=== PATIENT | female | born 1945 | race Caucasian/White ===

== ENCOUNTER → 2018-01-04 18:53 | Outpatient (CLI) | payer MEDICARE, OTHER, SELFPAY | PROVIDERS: Visit Provider Physician Assistant Medical | DX: N39.0 Urinary tract infection, site not specified (principal) | CPT/HCPCS: 87086; 87088; 87186 ==

== ENCOUNTER → 2018-02-24 09:35 | Outpatient (CLI) | payer MEDICARE, OTHER, SELFPAY ==
--- NOTE | 2018-02-24 09:39 | CDU_ITS ---
Reason For Study: CAROTID STENOSIS Rt. Velocities/BP Lt. Velocities/BP Prox CCA 89.1/12.9 cm/sec. Prox CCA 93.2/26.4 cm/sec. Mid CCA 90.3/22.3 cm/sec. Mid CCA 99.1/25.8 cm/sec. Dist CCA 95.0/20.5 cm/sec. Dist CCA 89.7/22.9 cm/sec. Prox ICA 78.0/17.6 cm/sec. Prox ICA 70.4/18.2 cm/sec. Mid ICA 106.0/29.9 cm/sec. Mid ICA 127.0/39.3 cm/sec. Dist ICA 98.9/30.0 cm/sec. Dist ICA 84.2/30.7 cm/sec. Rt. ICA/CCA = 106.0/90.3=1.2. Lt. ICA/CCA = 127.0/99.1=1.3. Prox ECA 92.0/9.38 cm/sec. Prox ECA 86.8/10.6 cm/sec. Rt. Vert. 50.7/10.6 cm/sec. Lt. Vert. 55.4/15.3 cm/sec. Right Extracranial There is homogeneous, smooth atherosclerotic plaque noted in the right common carotid artery. There is homogeneous, smooth atherosclerotic plaque noted in the right internal carotid artery. The right internal carotid artery is very tortuous. There is intimal thickening but no significant atherosclerotic plaque noted in the right external carotid artery. Antegrade flow is noted in the right vertebral artery. There is heterogeneous, irregular atherosclerotic plaque noted in the right bulb. Left Extracranial There is homogeneous, smooth atherosclerotic plaque noted in the left common carotid artery. There is homogeneous, smooth atherosclerotic plaque noted in the left internal carotid artery. The left internal carotid artery is very tortuous. There is intimal thickening but no significant atherosclerotic plaque noted in the left external carotid artery. Antegrade flow is noted in the left vertebral artery. Procedure Carotid Duplex 80373. The exam was diagnostic. Exam performed in department. Interpretation Summary Mild (<50%) stenosis right extracranial internal carotid. Moderate (50-69%) stenosis left extracranial internal carotid. Flow within the vertebral arteries is antegrade bilaterally. Ordering Physician: Ronaldo Durham Referring Physician: Ronaldo Ruiz Performed By: Liberty Green, TYLER, RVT
== END ==
PROVIDERS: Family Provider Family Medicine; PCP Family Medicine; Visit Provider Surgery Vascular Surgery
DX: R09.89 Other specified symptoms and signs involving the circulatory and respiratory systems (principal); M79.89 Other specified soft tissue disorders; M79.604 Pain in right leg; M79.605 Pain in left leg; I10 Essential (primary) hypertension; E07.9 Disorder of thyroid, unspecified; Z87.19 Personal history of other diseases of the digestive system
CPT/HCPCS: 93880

== ENCOUNTER → 2018-03-02 12:36 | Outpatient (CLI) | payer MEDICARE, OTHER, SELFPAY | PROVIDERS: Family Provider Family Medicine; PCP Family Medicine; Visit Provider Nurse Practitioner Adult Health | DX: R82.99 Other abnormal findings in urine (principal) | CPT/HCPCS: 87086; 87088 ==

== ENCOUNTER 2018-03-11 21:33 | Emergency (ER) | payer MEDICARE, OTHER, SELFPAY ==
[2018-03-11 21:35] VITALS: BP 131/76; PULSE 95; RESP 20; TEMP 37.6; O2SAT 96; BMI 24.4
--- NOTE | 2018-03-11 22:14 | CT_ITS ---
STUDY: CT BRAIN WITHOUT CONTRAST REASON FOR EXAM: Female, 72 years old. Headache and fever. Fell 2 weeks ago. RADIATION DOSAGE (If Supplied By Facility): CTDIvol = ( 44.99 ) mGy, DLP = ( 745.49 ) mGycm TECHNIQUE: Transaxial CT imaging of the brain was performed without administration of intravenous contrast material. Individualized dose optimization techniques were used for this CT. COMPARISON: MR brain November 20, [address] brain August 17, 2012 FINDINGS: Normal soft tissue structures. Normal calvarium. Normal size ventricles and extra-axial spaces for the patient's age. Normal white matter tracts of the cerebral hemispheres. Normal basal ganglia and thalami. Normal brainstem. Normal cerebellum. There is no intracranial hemorrhage. There are no findings of an acute ischemic infarction. Normal visualized paranasal sinuses. CT/Brain/Head without Contrast IMPRESSION: Normal unenhanced CT scan of the brain. Electronically Signed: Cain Randhawa MD at 23:06 EDT , Service support ,
--- NOTE | 2018-03-11 22:16 | CT_ITS ---
STUDY: CT CERVICAL SPINE WITHOUT CONTRAST REASON FOR EXAM: Female, 72 years old. Headache. Recent fall. RADIATION DOSAGE (If Supplied By Facility): CTDIvol = ( 15.10 ) mGy, DLP = ( 289.43 ) mGycm TECHNIQUE: High resolution transaxial imaging was performed without contrast material. Sagittal and coronal images were reconstructed. Individualized dose optimization techniques were used for this CT. COMPARISON: March 24, 2014 FINDINGS: Normal craniovertebral junction. Normal anterior atlantoaxial articulation. Normal odontoid process. There is straightening of the normal cervical lordosis. There is no fracture. Normal vertebral bodies and posterior osseous elements. C2-3: Normal endplates. Normal disc height and morphology. Normal central canal and intervertebral neuroforamina. C3-4: Disc bulge with mild spurring. Mild facet spurring.. Normal central canal and intervertebral neuroforamina. C4-5: Disc bulge with mild spurring. Normal central canal and intervertebral neuroforamina. C5-6: Disc space narrowing. Disc bulge and spurring flattening the thecal sac. Uncovertebral spurring bilateral foraminal narrowing. C6-7: Disc space narrowing. Disc bulge and spurring. Mild left foraminal narrowing. C7-T1: Normal endplates. Normal disc height and morphology. Normal central canal and intervertebral neuroforamina. Normal visualized soft tissue structures. CT/Spine Cervical without Contras IMPRESSION: Multilevel degenerative changes, as described above. Electronically Signed: Priyank Pool MD at 23:36 EDT , Service support ,
--- NOTE | 2018-03-11 22:17 | ED.VISSUMM ---
- ER Visit Summary Date of Service: 03/11/18 Chief Complaint: Dysuria, head injury History of Present Illness: The patient is a 72 F here with multiple complaints. Primary today states 1 week history of dysuria and frequency. States saw urology office a week ago, was told her urine was negative. Continue to have symptoms, went to urgent care yesterday was told she had a UTI, placed on Macrobid status post 3 doses. Still has symptoms. Today had a fever of 102.6 forehead at 8 PM this evening. No Tylenol or Motrin taken. Nausea and vomiting ?1. No hematemesis. No abdominal or back pain. No cough. The edition states she took wgnk-mge-oygvyuv Pyridium 1 dose around 1 PM, 3 hours later noticed burning and redness to the lower extremities. No lip or tongue swelling. Also states she had a mechanical fall 2 weeks ago outside in the grass. She hit her head, denies loss of consciousness. Complains of headache neck pain and right shoulder pain from the fall. 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 She has not had this evaluated since the injury. No visual changes. Physical Examination: General: Alert and oriented ?3, no acute distress HEENT: Normocephalic, atraumatic. Moist mucosa membranes. No hemotympanum. No head contusions or lacerations. Neck: supple, no midline tenderness or step-off, paracervical tenderness bilaterally. Cardiovascular: Regular rate and rhythm, no murmurs Respiratory: Normal breath sounds, symmetric, no distress Abdomen: Soft, nontender, nondistended. No guarding or rebound. Extremities: Right upper extremity: No clavicle tenderness. Mild tenderness proximal shoulder with no deformities. Passive full range of motion. Skin intact. Neurovascular intact distally. Lower extremities: Negative logroll bilaterally. Distal pulses intact. Bilateral lower extremities noted erythema to anterior shins, there is no urticaria, nontender, no drainage. Skin intact. Neuro: no focal neurological deficits. Cranial nerves II through XII intact. Test Results: WBC 8.1. Hemoglobin 12.3. Potassium 4.0. Creatinine normal. INR 2.1. Lactic acid 1.1. UA positive leukocytes, blood, white blood cell count 5-10. Urine culture pending. Blood cultures ?[address] head and neck no acute process. Right shoulder x-ray negative. Chest x-ray negative. Emergency Department Course and Treatment: Patient nontoxic, planes of fatigue. Reported temp at home of 102, heart rate was 95. Sepsis protocol initiated. Given IV fluids. Benadryl given for concerns for side effect from her qqws-nrb-dhigtny Pyridium with erythema and burning to the legs. Workup initiated. Results negative except for slight UTI. She states she has persistent dysuria and frequency after 3 doses of Macrobid. She states urine culture was sent by urgent care. Discussed with patient can switch antibiotics and checking up on the culture with urgent care for sensitivities tomorrow. Patient agrees with plan. She is started on Keflex. Culture here is also pending. As for her injury 2 weeks ago on Xarelto, image studies of the head and neck right shoulder are negative. Chest x-ray negative. Complains of headache. Concussion symptoms discussed. She will use Tylenol as needed. She will hold her Macrobid. She will hold her mgnn-oyi-buetzzp Pyridium. Treatment Plan: [] Disposition: Discharge Impression: 1. Urinary tract infection 2. Concussion without loss of consciousness 3.Right shoulder contusion This note was generated with [employer] dictation software. It may contain incorrect words, spelling, and punctuation that were not noted in review of the chart prior to signing ED Disposition - Plan for ED Patient: Disposition: Home or Assisted Living Chief Complaint: General Illness Diagnosis: UTI (urinary tract infection), Concussion without loss of consciousness, initial encounter, Contusion of right shoulder Instructions: ED UTI Cystitis Female, ED Concussion, ED Contusion Soft Tissue Prescriptions: Cephalexin [Keflex] 500 mg PO BID #14 capsule Referrals: Ronaldo Ruiz DO [Primary Care Provider] - 3-5 Days Additional Instructions: Hold her Macrobid. Start Keflex. Call urgent care for culture results. If unable to obtain, can wait for culture results here. Tylenol as needed for headaches. Stop your Pyridium [id number]-hkipxvk, use Benadryl every 6 hours as needed.
--- NOTE | 2018-03-11 22:20 | ED.DCSUM_ITS ---
- ER Visit Summary Date of Service: 03/11/18 Chief Complaint: Dysuria, head injury History of Present Illness: The patient is a 72 F here with multiple complaints. Primary today states 1 week history of dysuria and frequency. States saw urology office a week ago, was told her urine was negative. Continue to have symptoms, went to urgent care yesterday was told she had a UTI , placed on Macrobid status post 3 doses. Still has symptoms. Today had a fever of 102.6 forehead at 8 PM this evening. No Tylenol or Motrin taken. Nausea and vomiting ?1. No hematemesis. No abdominal or back pain. No cough. The edition states she took rtjg-bgb-xehzaxn Pyridium 1 dose around 1 PM, 3 hours later noticed burning and redness to the lower extremities. No lip or tongue swelling. Also states she had a mechanical fall 2 weeks ago outside in the grass. She hit her head, denies loss of consciousness. Complains of headache neck pain and right shoulder pain from the fall. 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 She has not had this evaluated since the injury. No visual changes. Physical Examination: General: Alert and oriented ?3, no acute distress HEENT: Normocephalic, atraumatic. Moist mucosa membranes. No hemotympanum. No head contusions or lacerations. Neck: supple, no midline tenderness or step-off, paracervical tenderness bilaterally. Cardiovascular: Regular rate and rhythm, no murmurs Respiratory: Normal breath sounds, symmetric, no distress Abdomen: Soft, nontender, nondistended. No guarding or rebound. Extremities: Right upper extremity: No clavicle tenderness. Mild tenderness proximal shoulder with no deformities. Passive full range of motion. Skin intact. Neurovascular intact distally. Lower extremities: Negative logroll bilaterally. Distal pulses intact. Bilateral lower extremities noted erythema to anterior shins, there is no urticaria, nontender, no drainage. Skin intact. Neuro: no focal neurological deficits. Cranial nerves II through XII intact. Test Results: WBC 8.1. Hemoglobin 12.3. Potassium 4.0. Creatinine normal. INR 2.1. Lactic acid 1.1. UA positive leukocytes, blood, white blood cell count 5-10. Urine culture pending. Blood cultures ?[address] head and neck no acute process. Right shoulder x-ray negative. Chest x-ray negative. Emergency Department Course and Treatment: Patient nontoxic, planes of fatigue. Reported temp at home of 102, heart rate was 95. Sepsis protocol initiated. Given IV fluids. Benadryl given for concerns for side effect from her over-the- counter Pyridium with erythema and burning to the legs. Workup initiated. Results negative except for slight UTI. She states she has persistent dysuria and frequency after 3 doses of Macrobid. She states urine culture was sent by urgent care. Discussed with patient can switch antibiotics and checking up on the culture with urgent care for sensitivities tomorrow. Patient agrees with plan. She is started on Keflex. Culture here is also pending. As for her injury 2 weeks ago on Xarelto, image studies of the head and neck right shoulder are negative. Chest x-ray negative. Complains of headache. Concussion symptoms discussed. She will use Tylenol as needed. She will hold her Macrobid. She will hold her devz-vdl-slkyhwx Pyridium. Treatment Plan: [] Disposition: Discharge Impression: 1. Urinary tract infection 2. Concussion without loss of consciousness 3.Right shoulder contusion This note was generated with [employer] dictation software. It may contain incorrect words, spelling, and punctuation that were not noted in review of the chart prior to signing ED Disposition - Plan for ED Patient: Disposition: Home or Assisted Living Chief Complaint: General Illness Diagnosis: UTI (urinary tract infection), Concussion without loss of consciousness, initial encounter, Contusion of right shoulder Instructions: ED UTI Cystitis Female, ED Concussion, ED Contusion Soft Tissue Prescriptions: Cephalexin [Keflex] 500 mg PO BID #14 capsule Referrals: Ronaldo Ruiz DO [Primary Care Provider] - 3-5 Days Additional Instructions: Hold her Macrobid. Start Keflex. Call urgent care for culture results. If unable to obtain, can wait for culture results here. Tylenol as needed for headaches. Stop your Pyridium awzi-qza-lkvhhfk, use Benadryl every 6 hours as needed.
[2018-03-11] MEDS: DiphenhydrAMINE 50 MG/ML Syringe 25 MG IV (22:30)
[2018-03-11 22:38] LABS: International Normalized Ratio 2.1
[2018-03-11 22:39] LABS: Partial Thromboplast Time 40.4 Seconds (24.1-36.2)
--- NOTE | 2018-03-11 22:40 | RAD_ITS ---
STUDY: X-RAY - RIGHT SHOULDER REASON FOR EXAM: Female, 72 years old. Injury right shoulder TECHNIQUE: 4 view(s) of the shoulder. COMPARISON: None. FINDINGS: Normal glenohumeral articulation. Normal acromioclavicular joint. Normal acromion. Normal humeral head and visualized proximal humerus. The soft tissue structures are unremarkable. Normal visualized pulmonary apex. RAD/Shoulder min 2 Views IMPRESSION: Normal x-ray examination of the shoulder. Electronically Signed: Cain Randhawa MD at 23:57 EDT , Service support ,
--- NOTE | 2018-03-11 22:40 | RAD_ITS ---
STUDY: X-RAY CHEST REASON FOR EXAM: Female, 72 years old. Fever. TECHNIQUE: PA and lateral views of the chest. COMPARISON: 02/18/2017. FINDINGS: There is mild stranding in the left lung base likely due to scarring. No focal infiltrate is seen. There is no demonstrated pleural abnormality. Normal size heart. Normal mediastinum and tres. Normal visualized pulmonary arteries. There is mild atherosclerotic tortuosity of the aortic arch and descending thoracic aorta. There is levoscoliosis of the lower thoracic spine. Normal visualized ribs, clavicles, and shoulders. There is no demonstrated abnormality of the visualized soft tissue structures of the upper abdomen. RAD/Chest PA and Lateral IMPRESSION: Stranding/scarring in the left lung base. No active pulmonary disease. Electronically Signed: Checo Salinas MD at 23:25 EDT Tel , Service support ,
[2018-03-11 22:42] LABS: Absolute Lymphocyte Count 0.42 X10^3/ul (0.83-4.51); Absolute Neutrophil Count 7.2 X10^3/uL (2.0-7.7); Basophil# 0.04 X10^3/uL; Basophil% 0.5 % (0-1); Eosinophil# 0.07 X10^3/uL; Eosinophils% 0.9 % (0-5); Hematocrit 36.7 % (37-47); Hemoglobin 12.3 g/dl (12.0-15.0); Lymphocyte # 0.42 X10^3/ul (4.0); Lymphocyte % 5.2 % (19-41); Mean Corp Hgb Conc 33.5 g/gl (32-36); Mean Corpuscular Hgb 27.8 pg (27.0-32.0); Mean Platelet Vol. 9.4 fl (6.2-12.0); Monocyte# 0.29 X10^3/uL; Monocyte% 3.6 % (0-10); Neutrophil # 7.24 X10^3/uL (2.7-7.7); Neutrophil % 89.6 % (47-70); Platelet Count 195 K/mm3 (150-450); RBC Distribution Width CV 13.4 % (11.6-14.6); RBC Distribution Width SD 40.7 fl (35.1-43.9); Red Blood Count 4.42 M/mm3 (4.2-5.4); White Blood Count 8.1 K/mm3 (4.4-11.0)
[2018-03-11 22:43] LABS: Differential Indicated SCAN CRITERIA MET; POSITIVE COUNT NO; POSITIVE DIFFERENTIAL YES; POSITIVE MORPHOLOGY NO
[2018-03-11 22:47] LABS: ALB/GLOB Ratio 0.6 RATIO (0.9-2.4); AST(SGOT) 29 U/L (15-37); Alanine Aminotransfer ALT/SGPT 18 U/L (13-56); Albumin, Serum 3.3 g/dL (3.2-5.0); Alkaline Phosphatase 60 U/L (45-117); Anion Gap 8 (5-15); BUN 10 mg/dL (7-18); BUN/Creat Ratio 12.7 RATIO (10-20); Calcium,Total 8.4 mg/dL (8.5-10.1); Chloride 99 mmol/L (98-107); Creatinine, Serum 0.79 mg/dL (0.55-1.02); EST Glomerular Filtration Rate 76 mL/min (>60); Est Glom Filt Rate - Afr Amer 92 mL/min (>60); Estimated Creatinine Clearance 37.24 ml/min; Globulin 5.6 g/dL (2.2-4.2); Glucose 109 mg/dL (74-106); Protein, Total 8.9 g/dL (6.4-8.2); Sodium Level 132 mmol/L (136-145)
[2018-03-11 23:13] LABS: Lactic Acid 1.1 mmol/L (0.4-2.0)
[2018-03-11 23:16] LABS: Differential Comment SCANNED
[2018-03-11 23:17] LABS: Mucous, Urine 0 SEEN /hpf (<or=2+)
[2018-03-11 23:20] LABS: Color, Urine Yellow (Yellow); Glucose, Dipstick Normal (Normal); Ketone-Dipstick 5 mg/dl (Negative); Leukocyte Esterase-Dipstick 100 /ul (Negative); Nitrite-Dipstick Negative (Negative); Occult Blood-Urine 25 /ul (Negative); Protein-Dipstick Negative (Negative); Urine Bilirubin Dipstick Negative (Negative); Urine Clarity Clear (Clear); Urine Urobilinogen Normal (Normal)
[2018-03-11 23:33] LABS: Bacteria RARE /hpf (None Seen); Red Blood Cells-Urine 0-5 SEEN /hpf (0-5); Squamous Epithelial Cells - UA 0-5 SEEN /hpf (5-10); White Blood Cells 5-10 SEEN /hpf (0-5)
[2018-03-12] VITALS: BP 162/63; PULSE 79; RESP 18; O2SAT 92
[2018-03-12] MEDS: Cephalexin 250 MG Capsule 500 MG PO (00:18)
--- NOTE | 2018-03-13 18:21 | ED.RN ---
Called patient at 1325 with no answer or no opportunity to leave messages at two numbers. I recalled at 1816 and explained the preliminary blood culture was positive and Dr Fortune requested she return for additional testing. The patient refused stating she didn't want another Emergency visit to pay. She has an appointment with the Urologist and agreed to return if her sx became worse.
--- NOTE | 2018-03-14 01:34 | ED.RN ---
LAB CALLED WITH POSITIVE BLOOD CULTURES. ANAEROBIC CULTURE POSITIVE AT THIS TIME. GRAM + COCCI. ACCORDING TO PREVIOUS NOTE PATIENT REFUSING FURTHER ER VISIT OR TREATMENT AT THIS TIME. AT THIS TIME I WILL DISCUSS WITH DR. HOWARD BUT PATIENT IS REFUSING FURTHER CARE UNTIL SEEN BY UROLOGIST.
== END 2018-03-12 00:19 | disposition home or self-care (01) ==
PROVIDERS: Emergency Provider Emergency Medicine; Family Provider Family Medicine; PCP Family Medicine
DX: N39.0 Urinary tract infection, site not specified (principal); S06.0X0A Concussion without loss of consciousness, initial encounter; S40.011A Contusion of right shoulder, initial encounter; W19.XXXA Unspecified fall, initial encounter; Y93.9 Activity, unspecified; Y92.9 Unspecified place or not applicable; I10 Essential (primary) hypertension; E03.9 Hypothyroidism, unspecified; M79.7 Fibromyalgia; Z86.711 Personal history of pulmonary embolism; Z86.718 Personal history of other venous thrombosis and embolism; Z90.49 Acquired absence of other specified parts of digestive tract; Z90.710 Acquired absence of both cervix and uterus; Z79.01 Long term (current) use of anticoagulants; Z79.899 Other long term (current) drug therapy
CPT/HCPCS: 36415; 70450; 71046; 72125; 73030; 80053; 81001; 83605; 85025; 85610; 85730; 87040; 87077; 87086; 87088; 87149; 87186; 96361; 96374; 99285; J7030; J7040; A4216

== ENCOUNTER → 2018-04-07 15:15 | Outpatient (CLI) | payer MEDICARE, OTHER, SELFPAY ==
--- NOTE | 2018-04-07 15:17 | BI_ITS ---
MAMMOGRAPHY - BILATERAL SCREENING 3-D ANUSHA SYNTHESIS REASON FOR EXAM: Female, 72 years old. Bilateral Screening 3-D tomosynthesis PERTINENT HISTORY: No significant family history. TECHNIQUE: 2-D mammograms and 3-D Anusha synthesis of the breast (s) were performed. CAD was performed. COMPARISON: 2013 FINDINGS: The breast composition is heterogeneously dense that can obscure small breast masses. There is a new suspicious spiculated mass in the central posterior, slightly medial aspect of the right breast deep near the retroglandular fat. This is highly concerning for neoplastic process and further evaluation with ultrasound is recommended. The left breast is unchanged, no new suspicious mass or nodule noted. Stable vascular calcifications. BI/SCREENING MAMM (CAD), BILAT IMPRESSION: Suspicious new 1.5 cm spiculated mass in the central posterior medial right breast which needs further evaluation with ultrasound. If this mass should again demonstrate suspicious characteristics on ultrasound, biopsy would be recommended. ASSESSMENT CATEGORY: BIRADS Category 0: Incomplete. Need additional imaging evaluation as above. A letter regarding these results will be sent to the patient by the facility within 30 days. FOLLOW UP RECOMMENDATION: Ultrasound Recommended. (I) Approximately 10% of breast cancers are not detected by mammography. A normal mammogram should not delay biopsy of a clinically suspicious abnormality. Electronically Signed: Lawson Dias MD at 7:47 EDT , Service support ,
== END ==
PROVIDERS: Family Provider Family Medicine; PCP Family Medicine; Visit Provider Family Medicine
DX: Z12.31 Encounter for screening mammogram for malignant neoplasm of breast (principal)
CPT/HCPCS: 77063; 77067

== ENCOUNTER → 2018-04-12 11:24 | Outpatient (CLI) | payer MEDICARE, OTHER, SELFPAY ==
--- NOTE | 2018-04-12 11:30 | US_ITS ---
STUDY: ULTRASOUND BREAST - RIGHT REASON FOR EXAM: Female, 72 years old. Abnormal right screening mammogram. TECHNIQUE: Axial and longitudinal images of the RIGHT breast were performed with a high resolution ultrasound transducer. COMPARISON: Comparison is made with prior mammogram dated April 07, 2018. FINDINGS: RIGHT Breast: There is a 9 mm x 8 mm x 8 mm spiculated hypoechoic solid mass at the 1:00 position breast a 6 times from the nipple. A neoplastic process should be ruled out. A biopsy is recommended. US/Breast Limited Unilateral IMPRESSION: The mammographic abnormality corresponds to a 9 mm x 8 mm x 18 mm spiculated mass as described. A biopsy is recommended. ASSESSMENT CATEGORY: BIRADS Category 4: Suspicious - Biopsy Should Be Considered. A letter regarding these results will be sent to the patient by the facility within 30 days. Electronically Signed: Ananda Aguilar MD at 13:53 EDT Tel [phone], Service support ,
== END ==
PROVIDERS: Family Provider Family Medicine; PCP Family Medicine; Visit Provider Family Medicine
DX: N63.10 Unspecified lump in the right breast, unspecified quadrant (principal)
CPT/HCPCS: 76642

== ENCOUNTER → 2018-05-20 17:41 | Outpatient (CLI) | payer MEDICARE, OTHER, SELFPAY | PROVIDERS: Family Provider Family Medicine; PCP Family Medicine; Visit Provider Otolaryngology | DX: J32.0 Chronic maxillary sinusitis (principal) | CPT/HCPCS: 70486 ==

== ENCOUNTER → 2018-11-25 13:09 | Outpatient (CLI) | payer MEDICARE, OTHER, SELFPAY ==
[2018-11-25 14:14] LABS: D-Dimer Quantitative (DVT/PE) 0.89 FEU/ug/m (0.27-0.49)
== END ==
PROVIDERS: Family Provider Family Medicine; PCP Family Medicine; Referring Provider Internal Medicine Pulmonary Disease; Visit Provider Internal Medicine Pulmonary Disease
DX: Z86.711 Personal history of pulmonary embolism (principal); Z86.718 Personal history of other venous thrombosis and embolism
CPT/HCPCS: 36415; 85379

== ENCOUNTER → 2018-11-26 12:47 | Outpatient (CLI) | payer MEDICARE, OTHER, SELFPAY ==
--- NOTE | 2018-11-26 12:55 | VDLE_ITS ---
Reason For Study: Elevated D-Dimer Hx of DVT/PE RIGHT LEFT GSV is normal. GSV is normal. CFV is compressible, spontaneous, phasic, CFV is compressible, spontaneous, phasic, competent and demonstrates normal competent, and demonstrates normal augmentation. augmentation. FV is compressible, spontaneous, phasic, FV is compressible, spontaneous, phasic, competent and demonstrates normal competent and demonstrates normal augmentation. augmentation. POP V is compressible, spontaneous, phasic, POP V is compressible, spontaneous, phasic, competent and demonstrates normal competent and demonstrates normal augmentation. augmentation. T/P Trunk is compressible. T/P Trunk is compressible. PTV is compressible. PTV is compressible. RT PerV is compressible. LT PerV is compressible. Procedure Exam performed in department. A preliminary report was called and/or faxed to Dr. Paulino. Interpretation Summary Deep veins of the lower extremities are bilaterally patent and compressible segmentally. There is no evidence of deep vein thrombosis on either side. Valvular competence appears intact within the proximal deep venous systems bilaterally. The greater saphenous veins appear bilaterally patent and compressible segmentally. Ordering Physician: Anthony Paulino Referring Physician: Ronaldo Ruiz Performed By: Elvira Jerry RVT
== END ==
PROVIDERS: Family Provider Family Medicine; PCP Family Medicine; Referring Provider Internal Medicine Pulmonary Disease; Visit Provider Internal Medicine Pulmonary Disease
DX: Z86.711 Personal history of pulmonary embolism (principal); Z86.718 Personal history of other venous thrombosis and embolism
CPT/HCPCS: 93970

== ENCOUNTER → 2019-01-13 | Outpatient (CLI) | payer MEDICARE, OTHER, SELFPAY ==
--- NOTE | 2019-01-13 14:50 | US_ITS ---
STUDY: RENAL ULTRASOUND - COMPLETE REASON FOR EXAM: Female, 73 years old. Left flank pain TECHNIQUE: Ultrasound evaluation of the kidneys was performed with real-time and static garcia-scale imaging. COMPARISON: None. FINDINGS: RIGHT KIDNEY: Normal location of the right kidney, which is normal in size. The right kidney measures 9.5 cm. There is a normal cortex of the right kidney. The renal cortex measures 1 cm. There is no right renal mass or cyst. There are no right renal calculi. There is no right hydronephrosis. DISTAL RIGHT URETER: There is non-visualization of the distal right ureter. There is no demonstrated right ureterovesical junction calculus. There is no demonstrated right ureteral jet. LEFT KIDNEY: Normal location of the left kidney, which is normal in size. The left kidney measures 10 cm. There is a normal cortex of the left kidney. The renal cortex measures 1.1 cm. There is no left renal mass or cyst. There are no left renal calculi. There is no left hydronephrosis. DISTAL LEFT URETER: There is non-visualization of the distal left ureter. There is no demonstrated left ureterovesical junction calculus. There is no demonstrated left ureteral jet. BLADDER: The distended urinary bladder has a volume of 152 ml. There is a normal wall thickness of the distended urinary bladder. There is no demonstrated mass within the urinary bladder. There are no demonstrated bladder calculi. US/Kidney and Bladder IMPRESSION: Normal ultrasound of the kidneys and urinary bladder. Electronically Signed: Gennydwayne Porter, at 16:32 EDT Tel , Service support ,
== END | disposition home or self-care (01) ==
LOC: US 14:49
PROVIDERS: Family Provider Family Medicine; PCP Family Medicine; Referring Provider Urology; Visit Provider Urology
DX: R10.9 Unspecified abdominal pain (principal)
CPT/HCPCS: 76770

== ENCOUNTER → 2019-03-21 | Outpatient (CLI) | payer MEDICARE, OTHER, SELFPAY ==
--- NOTE | 2019-03-21 12:52 | VDLE_ITS ---
Reason For Study: HX PE/ DVT RIGHT LEFT GSV is normal. GSV is normal. CFV is compressible, spontaneous, phasic, CFV is compressible, spontaneous, phasic, competent and demonstrates normal competent, and demonstrates normal augmentation. augmentation. FV is compressible, spontaneous, phasic, FV is compressible, spontaneous, phasic, competent and demonstrates normal competent and demonstrates normal augmentation. augmentation. POP V is compressible, spontaneous, phasic, POP V is compressible, spontaneous, phasic, competent and demonstrates normal competent and demonstrates normal augmentation. augmentation. T/P Trunk is compressible. T/P Trunk is compressible. PTV is compressible. PTV is compressible. RT PerV is compressible. LT PerV is compressible. There is a very small portion of the POPV that is partially compressible with echogenicity consistent with chronic DVT. Procedure Exam performed in department. A preliminary report was called and/or faxed to DR PAULINO. Interpretation Summary Chronic venous changes are noted in the right popliteal vein, which is partially compressible. The remainder of the deep venous system in both lower extremities is patent and compressible. Valvular competence appears intact within the proximal deep venous systems bilaterally. The greater saphenous veins appear bilaterally patent and compressible segmentally. Ordering Physician: Anthony Paulino Referring Physician: RICARDO ZARCO Performed By: Linda SCOTT, МАРИНА, [place] and Student
== END | disposition home or self-care (01) ==
LOC: CVS 12:50
PROVIDERS: Family Provider Family Medicine; PCP Family Medicine; Referring Provider Internal Medicine Pulmonary Disease; Visit Provider Internal Medicine Pulmonary Disease
DX: Z86.711 Personal history of pulmonary embolism (principal); Z86.718 Personal history of other venous thrombosis and embolism
CPT/HCPCS: 93970

== ENCOUNTER → 2019-04-13 | Outpatient (CLI) | payer MEDICARE, OTHER, SELFPAY ==
[2019-04-12 16:39] VITALS: BMI 24.4
[2019-04-13 15:11] LABS: Bacteria 0 SEEN /hpf (None Seen); Mucous, Urine 0 SEEN /hpf (<or=2+); Squamous Epithelial Cells - UA 0 SEEN /hpf (5-10)
[2019-04-13 15:52] LABS: Color, Urine Yellow (Yellow); Glucose, Dipstick Normal (Normal); Ketone-Dipstick Negative (Negative); Leukocyte Esterase-Dipstick 500 /ul (Negative); Nitrite-Dipstick Negative (Negative); Occult Blood-Urine 250 /ul (Negative); Protein-Dipstick 100 mg/dl (Negative); Specific Gravity, Urine 1.015 (1.002-1.030); Urine Bilirubin Dipstick Negative (Negative); Urine Clarity Cloudy (Clear); Urine Urobilinogen Normal (Normal)
[2019-04-13 16:23] LABS: Red Blood Cells-Urine 0 SEEN /hpf (0-5)
[2019-04-13 16:24] LABS: White Blood Cells >100 SEEN /hpf (0-5)
== END | disposition home or self-care (01) ==
LOC: LABSPEC 15:03
PROVIDERS: Family Provider Family Medicine; PCP Family Medicine; Referring Provider Physician Assistant Surgical; Visit Provider Physician Assistant Surgical
DX: N30.01 Acute cystitis with hematuria (principal)
CPT/HCPCS: 81001; 87077; 87086; 87088; 87186

== ENCOUNTER → 2019-12-19 09:25 | Outpatient (CLI) | payer MEDICARE, OTHER, SELFPAY ==
[2019-04-12 16:39] VITALS: BMI 24.4
--- NOTE | 2019-12-19 09:35 | US_ITS ---
STUDY: SUPERFICIAL ULTRASOUND - RIGHT LATERAL THIGH. REASON FOR EXAM: Female, 74 years old. RT THIGH MASS -SWELLING/PAIN-2 yrs. TECHNIQUE: A superficial ultrasound was performed with real-time and static call-scale imaging. COMPARISON: None. FINDINGS: Sonographic examination of the area of concern along the lateral aspect of the right thigh was obtained. No sonographic abnormality is seen. US/Ext Non Vasc Limited/Soft Tiss IMPRESSION: No sonographic abnormality is seen. Electronically Signed: Ananda Aguilar, at 11:17 EDT , Service support ,
== END ==
PROVIDERS: PCP Family Medicine; Referring Provider Family Medicine; Visit Provider Family Medicine
DX: M79.651 Pain in right thigh (principal)
CPT/HCPCS: 76882

== ENCOUNTER → 2019-12-21 11:33 | Outpatient (CLI) | payer MEDICARE, OTHER, SELFPAY ==
[2019-04-12 16:39] VITALS: BMI 24.4
--- NOTE | 2019-12-21 11:43 | RAD_ITS ---
STUDY: X-RAY - RIGHT FEMUR REASON FOR STUDY: Female, 74 years old. Pt. states NKI, has had the feeling like something ruptured in her leg for years, constant painful burning mid femur area TECHNIQUE: 2 view(s) of the femur. COMPARISON: None. FINDINGS: Normal visualized femur. Total knee replacement. Normal visualized soft tissue structure. RAD/Femur Min 2 Views IMPRESSION: Normal x-ray examination of the femur. Total knee replacement. Electronically Signed: Ananda Aguilar, at 12:42 EDT , Service support ,
== END ==
PROVIDERS: PCP Family Medicine; Referring Provider Family Medicine; Visit Provider Family Medicine
DX: M79.89 Other specified soft tissue disorders (principal); M79.651 Pain in right thigh
CPT/HCPCS: 73552

== ENCOUNTER → 2020-01-13 16:51 | Outpatient (CLI) | payer MEDICARE, OTHER, SELFPAY ==
[2019-04-12 16:39] VITALS: BMI 24.4
[2020-01-13 17:19] LABS: International Normalized Ratio 1.1; Prothrombin Time (Protime)PT. 13.3 SECONDS (11.7-14.9)
== END ==
PROVIDERS: PCP Family Medicine
DX: C50.211 Malignant neoplasm of upper-inner quadrant of right female breast (principal)
CPT/HCPCS: 36415; 85610

== ENCOUNTER → 2020-05-10 12:23 | Outpatient (CLI) | payer MEDICARE, OTHER, SELFPAY ==
[2019-04-12 16:39] VITALS: BMI 24.4
--- NOTE | 2020-05-10 12:31 | RAD_ITS ---
STUDY: X-RAY CHEST REASON FOR EXAM: Female, 74 years old. SOB AND WHEEZING. TECHNIQUE: PA and lateral views of the chest. COMPARISON: Previous study of 03/03/2018 FINDINGS: There is mild linear fibrosis of the left lung base. There is no demonstrated pleural abnormality. Normal size heart. Normal mediastinum and tres. Normal visualized pulmonary arteries. There are calcified plaques of the thoracic aorta. There is a thoracolumbar levoscoliosis. Normal visualized ribs, clavicles, and shoulders. The status post right mastectomy changes. RAD/Chest PA and Lateral IMPRESSION: Apparently status post right mastectomy. Calcified plaques of the thoracic aorta. Thoracolumbar levoscoliosis. No acute cardiopulmonary disease process is seen. Electronically Signed: Ernie Gordon MD at 23:45 EDT , Service support ,
== END ==
PROVIDERS: PCP Family Medicine; Referring Provider Internal Medicine Pulmonary Disease; Visit Provider Internal Medicine Pulmonary Disease
DX: J45.30 Mild persistent asthma, uncomplicated (principal); J47.9 Bronchiectasis, uncomplicated
CPT/HCPCS: 71046

== ENCOUNTER 2021-03-23 05:09 | Inpatient (IN) | payer MEDICARE, OTHER, SELFPAY ==
[2019-04-12 16:39] VITALS: BMI 24.4
[2021-03-23] VITALS (30 sets, daily range): BP systolic 93–156; BP diastolic 39–84; PULSE 56–90; RESP 12–20; TEMP 36.1–37.8; O2SAT 92–100; BMI 25.0; BMI 28.5
--- NOTE | 2021-03-23 05:15 | EKG12_ITS ---
Test Reason : DYSRHYTHMIA Blood Pressure : / mmHG Vent. Rate : 087 BPM Atrial Rate : 087 BPM P-R Int : 148 ms QRS Dur : 082 ms QT Int : 368 ms P-R-T Axes : 029 -19 016 degrees QTc Int : 442 ms Normal sinus rhythm Normal ECG Confirmed by ADRIANA FRIEDMAN, PAULETTE ([id number]), editorial manager CHARITO CATALAN ([id number]) on 03/27/2021 8:54:08 AM Referred By: FRANCESCA Confirmed By:PAULETTE WRIGHT MD
--- NOTE | 2021-03-23 05:16 | EDS_ITS ---
HPI History of Present Illness Chief Complaint: Weakness Informant: patient Onset/Context/Timing Onset: Yesterday Context: Gradual Onset Timing: Continuous Quality: weakness Location: all over Current Severity: Severe Maximum Severity: Severe Worsened by: nothing Relieved by: nothing Associated Symptoms Associated Symptoms: myalgias (feels more in thighs), fever, [employer] cough, nasal congestion Narrative Narrative: 75-year-old patient who lives alone, started having low-grade fevers and chills yesterday along with a cough and nasal congestion, this morning she tried to get up to urinate but was too weak to stand and walk. She did not fall, but called EMS for assistance. EMS states that she is not able to stand at all even with significant assistance due to being very weak. Patient states she has chronic issues urinating, it is hard to empty her bladder and make a good stream. She denies any known new symptoms there. She has chronic pain in both of her legs, states that is feeling worse now but it is not new. She has some mild numbness in her feet, that is no worse than usual. She denies any nausea, vomiting, abdominal pain, diarrhea, melena, bright red blood per rectum, chest pain, or dyspnea. No headache or focal neurologic deficit that is new. She denies fall or injury. She has had both injections of COVID-19 vaccination more than 2 weeks ago. [facility] Medical History Arthritis Cancer Difficulty balancing history of blood clot Hypertension Knee pain Limb weakness Limb weakness Shortness of breath Shoulder pain Thyroid disease Home Medications levothyroxine 50 mcg PO DAILY 12/19/13 [History Last Taken 06/08/17] hydrocodone-acetaminophen 1 ea PO TID 11/15/16 [History Last Taken 06/08/17] alprazolam 1 mg PO TID PRN PRN 02/16/17 [History Last Taken 06/08/17] lidocaine 35 gm TOPICAL TID PRN 03/11/18 [History Last Taken Unknown] cholecalciferol (vitamin D3) 25 mcg (1,000 unit) capsule 1,000 unit PO DAILY 04/12/19 [History Last Taken Unknown] fluticasone propionate 44 mcg/actuation HFA aerosol inhaler 1 inh INHALATION BID 04/12/19 [History Last Taken Unknown] phenazopyridine 100 mg tablet 100 mg PO TID PRN 0 Days #7 tab 04/12/19 [Rx Last Taken Unknown] Allergy/AdvReac Type Severity Reaction Status Date / Time Sulfa (Sulfonamide Allergy Hives Verified 03/23/21 05:15 Antibiotics) oxycodone [From Percocet] AdvReac Other Verified 03/23/21 05:15 Family History Other COPD (chronic obstructive pulmonary disease) Cancer Surgical History H/O elbow surgery H/O knee surgery H/O right mastectomy History of appendectomy History of gastric surgery History of hysterectomy with bilateral oophorectomy Social History Smoking Status: Former smoker alcohol intake: never ROS ROS ED Eyes Eyes: Denies change in vision or diplopia ENT ENT ED: Reports nasal congestion; Denies rhinorrhea or sore throat Cardiovascular Cardiovascular: Denies chest pain or palpitations Respiratory/Chest Respiratory/Chest: Reports cough; Denies dyspnea or sputum Gastrointestinal Gastrointestinal: Denies abdominal pain, diarrhea, nausea or vomiting Genitourinary Genitourinary ED: Reports as per HPI and difficulty urinating; Denies dysuria or hematuria Musculoskeletal Musculoskeletal: Reports as per HPI, extremity pain, muscle weakness and myalgias; Denies back pain or neck pain Integumentary Denies abscess or rash Neurologic Neurologic: Reports paresthesias RLE (chronic stable) and LLE (chronic stable); Denies headache(s) or weakness Psychiatric Psychiatric: Denies anxiety or suicidal thoughts EXAM Physical Exam Const Vital Signs: 03/23/21 05:10 03/23/21 05:15 03/23/21 05:16 Temperature 100.1 F H Temperature Source Oral Pulse Rate 90 Respiratory Rate 14 Respiratory Effort Normal Respiratory Pattern Normal Blood Pressure 141/59 H Blood Pressure Mean 86 Pulse Ox 94 95 Oxygen Delivery Method Room Air Nasal Cannula Oxygen Flow Rate (L/min) 2 03/23/21 05:17 03/23/21 06:15 03/23/21 06:37 Temperature 99.6 F H Temperature Source Oral Pulse Rate 87 82 83 Respiratory Rate 20 H 16 19 H Respiratory Effort Respiratory Pattern Blood Pressure 137/63 H 131/58 H 131/58 H Blood Pressure Mean 87 82 82 Pulse Ox 92 98 98 Oxygen Delivery Method Room Air Nasal Cannula Nasal Cannula Oxygen Flow Rate (L/min) 2 Positive well nourished and well developed General Appearance ED: well developed and NAD HEENT Reports moist mucous membranes normocephalic and atraumatic Eyes PERRL and EOMs intact bilaterally Neck full ROM, no lymphadenopathy and supple Chest Wall inspection of chest normal and palpation of chest normal Resp normal respiratory effort and clear to auscultation bilaterally Cardio regular rate, regular rhythm and no murmurs Rate: Negative for tachycardic GI non-tender and non-distended Auscultation: normoactive bowel sounds Palpation: soft Back/Spine no CVA tenderness General Back: other FROM Extremity normal to inspection Extremity Narrative: Calves and thighs are nontender to palpation, however with attempting to help patient bend her knees and lift her legs, she cries in pain in her thighs. They are normal to inspection, compartments are all soft and symmetric bilaterally. No signs of any lower extremity injury or edema. Strong 2+/4 bilateral dorsalis pedis pulses. General Extremety ED: Negative for edema, pulses abnormal or tenderness General Extremity: Negative for edema or pulses abnormal Neuro oriented x3, CN's II-XII intact bilaterally and no sensory deficits noted Neuro Narrative: Exam is limited by very poor effort exhibited by the patient. Weakness in legs but she can move them. Also weakness in arms but she can also move them. Weakness seems worse proximally than it is distally. Sensorium / Orientation: awake and alert Skin no rashes or lesions noted and no wounds MDM MDM MDM Narrative Medical decision making narrative: Patient is extremely weak, febrile, so septic work-up was ordered and source of infection was sought. As below it appears to be her urine. However, she does not meet SIRS/sepsis criteria. She is not tachycardic, and she is on no AV adrianna blockers or other medications to block a tachycardic response. Her blood pressures have remained normal, she looks ill/weak clinically but is not critical. She was given IV Rocephin soon after we saw the urine results, blood and urine cultures were obtained and sent. Her lactate is elevated. Fluids were ordered. Given how weak she is and her age, plan is for admission. Given her condition and lactate and borderline sepsis, will be monitored closely in the ICU. Lab Data Attestation: I reviewed the patient's lab results. Labs: Laboratory Results - last 24 hr 03/23/21 03/23/21 03/23/21 05:25 05:25 05:25 WBC 9.7 RBC 4.46 Hgb 12.8 Hct 38.3 MCV 85.9 MCH 28.7 MCHC 33.4 RDW Std Deviation 39.0 RDW Coeff of Mahi 12.5 Plt Count 164 MPV 9.4 Immature Gran % (Auto) 0.400 Neut % (Auto) 84.6 H Lymph % (Auto) 6.9 L [place] % (Auto) 2.5 Eos % (Auto) 4.9 Baso % (Auto) 0.7 Absolute Neuts (auto) 8.2 H Absolute Lymphs (auto) 0.67 L Nucleated RBC % 0 Sodium 131 L Potassium 3.8 Chloride 97 L Carbon Dioxide 27.0 Anion Gap 7 BUN 10 Creatinine 1.07 H Estim Creat Clear Calc 38.02 Est GFR (MDRD) Af Amer 64 Est GFR (MDRD) Non-Af 53 L BUN/Creatinine Ratio 9.3 L Glucose 102 Lactic Acid 3.5 H* Calcium 8.5 Total Bilirubin 0.60 AST 28 ALT 21 Alkaline Phosphatase 77 Troponin I High Sens 6.7 Total Protein 8.0 Albumin 3.6 Globulin 4.4 H Albumin/Globulin Ratio 0.8 L Urine Color Urine Clarity Urine pH Ur Specific [place] Urine Protein Urine Glucose (UA) Urine Ketones Urine Occult Blood Urine Nitrite Urine Bilirubin Urine Urobilinogen Ur Leukocyte Esterase Urine RBC Urine WBC Ur Squamous Epith Cells Urine Bacteria Urine Mucus 03/23/21 05:45 WBC RBC Hgb Hct MCV MCH MCHC RDW Std Deviation RDW Coeff of Mahi Plt Count MPV Immature Gran % (Auto) Neut % (Auto) Lymph % (Auto) [place] % (Auto) Eos % (Auto) Baso % (Auto) Absolute Neuts (auto) Absolute Lymphs (auto) Nucleated RBC % Sodium Potassium Chloride Carbon Dioxide Anion Gap BUN Creatinine Estim Creat Clear Calc Est GFR (MDRD) Af Amer Est GFR (MDRD) Non-Af BUN/Creatinine Ratio Glucose Lactic Acid Calcium Total Bilirubin AST ALT Alkaline Phosphatase Troponin I High Sens Total Protein Albumin Globulin Albumin/Globulin Ratio Urine Color Yellow Urine Clarity Clear Urine pH 5.0 Ur Specific [place] 1.015 Urine Protein 100 H Urine Glucose (UA) Normal Urine Ketones Negative Urine Occult Blood 250 H Urine Nitrite Positive H Urine Bilirubin Negative Urine Urobilinogen Normal Ur Leukocyte Esterase 500 H Urine RBC 25-50 SEEN Urine WBC >100 SEEN Ur Squamous Epith Cells 0 SEEN Urine Bacteria 1+ Urine Mucus 0 SEEN Radiography Chest X-Ray - ED: 1 View, Read by ED Physician, No Acute Disease and Chronic Changes Diagnostic Testing: Radiology Impression Chest X-Ray 03/23/21 05:45 IMPRESSION: Mild basilar subsegmental atelectasis. No evidence of other acute cardiopulmonary process. at 0651 Reported and signed by: Garret Smith MD Electronically Signed: Garret Smith MD at 6:49 EDT Tel , Service support , EKG Initial EKG: Attestation: I personally reviewed and interpreted this EKG as follows: Interpretation: Sinus Rhythm and No Acute Injury Pattern Discharge Plan Dx/Rx/DC Orders Clinical Impression: UTI (urinary tract infection), Generalized weakness Disposition Disposition: Acute Care Hospital [facility]
[2021-03-23 05:31] LABS: Absolute Lymphocyte Count 0.67 X10^3/uL (0.83-4.51); Absolute Neutrophil Count 8.2 X10^3/uL (2.0-7.7); Basophil# 0.07 X10^3/uL; Basophil% 0.7 % (0-1); Eosinophil# 0.48 X10^3/uL; Eosinophils% 4.9 % (0-5); Hematocrit 38.3 % (37-47); Hemoglobin 12.8 g/dL (12.0-15.0); Lymphocyte # 0.67 X10^3/ul (0.83-4.51); Lymphocyte % 6.9 % (19-41); Mean Corp Hgb Conc 33.4 g/dL (32-36); Mean Corpuscular Hgb 28.7 pg (27.0-32.0); Mean Corpuscular Volume 85.9 fL (81-99); Mean Platelet Vol. 9.4 fl (6.2-12.0); Monocyte# 0.24 X10^3/uL; Monocyte% 2.5 % (0-10); NRBC Flagged by Analyzer 0 % (0-5); Neutrophil # 8.24 X10^3/uL (2.7-7.7); Neutrophil % 84.6 % (47-70); Platelet Count 164 K/mm3 (150-450); RBC Distribution Width CV 12.5 % (11.6-14.6); Red Blood Count 4.46 M/mm3 (4.2-5.4); White Blood Count 9.7 K/mm3 (4.4-11.0)
[2021-03-23] MEDS: 0.9% Normal Saline 1,000 ML 150 ML IV ×4 (05:31→21:15)
[2021-03-23] MEDS: HYDROcodone Bitartrate/Apap 5/325 Tablet PO ×2 (05:32→16:47)
[2021-03-23] MEDS: Acetaminophen 500 MG Tablet 1000 MG PO (05:32)
--- NOTE | 2021-03-23 05:45 | RAD_ITS ---
HISTORY: cough, fever EXAMINATION/TECHNIQUE: XR Chest 1 View: COMPARISON: May 10, 2020 FINDINGS: LINES/DEVICES: Right lateral chest wall surgical clips. LUNGS: Mild linear subsegmental atelectasis in the bilateral lung bases. No airspace consolidation. Unremarkable interstitium. No effusion. No pneumothorax. MEDIASTINUM: No cardiomegaly. Aortic atherosclersosis. MUSCULOSKELETAL: No acute osseous finding. RAD/Chest 1 View (Portable) IMPRESSION: Mild basilar subsegmental atelectasis. No evidence of other acute cardiopulmonary process. at 0651 Reported and signed by: Garret Smith MD Electronically Signed: Garret Smith MD at 6:49 EDT Tel , Service support ,
[2021-03-23 05:49] LABS: Mucous, Urine 0 SEEN /hpf (<or=2+); Squamous Epithelial Cells - UA 0 SEEN /hpf (5-10)
[2021-03-23 05:49] LABS: ALB/GLOB Ratio 0.8 RATIO (0.9-2.4); AST(SGOT) 28 U/L (15-37); Alanine Aminotransfer ALT/SGPT 21 U/L (13-56); Albumin, Serum 3.6 g/dL (3.2-5.0); Alkaline Phosphatase 77 U/L (45-117); Anion Gap 7 (5-15); BUN 10 mg/dL (7-18); BUN/Creat Ratio 9.3 RATIO (10-20); Calcium,Total 8.5 mg/dL (8.5-10.1); Chloride 97 mmol/L (98-107); Creatinine, Serum 1.07 mg/dL (0.55-1.02); EST Glomerular Filtration Rate 53 mL/min (>60); Est Glom Filt Rate - Afr Amer 64 mL/min (>60); Estimated Creatinine Clearance 38.02 ml/min; Globulin 4.4 g/dL (2.2-4.2); Glucose 102 mg/dL (74-106); Potassium 3.8 mmol/L (3.5-5.1); Sodium Level 131 mmol/L (136-145); Troponin-I HS 6.7 pg/mL (3.0-53.7)
[2021-03-23 05:53] LABS: Color, Urine Yellow (Yellow); Glucose, Dipstick Normal (Normal); Ketone-Dipstick Negative (Negative); Leukocyte Esterase-Dipstick 500 /ul (Negative); Nitrite-Dipstick Positive (Negative); Occult Blood-Urine 250 /ul (Negative); Protein-Dipstick 100 mg/dl (Negative); Specific Gravity, Urine 1.015 (1.002-1.030); Urine Bilirubin Dipstick Negative (Negative); Urine Clarity Clear (Clear); Urine Urobilinogen Normal (Normal)
[2021-03-23 05:56] LABS: Lactic Acid 3.5 mmol/L (0.4-1.9)
[2021-03-23 06:01] LABS: Bacteria 1+ /hpf (None Seen); Red Blood Cells-Urine 25-50 SEEN /hpf (0-5); White Blood Cells >100 SEEN /hpf (0-5)
--- NOTE | 2021-03-23 06:19 | PCM.HP.STD ---
HPI - General General Date of Admission: 03/23/21 HPI Narrative CAROL ANN GARCIA, is a 75 F with a significant history of hypertension; fibromyalgia; diabetes; pulmonary embolism; breast cancer status post mastectomy at the emergency department with a 2-day history of who presents burning urination. Associated with her symptoms is urinary retention; weakness. Patient is too weak that she is unable to walk. She slid down the bathroom because of weakness. She reported home temperature taken by her daughter was 103.8 Fahrenheit. Also emergency department doctor reported tympanic temperature taken by EMS was 104 Fahrenheit. Patient reported taking Canadensis at home. Also she was given Canadensis at the emergency department. Highest temperature at emergency department was 100.1 Fahrenheit. Highest respiratory rate at emergency department was 20 and highest heart rate at emergency department was 90. Reportedly drank barium for test 5 days ago. After the barium test her bowels moved. However in the last 3 days her bowels has not moved. Results of the tests requiring barium reportedly was normal. [facility] Medical History Arthritis Cancer Difficulty balancing history of blood clot Hypertension Knee pain Limb weakness Limb weakness Shortness of breath Shoulder pain Thyroid disease Home Medications levothyroxine 50 mcg PO DAILY 12/19/13 [History Last Taken 06/08/17] hydrocodone-acetaminophen 1 ea PO TID 11/15/16 [History Last Taken 06/08/17] alprazolam 1 mg PO TID PRN PRN 02/16/17 [History Last Taken 06/08/17] lidocaine 35 gm TOPICAL TID PRN 03/11/18 [History Last Taken Unknown] cholecalciferol (vitamin D3) 25 mcg (1,000 unit) capsule 1,000 unit PO DAILY 04/12/19 [History Last Taken Unknown] fluticasone propionate 44 mcg/actuation HFA aerosol inhaler 1 inh INHALATION BID 04/12/19 [History Last Taken Unknown] phenazopyridine 100 mg tablet 100 mg PO TID PRN 0 Days #7 tab 04/12/19 [Rx Last Taken Unknown] Allergy/AdvReac Type Severity Reaction Status Date / Time Sulfa (Sulfonamide Allergy Hives Verified 03/23/21 05:15 Antibiotics) oxycodone [From Percocet] AdvReac Other Verified 03/23/21 05:15 Family History Other COPD (chronic obstructive pulmonary disease) Cancer Surgical History H/O elbow surgery H/O knee surgery H/O right mastectomy History of appendectomy History of gastric surgery History of hysterectomy with bilateral oophorectomy Social History Smoking Status: Former smoker alcohol intake: never ROS ROS Narrative 12 point review of system is negative except as stated in HPI. Vital Signs Vital Signs Vital Signs: 03/23/21 05:10 03/23/21 05:15 03/23/21 05:16 Temperature 100.1 F H Temperature Source Oral Pulse Rate 90 Respiratory Rate 14 Respiratory Effort Normal Respiratory Pattern Normal Blood Pressure 141/59 H Blood Pressure Mean 86 Pulse Ox 94 95 Oxygen Delivery Method Room Air Nasal Cannula Oxygen Flow Rate (L/min) 2 03/23/21 05:17 Temperature Temperature Source Pulse Rate 87 Respiratory Rate 20 H Respiratory Effort Respiratory Pattern Blood Pressure 137/63 H Blood Pressure Mean 87 Pulse Ox 92 Oxygen Delivery Method Room Air Oxygen Flow Rate (L/min) Weight Weight: 66 kg Body Mass Index (BMI) 25.0 Physical Exam Narrative Physical exam: General: Well-nourished, well-developed, no acute distress Head: Normocephalic, atraumatic, no tenderness Eyes: PERRLA, EOMI CVS: Regular rate and rhythm Respiratory no acute distress, mild Rales bases bilaterally, chest wall nontender, no wheezing Abdomen: Soft, nontender, nondistended, normal bowel sounds, no masses : Deferred Back: Nontender, no CVA tenderness, no midline spinal tenderness, deformities, step-offs Extremities: Nontender full range of motion, no trauma Skin: Normal color, no trauma, abrasions Neuro: Alert, oriented, cranial nerves II through XII grossly intact. Results Lab / Micro Data Result Diagrams: 03/23/21 05:25 03/23/21 05:25 Labs: Laboratory Results - last 24 hr 03/23/21 03/23/21 03/23/21 05:25 05:25 05:25 WBC 9.7 RBC 4.46 Hgb 12.8 Hct 38.3 MCV 85.9 MCH 28.7 MCHC 33.4 RDW Std Deviation 39.0 RDW Coeff of Mahi 12.5 Plt Count 164 MPV 9.4 Immature Gran % (Auto) 0.400 Neut % (Auto) 84.6 H Lymph % (Auto) 6.9 L [place] % (Auto) 2.5 Eos % (Auto) 4.9 Baso % (Auto) 0.7 Absolute Neuts (auto) 8.2 H Absolute Lymphs (auto) 0.67 L Nucleated RBC % 0 Sodium 131 L Potassium 3.8 Chloride 97 L Carbon Dioxide 27.0 Anion Gap 7 BUN 10 Creatinine 1.07 H Estim Creat Clear Calc 38.02 Est GFR (MDRD) Af Amer 64 Est GFR (MDRD) Non-Af 53 L BUN/Creatinine Ratio 9.3 L Glucose 102 Lactic Acid 3.5 H* Calcium 8.5 Total Bilirubin 0.60 AST 28 ALT 21 Alkaline Phosphatase 77 Troponin I High Sens 6.7 Total Protein 8.0 Albumin 3.6 Globulin 4.4 H Albumin/Globulin Ratio 0.8 L Urine Color Urine Clarity Urine pH Ur Specific [place] Urine Protein Urine Glucose (UA) Urine Ketones Urine Occult Blood Urine Nitrite Urine Bilirubin Urine Urobilinogen Ur Leukocyte Esterase Urine RBC Urine WBC Ur Squamous Epith Cells Urine Bacteria Urine Mucus 03/23/21 05:45 WBC RBC Hgb Hct MCV MCH MCHC RDW Std Deviation RDW Coeff of Mahi Plt Count MPV Immature Gran % (Auto) Neut % (Auto) Lymph % (Auto) [place] % (Auto) Eos % (Auto) Baso % (Auto) Absolute Neuts (auto) Absolute Lymphs (auto) Nucleated RBC % Sodium Potassium Chloride Carbon Dioxide Anion Gap BUN Creatinine Estim Creat Clear Calc Est GFR (MDRD) Af Amer Est GFR (MDRD) Non-Af BUN/Creatinine Ratio Glucose Lactic Acid Calcium Total Bilirubin AST ALT Alkaline Phosphatase Troponin I High Sens Total Protein Albumin Globulin Albumin/Globulin Ratio Urine Color Yellow Urine Clarity Clear Urine pH 5.0 Ur Specific [place] 1.015 Urine Protein 100 H Urine Glucose (UA) Normal Urine Ketones Negative Urine Occult Blood 250 H Urine Nitrite Positive H Urine Bilirubin Negative Urine Urobilinogen Normal Ur Leukocyte Esterase 500 H Urine RBC 25-50 SEEN Urine WBC >100 SEEN Ur Squamous Epith Cells 0 SEEN Urine Bacteria 1+ Urine Mucus 0 SEEN Micro: Microbiology 03/23/21 05:20 SARS-CoV-2 Antigen (Rapid) - Final Mucosa - Nose Assessment & Plan Assessment/Plan (1) UTI (urinary tract infection): QUALIFIERS: Hematuria presence: with hematuria Urinary tract infection type: acute cystitis Qualified Code(s): N30.01 - Acute cystitis with hematuria PLAN: UTI Patient is at the borderline of SIRS criteria. Has respiratory rate 20 and highest heart rate 90. Reported temperature of 103.8 Fahrenheit at home taken by family; and temperature of 104 Fahrenheit tympanic taken by paramedics. Took Canadensis at home and at the emergency department. Highest temperature at emergency department 100.1 F. Lactic acid: 3.5; trend Emergency department labs reviewed showed normal leukocytosis; but with neutrophilia and lymphopenia. No bandemia. Urinalysis at the emergency department was reviewed: Abnormal Urine culture ordered emergency department; follow Blood culture ?2 is pending Radiologist impression of chest x-ray: Mild basilar subsegmental atelectasis. No evidence of acute cardiopulmonary process. Chest x-ray image was independently reviewed and I agree with radiologist interpretation. Mild Rales at the bases. Incentive parameter ordered. Received normal saline bolus at the emergency department and started on maintenance normal infusion. Normal saline infusion continued. Pyridium continued Trend CBC and BMP. Received ceftriaxone at the emergency department and continued. Admit to the intensive care unit and consult cage supervisor. Hyponatremia Review of Emergency department labs showed sodium of 131; symptomatic hyponatremia IV hydration as above. Trend BMP. Fibromyalgia Lidocaine cream continued Canadensis continued Anxiety disorder Xanax continued DVT prophylaxis: subcutaneous Lovenox ordered Charges/Coding Visit Charges Inpatient E&M: 49597 Init Hosp L3
[2021-03-23] MEDS: Ceftriaxone 1 GM/50 ML BAG IV ×2 (06:41→21:53)
--- NOTE | 2021-03-23 08:26 | EX.PCM.CONCC ---
Assessment & Plan Assessment/Plan (1) Severe sepsis: (2) UTI (urinary tract infection): QUALIFIERS: Urinary tract infection type: acute cystitis Hematuria presence: with hematuria Qualified Code(s): N30.01 - Acute cystitis with hematuria (3) Generalized weakness: (4) Fibromyalgia syndrome: (5) Benign essential hypertension: PLAN: RECOMMENDATIONS: 1. Continue antibiotics 2. Hold on fluid boluses patient is normotensive 3. Monitor for gram-negative syndrome in the intensive care for 24 hours 4. Obtain renal ultrasound for evaluation of hydronephrosis 5. Probable outpatient follow-up with urology IMPRESSIONS: 1. Severe sepsis secondary to UTI secondary to urinary retention Patient with urinary retention at baseline, likely leading to UTI. Given patient's weakness and reported fevers, there is some concern for hydronephrosis. Patient has had laxatives recently, so E. coli would be suspected. Patient has been placed on ceftriaxone and appears to be tolerating this well. Would obtain a renal ultrasound for evaluation of hydronephrosis. Patient does not appear to have a renal stone on physical exam. If patient has hydronephrosis, evaluation by urology may be indicated. Will monitor for gram-negative syndrome and provide fluid boluses as necessary. 2. Acute kidney injury Baseline creatinine appears to be around 0.8. Patient elevated at 1.07 at this time. Clinical suspicion for prerenal and post renal etiologies given urinary retention and problem #1. No indication for renal replacement therapy at this time. May have to monitor for post ATN diuresis. No nephrology consult at this time. 3. Hyponatremia/fibromyalgia/anxiety disorder/hiatal hernia/hypertension Complicates care, management, recovery and prognosis. Likely okay to continue with baseline medications from my perspective. HPI Consult Data Date of Consult: 03/23/21 HPI Narrative HPI Narrative: CAROL ANN GARCIA is a 75 F, with past medical history listed below, who presents to [facility] on 03/23/2021 secondary to weakness and increased myalgias. Patient reportedly started to have lower abdominal fullness sensation approximately a week ago. Patient states she has had issues with urinary retention since she had a bladder suspension, but does not use intermittent catheterizations. This morning, patient was noted to have low-grade fevers, chills, nasal congestion and an inability to walk, so EMS was called. Patient does have fibromyalgia, but believes that her pain is unchanged in her muscles. Patient does have some slight numbness in her feet at baseline but does not feel this is significantly changed. Patient did not report any nausea, vomiting, diarrhea or clinical blood loss. Patient has been vaccinated against COVID-19. In the ER, patient was noted to be 100.1 ?F and 94% on room air. Patient was hemodynamically stable with a blood pressure of 141/59 and no tachycardia. Laboratory data showed no leukocytosis (WBC 9.7), slightly elevated creatinine of 1.07, lactate of 3.5 and glucose of 102. Urinalysis showed greater than 100 WBCs, leukocyte esterase and nitrite positive. Given patient's profound weakness, patient was admitted to the intensive care unit for evaluation of sepsis secondary to UTI. Patient was straight cathed in the ER for over 670 cc. Patient states she has been seen by urology in the past. Patient has not had septic shock that she is aware of. Patient does carry a diagnosis of COPD secondary to previous smoking and states that she has been using her albuterol 3-4 times a day for the last week. Patient had attributed this to the high humidity. Patient does state that she has had urinary tract infections in the past, but this is the first time she has been too weak to stand. Review of systems otherwise negative from a constitutional, HEENT, respiratory, cardiovascular, GI, genitourinary, musculoskeletal, skin, neurologic, psychiatric and hematologic system unless stated above. [facility] Medical History Arthritis Cancer Chronic pain COPD (chronic obstructive pulmonary disease) Difficulty balancing DVT (deep venous thrombosis) Former smoker GERD (gastroesophageal reflux disease) history of blood clot Hypertension Hyperthyroidism Kidney stones Knee pain Limb weakness Limb weakness Migraines Osteoporosis Pulmonary embolism Shortness of breath Shoulder pain Thyroid disease Home Medications levothyroxine 50 mcg PO DAILY 12/19/13 [History Last Taken 06/08/17] hydrocodone-acetaminophen 1 ea PO TID 11/15/16 [History Last Taken 03/22/21 23:00] alprazolam 1 mg PO TID PRN PRN 02/16/17 [History Last Taken 03/22/21 23:00] lidocaine 35 gm TOPICAL TID PRN 03/11/18 [History Last Taken Unknown] cholecalciferol (vitamin D3) 25 mcg (1,000 unit) capsule 1,000 unit PO DAILY 04/12/19 [History Last Taken Unknown] fluticasone propionate 44 mcg/actuation HFA aerosol inhaler 1 inh INHALATION BID 04/12/19 [History Last Taken Unknown] phenazopyridine 100 mg tablet 100 mg PO TID PRN 0 Days #7 tab 04/12/19 [Rx Last Taken Unknown] Allergy/AdvReac Type Severity Reaction Status Date / Time Sulfa (Sulfonamide Allergy Hives Verified 03/23/21 05:15 Antibiotics) oxycodone [From Percocet] AdvReac Other Verified 03/23/21 05:15 Family History Other COPD (chronic obstructive pulmonary disease) Cancer Surgical History H/O elbow surgery H/O knee surgery H/O right mastectomy History of appendectomy History of gastric surgery History of hysterectomy with bilateral oophorectomy Social History Smoking Status: Former smoker alcohol intake: never ROS ROS Narrative See HPI Physical Exam Const alert, oriented x3 and no apparent distress General Appearance: cooperative and well developed HEENT normocephalic, head/scalp atraumatic and moist oral mucous membranes Eyes PERRL and EOMs intact bilaterally Neck full ROM and no lymphadenopathy Chest inspection of chest normal Resp normal respiratory effort and no use of accessory muscles Effort and Inspection: able to speak in complete sentences Auscultation: clear to auscultation bilaterally; Negative for rales, rhonchi or wheezes Percussion: Negative for dullness Cardio regular rate, regular rhythm, S1 normal heart sound, S2 normal heart sound, no murmurs, no rub and no gallops GI normal to inspection, nondistended, normoactive bowel sounds Narrative: Slight CVA tenderness Extremity no clubbing, cyanosis or edema Skin no rashes or lesions noted Neuro oriented x3, CN's II-XII intact bilaterally, moves all extremities and no focal motor deficits Neuro Narrative: Generalized weakness without focal motor deficits Psych cooperative and affect normal Lab / Micro Data Result Diagrams: 03/23/21 05:25 03/23/21 05:25 Labs: Laboratory Results - last 24 hr 03/23/21 03/23/21 03/23/21 05:25 05:25 05:25 WBC 9.7 RBC 4.46 Hgb 12.8 Hct 38.3 MCV 85.9 MCH 28.7 MCHC 33.4 RDW Std Deviation 39.0 RDW Coeff of Mahi 12.5 Plt Count 164 MPV 9.4 Immature Gran % (Auto) 0.400 Neut % (Auto) 84.6 H Lymph % (Auto) 6.9 L [place] % (Auto) 2.5 Eos % (Auto) 4.9 Baso % (Auto) 0.7 Absolute Neuts (auto) 8.2 H Absolute Lymphs (auto) 0.67 L Nucleated RBC % 0 Sodium 131 L Potassium 3.8 Chloride 97 L Carbon Dioxide 27.0 Anion Gap 7 BUN 10 Creatinine 1.07 H Estim Creat Clear Calc 38.02 Est GFR (MDRD) Af Amer 64 Est GFR (MDRD) Non-Af 53 L BUN/Creatinine Ratio 9.3 L Glucose 102 Lactic Acid 3.5 H* Calcium 8.5 Total Bilirubin 0.60 AST 28 ALT 21 Alkaline Phosphatase 77 Troponin I High Sens 6.7 Total Protein 8.0 Albumin 3.6 Globulin 4.4 H Albumin/Globulin Ratio 0.8 L Urine Color Urine Clarity Urine pH Ur Specific [place] Urine Protein Urine Glucose (UA) Urine Ketones Urine Occult Blood Urine Nitrite Urine Bilirubin Urine Urobilinogen Ur Leukocyte Esterase Urine RBC Urine WBC Ur Squamous Epith Cells Urine Bacteria Urine Mucus 03/23/21 05:45 WBC RBC Hgb Hct MCV MCH MCHC RDW Std Deviation RDW Coeff of Mahi Plt Count MPV Immature Gran % (Auto) Neut % (Auto) Lymph % (Auto) [place] % (Auto) Eos % (Auto) Baso % (Auto) Absolute Neuts (auto) Absolute Lymphs (auto) Nucleated RBC % Sodium Potassium Chloride Carbon Dioxide Anion Gap BUN Creatinine Estim Creat Clear Calc Est GFR (MDRD) Af Amer Est GFR (MDRD) Non-Af BUN/Creatinine Ratio Glucose Lactic Acid Calcium Total Bilirubin AST ALT Alkaline Phosphatase Troponin I High Sens Total Protein Albumin Globulin Albumin/Globulin Ratio Urine Color Yellow Urine Clarity Clear Urine pH 5.0 Ur Specific [place] 1.015 Urine Protein 100 H Urine Glucose (UA) Normal Urine Ketones Negative Urine Occult Blood 250 H Urine Nitrite Positive H Urine Bilirubin Negative Urine Urobilinogen Normal Ur Leukocyte Esterase 500 H Urine RBC 25-50 SEEN Urine WBC >100 SEEN Ur Squamous Epith Cells 0 SEEN Urine Bacteria 1+ Urine Mucus 0 SEEN Micro: Microbiology 03/23/21 05:20 SARS-CoV-2 Antigen (Rapid) - Final Mucosa - Nose Radiology Impression Chest X-Ray 03/23/21 05:45 IMPRESSION: Mild basilar subsegmental atelectasis. No evidence of other acute cardiopulmonary process. at 0651 Reported and signed by: Garret Smith MD Electronically Signed: Garret Smith MD at 6:49 EDT Tel , Service support , Charges/Coding Visit Charges Inpatient E&M: 63684 Init Hosp L2
--- NOTE | 2021-03-23 08:38 | US_ITS ---
EXAM: US RETROPERITONEAL LIMITED, RENAL : 1945 CLINICAL INDICATION: Concern for hydronephrosis in setting of UTI TECHNIQUE: Limited grayscale and color Doppler sonographic evaluation of the retroperitoneum was performed. This report was created using [employer] report [employer] technology. COMPARISON: None. FINDINGS: RIGHT KIDNEY: The right kidney measures 9.9 x 4.6 x 6.3 cm. The right renal cortex measures 1.3 cm. No hydronephrosis. No shadowing calculus. No perinephric collection is demonstrated. LEFT KIDNEY: The left kidney measures 10.5 x 4.5 x 5.1 cm. The left renal cortex measures 1.2 cm. No hydronephrosis. No shadowing calculus. No perinephric collection is demonstrated. BLADDER: The bladder measures 10.2 x 7.7 x 8.2 cm for a volume of 336 mL. Neither ureteral jet was visualized. US/Kidney and Bladder IMPRESSION: No acute findings in the retroperitoneum. at 1814 Reported and signed by: Evgeny Peacock MD Electronically Signed: Evgeny Peacock MD at 18:12 EDT Tel , Service support ,
[2021-03-23] MEDS: Budesonide Respules 0.5 MG/2 ML AMPUL.NEB. INHALATION ×2 (09:25→18:57)
[2021-03-23 09:28] LABS: Reflex Lactate? Y
[2021-03-23] MEDS: Enoxaparin 40 MG/0.4 ML Syringe SC (09:39)
[2021-03-23 10:13] LABS: Lactic Acid 0.9 mmol/L (0.4-1.9)
--- NOTE | 2021-03-23 11:05 | CASEMGMT ---
RN CM Face to Face with patient for initial transition planning/care coordination assessment. RN CM introduced self and role at [facility]. Patient lying in bed, alert and oriented. Patient willing to participate in assessment and is able to answer all questions appropriately. Care providers, pharmacy, and demographics verified. Patient wishes to discharge home, possible HHC pending progress with therapy. Patient was provided a list of HHC providers including quality and resource use data and consistent with the patient?s preferred geographic region, medical needs, and insurance network. Patient states she has no further needs or concerns at this time. CM to follow for discharge planning needs that may arise. PCP: Sara Specialists: [facility] Preferred Pharmacy: [facility] Insurance: [employer] Prescription Benefit: yes Living Will/HPOA: yes, Zeus Orellana LNOK: , Daughter Living Arrangements: Patient lives with in a 1 story home with 2 steps and railing to enter the home. Patient states she is independent at home. Transportation: self, DME/HHC: Patient states she has shower chair, raised toilet, cane, walker, grab bars, and oxygen at HS 2lpm through [employer]. Patient denies previous HHC or SNF. Disposition Plan: Patient to discharge home with family support and follow-up plans in place. Will monitor for need for HHC. Armida MISTRY, RN, CM
--- NOTE | 2021-03-23 14:31 | PN_ITS ---
Progress Note Patient is a 75-year-old female was admitted in the early hours of today with a complaint of burning with urination for 2 days with a steady urinary retention and weakness. She was also febrile on admission. Chest x-ray showed mild segmental atelectasis urinalysis was positive for UTI. Lactic acid was also elevated at 3.5. She has been managed for severe sepsis due to UTI and is on IV ceftriaxone. She is also being managed for debility. She has been hydrated with IV fluids and PT OT consulted. Await blood cultures. Continue with IV ant ibiotics. She is also slightly hyponatremic with sodium being 131 and this may be due to some element of dehydration. Will trend sodium. Currently on Lovenox for DVT prophylaxis.
[2021-03-23] MEDS: ALPRAZolam 0.5 MG Tablet 1 MG PO (21:17)
[2021-03-24] VITALS (18 sets, daily range): BP systolic 104–161; BP diastolic 38–68; PULSE 50–79; RESP 13–19; TEMP 36.2–36.8; O2SAT 91–100
[2021-03-24] MEDS: HYDROcodone Bitartrate/Apap 5/325 Tablet PO ×3 (00:33→18:09)
[2021-03-24 03:28] LABS: Absolute Lymphocyte Count 0.91 X10^3/uL (0.83-4.51); Absolute Neutrophil Count 2.9 X10^3/uL (2.0-7.7); Basophil# 0.04 X10^3/uL; Basophil% 0.9 % (0-1); Eosinophil# 0.42 X10^3/uL; Eosinophils% 9.2 % (0-5); Hematocrit 29.4 % (37-47); Hemoglobin 9.8 g/dL (12.0-15.0); Lymphocyte # 0.91 X10^3/ul (0.83-4.51); Lymphocyte % 19.8 % (19-41); Mean Corp Hgb Conc 33.3 g/dL (32-36); Mean Corpuscular Hgb 29.3 pg (27.0-32.0); Mean Corpuscular Volume 87.8 fL (81-99); Mean Platelet Vol. 10.1 fl (6.2-12.0); Monocyte# 0.29 X10^3/uL; Monocyte% 6.3 % (0-10); NRBC Flagged by Analyzer 0 % (0-5); Neutrophil # 2.92 X10^3/uL (2.7-7.7); Neutrophil % 63.6 % (47-70); Platelet Count 121 K/mm3 (150-450); RBC Distribution Width CV 12.8 % (11.6-14.6); RBC Distribution Width SD 41.1 fl (35.1-43.9); Red Blood Count 3.35 M/mm3 (4.2-5.4); White Blood Count 4.6 K/mm3 (4.4-11.0)
[2021-03-24 03:45] LABS: Anion Gap 5 (5-15); BUN 7 mg/dL (7-18); BUN/Creat Ratio 12.2 RATIO (10-20); Calcium,Total 7.7 mg/dL (8.5-10.1); Chloride 110 mmol/L (98-107); Creatinine, Serum 0.58 mg/dL (0.55-1.02); EST Glomerular Filtration Rate 108 mL/min (>60); Est Glom Filt Rate - Afr Amer 131 mL/min (>60); Estimated Creatinine Clearance 35.55 ml/min; Glucose 94 mg/dL (74-106); Potassium 3.5 mmol/L (3.5-5.1); Sodium Level 140 mmol/L (136-145)
[2021-03-24] MEDS: 0.9% Normal Saline 1,000 ML 150 ML IV (03:56)
[2021-03-24] MEDS: Levothyroxine 50 MCG Tablet PO (05:32)
--- NOTE | 2021-03-24 06:32 | PN.CC_ITS ---
Assessment & Plan Assessment/Plan (1) Severe sepsis: (2) UTI (urinary tract infection): QUALIFIERS: Urinary tract infection type: acute cystitis Hematuria presence: with hematuria Qualified Code(s): N30.01 - Acute cystitis with hematuria (3) Generalized weakness: (4) Fibromyalgia syndrome: (5) Benign essential hypertension: PLAN: RECOMMENDATIONS: 1. Continue antibiotics 2. Discontinue IV fluids 3. Okay to leave the intensive care unit. Increase activity as tolerated 4. Hemodynamically stable on room air. Will sign off from a critical care perspective 5. Probable outpatient follow-up with urology IMPRESSIONS: 1. Severe sepsis secondary to UTI secondary to urinary retention Patient with urinary retention at baseline, likely leading to UTI. Given patient's weakness and reported fevers, there is some concern for hydronephrosis. Patient has had laxatives recently, so E. coli would be suspected. Patient has been placed on ceftriaxone and appears to be tolerating this well. Renal ultrasound was negative for hydronephrosis. Discontinue IV fluids as patient has remained normotensive 2. Acute kidney injury Baseline creatinine appears to be around 0.8. Patient elevated at 1.07 at this time. Clinical suspicion for prerenal and post renal etiologies given uri nary retention and problem #1. No indication for renal replacement therapy at this time. May have to monitor for post ATN diuresis. No nephrology consult at this time. 3. Hyponatremia/fibromyalgia/anxiety disorder/hiatal hernia/hypertension Complicates care, management, recovery and prognosis. Likely okay to continue with baseline medications from my perspective. Will verify home medications with pharmacy later this morning 4. Anemia Unclear etiology. Patient has not had any clinical bleeding, but had a significant drop in hemoglobin. Clinical suspicion for hemodilution. IV fluids have been stopped. Subjective Subjective Patient did well overnight. Patient reported poor sleep secondary to confusion about her pain and anxiety medications. Patient was up several times overnight being and denied any dysuria. Objective Data Objective Data Vital Signs: Vital Signs Temp Pulse Resp BP Pulse Ox 36.2 C L 66 16 147/54 H 94 03/24/21 04:00 03/24/21 06:00 03/24/21 06:00 03/24/21 06:00 03/24/21 06:00 Oxygen Flow Rate (L/min) 2 Oxygen Delivery Method Room Air Weight: 69.6 kg Body Mass Index (BMI) 28.5 Intake & Output: Intake and Output for Last 24 Hours 03/22/21 03/23/21 03/24/21 23:59 23:59 23:59 Intake Total 3082.5 / 3322.5 1480 / 1480 Output Total 3200 / 3400 600 / 600 Balance -117.5 / -77.5 880 / 880 Lab / Micro Data Result Diagrams: 03/24/21 03:20 03/24/21 03:20 Labs: Laboratory Results - last 24 hr 03/23/21 03/24/21 03/24/21 09:38 03:20 03:20 WBC 4.6 RBC 3.35 L Hgb 9.8 L Hct 29.4 L MCV 87.8 MCH 29.3 MCHC 33.3 RDW Std Deviation 41.1 RDW Coeff of Mahi 12.8 Plt Count 121 L MPV 10.1 Immature Gran % (Auto) 0.200 Neut % (Auto) 63.6 Lymph % (Auto) 19.8 [place] % (Auto) 6.3 Eos % (Auto) 9.2 H Baso % (Auto) 0.9 Absolute Neuts (auto) 2.9 Absolute Lymphs (auto) 0.91 Nucleated RBC % 0 Sodium 140 Potassium 3.5 Chloride 110 H Carbon Dioxide 25.0 Anion Gap 5 BUN 7 Creatinine 0.58 Estim Creat Clear Calc 35.55 Est GFR (MDRD) Af Amer 131 Est GFR (MDRD) Non-Af 108 BUN/Creatinine Ratio 12.2 Glucose 94 Lactic Acid 0.9 Calcium 7.7 L Micro: Microbiology 03/23/21 05:20 Mucosa - Nose SARS-CoV-2 Antigen (Rapid) - Final Radiography Diagnostic Testing: Radiology Impression Chest X-Ray 03/23/21 05:45 IMPRESSION: Mild basilar subsegmental atelectasis. No evidence of other acute cardiopulmonary process. at 0651 Reported and signed by: Garret Smith MD Electronically Signed: Garret Smith MD at 6:49 EDT Tel , Service support , Renal Ultrasound 03/23/21 08:38 IMPRESSION: No acute findings in the retroperitoneum. at 1814 Reported and signed by: Evgeny Peacock MD Electronically Signed: Evgeny Peacock MD at 18:12 EDT Tel , Service support , Physical Exam Const alert, oriented x3 and no apparent distress General Appearance: cooperative and well developed HEENT normocephalic, head/scalp atraumatic and moist oral mucous membranes Eyes PERRL and EOMs intact bilaterally Neck full ROM and no lymphadenopathy Chest inspection of chest normal Resp normal respiratory effort and no use of accessory muscles Effort and Inspection: able to speak in complete sentences Auscultation: clear to auscultation bilaterally; Negative for rales, rhonchi or wheezes Percussion: Negative for dullness Cardio regular rate, regular rhythm, S1 normal heart sound, S2 normal heart sound, no murmurs, no rub and no gallops GI normal to inspection, nondistended, normoactive bowel sounds Narrative: Slight CVA tenderness Extremity no clubbing, cyanosis or edema Skin no rashes or lesions noted Neuro oriented x3, CN's II-XII intact bilaterally, moves all extremities and no focal motor deficits Neuro Narrative: Generalized weakness without focal motor deficits Psych cooperative and affect normal Charges/Coding Visit Charges Inpatient E&M: 68542 Subs Hosp L2
[2021-03-24] MEDS: Budesonide Respules 0.5 MG/2 ML AMPUL.NEB. INHALATION ×2 (07:46→19:07)
[2021-03-24] MEDS: ALPRAZolam 0.5 MG Tablet 1 MG PO ×2 (08:07→18:08)
[2021-03-24] MEDS: Pregabalin 75 MG Capsule 150 MG PO ×2 (08:08→18:08)
[2021-03-24] MEDS: Enoxaparin 40 MG/0.4 ML Syringe SC (09:18)
[2021-03-24] MEDS: Ceftriaxone 1 GM/50 ML BAG IV ×2 (09:18→21:59)
[2021-03-24] MEDS: CHLORHEXIDINE GLUC 2% CLOTH 1 EACH TOWELETTE TOPICAL (09:18)
--- NOTE | 2021-03-24 12:12 | PN.HOSP_ITS ---
Subjective Subjective Patient acknowledges that she is feeling better. She reports she did not sleep last night because she had not been getting her Lyrica. This is now ordered. She reports that she had a bladder suspension approximately 10 to [address] Jimenez here in [place] and has been following up in [place] at [facility] with a new urologist. She states she has been having increased retention for approximately a year now but has only seen nurse practitioners and feels that she needs to follow-up with the primary urologist as they have not proceeded with any other further work-up. Objective Data Objective Data Vital Signs: Vital Signs Temp Pulse Resp BP Pulse Ox 97.1 F L 53 L 15 114/48 L 94 03/24/21 12:00 03/24/21 12:00 03/24/21 12:00 03/24/21 12:00 03/24/21 12:00 Oxygen Flow Rate (L/min) 1 Oxygen Delivery Method Room Air Weight: 69.1 kg Body Mass Index (BMI) 28.5 Intake & Output: Intake and Output for Last 24 Hours 03/22/21 03/23/21 03/24/21 23:59 23:59 23:59 Intake Total 3082.5 / 3322.5 2410 / 2410 Output Total 3200 / 3400 1200 / 1200 Balance -117.5 / -77.5 1210 / 1210 Lab / Micro Data Result Diagrams: 03/24/21 03:20 03/24/21 03:20 Labs: Laboratory Results - last 24 hr 03/24/21 03/24/21 03:20 03:20 WBC 4.6 RBC 3.35 L Hgb 9.8 L Hct 29.4 L MCV 87.8 MCH 29.3 MCHC 33.3 RDW Std Deviation 41.1 RDW Coeff of Mahi 12.8 Plt Count 121 L MPV 10.1 Immature Gran % (Auto) 0.200 Neut % (Auto) 63.6 Lymph % (Auto) 19.8 [place] % (Auto) 6.3 Eos % (Auto) 9.2 H Baso % (Auto) 0.9 Absolute Neuts (auto) 2.9 Absolute Lymphs (auto) 0.91 Nucleated RBC % 0 Sodium 140 Potassium 3.5 Chloride 110 H Carbon Dioxide 25.0 Anion Gap 5 BUN 7 Creatinine 0.58 Estim Creat Clear Calc 35.55 Est GFR (MDRD) Af Amer 131 Est GFR (MDRD) Non-Af 108 BUN/Creatinine Ratio 12.2 Glucose 94 Calcium 7.7 L Micro: Microbiology 03/23/21 05:20 Mucosa - Nose SARS-CoV-2 Antigen (Rapid) - Final Radiography Diagnostic Testing: Radiology Impression Renal Ultrasound 03/23/21 08:38 IMPRESSION: No acute findings in the retroperitoneum. at 1814 Reported and signed by: Evgeny Peacock MD Electronically Signed: Evgeny Peacock MD at 18:12 EDT Tel , Service support , Physical Exam Const alert, oriented x3, no apparent distress, average body habitus, healthy appearing and well nourished Constitutional Narrative: Elderly white female lying in bed, appears comfortable, nontoxic, no acute distress Exam Limitations: no limitations HEENT head/scalp atraumatic, moist oral mucous membranes and oropharynx normal Head and Scalp: normocephalic Mouth: oral and palatal mucosa normal Eyes PERRL and EOMs intact bilaterally Eyes Narrative: Pale conjunctiva Neck no lymphadenopathy, supple, no JVD and no carotid bruits Resp normal respiratory effort, no retractions, no use of accessory muscles and clear to auscultation bilaterally Auscultation: Negative for crackles, rales, rhonchi or wheezes Cardio regular rhythm, S1 normal heart sound, S2 normal heart sound, no gallops and no clicks; Negative for no murmurs, no rub or no JVD Cardio Narrative: Bradycardia GI normal to inspection, nondistended, normoactive bowel sounds, soft to palpation, non-tender and non-distended; Negative for hepatosplenomegaly Extremity normal to inspection and no clubbing, cyanosis or edema Peripheral Pulses: Yes pulses 2+ throughout Skin no rashes or lesions noted, no wounds, skin turgor normal, no jaundice, no petechiae and no mottling Neuro oriented x3, CN's II-XII intact bilaterally, moves all extremities and no focal motor deficits Neuro Narrative: Generalized weakness but no focal deficit Sensorium / Orientation: awake, alert, oriented to person, oriented to place and oriented to time Speech: speech normal Psych affect normal Psych Narrative: Very pleasant Assessment & Plan Assessment/Plan (1) Severe sepsis: (2) UTI (urinary tract infection): QUALIFIERS: Urinary tract infection type: acute cystitis Hematuria presence: with hematuria Qualified Code(s): N30.01 - Acute cystitis with hematuria (3) Urinary retention: PLAN: Severe sepsis secondary to UTI with urinary retention -History of bladder suspension 10 to 12 years ago -Following up with urology in [place]--> recommend follow-up with the urologist 1 to 2 weeks after discharge -Continue ceftriaxone -Renal ultrasound done on 03/23/2021 and shows no significant abnormalities -All cultures are pending -Her UA however does look infected -Would treat as complicated UTI Lactic acidosis -Resolved PAUL -Resolved -Serum creatinine is now baseline -Continue to monitor -Discontinue IV fluids Hyponatremia -Resolved with hydration Acute anemia -No obvious signs of bleeding -Suspect this is most likely related to hemodilution and sepsis syndrome -We will discontinue IV fluids -Repeat CBC in a.m. Thrombocytopenia -Suspect this is predominantly related to dilution and sepsis syndrome Mild eosinophilia -Question related to medications -Continue to monitor Hypertension -Patient is on no antihypertensives at baseline Hypothyroidism -Continue levothyroxine RLS -Continue Lyrica Anxiety -Continue Xanax as prescribed at home DVT prophylaxis -Continue Lovenox CODE STATUS -Full code Charges/Coding Visit Charges Inpatient E&M: 07316 Subs Hosp L2
[2021-03-24] MEDS: Ondansetron 4 MG/2 ML Vial IV (15:03)
[2021-03-24] MEDS: 0.9% Saline Lock 10 ML Syringe IV (15:03)
[2021-03-24] MEDS: Phenazopyridine 95 MG Tablet PO (20:39)
[2021-03-24] MEDS: Acetaminophen 325 MG Tablet 650 MG PO (20:39)
[2021-03-25 03:01] VITALS: BP 145/57; PULSE 48; RESP 18; TEMP 36.4; O2SAT 99
[2021-03-25] MEDS: HYDROcodone Bitartrate/Apap 5/325 Tablet PO (03:54)
[2021-03-25] MEDS: ALPRAZolam 0.5 MG Tablet 1 MG PO (03:54)
[2021-03-25] MEDS: Pregabalin 75 MG Capsule 150 MG PO (03:54)
[2021-03-25] MEDS: Levothyroxine 50 MCG Tablet PO (03:55)
[2021-03-25 06:07] LABS: Absolute Lymphocyte Count 0.68 X10^3/uL (0.83-4.51); Absolute Neutrophil Count 1.8 X10^3/uL (2.0-7.7); Basophil# 0.03 X10^3/uL; Basophil% 0.9 % (0-1); Eosinophil# 0.45 X10^3/uL; Hematocrit 29.4 % (37-47); Hemoglobin 9.5 g/dL (12.0-15.0); Lymphocyte # 0.68 X10^3/ul (0.83-4.51); Lymphocyte % 21.2 % (19-41); Mean Corp Hgb Conc 32.3 g/dL (32-36); Mean Corpuscular Hgb 28.5 pg (27.0-32.0); Mean Corpuscular Volume 88.3 fL (81-99); Mean Platelet Vol. 10.1 fl (6.2-12.0); Monocyte# 0.28 X10^3/uL; Monocyte% 8.7 % (0-10); NRBC Flagged by Analyzer 0 % (0-5); Neutrophil # 1.76 X10^3/uL (2.7-7.7); Neutrophil % 54.9 % (47-70); Platelet Count 123 K/mm3 (150-450); RBC Distribution Width CV 12.7 % (11.6-14.6); Red Blood Count 3.33 M/mm3 (4.2-5.4); White Blood Count 3.2 K/mm3 (4.4-11.0)
[2021-03-25 06:31] LABS: Anion Gap 5 (5-15); BUN 7 mg/dL (7-18); Calcium,Total 8.3 mg/dL (8.5-10.1); Chloride 107 mmol/L (98-107); Creatinine, Serum 0.58 mg/dL (0.55-1.02); EST Glomerular Filtration Rate 106 mL/min (>60); Est Glom Filt Rate - Afr Amer 128 mL/min (>60); Estimated Creatinine Clearance 35.55 ml/min; Glucose 89 mg/dL (74-106); Potassium 3.4 mmol/L (3.5-5.1); Sodium Level 139 mmol/L (136-145)
--- NOTE | 2021-03-25 06:37 | PCM.PN.HOSP ---
Objective Data Objective Data Vital Signs: Vital Signs Temp Pulse Resp BP Pulse Ox 97.5 F L 48 L 18 145/57 H 99 03/25/21 03:01 03/25/21 03:01 03/25/21 03:01 03/25/21 03:01 03/25/21 03:01 Oxygen Flow Rate (L/min) 2 Oxygen Delivery Method Nasal Cannula Weight: 157 lb 6.561 oz Body Mass Index (BMI) 28.5 Intake & Output: Intake and Output for Last 24 Hours 03/23/21 03/24/21 03/25/21 23:59 23:59 23:59 Intake Total 3082.5 / 3322.5 3135.75 / 3135.75 300 / 300 Output Total 3200 / 3400 1200 / 1200 Balance -117.5 / -77.5 1935.75 / 1935.75 300 / 300 Lab / Micro Data Result Diagrams: 03/25/21 05:50 03/25/21 05:50 Labs: Laboratory Results - last 24 hr 03/25/21 05:50: WBC 3.2 L, RBC 3.33 L, Hgb 9.5 L, Hct 29.4 L, MCV 88.3, MCH 28.5, MCHC 32.3, RDW Std Deviation 41.0, RDW Coeff of Mahi 12.7, Plt Count 123 L, MPV 10.1, Immature Gran % (Auto) 0.300, Neut % (Auto) 54.9, Lymph % (Auto) 21.2, [place] % (Auto) 8.7, Eos % (Auto) 14.0 H, Baso % (Auto) 0.9, Absolute Neuts (auto) 1.8 L, Absolute Lymphs (auto) 0.68 L, Nucleated RBC % 0 03/25/21 05:50: Sodium 139, Potassium 3.4 L, Chloride 107, Carbon Dioxide 27.0, Anion Gap 5, BUN 7, Creatinine 0.58, Estim Creat Clear Calc 35.55, Est GFR (MDRD) Af Amer 128, Est GFR (MDRD) Non-Af 106, BUN/Creatinine Ratio 12.0, Glucose 89, Calcium 8.3 L Micro: Microbiology 03/23/21 05:45 Urine Catheter - Catheter Urine Culture - Preliminary Presumptive E. coli 03/23/21 05:20 Mucosa - Nose SARS-CoV-2 Antigen (Rapid) - Final
[2021-03-25 07:14] VITALS: PULSE 71; RESP 16; O2SAT 93
[2021-03-25] MEDS: Budesonide Respules 0.5 MG/2 ML AMPUL.NEB. INHALATION (07:14)
[2021-03-25] MEDS: Potassium Chloride Oral Tablet 20 MEQ 40 MEQ PO (07:34)
[2021-03-25 09:00] VITALS: BP 131/67; PULSE 66; RESP 18; TEMP 37.2; O2SAT 98
--- NOTE | 2021-03-25 10:05 | CASEMGMT ---
Addendum entered by Leticia Silveira 03/25/21 12:18: Pt qualifies for a Palliative referral per the [facility] palliative screening tool at this time. Dr Bermudez aware but is not agreeable to Palliative referral at this time. Valeria MISTRY RN, CM Original Note: BRAIN SANCHEZ NOTE: PT/OT evals/notes reviewed. Additional therapy recommended. BRAIN SANCHEZ to room to discuss discharge planning and she was made aware of therapy's recommendations. Pt states she wishes to return home and has no concerns w/going home. She denies need for HHC or OP therapy at this time, stating that once she returns home, she feels she will be more active and able to get back to her baseline. Pt states, If I'm not able to re-gain my strength, then I may do some therapy. BRAIN SANCHEZ offered to set up HHC or to give her a script for OP therapy, but she declines. She was made aware, if once she returns home she is interested in either, to discuss options w/her PCP. She voices understanding. Valeria MISTRY RN, CM
[2021-03-25] MEDS: 0.9% Saline Lock 10 ML Syringe IV (10:32)
[2021-03-25] MEDS: Ondansetron 4 MG/2 ML Vial IV (10:32)
[2021-03-25] MEDS: Ceftriaxone 1 GM/50 ML BAG IV (10:32)
[2021-03-25] MEDS: Enoxaparin 40 MG/0.4 ML Syringe SC (10:33)
--- NOTE | 2021-03-25 11:03 | PCM.DC.SUM ---
Providers Date of Admission: 03/23/21 Primary Care Physician: Dr. Ronaldo Ruiz, Consultations 03/23/21 07:43 Consult: Hearing Screener / Pulmonary Medicine Routine Consulting Provider: Brandon Neff Reason for Consult: uti, lactic acidosis EMERGENT Consult: No MD Notified: Yes Date Notified: 03/23/21 Time Notified: 07:08 Method of Notification: 6:55 Reason For Visit: UTI Diagnosis Discharge Diagnosis (1) Severe sepsis: Status: Acute Code(s): A41.9 - Sepsis, unspecified organism; R65.20 - Severe sepsis without septic shock (2) UTI (urinary tract infection): Status: Acute Code(s): N39.0 - Urinary tract infection, site not specified Qualifiers: Hematuria presence: with hematuria Urinary tract infection type: acute cystitis Qualified Code(s): N30.01 - Acute cystitis with hematuria (3) Urinary retention: Status: Acute Code(s): R33.9 - Retention of urine, unspecified Medications at Discharge Home Medications levothyroxine 50 mcg PO DAILY 12/19/13 alprazolam 1 mg PO TID PRN PRN 02/16/17 lidocaine 35 gm TOPICAL TID PRN 03/11/18 cholecalciferol (vitamin D3) 25 mcg (1,000 unit) capsule 1,000 unit PO DAILY 04/12/19 fluticasone propionate 44 mcg/actuation HFA aerosol inhaler 1 inh INHALATION BID 04/12/19 hydrocodone-acetaminophen 1 tab PO TID PRN 03/24/21 pregabalin 150 mg PO TID PRN 03/24/21 cefdinir 300 mg PO BID #14 cap 03/25/21 ondansetron HCl [Zofran] 4 mg PO Q8H PRN #20 tab 03/25/21 phenazopyridine [Pyridium] 100 mg PO TID PRN 0 Days #7 tab 03/25/21 Hospital Course Operations None Procedures EKG Summary of Care Provided Minutes Spent on Discharge: 35 Hospital Course: Discharge Diagnoses: 1. Acute severe sepsis secondary to acute complicated E. coli urinary tract infection with associated urinary retention 2. Lactic acidosis secondary to #1, resolved 3. Acute kidney injury secondary to #1, resolved 4. Hyponatremia, hypovolemic secondary to #1, #2, resolved 5. Acute anemia with no obvious evidence of bleeding secondary to suspected hemodilution and sepsis syndrome 6. Acute thrombocytopenia secondary to suspected hemodilution and sepsis syndrome 7. Hypertension 8. Hypothyroidism 9. Restless leg syndrome 10. Anxiety Discharge Summary: The patient is a 75 y/o F w/ PMHx: Anxiety, HTN, Hypothyroidism, RLS, Fibromyalgia, Hx VTE remotely, hx Breast CA s/p mastectomy, Hx frequent UTI w/ bladder suspension surgery following w/ Urologist in [place] who presents to the [facility] ED on 03/23/21 w/ 2-day history of dysuria with fatigue, malaise and urinary retention with family assessment with significant elevated temperatures and inability to even get up off the toilet secondary to the severity of her weakness prompting EMS evaluation. Upon ED evaluation patient with notable lactic acidosis 3.5 with severe sepsis. Given presentation patient was admitted to the ICU with glory hole tender consultation, maintained on Rocephin with aggressive hydration per protocol. Patient clinically improved and was transitioned to the [place]. Patient kidney injury noted upon admission clinically resolved as well as lactic acidosis with aggressive hydration and temporary hold on nephrotoxic medication. Renal ultrasound was performed 03/23/2021 with no significant abnormalities. Patient did have decreased hemoglobin felt secondary to hemodilution and sepsis syndrome with no obvious evidence of bleeding. Patient evaluated by therapies and felt to be appropriate for discharge to home. Urine culture did result with E. coli with decent sensitivities and patient was transitioned from IV Rocephin upon discharge to oral antibiotic therapy with recommendations for completion. Patient offered local urologist but noted she has been following for many years with a urologist in [place] and patient is amenable to following up with him at this time. Given patient clinical improvement patient discharged home in improved, stable condition with recommended follow-up outpatient with PCP as well as urologist. Discharge Time: > 35 Minutes DAY OF DISCHARGE PROGRESS NOTE: Subjective: Patient without acute event overnight per self and nursing report. Patient denies fever, chills, nausea, emesis, abdominal pain, chest pain or dyspnea. Patient up and moving with therapies in the room without issue. She does feel as though she can take care of herself at home and is amenable to discharge. Discussed current urine culture and plan to transition to oral antibiotic therapy and strongly recommended this be taken to completion. Discussed patient's current urologist in [place] and she notes she will follow up. Patient will be discharged with follow-up with primary care physician within 3-5 days in addition to follow-up with her urologist. Objective: T 98.9, heart rate 66, BP 131/67, respiratory rate 18, 98% on room air. Physical Examination: General: awake, alert, oriented x 3 and cooperative, seated upright in the medical surgical bed, NAD. Skin: normal color, turgor, no icterus, cyanosis. HEENT: AT/NC, EOMI, PERRLA, MMM. Lungs: Mildly diminished, greater bases, appropriate effort, no rales, ronchi or wheezing; Heart: Regular rate and rhythm; no gallop, rub audible. Abdomen: soft, minimal discomfort with suprapubic region palpation, notes notably improved with otherwise NTTP abdomen, ND, normal BS. Extremities: no cyanosis, clubbing, or edema. Neurological: patient awake, alert, oriented as noted; cognitive function appears intact upon questioning,; pupils equally reactive to light and accomodation; cranial nerves II-XII grossly normal, moving all 4 extremities, strength improving, mildly global decreased, working with therapies, moving the room also by her self. Psychiatric: affect appears improved, mildly fatigued otherwise normal, no acute evidence of depressive or anxiety feelings. Assessment and Plan: Please see hospital summary above. Weight / BMI Weight Weight: 157 lb 6.561 oz Body Mass Index (BMI) 28.5 ABG / Lab / Microbiology Data Result Diagrams: 03/25/21 05:50 03/25/21 05:50 Laboratory: Laboratory Results - last 24 hr 03/25/21 05:50: WBC 3.2 L, RBC 3.33 L, Hgb 9.5 L, Hct 29.4 L, MCV 88.3, MCH 28.5, MCHC 32.3, RDW Std Deviation 41.0, RDW Coeff of Mahi 12.7, Plt Count 123 L, MPV 10.1, Immature Gran % (Auto) 0.300, Neut % (Auto) 54.9, Lymph % (Auto) 21.2, [place] % (Auto) 8.7, Eos % (Auto) 14.0 H, Baso % (Auto) 0.9, Absolute Neuts (auto) 1.8 L, Absolute Lymphs (auto) 0.68 L, Nucleated RBC % 0 03/25/21 05:50: Sodium 139, Potassium 3.4 L, Chloride 107, Carbon Dioxide 27.0, Anion Gap 5, BUN 7, Creatinine 0.58, Estim Creat Clear Calc 35.55, Est GFR (MDRD) Af Amer 128, Est GFR (MDRD) Non-Af 106, BUN/Creatinine Ratio 12.0, Glucose 89, Calcium 8.3 L Microbiology: Microbiology 03/23/21 05:45 Urine Catheter - Catheter Urine Culture - Final Presumptive E. coli 03/23/21 05:38 Blood Culture (Wb) - Left Hand Blood Culture - Preliminary No growth in 48 hours. 03/23/21 05:25 Blood Culture (Wb) - Anticubital Left Blood Culture - Preliminary No growth in 48 hours. 03/23/21 05:20 Mucosa - Nose SARS-CoV-2 Antigen (Rapid) - Final Meaningful Use Info Meaningful Use Diagnoses (Choose all that apply): None applicable Discharge Plan Admission Admit Date/Time: 03/23/21 06:53 Primary Reason for Your Visit: Severe Sepsis, Complicated UTI, PAUL Attending Provider: Solange Bermudez Primary Care Provider: Ronaldo Ruiz Consulting Providers: Brandon Neff Instructions Patient Instructions: Urinary Tract Infections in Women, Understanding Urinary Tract ... Additional Instructions / Restrictions: Please have repeat basic metabolic function repeat with your primary care following your discharge to assure continued resolved acute kidney injury associated with your recent urinary tract infection. Please complete your antibiotic therapy. During the admission your hemoglobin did decrease with no evidence of bleeding and was felt secondary to hemodilution given your aggressive hydration with your acute presentation. Please have repeat complete blood count at follow-up also with your primary care physician and outpatient assessments/studies to further assess the reason for your decreased hemoglobin level if ongoing. Discharge Orders/Prescriptions Prescriptions: New ondansetron HCl [Zofran] 4 mg tablet 4 mg PO Q8H PRN (Reason: nausea and vomiting) Qty: 20 RF: 0 cefdinir 300 mg capsule 300 mg PO BID Qty: 14 RF: 0 Continued Flovent HFA 44 mcg/actuation HFA aerosol inhaler 1 inh INHALATION BID RF: 0 cholecalciferol (vitamin D3) 1,000 unit capsule 1,000 unit capsule 1,000 unit PO DAILY RF: 0 levothyroxine 50 MCG tablet 50 mcg PO DAILY RF: 0 alprazolam 1 MG tablet 1 mg PO TID PRN PRN (Reason: Anxiety) RF: 0 lidocaine 35 GM ointment 35 gm topical TID PRN (Reason: Pain) RF: 0 hydrocodone-acetaminophen 10-325 mg tablet 1 tab PO TID PRN (Reason: Pain) RF: 0 pregabalin 150 mg capsule 150 mg PO TID PRN (Reason: Pain) RF: 0 phenazopyridine [Pyridium] 100 mg tablet 100 mg PO TID PRN (Reason: pain) 0 Days Qty: 7 RF: 0 Referrals / Follow Up: Urologist, [place] [Other] - Within 2 Weeks (Please follow-up within 1-2 weeks to review admission, discuss possible future assessments, need for possible long-term antibiotic prophylaxis. I HAVE NO NAME OR OHONE NUMBER FOR THIS PT. PLEASE CALL AND SCHEDULE YOUR APPOINTMENT. THANK YOU.) Ronaldo Ruiz DO [Primary Care Provider] - (DR.BRETT RUIZ ([facility]) 03-27-2021 @ 0345 PM) Disposition Disposition (needs filled in before D/C Order can be placed): Home, Self Care Charges/Coding Visit Charges Inpatient E&M: 10015 Disch Hosp
--- NOTE | 2021-03-25 11:44 | PHA.DC.MC ---
Pharmacy Service has performed discharge medication reconciliation and counseling for this patient. 1. CEFDINIR 300MG PO BID X 7 DAYS 2. ONDANSETRON 4MG PO Q8H PRN NAUSEA/VOMITING The patient's discharge medication list was reviewed for discrepancies and discrepancies were resolved. Home Medications levothyroxine 50 mcg PO DAILY 12/19/13 alprazolam 1 mg PO TID PRN PRN 02/16/17 lidocaine 35 gm TOPICAL TID PRN 03/11/18 cholecalciferol (vitamin D3) 25 mcg (1,000 unit) capsule 1,000 unit PO DAILY 04/12/19 fluticasone propionate 44 mcg/actuation HFA aerosol inhaler 1 inh INHALATION BID 04/12/19 hydrocodone-acetaminophen 1 tab PO TID PRN 03/24/21 pregabalin 150 mg PO TID PRN 03/24/21 cefdinir 300 mg PO BID #14 cap 03/25/21 ondansetron HCl [Zofran] 4 mg PO Q8H PRN #20 tab 03/25/21 phenazopyridine [Pyridium] 100 mg PO TID PRN 0 Days #7 tab 03/25/21 The patient was counseled on the following discharge medications and changes in medications for homegoing were reviewed. The Reason for Use, instructions for use, and potential side effects were reviewed for all new medications. The patient's questions regarding all of their medications were answered. The patient was able to verbally demonstrate an understanding of their discharge medications.
[2021-03-25 13:50] VITALS: BP 144/60; PULSE 64; RESP 18; TEMP 36.7; O2SAT 98
--- NOTE | 2021-03-26 13:59 | CASEMGMT ---
BRAIN CM Discharge Follow-up Phone Call: DAIN: Josie Strata: 3 Call Date: 03/26/21 Discharge Date: 03/25/21 Time of Call: 1400 Duration: 1 min Admitting Diagnosis: UTI RN CM attempted to complete follow-up phone call after recent hospitalization. No answer, voice message left with return contact information.
== END 2021-03-25 13:35 | disposition home or self-care (01) | DRG 872 ==
LOC: ED 06:46 → ICU 07:07 → MS3 03-25 06:11 → ICU 03-25 15:21
PROVIDERS: Internal Medicine; Admitting Provider Hospitalist; Emergency Provider Emergency Medicine; PCP Family Medicine; Visit Provider Family Medicine
DX: A41.9 Sepsis, unspecified organism (principal); N30.01 Acute cystitis with hematuria; J98.11 Atelectasis; E87.1 Hypo-osmolality and hyponatremia; N17.9 Acute kidney failure, unspecified; R65.20 Severe sepsis without septic shock; B96.20 Unspecified Escherichia coli [E. coli] as the cause of diseases classified elsewhere; D64.9 Anemia, unspecified; D72.10 Eosinophilia, unspecified; D69.59 Other secondary thrombocytopenia; E86.1 Hypovolemia; M19.90 Unspecified osteoarthritis, unspecified site; E11.9 Type 2 diabetes mellitus without complications; M79.7 Fibromyalgia; G89.29 Other chronic pain; G25.81 Restless legs syndrome; F41.9 Anxiety disorder, unspecified; J44.9 Chronic obstructive pulmonary disease, unspecified; K21.9 Gastro-esophageal reflux disease without esophagitis; I10 Essential (primary) hypertension; M81.0 Age-related osteoporosis without current pathological fracture; G43.909 Migraine, unspecified, not intractable, without status migrainosus; E03.9 Hypothyroidism, unspecified; K44.9 Diaphragmatic hernia without obstruction or gangrene; Z85.3 Personal history of malignant neoplasm of breast; Z86.711 Personal history of pulmonary embolism; Z79.899 Other long term (current) drug therapy; Z87.891 Personal history of nicotine dependence; Z90.11 Acquired absence of right breast and nipple; Z86.718 Personal history of other venous thrombosis and embolism
CPT/HCPCS: 36415; 71045; 76770; 80048; 80053; 81001; 83605; 84484; 85025; 87040; 87086; 87088; 87186; 87426; 93005; 94640; 97162; 97166; 97535; 97802; 97803; 99251; 99285; J7030; J7050; A4216; G0463; J2405

== ENCOUNTER → 2021-06-25 11:06 | Outpatient (CLI) | payer MEDICARE, OTHER, SELFPAY ==
[2021-06-25 12:08] LABS: Absolute Lymphocyte Count 2.02 X10^3/uL (0.83-4.51); Absolute Neutrophil Count 1.7 X10^3/uL (2.0-7.7); Basophil% 2.2 % (0-1); Eosinophil# 0.51 X10^3/uL; Hematocrit 34.9 % (37-47); Hemoglobin 11.7 g/dL (12.0-15.0); Lymphocyte # 2.02 X10^3/ul (0.83-4.51); Lymphocyte % 43.6 % (19-41); Mean Corp Hgb Conc 33.5 g/dL (32-36); Mean Corpuscular Hgb 28.7 pg (27.0-32.0); Mean Corpuscular Volume 85.5 fL (81-99); Mean Platelet Vol. 10.7 fl (6.2-12.0); Monocyte# 0.31 X10^3/uL; Monocyte% 6.7 % (0-10); NRBC Flagged by Analyzer 0 % (0-5); Neutrophil # 1.68 X10^3/uL (2.7-7.7); Neutrophil % 36.3 % (47-70); Platelet Count 192 K/mm3 (150-450); RBC Distribution Width CV 12.8 % (11.6-14.6); RBC Distribution Width SD 39.8 fl (35.1-43.9); Red Blood Count 4.08 M/mm3 (4.2-5.4); White Blood Count 4.6 K/mm3 (4.4-11.0)
[2021-06-25 12:41] LABS: CRP 8.42 mg/L (0.0-3.0)
== END ==
PROVIDERS: PCP Family Medicine
DX: M25.561 Pain in right knee (principal)
CPT/HCPCS: 36415; 85025; 86140

== ENCOUNTER 2021-09-10 12:16 | Emergency (ER) | payer MEDICARE, OTHER, SELFPAY ==
[2021-09-10 12:16] VITALS: BP 135/67; PULSE 95; RESP 18; TEMP 36.1; O2SAT 95; BMI 29.2
[2021-09-10 12:18] VITALS: BP 135/67; PULSE 95; RESP 18; TEMP 36.1; O2SAT 95
--- NOTE | 2021-09-10 14:08 | RAD_ITS ---
STUDY: X-RAY - RIGHT HUMERUS REASON FOR EXAM: Female, 76 years old. Pain after trauma TECHNIQUE: 3 view(s) of the humerus. COMPARISON: None. FINDINGS: Normal visualized humerus. There is no demonstrated fracture or osseous destructive process. There is no demonstrated soft tissue abnormality. RAD/Humerus min 2 Views IMPRESSION: Normal x-ray examination of the humerus. Electronically Signed: Lawson Dias MD at 15:22 EST , Service support ,
--- NOTE | 2021-09-10 14:08 | RAD_ITS ---
EXAM: XR RIGHT RIBS AND AP CHEST, 3 OR MORE VIEWS CLINICAL INDICATION: fall TECHNIQUE: Frontal and oblique views of the right ribs and frontal view of the chest. This report was created using for; to (do) report generation technology. COMPARISON: None. FINDINGS: LUNGS AND PLEURAL SPACES: Unremarkable. No consolidation or edema. No pneumothorax. No effusion. HEART: Unremarkable. Cardiac silhouette not enlarged. MEDIASTINUM: Central airways and mediastinal contour are unremarkable. BONES/JOINTS: Unremarkable. No evidence of displaced rib fractures. Surgical clips overlie the right axilla. Scoliosis. RAD/Ribs Uni Min 3V w/PA Chest IMPRESSION: No demonstrated rib fracture. Electronically Signed: Abrahan Michael MD ([place]) at 15:17 EST , Service support ,
--- NOTE | 2021-09-10 14:10 | EDS_ITS ---
HPI History of Present Illness Chief Complaint: Complaint Detail of Chief Complaint: Patient with urinary symptoms for last 3 days Informant: patient Narrative Narrative: Patient presents to the emergency department chief complaint of dys uria for 3 days. Patient was seen at urgent care on the and diagnosed with a UTI and started on Keflex. Patient started vomiting after taking the Keflex. She complains of some pain in her back. She complains of generalized weakness. She had a fall down her steps today and fell down about 2 steps and injured her right arm and right ribs. She denies striking her head. No loss of consciou sness. She denies any neck pain. She denies significant abdominal pain. She had some mild discomfort in her back especially on the left. Patient denies any fevers. She denies any cough. She denies diarrhea. Prior similar symptoms: Yes PFSH PFSH Medical History Arthritis Cancer Chronic pain COPD (chronic obstructive pulmonary disease) Difficulty balancing DVT (deep venous thrombosis) Former smoker GERD (gastroesophageal reflux disease) history of blood clot Hypertension Hyperthyroidism Kidney stones Knee pain Limb weakness Limb weakness Migraines Osteoporosis Pulmonary embolism Shortness of breath Shoulder pain Thyroid disease Home Medications levothyroxine 50 mcg PO DAILY 12/19/13 [History Last Taken 06/08/17] alprazolam 1 mg PO TID PRN PRN 02/16/17 [History Last Taken 03/22/21 23:00] lidocaine 35 gm TOPICAL TID PRN 03/11/18 [History Last Taken Unknown] cholecalciferol (vitamin D3) 25 mcg (1,000 unit) capsule 1,000 unit PO DAILY 04/12/19 [History Last Taken Unknown] fluticasone propionate 44 mcg/actuation HFA aerosol inhaler 1 inh INHALATION BID 04/12/19 [History Last Taken Unknown] hydrocodone-acetaminophen 1 tab PO TID PRN 03/24/21 [History Last Taken Unknown] pregabalin 150 mg PO TID PRN 03/24/21 [History Last Taken Unknown] cefdinir 300 mg PO BID #14 cap 03/25/21 [Rx Last Taken Unknown] ondansetron HCl [Zofran] 4 mg PO Q8H PRN #20 tab 03/25/21 [Rx Last Taken Un known] phenazopyridine [Pyridium] 100 mg PO TID PRN 0 Days #7 tab 03/25/21 [Rx Last Taken Unknown] nitrofurantoin monohyd/m-cryst [Macrobid] 100 mg PO Q12H 7 Days #14 cap 09/10/21 [Rx Last Taken Unknown] ondansetron 4 mg PO Q6H PRN #14 tab 09/10/21 [Rx Last Taken Unknown] tolterodine 4 mg PO DAILY 09/10/21 [History Last Taken Unknown] Allergy/AdvReac Type Severity Reaction Status Date / Time Sulfa (Sulfonamide Allergy Hives Verified 09/10/21 13:33 Antibiotics) oxycodone [From Percocet] AdvReac Other Verified 09/10/21 13:33 Family History Other COPD (chronic obstructive pulmonary disease) Cancer Surgical History H/O elbow surgery H/O knee surgery H/O right mastectomy History of appendectomy History of gastric surgery History of hysterectomy with bilateral oophorectomy Social History Smoking Status: Former smoker alcohol intake: never ROS ROS ED Constitutional Constitutional ED: Reports systems reviewed and no addt'l complaints, except as documented; Denies body ache(s), change in weight or chills Eyes Eyes: Denies acute decrease in peripheral vision, change in vision, double vision or loss of vision ENT ENT ED: Reports none; Denies ear pain, lip swelling, loss taste/smell, neck pain, otalgia or sore throat Cardiovascular Cardiovascular: Reports none and chest pain; Denies abdominal pain, chest pain with activity, leg edema, lightheadedness, palpitations, rapid heart rate or syncope Respiratory/Chest Respiratory/Chest: Reports none; Denies change in mental status, dry cough, dyspnea, hemoptysis, shortness of breath at rest or shortness of breath with exertion Gastrointestinal Gastrointestinal: Reports none, abdominal pain, nausea and vomiting; Denies change in stool character, diarrhea, hematemesis, hematochezia, melena or rectal bleeding Genitourinary Genitourinary ED: Reports none, dysuria and urinary frequency; Denies abdominal discomfort, anuria, genital pain or polyuria Musculoskeletal Musculoskeletal: Reports none and other Details: Right arm pain and right rib pain ; Denies arthralgias, back pain, difficulty walking, extremity pain, muscle weakness or myalgias Integumentary Reports none; Denies abscess or rash Neurologic Neurologic: Reports none; Denies abnormal gait, confusion, focal weakness, frequent falls, headache(s), loss of vision, numbness, paresthesias, radicular pain, vertigo or weakness Psychiatric Psychiatric: Reports systems reviewed and no addt'l complaints, except as documented and none; Denies behavioral changes, confusion, difficulty concentrating, hallucinations, suicidal ideation, tactile hallucinations or visual hallucinations Endocrine Endocrinology: Denies none, cold intolerance, excessive sweating, fatigue or heat intolerance Hematologic/Lymphatic Hematologic/Lymphatic: Reports none; Denies anemia, easy bleeding or easy bruising Allergic/Immunologic Allergic/Immunologic ED: Denies as per HPI, none, lip swelling, mouth swelling, throat swelling, tongue swelling or hives EXAM Physical Exam Const Vital Signs: 09/10/21 12:16 09/10/21 12:18 09/10/21 14:16 Temperature 96.9 F L 96.9 F L Temperature Source Temporal Temporal Pulse Rate 95 95 82 Respiratory Rate 18 18 18 Blood Pressure 135/67 H 135/67 H 133/68 H Blood Pressure Mean 89 89 89 Pulse Ox 95 95 96 Oxygen Delivery Method Room Air Room Air Room Air 09/10/21 14:18 Temperature 98 F Temperature Source Temporal Pulse Rate 80 Respiratory Rate 16 Blood Pressure 133/68 H Blood Pressure Mean 89 Pulse Ox 97 Oxygen Delivery Method Room Air Positive well nourished and well developed General Appearance ED: well developed and NAD HEENT Reports TM's clear and moist mucous membranes normocephalic and atraumatic; Negative for trauma or tenderness Tympanic Membrane ED: Yes TM's clear Eyes PERRL and EOMs intact bilaterally General Eye ED: Negative for pale conjunctiva or scleral icterus Neck no lymphadenopathy, supple and no JVD General: Negative for tenderness Chest Wall palpation of chest normal Chest Narrative: Over the right chest wall in the midaxillary line. There is no ecchymosis or bruising noted. No crepitus or subcu edema noted. Chest: Negative for tenderness Resp normal respiratory effort and clear to auscultation bilaterally Effort and Inspection: Negative for respiratory distress or pain with movement Auscultation: Negative for rhonchi, wheezes or diminished lung sounds Cardio regular rate, regular rhythm, S1 normal heart sound, S2 normal heart sound and no murmurs Peripheral Pulses: pulses 2+ throughout GI normal to inspection, nondistended, normoactive bowel sounds, soft to palpation, non-distended and no masses GI Narrative: Mild suprapubic tenderness on palpation. There is no rebound, rigidity, or peritoneal signs. Back/Spine no thoracic nor lumbar tenderness Back/Spine Narrative: Patient has CVA tenderness on the left. General Back: CVA tenderness Extremity Extremity Narrative: Patient's with some diffuse tenderness over the mid humerus. No ecchymosis or bruising. No obvious deformity. She is neurovascular intact distally. General Extremety ED: Negative for edema General Extremity: Negative for edema Neuro oriented x3, CN's II-XII intact bilaterally, no sensory deficits noted and gait normal Sensorium / Orientation: awake, alert, oriented to person, oriented to place and oriented to time Motor Exam: strength 5/5 throughout and strength abnormal Psych mental status grossly normal Skin no rashes or lesions noted and no wounds MDM MDM MDM Narrative Medical decision making narrative: IV line established on arrival. Patient was medicated with morphine and Zofran. Patient was ordered a gram of Rocephin IV. She did feel improved after treatment. CT showed right-sided hydroureter and hydronephrosis with etiology uncertain. My suspicion is that she may have pyelonephritis. Recommended admission for IV antibiotics and pain management. Patient states that she has a specialist that she sees but has helped her with her bladder in the past and is scheduled to see this physician in about a week or so. 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 Patient states that she has pain meds at home for her chronic back pain that have been helping with her pain. Her labs and vital signs otherwise are unremarkable. Patient is advised to return to the ER if she continues to vomit and worsening pain. At this point I do not feel she septic. Lab Data Attestation: I reviewed the patient's lab results. Labs: Laboratory Results - last 24 hr 09/10/21 09/10/21 09/10/21 14:20 14:20 14:20 WBC 6.1 RBC 4.30 Hgb 12.4 Hct 36.1 L MCV 84.0 MCH 28.8 MCHC 34.3 RDW Std Deviation 38.8 RDW Coeff of Mahi 12.8 Plt Count 154 MPV 9.8 Immature Gran % (Auto) 0.300 Neut % (Auto) 89.2 H Lymph % (Auto) 4.4 L [place] % (Auto) 3.8 Eos % (Auto) 1.3 Baso % (Auto) 1.0 Absolute Neuts (auto) 5.4 Absolute Lymphs (auto) 0.27 L Nucleated RBC % 0 Differential Comment SCANNED Sodium 134 L Potassium 4.0 Chloride 97 L Carbon Dioxide 28.0 Anion Gap 9 BUN 7 Creatinine 0.85 Estim Creat Clear Calc 41.16 Est GFR (MDRD) Af Amer 83 Est GFR (MDRD) Non-Af 68 BUN/Creatinine Ratio 8.2 L Glucose 103 Lactic Acid 1.5 Calcium 9.1 Urine Color Urine Clarity Urine pH Ur Specific [place] Urine Protein Urine Glucose (UA) Urine Ketones Urine Occult Blood Urine Nitrite Urine Bilirubin Urine Urobilinogen Ur Leukocyte Esterase Urine RBC Urine WBC Ur Squamous Epith Cells Urine Bacteria Urine Mucus 09/10/21 16:10 WBC RBC Hgb Hct MCV MCH MCHC RDW Std Deviation RDW Coeff of Mahi Plt Count MPV Immature Gran % (Auto) Neut % (Auto) Lymph % (Auto) [place] % (Auto) Eos % (Auto) Baso % (Auto) Absolute Neuts (auto) Absolute Lymphs (auto) Nucleated RBC % Differential Comment Sodium Potassium Chloride Carbon Dioxide Anion Gap BUN Creatinine Estim Creat Clear Calc Est GFR (MDRD) Af Amer Est GFR (MDRD) Non-Af BUN/Creatinine Ratio Glucose Lactic Acid Calcium Urine Color Yellow Urine Clarity Clear Urine pH 7.0 Ur Specific [place] 1.005 Urine Protein Negative Urine Glucose (UA) Normal Urine Ketones Negative Urine Occult Blood 10 H Urine Nitrite Positive H Urine Bilirubin Negative Urine Urobilinogen 1 H Ur Leukocyte Esterase 500 H Urine RBC 0-5 SEEN Urine WBC 25-50 SEEN Ur Squamous Epith Cells 0 SEEN Urine Bacteria 0 SEEN Urine Mucus 0 SEEN Radiography Diagnostic Testing: Clinical Impression(s) from Imaging Studies Humerus X-Ray 09/10/21 14:08 IMPRESSION: Normal x-ray examination of the humerus. Electronically Signed: Lawson Dias MD at 15:22 EST , Service support , Ribs w/Chest X-Ray 09/10/21 14:08 IMPRESSION: No demonstrated rib fracture. Electronically Signed: Abrahan Michael MD ([place]) at 15:17 EST , Service support , Abdomen/Pelvis CT 09/10/21 15:01 IMPRESSION: Right-sided hydronephrosis and hydroureter. There is hydroureter to the level of the crossing right iliac vessels. The right ureter distal to the crossing iliac vessels is not well seen and decompressed. Findings could be due to a stricture, compression by the iliac vessels, nonradiopaque stone, recently passed stone or simply not one visualized on this study. Other solid organs are unremarkable No free intraperitoneal fluid, air, or suspicious adenopathy Degenerative bony changes Electronically Signed: Lawson Dias MD at 15:56 EST , Service support , 2 view x-rays of the right humerus obtained interpreted by myself as no fractures. Radiology in agreement. 4 view x-rays of right ribs and chest x-ray obtained interpreted by myself as no fractures or pneumothorax. Radiology in agreement. Discharge Plan Triage Chief Complaint: Complaint ED Provider: Ranjit Salcido Dx/Rx/DC Orders Clinical Impression: Acute pyelonephritis Instructions: ED Pyelonephritis, Female (Adult) Prescriptions: New nitrofurantoin monohyd/m-cryst [Macrobid] 100 mg capsule 100 mg PO Q12H 7 Days Qty: 14 RF: 0 ondansetron 4 mg tablet,disintegrating 4 mg PO Q6H PRN (Reason: nausea and vomiting) Qty: 14 RF: 0 No Action Flovent HFA 44 mcg/actuation HFA aerosol inhaler 1 inh INHALATION BID RF: 0 cholecalciferol (vitamin D3) 1,000 unit capsule 1,000 unit capsule 1,000 unit PO DAILY RF: 0 levothyroxine 50 MCG tablet 50 mcg PO DAILY RF: 0 alprazolam 1 MG tablet 1 mg PO TID PRN PRN (Reason: Anxiety) RF: 0 lidocaine 35 GM ointment 35 gm topical TID PRN (Reason: Pain) RF: 0 hydrocodone-acetaminophen 10-325 mg tablet 1 tab PO TID PRN (Reason: Pain) RF: 0 pregabalin 150 mg capsule 150 mg PO TID PRN (Reason: Pain) RF: 0 ondansetron HCl [Zofran] 4 mg tablet 4 mg PO Q8H PRN (Reason: nausea and vomiting) Qty: 20 RF: 0 cefdinir 300 mg capsule 300 mg PO BID Qty: 14 RF: 0 phenazopyridine [Pyridium] 100 mg tablet 100 mg PO TID PRN (Reason: pain) 0 Days Qty: 7 RF: 0 tolterodine 4 mg capsule,extended release 24hr 4 mg PO DAILY RF: 0 Primary Care Provider: Ronaldo Ruiz Referrals: Ronaldo Ruiz DO [Primary Care Provider] - Activity Restrictions/Additional Instructions: See your urologist within next 3 to 5 days. Return if worsening pain, fever, vomiting, or conditions worsen anyway. Disposition Disposition: Home, Self Care
[2021-09-10 14:16] VITALS: BP 133/68; PULSE 82; RESP 18; O2SAT 96
[2021-09-10 14:18] VITALS: BP 133/68; PULSE 80; RESP 16; TEMP 36.6; O2SAT 97
[2021-09-10 14:28] LABS: Absolute Lymphocyte Count 0.27 X10^3/uL (0.83-4.51); Absolute Neutrophil Count 5.4 X10^3/uL (2.0-7.7); Basophil# 0.06 X10^3/uL; Eosinophil# 0.08 X10^3/uL; Eosinophils% 1.3 % (0-5); Hematocrit 36.1 % (37-47); Hemoglobin 12.4 g/dL (12.0-15.0); Lymphocyte # 0.27 X10^3/ul (0.83-4.51); Lymphocyte % 4.4 % (19-41); Mean Corp Hgb Conc 34.3 g/dL (32-36); Mean Corpuscular Hgb 28.8 pg (27.0-32.0); Mean Platelet Vol. 9.8 fl (6.2-12.0); Monocyte# 0.23 X10^3/uL; Monocyte% 3.8 % (0-10); NRBC Flagged by Analyzer 0 % (0-5); Neutrophil # 5.44 X10^3/uL (2.7-7.7); Neutrophil % 89.2 % (47-70); POSITIVE DIFFERENTIAL YES; Platelet Count 154 K/mm3 (150-450); RBC Distribution Width CV 12.8 % (11.6-14.6); RBC Distribution Width SD 38.8 fl (35.1-43.9); White Blood Count 6.1 K/mm3 (4.4-11.0)
[2021-09-10 14:29] LABS: Differential Indicated SCAN CRITERIA MET
[2021-09-10] MEDS: Ondansetron 4 MG/2 ML Vial IV (14:35)
[2021-09-10] MEDS: Morphine 4 MG/ML Syringe IV (14:35)
[2021-09-10] MEDS: 0.9% Normal Saline 1,000 ML 1000 ML IV (14:36)
[2021-09-10 14:40] LABS: Anion Gap 9 (5-15); BUN 7 mg/dL (7-18); BUN/Creat Ratio 8.2 RATIO (10-20); Calcium,Total 9.1 mg/dL (8.5-10.1); Chloride 97 mmol/L (98-107); Creatinine, Serum 0.85 mg/dL (0.55-1.02); EST Glomerular Filtration Rate 68 mL/min (>60); Est Glom Filt Rate - Afr Amer 83 mL/min (>60); Estimated Creatinine Clearance 41.16 ml/min; Glucose 103 mg/dL (74-106); Sodium Level 134 mmol/L (136-145)
[2021-09-10 14:55] LABS: Lactic Acid 1.5 mmol/L (0.4-1.9)
[2021-09-10 14:59] LABS: Differential Comment SCANNED
--- NOTE | 2021-09-10 15:01 | CT_ITS ---
STUDY: CT ABDOMEN AND PELVIS WITHOUT CONTRAST REASON FOR EXAM: Female, 76 years old. Flank pain RADIATION DOSAGE (If Supplied By Facility): CTDIvol = ( 9.54 ) mGy, DLP = ( 406.91 ) mGycm TECHNIQUE: Transaxial images were obtained from the dome of the diaphragm to the symphysis pubis without oral contrast, and without intravenous contrast. Sagittal and coronal images were reconstructed. Individualized dose optimization techniques were used for this CT. COMPARISON: None. FINDINGS: There are chronic interstitial fibrotic changes of the lung bases. The visualized portions of the heart are within normal limits. Normal liver. There is non-visualization of the gallbladder, which may be secondary to either contraction or a prior cholecystectomy. Normal spleen. Normal pancreas. Normal bilateral adrenal glands. There is right-sided hydronephrosis and hydroureter. The right ureter is dilated to the level of the crossing iliac vessel. There is no significant perinephric or periureteral inflammatory stranding. The right ureter distal to the crossing iliac vessels not well visualized. There is no clearly demonstrated obstructing stone within the right ureter. Left kidney is free of obstructive uropathy Normal visualized stomach. Normal small intestine. Normal colon. There is non-visualization of the appendix. There is diffuse atherosclerotic calcification of the abdominal aorta, without a demonstrated aneurysm. Normal inferior vena cava. Normal retroperitoneum. Normal urinary bladder. There is absence of the uterus consistent with a prior hysterectomy. There is a small umbilical hernia containing fat. There are diffuse degenerative changes of the visualized lumbar spine, and pelvis. There is a levoscoliosis. CT/Abdomen/Pelvis without Cont IMPRESSION: Right-sided hydronephrosis and hydroureter. There is hydroureter to the level of the crossing right iliac vessels. The right ureter distal to the crossing iliac vessels is not well seen and decompressed. Findings could be due to a stricture, compression by the iliac vessels, nonradiopaque stone, recently passed stone or simply not one visualized on this study. Other solid organs are unremarkable No free intraperitoneal fluid, air, or suspicious adenopathy Degenerative bony changes Electronically Signed: Lawson Dias MD at 15:56 EST , Service support ,
[2021-09-10 16:00] VITALS: PULSE 65; RESP 15; O2SAT 99
[2021-09-10 16:15] LABS: Bacteria 0 SEEN /hpf (None Seen); Mucous, Urine 0 SEEN /hpf (<or=2+); Squamous Epithelial Cells - UA 0 SEEN /hpf (5-10)
[2021-09-10 16:16] LABS: Color, Urine Yellow (Yellow); Glucose, Dipstick Normal (Normal); Ketone-Dipstick Negative (Negative); Leukocyte Esterase-Dipstick 500 /ul (Negative); Nitrite-Dipstick Positive (Negative); Occult Blood-Urine 10 /ul (Negative); Protein-Dipstick Negative (Negative); Specific Gravity, Urine 1.005 (1.002-1.030); Urine Bilirubin Dipstick Negative (Negative); Urine Clarity Clear (Clear); Urine Urobilinogen 1 mg/dl (Normal)
[2021-09-10 16:23] LABS: Red Blood Cells-Urine 0-5 SEEN /hpf (0-5); White Blood Cells 25-50 SEEN /hpf (0-5)
[2021-09-10] MEDS: Ceftriaxone 1 GM/50 ML BAG IV (17:04)
== END 2021-09-10 17:50 | disposition home or self-care (01) ==
PROVIDERS: Emergency Provider Emergency Medicine; PCP Family Medicine
DX: N10 Acute pyelonephritis (principal); M79.601 Pain in right arm; R07.81 Pleurodynia; W10.9XXA Fall (on) (from) unspecified stairs and steps, initial encounter; Y93.9 Activity, unspecified; Y92.9 Unspecified place or not applicable; I10 Essential (primary) hypertension; J44.9 Chronic obstructive pulmonary disease, unspecified; K21.9 Gastro-esophageal reflux disease without esophagitis; M19.90 Unspecified osteoarthritis, unspecified site; G89.29 Other chronic pain; G43.909 Migraine, unspecified, not intractable, without status migrainosus; E05.90 Thyrotoxicosis, unspecified without thyrotoxic crisis or storm; M81.0 Age-related osteoporosis without current pathological fracture; Z87.442 Personal history of urinary calculi; Z86.718 Personal history of other venous thrombosis and embolism; Z86.711 Personal history of pulmonary embolism; Z79.899 Other long term (current) drug therapy; Z87.891 Personal history of nicotine dependence
CPT/HCPCS: 71101; 73060; 74176; 80048; 81001; 83605; 85025; 87086; 87088; 87186; 96361; 96365; 96374; 96375; 99283; J2405

== ENCOUNTER 2021-10-08 13:48 | Emergency (ER) | payer MEDICARE, OTHER, SELFPAY ==
[2021-10-08 13:48] VITALS: BP 136/64; PULSE 81; RESP 16; TEMP 36.1; O2SAT 94; BMI 29.2
[2021-10-08 14:08] VITALS: BP 121/65; PULSE 76; RESP 10; RESP 9; O2SAT 87; O2SAT 96
--- NOTE | 2021-10-08 14:11 | CT_ITS ---
STUDY: CT BRAIN WITHOUT CONTRAST REASON FOR EXAM: Female, 76 years old. Altered mental status. RADIATION DOSAGE (If Supplied By Facility): CTDIvol = ( 44.99 ) mGy, DLP = ( 745.49 ) mGycm TECHNIQUE: Transaxial CT imaging of the brain was performed without administration of intravenous contrast material. Individualized dose optimization techniques were used for this CT. COMPARISON: Comparison is made with prior study dated 03/11/2018. FINDINGS: Normal soft tissue structures. Normal calvarium. There is mild cerebral atrophy with widening of the extra-axial spaces and ventricular dilatation. Normal white matter tracts of the cerebral hemispheres. Normal basal ganglia and thalami. Normal brainstem. There is mild cerebellar atrophy. There is no intracranial hemorrhage. There are no findings of an acute ischemic infarction. Normal visualized paranasal sinuses. CT/Brain/Head without Contrast IMPRESSION: Chronic involutional changes of the brain. Electronically Signed: Ananda Aguilar MD at 15:04 EST ,
--- NOTE | 2021-10-08 14:11 | EKG12_ITS ---
Test Reason : SOB Blood Pressure : / mmHG Vent. Rate : 069 BPM Atrial Rate : 069 BPM P-R Int : 158 ms QRS Dur : 088 ms QT Int : 410 ms P-R-T Axes : 024 -22 005 degrees QTc Int : 439 ms Normal sinus rhythm Normal ECG Confirmed by ADRIANA FRIEDMAN, PAULETTE ([id number]), state editor CHARITO CATALAN ([id number]) on 10/09/2021 9:22:44 AM Referred By: TALIB Confirmed By:PAULETTE WRIGHT MD
--- NOTE | 2021-10-08 14:15 | EDS_ITS ---
HPI History of Present Illness Chief Complaint: Weakness Informant: patient and spouse/S.O. Narrative Narrative: 76-year-old female presents to the emergency department chief complaint of being weak of tired. She states that this is been going on for a couple weeks and she notes that she has been getting confused particular at night and falling try to get back to bed. She states she falls asleep sitting on the toilet and on the couch very easily. She denies any significant injuries from these falls. She states that she saw her family doctor 1 week ago but they did not have any answers for her. She states that no testing has been done. Nothing in particular has changed today as compared to yesterday the day before to make her come to emergency. She notes a intermittent cough. No reported fevers but states that she feels warm all the time. No vomiting or diarrhea. No urinary symptoms. No chest pains. She states she wears home oxygen at night and sometimes despite being on 2 L she feels that its been blowing her head off. She notes bilateral leg swelling. She notes pain in the right shoulder but states that she has had problems with the shoulder since she had a mastectomy. She states that one of the falls did cause her to have pain in the shoulder. [facility] Medical History Arthritis Cancer Chronic pain COPD (chronic obstructive pulmonary disease) Difficulty balancing DVT (deep venous thrombosis) Former smoker Generalized weakness GERD (gastroesophageal reflux disease) history of blood clot Hypertension Hyperthyroidism Kidney stones Knee pain Limb weakness Limb weakness Migraines Osteoporosis Pulmonary embolism Severe sepsis Shortness of breath Shoulder pain Thyroid disease Urinary retention UTI (urinary tract infection) Home Medications levothyroxine 50 mcg PO DAILY 12/19/13 [History Last Taken 06/08/17] alprazolam 1 mg PO TID PRN PRN 02/16/17 [History Last Taken 03/22/21 23:00] lidocaine 35 gm TOPICAL TID PRN 03/11/18 [History Last Taken Unknown] cholecalciferol (vitamin D3) 25 mcg (1,000 unit) capsule 1,000 unit PO DAILY 04/12/19 [History Last Taken Unknown] fluticasone propionate 44 mcg/actuation HFA aerosol inhaler 1 inh INHALATION BID 04/12/19 [History Last Taken Unknown] hydrocodone-acetaminophen 1 tab PO TID PRN 03/24/21 [History Last Taken Unknown] pregabalin 150 mg PO TID PRN 03/24/21 [History Last Taken Unknown] ondansetron HCl [Zofran] 4 mg PO Q8H PRN #20 tab 03/25/21 [Rx Last Taken Unknown] Allergy/AdvReac Type Severity Reaction Status Date / Time Sulfa (Sulfonamide Allergy Hives Verified 10/08/21 13:50 Antibiotics) oxycodone [From Percocet] AdvReac Other Verified 10/08/21 13:50 Family History Other COPD (chronic obstructive pulmonary disease) Cancer Surgical History H/O elbow surgery H/O knee surgery H/O right mastectomy History of appendectomy History of cholecystectomy History of gastric surgery History of hysterectomy with bilateral oophorectomy Social History Smoking Status: Former smoker alcohol intake: never ROS ROS ED ROS Narrative Weakness and fatigue Constitutional Constitutional ED: Denies chills, fever(s) or weight loss Eyes Eyes: Denies change in vision or diplopia ENT ENT ED: Denies ear pain, rhinorrhea or sore throat Cardiovascular Cardiovascular: Denies chest pain, orthopnea, palpitations or racing heartbeat Respiratory/Chest Respiratory/Chest: Reports cough; Denies dyspnea or orthopnea Gastrointestinal Gastrointestinal: Denies abdominal pain, diarrhea, nausea or vomiting Genitourinary Genitourinary ED: Denies dysuria, hematuria or urinary frequency Musculoskeletal Musculoskeletal: Reports other Details: Chronic right shoulder pain ; Denies arthralgias or myalgias Integumentary Denies abscess or rash Neurologic Neurologic: Denies headache(s) or weakness Psychiatric Psychiatric: Denies anxiety, depression, suicidal ideation or suicidal thoughts Endocrine Endocrinology: Denies polydipsia, polyphagia or polyuria Allergic/Immunologic Allergic/Immunologic ED: Denies mouth swelling, tongue swelling or urticaria EXAM Physical Exam Const Vital Signs: 10/08/21 13:48 10/08/21 13:58 10/08/21 14:08 Temperature 96.9 F L Temperature Source Temporal Pulse Rate 81 76 Respiratory Rate 16 10 L Respiratory Effort Normal Respiratory Pattern Normal Blood Pressure 136/64 H 121/65 H Blood Pressure Mean 88 83 Pulse Ox 94 96 Oxygen Delivery Method Room Air Nasal Cannula Oxygen Flow Rate (L/min) 2 10/08/21 14:24 10/08/21 16:01 10/08/21 18:22 Temperature Temperature Source Pulse Rate 70 67 Respiratory Rate 11 L 18 Respiratory Effort Respiratory Pattern Blood Pressure 126/71 H 125/76 H Blood Pressure Mean 89 92 Pulse Ox 96 100 100 Oxygen Delivery Method Room Air Nasal Cannula Room Air Oxygen Flow Rate (L/min) 2 2 Positive well nourished and well developed General Appearance ED: well developed HEENT Reports normocephalic, head/scalp atraumatic, TM's clear and moist mucous membranes Negative for trauma Tympanic Membrane ED: Yes TM's clear Eyes PERRL and EOMs intact bilaterally Neck no lymphadenopathy, supple and no JVD Resp normal respiratory effort and clear to auscultation bilaterally Cardio regular rate, regular rhythm and no murmurs GI normal to inspection, nondistended, normoactive bowel sounds and non-tender Palpation: soft Back/Spine no CVA tenderness and normal ROM Extremity Extremity Narrative: Painful range of motion of the right shoulder General Extremety ED: Negative for edema General Extremity: Negative for edema Neuro oriented x3 and CN's II-XII intact bilaterally Sensorium / Orientation: alert Motor Exam: strength 5/5 throughout Psych mental status grossly normal Mood & Affect: Negative for depressed or tearful Skin no rashes or lesions noted and no wounds MDM MDM MDM Narrative Medical decision making narrative: Blood work shows a white count of 4.4 hemoglobin 10.9. Normal coags. Electrolytes with a sodium of 132. Calcium 8.1. Normal lactic acid. TSH is normal. Troponin is normal beta natruretic p eptide is normal. My interpretation of the chest x-ray is no acute process. CT the brain was negative. Influenza and Covid testing is negative. Aafter several hours the patient was able to provide a urine specimen. Urinalysis is contaminated but no overt infection. I explained to the patient that I am not seeing anything emergent but she would benefit from further evaluation most likely through primary care. She now states her biggest concern is that her legs feel staff. I advised her that if she has been doing nothing much but sitting around and sleeping that she would feel stiff she then tells me that she has been doing squats and climbing the stairs I suggested maybe she needs a physical therapy appointment to ensure that she is doing the right things. She did not feel strongly that this was the right answer. She states that sometimes when she sleeps her arms twitch and wonders what type of doctor she should go see for twitching arms. I suggested perhaps a neurologist. Lab Data Attestation: I reviewed the patient's lab results. Labs: Laboratory Results - last 24 hr 10/08/21 10/08/21 10/08/21 14:30 14:30 14:30 WBC 4.4 RBC 3.79 L Hgb 10.9 L Hct 33.7 L MCV 88.9 MCH 28.8 MCHC 32.3 RDW Std Deviation 42.3 RDW Coeff of Mahi 13.1 Plt Count 197 MPV 10.1 Immature Gran % (Auto) 0.200 Neut % (Auto) 55.4 Lymph % (Auto) 24.9 Stokes % (Auto) 9.2 Eos % (Auto) 8.9 H Baso % (Auto) 1.4 H Absolute Neuts (auto) 2.4 Absolute Lymphs (auto) 1.09 Nucleated RBC % 0 PT 13.1 INR 1.1 APTT 33.5 Sodium 132 L Potassium 3.9 Chloride 100 Carbon Dioxide 29.0 Anion Gap 3 L BUN 8 Creatinine 0.78 Estim Creat Clear Calc 34.99 Est GFR (MDRD) Af Amer 91 Est GFR (MDRD) Non-Af 75 BUN/Creatinine Ratio 10.2 Glucose 95 Lactic Acid Calcium 8.1 L Total Bilirubin 0.40 AST 26 ALT 22 Alkaline Phosphatase 61 Troponin I High Sens 12 B-Natriuretic Peptide Total Protein 7.9 Albumin 2.8 L Globulin 5.1 H Albumin/Globulin Ratio 0.5 L Lipase < 10 L TSH Urine Color Urine Clarity Urine pH Ur Specific [place] Urine Protein Urine Glucose (UA) Urine Ketones Urine Occult Blood Urine Nitrite Urine Bilirubin Urine Urobilinogen Ur Leukocyte Esterase Urine RBC Urine WBC Ur Squamous Epith Cells Urine Bacteria Urine Mucus 10/08/21 10/08/21 10/08/21 14:30 14:30 14:30 WBC RBC Hgb Hct MCV MCH MCHC RDW Std Deviation RDW Coeff of Mahi Plt Count MPV Immature Gran % (Auto) Neut % (Auto) Lymph % (Auto) Stokes % (Auto) Eos % (Auto) Baso % (Auto) Absolute Neuts (auto) Absolute Lymphs (auto) Nucleated RBC % PT INR APTT Sodium Potassium Chloride Carbon Dioxide Anion Gap BUN Creatinine Estim Creat Clear Calc Est GFR (MDRD) Af Amer Est GFR (MDRD) Non-Af BUN/Creatinine Ratio Glucose Lactic Acid 1.6 Calcium Total Bilirubin AST ALT Alkaline Phosphatase Troponin I High Sens B-Natriuretic Peptide 76.4 Total Protein Albumin Globulin Albumin/Globulin Ratio Lipase TSH 2.20 Urine Color Urine Clarity Urine pH Ur Specific [place] Urine Protein Urine Glucose (UA) Urine Ketones Urine Occult Blood Urine Nitrite Urine Bilirubin Urine Urobilinogen Ur Leukocyte Esterase Urine RBC Urine WBC Ur Squamous Epith Cells Urine Bacteria Urine Mucus 10/08/21 17:23 WBC RBC Hgb Hct MCV MCH MCHC RDW Std Deviation RDW Coeff of Mahi Plt Count MPV Immature Gran % (Auto) Neut % (Auto) Lymph % (Auto) Stokes % (Auto) Eos % (Auto) Baso % (Auto) Absolute Neuts (auto) Absolute Lymphs (auto) Nucleated RBC % PT INR APTT Sodium Potassium Chloride Carbon Dioxide Anion Gap BUN Creatinine Estim Creat Clear Calc Est GFR (MDRD) Af Amer Est GFR (MDRD) Non-Af BUN/Creatinine Ratio Glucose Lactic Acid Calcium Total Bilirubin AST ALT Alkaline Phosphatase Troponin I High Sens B-Natriuretic Peptide Total Protein Albumin Globulin Albumin/Globulin Ratio Lipase TSH Urine Color Yellow Urine Clarity Clear Urine pH 5.0 Ur Specific [place] 1.015 Urine Protein Negative Urine Glucose (UA) Normal Urine Ketones Negative Urine Occult Blood Negative Urine Nitrite Negative Urine Bilirubin Negative Urine Urobilinogen Normal Ur Leukocyte Esterase 500 H Urine RBC 0 SEEN Urine WBC 10-25 SEEN Ur Squamous Epith Cells 10-25 SEEN Urine Bacteria 1+ Urine Mucus 0 SEEN Radiography Diagnostic Testing: Clinical Impression(s) from Imaging Studies Brain CT 10/08/21 14:11 IMPRESSION: Chronic involutional changes of the brain. Electronically Signed: Ananda Aguilar MD at 15:04 EST , Chest X-Ray 10/08/21 14:40 IMPRESSION: Borderline cardiomegaly. Electronically Signed: Ananda Aguilar MD at 15:05 EST , Shoulder X-Ray 10/08/21 14:40 IMPRESSION: Normal x-ray examination of the shoulder. Electronically Signed: Ananda Aguilar MD at 15:06 EST , EKG Initial EKG: Attestation: I personally reviewed and interpreted this EKG as follows: Comments: Normal sinus rhythm ventricular rate of 69 bpm. Discharge Plan Triage Chief Complaint: Weakness ED Provider: Ted Orellana Dx/Rx/DC Orders Clinical Impression: Weakness Instructions: ED Weakness (Uncertain Cause) Prescriptions: No Action Flovent HFA 44 mcg/actuation HFA aerosol inhaler 1 inh INHALATION BID RF: 0 cholecalciferol (vitamin D3) 1,000 unit capsule 1,000 unit capsule 1,000 unit PO DAILY RF: 0 levothyroxine 50 MCG tablet 50 mcg PO DAILY RF: 0 alprazolam 1 MG tablet 1 mg PO TID PRN PRN (Reason: Anxiety) RF: 0 lidocaine 35 GM ointment 35 gm topical TID PRN (Reason: Pain) RF: 0 hydrocodone-acetaminophen 10-325 mg tablet 1 tab PO TID PRN (Reason: Pain) RF: 0 pregabalin 150 mg capsule 150 mg PO TID PRN (Reason: Pain) RF: 0 ondansetron HCl [Zofran] 4 mg tablet 4 mg PO Q8H PRN (Reason: nausea and vomiting) Qty: 20 RF: 0 Primary Care Provider: Ronaldo Ruiz Referrals: Ronaldo Ruiz, [Primary Care Provider] - As soon as possible Disposition Disposition: Home, Self Care
[2021-10-08 14:24] VITALS: O2SAT 96
--- NOTE | 2021-10-08 14:40 | RAD_ITS ---
STUDY: X-RAY CHEST REASON FOR EXAM: Female, 76 years old. Cough TECHNIQUE: Single AP portable view of the chest. COMPARISON: Comparison is made with prior study dated 03/23/2021. FINDINGS: EKG electrodes are seen. Surgical clips are seen in the right axillary region. The lungs are clear and expanded. There is no demonstrated pleural abnormality. There is borderline cardiomegaly. Normal mediastinum and tres. Normal visualized pulmonary arteries. Normal visualized aortic arch and descending thoracic aorta. There are diffuse degenerative changes of the visualized thoracic spine. Mild dextroscoliosis Normal visualized ribs, clavicles, and shoulders. There is no demonstrated abnormality of the visualized soft tissue structures of the upper abdomen. RAD/Chest 1 View (Portable) IMPRESSION: Borderline cardiomegaly. Electronically Signed: Ananda Aguilar MD at 15:05 EST ,
--- NOTE | 2021-10-08 14:40 | RAD_ITS ---
STUDY: X-RAY - RIGHT SHOULDER REASON FOR EXAM: Female, 76 years old. Pain TECHNIQUE: 2 view(s) of the shoulder. COMPARISON: None. FINDINGS: Normal glenohumeral articulation. Normal acromioclavicular joint. Normal acromion. Normal humeral head and visualized proximal humerus. The soft tissue structures are unremarkable. Normal visualized pulmonary apex. RAD/Shoulder min 2 Views IMPRESSION: Normal x-ray examination of the shoulder. Electronically Signed: Ananda Aguilar MD at 15:06 EST ,
[2021-10-08 14:41] LABS: Absolute Lymphocyte Count 1.09 X10^3/uL (0.83-4.51); Absolute Neutrophil Count 2.4 X10^3/uL (2.0-7.7); Basophil# 0.06 X10^3/uL; Basophil% 1.4 % (0-1); Eosinophil# 0.39 X10^3/uL; Eosinophils% 8.9 % (0-5); Hematocrit 33.7 % (37-47); Hemoglobin 10.9 g/dL (12.0-15.0); Lymphocyte # 1.09 X10^3/ul (0.83-4.51); Lymphocyte % 24.9 % (19-41); Mean Corp Hgb Conc 32.3 g/dL (32-36); Mean Corpuscular Hgb 28.8 pg (27.0-32.0); Mean Corpuscular Volume 88.9 fL (81-99); Mean Platelet Vol. 10.1 fl (6.2-12.0); Monocyte% 9.2 % (0-10); NRBC Flagged by Analyzer 0 % (0-5); Neutrophil # 2.42 X10^3/uL (2.7-7.7); Neutrophil % 55.4 % (47-70); Platelet Count 197 K/mm3 (150-450); RBC Distribution Width CV 13.1 % (11.6-14.6); RBC Distribution Width SD 42.3 fl (35.1-43.9); Red Blood Count 3.79 M/mm3 (4.2-5.4); White Blood Count 4.4 K/mm3 (4.4-11.0)
[2021-10-08 14:53] LABS: International Normalized Ratio 1.1; Prothrombin Time (Protime)PT. 13.1 SECONDS (11.7-14.9)
[2021-10-08 14:54] LABS: Partial Thromboplast Time 33.5 Seconds (24.1-36.2)
[2021-10-08 15:00] LABS: ALB/GLOB Ratio 0.5 RATIO (0.9-2.4); AST(SGOT) 26 U/L (15-37); Alanine Aminotransfer ALT/SGPT 22 U/L (13-56); Albumin, Serum 2.8 g/dL (3.2-5.0); Alkaline Phosphatase 61 U/L (45-117); Anion Gap 3 (5-15); BUN 8 mg/dL (7-18); BUN/Creat Ratio 10.2 RATIO (10-20); Calcium,Total 8.1 mg/dL (8.5-10.1); Chloride 100 mmol/L (98-107); Creatinine, Serum 0.78 mg/dL (0.55-1.02); EST Glomerular Filtration Rate 75 mL/min (>60); Est Glom Filt Rate - Afr Amer 91 mL/min (>60); Estimated Creatinine Clearance 34.99 ml/min; Globulin 5.1 g/dL (2.2-4.2); Glucose 95 mg/dL (74-106); Lactic Acid 1.6 mmol/L (0.4-1.9); Lipase < 10 U/L (73-393); Potassium 3.9 mmol/L (3.5-5.1); Protein, Total 7.9 g/dL (6.4-8.2); Sodium Level 132 mmol/L (136-145); Troponin-I HS 12 pg/mL (3.0-54.0)
[2021-10-08 15:23] LABS: BNP,B-Type NATRIURETIC PEPTIDE 76.4 pg/mL (0-100)
[2021-10-08 16:01] VITALS: BP 126/71; PULSE 70; RESP 11; O2SAT 100
[2021-10-08 17:28] LABS: Mucous, Urine 0 SEEN /hpf (<or=2+); Red Blood Cells-Urine 0 SEEN /hpf (0-5)
[2021-10-08 17:29] LABS: Color, Urine Yellow (Yellow); Glucose, Dipstick Normal (Normal); Ketone-Dipstick Negative (Negative); Leukocyte Esterase-Dipstick 500 /ul (Negative); Nitrite-Dipstick Negative (Negative); Occult Blood-Urine Negative /ul (Negative); Protein-Dipstick Negative (Negative); Specific Gravity, Urine 1.015 (1.002-1.030); Urine Bilirubin Dipstick Negative (Negative); Urine Clarity Clear (Clear); Urine Urobilinogen Normal (Normal)
[2021-10-08 17:48] LABS: Bacteria 1+ /hpf (None Seen); Squamous Epithelial Cells - UA 10-25 SEEN /hpf (5-10); White Blood Cells 10-25 SEEN /hpf (0-5)
[2021-10-08 18:22] VITALS: BP 125/76; PULSE 67; RESP 18; O2SAT 100
== END 2021-10-08 18:43 | disposition home or self-care (01) ==
PROVIDERS: Emergency Provider Emergency Medicine; PCP Family Medicine; Visit Provider Emergency Medicine
DX: R53.1 Weakness (principal); J44.9 Chronic obstructive pulmonary disease, unspecified; M25.511 Pain in right shoulder; M79.89 Other specified soft tissue disorders; I10 Essential (primary) hypertension; M19.90 Unspecified osteoarthritis, unspecified site; K21.9 Gastro-esophageal reflux disease without esophagitis; E05.90 Thyrotoxicosis, unspecified without thyrotoxic crisis or storm; M81.0 Age-related osteoporosis without current pathological fracture; R29.6 Repeated falls; Z79.899 Other long term (current) drug therapy; Z86.711 Personal history of pulmonary embolism; Z86.718 Personal history of other venous thrombosis and embolism; Z87.891 Personal history of nicotine dependence
CPT/HCPCS: 70450; 71045; 73030; 80053; 81001; 83605; 83690; 83880; 84443; 84484; 85025; 85610; 85730; 87426; 87804; 93005; 99284

== ENCOUNTER 2021-12-04 16:14 | Outpatient (CLI) | payer MEDICARE, OTHER, SELFPAY | END 2021-12-04 23:59 | disposition home or self-care (01) | LOC: LAB 16:16 → LABSPEC 16:19 | PROVIDERS: PCP Family Medicine; Visit Provider Internal Medicine Pulmonary Disease | DX: J47.9 Bronchiectasis, uncomplicated (principal) | CPT/HCPCS: 87070; 87205 ==

== ENCOUNTER → 2022-02-06 | Outpatient (CLI) | payer MEDICARE, OTHER, SELFPAY ==
[2022-02-06 12:35] LABS: Erythrocyte Sedimentation Rate 23 mm/hr (0-30)
[2022-02-06 12:36] LABS: Absolute Neutrophil Count 4.9 X10^3/uL (2.0-7.7); Basophil# 0.01 X10^3/uL; Basophil% 0.1 % (0-1); Eosinophil# 0.01 X10^3/uL; Eosinophils% 0.1 % (0-5); Hematocrit 32.2 % (37-47); Hemoglobin 10.8 g/dL (12.0-15.0); Lymphocyte % 19.3 % (19-41); Mean Corp Hgb Conc 33.5 g/dL (32-36); Mean Corpuscular Hgb 28.8 pg (27.0-32.0); Mean Corpuscular Volume 85.9 fL (81-99); Mean Platelet Vol. 10.1 fl (6.2-12.0); Monocyte# 0.45 X10^3/uL; Monocyte% 6.7 % (0-10); NRBC Flagged by Analyzer 0 % (0-5); Neutrophil # 4.93 X10^3/uL (2.7-7.7); Neutrophil % 73.1 % (47-70); Platelet Count 258 K/mm3 (150-450); RBC Distribution Width CV 12.6 % (11.6-14.6); RBC Distribution Width SD 39.2 fl (35.1-43.9); Red Blood Count 3.75 M/mm3 (4.2-5.4); White Blood Count 6.8 K/mm3 (4.4-11.0)
[2022-02-06 12:59] LABS: BNP,B-Type NATRIURETIC PEPTIDE 208.6 pg/mL (0-100)
[2022-02-06 13:11] LABS: AST(SGOT) 23 U/L (15-37); Alanine Aminotransfer ALT/SGPT 23 U/L (13-56); Albumin, Serum 3.5 g/dL (3.2-5.0); Alkaline Phosphatase 51 U/L (45-117); Bilirubin, Direct 0.11 mg/dL (0.00-0.30); CRP < 2.90 mg/L (0.0-3.0); Globulin 5.4 g/dL (2.2-4.2); Protein, Total 8.9 g/dL (6.4-8.2)
[2022-02-06 14:08] LABS: Rheumatoid Factor < 10.0 IU/mL (<15)
[2022-02-07 17:07] LABS: Anti-Scleroderma-70 AB 1.5 AI (0.0-0.9); RNP Ab 0.3 AI (0.0-0.9)
[2022-02-07 20:46] LABS: ANTINUCLEAR ANTIBODIES DIRECT Positive (Negative); Anti-dsDNA Ab <1 IU/mL (0-9)
[2022-02-11 16:08] LABS: Angiotensin Convert Enzyme 50 U/L (14-82); Cytoplasmic Ab (C-ANCA) <1:20 titer (Neg:<1:20)
[2022-02-12 09:41] LABS: Anti-Smooth Muscle ABS 51 Units (0-19); CCP IgG Antibodies 4 units (0-19); Perinuclear Ab (P-ANCA) <1:20 titer (Neg:<1:20)
== END | disposition home or self-care (01) ==
PROVIDERS: PCP Family Medicine; Referring Provider Internal Medicine Pulmonary Disease; Visit Provider Internal Medicine Pulmonary Disease
DX: J84.10 Pulmonary fibrosis, unspecified (principal)
CPT/HCPCS: 36415; 80076; 82164; 83516; 83880; 85025; 85652; 86038; 86140; 86200; 86225; 86235; 86256; 86431

== ENCOUNTER → 2022-02-17 | Outpatient (CLI) | payer MEDICARE, OTHER, SELFPAY ==
[2022-02-17 13:32] LABS: Color, Urine Yellow (Yellow); Glucose, Dipstick Normal (Normal); Ketone-Dipstick Negative (Negative); Leukocyte Esterase-Dipstick 500 /ul (Negative); Nitrite-Dipstick Negative (Negative); Occult Blood-Urine 10 /ul (Negative); Protein-Dipstick Negative (Negative); Urine Bilirubin Dipstick Negative (Negative); Urine Clarity Clear (Clear); Urine Urobilinogen Normal (Normal)
== END | disposition home or self-care (01) ==
PROVIDERS: PCP Family Medicine; Referring Provider Internal Medicine Pulmonary Disease; Visit Provider Internal Medicine Pulmonary Disease
DX: J84.10 Pulmonary fibrosis, unspecified (principal)
CPT/HCPCS: 36415; 80053; 81002; 82607; 82728; 82784; 83540; 83550; 84165; 85025; 86334

== ENCOUNTER → 2022-02-18 | Outpatient (CLI) | payer MEDICARE, OTHER, SELFPAY ==
--- NOTE | 2022-02-18 08:34 | NM_ITS ---
CLINICAL: Female, 76 years old. Recurrent triple negative breast cancer staging -- food feels like it turns into lump WHOLE BODY NUCLEAR BONE SCAN TECHNIQUE: Following the IV administration of 25.7 mCi of Tc MDP, whole body bone imaging was performed with a gamma camera following a three hour delay. COMPARISON STUDIES : NM - None. CR - Not available for review at this time. CT - Not available for review at this time. MR - Not available for review at this time. US - Not available for review at this time. FINDINGS: There is a normal concentration of radiopharmaceutical throughout the axial and appendicular skeletal system without either a focal decrease or increase in uptake. Levoscoliosis of the lumbar spine. Evidence of prior right total knee replacement. NM/Bone Scan Whole Body IMPRESSION: Mild levoscoliosis of the lumbar spine. Prior right total knee replacement. No evidence of metastatic disease. Electronically Signed: Ananda Aguilar MD at 11:09 EDT ,
== END | disposition home or self-care (01) ==
LOC: NM 08:32
PROVIDERS: PCP Family Medicine; Visit Provider Student in an Organized Health Care Education/Training Program
DX: C50.911 Malignant neoplasm of unspecified site of right female breast (principal)
CPT/HCPCS: 78306; A9503

== ENCOUNTER → 2022-02-20 | Outpatient (CLI) | payer MEDICARE, OTHER, SELFPAY ==
--- NOTE | 2022-02-20 12:59 | CT_ITS ---
STUDY: CT Abdomen And Pelvis W/ Contrast Injection 02/20/2022 9:57 PM REASON FOR EXAM: Female, 76 years old. Abdominal pain recurrent [place] breast cancer staging Individualized dose optimization techniques were used for this CT. COMPARISON: Sep 10 2021 3:07pm TECHNIQUE: CT Abdomen And Pelvis W/ Contrast Injection IV 100mL [id number] FINDINGS: There are atherosclerotic calcifications of visualized coronary arteries. Right mastectomy changes. Gluteal injection granulomas. There is intrahepatic ductal dilation. There is non-visualization of the gallbladder, which may be secondary to either contraction or a prior cholecystectomy. There is dilation of the common bile duct. A common bile duct stone is not seen. The CBD diameter is 6.4 mm. Normal spleen. There is diffuse atrophy of the pancreas. Normal bilateral adrenal glands. No acute findings of the right kidney. No acute findings of the left kidney. Normal visualized stomach. Normal small intestine. There is wall thickening of the distal colon. There is also questionable inflammation around the colon. This can suggest a colitis. This can also suggest incomplete distension of the colon. There is non-visualization of the appendix. There are calcifications of the abdominal aorta. This is consistent for atherosclerotic disease. There is NO abdominal aortic aneurysm. Vascular workup can be obtained based on clinical correlation. Normal inferior vena cava. Subcentimeter mesenteric lymph nodes. Normal urinary bladder. There is absence of the uterus consistent with a prior hysterectomy. There is an umbilical hernia containing fat. There are diffuse degenerative changes of the visualized lumbar spine. Lumbar spinal fixation hardware noted. Laminectomy changes. Grade 1 anterolisthesis of L4 on L5. There is bilateral neural foraminal stenosis at L4-5 and L5-S1. Stable T7 compression deformity. CT/Abdomen/Pelvis WITH Contrast IMPRESSION: (NOT LISTED IN ORDER OF SIGNIFICANCE) There is wall thickening of the distal colon. There is also questionable inflammation around the colon. This can suggest a colitis. This can also suggest incomplete distension of the colon. Other findings as above. Electronically Signed: Crow Main MD at 22:00 EDT ,
== END | disposition home or self-care (01) ==
LOC: CT 12:58
PROVIDERS: PCP Family Medicine; Referring Provider Student in an Organized Health Care Education/Training Program; Visit Provider Student in an Organized Health Care Education/Training Program
DX: C50.911 Malignant neoplasm of unspecified site of right female breast (principal)
CPT/HCPCS: 74177; Q9967

== ENCOUNTER 2022-03-09 22:39 | Emergency (ER) | payer MEDICARE, OTHER, SELFPAY ==
[2022-03-09 22:39] VITALS: BP 158/72; PULSE 78; RESP 16; TEMP 36.9; O2SAT 98; BMI 30.2
--- NOTE | 2022-03-09 22:57 | RAD_ITS ---
STUDY: X-RAY - PELVIS AND LEFT HIP REASON FOR EXAM: Female, 76 years old. fall/injury TECHNIQUE: 3 views of the pelvis and hip. COMPARISON: Abdomen pelvis CT of 02/20/2022.. FINDINGS: There is a normal bowel gas pattern. Calcified phleboliths noted within the pelvis. Normal bilateral iliac wings, sacroiliac joints and visualized sacrum. Normal bilateral superior and inferior pubic rami. Normal pubic symphysis. Normal bilateral ischial tuberosities. Previous L5/S1 fusion again demonstrated with pedicle screws and rods in place. Degenerative disc space narrowing with vacuum disc phenomenon is noted at the L4/5 level. Normal visualized femoral head. Normal acetabulum. Normal hip joint. RAD/HIP, UNI W/ Pelvis 2-3 Views IMPRESSION: No acute fracture or dislocation. Electronically Signed: Martin Albarran MD at 23:55 EDT ,
--- NOTE | 2022-03-09 22:57 | RAD_ITS ---
STUDY: X-RAY - LEFT SHOULDER REASON FOR EXAM: Female, 76 years old. fall/injury TECHNIQUE: 4 view(s) of the shoulder. COMPARISON: Chest radiograph of 6 10/08/2021.. FINDINGS: Normal glenohumeral articulation. No AC joint widening.. Normal acromion. Normal humeral head and visualized proximal humerus. A small ovoid amorphous soft tissue calcification noted adjacent to the superolateral aspect of the humeral head indicating calcific tendinitis/bursitis. Mottled soft tissue calcification noted superior to the AC joint, most likely due to old trauma. Normal visualized pulmonary apex. Visualized left upper ribs are intact. RAD/Shoulder min 2 Views IMPRESSION: No acute fracture or dislocation. Calcific tendinitis/bursitis of the left shoulder. Electronically Signed: Martin Albarran MD at 23:57 EDT ,
--- NOTE | 2022-03-09 23:00 | EX.ED.DYSGE1 ---
HPI History of Present Illness Chief Complaint: Complaint Informant: patient Onset/Context/Timing Onset: Days (4) Context: Gradual Onset Timing: Continuous Quality: burning Location: urethra Current Severity: Moderate Maximum Severity: Moderate Worsened by: urinating Relieved by: nothing Associated Symptoms Associated Symptoms: lower abd pain Narrative Narrative: Symptoms of urinary tract infection for the past 4 days, started taking a prescription for Macrobid 3 days ago, it is not helping and things are getting worse. Now she feels tired, she had a fever of 102 prior to coming here, and some lower abdominal discomfort. No nausea or vomiting. Some discomfort in her low back but nonlateralizing. Also presents for a fall she had about a week ago, it was mechanical, she lost her footing and fell to her left side inside of her home, falling to the floor and hitting the side of her head, her left shoulder, and her left hip, the extremities are hurting worse. She had a headache for a while did not lose consciousness, he got a lot better and then she started getting a headache again when she had her urinary symptoms which is common for her when she gets a urinary infection. She gets these frequently. [facility] Medical History Arthritis Asthma Bilateral cataracts Breast cancer Bronchiectasis Chronic pain COPD (chronic obstructive pulmonary disease) Difficulty balancing DVT (deep venous thrombosis) Former smoker Generalized weakness GERD (gastroesophageal reflux disease) history of blood clot Hypertension Infection of kidney Kidney stones Knee pain Limb weakness Limb weakness Lymphedema Mass of right chest wall Migraines CISCO (obstructive sleep apnea) Osteoporosis Pneumonia Pulmonary embolism Pulmonary fibrosis Severe sepsis Shortness of breath Shoulder pain Spinal stenosis Thyroid disease Tumor of bladder neck Urinary retention UTI (urinary tract infection) Vitamin D deficiency Home Medications levothyroxine 50 mcg tablet 50 mcg PO DAILY 12/19/13 [History Last Taken 06/08/17] alprazolam 1 mg tablet 1 mg PO TID PRN PRN Anxiety 02/16/17 [History Last Taken 03/22/21 23:00] lidocaine 5 % topical ointment 35 g topical TID PRN Pain 03/11/18 [History Last Taken Unknown] cholecalciferol (vitamin D3) 25 mcg (1,000 unit) capsule 1,000 unit PO DAILY 04/12/19 [History Last Taken Unknown] fluticasone propionate 44 mcg/actuation HFA aerosol inhaler (Flovent HFA) 1 inh inhalation BID 04/12/19 [History Last Taken Unknown] hydrocodone 10 mg-acetaminophen 325 mg tablet 1 tab PO TID PRN Pain 03/24/21 [History Last Taken Unknown] ondansetron HCl 4 mg tablet (Zofran) 4 mg PO Q8H PRN nausea and vomiting #20 tabs 03/25/21 [Rx Last Taken Unknown] aspirin 81 mg tablet,delayed release (Adult Low Dose Aspirin) 81 mg PO DAILY 02/14/22 [History Last Taken Unknown] ferrous sulfate 325 mg (65 mg iron) tablet (iron) 325 mg PO DAILY 02/14/22 [History Last Taken Unknown] furosemide 40 mg tablet 40 mg PO BID 02/14/22 [History Last Taken Unknown] methylphenidate HCl 20 mg tablet 20 mg PO BID 02/14/22 [History Last Taken Unknown] nebivolol 5 mg tablet (Bystolic) 5 mg PO DAILY 02/14/22 [History Last Taken Unknown] omeprazole 20 mg capsule,delayed release 20 mg PO DAILY 02/14/22 [History Last Taken Unknown] pregabalin 150 mg capsule 150 mg PO TID Pain 02/14/22 [History Last Taken Unknown] tolterodine 4 mg capsule,extended release 24 hr 4 mg PO DAILY 02/14/22 [History Last Taken Unknown] albuterol sulfate 90 mcg/actuation aerosol inhaler gm inhalation 02/17/22 [History Last Taken Unknown] beclomethasone dipropionate 80 mcg/actuation HFA breath activated aerosol 2 inh inhalation BID 02/17/22 [History Last Taken Unknown] ciprofloxacin HCl 500 mg tablet 500 mg PO BID #14 TABLETS 03/10/22 [Rx Last Taken Unknown] Allergy/AdvReac Type Severity Reaction Status Date / Time latex Allergy Mild Rash Verified 03/09/22 22:41 doxycycline Allergy Unknown weakness Verified 03/09/22 22:41 montelukast Allergy Unknown Rash Verified 03/09/22 22:41 Sulfa (Sulfonamide Allergy Hives Verified 03/09/22 22:41 Antibiotics) oxycodone [From Percocet] AdvReac Other Verified 03/09/22 22:41 Family History Mother Cancer gastric cancer at 93 Father Emphysema lung Heart disease Brother Heart disease Diabetes Surgical History H/O elbow surgery H/O knee surgery H/O right mastectomy History of appendectomy History of bladder suspension procedure History of cardiac catheterization History of cholecystectomy History of excision of mass History of hand surgery History of hysterectomy with bilateral oophorectomy History of spinal fusion Social History household members: spouse and other details: raising her great grandson current occupational status: retired Smoking Status: Former smoker quit date: 09/14/82 Tobacco: How many years used: 15 how long ago did patient quit smoking: smoked less than a pack per week for 15 years alcohol intake: never ROS ROS ED Constitutional Constitutional ED: Denies chills or fever(s) Eyes Eyes: Denies change in vision or diplopia ENT ENT ED: Denies rhinorrhea or sore throat Cardiovascular Cardiovascular: Denies chest pain or palpitations Respiratory/Chest Respiratory/Chest: Denies cough or dyspnea Gastrointestinal Gastrointestinal: Reports abdominal pain; Denies diarrhea, nausea or vomiting Genitourinary Genitourinary ED: Reports dysuria, urinary frequency and urinary urgency; Denies hematuria Musculoskeletal Musculoskeletal: Reports back pain and extremity pain; Denies neck pain Integumentary Denies abscess or rash Neurologic Neurologic: Reports headache(s); Denies paresthesias or weakness Psychiatric Psychiatric: Denies anxiety or suicidal thoughts EXAM Physical Exam Const Vital Signs: 03/09/22 22:39 03/09/22 23:21 Temperature 98.4 F 98.4 F Temperature Source Temporal Temporal Pulse Rate 78 78 Respiratory Rate 16 16 Blood Pressure 158/72 H 158/72 H Blood Pressure Mean 100 100 Pulse Ox 98 98 Oxygen Delivery Method Room Air Room Air Positive well nourished and well developed General Appearance ED: well developed and NAD HEENT Reports moist mucous membranes normocephalic and atraumatic Eyes PERRL and EOMs intact bilaterally Neck full ROM and supple Resp normal respiratory effort and clear to auscultation bilaterally Cardio regular rate, regular rhythm and no murmurs GI non-distended GI Narrative: Mild suprapubic tenderness without guarding or rebound, otherwise benign abdomen Auscultation: normoactive bowel sounds Palpation: soft Back/Spine no CVA tenderness General Back: other FROM Extremity normal to inspection Extremity Narrative: Mildly tender left greater trochanter, there is some mild ecchymosis just posterior to this in the buttock. Full range of motion of the hip joint without any groin pain. No deformities. Full range of motion. Mild tenderness in the area of the left proximal humerus/subacromial area, no acromion or acromioclavicular joint tenderness. Full range of motion including abduction. No deformities or swelling. Otherwise, extremity exam normal. General Extremety ED: Yes tenderness; Negative for edema or pulses abnormal General Extremity: Negative for edema or pulses abnormal Neuro oriented x3, CN's II-XII intact bilaterally and no sensory deficits noted Sensorium / Orientation: awake and alert Motor Exam: strength 5/5 throughout Skin no rashes or lesions noted and no wounds MDM MDM MDM Narrative Medical decision making narrative: Urinalysis consistent with infection, the rest of her work-up is unremarkable. Sent blood cultures, urine culture, as well as a lactic acid which returned within normal limits. Her white blood count is only 4.5, her vital signs are normal except for mild hypertension and she meets no criteria for sepsis. Additionally, I obtained radiography of her injured areas, and my interpretation 3 views of the left hip and pelvis show no acute injury or fracture, and 4 views of the left shoulder show no acute injuries or fractures although there is evidence of some mild calcific tendinitis. Radiology in agreement with these interpretations. Patient has no pain in the joint with passive range of motion and she is able to walk with only pain laterally at the greater trochanter, I think she is at a low risk of having an occult hip fracture especially since I am obtaining these x-rays over 1 week out from her injury. She feels comfortable going home, I did offer admission. She was given IV Rocephin here prior to obtaining cultures, and I will send her home on ciprofloxacin, although this is not first-line treatment it is acceptable after a dose of IV Rocephin especially since this infection may have a resistance to Macrobid. Additionally, she has no evidence of head trauma, she is on no anticoagulants, and I do not think she needs a CT of her head since she essentially passed her observation. With regards to an intracranial injury. She agrees that her head injury is minor and she does not feel like she had a major injury there, her left hip and shoulder hurt more. Lab Data Attestation: I reviewed the patient's lab results. Labs: Laboratory Results - last 24 hr 03/09/22 03/09/22 03/09/22 22:50 23:08 23:08 WBC 4.5 RBC 3.70 L Hgb 10.8 L Hct 32.0 L MCV 86.5 MCH 29.2 MCHC 33.8 RDW Std Deviation 40.9 RDW Coeff of Mahi 13.0 Plt Count 220 MPV 9.4 Immature Gran % (Auto) 0.400 Neut % (Auto) 49.8 Lymph % (Auto) 34.8 [place] % (Auto) 9.9 Eos % (Auto) 4.0 Baso % (Auto) 1.1 H Absolute Neuts (auto) 2.2 Absolute Lymphs (auto) 1.55 Nucleated RBC % 0 Sodium 131 L Potassium 3.6 Chloride 96 L Carbon Dioxide 30.0 Anion Gap 5 BUN 8 Creatinine 0.84 Estim Creat Clear Calc 39.65 Est GFR (MDRD) Af Amer 85 Est GFR (MDRD) Non-Af 70 BUN/Creatinine Ratio 9.6 L Glucose 111 H Lactic Acid Calcium 9.1 Urine Color Yellow Urine Clarity Clear Urine pH 6.5 Ur Specific [place] 1.010 Urine Protein 15 H Urine Glucose (UA) Normal Urine Ketones Negative Urine Occult Blood 50 H Urine Nitrite Negative Urine Bilirubin Negative Urine Urobilinogen Normal Ur Leukocyte Esterase 500 H Urine RBC 0-5 SEEN Urine WBC 10-25 SEEN Ur Squamous Epith Cells 0-5 SEEN Ur Transition Epith Cell 0-5 SEEN Urine Bacteria 1+ Urine Mucus 0 SEEN 03/09/22 23:08 WBC RBC Hgb Hct MCV MCH MCHC RDW Std Deviation RDW Coeff of Mahi Plt Count MPV Immature Gran % (Auto) Neut % (Auto) Lymph % (Auto) [place] % (Auto) Eos % (Auto) Baso % (Auto) Absolute Neuts (auto) Absolute Lymphs (auto) Nucleated RBC % Sodium Potassium Chloride Carbon Dioxide Anion Gap BUN Creatinine Estim Creat Clear Calc Est GFR (MDRD) Af Amer Est GFR (MDRD) Non-Af BUN/Creatinine Ratio Glucose Lactic Acid 1.3 Calcium Urine Color Urine Clarity Urine pH Ur Specific [place] Urine Protein Urine Glucose (UA) Urine Ketones Urine Occult Blood Urine Nitrite Urine Bilirubin Urine Urobilinogen Ur Leukocyte Esterase Urine RBC Urine WBC Ur Squamous Epith Cells Ur Transition Epith Cell Urine Bacteria Urine Mucus Radiography Diagnostic Testing: Clinical Impression(s) from Imaging Studies Hip/Pelvis X-Ray 03/09/22 22:57 IMPRESSION: No acute fracture or dislocation. Electronically Signed: Martin Albarran MD at 23:55 EDT , Shoulder X-Ray 03/09/22 22:57 IMPRESSION: No acute fracture or dislocation. Calcific tendinitis/bursitis of the left shoulder. Electronically Signed: Martin Albarran MD at 23:57 EDT , Discharge Plan Triage Chief Complaint: Complaint ED Provider: Priyank Jaramillo Dx/Rx/DC Orders Clinical Impression: Acute cystitis without hematuria, Malaise and fatigue, Contusion of hip, left, Contusion of left shoulder, Calcific tendinitis of left shoulder Instructions: The Shoulder Joint, ED CYSTITIS Female Adult Prescriptions: New ciprofloxacin HCl [ciprofloxacin HCl] 500 mg tablet 500 mg PO BID Qty: 14 0RF No Action Flovent HFA 44 mcg/actuation HFA aerosol inhaler 1 inh INHALATION BID cholecalciferol (vitamin D3) 1,000 unit capsule 1,000 unit capsule 1,000 unit PO DAILY aspirin [Adult Low Dose Aspirin] 81 mg tablet,delayed release (DR/EC) 81 mg PO DAILY furosemide 40 mg tablet 40 mg PO BID methylphenidate HCl 20 mg tablet 20 mg PO BID nebivolol [Bystolic] 5 mg tablet 5 mg PO DAILY omeprazole 20 mg capsule,delayed release(DR/EC) 20 mg PO DAILY tolterodine 4 mg capsule,extended release 24hr 4 mg PO DAILY ferrous sulfate [iron] 325 mg (65 mg iron) tablet 325 mg PO DAILY albuterol sulfate 90 mcg/actuation HFA aerosol inhaler inhalation Label Comments: INHALE 2 PUFFS BY MOUTH and into the lungs FOUR TIMES DAILY NEEDED Qvar RediHaler 80 mcg/actuation HFA aerosol breath activated 2 inh inhalation BID Label Comments: INHALE 2 PUFFS BY MOUTH and into the lungs TWICE DAILY levothyroxine 50 MCG tablet 50 mcg PO DAILY Label Comments: Thyroid alprazolam 1 MG tablet 1 mg PO TID PRN PRN (Reason: Anxiety) lidocaine 35 GM ointment 35 g topical TID PRN (Reason: Pain) Label Comments: 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 hydrocodone-acetaminophen 10-325 mg tablet 1 tab PO TID PRN (Reason: Pain) Label Comments: TAKE 1 TABLET BY MOUTH THREE TIMES DAILY NEEDED For PAIN ondansetron HCl [Zofran] 4 mg tablet 4 mg PO Q8H PRN (Reason: nausea and vomiting) Qty: 20 0RF pregabalin 150 mg capsule 150 mg PO TID Label Comments: TAKE 1 TABLET BY MOUTH THREE TIMES DAILY Primary Care Provider: Ronaldo Ruiz Referrals: Ronaldo Ruiz DO [Primary Care Provider] - 3-5 Days Disposition Disposition: Home, Self Care
[2022-03-09] MEDS: Ceftriaxone 1 GM/50 ML BAG IV (23:16)
[2022-03-09 23:17] LABS: Mucous, Urine 0 SEEN /hpf (<or=2+)
[2022-03-09 23:17] LABS: Absolute Lymphocyte Count 1.55 X10^3/uL (0.83-4.51); Absolute Neutrophil Count 2.2 X10^3/uL (2.0-7.7); Basophil# 0.05 X10^3/uL; Basophil% 1.1 % (0-1); Eosinophil# 0.18 X10^3/uL; Hemoglobin 10.8 g/dL (12.0-15.0); Lymphocyte # 1.55 X10^3/ul (0.83-4.51); Lymphocyte % 34.8 % (19-41); Mean Corp Hgb Conc 33.8 g/dL (32-36); Mean Corpuscular Hgb 29.2 pg (27.0-32.0); Mean Corpuscular Volume 86.5 fL (81-99); Mean Platelet Vol. 9.4 fl (6.2-12.0); Monocyte# 0.44 X10^3/uL; Monocyte% 9.9 % (0-10); NRBC Flagged by Analyzer 0 % (0-5); Neutrophil # 2.22 X10^3/uL (2.7-7.7); Neutrophil % 49.8 % (47-70); Platelet Count 220 K/mm3 (150-450); RBC Distribution Width SD 40.9 fl (35.1-43.9); White Blood Count 4.5 K/mm3 (4.4-11.0)
[2022-03-09 23:21] VITALS: BP 158/72; PULSE 78; RESP 16; TEMP 36.9; O2SAT 98
[2022-03-09 23:30] LABS: Color, Urine Yellow (Yellow); Glucose, Dipstick Normal (Normal); Ketone-Dipstick Negative (Negative); Leukocyte Esterase-Dipstick 500 /ul (Negative); Nitrite-Dipstick Negative (Negative); Occult Blood-Urine 50 /ul (Negative); Protein-Dipstick 15 mg/dl (Negative); Urine Bilirubin Dipstick Negative (Negative); Urine Clarity Clear (Clear); Urine Urobilinogen Normal (Normal); Urine pH 6.5 (5.0 - 8.0)
[2022-03-09 23:32] LABS: Anion Gap 5 (5-15); BUN 8 mg/dL (7-18); BUN/Creat Ratio 9.6 RATIO (10-20); Calcium,Total 9.1 mg/dL (8.5-10.1); Chloride 96 mmol/L (98-107); Creatinine, Serum 0.84 mg/dL (0.55-1.02); EST Glomerular Filtration Rate 70 mL/min (>60); Est Glom Filt Rate - Afr Amer 85 mL/min (>60); Estimated Creatinine Clearance 39.65 ml/min; Glucose 111 mg/dL (74-106); Potassium 3.6 mmol/L (3.5-5.1); Sodium Level 131 mmol/L (136-145)
[2022-03-09 23:37] LABS: Lactic Acid 1.3 mmol/L (0.4-1.9)
[2022-03-10 00:09] LABS: Squamous Epithelial Cells - UA 0-5 SEEN /hpf (5-10); White Blood Cells 10-25 SEEN /hpf (0-5)
[2022-03-10 00:10] LABS: Bacteria 1+ /hpf (None Seen); Red Blood Cells-Urine 0-5 SEEN /hpf (0-5); Transitional Epithelial - Ur 0-5 SEEN /hpf (0-5)
[2022-03-10 00:38] VITALS: BP 148/72; PULSE 76; TEMP 36.7; O2SAT 97
== END 2022-03-10 00:38 | disposition home or self-care (01) ==
PROVIDERS: Emergency Provider Emergency Medicine; PCP Family Medicine; Visit Provider Emergency Medicine
DX: N30.00 Acute cystitis without hematuria (principal); J44.9 Chronic obstructive pulmonary disease, unspecified; J84.10 Pulmonary fibrosis, unspecified; Z85.3 Personal history of malignant neoplasm of breast; Z86.718 Personal history of other venous thrombosis and embolism; K21.9 Gastro-esophageal reflux disease without esophagitis; I10 Essential (primary) hypertension; Z87.442 Personal history of urinary calculi; G43.909 Migraine, unspecified, not intractable, without status migrainosus; G47.33 Obstructive sleep apnea (adult) (pediatric); Z86.711 Personal history of pulmonary embolism; M48.00 Spinal stenosis, site unspecified; E55.9 Vitamin D deficiency, unspecified; Z87.440 Personal history of urinary (tract) infections; M19.90 Unspecified osteoarthritis, unspecified site; G89.29 Other chronic pain; M81.0 Age-related osteoporosis without current pathological fracture; Z87.01 Personal history of pneumonia (recurrent); Z86.19 Personal history of other infectious and parasitic diseases; Z79.82 Long term (current) use of aspirin; Z79.899 Other long term (current) drug therapy; Z87.891 Personal history of nicotine dependence; S30.0XXA Contusion of lower back and pelvis, initial encounter; S40.012A Contusion of left shoulder, initial encounter; R53.81 Other malaise; R53.83 Other fatigue; M75.32 Calcific tendinitis of left shoulder; W19.XXXA Unspecified fall, initial encounter; Y92.009 Unspecified place in unspecified non-institutional (private) residence as the place of occurrence of the external cause
CPT/HCPCS: 73030; 73502; 80048; 81001; 83605; 85025; 87040; 87086; 87811; 96365; 99282; A4216

== ENCOUNTER 2022-03-23 18:06 | Emergency (ER) | payer MEDICARE, OTHER, SELFPAY ==
[2022-03-23 18:07] VITALS: BP 156/72; PULSE 64; RESP 18; TEMP 36.4; O2SAT 97; BMI 29.2
[2022-03-23 18:33] LABS: Absolute Lymphocyte Count 1.41 X10^3/uL (0.83-4.51); Absolute Neutrophil Count 2.6 X10^3/uL (2.0-7.7); Basophil# 0.07 X10^3/uL; Basophil% 1.6 % (0-1); Eosinophil# 0.17 X10^3/uL; Eosinophils% 3.8 % (0-5); Hematocrit 33.7 % (37-47); Hemoglobin 11.3 g/dL (12.0-15.0); Lymphocyte # 1.41 X10^3/ul (0.83-4.51); Lymphocyte % 31.5 % (19-41); Mean Corp Hgb Conc 33.5 g/dL (32-36); Mean Corpuscular Volume 86.6 fL (81-99); Mean Platelet Vol. 9.5 fl (6.2-12.0); Monocyte# 0.26 X10^3/uL; Monocyte% 5.8 % (0-10); NRBC Flagged by Analyzer 0 % (0-5); Neutrophil # 2.55 X10^3/uL (2.7-7.7); Neutrophil % 57.1 % (47-70); Platelet Count 240 K/mm3 (150-450); RBC Distribution Width CV 12.6 % (11.6-14.6); RBC Distribution Width SD 39.8 fl (35.1-43.9); Red Blood Count 3.89 M/mm3 (4.2-5.4); White Blood Count 4.5 K/mm3 (4.4-11.0)
--- NOTE | 2022-03-23 18:33 | ED.VIS.GI ---
HPI HPI - GI History of Present Illness Chief Complaint: Abd Pain Narrative Narrative: 76-year-old female presenting with nausea and vomiting x2 and suprapubic pain with dysuria. She states this started today. She has a history of UTIs. Patient has not had a fever at home. Does admit to hot and cold flashes. She states she has been itchy all day. She states under her breasts and in her hairline feels itchy. She denies any rashes. No new soaps, dyes, turns, linens etc. Patient states she took Benadryl before coming and it seems to be helping a little bit. Patient states that she did have a fresh nectarine yesterday and she is concerned this may be causing itching. No diarrhea or constipation. PFSH [facility] Medical History Arthritis Asthma Bilateral cataracts Breast cancer Bronchiectasis Chronic pain COPD (chronic obstructive pulmonary disease) Difficulty balancing DVT (deep venous thrombosis) Former smoker Generalized weakness GERD (gastroesophageal reflux disease) history of blood clot Hypertension Infection of kidney Kidney stones Knee pain Limb weakness Limb weakness Lymphedema Mass of right chest wall Migraines CISCO (obstructive sleep apnea) Osteoporosis Pneumonia Pulmonary embolism Pulmonary fibrosis Severe sepsis Shortness of breath Shoulder pain Spinal stenosis Thyroid disease Tumor of bladder neck Urinary retention UTI (urinary tract infection) Vitamin D deficiency Home Medications levothyroxine 50 mcg tablet 50 mcg PO DAILY 12/19/13 [History Last Taken 06/08/17] alprazolam 1 mg tablet 1 mg PO TID PRN PRN Anxiety 02/16/17 [History Last Taken 03/22/21 23:00] lidocaine 5 % topical ointment 35 g topical TID PRN Pain 03/11/18 [History Last Taken Unknown] cholecalciferol (vitamin D3) 25 mcg (1,000 unit) capsule 1,000 unit PO DAILY 04/12/19 [History Last Taken Unknown] fluticasone propionate 44 mcg/actuation HFA aerosol inhaler (Flovent HFA) 1 inh inhalation BID 04/12/19 [History Last Taken Unknown] hydrocodone 10 mg-acetaminophen 325 mg tablet 1 tab PO TID PRN Pain 03/24/21 [History Last Taken Unknown] ondansetron HCl 4 mg tablet (Zofran) 4 mg PO Q8H PRN nausea and vomiting #20 tabs 03/25/21 [Rx Last Taken Unknown] aspirin 81 mg tablet,delayed release (Adult Low Dose Aspirin) 81 mg PO DAILY 02/14/22 [History Last Taken Unknown] ferrous sulfate 325 mg (65 mg iron) tablet (iron) 325 mg PO DAILY 02/14/22 [History Last Taken Unknown] furosemide 40 mg tablet 40 mg PO BID 02/14/22 [History Last Taken Unknown] methylphenidate HCl 20 mg tablet 20 mg PO BID 02/14/22 [History Last Taken Unknown] nebivolol 5 mg tablet (Bystolic) 5 mg PO DAILY 02/14/22 [History Last Taken Unknown] omeprazole 20 mg capsule,delayed release 20 mg PO DAILY 02/14/22 [History Last Taken Unknown] pregabalin 150 mg capsule 150 mg PO TID Pain 02/14/22 [History Last Taken Unknown] tolterodine 4 mg capsule,extended release 24 hr 4 mg PO DAILY 02/14/22 [History Last Taken Unknown] albuterol sulfate 90 mcg/actuation aerosol inhaler gm inhalation 02/17/22 [History Last Taken Unknown] beclomethasone dipropionate 80 mcg/actuation HFA breath activated aerosol 2 inh inhalation BID 02/17/22 [History Last Taken Unknown] ciprofloxacin HCl 500 mg tablet 500 mg PO BID #14 TABLETS 03/10/22 [Rx Last Taken Unknown] Allergy/AdvReac Type Severity Reaction Status Date / Time latex Allergy Mild Rash Verified 03/23/22 18:06 doxycycline Allergy Unknown weakness Verified 03/23/22 18:06 montelukast Allergy Unknown Rash Verified 03/23/22 18:06 Sulfa (Sulfonamide Allergy Hives Verified 03/23/22 18:06 Antibiotics) oxycodone [From Percocet] AdvReac Other Verified 03/23/22 18:06 Family History Mother Cancer gastric cancer at 93 Father Emphysema lung Heart disease Brother Heart disease Diabetes Surgical History H/O elbow surgery H/O knee surgery H/O right mastectomy History of appendectomy History of bladder suspension procedure History of cardiac catheterization History of cholecystectomy History of excision of mass History of hand surgery History of hysterectomy with bilateral oophorectomy History of spinal fusion Social History household members: spouse and other details: raising her great grandson current occupational status: retired Smoking Status: Former smoker quit date: 09/14/82 Tobacco: How many years used: 15 how long ago did patient quit smoking: smoked less than a pack per week for 15 years alcohol intake: never ROS ROS ED Constitutional Constitutional ED: Denies chills or fever(s) ENT ENT ED: Denies rhinorrhea or sore throat Cardiovascular Cardiovascular: Denies chest pain or palpitations Respiratory/Chest Respiratory/Chest: Denies cough or dyspnea Gastrointestinal Gastrointestinal: Reports nausea, vomiting and other Details: Suprapubic pain Genitourinary Genitourinary ED: Reports dysuria and urinary frequency Musculoskeletal Musculoskeletal: Denies arthralgias, back pain or myalgias Integumentary Denies abscess or Abrasions Neurologic Neurologic: Denies headache(s) or paresthesias Psychiatric Psychiatric: Denies anxiety or depression EXAM Physical Exam Const Vital Signs: 03/23/22 18:07 03/23/22 21:03 03/23/22 21:27 Temperature 97.6 F L Temperature Source Temporal Pulse Rate 64 68 Respiratory Rate 18 16 18 Blood Pressure 156/72 H 175/86 H Blood Pressure Mean 100 115 Pulse Ox 97 91 Oxygen Delivery Method Room Air Room Air Positive well nourished General Appearance ED: NAD; Negative for pallor HEENT Reports TM's clear and moist mucous membranes Tympanic Membrane ED: Yes TM's clear Resp normal respiratory effort and clear to auscultation bilaterally Cardio regular rate and regular rhythm GI Palpation: tender suprapubic Back/Spine no CVA tenderness Neuro CN's II-XII intact bilaterally and moves all extremities Sensorium / Orientation: alert Psych mental status grossly normal Skin no wounds General Skin Exam: Negative for jaundice or pallor Lesions: no lesions Rashes: no rashes MDM MDM MDM Narrative Medical decision making narrative: Patient presenting with suprapubic pain and stating that she feels itchy all over. I do not visualize any sign of rashes. Her vital signs are stable she is afebrile. Blood work is obtained and her CBC and CMP are unremarkable. Urinalysis does not appear to be consistent with infection. Patient was given Solu-Medrol for her itching if she had already taken Benadryl. Will obtain CT of the abdomen pelvis with IV contrast. On reevaluation the patient itching is well controlled. CT the abdomen pelvis did not identify any abnormalities. Counseled patient on findings. She was given return precautions and encouraged to follow-up with her PCP otherwise. Impression: 1. Abdominal pain 2. Dysuria Lab Data Attestation: I reviewed the patient's lab results. Labs: Laboratory Results - last 24 hr 03/23/22 03/23/22 03/23/22 18:19 18:19 19:19 WBC 4.5 RBC 3.89 L Hgb 11.3 L Hct 33.7 L MCV 86.6 MCH 29.0 MCHC 33.5 RDW Std Deviation 39.8 RDW Coeff of Mahi 12.6 Plt Count 240 MPV 9.5 Immature Gran % (Auto) 0.200 Neut % (Auto) 57.1 Lymph % (Auto) 31.5 [place] % (Auto) 5.8 Eos % (Auto) 3.8 Baso % (Auto) 1.6 H Absolute Neuts (auto) 2.6 Absolute Lymphs (auto) 1.41 Nucleated RBC % 0 Sodium 133 L Potassium 4.2 Chloride 100 Carbon Dioxide 29.0 Anion Gap 4 L BUN 5 L Creatinine 0.82 Estim Creat Clear Calc 40.61 Est GFR (MDRD) Af Amer 87 Est GFR (MDRD) Non-Af 72 BUN/Creatinine Ratio 6.1 L Glucose 96 Calcium 9.4 Total Bilirubin 0.60 AST 27 ALT 18 Alkaline Phosphatase 57 Total Protein 8.3 H Albumin 3.6 Globulin 4.7 H Albumin/Globulin Ratio 0.8 L Urine Color Yellow Urine Clarity Clear Urine pH 6.5 Ur Specific [place] 1.005 Urine Protein Negative Urine Glucose (UA) Normal Urine Ketones Negative Urine Occult Blood 25 H Urine Nitrite Negative Urine Bilirubin Negative Urine Urobilinogen Normal Ur Leukocyte Esterase 100 H Urine RBC 0 SEEN Urine WBC 5-10 SEEN Ur Squamous Epith Cells 0 SEEN Urine Bacteria 0 SEEN Urine Mucus 0 SEEN Radiography Diagnostic Testing: Clinical Impression(s) from Imaging Studies Abdomen/Pelvis CT 03/23/22 19:38 IMPRESSION: 1. No acute inflammatory process or bowel obstruction. 2. Chronic changes, as above and previously dictated. Electronically Signed: Abrahan Michael MD ([place]) at 20:44 EDT , Discharge Plan Triage Chief Complaint: Abd Pain ED Provider: Serafin Barahona Dx/Rx/DC Orders Instructions: ED Abdominal Pain Unkn Cause Fem, ED Dysuria, Uncertain Cause (Adult) Prescriptions: No Action Flovent HFA 44 mcg/actuation HFA aerosol inhaler 1 inh INHALATION BID cholecalciferol (vitamin D3) 1,000 unit capsule 1,000 unit capsule 1,000 unit PO DAILY aspirin [Adult Low Dose Aspirin] 81 mg tablet,delayed release (DR/EC) 81 mg PO DAILY furosemide 40 mg tablet 40 mg PO BID methylphenidate HCl 20 mg tablet 20 mg PO BID nebivolol [Bystolic] 5 mg tablet 5 mg PO DAILY omeprazole 20 mg capsule,delayed release(DR/EC) 20 mg PO DAILY tolterodine 4 mg capsule,extended release 24hr 4 mg PO DAILY ferrous sulfate [iron] 325 mg (65 mg iron) tablet 325 mg PO DAILY albuterol sulfate 90 mcg/actuation HFA aerosol inhaler inhalation Label Comments: INHALE 2 PUFFS BY MOUTH and into the lungs FOUR TIMES DAILY NEEDED Qvar RediHaler 80 mcg/actuation HFA aerosol breath activated 2 inh inhalation BID Label Comments: INHALE 2 PUFFS BY MOUTH and into the lungs TWICE DAILY levothyroxine 50 MCG tablet 50 mcg PO DAILY Label Comments: Thyroid alprazolam 1 MG tablet 1 mg PO TID PRN PRN (Reason: Anxiety) lidocaine 35 GM ointment 35 g topical TID PRN (Reason: Pain) Label Comments: 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 hydrocodone-acetaminophen 10-325 mg tablet 1 tab PO TID PRN (Reason: Pain) Label Comments: TAKE 1 TABLET BY MOUTH THREE TIMES DAILY NEEDED For PAIN ondansetron HCl [Zofran] 4 mg tablet 4 mg PO Q8H PRN (Reason: nausea and vomiting) Qty: 20 0RF pregabalin 150 mg capsule 150 mg PO TID Label Comments: TAKE 1 TABLET BY MOUTH THREE TIMES DAILY ciprofloxacin HCl [ciprofloxacin HCl] 500 mg tablet 500 mg PO BID Qty: 14 0RF Primary Care Provider: Ronaldo Ruiz Referrals: Ronaldo Ruiz DO [Primary Care Provider] - Disposition Disposition: Home, Self Care Discharge Date/Time: 03/23/22 21:41
[2022-03-23 18:49] LABS: ALB/GLOB Ratio 0.8 RATIO (0.9-2.4); AST(SGOT) 27 U/L (15-37); Alanine Aminotransfer ALT/SGPT 18 U/L (13-56); Albumin, Serum 3.6 g/dL (3.2-5.0); Alkaline Phosphatase 57 U/L (45-117); Anion Gap 4 (5-15); BUN 5 mg/dL (7-18); BUN/Creat Ratio 6.1 RATIO (10-20); Calcium,Total 9.4 mg/dL (8.5-10.1); Chloride 100 mmol/L (98-107); Creatinine, Serum 0.82 mg/dL (0.55-1.02); EST Glomerular Filtration Rate 72 mL/min (>60); Est Glom Filt Rate - Afr Amer 87 mL/min (>60); Estimated Creatinine Clearance 40.61 ml/min; Globulin 4.7 g/dL (2.2-4.2); Glucose 96 mg/dL (74-106); Potassium 4.2 mmol/L (3.5-5.1); Protein, Total 8.3 g/dL (6.4-8.2); Sodium Level 133 mmol/L (136-145)
[2022-03-23] MEDS: MethylPREDNISolone 125 MG/2 ML Vial IV (18:49)
[2022-03-23] MEDS: Ondansetron 4 MG/2 ML Vial IV (18:49)
[2022-03-23 19:24] LABS: Bacteria 0 SEEN /hpf (None Seen); Mucous, Urine 0 SEEN /hpf (<or=2+); Red Blood Cells-Urine 0 SEEN /hpf (0-5); Squamous Epithelial Cells - UA 0 SEEN /hpf (5-10)
[2022-03-23 19:25] LABS: Color, Urine Yellow (Yellow); Glucose, Dipstick Normal (Normal); Ketone-Dipstick Negative (Negative); Leukocyte Esterase-Dipstick 100 /ul (Negative); Nitrite-Dipstick Negative (Negative); Occult Blood-Urine 25 /ul (Negative); Protein-Dipstick Negative (Negative); Specific Gravity, Urine 1.005 (1.002-1.030); Urine Bilirubin Dipstick Negative (Negative); Urine Clarity Clear (Clear); Urine Urobilinogen Normal (Normal); Urine pH 6.5 (5.0 - 8.0)
[2022-03-23 19:30] LABS: White Blood Cells 5-10 SEEN /hpf (0-5)
--- NOTE | 2022-03-23 19:38 | CT_ITS ---
STUDY: CT ABDOMEN AND PELVIS WITH CONTRAST REASON FOR EXAM: Female, 76 years old. abdominal pain RADIATION DOSAGE (If Supplied By Facility): CTDIvol = ( 16.80 ) mGy, DLP = ( 737.51 ) mGycm TECHNIQUE: Transaxial images were obtained from the dome of the diaphragm to the symphysis pubis without oral contrast. IV 100mL Isovue-370 was administered. Sagittal and coronal images were reconstructed. Individualized dose optimization techniques were used for this CT. COMPARISON: None. FINDINGS: The visualized lung bases are unremarkable. The visualized portions of the heart are within normal limits. Normal liver. Gallbladder is absent. Normal spleen. Normal pancreas. Normal bilateral adrenal glands. Normal right kidney. Normal left kidney. Normal visualized stomach. No dilated loops of small bowel. Much of the colon is nondistended. There are multiple colonic diverticula consistent with diverticulosis. The appendix is visualized and appears normal. There is diffuse atherosclerotic calcification of the abdominal aorta, without a demonstrated aneurysm. Normal inferior vena cava. Normal retroperitoneum. Normal urinary bladder. There is absence of the uterus consistent with a prior hysterectomy. There is a small umbilical hernia containing fat. Degenerative and operative changes of the lumbar spine. Stable spondylolisthesis L4-L5 and scoliosis. Injection granulomata of the bilateral gluteal subcutaneous fat. CT/Abdomen/Pelvis W IV Cont ONLY IMPRESSION: 1. No acute inflammatory process or bowel obstruction. 2. Chronic changes, as above and previously dictated. Electronically Signed: Abrahan Michael MD ([place]) at 20:44 EDT ,
[2022-03-23 21:03] VITALS: BP 175/86; PULSE 68; RESP 16; O2SAT 91
[2022-03-23 21:27] VITALS: RESP 18
== END 2022-03-23 21:41 | disposition home or self-care (01) ==
PROVIDERS: Emergency Provider Student in an Organized Health Care Education/Training Program; PCP Family Medicine; Visit Provider Student in an Organized Health Care Education/Training Program
DX: R10.30 Lower abdominal pain, unspecified (principal); J44.9 Chronic obstructive pulmonary disease, unspecified; J84.10 Pulmonary fibrosis, unspecified; R30.0 Dysuria; R11.2 Nausea with vomiting, unspecified; Z87.891 Personal history of nicotine dependence; M19.90 Unspecified osteoarthritis, unspecified site; Z85.3 Personal history of malignant neoplasm of breast; Z86.718 Personal history of other venous thrombosis and embolism; K21.9 Gastro-esophageal reflux disease without esophagitis; Z87.442 Personal history of urinary calculi; G47.33 Obstructive sleep apnea (adult) (pediatric); Z86.711 Personal history of pulmonary embolism; M48.00 Spinal stenosis, site unspecified; Z87.440 Personal history of urinary (tract) infections; E55.9 Vitamin D deficiency, unspecified; G89.29 Other chronic pain; M81.0 Age-related osteoporosis without current pathological fracture; Z87.01 Personal history of pneumonia (recurrent); E07.9 Disorder of thyroid, unspecified; Z79.899 Other long term (current) drug therapy; Z79.82 Long term (current) use of aspirin
CPT/HCPCS: 74177; 80053; 81001; 85025; 96374; 96375; 99283; Q9967; A4216; J2405

== ENCOUNTER 2022-05-20 09:44 | Observation (INO) | payer MEDICARE, OTHER, SELFPAY ==
[2022-05-20] VITALS (7 sets, daily range): BP systolic 96–147; BP diastolic 52–73; PULSE 61–75; RESP 8–16; TEMP 36.3–36.9; O2SAT 93–100; BMI 28.7; BMI 24.1
--- NOTE | 2022-05-20 09:52 | CT_ITS ---
STUDY: CT BRAIN WITHOUT CONTRAST REASON FOR EXAM: Female, 76 years old. Acute change in mental status history of breast ca RADIATION DOSAGE (If Supplied By Facility): CTDIvol = ( 44.99 ) mGy, DLP = ( 745.49 ) mGycm TECHNIQUE: Transaxial CT imaging of the brain was performed without administration of intravenous contrast material. Individualized dose optimization techniques were used for this CT. COMPARISON: No relevant priors. FINDINGS: Normal soft tissue structures. Normal calvarium. Normal size ventricles and extra-axial spaces for the patient''s age. There are areas of decreased attenuation within the white matter tracts of the supratentorial brain, consistent with microvascular disease changes. Old lacunar infarct in the right basal ganglia. Normal brainstem. Normal cerebellum. There is no intracranial hemorrhage. There are no findings of an acute ischemic infarction. Normal visualized paranasal sinuses. CT/Brain/Head without Contrast IMPRESSION: Chronic involutional changes of the brain. Electronically Signed: Nara Prakash MD at 11:33 EDT ,
--- NOTE | 2022-05-20 09:55 | EDS_ITS ---
HPI History of Present Illness Chief Complaint: Weakness Detail of Chief Complaint: Generalized weakness, decreased level of c onsciousness recent urinary tract Informant: patient and spouse/S.O. Onset/Context/Timing Onset: Today (Became abruptly worse today and especially the past several hours) Context: Gradual Onset Timing: Continuous Quality: Depressed level of consciousness Location: Generalized Current Severity: Patient unable to keep her eyes open. Requires repeated stimulation Maximum Severity: Unable to determine Worsened by: Unknown Relieved by: Nothing Associated Symptoms Associated Symptoms: Recent urinary tract infection Narrative Narrative: Patient is a 76-year-old woman with history of breast cancer diagnosed in 2018 who was seen by radiation oncologist and oncologist in [place]. She also has history of thyroid disease. Apparently she has been compliant with her meds. There is no history of head trauma. She denies head pain. She states she is unable to keep her eyes open because of unsuccessful eyelid surgery. Is no complaint of ringing or ears decreased hearing. She has had no cough or shortness of breath. There is been no vomiting or diarrhea. She is not a good informant because she is somnolent and when he asked what antibiotic her response was Percocet. Prior similar symptoms: No Recent Illness/Hospitalization: Yes (Diagnosed with UTI) [facility] Medical History Arthritis Asthma Bilateral cataracts Breast cancer Bronchiectasis Chronic pain COPD (chronic obstructive pulmonary disease) Difficulty balancing DVT (deep venous thrombosis) Former smoker Generalized weakness GERD (gastroesophageal reflux disease) history of blood clot Hypertension Infection of kidney Kidney stones Knee pain Limb weakness Limb weakness Lymphedema Mass of right chest wall Migraines CISCO (obstructive sleep apnea) Osteoporosis Pneumonia Pulmonary embolism Pulmonary fibrosis Severe sepsis Shortness of breath Shoulder pain Spinal stenosis Thyroid disease Tumor of bladder neck Urinary retention UTI (urinary tract infection) Vitamin D deficiency Home Medications levothyroxine 50 mcg tablet 50 mcg PO DAILY 12/19/13 [History Last Taken 06/08/17] alprazolam 1 mg tablet 1 mg PO TID PRN PRN Anxiety 02/16/17 [History Last Taken 03/22/21 23:00] lidocaine 5 % topical ointment 35 g topical TID PRN Pain 03/11/18 [History Last Taken Unknown] cholecalciferol (vitamin D3) 25 mcg (1,000 unit) capsule 1,000 unit PO DAILY 04/12/19 [History Last Taken Unknown] fluticasone propionate 44 mcg/actuation HFA aerosol inhaler (Flovent HFA) 1 inh inhalation BID 04/12/19 [History Last Taken Unknown] hydrocodone 10 mg-acetaminophen 325 mg tablet 1 tab PO TID PRN Pain 03/24/21 [History Last Taken Unknown] ondansetron HCl 4 mg tablet (Zofran) 4 mg PO Q8H PRN nausea and vomiting #20 tabs 03/25/21 [Rx Last Taken Unknown] aspirin 81 mg tablet,delayed release (Adult Low Dose Aspirin) 81 mg PO DAILY 02/14/22 [History Last Taken Unknown] ferrous sulfate 325 mg (65 mg iron) tablet (iron) 325 mg PO DAILY 02/14/22 [History Last Taken Unknown] furosemide 40 mg tablet 40 mg PO BID 02/14/22 [History Last Taken Unknown] methylphenidate HCl 20 mg tablet 20 mg PO BID 02/14/22 [History Last Taken Unknown] nebivolol 5 mg tablet (Bystolic) 5 mg PO DAILY 02/14/22 [History Last Taken Unknown] omeprazole 20 mg capsule,delayed release 20 mg PO DAILY 02/14/22 [History Last Taken Unknown] pregabalin 150 mg capsule 150 mg PO TID Pain 02/14/22 [History Last Taken Unknown] tolterodine 4 mg capsule,extended release 24 hr 4 mg PO DAILY 02/14/22 [History Last Taken Unknown] albuterol sulfate 90 mcg/actuation aerosol inhaler gm inhalation 02/17/22 [History Last Taken Unknown] beclomethasone dipropionate 80 mcg/actuation HFA breath activated aerosol 2 inh inhalation BID 02/17/22 [History Last Taken Unknown] ciprofloxacin HCl 500 mg tablet 500 mg PO BID #14 TABLETS 03/10/22 [Rx Last Taken Unknown] Allergy/AdvReac Type Severity Reaction Status Date / Time latex Allergy Mild Rash Verified 05/20/22 09:46 doxycycline Allergy Unknown weakness Verified 05/20/22 09:46 montelukast Allergy Unknown Rash Verified 05/20/22 09:46 Sulfa (Sulfonamide Allergy Hives Verified 05/20/22 09:46 Antibiotics) oxycodone [From Percocet] AdvReac Other Verified 05/20/22 09:46 Family History Mother Cancer gastric cancer at 93 Father Emphysema lung Heart disease Brother Heart disease Diabetes Surgical History H/O elbow surgery H/O knee surgery H/O right mastectomy History of appendectomy History of bladder suspension procedure History of cardiac catheterization History of cholecystectomy History of excision of mass History of hand surgery History of hysterectomy with bilateral oophorectomy History of spinal fusion Social History household members: spouse and other details: raising her great grandson current occupational status: retired Smoking Status: Former smoker quit date: 09/14/82 Tobacco: How many years used: 15 how long ago did patient quit smoking: smoked less than a pack per week for 15 years alcohol intake: never ROS ROS ED Review of Systems ROS Unobtainable: due to mental status and other Details: Review of systems limited to what is documented in the HPI because of depressed level of consciousness EXAM Physical Exam Const Vital Signs: 05/20/22 09:46 05/20/22 09:51 05/20/22 10:11 Temperature 98 F 98 F Temperature Source Oral Oral Pulse Rate 67 67 Respiratory Rate 10 L 10 L Respiratory Effort Normal Non-Labored Blood Pressure 96/57 L 96/57 L Blood Pressure Mean 70 70 Pulse Ox 93 93 Oxygen Delivery Method Room Air Room Air 05/20/22 10:51 05/20/22 12:24 Temperature 97.6 F L Temperature Source Oral Pulse Rate 61 75 Respiratory Rate 8 L 12 Respiratory Effort Blood Pressure 96/53 L 99/52 L Blood Pressure Mean 67 67 Pulse Ox 95 100 Oxygen Delivery Method Room Air Room Air Positive well nourished and well developed Constitutional Narrative: Patient is amulet. Patient's eyes are closed. She needs repeated stimulus to open her eyes and attempt to answer questions General Appearance ED: well developed, NAD and pallor HEENT Reports dry mucous membranes HEENT Narrative: Head is atraumatic normocephalic. Ears normal. Nares patent. Uvula midline. No deviation of tongue with protrusion. No erythema or exudate of the posterior pharynx. Mouth ED: Yes dry mucous membranes Mouth: dry mucous membranes Eyes PERRL and EOMs intact bilaterally Eyes Narrative: Conjunctive is pink. General Eye ED: Negative for pale conjunctiva or scleral icterus Neck no lymphadenopathy, supple and no JVD Chest Wall palpation of chest normal Resp normal respiratory effort and clear to auscultation bilaterally Resp Narrative: Patient's breathing only 8-10 times a minute. She is on no opiate analgesic. Cardio regular rate, regular rhythm, S1 normal heart sound, S2 normal heart sound and no murmurs GI normal to inspection, nondistended, normoactive bowel sounds, non-tender, non- distended and no masses; Negative for hepatosplenomegaly Back/Spine no CVA tenderness Extremity normal to inspection Neuro No oriented x3, CN's II-XII intact bilaterally and no sensory deficits noted Sensorium / Orientation: orientation impaired; Negative for alert Psych Psych Narrative: Difficult to assess Skin no rashes or lesions noted, no wounds and skin turgor normal General Skin Exam: pallor; Negative for jaundice MDM MDM MDM Narrative Medical decision making narrative: With altered mental status slow respiratory rate will obtain venous blood gas to assess CO2 retention and acid-base status. CT of the head was obtained since she has history of breast cancer to determine if there is any evidence of metastasis. Need to rule out metabolic infectious and specifically infectious i.e. urinary tract infection. Cath urine was ordered. Because she has history of hypothyroidism and her reflexes are diminished even though she does not have a delayed relaxation phase of her ankle reflex need to evaluate for exacerbation of hypothyroidism. Discussed case with hospitalist. Hospitalist has a very good suggestion to administer Narcan. Will give small dose and evaluate if this makes patient more responsive. There is still a concern with her having a longstanding history of opiate use, greater than 10 years, per that this may precipitate withdrawal if given more. Patient is slightly more responsive. She still is somnolent however. Suspect her depressed level consciousness is due to chronic opiate use. As previously stated concerned that patient may go through withdrawal if given a full dose of Narcan. Of note she is also hypotensive. Will administer fluid bolus. Lab Data Attestation: I reviewed the patient's lab results. Lab results narrative: Since patient is neutropenic with altered mental status this may represent encephalopathy due to COVID. Will obtain a rapid COVID test. Comprehensive metabolic panel is essentially unremarkable. TSH is normal. The neutropenia may be due to sepsis due to 2 failed outpatient treatment of urinary tract infection. UA is unremarkable. The CT per my review reveals no evidence of sinusitis or acute intracranial process. Awaiting formal read. Since the etiology of patient's depressed level of consciousness unknown and radiologist agrees with my review of no acute findings we will contact hospitalist for observation and further work-up. Also COVID test is pending. COVID test was negative. Labs: Laboratory Results - last 24 hr 05/20/22 05/20/22 05/20/22 10:00 10:00 10:25 WBC 3.5 L RBC 3.72 L Hgb 11.2 L Hct 32.4 L MCV 87.1 MCH 30.1 MCHC 34.6 RDW Std Deviation 40.9 RDW Coeff of [place] 13.1 Plt Count 229 MPV 9.7 Immature Gran % (Auto) 0.300 Neut % (Auto) 52.3 Lymph % (Auto) 30.4 [place] % (Auto) 9.9 Eos % (Auto) 5.4 H Baso % (Auto) 1.7 H Absolute Neuts (auto) 1.8 L Absolute Lymphs (auto) 1.07 Nucleated RBC % 0 Sodium 135 L Potassium 3.9 Chloride 99 Carbon Dioxide 26.0 Anion Gap 10 BUN 7 Creatinine 0.81 Estim Creat Clear Calc 43.19 Est GFR (MDRD) Af Amer 88 Est GFR (MDRD) Non-Af 73 BUN/Creatinine Ratio 8.7 L Glucose 96 Calcium 8.4 L Total Bilirubin 0.40 AST 26 ALT 21 Alkaline Phosphatase 55 Total Protein 8.2 Albumin 3.5 Globulin 4.7 H Albumin/Globulin Ratio 0.7 L TSH 2.21 Urine Color Yellow Urine Clarity Clear Urine pH 5.0 Ur Specific [place] 1.010 Urine Protein Negative Urine Glucose (UA) Normal Urine Ketones Negative Urine Occult Blood 10 H Urine Nitrite Negative Urine Bilirubin Negative Urine Urobilinogen Normal Ur Leukocyte Esterase Negative Urine RBC 0 SEEN Urine WBC 0 SEEN Ur Squamous Epith Cells 0 SEEN Urine Bacteria 0 SEEN Urine Mucus 0 SEEN ABG Data ABG results: ABG 05/20/22 05/20/22 11:15 11:15 Specimen Type EB EB VBG pH 7.33 7.33 VBG pO2 38 38 VBG HCO3 28 H 28 H VBG Total CO2 30 30 VBG O2 Sat (Calc) 67 67 VBG Base Excess 3 3 POC Mix VBG pCO2 Pt Tmp 53.9 H 53.9 H Radiography Diagnostic Testing: Clinical Impression(s) from Imaging Studies Brain CT 05/20/22 09:52 IMPRESSION: Chronic involutional changes of the brain. Electronically Signed: Nara Prakash MD at 11:33 EDT , ADDENDUM: 05/20/22 1144 IMPRESSION: undefined The radiology read of the CAT scan was reviewed. There is no acute abnormalities explain patient's symptoms. Critical Care Time Critical Care Time: Yes Critical care time (excluding procedures): 30-74 minutes (31), Including time spent: (History, physical, documentation, repeat examination), Discussing w/Patient &/or Family/Rn Night (Discussion with her . He informed that she is on [place].), Discussing w/Consultants and Arranging Admission or Transfer Discharge Plan Dx/Rx/DC Orders Clinical Impression: Acute alteration in mental status, Acute hypotension, Opiate overdose Disposition Disposition: Acute Care Hospital [facility]
[2022-05-20 10:08] LABS: Absolute Lymphocyte Count 1.07 X10^3/uL (0.83-4.51); Absolute Neutrophil Count 1.8 X10^3/uL (2.0-7.7); Basophil# 0.06 X10^3/uL; Basophil% 1.7 % (0-1); Eosinophil# 0.19 X10^3/uL; Eosinophils% 5.4 % (0-5); Hematocrit 32.4 % (37-47); Hemoglobin 11.2 g/dL (12.0-15.0); Lymphocyte # 1.07 X10^3/ul (0.83-4.51); Lymphocyte % 30.4 % (19-41); Mean Corp Hgb Conc 34.6 g/dL (32-36); Mean Corpuscular Hgb 30.1 pg (27.0-32.0); Mean Corpuscular Volume 87.1 fL (81-99); Mean Platelet Vol. 9.7 fl (6.2-12.0); Monocyte# 0.35 X10^3/uL; Monocyte% 9.9 % (0-10); NRBC Flagged by Analyzer 0 % (0-5); Neutrophil # 1.84 X10^3/uL (2.7-7.7); Neutrophil % 52.3 % (47-70); Platelet Count 229 K/mm3 (150-450); RBC Distribution Width CV 13.1 % (11.6-14.6); RBC Distribution Width SD 40.9 fl (35.1-43.9); Red Blood Count 3.72 M/mm3 (4.2-5.4); White Blood Count 3.5 K/mm3 (4.4-11.0)
[2022-05-20 10:29] LABS: Bacteria 0 SEEN /hpf (None Seen); Mucous, Urine 0 SEEN /hpf (<or=2+); Red Blood Cells-Urine 0 SEEN /hpf (0-5); Squamous Epithelial Cells - UA 0 SEEN /hpf (5-10); White Blood Cells 0 SEEN /hpf (0-5)
[2022-05-20 10:31] LABS: ALB/GLOB Ratio 0.7 RATIO (0.9-2.4); AST(SGOT) 26 U/L (15-37); Alanine Aminotransfer ALT/SGPT 21 U/L (13-56); Albumin, Serum 3.5 g/dL (3.2-5.0); Alkaline Phosphatase 55 U/L (45-117); Anion Gap 10 (5-15); BUN 7 mg/dL (7-18); BUN/Creat Ratio 8.7 RATIO (10-20); Calcium,Total 8.4 mg/dL (8.5-10.1); Chloride 99 mmol/L (98-107); Creatinine, Serum 0.81 mg/dL (0.55-1.02); EST Glomerular Filtration Rate 73 mL/min (>60); Est Glom Filt Rate - Afr Amer 88 mL/min (>60); Estimated Creatinine Clearance 43.19 ml/min; Globulin 4.7 g/dL (2.2-4.2); Glucose 96 mg/dL (74-106); Potassium 3.9 mmol/L (3.5-5.1); Protein, Total 8.2 g/dL (6.4-8.2); Sodium Level 135 mmol/L (136-145); Thyroid Stim Hormone (TSH) 2.21 uIU/mL (0.358-3.74)
[2022-05-20 10:42] LABS: Color, Urine Yellow (Yellow); Glucose, Dipstick Normal (Normal); Ketone-Dipstick Negative (Negative); Leukocyte Esterase-Dipstick Negative /ul (Negative); Nitrite-Dipstick Negative (Negative); Occult Blood-Urine 10 /ul (Negative); Protein-Dipstick Negative (Negative); Urine Bilirubin Dipstick Negative (Negative); Urine Clarity Clear (Clear); Urine Urobilinogen Normal (Normal)
--- NOTE | 2022-05-20 11:56 | NURSING ---
DR BOUDREAUX FOR DR PALAFOX
[2022-05-20] MEDS: Naloxone 0.4 MG/ML Syringe IV (12:09)
[2022-05-20 12:15] LABS: Blood Gas Specimen Type VEN; VBG BASE EXCESS 3 mmol/L (-1.0-3.5); VBG Bicarbonate 28 mmol/L (22-26); VBG PO2 38 mmHg (25-40); VBG SO2 67 % (50-70); VBG TCO2 30 mmol/L (23-33); VBG pCO2 53.9 mmHg (41-51); VBG pH 7.33 (7.32-7.42)
--- NOTE | 2022-05-20 12:56 | NURSING ---
MED SURG OBS KANIKA DEPRESSED LEVEL OF CONSCIOUSNESS DUE TO OPIATE OVERUSE
--- NOTE | 2022-05-20 14:21 | NURSING ---
pt states i just started increasing my tolteradine (Detrol) at home on my own because i didn't want to pee myself in public. pt unable to recall if/how many she took yesterday or today, unable to give specifics of when she started self-increasing the dose.
[2022-05-20] MEDS: 0.9% Normal Saline 1,000 ML 100 ML IV (14:55)
[2022-05-20] MEDS: 0.9% Saline Lock 10 ML Syringe IV (14:55)
--- NOTE | 2022-05-20 15:07 | HP.PCM.HOS_ITS ---
HPI - General General Date of Admission: 05/20/22 HPI Narrative CAROL ANN GARCIA, is a 76 F who presents to the hospital somnolent and weak. Unfortunately she is too somnolent to have a consistent discussion with and there is nobody at bedside therefore history is obtained from chart review and discussion with the nurses. According to the ER documentation and discussion with the physicians, she has been tired recently but today became significantly worse she was unable to keep her eyes open and that is why her brought her in. She recently had a urinary tract infection and according to the ER physician when he asked her what antibiotic she had been on she said Percocet therefore she was given a dose of 0.4 mg of Narcan which did to wake her up a little bit and he was able to have a better discussion with her. Upstairs when she came onto the floor nursing staff was able to discuss with her any other medication that she might have been on he states that because she has significant incontinence and her Detrol LA beyond just the daily dosing. Between the narcotics for her history of breast cancer and the Detrol LA this could explain the significant [employer] depression she is experiencing. [facility] Medical History Arthritis Asthma Bilateral cataracts Breast cancer Bronchiectasis Chronic pain COPD (chronic obstructive pulmonary disease) Difficulty balancing DVT (deep venous thrombosis) Former smoker Generalized weakness GERD (gastroesophageal reflux disease) history of blood clot Hypertension Infection of kidney Kidney stones Knee pain Limb weakness Limb weakness Lymphedema Mass of right chest wall Migraines CISCO (obstructive sleep apnea) Osteoporosis Pneumonia Pulmonary embolism Pulmonary fibrosis Severe sepsis Shortness of breath Shoulder pain Spinal stenosis Thyroid disease Tumor of bladder neck Urinary retention UTI (urinary tract infection) Vitamin D deficiency Home Medications levothyroxine 50 mcg tablet 50 mcg PO DAILY 12/19/13 [History Last Taken 06/08/17] alprazolam 1 mg tablet 1 mg PO TID PRN PRN Anxiety 02/16/17 [History Last Taken 03/22/21 23:00] lidocaine 5 % topical ointment 35 g topical TID PRN Pain 03/11/18 [History Last Taken Unknown] cholecalciferol (vitamin D3) 25 mcg (1,000 unit) capsule 1,000 unit PO DAILY Check with primary doctor 04/12/19 [History Last Taken Unknown] fluticasone propionate 44 mcg/actuation HFA aerosol inhaler (Flovent HFA) 1 inh inhalation BID Check with primary doctor 04/12/19 [History Last Taken Unknown] hydrocodone 10 mg-acetaminophen 325 mg tablet 1 tab PO TID PRN Pain 03/24/21 [History Last Taken Unknown] ondansetron HCl 4 mg tablet (Zofran) 4 mg PO Q8H PRN nausea and vomiting #20 tabs 03/25/21 [Rx Last Taken Unknown] aspirin 81 mg tablet,delayed release (Adult Low Dose Aspirin) 81 mg PO DAILY Check with primary doctor 02/14/22 [History Last Taken Unknown] ferrous sulfate 325 mg (65 mg iron) tablet (iron) 325 mg PO DAILY Check with primary doctor 02/14/22 [History Last Taken Unknown] methylphenidate HCl 20 mg tablet 20 mg PO BID 02/14/22 [History Last Taken Unknown] nebivolol 5 mg tablet (Bystolic) 5 mg PO DAILY Check with primary doctor 0 02/14/22 [History Last Taken Unknown] omeprazole 20 mg capsule,delayed release 20 mg PO DAILY Check with primary doctor 02/14/22 [History Last Taken Unknown] pregabalin 150 mg capsule 150 mg PO TID Pain 02/14/22 [History Last Taken Unknown] tolterodine 4 mg capsule,extended release 24 hr 4 mg PO DAILY Check with primary doctor 02/14/22 [History Last Taken Unknown] albuterol sulfate 90 mcg/actuation aerosol inhaler inh inhalation PRN PRN Shortness Of Breath 02/17/22 [History Last Taken Unknown] beclomethasone dipropionate 80 mcg/actuation HFA breath activated aerosol 2 inh inhalation BID Check with primary doctor 02/17/22 [History Last Taken Unknown] Allergy/AdvReac Type Severity Reaction Status Date / Time latex Allergy Mild Rash Verified 05/20/22 09:46 doxycycline Allergy Unknown weakness Verified 05/20/22 09:46 montelukast Allergy Unknown Rash Verified 05/20/22 09:46 Sulfa (Sulfonamide Allergy Hives Verified 05/20/22 09:46 Antibiotics) oxycodone [From Percocet] AdvReac Other Verified 05/20/22 09:46 Family History Mother Cancer gastric cancer at 93 Father Emphysema lung Heart disease Brother Heart disease Diabetes Surgical History H/O elbow surgery H/O knee surgery H/O right mastectomy History of appendectomy History of bladder suspension procedure History of cardiac catheterization History of cholecystectomy History of excision of mass History of hand surgery History of hysterectomy with bilateral oophorectomy History of spinal fusion Social History household members: spouse and other details: raising her great grandson current occupational status: retired Smoking Status: Former smoker quit date: 09/14/82 Tobacco: How many years used: 15 how long ago did patient quit smoking: smoked less than a pack per week for 15 years alcohol intake: never ROS Review of Systems ROS Unobtainable: due to mental status Vital Signs Vital Signs Vital Signs: 05/20/22 09:46 05/20/22 09:51 05/20/22 10:11 Temperature 98 F 98 F Temperature Source Oral Oral Pulse Rate 67 67 Respiratory Rate 10 L 10 L Respiratory Effort Normal Non-Labored Blood Pressure 96/57 L 96/57 L Blood Pressure Mean 70 70 Pulse Ox 93 93 Oxygen Delivery Method Room Air Room Air 05/20/22 10:51 05/20/22 12:24 05/20/22 13:20 Temperature 97.6 F L 97.3 F L Temperature Source Oral Temporal Pulse Rate 61 75 67 Respiratory Rate 8 L 12 12 Respiratory Effort Blood Pressure 96/53 L 99/52 L 122/73 H Blood Pressure Mean 67 67 89 Pulse Ox 95 100 95 Oxygen Delivery Method Room Air Room Air Room Air 05/20/22 14:46 Temperature Temperature Source Pulse Rate 71 Respiratory Rate 12 Respiratory Effort Blood Pressure Blood Pressure Mean Pulse Ox 93 Oxygen Delivery Method Room Air Weight Weight: 127 lb 13.89 oz Body Mass Index (BMI) 24.1 Physical Exam Narrative General: Somnolent, No apparent distress HEENT: Atraumatic, PERRLA, normocephalic Oral: Dry mucosa Neck: Supple, No JVD Lungs: Clear to auscultation, Normal air movement, No rhonchi, No wheeze, No rales Cardiovascular: Regular rate, Regular Rhythm, Normal S1, Normal S2, No murmurs Abdomen: Soft, Non Tender, Non-Distended, No Hepato-splenomegaly Extremities: No edema, Capillary Refill Less than 3 Seconds Skin: No rashes, No breakdown Musculoskeletal: No Tenderness to Palpation of Joints or Extremities Neurological: Somnolent not able to do a thorough exam Psych/Mental Status: Somnolent Results Lab / Micro Data Result Diagrams: 05/20/22 10:00 05/20/22 10:00 Labs: Laboratory Results - last 24 hr 05/20/22 10:00: WBC 3.5 L, RBC 3.72 L, Hgb 11.2 L, Hct 32.4 L, MCV 87.1, MCH 30.1, MCHC 34.6, RDW Std Deviation 40.9, RDW Coeff of Mahi 13.1, Plt Count 229, MPV 9.7, Immature Gran % (Auto) 0.300, Neut % (Auto) 52.3, Lymph % (Auto) 30.4, Heard % (Auto) 9.9, Eos % (Auto) 5.4 H, Baso % (Auto) 1.7 H, Absolute Neuts (auto) 1.8 L, Absolute Lymphs (auto) 1.07, Nucleated RBC % 0 05/20/22 10:00: Sodium 135 L, Potassium 3.9, Chloride 99, Carbon Dioxide 26.0, Anion Gap 10, BUN 7, Creatinine 0.81, Estim Creat Clear Calc 43.19, Est GFR (MDRD) Af Amer 88, Est GFR (MDRD) Non-Af 73, BUN/Creatinine Ratio 8.7 L, Glucose 96, Calcium 8.4 L, Total Bilirubin 0.40, AST 26, ALT 21, Alkaline Phosphatase 55, Total Protein 8.2, Albumin 3.5, Globulin 4.7 H, Albumin/Globulin Ratio 0.7 L , TSH 2.21 05/20/22 10:25: Urine Color Yellow, Urine Clarity Clear, Urine pH 5.0, Ur Specific Banks 1.010, Urine Protein Negative, Urine Glucose (UA) Normal, Urine Ketones Negative, Urine Occult Blood 10 H, Urine Nitrite Negative, Urine Bilirubin Negative, Urine Urobilinogen Normal, Ur Leukocyte Esterase Negative, Urine RBC 0 SEEN, Urine WBC 0 SEEN, Ur Squamous Epith Cells 0 SEEN, Urine Bacteria 0 SEEN, Urine Mucus 0 SEEN Micro: Microbiology 05/20/22 10:43 Nasal Secretion SARS-CoV-2 Antigen (Rapid) - Final ABG Data ABG results: ABG 05/20/22 05/20/22 11:15 11:15 Specimen Type EB Cancelled Sample Site Cancelled O2 % Cancelled VBG pH 7.33 Cancelled VBG pH (Temp Correct) Cancelled VBG pCO2 (Temp Corrct Cancelled VBG pO2 38 Cancelled VBG HCO3 28 H Cancelled VBG Total CO2 30 Cancelled VBG O2 Sat (Calc) 67 Cancelled VBG Base Excess 3 Cancelled POC Mix VBG pCO2 Pt Tmp 53.9 H Cancelled Respiration Rate Cancelled O2 Delivery Device Cancelled Liter Flow Cancelled Minute Volume Cancelled Inspiratory Time Cancelled Expiratory Time Cancelled Tidal Volume Cancelled Mean Airway Pressure Cancelled POC PEEP Cancelled Peak Inspir Pressure Cancelled POC Pressure Suppt Cancelled Pressure Control Cancelled EPAP Cancelled IPAP Cancelled Blood Gas Comments Cancelled Crit Call To/Read Back Cancelled Blood Gas Notified Whom Cancelled Blood Gas Notified Time Cancelled Clinical Comments Cancelled Radiology Impression Brain CT 05/20/22 09:52 IMPRESSION: Chronic involutional changes of the brain. Electronically Signed: Nara Prakash MD at 11:33 EDT Reading Location ID and State: [facility] / [place] Tel , Service support , ADDENDUM: 05/20/22 1144 IMPRESSION: undefined Assessment & Plan Assessment/Plan (1) Toxic encephalopathy: PLAN: Plan 1. 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 She takes Detrol leg a for urinary incontinence and she is on [place] because of her cancer ? She recently had a UTI which could be explained by her excessive use of Detrol LA ? We will hold these medications and place her on some IV fluids, from a respiratory standpoint she is oxygenating well and her respiratory rate is stable, will monitor closely 2. COPD/asthma ? Not in exacerbation and ? Can resume her home inhalers when verified 3. GERD ? Stable ? Can resume her PPI 4. History of breast cancer ? Continue with her [place] on discharge as its unclear whether or not she over dosed on narcotics or the Detrol DVT: Ambulation Charges/Coding Visit Charges OBSV E&M: 36268 Initial observation care L2
--- NOTE | 2022-05-20 16:51 | NURSING ---
spouse unsure of pt home meds/ pt unable to find her list in her purse. Awaiting med lists from PCP and Urinary MD office as per pt home med summary. Spouse states when he gets home tonight he will call back in with her med nitas.
--- NOTE | 2022-05-20 18:01 | NURSING ---
3 patches pt states were lidoderm patches removed by pt.
[2022-05-20] MEDS: Acetaminophen 325 MG Tablet 650 MG PO (23:20)
--- NOTE | 2022-05-21 00:22 | NURSING ---
Advised by primary RN that patient was complaining about her IV being painful. This nurse asked patient about her IV and asked if she wanted it restarted. She asked this nurse where I would put the new IV and described her pain being down the inner aspect of her forearm and not around the actual IV site. IV stopped and good flashback noted. IV site not red or swollen. Patient did not want another IV in her wrist as she stated it was still numb from a blood draw a few weeks ago. She stated the numbness was sometimes in her last 2 or fingers or sometimes in her middle finger and that the numbness moved. This nurse offered to replace her IV but advised there could not be any guarantees that a new IV would alleviate her discomfort of her forearm. The patient said to just leave the IV where it is.
[2022-05-21] MEDS: 0.9% Normal Saline 1,000 ML 100 ML IV (00:31)
[2022-05-21 01:45] VITALS: BP 138/57; PULSE 62; RESP 14; TEMP 36.9; O2SAT 99
[2022-05-21 08:05] VITALS: BP 151/58; PULSE 66; RESP 16; TEMP 36.6; O2SAT 98
[2022-05-21] MEDS: Acetaminophen 325 MG Tablet 650 MG PO (08:26)
--- NOTE | 2022-05-21 09:10 | DCINST_ITS ---
Discharge Instructions Diet Discharge Diet: Low fat / Low cholesterol Activity Discharge Activity: Return to Normal Activity Dressing / Incision Call your doctor if you observe: Fever of 101 or Higher, Shortness of breath, Dizziness, Fainting spells, Swelling in the ankles, Chest pain and Increased palpitations (irregular heartbeat) Follow Up Care Test Results: Test results from this visit will be discussed in further detail at your follow- up appointment, if applicable. Discharge Plan Admission Admit Date/Time: 05/20/22 12:25 Attending Provider: Elie Jj Primary Care Provider: Ronaldo Ruiz Discharge Orders/Prescriptions Prescriptions: Continued Flovent HFA 44 mcg/actuation HFA aerosol inhaler 1 inh INHALATION BID cholecalciferol (vitamin D3) 1,000 unit capsule 1,000 unit capsule 1,000 unit PO DAILY aspirin [Adult Low Dose Aspirin] 81 mg tablet,delayed release (DR/EC) 81 mg PO DAILY methylphenidate HCl 20 mg tablet 20 mg PO BID nebivolol [Bystolic] 5 mg tablet 5 mg PO DAILY omeprazole 20 mg capsule,delayed release(DR/EC) 20 mg PO DAILY ferrous sulfate [iron] 325 mg (65 mg iron) tablet 325 mg PO DAILY albuterol sulfate 90 mcg/actuation HFA aerosol inhaler inhalation PRN PRN (Reason: Shortness Of Breath) Label Comments: INHALE 2 PUFFS BY MOUTH and into the lungs FOUR TIMES DAILY NEEDED beclomethasone dipropionate 80 mcg/actuation HFA aerosol breath activated 2 inh inhalation BID Label Comments: INHALE 2 PUFFS BY MOUTH and into the lungs TWICE DAILY levothyroxine 50 MCG tablet 50 mcg PO DAILY Label Comments: Thyroid alprazolam 1 MG tablet 1 mg PO TID PRN PRN (Reason: Anxiety) lidocaine 35 GM ointment 35 g topical TID PRN (Reason: Pain) Label Comments: 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 ondansetron HCl [Zofran] 4 mg tablet 4 mg PO Q8H PRN (Reason: nausea and vomiting) Qty: 20 0RF pregabalin 150 mg capsule 150 mg PO TID Label Comments: TAKE 1 TABLET BY MOUTH THREE TIMES DAILY Held tolterodine 4 mg capsule,extended release 24hr 4 mg PO DAILY Hold Instructions: Resume on 05/24/22. hydrocodone-acetaminophen 10-325 mg tablet 1 tab PO TID PRN (Reason: Pain) Hold Instructions: Resume on 05/23/22. Label Comments: TAKE 1 TABLET BY MOUTH THREE TIMES DAILY NEEDED For PAIN Referrals / Follow Up: Ronaldo Ruiz DO [Primary Care Provider] - Within 1 Week Disposition Disposition (needs filled in before D/C Order can be placed): Home, Self Care
--- NOTE | 2022-05-21 09:12 | PCM.DC.SUM ---
Providers Date of Admission: 05/20/22 Primary Care Physician: Dr. Ronaldo Ruiz, DO Reason For Visit: UNINTENTIONAL OVERDOSE Diagnosis Discharge Diagnosis (1) Toxic encephalopathy: Status: Acute Code(s): G92.9 - Unspecified toxic encephalopathy Plan 1. 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 She takes Detrol leg a for urinary incontinence and she is on [place] because of her cancer ? She recently had a UTI which could be explained by her excessive use of Detrol LA ? We will hold these medications and place her on some IV fluids, from a respiratory standpoint she is oxygenating well and her respiratory rate is stable, will monitor closely 2. COPD/asthma ? Not in exacerbation and ? Can resume her home inhalers when verified 3. GERD ? Stable ? Can resume her PPI 4. History of breast cancer ? Continue with her [place] on discharge as its unclear whether or not she overdosed on narcotics or the Detrol DVT: Ambulation Medications at Discharge Home Medications levothyroxine 50 mcg tablet 50 mcg PO DAILY 12/19/13 alprazolam 1 mg tablet 1 mg PO TID PRN PRN Anxiety 02/16/17 lidocaine 5 % topical ointment 35 g topical TID PRN Pain 03/11/18 cholecalciferol (vitamin D3) 25 mcg (1,000 unit) capsule 1,000 unit PO DAILY Check with primary doctor 04/12/19 fluticasone propionate 44 mcg/actuation HFA aerosol inhaler (Flovent HFA) 1 inh inhalation BID Check with primary doctor 04/12/19 hydrocodone 10 mg-acetaminophen 325 mg tablet 1 tab PO TID PRN Pain 03/24/21 ondansetron HCl 4 mg tablet (Zofran) 4 mg PO Q8H PRN nausea and vomiting #20 tabs 03/25/21 aspirin 81 mg tablet,delayed release (Adult Low Dose Aspirin) 81 mg PO DAILY Check with primary doctor 02/14/22 ferrous sulfate 325 mg (65 mg iron) tablet (iron) 325 mg PO DAILY Check with primary doctor 02/14/22 methylphenidate HCl 20 mg tablet 20 mg PO BID 02/14/22 nebivolol 5 mg tablet (Bystolic) 5 mg PO DAILY Check with primary doctor 02/14/22 omeprazole 20 mg capsule,delayed release 20 mg PO DAILY Check with primary doctor 02/14/22 pregabalin 150 mg capsule 150 mg PO TID Pain 02/14/22 tolterodine 4 mg capsule,extended release 24 hr 4 mg PO DAILY Check with primary doctor 02/14/22 albuterol sulfate 90 mcg/actuation aerosol inhaler inh inhalation PRN PRN Shortness Of Breath 02/17/22 beclomethasone dipropionate 80 mcg/actuation HFA breath activated aerosol 2 inh inhalation BID Check with primary doctor 02/17/22 Hospital Course Operations None Procedures None Summary of Care Provided Minutes Spent on Discharge: 40 Hospital Course: Per HPI: CAROL ANN GARCIA, is a 76 F who presents to the hospital somnolent and weak.? Unfortunately she is too somnolent to have a consistent discussion with and there is nobody at bedside therefore history is obtained from chart review and discussion with the nurses.? According to the ER documentation and discussion with the physicians, she has been tired recently but today became significantly worse she was unable to keep her eyes open and that is why her brought her in.? She recently had a urinary tract infection and according to the ER physician when he asked her what antibiotic she had been on she said Percocet therefore she was given a dose of 0.4 mg of Narcan which did to wake her up a little bit and he was able to have a better discussion with her.? Upstairs when she came onto the floor nursing staff was able to discuss with her any other medication that she might have been on he states that because she has significant incontinence and her Detrol LA beyond just the daily dosing.? Between the narcotics for her history of breast cancer and the Detrol LA this could explain the significant [employer] depression she is experiencing. Hospital Course: 1. Toxic encephalopathy secondary to accidental overdose of her Detrol LA?76-year-old female with a history of urinary incontinence presents to the hospital with altered mental status. Now that she is more alert she states that she has been taking her Detrol LA multiple times a day because of significant urinary incontinence. She states that it is extremely difficult to get into her urologist and she did not know what to do. Now that her Detrol LA has been held she is much more responsive and I discussed with her why taking the Detrol LA was so detrimental. I did discuss with her that she can resume her Detrol LA once daily on Thursday or Thursday and that she can resume her narcotics on Thursday of this week. I do recommend that she follow-up with her PCP in 3 to 5 days and to attempt to find a urologist to could potentially be more responsive to her needs. I also discussed with her that if she is having significant incontinence that she should consider adult diapers to help with control. Prior to discharge we will make sure that her postvoid residuals are not significant. 2. No changes were made to any of her other home medications. Physical Exam Narrative General: Alert, Oriented x3, Cooperative, No apparent distress HEENT: Atraumatic, PERRLA, EOMI, Normocephalic Oral: Moist Mucosa Neck: Supple, No JVD Lungs: Clear to auscultation, Normal air movement, No rhonchi, No wheeze, No rales Cardiovascular: Regular rate, Regular Rhythm, Normal S1, Normal S2, No murmurs Abdomen: Soft, Non Tender, Non-Distended, No Hepato-splenomegaly Extremities: No edema, Capillary Refill Less than 3 Seconds Skin: No rashes, No breakdown Musculoskeletal: No Tenderness to Palpation of Joints or Extremities Neurological: Cranial nerves II-XII grossly intact, Motor Exam 5/5 strength throughout, Sensory exam intact to light touch and pain Psych/Mental Status: Normal Affect, Appropriate Weight / BMI Weight Weight: 127 lb 13.89 oz Body Mass Index (BMI) 24.1 ABG / Lab / Microbiology Data Result Diagrams: 05/20/22 10:00 05/20/22 10:00 Laboratory: Laboratory Results - last 24 hr 05/20/22 10:00: WBC 3.5 L, RBC 3.72 L, Hgb 11.2 L, Hct 32.4 L, MCV 87.1, MCH 30.1, MCHC 34.6, RDW Std Deviation 40.9, RDW Coeff of [place] 13.1, Plt Count 229, MPV 9.7, Immature Gran % (Auto) 0.300, Neut % (Auto) 52.3, Lymph % (Auto) 30.4, [place] % (Auto) 9.9, Eos % (Auto) 5.4 H, Baso % (Auto) 1.7 H, Absolute Neuts (auto) 1.8 L, Absolute Lymphs (auto) 1.07, Nucleated RBC % 0 05/20/22 10:00: Sodium 135 L, Potassium 3.9, Chloride 99, Carbon Dioxide 26.0, Anion Gap 10, BUN 7, Creatinine 0.81, Estim Creat Clear Calc 43.19, Est GFR (MDRD) Af Amer 88, Est GFR (MDRD) Non-Af 73, BUN/Creatinine Ratio 8.7 L, Glucose 96, Calcium 8.4 L, Total Bilirubin 0.40, AST 26, ALT 21, Alkaline Phosphatase 55, Total Protein 8.2, Albumin 3.5, Globulin 4.7 H, Albumin/Globulin Ratio 0.7 L, TSH 2.21 05/20/22 10:25: Urine Color Yellow, Urine Clarity Clear, Urine pH 5.0, Ur Specific [place] 1.010, Urine Protein Negative, Urine Glucose (UA) Normal, Urine Ketones Negative, Urine Occult Blood 10 H, Urine Nitrite Negative, Urine Bilirubin Negative, Urine Urobilinogen Normal, Ur Leukocyte Esterase Negative, Urine RBC 0 SEEN, Urine WBC 0 SEEN, Ur Squamous Epith Cells 0 SEEN, Urine Bacteria 0 SEEN, Urine Mucus 0 SEEN Microbiology: Microbiology 05/20/22 10:43 Nasal Secretion SARS-CoV-2 Antigen (Rapid) - Final ABG: ABG 05/20/22 05/20/22 11:15 11:15 Specimen Type EB Cancelled Sample Site Cancelled O2 % Cancelled VBG pH 7.33 Cancelled VBG pH (Temp Correct) Cancelled VBG pCO2 (Temp Corrct Cancelled VBG pO2 38 Cancelled VBG HCO3 28 H Cancelled VBG Total CO2 30 Cancelled VBG O2 Sat (Calc) 67 Cancelled VBG Base Excess 3 Cancelled POC Mix VBG pCO2 Pt Tmp 53.9 H Cancelled Respiration Rate Cancelled O2 Delivery Device Cancelled Liter Flow Cancelled Minute Volume Cancelled Inspiratory Time Cancelled Expiratory Time Cancelled Tidal Volume Cancelled Mean Airway Pressure Cancelled POC PEEP Cancelled Peak Inspir Pressure Cancelled POC Pressure Suppt Cancelled Pressure Control Cancelled EPAP Cancelled IPAP Cancelled Blood Gas Comments Cancelled Crit Call To/Read Back Cancelled Blood Gas Notified Whom Cancelled Blood Gas Notified Time Cancelled Clinical Comments Cancelled Radiography Diagnostic Testing: Radiology Impression Brain CT 05/20/22 09:52 IMPRESSION: Chronic involutional changes of the brain. Electronically Signed: Nara Prakash MD at 11:33 EDT Reading Location ID and State: [facility] / [place] Tel , Service support , ADDENDUM: 05/20/22 1144 IMPRESSION: undefined D/C Instructions Discharge Diet: Low fat / Low cholesterol Call your doctor if you observe: Fever of 101 or Higher, Shortness of breath, Dizziness, Fainting spells, Swelling in the ankles, Chest pain and Increased palpitations (irregular heartbeat) Meaningful Use Info Meaningful Use Diagnoses (Choose all that apply): None applicable Discharge Plan Admission Admit Date/Time: 05/20/22 12:25 Attending Provider: Elie Jj Primary Care Provider: Ronaldo Ruiz Discharge Orders/Prescriptions Prescriptions: Continued Flovent HFA 44 mcg/actuation HFA aerosol inhaler 1 inh INHALATION BID cholecalciferol (vitamin D3) 1,000 unit capsule 1,000 unit capsule 1,000 unit PO DAILY aspirin [Adult Low Dose Aspirin] 81 mg tablet,delayed release (DR/EC) 81 mg PO DAILY methylphenidate HCl 20 mg tablet 20 mg PO BID nebivolol [Bystolic] 5 mg tablet 5 mg PO DAILY omeprazole 20 mg capsule,delayed release(DR/EC) 20 mg PO DAILY ferrous sulfate [iron] 325 mg (65 mg iron) tablet 325 mg PO DAILY albuterol sulfate 90 mcg/actuation HFA aerosol inhaler inhalation PRN PRN (Reason: Shortness Of Breath) Label Comments: INHALE 2 PUFFS BY MOUTH and into the lungs FOUR TIMES DAILY NEEDED beclomethasone dipropionate 80 mcg/actuation HFA aerosol breath activated 2 inh inhalation BID Label Comments: INHALE 2 PUFFS BY MOUTH and into the lungs TWICE DAILY levothyroxine 50 MCG tablet 50 mcg PO DAILY Label Comments: Thyroid alprazolam 1 MG tablet 1 mg PO TID PRN PRN (Reason: Anxiety) lidocaine 35 GM ointment 35 g topical TID PRN (Reason: Pain) Label Comments: 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 ondansetron HCl [Zofran] 4 mg tablet 4 mg PO Q8H PRN (Reason: nausea and vomiting) Qty: 20 0RF pregabalin 150 mg capsule 150 mg PO TID Label Comments: TAKE 1 TABLET BY MOUTH THREE TIMES DAILY Held tolterodine 4 mg capsule,extended release 24hr 4 mg PO DAILY Hold Instructions: Resume on 05/24/22. hydrocodone-acetaminophen 10-325 mg tablet 1 tab PO TID PRN (Reason: Pain) Hold Instructions: Resume on 05/23/22. Label Comments: TAKE 1 TABLET BY MOUTH THREE TIMES DAILY NEEDED For PAIN Referrals / Follow Up: Ronaldo Ruiz DO [Primary Care Provider] - Within 1 Week Disposition Disposition (needs filled in before D/C Order can be placed): Home, Self Care Charges/Coding Visit Charges OBSV E&M: 06857 Observation care discharge
[2022-05-21] MEDS: Ondansetron 4 MG/2 ML Vial IV (09:35)
[2022-05-21] MEDS: 0.9% Saline Lock 10 ML Syringe IV (09:35)
--- NOTE | 2022-05-21 10:05 | CASEMGMT ---
BRAIN SANCHEZ in to pt room, discussed with patient discharge planning. Discussed CCN program with patient. Pt adamantly denied. She states she knows all of her meds and when to take them, this was a fluke accident. Pt could not recall instructions for her Detrol. She states she is nauseated and prefers not to speak to BRAIN SANCHEZ. States she is of sound mind and needs no assistance at home. She states she will speak to her urologist and discuss. Pt states she does have oxygen at home through [facility], 2.5 L prn. TC yesy Soliman at [facility], states oxygen is 2.5L cont. Pt is on RA during assessment. Pt has pox and oxygen in the car via a portable concentrator. Pt at bedside as well. Both deny homegoing needs.
== END 2022-05-21 11:24 | disposition home or self-care (01) ==
LOC: ED 11:53 → MS3 13:12
PROVIDERS: Admitting Provider Family Medicine; Emergency Provider Emergency Medicine; PCP Family Medicine; Visit Provider Family Medicine
DX: T40.2X1A Poisoning by other opioids, accidental (unintentional), initial encounter (principal); Z87.440 Personal history of urinary (tract) infections; I10 Essential (primary) hypertension; Z87.891 Personal history of nicotine dependence; R32 Unspecified urinary incontinence; R53.1 Weakness; R41.82 Altered mental status, unspecified; G89.29 Other chronic pain; G92.9 Unspecified toxic encephalopathy; Z79.82 Long term (current) use of aspirin; E07.9 Disorder of thyroid, unspecified; T44.3X1A Poisoning by other parasympatholytics [anticholinergics and antimuscarinics] and spasmolytics, accidental (unintentional), initial encounter; T39.1X1A Poisoning by 4-Aminophenol derivatives, accidental (unintentional), initial encounter; Z79.899 Other long term (current) drug therapy; Z79.890 Hormone replacement therapy; E55.9 Vitamin D deficiency, unspecified
CPT/HCPCS: 70450; 80053; 81001; 82803; 84443; 85025; 87811; 92610; 96361; 96374; 96375; 97802; 99218; 99285; J7030; P9612; A4216; G0378; J2310; J2405

== ENCOUNTER 2022-06-17 08:04 | Emergency (ER) | payer MEDICARE, OTHER, SELFPAY ==
[2022-06-17 08:05] VITALS: BP 152/69; PULSE 59; RESP 16; TEMP 35.7; O2SAT 93; BMI 26.9
[2022-06-17 08:13] VITALS: O2SAT 99
--- NOTE | 2022-06-17 08:18 | CT_ITS ---
STUDY: CT FACIAL BONES WITHOUT CONTRAST REASON FOR EXAM: Female, 76 years old. Facial injury due to a fall. RADIATION DOSAGE (If Supplied By Facility): CTDIvol = ( 29.38 ) mGy, DLP = ( 547.46 ) mGycm TECHNIQUE: The patient was scanned in a multi detector CT scanner. Sagittal and coronal images were reconstructed. Individualized dose optimization techniques were used for this CT. COMPARISON: None. FINDINGS: Normal soft tissue structures. Normal orbital gracia and orbital contents. Normal nasal bones and anterior nasal spine. Normal facial bones. There is no demonstrated fracture. Normal visualized paranasal sinuses. CT/Sinus/Facial Bone IMPRESSION: Normal unenhanced CT of the facial bones. Electronically Signed: Ananda Aguilar MD at 8:59 EDT ,
--- NOTE | 2022-06-17 08:18 | CT_ITS ---
STUDY: CT BRAIN WITHOUT CONTRAST REASON FOR EXAM: Female, 76 years old. Head injury due to a fall. RADIATION DOSAGE (If Supplied By Facility): CTDIvol = ( 44.99 ) mGy, DLP = ( 779.24 ) mGycm TECHNIQUE: Transaxial CT imaging of the brain was performed without administration of intravenous contrast material. Individualized dose optimization techniques were used for this CT. COMPARISON: Comparison is made with prior study of 05/20/2022. FINDINGS: Normal soft tissue structures. Normal calvarium. There is mild cerebral atrophy with widening of the extra-axial spaces and ventricular dilatation. Normal white matter tracts of the cerebral hemispheres. 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 Old focal area of the infarction in the posterior insular cortex of the right temporal lobe. Normal brainstem. There is mild cerebellar atrophy. There is no intracranial hemorrhage. There are no findings of an acute ischemic infarction. Normal visualized paranasal sinuses. CT/Brain/Head without Contrast IMPRESSION: Chronic involutional changes of the brain. Electronically Signed: Ananda Aguilar MD at 8:59 EDT ,
--- NOTE | 2022-06-17 08:18 | CT_ITS ---
STUDY: CT CERVICAL SPINE WITHOUT CONTRAST REASON FOR EXAM: Female, 76 years old. Pain following a fall. RADIATION DOSAGE (If Supplied By Facility): CTDIvol = ( 13.16 ) mGy, DLP = ( 286.78 ) mGycm TECHNIQUE: High resolution transaxial imaging was performed without contrast material. Sagittal and coronal images were reconstructed. Individualized dose optimization techniques were used for this CT. COMPARISON: Comparison is made with prior study dated 03/11/2018. FINDINGS: Normal craniovertebral junction. Normal anterior atlantoaxial articulation. Normal odontoid process. Normal cervical lordosis. Normal vertebral bodies and posterior osseous elements. C2-3: Normal endplates. Normal disc height and morphology. Normal central canal and intervertebral neuroforamina. C3-4: Facet joint osteoarthritis on the right side. No significant stenosis seen. C4-5: Mild degree of disc space narrowing. Anterior spondylosis. Uncovertebral arthrosis. Moderate degree of right neural foraminal stenosis. C5-6: Moderate degree of disc space narrowing. Spondylosis. Uncovertebral arthrosis. Bilateral neural foraminal stenosis. C6-7: Moderate degree of disc space narrowing. Uncovertebral arthrosis. No significant stenosis seen. C7-T1: Normal endplates. Normal disc height and morphology. Normal central canal and intervertebral neuroforamina. Normal visualized soft tissue structures. CT/Spine Cervical without Contras IMPRESSION: Multilevel degenerative changes, as described above. Electronically Signed: Ananda Aguilar MD at 9:18 EDT ,
--- NOTE | 2022-06-17 08:20 | ED.VIS.FALL ---
HPI HPI - Fall History of Present Illness Chief Complaint: Fall Informant: patient, spouse/S.O. and family Narrative Narrative: Patient presents by private vehicle family is present fall hitting head on door frame 6:30 AM this morning. States she got up walking felt like her left leg was not there causing her to fall forward. Currently denies any symptoms in the left leg. She denies any loss of consciousness. Significant headache nausea with neck pain. No vomiting. She denies any anticoagulation medicines including aspirin currently. Denies any other areas of pain. Significant other walked her to the car, she is placed in a wheelchair and brought in on arrival. [facility] Medical History Arthritis Asthma Bilateral cataracts Breast cancer Bronchiectasis Chronic pain COPD (chronic obstructive pulmonary disease) Difficulty balancing DVT (deep venous thrombosis) Former smoker Generalized weakness GERD (gastroesophageal reflux disease) history of blood clot Hypertension Infection of kidney Kidney stones Knee pain Limb weakness Limb weakness Lymphedema Mass of right chest wall Migraines CISCO (obstructive sleep apnea) Osteoporosis Pneumonia Pulmonary embolism Pulmonary fibrosis Severe sepsis Shortness of breath Shoulder pain Spinal stenosis Thyroid disease Tumor of bladder neck Urinary retention UTI (urinary tract infection) Vitamin D deficiency Home Medications levothyroxine 50 mcg tablet 50 mcg PO DAILY 12/19/13 [History Last Taken 06/08/17] alprazolam 1 mg tablet 1 mg PO TID PRN PRN Anxiety 02/16/17 [History Last Taken 03/22/21 23:00] lidocaine 5 % topical ointment 35 g topical TID PRN Pain 03/11/18 [History Last Taken Unknown] cholecalciferol (vitamin D3) 25 mcg (1,000 unit) capsule 1,000 unit PO DAILY Check with primary doctor 04/12/19 [History Last Taken Unknown] fluticasone propionate 44 mcg/actuation HFA aerosol inhaler (Flovent HFA) 1 inh inhalation BID Check with primary doctor 04/12/19 [History Last Taken Unknown] hydrocodone 10 mg-acetaminophen 325 mg tablet 1 tab PO TID PRN Pain 03/24/21 [History Last Taken 06/16/22 22:00] ondansetron HCl 4 mg tablet (Zofran) 4 mg PO Q8H PRN nausea and vomiting #20 tabs 03/25/21 [Rx Last Taken Unknown] methylphenidate HCl 20 mg tablet 20 mg PO BID 02/14/22 [History Last Taken Unknown] nebivolol 5 mg tablet (Bystolic) 5 mg PO DAILY Check with primary doctor 02/14/22 [History Last Taken Unknown] omeprazole 20 mg capsule,delayed release 20 mg PO DAILY Check with primary doctor 02/14/22 [History Last Taken Unknown] pregabalin 150 mg capsule 150 mg PO TID Pain 02/14/22 [History Last Taken Unknown] tolterodine 4 mg capsule,extended release 24 hr 4 mg PO DAILY Check with primary doctor 02/14/22 [History Last Taken Unknown] albuterol sulfate 90 mcg/actuation aerosol inhaler 2 inh inhalation PRN PRN Shortness Of Breath 02/17/22 [History Last Taken Unknown] beclomethasone dipropionate 80 mcg/actuation HFA breath activated aerosol 2 inh inhalation BID Check with primary doctor 02/17/22 [History Last Taken Unknown] ondansetron 4 mg disintegrating tablet 4 mg PO Q6H PRN nausea and vomiting #10 tabs 06/17/22 [Rx Last Taken Unknown] Allergy/AdvReac Type Severity Reaction Status Date / Time latex Allergy Mild Rash Verified 06/17/22 08:16 doxycycline Allergy Unknown weakness Verified 06/17/22 08:16 montelukast Allergy Unknown Rash Verified 06/17/22 08:16 Sulfa (Sulfonamide Allergy Hives Verified 06/17/22 08:16 Antibiotics) oxycodone [From Percocet] AdvReac Other Verified 06/17/22 08:16 Family History Mother Cancer gastric cancer at 93 Father Emphysema lung Heart disease Brother Heart disease Diabetes Surgical History H/O elbow surgery H/O knee surgery H/O right mastectomy History of appendectomy History of bladder suspension procedure History of cardiac catheterization History of cholecystectomy History of excision of mass History of hand surgery History of hysterectomy with bilateral oophorectomy History of spinal fusion Social History household members: spouse and other details: raising her great grandson current occupational status: retired Smoking Status: Former smoker quit date: 09/14/82 Tobacco: How many years used: 15 how long ago did patient quit smoking: smoked less than a pack per week for 15 years alcohol intake: never ROS ROS ED Constitutional Constitutional ED: Denies chills, fever(s) or sweats Eyes Eyes: Denies change in vision ENT ENT ED: Denies dysphagia or sore throat Cardiovascular Cardiovascular: Denies chest pain, leg edema, palpitations or racing heartbeat Respiratory/Chest Respiratory/Chest: Denies cough, dyspnea or dyspnea on exertion Gastrointestinal Gastrointestinal: Reports nausea; Denies abdominal pain, diarrhea or vomiting Genitourinary Genitourinary ED: Denies dysuria, hematuria or urinary frequency Musculoskeletal Musculoskeletal: Reports neck pain; Denies back pain or extremity pain Integumentary Denies rash or wounds Neurologic Neurologic: Reports headache(s); Denies paresthesias or weakness EXAM Physical Exam Const Vital Signs: 06/17/22 08:05 06/17/22 08:13 06/17/22 08:31 Temperature 96.3 F L Temperature Source Temporal Pulse Rate 59 L 60 Respiratory Rate 16 19 H Respiratory Effort Normal Non-Labored Respiratory Depth Normal Respiratory Pattern Normal Blood Pressure 152/69 H Blood Pressure Mean 96 Pulse Ox 93 99 97 Oxygen Delivery Method Room Air Room Air Room Air 06/17/22 10:35 06/17/22 12:04 06/17/22 12:50 Temperature Temperature Source Pulse Rate 54 L 81 Respiratory Rate 16 16 Respiratory Effort Respiratory Depth Respiratory Pattern Blood Pressure 138/61 H 138/88 H 123/83 H Blood Pressure Mean 86 104 Pulse Ox 95 97 Oxygen Delivery Method Room Air Room Air Positive well nourished and well developed Constitutional Narrative: Uncomfortable, nontoxic General Appearance ED: well developed HEENT Reports TM's normal bilaterally and moist mucous membranes HEENT Narrative: No hemotympanums. There is slight bruising left frontal and above the left brow. normocephalic and atraumatic Eyes EOMs intact bilaterally and conjunctivae normal General Eye ED: Yes normal appearance of both eyes Neck no lymphadenopathy and supple Neck Narrative: Mild paracervical tenderness no midline tenderness or step-offs. General: Negative for tenderness Chest Wall inspection of chest normal and palpation of chest normal Chest: Negative for tenderness Resp normal respiratory effort and normal air movement Effort and Inspection: symmetric chest movement; Negative for respiratory distress Cardio regular rate, regular rhythm and no murmurs Peripheral Pulses: pulses 2+ throughout GI normal to inspection, nondistended, normoactive bowel sounds and non-tender GI Narrative: Symmetric breath sounds. Palpation: Negative for guarding or rebound tenderness present Back/Spine no CVA tenderness and no thoracic nor lumbar tenderness Back/Spine Narrative: No midline tenderness previous surgical scar midline lumbar. Extremity normal to inspection Extremity Narrative: Full range of motion upper extremities without pain or deformities. Lower extremity without tenderness negative logroll bilaterally. General Extremety ED: Negative for edema or tenderness General Extremity: Negative for edema Neuro oriented x3, CN's II-XII intact bilaterally and no sensory deficits noted Sensorium / Orientation: awake and alert Skin Skin Narrative: See above facial ecchymosis MDM MDM MDM Narrative Medical decision making narrative: Patient with fall when her leg gave out no current leg symptoms. Head injury looks uncomfortable. IV established labs are stable. She is given IV fentanyl and Zofran for symptoms. Trauma scans head neck and face obtain negative for any acute process. Discussed concussion with the patient. She will use Tylenol. Prescription for Zofran to use as needed. She is able ambulate in the ED. She will follow-up with her PCP. All questions were answered. Lab Data Attestation: I reviewed the patient's lab results. Labs: Laboratory Results - last 24 hr 06/17/22 06/17/22 06/17/22 08:30 08:30 08:30 WBC 3.8 L RBC 3.93 L Hgb 11.5 L Hct 34.1 L MCV 86.8 MCH 29.3 MCHC 33.7 RDW Std Deviation 41.7 RDW Coeff of [place] 13.3 Plt Count 171 MPV 9.8 Immature Gran % (Auto) 0.000 Neut % (Auto) 66.1 Lymph % (Auto) 17.9 L [place] % (Auto) 8.3 Eos % (Auto) 6.4 H Baso % (Auto) 1.3 H Absolute Neuts (auto) 2.5 Absolute Lymphs (auto) 0.67 L Nucleated RBC % 0 PT 12.2 INR 0.9 APTT 27.1 Sodium 133 L Potassium 3.8 Chloride 99 Carbon Dioxide 28.0 Anion Gap 6 BUN 7 Creatinine 0.72 Estim Creat Clear Calc 33.30 Est GFR (MDRD) Af Amer 101 Est GFR (MDRD) Non-Af 83 BUN/Creatinine Ratio 9.7 L Glucose 98 Calcium 9.6 Radiography Diagnostic Testing: Clinical Impression(s) from Imaging Studies Brain CT 06/17/22 08:18 IMPRESSION: Chronic involutional changes of the brain. Electronically Signed: Ananda Aguilar MD at 8:59 EDT , Cervical Spine CT 06/17/22 08:18 IMPRESSION: Multilevel degenerative changes, as described above. Electronically Signed: Ananda Aguilar MD at 9:18 EDT , Facial/Sinus 06/17/22 08:18 IMPRESSION: Normal unenhanced CT of the facial bones. Electronically Signed: Ananda Aguilar MD at 8:59 EDT , Discharge Plan Triage Chief Complaint: Fall ED Provider: Vini Duarte Dx/Rx/DC Orders Clinical Impression: CHI (closed head injury), Contusion of face, Fall, Concussion Instructions: Concussion Dc, ED Facial Contusion, ED Head Injury (Adult) Prescriptions: New ondansetron 4 mg tablet,disintegrating 4 mg PO Q6H PRN (Reason: nausea and vomiting) Qty: 10 0RF No Action Flovent HFA 44 mcg/actuation HFA aerosol inhaler 1 inh INHALATION BID cholecalciferol (vitamin D3) 1,000 unit capsule 1,000 unit capsule 1,000 unit PO DAILY methylphenidate HCl 20 mg tablet 20 mg PO BID nebivolol [Bystolic] 5 mg tablet 5 mg PO DAILY omeprazole 20 mg capsule,delayed release(DR/EC) 20 mg PO DAILY tolterodine 4 mg capsule,extended release 24hr 4 mg PO DAILY Hold Instructions: Resume on 05/24/22. 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 Label Comments: TAKE 1 TABLET BY MOUTH THREE TIMES DAILY NEEDED For PAIN ondansetron HCl [Zofran] 4 mg tablet 4 mg PO Q8H PRN (Reason: nausea and vomiting) Qty: 20 0RF pregabalin 150 mg capsule 150 mg PO TID Label Comments: TAKE 1 TABLET BY MOUTH THREE TIMES DAILY Primary Care Provider: Ronaldo Ruiz Referrals: Ronaldo Ruiz DO [Primary Care Provider] - 3-5 Days Disposition Disposition: Home, Self Care Discharge Date/Time: 06/17/22 12:51
[2022-06-17] MEDS: fentaNYL 100 MCG/2 ML Ampul 25 MCG IV (08:29)
[2022-06-17] MEDS: Ondansetron 4 MG/2 ML Vial IV (08:29)
[2022-06-17] MEDS: 0.9% Normal Saline 1,000 ML 75 ML IV (08:29)
[2022-06-17 08:31] VITALS: PULSE 60; RESP 19; O2SAT 97
[2022-06-17 08:41] LABS: Absolute Lymphocyte Count 0.67 X10^3/uL (0.83-4.51); Absolute Neutrophil Count 2.5 X10^3/uL (2.0-7.7); Basophil# 0.05 X10^3/uL; Basophil% 1.3 % (0-1); Eosinophil# 0.24 X10^3/uL; Eosinophils% 6.4 % (0-5); Hematocrit 34.1 % (37-47); Hemoglobin 11.5 g/dL (12.0-15.0); Lymphocyte # 0.67 X10^3/ul (0.83-4.51); Lymphocyte % 17.9 % (19-41); Mean Corp Hgb Conc 33.7 g/dL (32-36); Mean Corpuscular Hgb 29.3 pg (27.0-32.0); Mean Corpuscular Volume 86.8 fL (81-99); Mean Platelet Vol. 9.8 fl (6.2-12.0); Monocyte# 0.31 X10^3/uL; Monocyte% 8.3 % (0-10); NRBC Flagged by Analyzer 0 % (0-5); Neutrophil # 2.48 X10^3/uL (2.7-7.7); Neutrophil % 66.1 % (47-70); Platelet Count 171 K/mm3 (150-450); RBC Distribution Width CV 13.3 % (11.6-14.6); RBC Distribution Width SD 41.7 fl (35.1-43.9); Red Blood Count 3.93 M/mm3 (4.2-5.4); White Blood Count 3.8 K/mm3 (4.4-11.0)
[2022-06-17 08:50] LABS: International Normalized Ratio 0.9; Prothrombin Time (Protime)PT. 12.2 SECONDS (11.7-14.9)
[2022-06-17 08:51] LABS: Partial Thromboplast Time 27.1 Seconds (24.1-36.2)
[2022-06-17 09:05] LABS: Anion Gap 6 (5-15); BUN 7 mg/dL (7-18); BUN/Creat Ratio 9.7 RATIO (10-20); Calcium,Total 9.6 mg/dL (8.5-10.1); Chloride 99 mmol/L (98-107); Creatinine, Serum 0.72 mg/dL (0.55-1.02); EST Glomerular Filtration Rate 83 mL/min (>60); Est Glom Filt Rate - Afr Amer 101 mL/min (>60); Glucose 98 mg/dL (74-106); Potassium 3.8 mmol/L (3.5-5.1); Sodium Level 133 mmol/L (136-145)
[2022-06-17 10:35] VITALS: BP 138/61; PULSE 54; RESP 16; O2SAT 95
[2022-06-17 12:04] VITALS: BP 138/88; PULSE 81; RESP 16; O2SAT 97
[2022-06-17 12:50] VITALS: BP 123/83
== END 2022-06-17 12:51 | disposition home or self-care (01) ==
PROVIDERS: Emergency Provider Emergency Medicine; PCP Family Medicine; Visit Provider Emergency Medicine
DX: S06.0X0A Concussion without loss of consciousness, initial encounter (principal); I10 Essential (primary) hypertension; Z87.891 Personal history of nicotine dependence; W19.XXXA Unspecified fall, initial encounter; Z79.899 Other long term (current) drug therapy; S00.83XA Contusion of other part of head, initial encounter
CPT/HCPCS: 70450; 70486; 72125; 80048; 85025; 85610; 85730; 96361; 96374; 96375; 99282; J7030; A4216; J2405

== ENCOUNTER 2022-08-27 22:51 | Emergency (ER) | payer MEDICARE, OTHER, SELFPAY ==
[2022-08-27 22:52] VITALS: BP 211/89; PULSE 76; RESP 15; TEMP 36.8; O2SAT 98; BMI 26.4
--- NOTE | 2022-08-27 23:05 | CT_ITS ---
EXAM: CT HEAD WITHOUT INTRAVENOUS CONTRAST CLINICAL INDICATION: Headache with new neuro symptoms status post trauma TECHNIQUE: Multiple axial images were obtained of the head without intravenous contrast. This CT exam was performed using one or more of the following dose reduction techniques: automated exposure control, adjustment of the mA and/or kV according to patient size, and/or use of iterative reconstruction technique. This report was created using [employer] report generation technology. COMPARISON: 06/17/2022. FINDINGS: BRAIN AND EXTRA-AXIAL SPACES: Chronic right temporal occipital encephalomalacia. No intra- or extra-axial hemorrhage. No evidence of acute infarct. No intracranial mass or mass effect. There is preservation of the call/white matter interface. Posterior fossa structures are unremarkable. Ventricles are appropriate for age. No hydrocephalus. Basal cisterns are patent. BONES/JOINTS: Unremarkable. No discrete lytic or blastic abnormalities. SINUSES: Unremarkable as visualized. Clear. MASTOID AIR CELLS: Unremarkable. Clear. ORBITS: Visualized globes, extraocular muscles, optic nerves and retrobulbar fat appear unremarkable. CT/Brain/Head without Contrast IMPRESSION: No acute findings in the head/brain. Chronic right temporal occipital encephalomalacia. Electronically Signed: Crow Correa MD at 23:38 EST ,
--- NOTE | 2022-08-27 23:07 | EX.ED.DYSGE1 ---
HPI History of Present Illness Chief Complaint: Hypertension Detail of Chief Complaint: High blood pressure Informant: patient Onset/Context/Timing Onset: Hours Context: Sudden Onset Timing: Continuous Quality: Elevated pressure, bilateral peripheral numbness and perioral numbness Location: Cardiovascular Current Severity: Patient states her something wrong Maximum Severity: Something is wrong and reason she checked her blood pressure Worsened by: Nothing Relieved by: Nothing Associated Symptoms Associated Symptoms: Bad headache since closed head injury beginning of June Narrative Narrative: Patient is a 77-year-old woman with history of hypertension. She states her blood pressure normally is 1 25-1 30 systolic. She complains of significant headache for the past 8 weeks since head trauma. Tonight she complains of change in vision, perioral, bilateral hand and feet numbness. Patient states she does not feel right. She denies chest pain, shortness of breath, nausea or vomiting. She denies back pain. She denies chest pain. She denies abdominal pain. She is not on an anticoagulant. She took an extra blood pressure med this evening. She denies orthostatic symptoms. Prior similar symptoms: No Recent Illness/Hospitalization: No PFSH PFS Medical History Arthritis Asthma Bilateral cataracts Breast cancer Bronchiectasis Chronic pain COPD (chronic obstructive pulmonary disease) Difficulty balancing DVT (deep venous thrombosis) Former smoker Generalized weakness GERD (gastroesophageal reflux disease) history of blood clot Hypertension Infection of kidney Kidney stones Knee pain Limb weakness Limb weakness Lymphedema Mass of right chest wall Migraines CISCO (obstructive sleep apnea) Osteoporosis Pneumonia Pulmonary embolism Pulmonary fibrosis Severe sepsis Shortness of breath Shoulder pain Spinal stenosis Thyroid disease Tumor of bladder neck Urinary retention UTI (urinary tract infection) Vitamin D deficiency Home Medications levothyroxine 50 mcg tablet 50 mcg PO DAILY 12/19/13 [History Last Taken 06/08/17] alprazolam 1 mg tablet 1 mg PO TID PRN PRN Anxiety 02/16/17 [History Last Taken 03/22/21 23:00] lidocaine 5 % topical ointment 35 g topical TID PRN Pain 03/11/18 [History Last Taken Unknown] cholecalciferol (vitamin D3) 25 mcg (1,000 unit) capsule 1,000 unit PO DAILY Check with primary doctor 04/12/19 [History Last Taken Unknown] fluticasone propionate 44 mcg/actuation HFA aerosol inhaler (Flovent HFA) 1 inh inhalation BID Check with primary doctor 04/12/19 [History Last Taken Unknown] hydrocodone 10 mg-acetaminophen 325 mg tablet 1 tab PO TID PRN Pain 03/24/21 [History Last Taken 06/16/22 22:00] ondansetron HCl 4 mg tablet (Zofran) 4 mg PO Q8H PRN nausea and vomiting #20 tabs 03/25/21 [Rx Last Taken Unknown] methylphenidate HCl 20 mg tablet 20 mg PO BID 02/14/22 [History Last Taken Unknown] nebivolol 5 mg tablet (Bystolic) 5 mg PO DAILY Check with primary doctor 02/14/22 [History Last Taken Unknown] omeprazole 20 mg capsule,delayed release 20 mg PO DAILY Check with primary doctor 02/14/22 [History Last Taken Unknown] pregabalin 150 mg capsule 150 mg PO TID Pain 02/14/22 [History Last Taken Unknown] tolterodine 4 mg capsule,extended release 24 hr 4 mg PO DAILY Check with primary doctor 02/14/22 [History Last Taken Unknown] albuterol sulfate 90 mcg/actuation aerosol inhaler 2 inh inhalation PRN PRN Shortness Of Breath 02/17/22 [History Last Taken Unknown] beclomethasone dipropionate 80 mcg/actuation HFA breath activated aerosol 2 inh inhalation BID Check with primary doctor 02/17/22 [History Last Taken Unknown] ondansetron 4 mg disintegrating tablet 4 mg PO Q6H PRN nausea and vomiting #10 tabs 06/17/22 [Rx Last Taken Unknown] cephalexin 500 mg capsule 500 mg PO Q6 #28 CAPSULES 08/28/22 [Rx Last Taken Unknown] lisinopril 5 mg tablet 5 mg PO DAILY #30 tabs 08/28/22 [Rx Last Taken Unknown] Allergy/AdvReac Type Severity Reaction Status Date / Time latex Allergy Mild Rash Verified 08/27/22 22:51 doxycycline Allergy Unknown weakness Verified 08/27/22 22:51 montelukast Allergy Unknown Rash Verified 08/27/22 22:51 Sulfa (Sulfonamide Allergy Hives Verified 08/27/22 22:51 Antibiotics) oxycodone [From Percocet] AdvReac Other Verified 08/27/22 22:51 Family History Mother Cancer gastric cancer at 93 Father Emphysema lung Heart disease Brother Heart disease Diabetes Surgical History H/O elbow surgery H/O knee surgery H/O right mastectomy History of appendectomy History of bladder suspension procedure History of cardiac catheterization History of cholecystectomy History of excision of mass History of hand surgery History of hysterectomy with bilateral oophorectomy History of spinal fusion Social History household members: spouse and other details: raising her great grandson current occupational status: retired Smoking Status: Former smoker quit date: 09/14/82 Tobacco: How many years used: 15 how long ago did patient quit smoking: smoked less than a pack per week for 15 years alcohol intake: never ROS ROS ED Constitutional Constitutional ED: Denies chills, fever(s), subjective, sweats or weight loss Eyes Eyes: Reports change in vision bilateral; Denies blurry vision or diplopia ENT ENT ED: Denies ear pain, rhinorrhea or sore throat Cardiovascular Cardiovascular: Denies chest pain, palpitations or racing heartbeat Respiratory/Chest Respiratory/Chest: Denies cough, dyspnea or dyspnea on exertion Gastrointestinal Gastrointestinal: Denies abdominal pain, diarrhea, nausea or vomiting Genitourinary Genitourinary ED: Reports dysuria and urinary frequency; Denies hematuria Musculoskeletal Musculoskeletal: Denies arthralgias, back pain, myalgias or neck pain Integumentary Denies abscess, Abrasions or rash Neurologic Neurologic: Reports headache(s), paresthesias and weakness Psychiatric Psychiatric: Denies anxiety or depression Endocrine Endocrinology: Denies cold intolerance, heat intolerance or polydipsia Hematologic/Lymphatic Hematologic/Lymphatic: Reports systems reviewed and no addt'l complaints, except as documented and none EXAM Physical Exam Const Vital Signs: 08/27/22 22:52 08/27/22 23:09 08/27/22 23:36 Temperature 98.3 F Temperature Source Temporal Pulse Rate 76 71 Respiratory Rate 15 12 Respiratory Effort Normal Non-Labored Respiratory Pattern Normal Blood Pressure 211/89 H 209/95 H Blood Pressure Mean 129 133 Pulse Ox 98 100 Oxygen Delivery Method Room Air Room Air 08/28/22 00:12 08/28/22 01:00 08/28/22 01:46 Temperature Temperature Source Pulse Rate 64 64 65 Respiratory Rate 16 20 H 15 Respiratory Effort Respiratory Pattern Blood Pressure 184/82 H 194/82 H 185/77 H Blood Pressure Mean 116 119 113 Pulse Ox 100 97 97 Oxygen Delivery Method Room Air Room Air Room Air Positive well nourished and well developed General Appearance ED: well developed and NAD; Negative for cyanotic, diaphoretic or pallor HEENT Reports moist mucous membranes HEENT Narrative: Head is atraumatic normocephalic. Ears normal. Nares patent. There is no APD. Unable to see fundi. Uvula midline. No deviation of protrusion. No erythema exudate the posterior pharynx. Eyes PERRL and EOMs intact bilaterally General Eye ED: Negative for pale conjunctiva or scleral icterus Neck no lymphadenopathy, supple and no JVD Chest Wall inspection of chest normal and palpation of chest normal Resp normal respiratory effort and clear to auscultation bilaterally Cardio regular rate, regular rhythm, S1 normal heart sound, S2 normal heart sound and no murmurs GI normal to inspection, nondistended, normoactive bowel sounds, non-tender, non-distended and no masses; Negative for hepatosplenomegaly GI Narrative: There is no palp pulsatile mass or abdominal bruit. Palpation: soft Back/Spine no CVA tenderness Extremity normal to inspection General Extremety ED: Negative for edema or tenderness General Extremity: Negative for edema Neuro oriented x3, CN's II-XII intact bilaterally and no sensory deficits noted Neuro Narrative: There is no clonus or Babinski. DTR symmetric. Sensorium / Orientation: alert Motor Exam: strength 5/5 throughout Psych mental status grossly normal Skin no rashes or lesions noted, no wounds and skin turgor normal General Skin Exam: Negative for elasticity normal, jaundice or pallor MDM MDM MDM Narrative Medical decision making narrative: Patient with accelerated hypertension. Will obtain basic metabolic panel to assess renal function. UA to assess for hematuria proteinuria. Because she complains of worsening headache and had head trauma 8 weeks ago and now has neurologic symptoms will obtain CT to evaluate for intraparenchymal bleed or subdural/epidural. Suspected perioral numbness and bilateral extremity numbness is due to hyperventilation. She, however, does not have a's [place] sign. This may be due to electrolyte abnormality. And will assess calcium. Patient's urine does have mild proteinuria which is not normal for patient and also occult blood. Furthermore leukoesterase were positive. There was no pyuria however she has 1+ bacteria. Patient does complain of frequency and dysuria when questioned. Since she has urinary symptoms we will treat with antibiotics. Culture was sent. Because her blood pressure is elevated at 211/88 will administer clonidine p.o. with goal of decreasing her blood pressure by 15%. Once this is achieved we will discharge to home with prescription for hydrochlorothiazide to take in addition to the medicine she is presently on. At approximately 0048 I was told that patient feels itchy and her breasts are on fire. Patient denies shortness of breath. Patient denies cough. Patient denies lightheadedness. She has not noted a rash. When asked to clarify what she means she feels as if she is having a hot flash. HEENT exams unremarkable with no evidence of angioedema. Trachea is midline. There is no stridor. Lungs are clear to auscultation. Heart is regular. There are no dermatologic lesions noted. Examination of patient's breast reveals no abnormality. I was informed by nurse that her pressure did decrease to 164 systolic. Plan is to discharge with prescription for lisinopril and cephalexin for her blood pressure and urinary symptoms respectively. Patient was prescribed lisinopril instead of diuretic since she is presently on furosemide. Lab Data Attestation: I reviewed the patient's lab results. Labs: Laboratory Results - last 24 hr 08/27/22 08/27/22 08/28/22 23:08 23:08 00:03 WBC 4.9 RBC 3.98 L Hgb 11.9 L Hct 34.5 L MCV 86.7 MCH 29.9 MCHC 34.5 RDW Std Deviation 38.5 RDW Coeff of [place] 12.2 Plt Count 223 MPV 9.3 Immature Gran % (Auto) 0.200 Neut % (Auto) 62.3 Lymph % (Auto) 27.2 [place] % (Auto) 5.6 Eos % (Auto) 3.3 Baso % (Auto) 1.4 H Absolute Neuts (auto) 3.0 Absolute Lymphs (auto) 1.32 Nucleated RBC % 0 Sodium 133 L Potassium 3.2 L Chloride 97 L Carbon Dioxide 30.0 Anion Gap 6 BUN 8 Creatinine 0.86 Estim Creat Clear Calc 38.10 Est GFR (MDRD) Af Amer 81 Est GFR (MDRD) Non-Af 67 BUN/Creatinine Ratio 9.2 L Glucose 124 H Calcium 9.4 Urine Color Yellow Urine Clarity Clear Urine pH 8.0 Ur Specific [place] 1.010 Urine Protein 30 H Urine Glucose (UA) Normal Urine Ketones Negative Urine Occult Blood 25 H Urine Nitrite Negative Urine Bilirubin Negative Urine Urobilinogen Normal Ur Leukocyte Esterase 500 H Urine RBC 0 SEEN Urine WBC 0-5 SEEN Ur Squamous Epith Cells 0-5 SEEN Urine Bacteria 1+ Urine Mucus 0 SEEN Radiography Diagnostic Testing: Clinical Impression(s) from Imaging Studies Brain CT 08/27/22 23:05 IMPRESSION: No acute findings in the head/brain. Chronic right temporal occipital encephalomalacia. Electronically Signed: Crow Correa MD at 23:38 EST , Discharge Plan Triage Chief Complaint: Hypertension ED Provider: Yoni Oleary Dx/Rx/DC Orders Clinical Impression: Accelerated essential hypertension, Urinary tract infection, Paresthesia Instructions: ED Hypertension, Established, ED Cystitis Female Adult, ED Paraesthesias Prescriptions: New cephalexin [cephalexin] 500 mg capsule 500 mg PO Q6 Qty: 28 0RF lisinopril 5 mg tablet 5 mg PO DAILY Qty: 30 0RF No Action Flovent HFA 44 mcg/actuation HFA aerosol inhaler 1 inh INHALATION BID cholecalciferol (vitamin D3) 1,000 unit capsule 1,000 unit capsule 1,000 unit PO DAILY methylphenidate HCl 20 mg tablet 20 mg PO BID nebivolol [Bystolic] 5 mg tablet 5 mg PO DAILY omeprazole 20 mg capsule,delayed release(DR/EC) 20 mg PO DAILY tolterodine 4 mg capsule,extended release 24hr 4 mg PO DAILY Hold Instructions: Resume on 05/24/22. 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 Label Comments: TAKE 1 TABLET BY MOUTH THREE TIMES DAILY NEEDED For PAIN ondansetron HCl [Zofran] 4 mg tablet 4 mg PO Q8H PRN (Reason: nausea and vomiting) Qty: 20 0RF pregabalin 150 mg capsule 150 mg PO TID Label Comments: TAKE 1 TABLET BY MOUTH THREE TIMES DAILY ondansetron 4 mg tablet,disintegrating 4 mg PO Q6H PRN (Reason: nausea and vomiting) Qty: 10 0RF Primary Care Provider: Ronaldo Ruiz Referrals: Ronaldo Ruiz DO [Primary Care Provider] - Activity Restrictions/Additional Instructions: Keep your scheduled appointment with your doctor Disposition Disposition: Home, Self Care
[2022-08-27 23:09] VITALS: BP 209/95; PULSE 71; RESP 12; O2SAT 100
[2022-08-27 23:17] LABS: Absolute Lymphocyte Count 1.32 X10^3/uL (0.83-4.51); Basophil# 0.07 X10^3/uL; Basophil% 1.4 % (0-1); Eosinophil# 0.16 X10^3/uL; Eosinophils% 3.3 % (0-5); Hematocrit 34.5 % (37-47); Hemoglobin 11.9 g/dL (12.0-15.0); Lymphocyte # 1.32 X10^3/ul (0.83-4.51); Lymphocyte % 27.2 % (19-41); Mean Corp Hgb Conc 34.5 g/dL (32-36); Mean Corpuscular Hgb 29.9 pg (27.0-32.0); Mean Corpuscular Volume 86.7 fL (81-99); Mean Platelet Vol. 9.3 fl (6.2-12.0); Monocyte# 0.27 X10^3/uL; Monocyte% 5.6 % (0-10); NRBC Flagged by Analyzer 0 % (0-5); Neutrophil # 3.03 X10^3/uL (2.7-7.7); Neutrophil % 62.3 % (47-70); Platelet Count 223 K/mm3 (150-450); RBC Distribution Width CV 12.2 % (11.6-14.6); RBC Distribution Width SD 38.5 fl (35.1-43.9); Red Blood Count 3.98 M/mm3 (4.2-5.4); White Blood Count 4.9 K/mm3 (4.4-11.0)
[2022-08-27 23:39] LABS: Anion Gap 6 (5-15); BUN 8 mg/dL (7-18); BUN/Creat Ratio 9.2 RATIO (10-20); Calcium,Total 9.4 mg/dL (8.5-10.1); Chloride 97 mmol/L (98-107); Creatinine, Serum 0.86 mg/dL (0.55-1.02); EST Glomerular Filtration Rate 67 mL/min (>60); Est Glom Filt Rate - Afr Amer 81 mL/min (>60); Glucose 124 mg/dL (74-106); Potassium 3.2 mmol/L (3.5-5.1); Sodium Level 133 mmol/L (136-145)
[2022-08-28 00:12] VITALS: BP 184/82; PULSE 64; RESP 16; O2SAT 100
[2022-08-28 00:12] LABS: Mucous, Urine 0 SEEN /hpf (<or=2+); Red Blood Cells-Urine 0 SEEN /hpf (0-5)
[2022-08-28 00:13] LABS: Color, Urine Yellow (Yellow); Glucose, Dipstick Normal (Normal); Ketone-Dipstick Negative (Negative); Leukocyte Esterase-Dipstick 500 /ul (Negative); Nitrite-Dipstick Negative (Negative); Occult Blood-Urine 25 /ul (Negative); Protein-Dipstick 30 mg/dl (Negative); Urine Bilirubin Dipstick Negative (Negative); Urine Clarity Clear (Clear); Urine Urobilinogen Normal (Normal)
[2022-08-28 00:20] LABS: Bacteria 1+ /hpf (None Seen); Squamous Epithelial Cells - UA 0-5 SEEN /hpf (5-10); White Blood Cells 0-5 SEEN /hpf (0-5)
[2022-08-28] MEDS: cloNIDine HCl 0.1 MG Tablet PO (00:38)
[2022-08-28] MEDS: Cephalexin 250 MG Capsule 500 MG PO (00:38)
[2022-08-28 01:00] VITALS: BP 194/82; PULSE 64; RESP 20; O2SAT 97
--- NOTE | 2022-08-28 01:05 | ED.RN ---
Pt alerted this RN about itching and a warm sensation all over her body, especially in her breasts. No rash noted. Dr. Oleary notified.
[2022-08-28 01:46] VITALS: BP 185/77; PULSE 65; RESP 15; O2SAT 97
[2022-08-28 02:32] VITALS: BP 170/76; PULSE 60; RESP 14; O2SAT 98
== END 2022-08-28 02:41 | disposition home or self-care (01) ==
PROVIDERS: Emergency Provider Emergency Medicine; PCP Family Medicine; Visit Provider Emergency Medicine
DX: I10 Essential (primary) hypertension (principal); N39.0 Urinary tract infection, site not specified; R20.2 Paresthesia of skin; G47.33 Obstructive sleep apnea (adult) (pediatric); Z86.718 Personal history of other venous thrombosis and embolism; Z86.711 Personal history of pulmonary embolism; Z87.891 Personal history of nicotine dependence
CPT/HCPCS: 70450; 80048; 81001; 85025; 87086; 87088; 99285; J7030; A4216

== ENCOUNTER 2022-08-28 09:37 | Emergency (ER) | payer MEDICARE, OTHER, SELFPAY ==
[2022-08-28 09:39] VITALS: BP 146/77; PULSE 61; RESP 14; TEMP 36.6; O2SAT 97; BMI 27.6
--- NOTE | 2022-08-28 09:47 | EKG12_ITS ---
Test Reason : Blood Pressure : / mmHG Vent. Rate : 054 BPM Atrial Rate : 054 BPM P-R Int : 156 ms QRS Dur : 084 ms QT Int : 498 ms P-R-T Axes : 024 002 038 degrees QTc Int : 472 ms Sinus bradycardia Otherwise normal ECG Confirmed by MANSOOR FRIEDMAN, CONNOR ([id number]), sound editor CHARITO CATALAN ([id number]) on 08/29/2022 11:01:28 AM Referred By: Confirmed By:CONNOR MAX MD
--- NOTE | 2022-08-28 09:51 | EX.ED.DYSGE1 ---
HPI History of Present Illness Chief Complaint: Weakness Informant: patient and EMS Narrative Narrative: Patient presents from home by EMS for increasing weakness chest pain a.m. this morning. Symptoms subsiding. She was seen overnight for accelerated hypertension. She had head CT negative. She reported blood pressures to level on arrival. Work-up was negative. Review of records confirms that she was given oral clonidine she had lisinopril added. She reports had a slight UTI yesterday placed on Keflex. She did have discomfort with urination. Culture is pending. She had basic labs which was normal except for potassium 3.2. She states mild cough for the past week after her COVID booster. No fevers. She has been having had symptoms since her head trauma about 8 weeks ago. She was told postconcussive symptoms. She ambulates with a walker if needed. Would typically does not use 1. History of fibromyalgia reported unable to move due to weakness. As for her chest symptoms no heart stents in the past she states a year ago at [facility] had a heart catheterization that was negative with no interventions. Status post 324 aspirin nitro per EMS. Report recurrent breast cancer right side. Initial diagnosed 2018 right mastectomy. Reported this past November recurrent status post radiation treatment no chemotherapy per her choice. Denies dyspnea. [facility] Medical History Arthritis Asthma Bilateral cataracts Breast cancer Bronchiectasis Chronic pain COPD (chronic obstructive pulmonary disease) Difficulty balancing DVT (deep venous thrombosis) Former smoker Generalized weakness GERD (gastroesophageal reflux disease) history of blood clot Hypertension Infection of kidney Kidney stones Knee pain Limb weakness Limb weakness Lymphedema Mass of right chest wall Migraines CISCO (obstructive sleep apnea) Osteoporosis Pneumonia Pulmonary embolism Pulmonary fibrosis Severe sepsis Shortness of breath Shoulder pain Spinal stenosis Thyroid disease Tumor of bladder neck Urinary retention UTI (urinary tract infection) Vitamin D deficiency Home Medications levothyroxine 50 mcg tablet 50 mcg PO DAILY 12/19/13 [History Last Taken 06/08/17] alprazolam 1 mg tablet 1 mg PO TID PRN PRN Anxiety 02/16/17 [History Last Taken 03/22/21 23:00] lidocaine 5 % topical ointment 35 g topical TID PRN Pain 03/11/18 [History Last Taken Unknown] cholecalciferol (vitamin D3) 25 mcg (1,000 unit) capsule 1,000 unit PO DAILY Check with primary doctor 04/12/19 [History Last Taken Unknown] fluticasone propionate 44 mcg/actuation HFA aerosol inhaler (Flovent HFA) 1 inh inhalation BID Check with primary doctor 04/12/19 [History Last Taken Unknown] hydrocodone 10 mg-acetaminophen 325 mg tablet 1 tab PO TID PRN Pain 03/24/21 [History Last Taken 06/16/22 22:00] ondansetron HCl 4 mg tablet (Zofran) 4 mg PO Q8H PRN nausea and vomiting #20 tabs 03/25/21 [Rx Last Taken Unknown] methylphenidate HCl 20 mg tablet 20 mg PO BID 02/14/22 [History Last Taken Unknown] nebivolol 5 mg tablet (Bystolic) 5 mg PO DAILY Check with primary doctor 02/14/22 [History Last Taken Unknown] omeprazole 20 mg capsule,delayed release 20 mg PO DAILY Check with primary doctor 02/14/22 [History Last Taken Unknown] pregabalin 150 mg capsule 150 mg PO TID Pain 02/14/22 [History Last Taken Unknown] tolterodine 4 mg capsule,extended release 24 hr 4 mg PO DAILY Check with primary doctor 02/14/22 [History Last Taken Unknown] albuterol sulfate 90 mcg/actuation aerosol inhaler 2 inh inhalation PRN PRN Shortness Of Breath 02/17/22 [History Last Taken Unknown] beclomethasone dipropionate 80 mcg/actuation HFA breath activated aerosol 2 inh inhalation BID Check with primary doctor 02/17/22 [History Last Taken Unknown] ondansetron 4 mg disintegrating tablet 4 mg PO Q6H PRN nausea and vomiting #10 tabs 06/17/22 [Rx Last Taken Unknown] cephalexin 500 mg capsule 500 mg PO Q6 #28 CAPSULES 08/28/22 [Rx Last Taken Unknown] lisinopril 5 mg tablet 5 mg PO DAILY #30 tabs 08/28/22 [Rx Last Taken Unknown] Allergy/AdvReac Type Severity Reaction Status Date / Time latex Allergy Mild Rash Verified 08/28/22 09:44 doxycycline Allergy Unknown weakness Verified 08/28/22 09:44 montelukast Allergy Unknown Rash Verified 08/28/22 09:44 Sulfa (Sulfonamide Allergy Hives Verified 08/28/22 09:44 Antibiotics) oxycodone [From Percocet] AdvReac Other Verified 08/28/22 09:44 Family History Mother Cancer gastric cancer at 93 Father Emphysema lung Heart disease Brother Heart disease Diabetes Surgical History H/O elbow surgery H/O knee surgery H/O right mastectomy History of appendectomy History of bladder suspension procedure History of cardiac catheterization History of cholecystectomy History of excision of mass History of hand surgery History of hysterectomy with bilateral oophorectomy History of spinal fusion Social History household members: spouse and other details: raising her great grandson current occupational status: retired Smoking Status: Former smoker quit date: 09/14/82 Tobacco: How many years used: 15 how long ago did patient quit smoking: smoked less than a pack per week for 15 years alcohol intake: never ROS ROS ED Constitutional Constitutional ED: Denies chills, fever(s) or sweats Eyes Eyes: Denies change in vision ENT ENT ED: Denies dysphagia or sore throat Cardiovascular Cardiovascular: Reports chest pain; Denies leg edema, palpitations or racing heartbeat Respiratory/Chest Respiratory/Chest: Denies cough, dyspnea or dyspnea on exertion Gastrointestinal Gastrointestinal: Denies abdominal pain, diarrhea, nausea or vomiting Genitourinary Genitourinary ED: Denies dysuria, hematuria or urinary frequency Musculoskeletal Musculoskeletal: Denies back pain, extremity pain or neck pain Integumentary Denies rash or wounds Neurologic Neurologic: Reports headache(s) and weakness; Denies paresthesias EXAM Physical Exam Const Vital Signs: 08/28/22 09:39 08/28/22 09:43 08/28/22 14:00 Temperature 97.8 F Temperature Source Oral Pulse Rate 61 60 Respiratory Rate 14 12 Respiratory Effort Normal Non-Labored Respiratory Pattern Normal Blood Pressure 146/77 H 176/75 H Blood Pressure Mean 100 108 Pulse Ox 97 97 Oxygen Delivery Method Room Air Room Air Positive well nourished and well developed General Appearance ED: well developed and NAD HEENT Reports moist mucous membranes normocephalic and atraumatic Eyes PERRL, EOMs intact bilaterally and conjunctivae normal General Eye ED: Yes normal appearance of both eyes Neck no lymphadenopathy and supple Neck Narrative: No meningismus General: Negative for tenderness Chest Wall Chest: Negative for tenderness Resp normal respiratory effort and normal air movement Effort and Inspection: symmetric chest movement; Negative for respiratory distress Cardio regular rate, regular rhythm and no murmurs Peripheral Pulses: pulses 2+ throughout GI normal to inspection, nondistended, normoactive bowel sounds and non-tender Palpation: Negative for guarding or rebound tenderness present Back/Spine no CVA tenderness and no thoracic nor lumbar tenderness Extremity normal to inspection General Extremety ED: Negative for edema or tenderness General Extremity: Negative for edema Neuro oriented x3, CN's II-XII intact bilaterally and no sensory deficits noted Sensorium / Orientation: awake and alert Skin no rashes or lesions noted and no wounds MDM MDM MDM Narrative Medical decision making narrative: Patient blood pressure on arrival 146/77. Negative CT brain overnight. She developed chest pain symptoms since then. We will check troponins we will check two-view chest x-ray. Will obtain EKG. EMS EKG was sinus rhythm. 1055: Patient's EKG is sinus bradycardia rate in the 50s. No acute changes noted. Two-view chest x-ray reviewed by myself shows no acute process. Initial troponin is 6. Await repeat troponin due to acute symptoms started at 8 AM prior to arrival. Repeat troponin negative. Nursing get on the commode needed 2 person assist. She had a UTI earlier. She is treated with her Keflex and requesting her Lyrica and her Delton that she takes for her back. Discussed with patient with her weakness if she require admission for rehab versus skilled center. She states she has help at home. Therefore she is discharged with return precautions. All questions were answered. Lab Data Attestation: I reviewed the patient's lab results. Labs: Laboratory Results - last 24 hr 08/28/22 08/28/22 10:01 12:26 Troponin I High Sens 6 6 Radiography Diagnostic Testing: Clinical Impression(s) from Imaging Studies Chest X-Ray 08/28/22 10:15 IMPRESSION: Stable mild degree of linear scarring at the lung bases. Electronically Signed: Ananda Aguilar MD at 12:21 EST , EKG Initial EKG: Attestation: I personally reviewed and interpreted this EKG as follows: Comments: Sinus rate of 54, no ST or T wave changes. Discharge Plan Triage Chief Complaint: Weakness ED Provider: Vini Duarte Dx/Rx/DC Orders Clinical Impression: Weakness, Acute UTI, Chest pain Instructions: Urinary Tract Infections in Women, ED Chest Pain, Uncertain Cause, ED Weakness (Uncertain Cause) Prescriptions: No Action Flovent HFA 44 mcg/actuation HFA aerosol inhaler 1 inh INHALATION BID cholecalciferol (vitamin D3) 1,000 unit capsule 1,000 unit capsule 1,000 unit PO DAILY methylphenidate HCl 20 mg tablet 20 mg PO BID nebivolol [Bystolic] 5 mg tablet 5 mg PO DAILY omeprazole 20 mg capsule,delayed release(DR/EC) 20 mg PO DAILY tolterodine 4 mg capsule,extended release 24hr 4 mg PO DAILY Hold Instructions: Resume on 05/24/22. 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 Label Comments: TAKE 1 TABLET BY MOUTH THREE TIMES DAILY NEEDED For PAIN ondansetron HCl [Zofran] 4 mg tablet 4 mg PO Q8H PRN (Reason: nausea and vomiting) Qty: 20 0RF pregabalin 150 mg capsule 150 mg PO TID Label Comments: TAKE 1 TABLET BY MOUTH THREE TIMES DAILY ondansetron 4 mg tablet,disintegrating 4 mg PO Q6H PRN (Reason: nausea and vomiting) Qty: 10 0RF cephalexin [cephalexin] 500 mg capsule 500 mg PO Q6 Qty: 28 0RF lisinopril 5 mg tablet 5 mg PO DAILY Qty: 30 0RF Primary Care Provider: Ronaldo Ruiz Referrals: Ronaldo Ruiz DO [Primary Care Provider] - 2 Days Activity Restrictions/Additional Instructions: Cardiac work-up negative on this visit. Blood pressure stable and improved. You have weakness, you were found to have a UTI overnight. You are given your next antibiotic dose. 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 Pick this up and start taking it. You declined placement to rehab or penitentiary. Follow-up with your doctor for recheck. Return if any worsening symptoms. Disposition Disposition: Home, Self Care Discharge Date/Time: 08/28/22 15:38
--- NOTE | 2022-08-28 10:15 | RAD_ITS ---
STUDY: X-RAY CHEST REASON FOR EXAM: Female, 77 years old. Cough and hypertension. TECHNIQUE: PA and lateral views of the chest. COMPARISON: Comparison is made with prior study dated 04/07/2022. FINDINGS: EKG electrodes are seen. Surgical clips are seen in the right axillary region. Stable mild increased markings at the lung bases suggests mild degree of scarring. The lungs are clear and expanded. There is no demonstrated pleural abnormality. Normal size heart. Normal mediastinum and tres. Normal visualized pulmonary arteries. There is atherosclerotic calcification of the aortic arch with tortuosity. There are diffuse degenerative changes of the visualized thoracic spine. Normal visualized ribs, clavicles, and shoulders. There is no demonstrated abnormality of the visualized soft tissue structures of the upper abdomen. RAD/Chest PA and Lateral IMPRESSION: Stable mild degree of linear scarring at the lung bases. Electronically Signed: Ananda Aguilar MD at 12:21 EST ,
[2022-08-28 10:26] LABS: Troponin-I HS (w/2H Reflex) 6 pg/mL (3.0-54.0)
[2022-08-28 12:05] LABS: Reflex Troponin-HS? (from REC) Y
[2022-08-28] MEDS: Potassium Chloride Oral Tablet 20 MEQ 40 MEQ PO (12:27)
[2022-08-28 12:57] LABS: Troponin-I HS 6 pg/mL (3.0-54.0)
[2022-08-28 14:00] VITALS: BP 176/75; PULSE 60; RESP 12; O2SAT 97
[2022-08-28] MEDS: HYDROcodone Bitartrate/Apap 5/325 Tablet PO (14:04)
[2022-08-28] MEDS: Cephalexin 250 MG Capsule 500 MG PO (14:04)
--- NOTE | 2022-08-28 15:13 | ED.RN ---
Called pharmacy for aubrey
--- NOTE | 2022-08-28 15:37 | ED.RN ---
went to room to give lyrica and patient already left. sent back to pharm after call and gave secure code.
== END 2022-08-28 15:38 | disposition home or self-care (01) ==
PROVIDERS: Emergency Provider Emergency Medicine; PCP Family Medicine; Visit Provider Emergency Medicine
DX: R53.1 Weakness (principal); J44.9 Chronic obstructive pulmonary disease, unspecified; N39.0 Urinary tract infection, site not specified; R07.9 Chest pain, unspecified; I10 Essential (primary) hypertension; G47.33 Obstructive sleep apnea (adult) (pediatric); K21.9 Gastro-esophageal reflux disease without esophagitis; E55.9 Vitamin D deficiency, unspecified; Z87.891 Personal history of nicotine dependence; Z79.899 Other long term (current) drug therapy; Z86.711 Personal history of pulmonary embolism
CPT/HCPCS: 71046; 84484; 93005; 99285

== ENCOUNTER 2022-08-29 22:18 | Emergency (ER) | payer MEDICARE, OTHER, SELFPAY ==
[2022-08-29 22:19] VITALS: BP 199/81; PULSE 62; RESP 18; TEMP 36.8; O2SAT 99; BMI 25.4
[2022-08-29 22:50] LABS: Absolute Lymphocyte Count 1.15 X10^3/uL (0.83-4.51); Absolute Neutrophil Count 3.1 X10^3/uL (2.0-7.7); Basophil# 0.07 X10^3/uL; Basophil% 1.5 % (0-1); Eosinophil# 0.15 X10^3/uL; Eosinophils% 3.2 % (0-5); Hemoglobin 12.1 g/dL (12.0-15.0); Lymphocyte # 1.15 X10^3/ul (0.83-4.51); Lymphocyte % 24.4 % (19-41); Mean Corp Hgb Conc 36.7 g/dL (32-36); Mean Corpuscular Hgb 30.8 pg (27.0-32.0); Mean Platelet Vol. 9.4 fl (6.2-12.0); Monocyte# 0.28 X10^3/uL; Monocyte% 5.9 % (0-10); NRBC Flagged by Analyzer 0 % (0-5); Neutrophil # 3.07 X10^3/uL (2.7-7.7); Platelet Count 219 K/mm3 (150-450); RBC Distribution Width SD 36.8 fl (35.1-43.9); Red Blood Count 3.93 M/mm3 (4.2-5.4); White Blood Count 4.7 K/mm3 (4.4-11.0)
[2022-08-29 22:56] LABS: Anion Gap 6 (5-15); BUN 12 mg/dL (7-18); BUN/Creat Ratio 15.4 RATIO (10-20); Calcium,Total 9.2 mg/dL (8.5-10.1); Chloride 97 mmol/L (98-107); Creatinine, Serum 0.78 mg/dL (0.55-1.02); EST Glomerular Filtration Rate 76 mL/min (>60); Est Glom Filt Rate - Afr Amer 92 mL/min (>60); Estimated Creatinine Clearance 34.42 ml/min; Glucose 116 mg/dL (74-106); Potassium 3.8 mmol/L (3.5-5.1); Sodium Level 130 mmol/L (136-145); Troponin-I HS 5 pg/mL (3.0-54.0)
[2022-08-29 23:00] VITALS: BP 171/77; PULSE 60; RESP 18; O2SAT 97
--- NOTE | 2022-08-29 23:19 | EDS_ITS ---
HPI History of Present Illness Chief Complaint: Hypertension Informant: patient Narrative Narrative: When up at home again. She states she can tell because she gets a flushed warm feeling in her face. She is not having chest pain. Her blood pressure was 150s then went up to 180s and then went up to 200 systolic. That is what prompted her to come in. She has been seen for this in the last couple days. She actually saw her primary physician today. Couple days ago they started lisinopril at 5 mg. Today at the private physician's office they stopped lisinopril but doubled the Bystolic. She is now on Bystolic 5 mg twice a day for a total of 10 mg a day. This is approximately one quarter of the max dose. However, she took 1 Bystolic in the morning and then a half in the evening rather than a full 1. After taking the second half dose to bring her up to 2 total in a day, her blood pressure is coming down. She feels fine now. Patient does report having a heart cath within the past year at [facility] that evidently was normal and showed no need for stenting. [facility] Medical History Arthritis Asthma Bilateral cataracts Breast cancer Bronchiectasis Chronic pain COPD (chronic obstructive pulmonary disease) Difficulty balancing DVT (deep venous thrombosis) Former smoker Generalized weakness GERD (gastroesophageal reflux disease) history of blood clot Hypertension Infection of kidney Kidney stones Knee pain Limb weakness Limb weakness Lymphedema Mass of right chest wall Migraines CISCO (obstructive sleep apnea) Osteoporosis Pneumonia Pulmonary embolism Pulmonary fibrosis Severe sepsis Shortness of breath Shoulder pain Spinal stenosis Thyroid disease Tumor of bladder neck Urinary retention UTI (urinary tract infection) Vitamin D deficiency Home Medications levothyroxine 50 mcg tablet 50 mcg PO DAILY 12/19/13 [History Last Taken 06/08/17] alprazolam 1 mg tablet 1 mg PO TID PRN PRN Anxiety 02/16/17 [History Last Taken 03/22/21 23:00] lidocaine 5 % topical ointment 35 g topical TID PRN Pain 03/11/18 [History Last Taken Unknown] cholecalciferol (vitamin D3) 25 mcg (1,000 unit) capsule 1,000 unit PO DAILY Check with primary doctor 04/12/19 [History Last Taken Unknown] fluticasone propionate 44 mcg/actuation HFA aerosol inhaler (Flovent HFA) 1 inh inhalation BID Check with primary doctor 04/12/19 [History Last Taken Unknown] hydrocodone 10 mg-acetaminophen 325 mg tablet 1 tab PO TID PRN Pain 03/24/21 [History Last Taken 06/16/22 22:00] ondansetron HCl 4 mg tablet (Zofran) 4 mg PO Q8H PRN nausea and vomiting #20 tabs 03/25/21 [Rx Last Taken Unknown] methylphenidate HCl 20 mg tablet 20 mg PO BID 02/14/22 [History Last Taken Unknown] nebivolol 5 mg tablet (Bystolic) 5 mg PO DAILY Check with primary doctor 02/14/22 [History Last Taken Unknown] omeprazole 20 mg capsule,delayed release 20 mg PO DAILY Check with primary doctor 02/14/22 [History Last Taken Unknown] pregabalin 150 mg capsule 150 mg PO TID Pain 02/14/22 [History Last Taken Unknown] tolterodine 4 mg capsule,extended release 24 hr 4 mg PO DAILY Check with primary doctor 02/14/22 [History Last Taken Unknown] albuterol sulfate 90 mcg/actuation aerosol inhaler 2 inh inhalation PRN PRN Shortness Of Breath 02/17/22 [History Last Taken Unknown] beclomethasone dipropionate 80 mcg/actuation HFA breath activated aerosol 2 inh inhalation BID Check with primary doctor 02/17/22 [History Last Taken Unknown] ondansetron 4 mg disintegrating tablet 4 mg PO Q6H PRN nausea and vomiting #10 tabs 06/17/22 [Rx Last Taken Unknown] cephalexin 500 mg capsule 500 mg PO Q6 #28 CAPSULES 08/28/22 [Rx Last Taken Unknown] lisinopril 5 mg tablet 5 mg PO DAILY #30 tabs 08/28/22 [Rx Last Taken Unknown] Allergy/AdvReac Type Severity Reaction Status Date / Time latex Allergy Mild Rash Verified 08/29/22 22:22 doxycycline Allergy Unknown weakness Verified 08/29/22 22:22 montelukast Allergy Unknown Rash Verified 08/29/22 22:22 Sulfa (Sulfonamide Allergy Hives Verified 08/29/22 22:22 Antibiotics) oxycodone [From Percocet] AdvReac Other Verified 08/29/22 22:22 Family History Mother Cancer gastric cancer at 93 Father Emphysema lung Heart disease Brother Heart disease Diabetes Surgical History H/O elbow surgery H/O knee surgery H/O right mastectomy History of appendectomy History of bladder suspension procedure History of cardiac catheterization History of cholecystectomy History of excision of mass History of hand surgery History of hysterectomy with bilateral oophorectomy History of spinal fusion Social History household members: spouse and other details: raising her great grandson current occupational status: retired Smoking Status: Former smoker quit date: 09/14/82 Tobacco: How many years used: 15 how long ago did patient quit smoking: smoked less than a pack per week for 15 years alcohol intake: never ROS ROS ED Constitutional Constitutional ED: Denies sweats Eyes Eyes: Denies blurry vision, change in vision or diplopia ENT ENT ED: Denies rhinorrhea Cardiovascular Cardiovascular: Denies chest pain, palpitations or racing heartbeat Respiratory/Chest Respiratory/Chest: Denies cough or dyspnea Gastrointestinal Gastrointestinal: Denies nausea or vomiting Musculoskeletal Musculoskeletal: Denies back pain, myalgias or neck pain Integumentary Reports other Details: She did feel facial flushing when her blood pressure went up. This is commonly assembled to her. Neurologic Neurologic: Denies headache(s) Endocrine Endocrinology: Denies polyuria Hematologic/Lymphatic Hematologic/Lymphatic: Denies easy bleeding or easy bruising Allergic/Immunologic Allergic/Immunologic ED: Denies urticaria EXAM Physical Exam Const Vital Signs: 08/29/22 22:19 08/29/22 23:00 08/29/22 23:00 Temperature 98.2 F Temperature Source Temporal Pulse Rate 62 60 Respiratory Rate 18 18 Respiratory Effort Normal Non-Labored Respiratory Pattern Normal Blood Pressure 199/81 H 171/77 H Blood Pressure Mean 120 108 Pulse Ox 99 97 Oxygen Delivery Method Room Air Room Air 08/30/22 00:34 Temperature Temperature Source Pulse Rate 56 L Respiratory Rate 18 Respiratory Effort Respiratory Pattern Blood Pressure 132/58 H Blood Pressure Mean 82 Pulse Ox 97 Oxygen Delivery Method Room Air Positive well nourished and well developed General Appearance ED: well developed and NAD; Negative for cyanotic or diaphoretic HEENT Reports moist mucous membranes Eyes EOMs intact bilaterally Neck no lymphadenopathy and no JVD Chest Wall inspection of chest normal Resp normal respiratory effort and clear to auscultation bilaterally Cardio regular rate, regular rhythm and no murmurs GI normal to inspection, nondistended, normoactive bowel sounds and non-tender Back/Spine no CVA tenderness Extremity normal to inspection General Extremety ED: Negative for edema or tenderness General Extremity: Negative for edema Neuro oriented x3 Sensorium / Orientation: Negative for lethargic or stuporous Psych mental status grossly normal MDM MDM MDM Narrative Medical decision making narrative: Patient CBC is normal. Electrolytes are normal other than minimal drop of sodium. Troponin is negative. I reviewed prior troponins which are negative. Her blood pressures come down to 132/58 without any intervention by us. This is after her second half dose of Bystolic at home. She feels well. We can get her home to follow-up with her primary physician. We discussed reasons indication and blood pressure levels at which to return. Lab Data Attestation: I reviewed the patient's lab results. Labs: Laboratory Results - last 24 hr 08/29/22 08/29/22 22:35 22:35 WBC 4.7 RBC 3.93 L Hgb 12.1 Hct 33.0 L MCV 84.0 MCH 30.8 MCHC 36.7 H D RDW Std Deviation 36.8 RDW Coeff of [place] 12.0 Plt Count 219 MPV 9.4 Immature Gran % (Auto) 0.000 Neut % (Auto) 65.0 Lymph % (Auto) 24.4 [place] % (Auto) 5.9 Eos % (Auto) 3.2 Baso % (Auto) 1.5 H Absolute Neuts (auto) 3.1 Absolute Lymphs (auto) 1.15 Nucleated RBC % 0 Sodium 130 L Potassium 3.8 Chloride 97 L Carbon Dioxide 27.0 Anion Gap 6 BUN 12 Creatinine 0.78 Estim Creat Clear Calc 34.42 Est GFR (MDRD) Af Amer 92 Est GFR (MDRD) Non-Af 76 BUN/Creatinine Ratio 15.4 Glucose 116 H Calcium 9.2 Troponin I High Sens 5 Discharge Plan Triage Chief Complaint: Hypertension ED Provider: Percy Solorzano Dx/Rx/DC Orders Clinical Impression: Essential hypertension, Facial flushing Instructions: ED Hypertension, Established Prescriptions: No Action Flovent HFA 44 mcg/actuation HFA aerosol inhaler 1 inh INHALATION BID cholecalciferol (vitamin D3) 1,000 unit capsule 1,000 unit capsule 1,000 unit PO DAILY methylphenidate HCl 20 mg tablet 20 mg PO BID nebivolol [Bystolic] 5 mg tablet 5 mg PO DAILY omeprazole 20 mg capsule,delayed release(DR/EC) 20 mg PO DAILY tolterodine 4 mg capsule,extended release 24hr 4 mg PO DAILY Hold Instructions: Resume on 05/24/22. 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 Label Comments: TAKE 1 TABLET BY MOUTH THREE TIMES DAILY NEEDED For PAIN ondansetron HCl [Zofran] 4 mg tablet 4 mg PO Q8H PRN (Reason: nausea and vomiting) Qty: 20 0RF pregabalin 150 mg capsule 150 mg PO TID Label Comments: TAKE 1 TABLET BY MOUTH THREE TIMES DAILY ondansetron 4 mg tablet,disintegrating 4 mg PO Q6H PRN (Reason: nausea and vomiting) Qty: 10 0RF cephalexin [cephalexin] 500 mg capsule 500 mg PO Q6 Qty: 28 0RF lisinopril 5 mg tablet 5 mg PO DAILY Qty: 30 0RF Primary Care Provider: Ronaldo Ruiz Referrals: Ronaldo Ruiz DO [Primary Care Provider] - 1 Week Disposition Disposition: Home, Self Care
[2022-08-30 00:34] VITALS: BP 132/58; PULSE 56; RESP 18; O2SAT 97
[2022-08-30 00:55] VITALS: BP 167/66; PULSE 58; RESP 16; O2SAT 97
== END 2022-08-30 00:56 | disposition home or self-care (01) ==
PROVIDERS: Emergency Provider Emergency Medicine; PCP Family Medicine; Visit Provider Emergency Medicine
DX: I10 Essential (primary) hypertension (principal); Z87.891 Personal history of nicotine dependence; Z79.899 Other long term (current) drug therapy; R23.2 Flushing
CPT/HCPCS: 80048; 84484; 85025; 99282; A4216

== ENCOUNTER → 2022-10-23 | Outpatient (CLI) | payer MEDICARE, OTHER, SELFPAY | END | disposition home or self-care (01) | LOC: LABSPEC 16:54 | PROVIDERS: PCP Family Medicine; Visit Provider Otolaryngology | DX: B37.0 Candidal stomatitis (principal) | CPT/HCPCS: 87070 ==

== ENCOUNTER 2022-11-17 20:08 | Emergency (ER) | payer MEDICARE, OTHER, SELFPAY ==
[2022-11-17 20:10] VITALS: BP 163/72; PULSE 70; RESP 18; TEMP 36.4; O2SAT 98; BMI 27.2
[2022-11-17 20:16] VITALS: BP 163/72; PULSE 70; RESP 18; TEMP 36.4; O2SAT 98
--- NOTE | 2022-11-17 20:32 | EKG12_ITS ---
Test Reason : CP Blood Pressure : / mmHG Vent. Rate : 065 BPM Atrial Rate : 065 BPM P-R Int : 170 ms QRS Dur : 086 ms QT Int : 430 ms P-R-T Axes : 039 006 015 degrees QTc Int : 447 ms Normal sinus rhythm Normal ECG Confirmed by ADRIANA FRIEDMAN, PAULETTE ([id number]), technical editor CHARITO CATALAN ([id number]) on 11/19/2022 10:11:52 AM Referred By: JE Confirmed By:PAULETTE WRIGHT MD
--- NOTE | 2022-11-17 20:37 | RAD_ITS ---
STUDY: X-RAY CHEST REASON FOR EXAM: Female, 77 years old. Chest pain. Shortness of breath and elevated blood pressure today. TECHNIQUE: Single AP portable view of the chest. COMPARISON: August 28, 2022. FINDINGS: Mildly improved inspiratory effort when compared to prior study. There is continued minimal linear scarring at the left lung base. Lungs are otherwise clear. There is no demonstrated pleural abnormality. Normal size heart. Normal mediastinum and tres. Normal visualized pulmonary arteries. Normal visualized aortic arch and descending thoracic aorta. Dextroscoliosis of the thoracic spine. There are surgical clips along the right chest wall. There is no demonstrated abnormality of the visualized soft tissue structures of the upper abdomen. RAD/Chest 1 View (Portable) IMPRESSION: No acute cardiopulmonary disease or major interval change. Electronically Signed: Shad Mccain DO at 21:12 EST ,
[2022-11-17 20:40] LABS: Absolute Lymphocyte Count 1.03 X10^3/uL (0.83-4.51); Absolute Neutrophil Count 2.4 X10^3/uL (2.0-7.7); Basophil# 0.05 X10^3/uL; Basophil% 1.2 % (0-1); Eosinophil# 0.21 X10^3/uL; Eosinophils% 5.2 % (0-5); Hematocrit 30.2 % (37-47); Hemoglobin 10.4 g/dL (12.0-15.0); Lymphocyte # 1.03 X10^3/ul (0.83-4.51); Lymphocyte % 25.6 % (19-41); Mean Corp Hgb Conc 34.4 g/dL (32-36); Mean Corpuscular Hgb 29.6 pg (27.0-32.0); Mean Platelet Vol. 9.1 fl (6.2-12.0); Monocyte# 0.29 X10^3/uL; Monocyte% 7.2 % (0-10); NRBC Flagged by Analyzer 0 % (0-5); Neutrophil # 2.43 X10^3/uL (2.7-7.7); Neutrophil % 60.6 % (47-70); Platelet Count 187 K/mm3 (150-450); RBC Distribution Width CV 12.2 % (11.6-14.6); RBC Distribution Width SD 38.5 fl (35.1-43.9); Red Blood Count 3.51 M/mm3 (4.2-5.4)
[2022-11-17 21:00] LABS: Anion Gap 7 (5-15); BUN 7 mg/dL (7-18); Calcium,Total 9.1 mg/dL (8.5-10.1); Chloride 94 mmol/L (98-107); EST Glomerular Filtration Rate 86 mL/min (>60); Est Glom Filt Rate - Afr Amer 104 mL/min (>60); Estimated Creatinine Clearance 32.77 ml/min; Glucose 108 mg/dL (74-106); Potassium 3.8 mmol/L (3.5-5.1); Sodium Level 128 mmol/L (136-145); Troponin-I HS 46 pg/mL (3.0-54.0)
--- NOTE | 2022-11-17 21:13 | EX.ED.DYSGE1 ---
HPI History of Present Illness Chief Complaint: Shortness of Breath Detail of Chief Complaint: Burning in chest, fluctuating blood pressure Informant: patient Narrative Narrative: Patient presents secondary to burning sensation in her chest that has been present since 2 PM this afternoon. She states that she has been having trouble keeping her blood pressure under control. She had to take extra hydralazine today. Around 2 PM she noted a burning sensation in her chest and she feels very weak. [facility] Medical History Arthritis Asthma Bilateral cataracts Breast cancer Bronchiectasis Chronic pain COPD (chronic obstructive pulmonary disease) Difficulty balancing DVT (deep venous thrombosis) Former smoker Generalized weakness GERD (gastroesophageal reflux disease) history of blood clot Hypertension Infection of kidney Kidney stones Knee pain Limb weakness Limb weakness Lymphedema Mass of right chest wall Migraines CISCO (obstructive sleep apnea) Osteoporosis Pneumonia Pulmonary embolism Pulmonary fibrosis Severe sepsis Shortness of breath Shoulder pain Spinal stenosis Thyroid disease Tumor of bladder neck Urinary retention UTI (urinary tract infection) Vitamin D deficiency Home Medications levothyroxine 50 mcg tablet 50 mcg PO DAILY 12/19/13 [History Last Taken 06/08/17] alprazolam 1 mg tablet 1 mg PO TID PRN PRN Anxiety 02/16/17 [History Last Taken 03/22/21 23:00] lidocaine 5 % topical ointment 35 g topical TID PRN Pain 03/11/18 [History Last Taken Unknown] cholecalciferol (vitamin D3) 25 mcg (1,000 unit) capsule 1,000 unit PO DAILY Check with primary doctor 04/12/19 [History Last Taken Unknown] fluticasone propionate 44 mcg/actuation HFA aerosol inhaler (Flovent HFA) 1 inh inhalation BID Check with primary doctor 04/12/19 [History Last Taken Unknown] hydrocodone 10 mg-acetaminophen 325 mg tablet 1 tab PO TID PRN Pain 03/24/21 [History Last Taken 06/16/22 22:00] ondansetron HCl 4 mg tablet (Zofran) 4 mg PO Q8H PRN nausea and vomiting #20 tabs 03/25/21 [Rx Last Taken Unknown] methylphenidate HCl 20 mg tablet 20 mg PO BID 02/14/22 [History Last Taken Unknown] nebivolol 5 mg tablet (Bystolic) 5 mg PO DAILY Check with primary doctor 02/14/22 [History Last Taken Unknown] omeprazole 20 mg capsule,delayed release 20 mg PO DAILY Check with primary doctor 02/14/22 [History Last Taken Unknown] pregabalin 150 mg capsule 150 mg PO TID Pain 02/14/22 [History Last Taken Unknown] tolterodine 4 mg capsule,extended release 24 hr 4 mg PO DAILY Check with primary doctor 02/14/22 [History Last Taken Unknown] albuterol sulfate 90 mcg/actuation aerosol inhaler 2 inh inhalation PRN PRN Shortness Of Breath 02/17/22 [History Last Taken Unknown] beclomethasone dipropionate 80 mcg/actuation HFA breath activated aerosol 2 inh inhalation BID Check with primary doctor 02/17/22 [History Last Taken Unknown] ondansetron 4 mg disintegrating tablet 4 mg PO Q6H PRN nausea and vomiting #10 tabs 06/17/22 [Rx Last Taken Unknown] cephalexin 500 mg capsule 500 mg PO Q6 #28 CAPSULES 08/28/22 [Rx Last Taken Unknown] lisinopril 5 mg tablet 5 mg PO DAILY #30 tabs 08/28/22 [Rx Last Taken Unknown] Allergy/AdvReac Type Severity Reaction Status Date / Time latex Allergy Mild Rash Verified 08/29/22 22:22 doxycycline Allergy Unknown weakness Verified 08/29/22 22:22 montelukast Allergy Unknown Rash Verified 08/29/22 22:22 Sulfa (Sulfonamide Allergy Hives Verified 08/29/22 22:22 Antibiotics) oxycodone [From Percocet] AdvReac Other Verified 08/29/22 22:22 Family History Mother Cancer gastric cancer at 93 Father Emphysema lung Heart disease Brother Heart disease Diabetes Surgical History H/O elbow surgery H/O knee surgery H/O right mastectomy History of appendectomy History of bladder suspension procedure History of cardiac catheterization History of cholecystectomy History of excision of mass History of hand surgery History of hysterectomy with bilateral oophorectomy History of spinal fusion Social History household members: spouse and other details: raising her great grandson current occupational status: retired Smoking Status: Former smoker quit date: 09/14/82 Tobacco: How many years used: 15 how long ago did patient quit smoking: smoked less than a pack per week for 15 years alcohol intake: never ROS ROS ED Constitutional Constitutional ED: Denies chills or fever(s) Eyes Eyes: Denies change in vision or discharge from eye(s) ENT ENT ED: Denies discharge from eye(s), rhinorrhea or sore throat Cardiovascular Cardiovascular: Reports chest pain; Denies palpitations Respiratory/Chest Respiratory/Chest: Reports dyspnea; Denies cough Gastrointestinal Gastrointestinal: Denies abdominal pain, diarrhea, nausea or vomiting Genitourinary Genitourinary ED: Denies difficulty urinating or dysuria Musculoskeletal Musculoskeletal: Denies back pain or extremity pain Integumentary Denies Abrasions or rash Neurologic Neurologic: Reports headache(s) and weakness Psychiatric Psychiatric: Denies anxiety or depression Allergic/Immunologic Allergic/Immunologic ED: Denies lip swelling or urticaria EXAM Physical Exam Const Vital Signs: 11/17/22 20:10 11/17/22 20:16 11/17/22 21:44 Temperature 97.5 F L 97.5 F L 98.2 F Temperature Source Oral Oral Temporal Pulse Rate 70 70 59 L Respiratory Rate 18 18 17 Respiratory Effort Blood Pressure 163/72 H 163/72 H 153/67 H Blood Pressure Mean 102 102 95 Pulse Ox 98 98 98 Oxygen Delivery Method Room Air Room Air Room Air 11/17/22 21:44 11/17/22 21:44 11/17/22 21:49 Temperature Temperature Source Pulse Rate Respiratory Rate Respiratory Effort Short of Breath Blood Pressure Blood Pressure Mean Pulse Ox 99 Oxygen Delivery Method Room Air Room Air Room Air 11/17/22 23:50 11/17/22 23:50 Temperature 98.2 F Temperature Source Temporal Pulse Rate 80 Respiratory Rate 15 Respiratory Effort Blood Pressure 134/74 H Blood Pressure Mean 94 Pulse Ox 97 98 Oxygen Delivery Method Room Air Room Air Positive well nourished and well developed General Appearance ED: well developed HEENT Reports normocephalic and head/scalp atraumatic Eyes PERRL and EOMs intact bilaterally Neck supple Chest Wall inspection of chest normal and palpation of chest normal Resp normal respiratory effort and clear to auscultation bilaterally Cardio regular rate and regular rhythm GI normal to inspection, nondistended, normoactive bowel sounds Palpation: soft Extremity normal to inspection Neuro oriented x3 and no sensory deficits noted Sensorium / Orientation: alert Motor Exam: strength 5/5 throughout Psych mental status grossly normal Skin no rashes or lesions noted MDM MDM MDM Narrative Medical decision making narrative: Patient is given Protonix along with a GI cocktail. She was given Tylenol for headache. Patient is placed on cardiac sonographer. EKG obtained to evaluate for cardiac ischemia/arrhythmia. Lab work obtained to evaluate for leukocytosis, anemia, electrolyte derangement. Troponin obtained x2 to evaluate for cardiac ischemia. D-dimer obtained to evaluate for possible DVT. Lab Data Attestation: I reviewed the patient's lab results. Labs: Laboratory Results - last 24 hr 11/17/22 11/17/22 11/17/22 20:30 20:30 21:58 WBC 4.0 L RBC 3.51 L Hgb 10.4 L Hct 30.2 L MCV 86.0 MCH 29.6 MCHC 34.4 RDW Std Deviation 38.5 RDW Coeff of Mahi 12.2 Plt Count 187 MPV 9.1 Immature Gran % (Auto) 0.200 Neut % (Auto) 60.6 Lymph % (Auto) 25.6 Terrell % (Auto) 7.2 Eos % (Auto) 5.2 H Baso % (Auto) 1.2 H Absolute Neuts (auto) 2.4 Absolute Lymphs (auto) 1.03 Nucleated RBC % 0 D-Dimer Quant (PE/DVT) 0.88 H* Sodium 128 L Potassium 3.8 Chloride 94 L Carbon Dioxide 27.0 Anion Gap 7 BUN 7 Creatinine 0.70 Estim Creat Clear Calc 32.77 Est GFR (MDRD) Af Amer 104 Est GFR (MDRD) Non-Af 86 BUN/Creatinine Ratio 10.0 Glucose 108 H Calcium 9.1 Troponin I High Sens 46 11/17/22 21:58 WBC RBC Hgb Hct MCV MCH MCHC RDW Std Deviation RDW Coeff of Mahi Plt Count MPV Immature Gran % (Auto) Neut % (Auto) Lymph % (Auto) Terrell % (Auto) Eos % (Auto) Baso % (Auto) Absolute Neuts (auto) Absolute Lymphs (auto) Nucleated RBC % D-Dimer Quant (PE/DVT) Sodium Potassium Chloride Carbon Dioxide Anion Gap BUN Creatinine Estim Creat Clear Calc Est GFR (MDRD) Af Amer Est GFR (MDRD) Non-Af BUN/Creatinine Ratio Glucose Calcium Troponin I High Sens 42 Radiography Diagnostic Testing: Clinical Impression(s) from Imaging Studies Chest X-Ray 11/17/22 20:37 IMPRESSION: No acute cardiopulmonary disease or major interval change. Electronically Signed: Shad Mccain DO at 21:12 EST Reading Location ID and State: [address] [place] [address] Tel [phone], Service support , Chest CTA 11/17/22 22:30 IMPRESSION: 1. No evidence of pulmonary embolus. 2. No aortic dissection or aneurysm. 3. No acute pulmonary disease. 4. Status post right mastectomy with axillary node dissection. AIDOC was utilized to assist in identifying pertinent positive findings in this case. Electronically Signed: Shad Mccain DO at 23:46 EST Reading Location ID and State: [address] [place] [address] Tel [phone], Service support , EKG Initial EKG: Attestation: I personally reviewed and interpreted this EKG as follows: Interpretation: Sinus Rhythm (Sinus at 65 with no acute ischemia.) Differential Diagnosis Chest pain/SOB: pulmonary embolism Reason(s) PE less likely: Positive for Other (No evidence of PE on CTA.), ACS ACS: Positive for no evidence of ACS based on cardiac biomarkers and EKG without ischemia, pneumonia Reason(s) pneumonia less likely: Positive for no infiltrate on CXR and no elevation in WBC count and aortic dissection Reason(s) Aortic dissection less likely:: Positive for normal vascular exam, normal neurological exam and other (No dissection noted on CTA chest.) Treatment and Re-Evaluation :: Repeat evaluation patient sleeping comfortably. Blood pressures been stable while in the emergency room. EKG is sinus at 65 with no acute ischemia. Chest x-ray per my interpretation was chronic changes with no acute findings. Radiology interpretation is reviewed. CBC reveals low white count at 4.0. Hemoglobin is 10.4. Chemistry studies reveal a sodium of 128. It appears her baseline sodium is between 130 and 132. Potassium is normal at 3.8. Renal function is normal. Troponin is normal at 46 with repeat of 42. D-dimer is 0.88. In light of the elevated D-dimer CTA of the chest is obtained. This reveals no evidence of PE or dissection. Patient is reassured with these findings here. 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 Return instructions been provided. Discharge Plan Triage Chief Complaint: Shortness of Breath ED Provider: Devi Fortune Dx/Rx/DC Orders Clinical Impression: Chest pain Instructions: ED Chest Pain, Uncertain Cause Prescriptions: No Action Flovent HFA 44 mcg/actuation HFA aerosol inhaler 1 inh INHALATION BID cholecalciferol (vitamin D3) 1,000 unit capsule 1,000 unit capsule 1,000 unit PO DAILY methylphenidate HCl 20 mg tablet 20 mg PO BID nebivolol [Bystolic] 5 mg tablet 5 mg PO DAILY omeprazole 20 mg capsule,delayed release(DR/EC) 20 mg PO DAILY tolterodine 4 mg capsule,extended release 24hr 4 mg PO DAILY Hold Instructions: Resume on 05/24/22. 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 Label Comments: TAKE 1 TABLET BY MOUTH THREE TIMES DAILY NEEDED For PAIN ondansetron HCl [Zofran] 4 mg tablet 4 mg PO Q8H PRN (Reason: nausea and vomiting) Qty: 20 0RF pregabalin 150 mg capsule 150 mg PO TID Label Comments: TAKE 1 TABLET BY MOUTH THREE TIMES DAILY ondansetron 4 mg tablet,disintegrating 4 mg PO Q6H PRN (Reason: nausea and vomiting) Qty: 10 0RF cephalexin [cephalexin] 500 mg capsule 500 mg PO Q6 Qty: 28 0RF lisinopril 5 mg tablet 5 mg PO DAILY Qty: 30 0RF Primary Care Provider: Ronaldo Ruiz Referrals: Ronaldo Ruiz, [Primary Care Provider] - 3-5 Days if not improving Disposition Disposition: Home, Self Care
[2022-11-17 21:44] VITALS: BP 153/67; PULSE 59; RESP 17; TEMP 36.8; O2SAT 98; O2SAT 99
[2022-11-17 21:49] VITALS: O2SAT 99
[2022-11-17] MEDS: Acetaminophen 325 MG Tablet 650 MG PO (22:02)
[2022-11-17] MEDS: Mag Hydrox/Al Hydrox/Simeth 30 ML UDC PO (22:03)
[2022-11-17 22:27] LABS: D-Dimer Quantitative (DVT/PE) 0.88 FEU/ug/m (0.27-0.49)
--- NOTE | 2022-11-17 22:30 | CT_ITS ---
STUDY: CTA CHEST REASON FOR EXAM: Female, 77 years old. Tortuous of breath. Elevated d-dimer. Chest pressure for one day. RADIATION DOSAGE (If Supplied By Facility): CTDIvol = ( 10.78 ) mGy, DLP = ( 315.01 ) mGycm TECHNIQUE: The examination was performed with the intravenous administration of IV 100mL [id number]. Post-processing of the angiographic images was performed, with multiplanar reformation and 3D reconstruction. Individualized dose optimization techniques were used for this CT. COMPARISON: Chest, November 17, 2022. CT of the chest, June 21, 2016. FINDINGS: Normal enhancement of the main pulmonary artery and right and left pulmonary arteries. Normal enhancement of the bilateral peripheral pulmonary arteries. There is no demonstrated pulmonary embolism. Atherosclerotic changes of the thoracic aorta without aneurysm. There is no demonstrated aortic dissection. Normal heart and pericardium. Normal mediastinum. Normal hilar regions. Normal visualized trachea and bronchi. The lungs are well expanded. Normal pulmonary parenchyma. Normal pleura. Normal chest wall structures. Status post right mastectomy. There is stranding extending into the right axilla with evidence of dissection. Chest wall structures are otherwise unremarkable. Normal osseous structures. Normal visualized upper abdomen. CT/CTA Chest W/WO Contrast IMPRESSION: 1. No evidence of pulmonary embolus. 2. No aortic dissection or aneurysm. 3. No acute pulmonary disease. 4. Status post right mastectomy with axillary node dissection. AIDOC was utilized to assist in identifying pertinent positive findings in this case. Electronically Signed: Shad Mccain DO at 23:46 EST Reading Location ID and State: [address] [place] [address] Tel [phone], Service support ,
[2022-11-17 22:36] LABS: Troponin-I HS 42 pg/mL (3.0-54.0)
[2022-11-17 23:50] VITALS: BP 134/74; PULSE 80; RESP 15; TEMP 36.8; O2SAT 97; O2SAT 98
[2022-11-18 00:34] VITALS: BP 136/63; PULSE 57; RESP 16; TEMP 36.5; O2SAT 93; O2SAT 99
== END 2022-11-18 00:48 | disposition home or self-care (01) ==
PROVIDERS: Emergency Provider Emergency Medicine; PCP Family Medicine; Visit Provider Emergency Medicine
DX: R07.9 Chest pain, unspecified (principal); I10 Essential (primary) hypertension; Z79.899 Other long term (current) drug therapy; Z87.891 Personal history of nicotine dependence
CPT/HCPCS: 71045; 71275; 80048; 84484; 85025; 85379; 93005; 96365; 96366; 99284; Q9967; A4216

== ENCOUNTER 2023-01-28 09:30 | Outpatient (RCR) | payer MEDICARE, OTHER, SELFPAY ==
[2023-01-14 10:27] VITALS: BP 130/54; PULSE 51; RESP 18; TEMP 36.1; BMI 61.0
--- NOTE | 2023-01-14 12:30 | PCM.WC.HP ---
History of Present Illness Date of Service: 01/14/23 Chief Complaint: Traumatic wound of left lower extremity History of Wound: This 77year-old female presents with a history of trauma to her left anterior tibial region from dropping a 2 quart pot on her leg. The patient has been cleaning her wound daily and applying Vaseline ointment. [facility] Medical History Arthritis Asthma Bilateral cataracts Breast cancer Bronchiectasis Chronic pain COPD (chronic obstructive pulmonary disease) Difficulty balancing DVT (deep venous thrombosis) Former smoker Generalized weakness GERD (gastroesophageal reflux disease) history of blood clot Hypertension Infection of kidney Kidney stones Knee pain Limb weakness Limb weakness Lymphedema Mass of right chest wall Migraines CISCO (obstructive sleep apnea) Osteoporosis Pneumonia Pulmonary embolism Pulmonary fibrosis Severe sepsis Shortness of breath Shoulder pain Spinal stenosis Thyroid disease Tumor of bladder neck Urinary retention UTI (urinary tract infection) Vitamin D deficiency Home Medications levothyroxine 50 mcg tablet 50 mcg PO DAILY 12/19/13 [History Last Taken 06/08/17] alprazolam 1 mg tablet 1 mg PO TID PRN PRN Anxiety 02/16/17 [History Last Taken 03/22/21 23:00] lidocaine 5 % topical ointment 35 g topical TID PRN Pain 03/11/18 [History Last Taken Unknown] cholecalciferol (vitamin D3) 25 mcg (1,000 unit) capsule 1,000 unit PO DAILY Check with primary doctor 04/12/19 [History Last Taken Unknown] fluticasone propionate 44 mcg/actuation HFA aerosol inhaler (Flovent HFA) 1 inh inhalation BID Check with primary doctor 04/12/19 [History Last Taken Unknown] hydrocodone 10 mg-acetaminophen 325 mg tablet 1 tab PO TID PRN Pain 03/24/21 [History Last Taken 06/16/22 22:00] ondansetron HCl 4 mg tablet (Zofran) 4 mg PO Q8H PRN nausea and vomiting #20 tabs 03/25/21 [Rx Last Taken Unknown] methylphenidate HCl 20 mg tablet 20 mg PO BID 02/14/22 [History Last Taken Unknown] nebivolol 5 mg tablet (Bystolic) 5 mg PO DAILY Check with primary doctor 02/14/22 [History Last Taken Unknown] omeprazole 20 mg capsule,delayed release 20 mg PO DAILY Check with primary doctor 02/14/22 [History Last Taken Unknown] pregabalin 150 mg capsule 150 mg PO TID Pain 02/14/22 [History Last Taken Unknown] tolterodine 4 mg capsule,extended release 24 hr 4 mg PO DAILY Check with primary doctor 02/14/22 [History Last Taken Unknown] albuterol sulfate 90 mcg/actuation aerosol inhaler 2 inh inhalation PRN PRN Shortness Of Breath 02/17/22 [History Last Taken Unknown] beclomethasone dipropionate 80 mcg/actuation HFA breath activated aerosol 2 inh inhalation BID Check with primary doctor 02/17/22 [History Last Taken Unknown] ondansetron 4 mg disintegrating tablet 4 mg PO Q6H PRN nausea and vomiting #10 tabs 06/17/22 [Rx Last Taken Unknown] cephalexin 500 mg capsule 500 mg PO Q6 #28 CAPSULES 08/28/22 [Rx Last Taken Unknown] lisinopril 5 mg tablet 5 mg PO DAILY #30 tabs 08/28/22 [Rx Last Taken Unknown] Allergy/AdvReac Type Severity Reaction Status Date / Time latex Allergy Mild Rash Verified 01/06/23 15:10 doxycycline Allergy Unknown weakness Verified 01/06/23 15:10 montelukast Allergy Unknown Rash Verified 01/06/23 15:10 Sulfa (Sulfonamide Allergy Hives Verified 01/06/23 15:10 Antibiotics) oxycodone [From Percocet] AdvReac Other Verified 01/06/23 15:10 Family History Mother Cancer gastric cancer at 93 Father Emphysema lung Heart disease Brother Heart disease Diabetes Surgical History H/O elbow surgery H/O knee surgery H/O right mastectomy History of appendectomy History of bladder suspension procedure History of cardiac catheterization History of cholecystectomy History of excision of mass History of hand surgery History of hysterectomy with bilateral oophorectomy History of spinal fusion Social History household members: spouse and other details: raising her great grandson current occupational status: retired Smoking Status: Never smoker Tobacco: How many years used: 15 how long ago did patient quit smoking: smoked less than a pack per week for 15 years alcohol intake: never ROS Constitutional Constitutional: Reports systems reviewed and no addt'l complaints, except as documented Eyes Eyes: Reports systems reviewed and no addt'l complaints, except as documented ENT HEENT: Reports systems reviewed and no addt'l complaints, except as documented Cardiovascular Cardiovascular: Reports systems reviewed and no addt'l complaints, except as documented Respiratory/Chest Respiratory/Chest: Reports systems reviewed and no addt'l complaints, except as documented Gastrointestinal Gastrointestinal: Reports systems reviewed and no addt'l complaints, except as documented Genitourinary Genitourinary: Reports systems reviewed and no addt'l complaints, except as documented Musculoskeletal Musculoskeletal: Reports systems reviewed and no addt'l complaints, except as documented Integumentary Integumentary: Reports wounds and other Details: Left lower leg burr superficial partial avulsions laceration. Superficial in depth no sign of infection noted. Neurologic Neurologic: Reports systems reviewed and no addt'l complaints, except as documented Psychiatric Psychiatric: Reports systems reviewed and no addt'l complaints, except as documented Endocrine Endocrinology: Reports systems reviewed and no addt'l complaints, except as documented Hematologic/Lymphatic Hematologic/Lymphatic: Reports systems reviewed and no addt'l complaints, except as documented Allergic/Immunologic Allergic/Immunologic: Reports systems reviewed and no addt'l complaints, except as documented Vital Signs Vital Signs Vital Signs: 01/14/23 10:27 Temperature 97 F L Temperature Source Temporal Pulse Rate 51 L Respiratory Rate 18 Blood Pressure 130/54 H Blood Pressure Mean 79 Blood Pressure Source Monitor Blood Pressure Position Semi-Fowlers Blood Pressure Location Left Arm Weight Weight: 302 lb 0.533 oz Body Mass Index (BMI) 61.0 Debridement Note Debridement Note Post-Debridement Measurements and Additional Note: Post-Debridement Measurements/Treatment - Nurse 1 - General Ulcer Assessment Start: 01/14/23 10:26 Freq: Status: Active Protocol: MEENA Activity Type Activity Date Activity User E-sign Co-sign Detail Recorded Client Recorded Date Recorded By Document 01/14/23 10:27 RB [id number] 01/14/23 10:46 RB 01/14/23 10:27 - Today's Visit Information Type of service Initial Visit Arrival Mode Ambulatory Transfer Assistance None Patient Identification Verified (Name & Yes ) Patient Requires Transmission-Based No Precautions Height and Weight Height 4 ft 11 in Weight 302 lb 0.533 oz Weight in Pounds 302.0 lbs Body Mass Index (BMI) 61.0 BMI Classification Obese BSA - Luther 2.20 Vital Signs Temperature (97.8 F-99.1 F) 97 F L Temperature Source Temporal Pulse Rate (60-100) 51 L Pulse Location Monitor Respiratory Rate (12-18) 18 Respiratory rate source Observation Blood Pressure (90/60-120/80) 130/54 H Blood Pressure Mean 79 Source Monitor Position Semi-Fowlers Blood Pressure Location Left Arm History Since Last Visit- (Skip if this is Patient's initial visit) Have you changed medications since your No last visit? Any new allergies or adverse reactions No Had a fall/change in ADL's that may No increase risk of falls Signs or symptoms of abuse and/or No neglect since last visit Have you been in the hospital since your No last visit? Has dressing in place as prescribed Yes Has compression in place as prescribed Yes Has offloadiing in place as prescribed No Experienced any changes in pain level or No management Pain Scale: 0-10 Numeric Is Patient Pain Free? Yes Lower Extremity Assessment/ Foot Assessment/ Toe Nail Assessment Right -Posterior Tibial Palpable Yes -Dorsalis Pedis Palpable Yes -Extremity Color Normal -Hair Growth on Legs Yes -Hair Growth on Toes No -Temperature of Extremity Cool -Capillary Refill Less than 3 Seconds -Dependent Rubor No -Blanched when Elevated No -Lipodermatosclerosis No -Other Deformity No -Prior Foot Ulcer No -Charcot Joint No -Prior Amputation No -Thick Yes -Discolored Yes -Deformed Yes -Improper Length & Hygeine Yes Left -Posterior Tibial Palpable Yes -Dorsalis Pedis Palpable Yes -Extremity Color Normal -Hair Growth on Legs Yes -Hair Growth on Toes No -Temperature of Extremity Warm -Capillary Refill Less than 3 Seconds -Dependent Rubor No -Blanched when Elevated No -Lipodermatosclerosis No -Other Deformity No -Prior Foot Ulcer No -Charcot Joint No -Prior Amputation No -Thick Yes -Discolored Yes -Deformed Yes -Improper Length & Hygeine Yes Neuropathy Assessment Feet - Top Side and Bottom <Entered> (a) Communication Assessment Preferred language Malay Mainframe Consultant Required No Able to Read Yes Able to Write Yes Communication Tools None Caregiver Communication Skills No Impairment Impairment Right Hearing Abillity Normal Left Hearing Abillity Normal Visual Assistive Devices Glasses Teaching Assessment Preferences Verbal,Written Barriers to Learning None Readiness To Learn Good Willingness to Engage in Self Management Med Activies Readiness to Engage in Self Management Med Activities Anxiety Level Calm Cooperation Cooperative Perception Coherent Interest in Health Problem Asks Questions Education Importance Acknowledges Need Does Patient Smoke tobacco or other No substances Smoking Status Never smoker Functional Assessment Recent Decline in Ability to Perform Denies Any Declines Culture/Pentecostalism/Web Content Specialist Cultural/Pentecostalism Needs that may affect No Treatment Plan Would you allow our hospital rotary shear cutter to No meet you for the purpose of spiritual/ emotional support? Web Content Specialist to contact place of yarsani No Teaching: Wound Center *Welcome to the Wound Center -Person Taught Patient -Teaching Method Discussion, Demonstration -Response to teaching Verbalize understanding (a) 1 - + throughout WC - Nurse 1 - General Ulcer Measurement Start: 01/14/23 10:26 Freq: Status: Active Protocol: Activity Type Activity Date Activity User E-sign Co-sign Detail Recorded Client Recorded Date Recorded By Document 01/14/23 10:27 [email or web address] [id number] 01/14/23 10:46 RB 01/14/23 10:27 Wound Center Nurse 1 2. LLE (left burr) -Combined with other wound No -Current Size (cm) - Length 0.5 -Current Size (cm) - Width 1 -Current Size (cm) - Depth 0.1 -Total Square Cm 0.5 -Photo Taken Yes -Tunneling No -Undermining/Tunneling No -Circular Undermining No -Exudate Amt Medium -Exudate Type Serosanguineous -Wound Margin Distinct, Outline Attached -Granulation Amt Medium (34-66%) -Granulation Quality [place] -Slough/Fibrin Yes -Necrosis Amt Medium (34-66%) -Necrotic Tissue Type Adherent Slough -Structure Exposed N/A -Texture (Sharee-wound Skin Appearance) Assessed -Moisture (Sharee-wound Skin Appearance) Assessed -Color (Sharee-wound Skin Appearance) Assessed -Temperature (Sharee-wound Skin No Abnormality Appearance) (Pt Warm) -Tenderness on Palpation (Sharee-wound No Skin Appearance) -Ulcer Cleansing Wound Cleanser -Foul Odor after Cleansing No -Anesthetic Used 5% Lidocaine Gel Lower Limb Edema Present Yes Right Calf (cm) 37 Right Ankle (cm) 21 Left Calf (cm) 35.5 Left Ankle (cm) 21 - Nurse 2 - General Ulcer CM Notes Start: 01/14/23 10:26 Freq: Status: Active Protocol: Activity Type Activity Date Activity User E-sign Co-sign Detail Recorded Client Recorded Date Recorded By Document 01/14/23 11:02 MW [id number] 01/14/23 11:07 MW 01/14/23 11:02 Wound Center Nurse 2 2. LLE (left burr) -Time 11:03 -Correct Patient Yes -Correct Side, Site, Position Yes -Correct Procedure Yes -Procedure Performed Yes -Type of Procedure Debridement -Clinical Debridement Subcutaneous -Tissue Removed Subcutaneous -Post Debridement (cm) - Length 0.5 -Post Debridement (cm) - Width 1.4 -Post Debridement (cm) - Depth 0.1 -Total Square (Post) (cm) 0.70 -Area of Debridement (cm) - Length 0.5 -Area of Debridement (cm) - Width 1.4 -Total Square (Area) (cm) 0.70 -Tunneling No -Circular Undermining No -Wound/Ulcer Outcome Not Healed -Ulcer Cleansing Rinsed/ Irrigated with Saline -Foul Odor after Cleansing No -Bioengineered Tissue No -Bleeding Controlled with Pressure -Treatment Response Procedure Tolerated Well -Offloading No -Debridement - Subq, 1st 20sq cm Yes Pain Scale: 0-10 Numeric Is Patient Pain Free? Yes - Nurse 3 - General Ulcer D/C NN Start: 01/14/23 10:26 Freq: Status: Active Protocol: Activity Type Activity Date Activity User E-sign Co-sign Detail Recorded Client Recorded Date Recorded By Document 01/14/23 11:18 MW [id number] 01/14/23 11:20 MW 01/14/23 11:18 Wound Care Center Nurse 3 2. LLE (left burr) -Ulcer Cleansing Rinsed/ Irrigated with Saline -Foul Odor after Cleansing No -Negative Pressure Wound Therapy N/A -Primary Dressing Applied Aquacel Extra, NonAdherent Contact Layer -Primary Dressing Covered/Secured with Dry Gauze & Roll Gauze, Secured with Tape -Aquacel Extra 1 Treatment Response Procedure Tolerated Well Pain Scale: 0-10 Numeric Is Patient Pain Free? Yes Teaching: Wound Center Dressing Your Wound -Person Taught Patient -Teaching Method Discussion -Response to teaching Verbalize understanding WC - Visit Discharge Discharge Condition Stable Ambulatory Status Ambulatory Transportation Private Auto Accompanied by self Medication Reconcilliation completed & No provided to patient/care provider Clinical Summary of Care Provided Yes Assessment/Plan Assessment/Plan (1) Wound of right leg: CODE(S): S81.801A - Unspecified open wound, right lower leg, initial encounter PLAN: Wash right lower leg with antibacterial soap and water pat dry Apply Aquacel extra to wound base moistened with Adaptic over top Dry dressing and tape Double layer Tubigrip Follow-up in 1 week (2) Nonhealing nonsurgical wound limited to breakdown of skin: CODE(S): T14.8XXA - Other injury of unspecified body region, initial encounter
[2023-01-21 09:23] VITALS: BP 105/51; PULSE 57; RESP 16; TEMP 36.1; BMI 61.0
--- NOTE | 2023-01-21 11:18 | PCM.WC.PN ---
History of Present Illness Date of Service: 01/21/23 Chief Complaint: Traumatic wound of left lower extremity History of Wound: This 77year-old female presents with a history of trauma to her left anterior tibial region from dropping a 2 quart pot on her leg. The patient has been cleaning her wound daily and applying Vaseline ointment. Progress of Wound: The area is measuring smaller no sign of infection. Using Aquacel extra with Adaptic over top seems to be working well Subjective Subjective Patient is happy with outcomes Objective Data Objective Data We will continue using the Aquacel extra and apply for EpiFix Vital Signs: Vital Signs Temp Pulse Resp BP O2 Del Method 97 F L 57 L 16 105/51 L Room Air 01/21/23 09:23 01/21/23 09:23 01/21/23 09:23 01/21/23 09:23 01/21/23 09:23 Oxygen Delivery Method Room Air Weight: 302 lb 0.533 oz Body Mass Index (BMI) 61.0 Lab / Micro Data Attestation: I reviewed the patient's lab results. Physical Exam Const oriented x3 General Appearance: cooperative Exam Limitations: no limitations Eyes PERRL General Eye: normal appearance of both eyes Neck full ROM General: normal visual inspection Resp normal respiratory effort Effort and Inspection: able to speak in complete sentences Auscultation: clear to auscultation bilaterally Cardio regular rate and regular rhythm Palpation: normal PMI Rate: regular rate Rhythm: regular rhythm GI Auscultation: normoactive bowel sounds Palpation: soft and no hepatosplenomegaly external exam normal Extremity normal to inspection General Extremity: normal exam except as noted Skin Skin Narrative: Open traumatic wound on left lower leg with depth. Wounds: wounds noted Neuro oriented x3 Psych Appearance: grossly normal Speech: normal speech Thought Content: normal thought content Judgement: judgement good Debridement Note Debridement Note Wound debrided: Left lower leg traumatic nonhealing wound Type of Debridement: Excisional debridement Anesthesia Used: 5% Lidocaine Gel Depth: in the subcutaneous layer Percentage of wound debrided: 100 Instrument Used: 3mm curette Tissue Removed: Devitalized tissue and slough fibrin Severity: Fat Layer Exposed Amount of bleeding with debridement: Mild Bleeding Controlled with: Compression and gauze Patient tolerated procedure: Patient tolerated procedure well Post-Debridement Measurements and Additional Note: Post-Debridement Measurements/Treatment WC - Nurse 1 - General Ulcer Assessment Start: 01/14/23 10:26 Freq: Status: Active Protocol: WC.LOWEXT Activity Type Activity Date Activity User E-sign Co-sign Detail Recorded Client Recorded Date Recorded By Document 01/14/23 10:27 RB [id number] 01/14/23 10:46 RB Document 01/21/23 09:23 [facility] [id number] 01/21/23 09:31 [facility] 01/14/23 01/21/23 10:27 09:23 WC - Today's Visit Information Type of service Initial Visit Follow-up Visit (Physician/MANAGER AVIATION ) Arrival Mode Ambulatory Ambulatory Transfer Assistance None None Accompanied by [facility] IN [facility] Patient Identification Verified (Name & Yes Yes ) Patient Requires Transmission-Based No No Precautions Height and Weight Height 4 ft 11 in Weight 302 lb 0.533 oz Weight in Pounds 302.0 lbs Body Mass Index (BMI) 61.0 61.0 BMI Classification Obese Obese BSA - Luther 2.20 Vital Signs Temperature (97.8 F-99.1 F) 97 F L 97 F L Temperature Source Temporal Temporal Pulse Rate (60-100) 51 L 57 L Pulse Location Monitor Monitor Respiratory Rate (12-18) 18 16 Respiratory rate source Observation Observation Oxygen Delivery Method Room Air Blood Pressure (90/60-120/80) 130/54 H 105/51 L Blood Pressure Mean (mm Hg) 79 69 Source Monitor Monitor Position Semi-Fowlers Sitting Blood Pressure Location Left Arm Left Arm History Since Last Visit- (Skip if this is Patient's initial visit) Have you changed medications since your No No last visit? Any new allergies or adverse reactions No No Had a fall/change in ADL's that may No No increase risk of falls Signs or symptoms of abuse and/or No No neglect since last visit Have you been in the hospital since your No No last visit? Has dressing in place as prescribed Yes Yes Has compression in place as prescribed Yes Yes Has offloadiing in place as prescribed No N/A Experienced any changes in pain level or No No management Left Footwear Regular Shoe Right Footwear Regular Shoe Pain Scale: 0-10 Numeric Is Patient Pain Free? Yes Yes Lower Extremity Assessment/ Foot Assessment/ Toe Nail Assessment Right -Posterior Tibial Palpable Yes -Dorsalis Pedis Palpable Yes -Extremity Color Normal -Hair Growth on Legs Yes -Hair Growth on Toes No -Temperature of Extremity Cool -Capillary Refill Less than 3 Seconds -Dependent Rubor No -Blanched when Elevated No -Lipodermatosclerosis No -Other Deformity No -Prior Foot Ulcer No -Charcot Joint No -Prior Amputation No -Thick Yes -Discolored Yes -Deformed Yes -Improper Length & Hygeine Yes Left -Posterior Tibial Palpable Yes -Dorsalis Pedis Palpable Yes -Extremity Color Normal -Hair Growth on Legs Yes -Hair Growth on Toes No -Temperature of Extremity Warm -Capillary Refill Less than 3 Seconds -Dependent Rubor No -Blanched when Elevated No -Lipodermatosclerosis No -Other Deformity No -Prior Foot Ulcer No -Charcot Joint No -Prior Amputation No -Thick Yes -Discolored Yes -Deformed Yes -Improper Length & Hygeine Yes Neuropathy Assessment Feet - Top Side and Bottom <Entered> (a) Communication Assessment Preferred language French Labor And Delivery Nurse Required No Able to Read Yes Able to Write Yes Communication Tools None Caregiver Communication Skills No Impairment Impairment Right Hearing Abillity Normal Left Hearing Abillity Normal Visual Assistive Devices Glasses Teaching Assessment Preferences Verbal,Written Barriers to Learning None Readiness To Learn Good Willingness to Engage in Self Management Med Activies Readiness to Engage in Self Management Med Activities Anxiety Level Calm Cooperation Cooperative Perception Coherent Interest in Health Problem Asks Questions Education Importance Acknowledges Need Does Patient Smoke tobacco or other No substances Smoking Status Never smoker Functional Assessment Recent Decline in Ability to Perform Denies Any Declines Culture/Advent/Solutions Developer Cultural/Advent Needs that may affect No Treatment Plan Would you allow our hospital police detective to No meet you for the purpose of spiritual/ emotional support? Solutions Developer to contact place of advent No Teaching: Wound Center *Welcome to the Wound Center -Person Taught Patient -Teaching Method Discussion, Demonstration -Response to teaching Verbalize understanding (a) 1 - + throughout WC - Nurse 1 - General Ulcer Measurement Start: 01/14/23 10:26 Freq: Status: Active Protocol: Activity Type Activity Date Activity User E-sign Co-sign Detail Recorded Client Recorded Date Recorded By Document 01/14/23 10:27 RB [id number] 01/14/23 10:46 RB Document 01/21/23 09:23 [facility] [id number] 01/21/23 09:31 BMF 01/14/23 01/21/23 10:27 09:23 Wound Center Nurse 1 2. LLE (left burr) -Combined with other wound No No -Current Size (cm) - Length 0.5 0.5 -Current Size (cm) - Width 1 0.9 -Current Size (cm) - Depth 0.1 0.1 -Total Square Cm 0.5 0.45 -Date of Last Picture (Recall this 01/21/23 field) -Photo Taken Yes Yes -Epithelialization Small 1-33% -Tunneling No No -Undermining/Tunneling No No -Circular Undermining No No -Exudate Amt Medium Small -Exudate Type Serosanguineous Serosanguineous -Wound Margin Distinct, Flat & Intact Outline Attached -Granulation Amt Medium (34-66%) Large (67-100%) -Granulation Quality [place] Red -Slough/Fibrin Yes No -Necrosis Amt Medium (34-66%) None Present (0 %) -Necrotic Tissue Type Adherent Slough -Structure Exposed N/A -Texture (Sharee-wound Skin Appearance) Assessed Assessed, Scarring -Moisture (Sharee-wound Skin Appearance) Assessed Assessed -Color (Sharee-wound Skin Appearance) Assessed Assessed -Temperature (Sharee-wound Skin No Abnormality No Abnormality Appearance) (Pt Warm) (Pt Warm) -Tenderness on Palpation (Sharee-wound No No Skin Appearance) -Ulcer Cleansing Wound Cleanser Rinsed/ Irrigated with Saline -Foul Odor after Cleansing No No -Anesthetic Used 5% Lidocaine 5% Lidocaine Gel Gel Lower Limb Edema Present Yes Yes Right Calf (cm) 37 Right Ankle (cm) 21 Left Calf (cm) 35.5 37.5 Left Ankle (cm) 21 20.9 WC - Nurse 2 - General Ulcer CM Notes Start: 01/14/23 10:26 Freq: Status: Active Protocol: Activity Type Activity Date Activity User E-sign Co-sign Detail Recorded Client Recorded Date Recorded By Document 01/14/23 11:02 MW [id number] 01/14/23 11:07 MW Document 01/21/23 09:48 MW [id number] 01/21/23 09:51 MW 01/14/23 01/21/23 11:02 09:48 Wound Center Nurse 2 2. LLE (left burr) -Time 11:03 09:49 -Correct Patient Yes Yes -Correct Side, Site, Position Yes Yes -Correct Procedure Yes Yes -Procedure Performed Yes Yes -Type of Procedure Debridement Debridement -Clinical Debridement Subcutaneous Subcutaneous -Tissue Removed Subcutaneous Subcutaneous -Post Debridement (cm) - Length 0.5 0.4 -Post Debridement (cm) - Width 1.4 0.8 -Post Debridement (cm) - Depth 0.1 0.1 -Total Square (Post) (cm) 0.70 0.32 -Area of Debridement (cm) - Length 0.5 0.4 -Area of Debridement (cm) - Width 1.4 0.8 -Total Square (Area) (cm) 0.70 0.32 -Tunneling No No -Undermining/Tunneling No -Circular Undermining No No -Wound/Ulcer Outcome Not Healed Not Healed -Ulcer Cleansing Rinsed/ Rinsed/ Irrigated with Irrigated with Saline Saline -Foul Odor after Cleansing No No -Bioengineered Tissue No No -Bleeding Controlled with Pressure Pressure -Treatment Response Procedure Procedure Tolerated Well Tolerated Well -Offloading No No -Debridement - Subq, 1st 20sq cm Yes Yes Pain Scale: 0-10 Numeric Is Patient Pain Free? Yes Yes WC - Nurse 3 - General Ulcer D/C NN Start: 01/14/23 10:26 Freq: Status: Active Protocol: Activity Type Activity Date Activity User E-sign Co-sign Detail Recorded Client Recorded Date Recorded By Document 01/14/23 11:18 MW [id number] 01/14/23 11:20 MW Document 01/21/23 09:57 MW [id number] 01/21/23 09:57 MW 01/14/23 01/21/23 11:18 09:57 Wound Care Center Nurse 3 2. LLE (left burr) -Ulcer Cleansing Rinsed/ Rinsed/ Irrigated with Irrigated with Saline Saline -Foul Odor after Cleansing No No -Negative Pressure Wound Therapy N/A N/A -Primary Dressing Applied Aquacel Extra, Aquacel Extra, NonAdherent NonAdherent Contact Layer Contact Layer -Primary Dressing Covered/Secured with Dry Gauze & Dry Gauze & Roll Gauze, Roll Gauze, Secured with Secured with Tape Tape -Aquacel Extra 1 1 Treatment Response Procedure Procedure Tolerated Well Tolerated Well Pain Scale: 0-10 Numeric Is Patient Pain Free? Yes Yes Teaching: Wound Center Dressing Your Wound -Person Taught Patient Patient -Teaching Method Discussion Discussion, Demonstration -Response to teaching Verbalize Verbalize understanding understanding WC - Visit Discharge Discharge Condition Stable Stable Ambulatory Status Ambulatory Ambulatory Transportation Private Auto Private Auto Accompanied by self self Medication Reconcilliation completed & No No provided to patient/care provider Clinical Summary of Care Provided Yes Yes Assessment/Plan Assessment/Plan (1) Wound of right leg: CODE(S): S81.801A - Unspecified open wound, right lower leg, initial encounter PLAN: Wash right lower leg with antibacterial soap and water pat dry Apply Aquacel extra to wound base moistened with Adaptic over top Dry dressing and tape Double layer Tubigrip Applying for epi fix Follow-up in 1 week (2) Nonhealing nonsurgical wound limited to breakdown of skin: CODE(S): T14.8XXA - Other injury of unspecified body region, initial encounter (3) Edema of left lower leg: CODE(S): R60.0 - Localized edema
[2023-01-28 09:44] VITALS: BP 142/62; PULSE 64; RESP 18; TEMP 36.1; BMI 61.0
--- NOTE | 2023-01-28 09:54 | PCM.WC.PN ---
History of Present Illness Date of Service: 01/28/23 Chief Complaint: Traumatic wound of left lower extremity History of Wound: This 77year-old female presents with a history of trauma to her left anterior tibial region from dropping a 2 quart pot on her leg. The patient has been cleaning her wound daily and applying Vaseline ointment. Progress of Wound: Wound is healed patient will be discharged from the wound center Subjective Subjective Patient states she still gets some drainage of some blood but I think it is just from irritation from the dressing She does have a skin covering over the wound Objective Data Objective Data Wound is closed healing nicely skin color is good no sign of infection patient be discharged from the wound center Vital Signs: Vital Signs Temp Pulse Resp BP O2 Del Method 97 F L 64 18 142/62 H Room Air 01/28/23 09:44 01/28/23 09:44 01/28/23 09:44 01/28/23 09:44 01/21/23 09:23 Oxygen Delivery Method Room Air Weight: 302 lb 0.533 oz Body Mass Index (BMI) 61.0 Physical Exam Const oriented x3 General Appearance: cooperative Exam Limitations: no limitations Eyes PERRL General Eye: normal appearance of both eyes Neck full ROM General: normal visual inspection Resp normal respiratory effort Effort and Inspection: able to speak in complete sentences Auscultation: clear to auscultation bilaterally Cardio regular rate and regular rhythm Palpation: normal PMI Rate: regular rate Rhythm: regular rhythm GI Auscultation: normoactive bowel sounds Palpation: soft and no hepatosplenomegaly external exam normal Extremity normal to inspection General Extremity: normal exam except as noted Skin Skin Narrative: Open traumatic wound on left lower leg with depth. Wounds: wounds noted Neuro oriented x3 Psych Appearance: grossly normal Speech: normal speech Thought Content: normal thought content Judgement: judgement good Debridement Note Debridement Note No debridement was completed: No debridement was completed today Post-Debridement Measurements and Additional Note: Post-Debridement Measurements/Treatment WC - Nurse 1 - General Ulcer Assessment Start: 01/14/23 10:26 Freq: Status: Active Protocol: MEENA Activity Type Activity Date Activity User E-sign Co-sign Detail Recorded Client Recorded Date Recorded By Document 01/14/23 10:27 RB [id number] 01/14/23 10:46 RB Document 01/21/23 09:23 BMF [id number] 01/21/23 09:31 BM Document 01/28/23 09:44 RB [id number] 01/28/23 09:45 RB 01/14/23 01/21/23 01/28/23 10:27 09:23 09:44 WC - Today's Visit Information Type of service Initial Visit Follow-up Visit Follow-up Visit (Physician/DURABILITY TECHNICIAN (Physician/DURABILITY TECHNICIAN ) ) Arrival Mode Ambulatory Ambulatory Ambulatory Transfer Assistance None None None Accompanied by [facility]USB IN [facility] Patient Identification Verified (Name & Yes Yes Yes ) Patient Requires Transmission-Based No No No Precautions Height and Weight Height 4 ft 11 in Weight 302 lb 0.533 oz Weight in Pounds 302.0 lbs Body Mass Index (BMI) 61.0 61.0 61.0 BMI Classification Obese Obese Obese BSA - Luther 2.20 Vital Signs Temperature (97.8 F-99.1 F) 97 F L 97 F L 97 F L Temperature Source Temporal Temporal Temporal Pulse Rate (60-100) 51 L 57 L 64 Pulse Location Monitor Monitor Monitor Respiratory Rate (12-18) 18 16 18 Respiratory rate source Observation Observation Observation Oxygen Delivery Method Room Air Blood Pressure (90/60-120/80) 130/54 H 105/51 L 142/62 H Blood Pressure Mean (mm Hg) 79 69 88 Source Monitor Monitor Monitor Position Semi-Fowlers Sitting Semi-Fowlers Blood Pressure Location Left Arm Left Arm Left Arm History Since Last Visit- (Skip if this is Patient's initial visit) Have you changed medications since your No No No last visit? Any new allergies or adverse reactions No No No Had a fall/change in ADL's that may No No No increase risk of falls Signs or symptoms of abuse and/or No No No neglect since last visit Have you been in the hospital since your No No No last visit? Has dressing in place as prescribed Yes Yes Yes Has compression in place as prescribed Yes Yes Yes Has offloadiing in place as prescribed No N/A No Experienced any changes in pain level or No No No management Left Footwear Regular Shoe Right Footwear Regular Shoe Pain Scale: 0-10 Numeric Is Patient Pain Free? Yes Yes Yes Lower Extremity Assessment/ Foot Assessment/ Toe Nail Assessment Right -Posterior Tibial Palpable Yes -Dorsalis Pedis Palpable Yes -Extremity Color Normal -Hair Growth on Legs Yes -Hair Growth on Toes No -Temperature of Extremity Cool -Capillary Refill Less than 3 Seconds -Dependent Rubor No -Blanched when Elevated No -Lipodermatosclerosis No -Other Deformity No -Prior Foot Ulcer No -Charcot Joint No -Prior Amputation No -Thick Yes -Discolored Yes -Deformed Yes -Improper Length & Hygeine Yes Left -Posterior Tibial Palpable Yes -Dorsalis Pedis Palpable Yes -Extremity Color Normal -Hair Growth on Legs Yes -Hair Growth on Toes No -Temperature of Extremity Warm -Capillary Refill Less than 3 Seconds -Dependent Rubor No -Blanched when Elevated No -Lipodermatosclerosis No -Other Deformity No -Prior Foot Ulcer No -Charcot Joint No -Prior Amputation No -Thick Yes -Discolored Yes -Deformed Yes -Improper Length & Hygeine Yes Neuropathy Assessment Feet - Top Side and Bottom <Entered> (a) Communication Assessment Preferred language Mac[place] Motor Hotel Manager Required No Able to Read Yes Able to Write Yes Communication Tools None Caregiver Communication Skills No Impairment Impairment Right Hearing Abillity Normal Left Hearing Abillity Normal Visual Assistive Devices Glasses Teaching Assessment Preferences Verbal,Written Barriers to Learning None Readiness To Learn Good Willingness to Engage in Self Management Med Activies Readiness to Engage in Self Management Med Activities Anxiety Level Calm Cooperation Cooperative Perception Coherent Interest in Health Problem Asks Questions Education Importance Acknowledges Need Does Patient Smoke tobacco or other No substances Smoking Status Never smoker Functional Assessment Recent Decline in Ability to Perform Denies Any Declines Culture/[place]/High School Librarian Cultural/[place] Needs that may affect No Treatment Plan Would you allow our hospital grocery clerk marking to No meet you for the purpose of spiritual/ emotional support? High School Librarian to contact place of muslim No Teaching: Wound Center *Welcome to the Wound Center -Person Taught Patient -Teaching Method Discussion, Demonstration -Response to teaching Verbalize understanding (a) 1 - + throughout WC - Nurse 1 - General Ulcer Measurement Start: 01/14/23 10:26 Freq: Status: Active Protocol: Activity Type Activity Date Activity User E-sign Co-sign Detail Recorded Client Recorded Date Recorded By Document 01/14/23 10:27 RB [id number] 01/14/23 10:46 RB Document 01/21/23 09:23 BM [id number] 01/21/23 09:31 BMF Document 01/28/23 09:44 RB [id number] 01/28/23 09:45 RB 01/14/23 01/21/23 01/28/23 10:27 09:23 09:44 Wound Center Nurse 1 2. LLE (left burr) -Combined with other wound No No No -Current Size (cm) - Length 0.5 0.5 0.1 -Current Size (cm) - Width 1 0.9 0.1 -Current Size (cm) - Depth 0.1 0.1 0.1 -Total Square Cm 0.5 0.45 0.01 -Date of Last Picture (Recall this 01/21/23 field) -Photo Taken Yes Yes Yes -Epithelialization Small 1-33% -Tunneling No No No -Undermining/Tunneling No No No -Circular Undermining No No No -Exudate Amt Medium Small None Present -Exudate Type Serosanguineous Serosanguineous -Wound Margin Distinct, Flat & Intact Distinct, Outline Outline Attached Attached -Granulation Amt Medium (34-66%) Large (67-100%) Large (67-100%) -Granulation Quality [place] -Slough/Fibrin Yes No Yes -Necrosis Amt Medium (34-66%) None Present (0 Medium (34-66%) %) -Necrotic Tissue Type Adherent Slough Adherent Slough -Structure Exposed N/A N/A -Texture (Sharee-wound Skin Appearance) Assessed Assessed, Assessed Scarring -Moisture (Sharee-wound Skin Appearance) Assessed Assessed Assessed -Color (Sharee-wound Skin Appearance) Assessed Assessed Assessed -Temperature (Sharee-wound Skin No Abnormality No Abnormality No Abnormality Appearance) (Pt Warm) (Pt Warm) (Pt Warm) -Tenderness on Palpation (Sharee-wound No No No Skin Appearance) -Ulcer Cleansing Wound Cleanser Rinsed/ Wound Cleanser Irrigated with Saline -Foul Odor after Cleansing No No No -Anesthetic Used 5% Lidocaine 5% Lidocaine 5% Lidocaine Gel Gel Gel Lower Limb Edema Present Yes Yes Right Calf (cm) 37 Right Ankle (cm) 21 Left Calf (cm) 35.5 37.5 Left Ankle (cm) 21 20.9 WC - Nurse 2 - General Ulcer CM Notes Start: 01/14/23 10:26 Freq: Status: Active Protocol: Activity Type Activity Date Activity User E-sign Co-sign Detail Recorded Client Recorded Date Recorded By Document 01/14/23 11:02 MW [id number] 01/14/23 11:07 MW Document 01/21/23 09:48 MW [id number] 01/21/23 09:51 MW 01/14/23 01/21/23 11:02 09:48 Wound Center Nurse 2 2. LLE (left burr) -Time 11:03 09:49 -Correct Patient Yes Yes -Correct Side, Site, Position Yes Yes -Correct Procedure Yes Yes -Procedure Performed Yes Yes -Type of Procedure Debridement Debridement -Clinical Debridement Subcutaneous Subcutaneous -Tissue Removed Subcutaneous Subcutaneous -Post Debridement (cm) - Length 0.5 0.4 -Post Debridement (cm) - Width 1.4 0.8 -Post Debridement (cm) - Depth 0.1 0.1 -Total Square (Post) (cm) 0.70 0.32 -Area of Debridement (cm) - Length 0.5 0.4 -Area of Debridement (cm) - Width 1.4 0.8 -Total Square (Area) (cm) 0.70 0.32 -Tunneling No No -Undermining/Tunneling No -Circular Undermining No No -Wound/Ulcer Outcome Not Healed Not Healed -Ulcer Cleansing Rinsed/ Rinsed/ Irrigated with Irrigated with Saline Saline -Foul Odor after Cleansing No No -Bioengineered Tissue No No -Bleeding Controlled with Pressure Pressure -Treatment Response Procedure Procedure Tolerated Well Tolerated Well -Offloading No No -Debridement - Subq, 1st 20sq cm Yes Yes Pain Scale: 0-10 Numeric Is Patient Pain Free? Yes Yes - Nurse 3 - General Ulcer D/C NN Start: 01/14/23 10:26 Freq: Status: Active Protocol: Activity Type Activity Date Activity User E-sign Co-sign Detail Recorded Client Recorded Date Recorded By Document 01/14/23 11:18 MW [id number] 01/14/23 11:20 MW Document 01/21/23 09:57 MW [id number] 01/21/23 09:57 MW 01/14/23 01/21/23 11:18 09:57 Wound Care Center Nurse 3 2. LLE (left burr) -Ulcer Cleansing Rinsed/ Rinsed/ Irrigated with Irrigated with Saline Saline -Foul Odor after Cleansing No No -Negative Pressure Wound Therapy N/A N/A -Primary Dressing Applied Aquacel Extra, Aquacel Extra, NonAdherent NonAdherent Contact Layer Contact Layer -Primary Dressing Covered/Secured with Dry Gauze & Dry Gauze & Roll Gauze, Roll Gauze, Secured with Secured with Tape Tape -Aquacel Extra 1 1 Treatment Response Procedure Procedure Tolerated Well Tolerated Well Pain Scale: 0-10 Numeric Is Patient Pain Free? Yes Yes Teaching: Wound Center Dressing Your Wound -Person Taught Patient Patient -Teaching Method Discussion Discussion, Demonstration -Response to teaching Verbalize Verbalize understanding understanding WC - Visit Discharge Discharge Condition Stable Stable Ambulatory Status Ambulatory Ambulatory Transportation Private Auto Private Auto Accompanied by self self Medication Reconcilliation completed & No No provided to patient/care provider Clinical Summary of Care Provided Yes Yes Assessment/Plan Assessment/Plan (1) Wound of right leg: CODE(S): S81.801A - Unspecified open wound, right lower leg, initial encounter PLAN: Discharge from the wound center follow-up as needed (2) Nonhealing nonsurgical wound limited to breakdown of skin: CODE(S): T14.8XXA - Other injury of unspecified body region, initial encounter (3) Edema of left lower leg: CODE(S): R60.0 - Localized edema
== END 2023-01-28 15:50 | disposition home or self-care (01) ==
LOC: WC 09:30
PROVIDERS: PCP Family Medicine; Referring Provider Physician Assistant Surgical; Visit Provider Nurse Practitioner
DX: L97.822 Non-pressure chronic ulcer of other part of left lower leg with fat layer exposed (principal); J44.9 Chronic obstructive pulmonary disease, unspecified; S81.801S Unspecified open wound, right lower leg, sequela; W20.8XXS Other cause of strike by thrown, projected or falling object, sequela; R60.0 Localized edema; I10 Essential (primary) hypertension; G89.29 Other chronic pain; E07.9 Disorder of thyroid, unspecified; Z79.899 Other long term (current) drug therapy; Z87.891 Personal history of nicotine dependence; Z86.718 Personal history of other venous thrombosis and embolism
CPT/HCPCS: 11042; 99213; G0463

== ENCOUNTER 2023-02-10 21:02 | Emergency (ER) | payer MEDICARE, OTHER, SELFPAY ==
[2023-02-10 21:03] VITALS: BP 151/78; PULSE 64; RESP 15; TEMP 36.1; O2SAT 99; BMI 29.0
[2023-02-10 22:00] VITALS: BP 145/76; O2SAT 97
--- NOTE | 2023-02-10 22:16 | CT_ITS ---
INDICATION: abd pain EXAMINATION: CT ABDOMEN AND PELVIS WITHOUT CONTRAST - CT Abdomen And Pelvis W/O Contrast Injection TECHNIQUE: Helically acquired images were obtained of the abdomen and pelvis without oral or IV contrast. A radiation dose optimization technique was used for this scan. IV Contrast dosage and agent: None. Oral contrast: None. RADIATION DOSAGE (If Supplied By Facility): CTDIvol = ( 8.06 ) mGy, DLP = ( 352.39 ) mGycm COMPARISON: FINDINGS: LOWER CHEST: Lung bases are clear. No cardiomegaly or pericardial effusion. LIVER: Homogeneous. No focal mass. No intra- or extrahepatic biliary ductal dilation. PANCREAS: No focal cystic or solid mass. SPLEEN: Normal size without focal cystic or solid mass. ADRENAL GLANDS: No nodules. KIDNEYS AND URETERS: Normal renal size and position. No hydronephrosis. PERITONEUM: No ascites or free air. No other fluid collection. BOWEL: No evidence of acute appendicitis. No stomach or bowel distension. No focal inflammatory change. LYMPH NODES: No enlarged mesenteric or retroperitoneal lymph nodes. VESSELS: Aorta is non-dilated. URINARY BLADDER: Unremarkable. REPRODUCTIVE ORGANS: No pelvic masses. ABDOMINAL WALL: No discrete abdominal or pelvic wall hernia. BONES: Old compression fracture of T10. Advanced degenerative changes at L4-5 with 12 mm spondylolisthesis. Posterior fusion at L5-S1. Levoscoliosis of the lumbar spine. CT/Abdomen/Pelvis without Cont IMPRESSION: No acute abnormality of the abdomen and pelvis. Electronically Signed: Nara Prakash MD at 0:19 EDT ,
[2023-02-10] MEDS: proCHLORPERazine 10 MG/2 ML Vial 5 MG IV (22:43)
[2023-02-10] MEDS: DiphenhydrAMINE 50 MG/ML Syringe 25 MG IV (22:44)
[2023-02-10] MEDS: 0.9% Normal Saline 1,000 ML 999 ML IV (22:44)
[2023-02-10 23:20] LABS: Lactic Acid 1.8 mmol/L (0.4-1.9)
[2023-02-10 23:22] LABS: Bacteria 0 SEEN /hpf (None Seen); Mucous, Urine 0 SEEN /hpf (<or=2+); Red Blood Cells-Urine 0 SEEN /hpf (0-5); Squamous Epithelial Cells - UA 0 SEEN /hpf (5-10); White Blood Cells 0 SEEN /hpf (0-5)
[2023-02-10 23:27] LABS: AST(SGOT) 32 U/L (15-37); Alanine Aminotransfer ALT/SGPT 21 U/L (13-56); Albumin, Serum 3.8 g/dL (3.2-5.0); Alkaline Phosphatase 67 U/L (45-117); Anion Gap 9 (5-15); BUN 8 mg/dL (7-18); BUN/Creat Ratio 8.9 RATIO (10-20); Bilirubin, Direct 0.27 mg/dL (0.00-0.30); Calcium,Total 9.1 mg/dL (8.5-10.1); Chloride 93 mmol/L (98-107); EST Glomerular Filtration Rate 64 mL/min (>60); Est Glom Filt Rate - Afr Amer 77 mL/min (>60); Estimated Creatinine Clearance 52.08 ml/min; Globulin 4.1 g/dL (2.2-4.2); Glucose 101 mg/dL (74-106); Lipase 11 U/L (13-75); Potassium 4.1 mmol/L (3.5-5.1); Protein, Total 7.9 g/dL (6.4-8.2); Sodium Level 127 mmol/L (136-145)
[2023-02-10 23:31] LABS: Color, Urine Yellow (Yellow); Glucose, Dipstick Normal (Normal); Ketone-Dipstick Negative (Negative); Leukocyte Esterase-Dipstick Negative /ul (Negative); Nitrite-Dipstick Negative (Negative); Occult Blood-Urine Negative /ul (Negative); Protein-Dipstick Negative (Negative); Specific Gravity, Urine 1.015 (1.002-1.030); Urine Bilirubin Dipstick Negative (Negative); Urine Clarity Clear (Clear); Urine Urobilinogen Normal (Normal)
[2023-02-10 23:32] LABS: Absolute Neutrophil Count 5.8 X10^3/uL (2.0-7.7); Basophil# 0.08 X10^3/uL; Basophil% 1.1 % (0-1); Eosinophils% 1.4 % (0-5); Hematocrit 31.6 % (37-47); Hemoglobin 11.1 g/dL (12.0-15.0); Lymphocyte % 12.2 % (19-41); Mean Corp Hgb Conc 35.1 g/dL (32-36); Mean Corpuscular Hgb 30.2 pg (27.0-32.0); Mean Corpuscular Volume 85.9 fL (81-99); Mean Platelet Vol. 9.8 fl (6.2-12.0); Monocyte# 0.45 X10^3/uL; Monocyte% 6.1 % (0-10); NRBC Flagged by Analyzer 0 % (0-5); Neutrophil # 5.77 X10^3/uL (2.7-7.7); Neutrophil % 77.8 % (47-70); Platelet Count 191 K/mm3 (150-450); RBC Distribution Width CV 12.3 % (11.6-14.6); Red Blood Count 3.68 M/mm3 (4.2-5.4); White Blood Count 7.4 K/mm3 (4.4-11.0)
--- NOTE | 2023-02-11 00:43 | EX.ED.DYSGE1 ---
HPI History of Present Illness Chief Complaint: Nausea/Vomiting Narrative Narrative: Patient is a 77-year-old female with past medical history of hypertension as well as previous breast cancer. She presents today with multiple complaints. She states that she has noticed some mid upper abdominal pain with bouts of nausea and vomiting. She states she has been urinating more frequently as well and now she feels like there is irritation and burning when she goes. She also reports that a dry burning tongue. She states symptoms started a few hours ago and she denies any known sick contact. She does report previous abdominal surgeries but denies any previous history of obstruction and states she still has had a bowel movement and has been passing gas. However she cannot get her nausea and vomiting under control and with her increased pain had concern for infection and therefore comes in for evaluation [facility] Medical History Arthritis Asthma Bilateral cataracts Breast cancer Bronchiectasis Chronic pain COPD (chronic obstructive pulmonary disease) Difficulty balancing DVT (deep venous thrombosis) Former smoker Generalized weakness GERD (gastroesophageal reflux disease) history of blood clot Hypertension Infection of kidney Kidney stones Knee pain Limb weakness Limb weakness Lymphedema Mass of right chest wall Migraines CISCO (obstructive sleep apnea) Osteoporosis Pneumonia Pulmonary embolism Pulmonary fibrosis Severe sepsis Shortness of breath Shoulder pain Spinal stenosis Thyroid disease Tumor of bladder neck Urinary retention UTI (urinary tract infection) Vitamin D deficiency Home Medications levothyroxine 50 mcg tablet 50 mcg PO DAILY 12/19/13 [History Last Taken 06/08/17] alprazolam 1 mg tablet 1 mg PO TID PRN PRN Anxiety 02/16/17 [History Last Taken 03/22/21 23:00] lidocaine 5 % topical ointment 35 g topical TID PRN Pain 03/11/18 [History Last Taken Unknown] cholecalciferol (vitamin D3) 25 mcg (1,000 unit) capsule 1,000 unit PO DAILY Check with primary doctor 04/12/19 [History Last Taken Unknown] fluticasone propionate 44 mcg/actuation HFA aerosol inhaler (Flovent HFA) 1 inh inhalation BID Check with primary doctor 04/12/19 [History Last Taken Unknown] hydrocodone 10 mg-acetaminophen 325 mg tablet 1 tab PO TID PRN Pain 03/24/21 [History Last Taken 06/16/22 22:00] ondansetron HCl 4 mg tablet (Zofran) 4 mg PO Q8H PRN nausea and vomiting #20 tabs 03/25/21 [Rx Last Taken Unknown] methylphenidate HCl 20 mg tablet 20 mg PO BID 02/14/22 [History Last Taken Unknown] nebivolol 5 mg tablet (Bystolic) 5 mg PO DAILY Check with primary doctor 02/14/22 [History Last Taken Unknown] omeprazole 20 mg capsule,delayed release 20 mg PO DAILY Check with primary doctor 02/14/22 [History Last Taken Unknown] pregabalin 150 mg capsule 150 mg PO TID Pain 02/14/22 [History Last Taken Unknown] tolterodine 4 mg capsule,extended release 24 hr 4 mg PO DAILY Check with primary doctor 02/14/22 [History Last Taken Unknown] albuterol sulfate 90 mcg/actuation aerosol inhaler 2 inh inhalation PRN PRN Shortness Of Breath 02/17/22 [History Last Taken Unknown] beclomethasone dipropionate 80 mcg/actuation HFA breath activated aerosol 2 inh inhalation BID Check with primary doctor 02/17/22 [History Last Taken Unknown] ondansetron 4 mg disintegrating tablet 4 mg PO Q6H PRN nausea and vomiting #10 tabs 06/17/22 [Rx Last Taken Unknown] cephalexin 500 mg capsule 500 mg PO Q6 #28 CAPSULES 08/28/22 [Rx Last Taken Unknown] lisinopril 5 mg tablet 5 mg PO DAILY #30 tabs 08/28/22 [Rx Last Taken Unknown] ondansetron 4 mg disintegrating tablet 4 mg PO TID PRN nausea and vomiting #21 tabs 02/11/23 [Rx Last Taken Unknown] Allergy/AdvReac Type Severity Reaction Status Date / Time latex Allergy Mild Rash Verified 02/10/23 21:40 doxycycline Allergy Unknown weakness Verified 02/10/23 21:40 montelukast Allergy Unknown Rash Verified 02/10/23 21:40 Iodinated Contrast Media Allergy Other Verified 02/11/23 00:16 [iodine contrast] Sulfa (Sulfonamide Allergy Hives Verified 02/10/23 21:40 Antibiotics) oxycodone [From Percocet] AdvReac Other Verified 02/10/23 21:40 Family History (Reviewed 01/14/23 @ 12:32 by Dinorah Petersen OCEANIC SCIENCES PROFESSOR, OCEANIC SCIENCES PROFESSOR-C) Mother Cancer gastric cancer at 93 Father Emphysema lung Heart disease Brother Heart disease Diabetes Surgical History H/O elbow surgery H/O knee surgery H/O right mastectomy History of appendectomy History of bladder suspension procedure History of cardiac catheterization History of cholecystectomy History of excision of mass History of hand surgery History of hysterectomy with bilateral oophorectomy History of spinal fusion Social History household members: spouse and other details: raising her great grandson current occupational status: retired Smoking Status: Never smoker Tobacco: How many years used: 15 how long ago did patient quit smoking: smoked less than a pack per week for 15 years alcohol intake: never ROS ROS ED Constitutional Constitutional ED: Reports chills and fever(s) ENT ENT ED: Reports sore throat Cardiovascular Cardiovascular: Denies chest pain Respiratory/Chest Respiratory/Chest: Denies cough or dyspnea Gastrointestinal Gastrointestinal: Reports abdominal pain, nausea and vomiting; Denies diarrhea Genitourinary Genitourinary ED: Reports dysuria and urinary frequency Musculoskeletal Musculoskeletal: Reports myalgias Integumentary Denies rash Neurologic Neurologic: Denies headache(s) Hematologic/Lymphatic Hematologic/Lymphatic: Denies easy bleeding or easy bruising EXAM Physical Exam Const Vital Signs: 02/10/23 21:03 02/10/23 22:00 02/11/23 01:05 Temperature 97.0 F L Temperature Source Temporal Pulse Rate 64 67 Respiratory Rate 15 17 Blood Pressure 151/78 H 145/76 H 177/68 H Blood Pressure Mean 102 94 Pulse Ox 99 97 98 Oxygen Delivery Method Room Air Positive well nourished and well developed General Appearance ED: well developed HEENT Reports dry mucous membranes HEENT Narrative: No oral lesions no airway edema or compromise no secondary changes in the posterior pharynx to suggest infection Mouth ED: Yes dry mucous membranes Mouth: dry mucous membranes Eyes PERRL and EOMs intact bilaterally General Eye ED: Negative for scleral icterus Neck supple Resp normal respiratory effort and clear to auscultation bilaterally Cardio regular rate and regular rhythm Rate: other Other Details: Radial pulse 2 out of 4 bilaterally are equal and symmetric GI non-distended GI Narrative: Abdomen is soft and nondistended with normal active bowel sounds there is pain on palpation in the midepigastric to left upper quadrant without voluntary guarding or rigidity. No pulsatile mass or fluid wave Auscultation: normoactive bowel sounds Palpation: soft Back/Spine no CVA tenderness Extremity normal to inspection Extremity Narrative: No asymmetric edema no pitting edema negative Homans' sign bilaterally Neuro oriented x3 and CN's II-XII intact bilaterally Sensorium / Orientation: alert Psych Psych Narrative: Patient has a nervous/anxious affect Skin no rashes or lesions noted General Skin Exam: Negative for jaundice MDM MDM MDM Narrative Medical decision making narrative: Patient presented to the ER with stable vitals but with her large constellation of symptoms differential diagnosis could be viral gastroenteritis versus pancreatitis versus colitis versus UTI and therefore a basic work-up was obtained. She also has a history of recurrent abdominal surgeries and there is possibility of ileus or small bowel obstruction as a cause of her nausea and vomiting. Basic labs were obtained with a CT scan. Labs revealed hyponatremia which appears chronic on chart review and otherwise no clinically significant laboratory findings. CT scan revealed no acute infectious or inflammatory pathology or signs of obstruction. On reevaluation the patient now states that she is unable to pee. On exam she is now having organomegaly and slight distention in the suprapubic/midline lower abdomen region consistent with acute urinary retention. Therefore Arreaga catheter will be placed. At this time however she does not have CT scan evidence of bowel obstruction perforation or infectious process and labs do not reveal acute kidney injury associated with the urinary retention. Therefore with the Arreaga catheter in place now causing bladder drainage there is no need for admission and she can be discharged home and follow-up on an outpatient basis History & Record Review Discussion w/independent historian: Patient and Family Lab Data Attestation: I reviewed the patient's lab results. Labs: Laboratory Results - last 24 hr 02/10/23 02/10/23 02/10/23 22:45 22:45 22:45 WBC 7.4 RBC 3.68 L Hgb 11.1 L Hct 31.6 L MCV 85.9 MCH 30.2 MCHC 35.1 RDW Std Deviation 39.0 RDW Coeff of Mahi 12.3 Plt Count 191 MPV 9.8 Immature Gran % (Auto) 1.400 H Neut % (Auto) 77.8 H Lymph % (Auto) 12.2 L [place] % (Auto) 6.1 Eos % (Auto) 1.4 Baso % (Auto) 1.1 H Absolute Neuts (auto) 5.8 Absolute Lymphs (auto) 0.90 Nucleated RBC % 0 Sodium 127 L Potassium 4.1 Chloride 93 L Carbon Dioxide 25.0 Anion Gap 9 BUN 8 Creatinine 0.90 Estim Creat Clear Calc 52.08 Est GFR (MDRD) Af Amer 77 Est GFR (MDRD) Non-Af 64 BUN/Creatinine Ratio 8.9 L Glucose 101 Lactic Acid 1.8 Calcium 9.1 Total Bilirubin 0.90 Direct Bilirubin 0.27 AST 32 ALT 21 Alkaline Phosphatase 67 Total Protein 7.9 Albumin 3.8 Globulin 4.1 Lipase 11 L Urine Color Urine Clarity Urine pH Ur Specific Lithia Urine Protein Urine Glucose (UA) Urine Ketones Urine Occult Blood Urine Nitrite Urine Bilirubin Urine Urobilinogen Ur Leukocyte Esterase Urine RBC Urine WBC Ur Squamous Epith Cells Urine Bacteria Urine Mucus 02/10/23 23:15 WBC RBC Hgb Hct MCV MCH MCHC RDW Std Deviation RDW Coeff of Mahi Plt Count MPV Immature Gran % (Auto) Neut % (Auto) Lymph % (Auto) [place] % (Auto) Eos % (Auto) Baso % (Auto) Absolute Neuts (auto) Absolute Lymphs (auto) Nucleated RBC % Sodium Potassium Chloride Carbon Dioxide Anion Gap BUN Creatinine Estim Creat Clear Calc Est GFR (MDRD) Af Amer Est GFR (MDRD) Non-Af BUN/Creatinine Ratio Glucose Lactic Acid Calcium Total Bilirubin Direct Bilirubin AST ALT Alkaline Phosphatase Total Protein Albumin Globulin Lipase Urine Color Yellow Urine Clarity Clear Urine pH 8.0 Ur Specific Lithia 1.015 Urine Protein Negative Urine Glucose (UA) Normal Urine Ketones Negative Urine Occult Blood Negative Urine Nitrite Negative Urine Bilirubin Negative Urine Urobilinogen Normal Ur Leukocyte Esterase Negative Urine RBC 0 SEEN Urine WBC 0 SEEN Ur Squamous Epith Cells 0 SEEN Urine Bacteria 0 SEEN Urine Mucus 0 SEEN Radiography Diagnostic Testing: Clinical Impression(s) from Imaging Studies Abdomen/Pelvis CT 02/10/23 22:16 IMPRESSION: No acute abnormality of the abdomen and pelvis. Electronically Signed: Nara Prakash MD at 0:19 EDT , Discharge Plan Triage Chief Complaint: Nausea/Vomiting ED Provider: Jeremiah Mccormack Dx/Rx/DC Orders Clinical Impression: Nausea & vomiting, Acute urinary retention, Benign essential hypertension, Hypothyroidism, Hyponatremia Instructions: ED Urinary Retention, Female, ED Gastroenteritis, Viral (Adult) Prescriptions: New ondansetron 4 mg tablet,disintegrating 4 mg PO TID PRN (Reason: nausea and vomiting) Qty: 21 0RF No Action Flovent HFA 44 mcg/actuation HFA aerosol inhaler 1 inh INHALATION BID cholecalciferol (vitamin D3) 1,000 unit capsule 1,000 unit capsule 1,000 unit PO DAILY methylphenidate HCl 20 mg tablet 20 mg PO BID nebivolol [Bystolic] 5 mg tablet 5 mg PO DAILY omeprazole 20 mg capsule,delayed release(DR/EC) 20 mg PO DAILY tolterodine 4 mg capsule,extended release 24hr 4 mg PO DAILY Hold Instructions: Resume on 05/24/22. 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 Label Comments: TAKE 1 TABLET BY MOUTH THREE TIMES DAILY NEEDED For PAIN ondansetron HCl [Zofran] 4 mg tablet 4 mg PO Q8H PRN (Reason: nausea and vomiting) Qty: 20 0RF pregabalin 150 mg capsule 150 mg PO TID Label Comments: TAKE 1 TABLET BY MOUTH THREE TIMES DAILY ondansetron 4 mg tablet,disintegrating 4 mg PO Q6H PRN (Reason: nausea and vomiting) Qty: 10 0RF cephalexin [cephalexin] 500 mg capsule 500 mg PO Q6 Qty: 28 0RF lisinopril 5 mg tablet 5 mg PO DAILY Qty: 30 0RF Primary Care Provider: Ronaldo Ruiz Referrals: Ronaldo Ruiz DO [Primary Care Provider] - Zaina Gordon MD [Med Staff - Active Staff] - Activity Restrictions/Additional Instructions: Please follow-up with urology secondary to your urinary retention noted on today's exam. Use the Zofran as directed to control any further bouts of nausea or vomiting and return to the ER should you have any further concerns Disposition Disposition: Home, Self Care Discharge Date/Time: 02/11/23 02:03
[2023-02-11] MEDS: proCHLORPERazine 10 MG/2 ML Vial 5 MG IV (01:02)
[2023-02-11] MEDS: Morphine 4 MG/ML Syringe IV (01:03)
[2023-02-11 01:05] VITALS: BP 177/68; PULSE 67; RESP 17; O2SAT 98
== END 2023-02-11 02:03 | disposition home or self-care (01) ==
PROVIDERS: Emergency Provider Emergency Medicine; PCP Family Medicine; Visit Provider Emergency Medicine
DX: R11.2 Nausea with vomiting, unspecified (principal); E03.9 Hypothyroidism, unspecified; Z87.891 Personal history of nicotine dependence; I10 Essential (primary) hypertension; E87.1 Hypo-osmolality and hyponatremia; R33.9 Retention of urine, unspecified; J45.909 Unspecified asthma, uncomplicated; Z79.899 Other long term (current) drug therapy; Z79.51 Long term (current) use of inhaled steroids; K21.9 Gastro-esophageal reflux disease without esophagitis
CPT/HCPCS: 51702; 74176; 80048; 80076; 81001; 83605; 83690; 85025; 96361; 96374; 96375; 96376; 99283; A4216

== ENCOUNTER 2023-03-30 23:33 | Emergency (ER) | payer MEDICARE, OTHER, SELFPAY ==
[2023-03-30 23:38] VITALS: BP 165/75; PULSE 67; RESP 18; TEMP 36.4; O2SAT 98; BMI 27.6
--- NOTE | 2023-03-30 23:55 | CT_ITS ---
INDICATION: headache, n/v, accelerated BP EXAMINATION: CT BRAIN - CT Head or Brain W/O Contrast Injection TECHNIQUE: Multiple axial images were obtained of the head without intravenous contrast. A radiation dose optimization technique was used for this scan. IV Contrast dosage and agent: None. RADIATION DOSAGE (If Supplied By Facility): CTDIvol = ( 44.99 ) mGy, DLP = ( 762.36 ) mGycm COMPARISON: CT head 08/27/2022 FINDINGS: BRAIN: No acute bleed. No edema. Encephalomalacia right temporal-occipital region consistent with old infarct. Land-white matter differentiation is maintained. VENTRICLES AND SULCI: Not dilated. EXTRA-AXIAL: No hemorrhage, fluid collection, or mass. CALVARIUM / SKULL BASE: Unremarkable. FACE/SINUSES: Minimal mucosal thickening in the maxillary sinuses. SOFT TISSUES: Unremarkable. CT/Brain/Head without Contrast IMPRESSION: No acute abnormality. 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 Electronically Signed: America Kathleen MD at 0:34 EDT ,
--- NOTE | 2023-03-30 23:56 | EX.ED.DYSGE1 ---
HPI History of Present Illness Chief Complaint: Nausea/Vomiting Informant: patient and spouse/S.O. Narrative Narrative: Patient states for the past 2 days she has been having worsening headache posterior neck pain and now nausea and vomiting, her blood pressure was over 200 at home so she took one of her hydralazine that is meant to be taken as needed for elevated blood pressure. She has been compliant with her other blood pressure medications which have not changed lately, she has not forgotten to take a dose on accident. No recent injuries or illness. She has been having headaches and neck pain since June last year similar to this but worse in the past couple days to a week gradually, now with severe pressure in my ears. She states she has chronic painful numbness in her lower extremities due to peripheral neuropathy, and it is worse today because of the vomiting, she has not been able to take her Lyrica. [facility] Medical History Arthritis Asthma Back problem Bilateral cataracts Breast cancer Bronchiectasis Carpal tunnel syndrome of left wrist Chronic pain COPD (chronic obstructive pulmonary disease) Difficulty balancing DVT (deep venous thrombosis) Former smoker Generalized weakness GERD (gastroesophageal reflux disease) High cholesterol history of blood clot Hypertension IBS (irritable bowel syndrome) Infection of kidney Kidney stones Knee pain Limb weakness Limb weakness Lymphedema Mass of right chest wall Migraines CISCO (obstructive sleep apnea) Osteoporosis Pneumonia Pulmonary embolism Pulmonary fibrosis Severe sepsis Shortness of breath Shoulder pain Spinal stenosis Thyroid disease Tumor of bladder neck Urinary retention UTI (urinary tract infection) Vitamin D deficiency Home Medications levothyroxine 50 mcg tablet 50 mcg PO DAILY 12/19/13 [History Last Taken 06/08/17] alprazolam 1 mg tablet 1 mg PO TID PRN PRN Anxiety 02/16/17 [History Last Taken 03/22/21 23:00] lidocaine 5 % topical ointment 35 g topical TID PRN Pain 03/11/18 [History Last Taken Unknown] cholecalciferol (vitamin D3) 25 mcg (1,000 unit) capsule 1,000 unit PO DAILY Check with primary doctor 04/12/19 [History Last Taken Unknown] fluticasone propionate 44 mcg/actuation HFA aerosol inhaler (Flovent HFA) 1 inh inhalation BID Check with primary doctor 04/12/19 [History Last Taken Unknown] hydrocodone 10 mg-acetaminophen 325 mg tablet 1 tab PO .QID PRN Pain 03/24/21 [History Last Taken 03/30/23] ondansetron HCl 4 mg tablet (Zofran) 4 mg PO Q8H PRN nausea and vomiting #20 tabs 03/25/21 [Rx Last Taken Unknown] methylphenidate HCl 20 mg tablet 20 mg PO BID 02/14/22 [History Last Taken Unknown] omeprazole 20 mg capsule,delayed release 20 mg PO DAILY Check with primary doctor 02/14/22 [History Last Taken Unknown] pregabalin 150 mg capsule 150 mg PO TID Pain 02/14/22 [History Last Taken Unknown] tolterodine 4 mg capsule,extended release 24 hr 4 mg PO DAILY Check with primary doctor 02/14/22 [History Last Taken Unknown] albuterol sulfate 90 mcg/actuation aerosol inhaler 2 inh inhalation PRN PRN Shortness Of Breath 02/17/22 [History Last Taken Unknown] beclomethasone dipropionate 80 mcg/actuation HFA breath activated aerosol 2 inh inhalation BID Check with primary doctor 02/17/22 [History Last Taken Unknown] ondansetron 4 mg disintegrating tablet 4 mg PO Q6H PRN nausea and vomiting #10 tabs 06/17/22 [Rx Last Taken Unknown] cephalexin 500 mg capsule 500 mg PO Q6 #28 CAPSULES 08/28/22 [Rx Last Taken Unknown] lisinopril 5 mg tablet 5 mg PO DAILY #30 tabs 08/28/22 [Rx Last Taken Unknown] ondansetron 4 mg disintegrating tablet 4 mg PO TID PRN nausea and vomiting #21 tabs 02/11/23 [Rx Last Taken Unknown] nebivolol 5 mg tablet (Bystolic) 10 mg PO QHS Check with primary doctor 02/25/23 [History Last Taken Unknown] losartan 25 mg tablet 50 mg PO BID 03/31/23 [History Last Taken Unknown] metoclopramide HCl 10 mg tablet 10 mg PO Q6H PRN nausea and vomiting #20 tabs 03/31/23 [Rx Last Taken Unknown] nebivolol 10 mg tablet 20 mg PO .QAM 03/31/23 [History Last Taken Unknown] Allergy/AdvReac Type Severity Reaction Status Date / Time latex Allergy Mild Rash Verified 03/30/23 23:34 doxycycline Allergy Unknown weakness Verified 03/30/23 23:34 montelukast Allergy Unknown Rash Verified 03/30/23 23:34 Iodinated Contrast Media Allergy Other Verified 03/30/23 23:34 [iodine contrast] Sulfa (Sulfonamide Allergy Hives Verified 03/30/23 23:34 Antibiotics) oxycodone [From Percocet] AdvReac Other Verified 03/30/23 23:34 Family History Mother Cancer gastric cancer at 93 Father Emphysema lung Heart disease Brother Heart disease Diabetes Surgical History (Updated 02/25/23 @ 15:[address] Katheryn Walton MD) H/O elbow surgery H/O knee surgery H/O lateral meniscus repair of right knee H/O right mastectomy History of appendectomy History of bladder suspension procedure History of blepharoplasty History of cardiac catheterization History of carpal tunnel surgery of left wrist History of cataract removal with insertion of prosthetic lens History of cholecystectomy History of excision of mass History of hand surgery History of hysterectomy with bilateral oophorectomy History of lumpectomy of right breast History of spinal fusion Social History household members: spouse and other details: raising her great grandson current occupational status: retired Smoking Status: Never smoker Tobacco: How many years used: 15 how long ago did patient quit smoking: smoked less than a pack per week for 15 years alcohol intake: never substance use type: does not use additional social history: Does Take Aspirin Does Take Ibuprofen ROS ROS ED Constitutional Constitutional ED: Denies chills or fever(s) Eyes Eyes: Denies change in vision or diplopia ENT ENT ED: Reports ear pain bilateral; Denies rhinorrhea or sore throat Cardiovascular Cardiovascular: Denies chest pain or palpitations Respiratory/Chest Respiratory/Chest: Denies cough or dyspnea Gastrointestinal Gastrointestinal: Reports nausea and vomiting; Denies abdominal pain or diarrhea Genitourinary Genitourinary ED: Denies dysuria or hematuria Musculoskeletal Musculoskeletal: Reports neck pain; Denies back pain Integumentary Denies abscess or rash Neurologic Neurologic: Reports headache(s) and paresthesias RLE (thigh) and LLE (thigh); Denies weakness Psychiatric Psychiatric: Reports anxiety; Denies suicidal thoughts EXAM Physical Exam Const Vital Signs: 03/30/23 23:38 Temperature 97.6 F L Temperature Source Temporal Pulse Rate 67 Respiratory Rate 18 Blood Pressure 165/75 H Blood Pressure Mean 105 Pulse Ox 98 Oxygen Delivery Method Room Air Positive well nourished and well developed General Appearance ED: well developed and NAD HEENT Reports moist mucous membranes HEENT Narrative: TMs normal except for effusion without purulence or perforation on the right, patient states she has a history of that. EAC normal bilaterally. Mastoid process without erythema, swelling, tenderness bilaterally. normocephalic and atraumatic Eyes PERRL and EOMs intact bilaterally Neck full ROM, no lymphadenopathy and supple Neck Narrative: Mild tenderness both sternocleidomastoids. No carotid bruits. Diffusely tender posterior neck paraspinal musculature throughout. General: tenderness Chest Wall inspection of chest normal Resp normal respiratory effort and clear to auscultation bilaterally Cardio regular rate, regular rhythm and no murmurs GI non-tender and non-distended Auscultation: normoactive bowel sounds Palpation: soft Back/Spine no CVA tenderness General Back: other FROM Extremity normal to inspection General Extremety ED: Negative for edema, pulses abnormal or tenderness General Extremity: Negative for edema or pulses abnormal Neuro oriented x3, CN's II-XII intact bilaterally and no sensory deficits noted Neuro Narrative: No focal motor deficits. Sensorium / Orientation: awake and alert Motor Exam: general weakness Psych Psych Narrative: Anxious. Moaning. Skin no rashes or lesions noted and no wounds MDM MDM MDM Narrative Medical decision making narrative: Upon evaluation the patient's blood pressure is 165/75 so no emergent treatment for this is indicated but will be monitored closely. She has no carotid bruits, this is chronic pain in her neck, and it is bilateral. She has no neurologic deficits. For these reasons and her age, I do not think that the benefits of performing CT angiography of her neck vessels to rule out dissection outweigh the risks. Patient was given IV fluids and Zofran while we obtain blood test and the CT. I reviewed the the images and the report which I agree with, basically negative for any acute, old infarct noted. Upon reevaluation the patient states she feels no different. She then offers more information and then she offered me before; she states she is in pain management for neck and prescribed [place] and is ready to start physical therapy for this, and also states that she has a history of migraines and part of this feels like one. She states that she feels like all of this is due to her chronic neck pain that is worse in the past 2 days. She states the neck pain is not new. She has some numbness in her lower extremities proximally, I suspect this may be due to anxiety, as I discussed with her. I asked she and her if she has been confused and they both state no not acutely any different than usual. Her sodium is 124, she does not appear to necessarily be symptomatic from that. She states to me this is because I have to keep my bowels loose with medications. She also later adds that she took some Lasix recently which in my opinion would be more likely to cause her sodium to go down. She additionally was treated with morphine and then Reglan for symptoms and reevaluated. She is doing better. She states that she had some urinary hesitancy recently, and states she was not quite sure if she was going or not. She has a history of frequent urinary tract infections, and as a result she is on prophylactic daily low-dose cephalexin. She and her are asking if I will check a urine, she was able to do this and walked to the bathroom with assistance in order to provided. It does show leukocyte esterase but she always does, small amount of pyuria and small amount of bacteria. Unclear if this is true infection or not, we discussed options here and she is comfortable waiting for culture to come back. She is feeling better enough to be discharged home we will give her prescription for Reglan to use as needed and follow-up with her pain management doctor in the meantime she and are comfortable with that plan and answered all questions at the bedside. Blood pressure on recheck prior to discharge 141/64. Lab Data Attestation: I reviewed the patient's lab results. Labs: Laboratory Results - last 24 hr 03/30/23 03/31/23 23:54 02:22 WBC 6.7 RBC 4.02 L Hgb 12.0 Hct 34.0 L MCV 84.6 MCH 29.9 MCHC 35.3 RDW Std Deviation 37.0 RDW Coeff of Mahi 12.1 Plt Count 210 MPV 9.6 Immature Gran % (Auto) 0.600 Neut % (Auto) 76.7 H Lymph % (Auto) 16.2 L Ramsey % (Auto) 4.7 Eos % (Auto) 0.9 Baso % (Auto) 0.9 Absolute Neuts (auto) 5.1 Absolute Lymphs (auto) 1.08 Nucleated RBC % 0 Sodium 124 L Potassium 3.9 Chloride 94 L Carbon Dioxide 21.0 Anion Gap 9 BUN 10 Creatinine 0.73 Estim Creat Clear Calc 32.77 Est GFR (MDRD) Af Amer 99 Est GFR (MDRD) Non-Af 82 BUN/Creatinine Ratio 13.7 Glucose 129 H Calcium 9.2 Urine Color Yellow Urine Clarity Clear Urine pH 6.5 Ur Specific Gladys 1.005 Urine Protein Negative Urine Glucose (UA) Normal Urine Ketones 15 H Urine Occult Blood Negative Urine Nitrite Negative Urine Bilirubin Negative Urine Urobilinogen Normal Ur Leukocyte Esterase 500 H Urine RBC 0 SEEN Urine WBC 10-25 SEEN Ur Squamous Epith Cells 0-5 SEEN Urine Bacteria 1+ Urine Mucus 0 SEEN Radiography Diagnostic Testing: Clinical Impression(s) from Imaging Studies Brain CT 03/30/23 23:55 IMPRESSION: No acute abnormality. 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 Electronically Signed: America Kathleen MD at 0:34 EDT , Discharge Plan Triage Chief Complaint: Nausea/Vomiting ED Provider: Priyank Jaramillo Dx/Rx/DC Orders Clinical Impression: Accelerated hypertension, Headache, Hyponatremia, Chronic neck pain, Peripheral neuropathy Instructions: ED Chronic Pain, ED Hyponatremia Prescriptions: New metoclopramide HCl [metoclopramide HCl] 10 mg tablet 10 mg PO Q6H PRN (Reason: nausea and vomiting) Qty: 20 0RF No Action Flovent HFA 44 mcg/actuation HFA aerosol inhaler 1 inh INHALATION BID cholecalciferol (vitamin D3) 1,000 unit capsule 1,000 unit capsule 1,000 unit PO DAILY methylphenidate HCl 20 mg tablet 20 mg PO BID omeprazole 20 mg capsule,delayed release(DR/EC) 20 mg PO DAILY tolterodine 4 mg capsule,extended release 24hr 4 mg PO DAILY Hold Instructions: Resume on 05/24/22. nebivolol [Bystolic] 5 mg tablet 10 mg PO QHS albuterol sulfate 90 mcg/actuation HFA aerosol inhaler 2 inh inhalation PRN PRN (Reason: Shortness Of Breath) Patient Comments: INHALE 2 PUFFS BY MOUTH and into the lungs FOUR TIMES DAILY NEEDED beclomethasone dipropionate 80 mcg/actuation HFA aerosol breath activated 2 inh inhalation BID Patient Comments: INHALE 2 PUFFS BY MOUTH and into the lungs TWICE DAILY levothyroxine 50 MCG tablet 50 mcg PO DAILY Patient Comments: Thyroid alprazolam 1 MG tablet 1 mg PO TID PRN PRN (Reason: Anxiety) lidocaine 35 GM ointment 35 g topical TID PRN (Reason: Pain) Patient Comments: 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 Patient Comments: TAKE 1 TABLET BY MOUTH THREE TIMES DAILY NEEDED For PAIN ondansetron HCl [Zofran] 4 mg tablet 4 mg PO Q8H PRN (Reason: nausea and vomiting) Qty: 20 0RF Hold Instructions: Duplicate Order pregabalin 150 mg capsule 150 mg PO TID Patient Comments: TAKE 1 TABLET BY MOUTH THREE TIMES DAILY ondansetron 4 mg tablet,disintegrating 4 mg PO Q6H PRN (Reason: nausea and vomiting) Qty: 10 0RF cephalexin [cephalexin] 500 mg capsule 500 mg PO Q6 Qty: 28 0RF lisinopril 5 mg tablet 5 mg PO DAILY Qty: 30 0RF Hold Instructions: MD Ordered ondansetron 4 mg tablet,disintegrating 4 mg PO TID PRN (Reason: nausea and vomiting) Qty: 21 0RF losartan 25 mg tablet 50 mg PO BID Patient Comments: TAKE 1 TABLET BY MOUTH EVERY DAY nebivolol 10 mg tablet 20 mg PO .QAM Patient Comments: TAKE 2 TABLETS BY MOUTH IN THE MORNING AND TAKE 1 TABLET IN THE EVENING Primary Care Provider: Ronaldo Ruiz Referrals: Ronaldo Ruiz, [Primary Care Provider] - As soon as possible (for recheck of your sodium/chemistries) Activity Restrictions/Additional Instructions: Until you follow-up, avoid taking furosemide. Follow-up with your pain management doctor soon as possible. Disposition Disposition: Home, Self Care
[2023-03-31] MEDS: Ondansetron 4 MG/2 ML Vial IV (00:01)
[2023-03-31 00:03] LABS: Absolute Lymphocyte Count 1.08 X10^3/uL (0.83-4.51); Absolute Neutrophil Count 5.1 X10^3/uL (2.0-7.7); Basophil# 0.06 X10^3/uL; Basophil% 0.9 % (0-1); Eosinophil# 0.06 X10^3/uL; Eosinophils% 0.9 % (0-5); Lymphocyte # 1.08 X10^3/ul (0.83-4.51); Lymphocyte % 16.2 % (19-41); Mean Corp Hgb Conc 35.3 g/dL (32-36); Mean Corpuscular Hgb 29.9 pg (27.0-32.0); Mean Corpuscular Volume 84.6 fL (81-99); Mean Platelet Vol. 9.6 fl (6.2-12.0); Monocyte# 0.31 X10^3/uL; Monocyte% 4.7 % (0-10); NRBC Flagged by Analyzer 0 % (0-5); Neutrophil % 76.7 % (47-70); Platelet Count 210 K/mm3 (150-450); RBC Distribution Width CV 12.1 % (11.6-14.6); Red Blood Count 4.02 M/mm3 (4.2-5.4); White Blood Count 6.7 K/mm3 (4.4-11.0)
[2023-03-31 00:20] LABS: Anion Gap 9 (5-15); BUN 10 mg/dL (7-18); BUN/Creat Ratio 13.7 RATIO (10-20); Calcium,Total 9.2 mg/dL (8.5-10.1); Chloride 94 mmol/L (98-107); Creatinine, Serum 0.73 mg/dL (0.55-1.02); EST Glomerular Filtration Rate 82 mL/min (>60); Est Glom Filt Rate - Afr Amer 99 mL/min (>60); Estimated Creatinine Clearance 32.77 ml/min; Glucose 129 mg/dL (74-106); Potassium 3.9 mmol/L (3.5-5.1); Sodium Level 124 mmol/L (136-145)
[2023-03-31] MEDS: 0.9% Normal Saline 1,000 ML 150 ML IV (00:31)
[2023-03-31] MEDS: Morphine 4 MG/ML Syringe 2 MG IV (01:11)
[2023-03-31] MEDS: Metoclopramide 10 MG/2 ML Vial 5 MG IV (01:11)
[2023-03-31] MEDS: Morphine 4 MG/ML Syringe IV (02:05)
[2023-03-31 02:33] LABS: Color, Urine Yellow (Yellow); Glucose, Dipstick Normal (Normal); Ketone-Dipstick 15 mg/dl (Negative); Leukocyte Esterase-Dipstick 500 /ul (Negative); Mucous, Urine 0 SEEN /hpf (<or=2+); Nitrite-Dipstick Negative (Negative); Occult Blood-Urine Negative /ul (Negative); Protein-Dipstick Negative (Negative); Red Blood Cells-Urine 0 SEEN /hpf (0-5); Specific Gravity, Urine 1.005 (1.002-1.030); Urine Bilirubin Dipstick Negative (Negative); Urine Clarity Clear (Clear); Urine Urobilinogen Normal (Normal); Urine pH 6.5 (5.0 - 8.0)
[2023-03-31 02:40] LABS: Bacteria 1+ /hpf (None Seen); Squamous Epithelial Cells - UA 0-5 SEEN /hpf (5-10); White Blood Cells 10-25 SEEN /hpf (0-5)
[2023-03-31 02:56] VITALS: BP 141/64; PULSE 75; RESP 16; O2SAT 98
[2023-03-31] MEDS: Pregabalin 75 MG Capsule 150 MG PO (02:57)
[2023-03-31 03:09] VITALS: BP 141/64; PULSE 75; RESP 16
== END 2023-03-31 03:09 | disposition home or self-care (01) ==
PROVIDERS: Emergency Provider Emergency Medicine; PCP Family Medicine; Visit Provider Emergency Medicine
DX: I10 Essential (primary) hypertension (principal); E87.1 Hypo-osmolality and hyponatremia; E78.00 Pure hypercholesterolemia, unspecified; M54.2 Cervicalgia; R11.2 Nausea with vomiting, unspecified; Z87.891 Personal history of nicotine dependence; R51.9 Headache, unspecified; J45.909 Unspecified asthma, uncomplicated; K21.9 Gastro-esophageal reflux disease without esophagitis; Z79.899 Other long term (current) drug therapy; Z90.11 Acquired absence of right breast and nipple; Z90.49 Acquired absence of other specified parts of digestive tract; Z90.710 Acquired absence of both cervix and uterus; G62.9 Polyneuropathy, unspecified
CPT/HCPCS: 70450; 80048; 81001; 85025; 87086; 87088; 96361; 96374; 96375; 96376; 99285; J7030; A4216; J2405

== ENCOUNTER 2024-02-02 12:23 | Emergency (ER) | payer MEDICARE, OTHER, SELFPAY ==
[2024-02-02] VITALS (13 sets, daily range): BP systolic 125–157; BP diastolic 66–87; PULSE 62–87; RESP 16–19; TEMP 36.4–37.2; O2SAT 89–100; BMI 30.2
--- NOTE | 2024-02-02 12:38 | EKG12_ITS ---
Test Reason : SOB Blood Pressure : / mmHG Vent. Rate : 081 BPM Atrial Rate : 081 BPM P-R Int : 164 ms QRS Dur : 072 ms QT Int : 380 ms P-R-T Axes : 032 -28 -17 degrees QTc Int : 441 ms Normal sinus rhythm Cannot rule out Anterolateral infarct , age undetermined Abnormal ECG Confirmed by Norman Mercado ([id number]), news videotape editor CHARITO CATALAN ([id number]) on 02/03/2024 1:12:04 PM Referred By: Confirmed By:Norman Mercado
[2024-02-02 12:43] LABS: Absolute Lymphocyte Count 0.48 X10^3/uL (0.83-4.51); Basophil# 0.04 X10^3/uL; Basophil% 0.3 % (0-1); Eosinophil# 0.07 X10^3/uL; Eosinophils% 0.6 % (0-5); Hematocrit 31.5 % (37-47); Hemoglobin 10.3 g/dL (12.0-15.0); Lymphocyte # 0.48 X10^3/ul (0.83-4.51); Mean Corp Hgb Conc 32.7 g/dL (32-36); Mean Corpuscular Hgb 28.5 pg (27.0-32.0); Mean Platelet Vol. 9.5 fl (6.2-12.0); Monocyte# 0.31 X10^3/uL; Monocyte% 2.6 % (0-10); NRBC Flagged by Analyzer 0 % (0-5); Neutrophil # 10.95 X10^3/uL (2.7-7.7); Neutrophil % 92.1 % (47-70); POSITIVE DIFFERENTIAL YES; Platelet Count 181 K/mm3 (150-450); RBC Distribution Width SD 41.1 fl (35.1-43.9); Red Blood Count 3.62 M/mm3 (4.2-5.4); White Blood Count 11.9 K/mm3 (4.4-11.0)
--- NOTE | 2024-02-02 12:55 | RAD_ITS ---
STUDY: X-RAY CHEST REASON FOR EXAM: Female, 78 years old. Shortness of breath. TECHNIQUE: Frontal view of the chest COMPARISON: None. FINDINGS: The lungs are hyperinflated, but clear. There are no pleural effusions. There is no pneumothorax. The heart is normal in size. The visualized osseous structures are within normal limits. RAD/Chest 1 View IMPRESSION: No acute thoracic pathology. Electronically Signed: Nick Broderick MD at 13:30 EDT ,
[2024-02-02 13:01] LABS: Anion Gap 9 (5-15); BUN 6 mg/dL (7-18); BUN/Creat Ratio 6.8 RATIO (10-20); Calcium,Total 8.9 mg/dL (8.5-10.1); Chloride 99 mmol/L (98-107); Creatinine, Serum 0.88 mg/dL (0.55-1.02); EST Glomerular Filtration Rate 65 mL/min (>60); Est Glom Filt Rate - Afr Amer 79 mL/min (>60); Glucose 113 mg/dL (74-106); Potassium 3.6 mmol/L (3.5-5.1); Sodium Level 134 mmol/L (136-145); Troponin-I HS 4 pg/mL (3.0-54.0)
--- NOTE | 2024-02-02 14:04 | ED.VIS.DYS ---
HPI History of Present Illness Chief Complaint: Shortness of Breath Detail of Chief Complaint: Shortness of breath Informant: patient and spouse/S.O. Narrative Narrative: Patient presents to the emergency department complaint of shortness of breath that is been ongoing for about 5 weeks. Patient seen by her primary care physician today and referred to the ER. She complains of some mild exertional dyspnea. She has had a cough but mostly nonproductive. She denies fever. She does describe some wheezing. She tells me she has gained about 15 pounds in the last 2 months. She does not have a history of CHF or heart history. She tells me she had a heart cath about 4 years ago that was unremarkable. Patient states that she has been traveling back and forth to [facility] every week. She denies chest pain. No history of PE or DVT. Patient has history of COPD and is normally on 2 L nasal cannula O2. [facility] Medical History Arthritis Asthma Back problem Bilateral cataracts Breast cancer Bronchiectasis Carpal tunnel syndrome of left wrist Chronic pain COPD (chronic obstructive pulmonary disease) Difficulty balancing DVT (deep venous thrombosis) Former smoker Generalized weakness GERD (gastroesophageal reflux disease) High cholesterol history of blood clot Hypertension IBS (irritable bowel syndrome) Infection of kidney Kidney stones Knee pain Limb weakness Limb weakness Lymphedema Mass of right chest wall Migraines CISCO (obstructive sleep apnea) Osteoporosis Pneumonia Pulmonary embolism Pulmonary fibrosis Severe sepsis Shortness of breath Shoulder pain Spinal stenosis Thyroid disease Tumor of bladder neck Urinary retention UTI (urinary tract infection) Vitamin D deficiency Home Medications ?Medication ?Instructions ?Recorded ?Last Taken ?Type levothyroxine 50 mcg tablet 50 mcg PO DAILY 12/19/13 06/08/17 History alprazolam 1 mg tablet 1 mg PO TID PRN PRN Anxiety 02/16/17 03/22/21 23:00 History lidocaine 5 % topical ointment 35 g topical TID PRN Pain 03/11/18 Unknown History cholecalciferol (vitamin D3) 25 1,000 unit PO DAILY Check with 04/12/19 Unknown History mcg (1,000 unit) capsule primary doctor fluticasone propionate 44 1 inh inhalation BID Check with 04/12/19 Unknown History mcg/actuation HFA aerosol inhaler primary doctor (Flovent HFA) hydrocodone 10 mg-acetaminophen 1 tab PO .QID PRN Pain 03/24/21 03/30/23 History 325 mg tablet ondansetron HCl 4 mg tablet 4 mg PO Q8H PRN nausea and 03/25/21 Unknown Rx (Zofran) vomiting #20 tabs methylphenidate HCl 20 mg tablet 20 mg PO BID 02/14/22 Unknown History omeprazole 20 mg capsule,delayed 20 mg PO DAILY Check with primary 02/14/22 Unknown History release doctor pregabalin 150 mg capsule 150 mg PO TID Pain 02/14/22 Unknown History tolterodine 4 mg capsule,extended 4 mg PO DAILY Check with primary 02/14/22 Unknown History release 24 hr doctor albuterol sulfate 90 mcg/actuation 2 inh inhalation PRN PRN Shortness 02/17/22 Unknown History aerosol inhaler Of Breath beclomethasone dipropionate 80 2 inh inhalation BID Check with 02/17/22 Unknown History mcg/actuation HFA breath activated primary doctor aerosol ondansetron 4 mg disintegrating 4 mg PO Q6H PRN nausea and 06/17/22 Unknown Rx tablet vomiting #10 tabs cephalexin 500 mg capsule 500 mg PO Q6 #28 CAPSULES 08/28/22 Unknown Rx lisinopril 5 mg tablet 5 mg PO DAILY #30 tabs 08/28/22 Unknown Rx ondansetron 4 mg disintegrating 4 mg PO TID PRN nausea and 02/11/23 Unknown Rx tablet vomiting #21 tabs nebivolol 5 mg tablet (Bystolic) 10 mg PO QHS Check with primary 02/25/23 Unknown History doctor losartan 25 mg tablet 50 mg PO BID 03/31/23 Unknown History metoclopramide HCl 10 mg tablet 10 mg PO Q6H PRN nausea and 03/31/23 Unknown Rx vomiting #20 tabs nebivolol 10 mg tablet 20 mg PO .QAM 03/31/23 Unknown History prednisone 20 mg tablet 20 mg PO BID #14 tabs 02/02/24 Unknown Rx Allergy/AdvReac Type Severity Reaction Status Date / Time latex Allergy Mild Rash Verified 02/02/24 12:28 doxycycline Allergy Unknown weakness Verified 02/02/24 12:28 montelukast Allergy Unknown Rash Verified 02/02/24 12:28 Iodinated Contrast Media Allergy Other Verified 02/02/24 12:28 (iodine contrast) Sulfa (Sulfonamide Allergy Hives Verified 02/02/24 12:28 Antibiotics) oxycodone (From Percocet) AdvReac Other Verified 02/02/24 12:28 Family History Mother Cancer gastric cancer at 93 Father Emphysema lung Heart disease Brother Heart disease Diabetes Surgical History History of carpal tunnel surgery of left wrist H/O lateral meniscus repair of right knee History of cataract removal with insertion of prosthetic lens History of lumpectomy of right breast History of blepharoplasty History of hand surgery History of bladder suspension procedure History of spinal fusion History of cardiac catheterization History of excision of mass History of cholecystectomy H/O elbow surgery H/O knee surgery History of hysterectomy with bilateral oophorectomy History of appendectomy H/O right mastectomy Social History household members: spouse and other details: raising her great grandson current occupational status: retired Smoking Status: Never smoker Tobacco: How many years used: 15 how long ago did patient quit smoking: smoked less than a pack per week for 15 years alcohol intake: never substance use type: does not use additional social history: Does Take Aspirin Does Take Ibuprofen ROS ROS ED Review of Systems ROS Unobtainable: other Constitutional Constitutional ED: Reports lethargy; Denies chills, fever(s), sweats or weight loss Eyes Eyes: Denies blurry vision, change in vision or diplopia ENT ENT ED: Denies rhinorrhea or sore throat Cardiovascular Cardiovascular: Denies chest pain, orthopnea or racing heartbeat Respiratory/Chest Respiratory/Chest: Reports cough, dyspnea and dyspnea on exertion; Denies orthopnea or sputum Gastrointestinal Gastrointestinal: Denies abdominal pain, diarrhea, nausea or vomiting Genitourinary Genitourinary ED: Denies dysuria, hematuria or urinary frequency Musculoskeletal Musculoskeletal: Denies arthralgias, back pain, myalgias or neck pain Integumentary Denies abscess, Abrasions or rash Neurologic Neurologic: Denies headache(s) or weakness Psychiatric Psychiatric: Denies anxiety, depression or suicidal thoughts Endocrine Endocrinology: Denies polydipsia, polyphagia or polyuria Hematologic/Lymphatic Hematologic/Lymphatic: Denies easy bleeding, easy bruising or lymphadenopathy Allergic/Immunologic Allergic/Immunologic ED: Denies mouth swelling, tongue swelling or urticaria EXAM Physical Exam Const Vital Signs: 02/02/24 12:24 02/02/24 12:36 02/02/24 12:36 Temperature 98.9 F Temperature Source Temporal Pulse Rate 82 Respiratory Rate 16 Respiratory Effort Respiratory Depth Respiratory Pattern Blood Pressure 125/66 H Blood Pressure Mean 85 Pulse Ox 93 93 93 Oxygen Delivery Method Room Air Room Air Room Air Oxygen Flow Rate (L/min) 02/02/24 13:23 02/02/24 13:39 02/02/24 13:40 Temperature 97.5 F L Temperature Source Temporal Pulse Rate 74 73 Respiratory Rate 18 16 Respiratory Effort Normal Respiratory Depth Normal Respiratory Pattern Normal Blood Pressure 141/78 H 141/78 H Blood Pressure Mean 99 99 Pulse Ox 92 92 Oxygen Delivery Method Room Air Room Air Room Air Oxygen Flow Rate (L/min) 02/02/24 13:42 02/02/24 13:43 02/02/24 14:00 Temperature 97.6 F L Temperature Source Temporal Pulse Rate 73 Respiratory Rate 18 Respiratory Effort Respiratory Depth Respiratory Pattern Blood Pressure 147/75 H Blood Pressure Mean 99 Pulse Ox 89 94 96 Oxygen Delivery Method Room Air Nasal Cannula Nasal Cannula Oxygen Flow Rate (L/min) 2 2 Positive well nourished and well developed General Appearance ED: well developed and NAD HEENT Reports TM's clear and moist mucous membranes normocephalic and atraumatic; Negative for trauma or tenderness Tympanic Membrane ED: Yes TM's clear Eyes PERRL and EOMs intact bilaterally General Eye ED: Negative for pale conjunctiva or scleral icterus Neck no lymphadenopathy, supple and no JVD General: Negative for tenderness Chest Wall inspection of chest normal and palpation of chest normal Chest: Negative for tenderness Resp normal respiratory effort and clear to auscultation bilaterally Effort and Inspection: Negative for respiratory distress or pain with movement Auscultation: Negative for rhonchi, wheezes or diminished lung sounds Cardio regular rate, regular rhythm, S1 normal heart sound, S2 normal heart sound and no murmurs Peripheral Pulses: pulses 2+ throughout GI normal to inspection, nondistended, normoactive bowel sounds, soft to palpation, non-tender, non-distended and no masses Back/Spine no CVA tenderness and no thoracic nor lumbar tenderness Extremity normal to inspection General Extremety ED: Negative for edema General Extremity: Negative for edema Neuro oriented x3, CN's II-XII intact bilaterally, no sensory deficits noted and gait normal Sensorium / Orientation: awake, alert, oriented to person, oriented to place and oriented to time Motor Exam: strength 5/5 throughout and strength abnormal Psych mental status grossly normal Skin no rashes or lesions noted and no wounds MDM MDM MDM Narrative Medical decision making narrative: Patient presents with dyspnea for 5 weeks. She has been seen by her PCP and had been treated with antibiotics and steroids. Seen today and referred to the ER. She continues to complain of cough that is nonproductive. CBC with differential white count 11.9 with hemoglobin 10.3 and platelet count of 181. Chemistries unremarkable. Troponin normal at 4. D-dimer was elevated therefore CTA of the chest was ordered to rule out PE. Care of patient turned over to evening physician awaiting CTA results and final disposition. I feel that if her CTA is unremarkable she can be discharged to home with prescription for steroids and follow-up with pulmonology. Lab Data Attestation: I reviewed the patient's lab results. Labs: Laboratory Results - last 24 hr 02/02/24 12:35 WBC 11.9 H RBC 3.62 L Hgb 10.3 L Hct 31.5 L MCV 87.0 MCH 28.5 MCHC 32.7 RDW Std Deviation 41.1 RDW Coeff of Mahi 13.0 Plt Count 181 MPV 9.5 Immature Gran % (Auto) 0.400 Neut % (Auto) 92.1 H Lymph % (Auto) 4.0 L Norman % (Auto) 2.6 Eos % (Auto) 0.6 Baso % (Auto) 0.3 Absolute Neuts (auto) 11.0 H Absolute Lymphs (auto) 0.48 L Nucleated RBC % 0 Sodium 134 L Potassium 3.6 Chloride 99 Carbon Dioxide 26.0 Anion Gap 9 BUN 6 L Creatinine 0.88 Est GFR (MDRD) Af Amer 79 Est GFR (MDRD) Non-Af 65 BUN/Creatinine Ratio 6.8 L Glucose 113 H Calcium 8.9 Troponin I High Sens 4 Radiography Diagnostic Testing: Clinical Impression(s) from Imaging Studies Chest X-Ray 02/02/24 12:55 IMPRESSION: No acute thoracic pathology. Electronically Signed: Nick Broderick MD at 13:30 EDT , 1 view chest x-ray obtained interpreted by myself as no evidence of infiltrate or pneumothorax or acute disease process. Radiology in agreement. EKG Initial EKG: Attestation: I personally reviewed and interpreted this EKG as follows: Comments: Sinus rhythm with rate of 81 bpm with no acute ST segment changes Discharge Plan Triage Chief Complaint: Shortness of Breath ED Provider: Ranjit Salcido Dx/Rx/DC Orders Clinical Impression: Dyspnea, COPD exacerbation Instructions: ED COPD Flare, ED Dyspnea Prescriptions: New prednisone 20 mg tablet 20 mg PO BID Qty: 14 0RF No Action Flovent HFA 44 mcg/actuation HFA aerosol inhaler 1 inh INHALATION BID cholecalciferol (vitamin D3) 1,000 unit capsule 1,000 unit PO DAILY methylphenidate HCl 20 mg tablet 20 mg PO BID omeprazole 20 mg capsule,delayed release(DR/EC) 20 mg PO DAILY tolterodine 4 mg capsule,extended release 24hr 4 mg PO DAILY nebivolol [Bystolic] 5 mg tablet 10 mg PO QHS albuterol sulfate 90 mcg/actuation HFA aerosol inhaler 2 inh inhalation PRN PRN (Reason: Shortness Of Breath) Patient Comments: INHALE 2 PUFFS BY MOUTH and into the lungs FOUR TIMES DAILY NEEDED beclomethasone dipropionate 80 mcg/actuation HFA aerosol breath activated 2 inh inhalation BID Patient Comments: INHALE 2 PUFFS BY MOUTH and into the lungs TWICE DAILY levothyroxine 50 MCG tablet 50 mcg PO DAILY Patient Comments: Thyroid alprazolam 1 MG tablet 1 mg PO TID PRN PRN (Reason: Anxiety) lidocaine 35 GM ointment 35 g topical TID PRN (Reason: Pain) Patient 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: 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 hydrocodone-acetaminophen 10-325 mg tablet 1 tab PO .QID PRN (Reason: Pain) Patient Comments: TAKE 1 TABLET BY MOUTH THREE TIMES DAILY NEEDED For PAIN ondansetron HCl [Zofran] 4 mg tablet 4 mg PO Q8H PRN (Reason: nausea and vomiting) Qty: 20 0RF pregabalin 150 mg capsule 150 mg PO TID Patient Comments: TAKE 1 TABLET BY MOUTH THREE TIMES DAILY ondansetron 4 mg tablet,disintegrating 4 mg PO Q6H PRN (Reason: nausea and vomiting) Qty: 10 0RF cephalexin [cephalexin] 500 mg capsule 500 mg PO Q6 Qty: 28 0RF lisinopril 5 mg tablet 5 mg PO DAILY Qty: 30 0RF ondansetron 4 mg tablet,disintegrating 4 mg PO TID PRN (Reason: nausea and vomiting) Qty: 21 0RF losartan 25 mg tablet 50 mg PO BID Patient Comments: TAKE 1 TABLET BY MOUTH EVERY DAY nebivolol 10 mg tablet 20 mg PO .QAM Patient Comments: TAKE 2 TABLETS BY MOUTH IN THE MORNING AND TAKE 1 TABLET IN THE EVENING metoclopramide HCl [metoclopramide HCl] 10 mg tablet 10 mg PO Q6H PRN (Reason: nausea and vomiting) Qty: 20 0RF Primary Care Provider: Ronaldo Ruiz Referrals: Ronaldo Ruiz DO [Primary Care Provider] - Anthony Paulino MD [Med Staff - Active Staff] - 3-5 Days Print Language: Syrian
[2024-02-02 14:17] LABS: BNP,B-Type NATRIURETIC PEPTIDE 136.2 pg/mL (0-100)
[2024-02-02 14:25] LABS: D-Dimer Quantitative (DVT/PE) 1.85 FEU/ug/m (0.27-0.49)
--- NOTE | 2024-02-02 14:28 | CT_ITS ---
EXAM: CT ANGIOGRAPHY CHEST WITHOUT AND WITH INTRAVENOUS CONTRAST CLINICAL INDICATION: dyspnea, elevated d-dimer TECHNIQUE: Helically acquired angiography images were obtained of the chest without and with intravenous contrast. This CT exam was performed using one or more of the following dose reduction techniques: automated exposure control, adjustment of the mA and/or kV according to patient size, and/or use of iterative reconstruction technique. MIP reconstructed images were created and reviewed. CONTRAST: IV 75mL [id number] COMPARISON: No relevant prior studies available. FINDINGS: PULMONARY ARTERIES: Normal. Normal in caliber. No evidence of pulmonary embolism. AORTA: Normal. Normal in caliber. No evidence of dissection. GREAT VESSELS OF AORTIC ARCH: Normal. Normal in caliber. No evidence of dissection. LUNGS AND PLEURAL SPACES: Mild bibasilar and right upper lobe linear density suggestive of atelectatic change. No pulmonary consolidation. No pleural effusion or pneumothorax. No mass. HEART: Normal. Heart size is normal. No pericardial effusion. No significant coronary artery calcifications. MEDIASTINUM: Normal. No mediastinal or hilar adenopathy. Esophagus is unremarkable. No hiatal hernia. BONES/JOINTS: Normal. No suspicious lytic or blastic abnormality. SOFT TISSUES: Surgical changes of right mastectomy and axillary node dissection again seen. CT/CTA Chest W/WO Contrast IMPRESSION: No evidence of acute pulmonary embolism. Electronically Signed: Jose J Donald MD at 16:40 EDT ,
[2024-02-02] MEDS: DiphenhydrAMINE 50 MG/ML Syringe 25 MG IV (14:49)
[2024-02-02] MEDS: MethylPREDNISolone 125 MG/2 ML Vial IV (14:49)
[2024-02-02] MEDS: APIXABAN 5 MG TABLET 10 MG PO (18:08)
== END 2024-02-02 18:26 | disposition home or self-care (01) ==
PROVIDERS: Emergency Provider Emergency Medicine; PCP Family Medicine; Visit Provider Emergency Medicine
DX: R06.00 Dyspnea, unspecified (principal); J44.1 Chronic obstructive pulmonary disease with (acute) exacerbation; Z87.891 Personal history of nicotine dependence; Z85.3 Personal history of malignant neoplasm of breast; E78.00 Pure hypercholesterolemia, unspecified; I10 Essential (primary) hypertension; Z79.899 Other long term (current) drug therapy; Z79.51 Long term (current) use of inhaled steroids; K21.9 Gastro-esophageal reflux disease without esophagitis; Z90.49 Acquired absence of other specified parts of digestive tract; Z90.710 Acquired absence of both cervix and uterus; Z90.11 Acquired absence of right breast and nipple
CPT/HCPCS: 71045; 71275; 80048; 83880; 84484; 85025; 85379; 93005; 94760; 96374; 96375; 99284; Q9967; A4216

== ENCOUNTER 2024-02-21 14:34 | Emergency (ER) | payer MEDICARE, OTHER, SELFPAY ==
[2024-02-21 14:35] VITALS: BP 169/99; PULSE 62; RESP 20; TEMP 36.4; O2SAT 99; BMI 27.5
--- NOTE | 2024-02-21 15:13 | EX.ED.DYSGE1 ---
HPI History of Present Illness Chief Complaint: General Illness Informant: patient Narrative Narrative: Patient is an 78-year-old female with history of fibromyalgia, hypertension, hypothyroid, IBS, frequent urinary tract infections, COPD on 2 L of oxygen at baseline and recent diagnosis of DVT of her right lower extremity currently on Eliquis (started about 3 weeks ago) presenting with concerns of dehydration, nausea and vomiting, LUQ abd pain, dysuria, headache and elevated blood pressure. Patient states that she is on maintenance Keflex (250 mg daily) for frequent urinary tract infections. She just started this about a week ago before that was on a course of Augmentin for a lung infection and ear infection. She tells me the past few days she has been feeling dehydrated and started last night had nausea and vomiting. States she does vomiting bile. She is also been having urinary frequency and dysuria for the past few days. Since she started throwing up she been having pain in her left upper quadrant. She states her bowel movements been normal and she is continue to pass gas. She is also had diffuse headache. Patient did try to take a 5 mg hydrocodone for her headache prior to arrival. In addition she notes that her blood pressure was quite elevated at home 2 to 3 hours before coming in (199/150) so she took hydralazine. Patient has a chronic cough but denies any worsening of her respiratory symptoms. Does not report any chest pain. Denies any new swelling of her legs. No other complaints or concerns reported at this time. [facility] Medical History Carpal tunnel syndrome of left wrist IBS (irritable bowel syndrome) High cholesterol Back problem CISCO (obstructive sleep apnea) Bronchiectasis Pulmonary fibrosis Asthma Tumor of bladder neck Infection of kidney Pneumonia Lymphedema Spinal stenosis Vitamin D deficiency Bilateral cataracts Mass of right chest wall Breast cancer Urinary retention Severe sepsis Chronic pain Osteoporosis Kidney stones GERD (gastroesophageal reflux disease) Former smoker Pulmonary embolism COPD (chronic obstructive pulmonary disease) DVT (deep venous thrombosis) Migraines Generalized weakness Limb weakness Thyroid disease Limb weakness Difficulty balancing Knee pain Shoulder pain Shortness of breath Arthritis Hypertension history of blood clot UTI (urinary tract infection) Home Medications ?Medication ?Instructions ?Recorded ?Last Taken ?Type levothyroxine 50 mcg tablet 50 mcg PO DAILY 12/19/13 06/08/17 History alprazolam 1 mg tablet 1 mg PO TID PRN PRN Anxiety 02/16/17 03/22/21 23:00 History lidocaine 5 % topical ointment 35 g topical TID PRN Pain 03/11/18 Unknown History fluticasone propionate 44 1 inh inhalation BID Check with 04/12/19 Unknown History mcg/actuation HFA aerosol inhaler primary doctor (Flovent HFA) hydrocodone 10 mg-acetaminophen 1 tab PO .QID PRN Pain 03/24/21 03/30/23 History 325 mg tablet ondansetron HCl 4 mg tablet 4 mg PO Q8H PRN nausea and 03/25/21 Unknown Rx (Zofran) vomiting #20 tabs methylphenidate HCl 20 mg tablet 20 mg PO BID 02/14/22 Unknown History omeprazole 20 mg capsule,delayed 20 mg PO DAILY Check with primary 02/14/22 Unknown History release doctor tolterodine 4 mg capsule,extended 4 mg PO DAILY Check with primary 02/14/22 Unknown History release 24 hr doctor albuterol sulfate 90 mcg/actuation 2 inh inhalation PRN PRN Shortness 02/17/22 Unknown History aerosol inhaler Of Breath beclomethasone dipropionate 80 2 inh inhalation BID Check with 02/17/22 Unknown History mcg/actuation HFA breath activated primary doctor aerosol ondansetron 4 mg disintegrating 4 mg PO Q6H PRN nausea and 06/17/22 Unknown Rx tablet vomiting #10 tabs lisinopril 5 mg tablet 5 mg PO DAILY #30 tabs 08/28/22 Unknown Rx ondansetron 4 mg disintegrating 4 mg PO TID PRN nausea and 02/11/23 Unknown Rx tablet vomiting #21 tabs nebivolol 5 mg tablet (Bystolic) 10 mg PO QHS Check with primary 02/25/23 Unknown History doctor losartan 25 mg tablet 50 mg PO BID 03/31/23 Unknown History metoclopramide HCl 10 mg tablet 10 mg PO Q6H PRN nausea and 03/31/23 Unknown Rx vomiting #20 tabs nebivolol 10 mg tablet 20 mg PO .QAM 03/31/23 Unknown History apixaban 5 mg tablet (Eliquis) 5 mg PO BID #74 tabs 02/02/24 Unknown Rx prednisone 20 mg tablet 20 mg PO BID #14 tabs 02/02/24 Unknown Rx cephalexin 250 mg capsule 250 mg PO DAILY 02/21/24 Unknown History ergocalciferol (vitamin D2) 1,250 1,250 mcg PO QWEEK 02/21/24 Unknown History mcg (50,000 unit) capsule hydralazine 25 mg tablet 25 mg PO QHS 02/21/24 Unknown History ondansetron 4 mg disintegrating 4 mg PO Q8H PRN PRN Nausea #10 tabs 02/21/24 Unknown Rx tablet pregabalin 200 mg capsule 200 mg PO TID 02/21/24 Unknown History Allergy/AdvReac Type Severity Reaction Status Date / Time latex Allergy Mild Rash Verified 02/02/24 12:28 doxycycline Allergy Unknown weakness Verified 02/02/24 12:28 montelukast Allergy Unknown Rash Verified 02/02/24 12:28 Iodinated Contrast Media Allergy rash, Verified 02/02/24 16:29 (iodine contrast) swelling Sulfa (Sulfonamide Allergy Hives Verified 02/02/24 12:28 Antibiotics) oxycodone (From Percocet) AdvReac Other Verified 02/02/24 12:28 Family History Mother Cancer gastric cancer at 93 Father Emphysema lung Heart disease Brother Heart disease Diabetes Surgical History History of carpal tunnel surgery of left wrist H/O lateral meniscus repair of right knee History of cataract removal with insertion of prosthetic lens History of lumpectomy of right breast History of blepharoplasty History of hand surgery History of bladder suspension procedure History of spinal fusion History of cardiac catheterization History of excision of mass History of cholecystectomy H/O elbow surgery H/O knee surgery History of hysterectomy with bilateral oophorectomy History of appendectomy H/O right mastectomy Social History household members: spouse and other details: raising her great grandson current occupational status: retired Smoking Status: Never smoker Tobacco: How many years used: 15 how long ago did patient quit smoking: smoked less than a pack per week for 15 years alcohol intake: never substance use type: does not use additional social history: Does Take Aspirin Does Take Ibuprofen ROS ROS ED Constitutional Constitutional ED: Denies chills or fever(s) ENT ENT ED: Denies rhinorrhea or sore throat Cardiovascular Cardiovascular: Denies chest pain Respiratory/Chest Respiratory/Chest: Reports cough; Denies dyspnea Gastrointestinal Gastrointestinal: Reports abdominal pain, nausea and vomiting; Denies constipation, diarrhea or melena Genitourinary Genitourinary ED: Reports dysuria and urinary frequency Musculoskeletal Musculoskeletal: Reports back pain and myalgias Integumentary Denies rash Neurologic Neurologic: Reports headache(s); Denies paresthesias or weakness Psychiatric Psychiatric: Denies anxiety Hematologic/Lymphatic Hematologic/Lymphatic: Reports easy bleeding and easy bruising EXAM Physical Exam Const Vital Signs: 02/21/24 14:35 02/21/24 15:47 02/21/24 16:34 Temperature 97.6 F L Temperature Source Temporal Pulse Rate 62 71 Respiratory Rate 20 H 14 Respiratory Effort Normal Respiratory Pattern Normal Blood Pressure 169/99 H 148/74 H Blood Pressure Mean 122 98 Pulse Ox 99 99 Oxygen Delivery Method Nasal Cannula Room Air Oxygen Flow Rate (L/min) 2 02/21/24 18:00 02/21/24 18:23 Temperature 97.8 F Temperature Source Oral Pulse Rate 65 69 Respiratory Rate 12 18 Respiratory Effort Respiratory Pattern Blood Pressure 120/86 H 156/78 H Blood Pressure Mean 97 104 Pulse Ox 100 100 Oxygen Delivery Method Room Air Nasal Cannula Oxygen Flow Rate (L/min) 2 Positive well nourished and well developed General Appearance ED: well developed and NAD HEENT Reports moist mucous membranes HEENT Narrative: Serous effusions of the bilateral ears present, no bulging or erythema of Intermedic membranes pleasant Eyes PERRL and EOMs intact bilaterally Neck supple and no JVD Chest Wall inspection of chest normal and palpation of chest normal Resp normal respiratory effort Auscultation: diminished lung sounds Cardio regular rate and regular rhythm GI non-distended Auscultation: hypoactive bowel sounds Palpation: soft and tender LUQ; Negative for guarding Extremity normal to inspection General Extremety ED: Negative for edema or tenderness General Extremity: Negative for edema Neuro oriented x3 Sensorium / Orientation: alert Motor Exam: general weakness Psych mental status grossly normal Skin no rashes or lesions noted and no wounds MDM MDM MDM Narrative Medical decision making narrative: Patient is evaluated for generalized malaise, urinary frequency, nausea and vomiting as well as high blood pressure. She is already on 250 mg of daily Keflex for prevention of UTIs. She appears nontoxic. Her blood pressure is mildly elevated 169/99. She is 88 focal neurologic deficits on my exam. Will obtain workup looking for signs of underlying infection include urinary tract infection. Will get screening EKG. She does have a headache and was recently started on anticoagulation for DVT with Eliquis will also obtain a head CT. Patient is given a liter of IV fluid as she think she is dehydrated, IV morphine for her abdominal pain as well as Zofran for her nausea. Patient reevaluated. States she is feeling better. She is tolerating p.o. and ambulatory. Workup is largely negative except for mild hyponatremia (sodium is 127). She has a mild anemia with hemoglobin 11.0 however this appears to be her baseline. No signs of an acute infection. CT of the brain does not show any acute process. She is not hypoxic or complaining respiratory symptoms I do not think she requires a chest x-ray at this time (she is at her baseline O2). Patient will be discharged home. Urine culture is pending as patient is on daily suppression therapy for urinary tract infections which could obscure a UA result. In addition she is instructed to follow-up with her PCP next week for recheck of her sodium level to make sure that is improving. Discussed increasing her salt intake slightly. In addition patient's had poor p.o. intake and is on lisinopril which could cause salt wasting. Patient's blood pressure is stable and mildly elevated in the emergency room. Do not think she needs admitted for hypertensive emergency/accelerated hypertension. Patient and significant other agreeable plan of care. Patient discharged home in stable condition. Given return precautions History & Record Review Additional record(s) reviewed:: Prior labs Lab Data Attestation: I reviewed the patient's lab results. Labs: Laboratory Results - last 24 hr 02/21/24 02/21/24 15:25 15:45 WBC 5.6 RBC 3.65 L Hgb 11.0 L Hct 31.6 L MCV 86.6 MCH 30.1 MCHC 34.8 RDW Std Deviation 41.3 RDW Coeff of [place]i 13.2 Plt Count 137 L MPV 10.1 Immature Gran % (Auto) 0.400 Neut % (Auto) 73.0 H Lymph % (Auto) 16.8 L [place] % (Auto) 6.8 Eos % (Auto) 2.3 Baso % (Auto) 0.7 Absolute Neuts (auto) 4.1 Absolute Lymphs (auto) 0.94 Nucleated RBC % 0 Sodium 127 L Potassium 3.8 Chloride 94 L Carbon Dioxide 26.0 Anion Gap 7 BUN 8 Creatinine 0.72 Estim Creat Clear Calc 46.82 Est GFR (MDRD) Af Amer 100 Est GFR (MDRD) Non-Af 83 BUN/Creatinine Ratio 11.1 Glucose 105 Calcium 9.5 Total Bilirubin 0.90 AST 32 ALT 20 Alkaline Phosphatase 66 Total Protein 7.5 Albumin 3.6 Globulin 3.9 Albumin/Globulin Ratio 0.9 Lipase 10 L Urine Color Yellow Urine Clarity Clear Urine pH 8.0 Ur Specific [place] 1.010 Urine Protein Negative Urine Glucose (UA) Normal Urine Ketones Negative Urine Occult Blood Negative Urine Nitrite Negative Urine Bilirubin Negative Urine Urobilinogen Normal Ur Leukocyte Esterase Negative Urine RBC 0 SEEN Urine WBC 0 SEEN Ur Squamous Epith Cells 0 SEEN Urine Bacteria 0 SEEN Urine Mucus 0 SEEN Radiography Diagnostic Testing: Clinical Impression(s) from Imaging Studies Brain CT 02/21/24 16:00 IMPRESSION: There are no acute findings. Chronic involutional changes of the brain. Electronically Signed: Crow Main MD at 16:29 EDT Reading Location ID and State: [facility] / [place] , Service support , Rhythm Strip Rhythm Strip: Sinus Rhythm Rate: 69 Ectopy: None EKG Initial EKG: Attestation: I personally reviewed and interpreted this EKG as follows: Interpretation: Sinus Rhythm Comments: Normal sinus rhythm rate of 69 bpm Normal axis Normal intervals Normal ST segments Prior EKG tracings: available for review Prior: Unchanged Discharge Plan Triage Chief Complaint: General Illness ED Provider: Jessica Hawk Dx/Rx/DC Orders Clinical Impression: Hyponatremia, Benign essential hypertension, Headache, Malaise and fatigue Instructions: ED Dehydration (Adult), ED Hyponatremia Prescriptions: New ondansetron 4 mg tablet,disintegrating 4 mg PO Q8H PRN PRN (Reason: Nausea) Qty: 10 0RF No Action Flovent HFA 44 mcg/actuation HFA aerosol inhaler 1 inh INHALATION BID methylphenidate HCl 20 mg tablet 20 mg PO BID omeprazole 20 mg capsule,delayed release(DR/EC) 20 mg PO DAILY tolterodine 4 mg capsule,extended release 24hr 4 mg PO DAILY nebivolol [Bystolic] 5 mg tablet 10 mg PO QHS albuterol sulfate 90 mcg/actuation HFA aerosol inhaler 2 inh inhalation PRN PRN (Reason: Shortness Of Breath) Patient Comments: INHALE 2 PUFFS BY MOUTH and into the lungs FOUR TIMES DAILY NEEDED beclomethasone dipropionate 80 mcg/actuation HFA aerosol breath activated 2 inh inhalation BID Patient Comments: INHALE 2 PUFFS BY MOUTH and into the lungs TWICE DAILY levothyroxine 50 MCG tablet 50 mcg PO DAILY Patient Comments: Thyroid alprazolam 1 MG tablet 1 mg PO TID PRN PRN (Reason: Anxiety) lidocaine 35 GM ointment 35 g topical TID PRN (Reason: Pain) Patient Comments: 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 hydrocodone-acetaminophen 10-325 mg tablet 1 tab PO .QID PRN (Reason: Pain) Patient Comments: TAKE 1 TABLET BY MOUTH THREE TIMES DAILY NEEDED For PAIN ondansetron HCl [Zofran] 4 mg tablet 4 mg PO Q8H PRN (Reason: nausea and vomiting) Qty: 20 0RF ondansetron 4 mg tablet,disintegrating 4 mg PO Q6H PRN (Reason: nausea and vomiting) Qty: 10 0RF lisinopril 5 mg tablet 5 mg PO DAILY Qty: 30 0RF ondansetron 4 mg tablet,disintegrating 4 mg PO TID PRN (Reason: nausea and vomiting) Qty: 21 0RF losartan 25 mg tablet 50 mg PO BID Patient Comments: TAKE 1 TABLET BY MOUTH EVERY DAY nebivolol 10 mg tablet 20 mg PO .QAM Patient Comments: TAKE 2 TABLETS BY MOUTH IN THE MORNING AND TAKE 1 TABLET IN THE EVENING metoclopramide HCl [metoclopramide HCl] 10 mg tablet 10 mg PO Q6H PRN (Reason: nausea and vomiting) Qty: 20 0RF prednisone 20 mg tablet 20 mg PO BID Qty: 14 0RF Eliquis 5 mg tablet 5 mg PO BID Qty: 74 0RF Rx Instructions: 10 mg twice a day for the first week. Then 5 mg twice a day. cephalexin 250 mg capsule 250 mg PO DAILY hydralazine 25 mg tablet 25 mg PO QHS ergocalciferol (vitamin D2) 1,250 mcg (50,000 unit) capsule 1,250 mcg PO QWEEK pregabalin 200 mg capsule 200 mg PO TID Primary Care Provider: Ronaldo Ruiz Referrals: Ronaldo Ruiz, [Primary Care Provider] - Activity Restrictions/Additional Instructions: Your labs today overall reassuring. Your sodium was mildly low at 127 I recommend that you follow-up with your primary care doctor this coming week for recheck. Please make sure you are drinking enough fluids and slightly increase your salt intake. Return to the ER if you have progression of or worsening symptoms or further concerns. Print Language: Chilean Disposition Disposition: Home, Self Care
--- NOTE | 2024-02-21 15:15 | EKG12_ITS ---
Test Reason : GENERAL Blood Pressure : / mmHG Vent. Rate : 069 BPM Atrial Rate : 069 BPM P-R Int : 168 ms QRS Dur : 082 ms QT Int : 432 ms P-R-T Axes : 048 -10 -04 degrees QTc Int : 462 ms Normal sinus rhythm Nonspecific ST abnormality Abnormal ECG Confirmed by Norman Mercado ([id number]), film and video editor CHARITO CATALAN ([id number]) on 02/22/2024 11:25:32 AM Referred By: Confirmed By:Norman Mercado
[2024-02-21] MEDS: Morphine 4 MG/ML Syringe IV (15:29)
[2024-02-21] MEDS: Ondansetron 4 MG/2 ML Vial IV (15:29)
[2024-02-21 15:35] LABS: Absolute Lymphocyte Count 0.94 X10^3/uL (0.83-4.51); Absolute Neutrophil Count 4.1 X10^3/uL (2.0-7.7); Basophil# 0.04 X10^3/uL; Basophil% 0.7 % (0-1); Eosinophil# 0.13 X10^3/uL; Eosinophils% 2.3 % (0-5); Hematocrit 31.6 % (37-47); Lymphocyte # 0.94 X10^3/ul (0.83-4.51); Lymphocyte % 16.8 % (19-41); Mean Corp Hgb Conc 34.8 g/dL (32-36); Mean Corpuscular Hgb 30.1 pg (27.0-32.0); Mean Corpuscular Volume 86.6 fL (81-99); Mean Platelet Vol. 10.1 fl (6.2-12.0); Monocyte# 0.38 X10^3/uL; Monocyte% 6.8 % (0-10); NRBC Flagged by Analyzer 0 % (0-5); Neutrophil # 4.08 X10^3/uL (2.7-7.7); Platelet Count 137 K/mm3 (150-450); RBC Distribution Width CV 13.2 % (11.6-14.6); RBC Distribution Width SD 41.3 fl (35.1-43.9); Red Blood Count 3.65 M/mm3 (4.2-5.4); White Blood Count 5.6 K/mm3 (4.4-11.0)
[2024-02-21] MEDS: 0.9% Normal Saline (1000mL) 1,000 ML 1000 ML IV (15:46)
[2024-02-21 15:48] LABS: Bacteria 0 SEEN /hpf (None Seen); Mucous, Urine 0 SEEN /hpf (<or=2+); Red Blood Cells-Urine 0 SEEN /hpf (0-5); Squamous Epithelial Cells - UA 0 SEEN /hpf (5-10); White Blood Cells 0 SEEN /hpf (0-5)
[2024-02-21 15:54] LABS: ALB/GLOB Ratio 0.9 RATIO (0.9-2.4); AST(SGOT) 32 U/L (15-37); Alanine Aminotransfer ALT/SGPT 20 U/L (13-56); Albumin, Serum 3.6 g/dL (3.2-5.0); Alkaline Phosphatase 66 U/L (45-117); Anion Gap 7 (5-15); BUN 8 mg/dL (7-18); BUN/Creat Ratio 11.1 RATIO (10-20); Calcium,Total 9.5 mg/dL (8.5-10.1); Chloride 94 mmol/L (98-107); Creatinine, Serum 0.72 mg/dL (0.55-1.02); EST Glomerular Filtration Rate 83 mL/min (>60); Est Glom Filt Rate - Afr Amer 100 mL/min (>60); Estimated Creatinine Clearance 46.82 ml/min; Globulin 3.9 g/dL (2.2-4.2); Glucose 105 mg/dL (74-106); Lipase 10 U/L (13-75); Potassium 3.8 mmol/L (3.5-5.1); Protein, Total 7.5 g/dL (6.4-8.2); Sodium Level 127 mmol/L (136-145)
--- NOTE | 2024-02-21 16:00 | CT_ITS ---
STUDY: CT BRAIN WITHOUT CONTRAST REASON FOR EXAM: Female, 78 years old. headache Individualized dose optimization techniques were used for this CT. TECHNIQUE: Transaxial CT imaging of the brain was performed without administration of intravenous contrast material. COMPARISON: 03/31/2023 FINDINGS: There are calcifications around the carotid artery. These are noted in the cavernous carotid arteries. Normal calvarium. Normal soft tissues. There is mild cerebral atrophy with widening of the extra-axial spaces and ventricular dilatation. There are areas of decreased attenuation within the white matter tracts of the supratentorial brain, consistent with microvascular disease changes. Normal basal ganglia and thalami. Normal brainstem. There is mild cerebellar atrophy. There is no intracranial hemorrhage. There are no findings of an acute ischemic infarction. Normal visualized paranasal sinuses. ASPECTS Score for Acute Strokes: 06/23 CT/Brain/Head without Contrast IMPRESSION: There are no acute findings. Chronic involutional changes of the brain. Electronically Signed: Crow Main MD at 16:29 EDT ,
[2024-02-21 16:27] LABS: Color, Urine Yellow (Yellow); Glucose, Dipstick Normal (Normal); Ketone-Dipstick Negative (Negative); Leukocyte Esterase-Dipstick Negative /ul (Negative); Nitrite-Dipstick Negative (Negative); Occult Blood-Urine Negative /ul (Negative); Protein-Dipstick Negative (Negative); Urine Bilirubin Dipstick Negative (Negative); Urine Clarity Clear (Clear); Urine Urobilinogen Normal (Normal)
[2024-02-21 16:34] VITALS: BP 148/74; PULSE 71; RESP 14; O2SAT 99
[2024-02-21 18:00] VITALS: BP 120/86; PULSE 65; RESP 12; O2SAT 100
[2024-02-21 18:23] VITALS: BP 156/78; PULSE 69; RESP 18; TEMP 36.6; O2SAT 100
[2024-02-21 19:14] VITALS: BP 147/91; PULSE 75; RESP 12; TEMP 35.9; O2SAT 93
== END 2024-02-21 19:18 | disposition home or self-care (01) ==
PROVIDERS: Emergency Provider Emergency Medicine; PCP Family Medicine; Visit Provider Emergency Medicine
DX: R53.81 Other malaise (principal); J44.9 Chronic obstructive pulmonary disease, unspecified; Z87.891 Personal history of nicotine dependence; R10.12 Left upper quadrant pain; R51.9 Headache, unspecified; E87.1 Hypo-osmolality and hyponatremia; E86.0 Dehydration; I10 Essential (primary) hypertension; R53.83 Other fatigue; E78.00 Pure hypercholesterolemia, unspecified; Z85.3 Personal history of malignant neoplasm of breast; Z79.899 Other long term (current) drug therapy; Z79.51 Long term (current) use of inhaled steroids; K21.9 Gastro-esophageal reflux disease without esophagitis; Z90.49 Acquired absence of other specified parts of digestive tract; Z90.710 Acquired absence of both cervix and uterus; Z90.11 Acquired absence of right breast and nipple; R11.0 Nausea
CPT/HCPCS: 70450; 80053; 81001; 83690; 85025; 87086; 93005; 96361; 96374; 96375; 99284; J7030; A4216; J2405

== ENCOUNTER 2024-10-18 21:44 | Emergency (ER) | payer MEDICARE, OTHER, SELFPAY ==
[2024-10-18 21:46] VITALS: BP 199/70; PULSE 65; RESP 15; TEMP 35.8; O2SAT 99; BMI 29.7
[2024-10-18 22:01] VITALS: BP 179/80; PULSE 60; RESP 9; O2SAT 98
--- NOTE | 2024-10-18 22:22 | CT_ITS ---
PROCEDURE: BRAIN/HEAD WITHOUT CONTRAST REASON FOR EXAM: Nausea. TECHNIQUE: CT of the head without contrast was performed. COMPARISON: 02/21/2024 CT. FINDINGS: Moderate global parenchymal atrophy. Periventricular white matter hypodensity likely representing mild chronic microvascular ischemia. Right occipital encephalomalacia. Bilateral basal nucleus chronic lacunar infarctions. No evidence of acute hemorrhage or infarction. No extra-axial blood or fluid collections. CT/Brain/Head without Contrast IMPRESSION: No acute intracranial abnormality. Chronic and ancillary findings as above. One or more dose reduction techniques were used (e.g., Automated exposure contr ol, adjustment of the mA and/or kV according to patient size, use of iterative reconstruction technique). Reading Location: [id number]
--- NOTE | 2024-10-18 22:22 | EKG12_ITS ---
Test Reason : DYSRHYTHMIA Blood Pressure : */* mmHG Vent. Rate : 66 BPM Atrial Rate : 66 BPM P-R Int : 154 ms QRS Dur : 84 ms QT Int : 422 ms P-R-T Axes : 42 -2 -3 degrees QTcB Int : 442 ms Normal sinus rhythm Nonspecific ST abnormality Abnormal ECG Confirmed by MANSOOR FRIEDMAN, CONNOR ([id number]), pictures editor CHARITO CATALAN ([id number]) on 10/20/2024 7:10:17 AM Referred By: Confirmed By: CONNOR MAX MD
[2024-10-18 22:34] LABS: Absolute Lymphocyte Count 1.28 X10^3/uL (0.83-4.51); Absolute Neutrophil Count 2.3 X10^3/uL (2.0-7.7); Basophil# 0.05 X10^3/uL; Basophil% 1.2 % (0-1); Eosinophil# 0.17 X10^3/uL; Eosinophils% 4.1 % (0-5); Hemoglobin 10.4 g/dL (12.0-15.0); Lymphocyte # 1.28 X10^3/ul (0.83-4.51); Lymphocyte % 31.1 % (19-41); Mean Corp Hgb Conc 34.7 g/dL (32-36); Mean Corpuscular Hgb 29.7 pg (27.0-32.0); Mean Corpuscular Volume 85.7 fL (81-99); Mean Platelet Vol. 10.4 fl (6.2-12.0); Monocyte# 0.35 X10^3/uL; Monocyte% 8.5 % (0-10); NRBC Flagged by Analyzer 0 % (0-5); Neutrophil # 2.25 X10^3/uL (2.7-7.7); Neutrophil % 54.9 % (47-70); Platelet Count 169 K/mm3 (150-450); RBC Distribution Width CV 12.3 % (11.6-14.6); RBC Distribution Width SD 38.3 fl (35.1-43.9); White Blood Count 4.1 K/mm3 (4.4-11.0)
[2024-10-18] MEDS: Ondansetron 4 MG/2 ML Vial IV (22:35)
[2024-10-18] MEDS: hydrALAZINE 20 MG/ML Vial 10 MG IV (22:35)
[2024-10-18] MEDS: cloNIDine HCl 0.1 MG Tablet PO (22:35)
[2024-10-18 22:47] LABS: Anion Gap 10 (5-15); BUN 7 mg/dL (7-18); Calcium,Total 8.9 mg/dL (8.5-10.1); Chloride 96 mmol/L (98-107); Creatinine, Serum 0.88 mg/dL (0.55-1.02); EST Glomerular Filtration Rate 66 mL/min (>60); Est Glom Filt Rate - Afr Amer 79 mL/min (>60); Estimated Creatinine Clearance 43.44 ml/min; Glucose 110 mg/dL (74-106); Potassium 3.6 mmol/L (3.5-5.1); Sodium Level 130 mmol/L (136-145)
--- NOTE | 2024-10-18 23:04 | ED.RN ---
Patient transported to CT
--- NOTE | 2024-10-18 23:10 | ED.RN ---
Patient returned from CT
[2024-10-18] MEDS: proCHLORPERazine 10 MG/2 ML Vial 5 MG IV (23:59)
[2024-10-18] MEDS: Ketorolac 15 MG/ML Vial IV (23:59)
[2024-10-19] VITALS: BP 123/54; PULSE 72; RESP 17; O2SAT 96
[2024-10-19] MEDS: Lidocaine 2% Viscous15 ML UDC 15 ML PO
[2024-10-19] MEDS: Mag Hydrox/Al Hydrox/Simeth 30 ML UDC PO
[2024-10-19 00:16] LABS: D-Dimer Quantitative (DVT/PE) 0.68 FEU/ug/m (0.27-0.49)
[2024-10-19 00:20] LABS: AST(SGOT) 22 U/L (15-37); Alanine Aminotransfer ALT/SGPT 17 U/L (13-56); Albumin, Serum 3.8 g/dL (3.2-5.0); Alkaline Phosphatase 68 U/L (45-117); Bilirubin, Direct 0.13 mg/dL (0.00-0.30); Globulin 3.5 g/dL (2.2-4.2); Lipase 10 U/L (13-75); Protein, Total 7.3 g/dL (6.4-8.2)
--- NOTE | 2024-10-19 00:37 | EX.ED.DYSGE1 ---
HPI History of Present Illness Chief Complaint: Hypertension Informant: patient Narrative Narrative: Patient is an 79-year-old female with past medical history of of hypertension hypothyroidism fibromyalgia and anxiety. She states that she has a plan in place with her doctor that if her blood pressure spikes she can take extra hydralazine. She states today she took her medications as directed but then noticed her blood pressure was still running high so she took her dose of hydralazine with minimal symptom improvement and therefore comes in for evaluation. She states that she has had headache with fatigue and bouts of nausea and vomiting and was recently around her grandchild who has been sick. She denies any excessive stimulant use or illicit drug use. She denies any chest pain but as she cannot get her blood pressure under control presents for evaluation [facility] Medical History Carpal tunnel syndrome of left wrist IBS (irritable bowel syndrome) High cholesterol Back problem CISCO (obstructive sleep apnea) Bronchiectasis Pulmonary fibrosis Asthma Tumor of bladder neck Infection of kidney Pneumonia Lymphedema Spinal stenosis Vitamin D deficiency Bilateral cataracts Mass of right chest wall Breast cancer Urinary retention Severe sepsis Chronic pain Osteoporosis Kidney stones GERD (gastroesophageal reflux disease) Former smoker Pulmonary embolism COPD (chronic obstructive pulmonary disease) DVT (deep venous thrombosis) Migraines Generalized weakness Limb weakness Thyroid disease Limb weakness Difficulty balancing Knee pain Shoulder pain Shortness of breath Arthritis Hypertension history of blood clot UTI (urinary tract infection) Home Medications ?Medication ?Instructions ?Recorded ?Last Taken ?Type levothyroxine 50 mcg tablet 50 mcg PO DAILY 12/19/13 06/08/17 History alprazolam 1 mg tablet 1 mg PO TID PRN PRN Anxiety 02/16/17 03/22/21 23:00 History lidocaine 5 % topical ointment 35 g topical TID PRN Pain 03/11/18 Unknown History fluticasone propionate 44 1 inh inhalation BID Check with 04/12/19 Unknown History mcg/actuation HFA aerosol inhaler primary doctor (Flovent HFA) hydrocodone 10 mg-acetaminophen 1 tab PO .QID PRN Pain 03/24/21 03/30/23 History 325 mg tablet Held on 05/21/22. Instructions: Resume on 05/23/22. ondansetron HCl 4 mg tablet 4 mg PO Q8H PRN nausea and 03/25/21 Unknown Rx (Zofran) vomiting #20 tabs Held on 03/31/23. Instructions: Duplicate Order methylphenidate HCl 20 mg tablet 20 mg PO BID 02/14/22 Unknown History omeprazole 20 mg capsule,delayed 20 mg PO DAILY Check with primary 02/14/22 Unknown History release doctor tolterodine 4 mg capsule,extended 4 mg PO DAILY Check with primary 02/14/22 Unknown History release 24 hr doctor Held on 05/21/22. Instructions: Resume on 05/24/22. albuterol sulfate 90 mcg/actuation 2 inh inhalation PRN PRN Shortness 02/17/22 Unknown History aerosol inhaler Of Breath beclomethasone dipropionate 80 2 inh inhalation BID Check with 02/17/22 Unknown History mcg/actuation HFA breath activated primary doctor aerosol ondansetron 4 mg disintegrating 4 mg PO Q6H PRN nausea and 06/17/22 Unknown Rx tablet vomiting #10 tabs lisinopril 5 mg tablet 5 mg PO DAILY #30 tabs 08/28/22 Unknown Rx Held on 03/31/23. Instructions: MD Ordered ondansetron 4 mg disintegrating 4 mg PO TID PRN nausea and 02/11/23 Unknown Rx tablet vomiting #21 tabs nebivolol 5 mg tablet (Bystolic) 10 mg PO QHS Check with primary 02/25/23 Unknown History doctor losartan 25 mg tablet 50 mg PO BID 03/31/23 Unknown History metoclopramide HCl 10 mg tablet 10 mg PO Q6H PRN nausea and 03/31/23 Unknown Rx vomiting #20 tabs nebivolol 10 mg tablet 20 mg PO .QAM 03/31/23 Unknown History apixaban 5 mg tablet (Eliquis) 5 mg PO BID #74 tabs 02/02/24 Unknown Rx prednisone 20 mg tablet 20 mg PO BID #14 tabs 02/02/24 Unknown Rx cephalexin 250 mg capsule 250 mg PO DAILY 02/21/24 Unknown History ergocalciferol (vitamin D2) 1,250 1,250 mcg PO QWEEK 02/21/24 Unknown History mcg (50,000 unit) capsule hydralazine 25 mg tablet 25 mg PO QHS 02/21/24 Unknown History ondansetron 4 mg disintegrating 4 mg PO Q8H PRN PRN Nausea #10 tabs 02/21/24 Unknown Rx tablet pregabalin 200 mg capsule 200 mg PO TID 02/21/24 Unknown History prochlorperazine maleate 5 mg 5 mg PO TID PRN nausea and 10/19/24 Unknown Rx tablet (Compazine) vomiting 7 days #21 tabs Allergy/AdvReac Type Severity Reaction Status Date / Time latex Allergy Mild Rash Verified 10/18/24 21:46 doxycycline Allergy Unknown weakness Verified 10/18/24 21:46 montelukast Allergy Unknown Rash Verified 10/18/24 21:46 Iodinated Contrast Media Allergy rash, Verified 10/18/24 21:46 (iodine contrast) swelling Sulfa (Sulfonamide Allergy Hives Verified 10/18/24 21:46 Antibiotics) oxycodone (From Percocet) AdvReac Other Verified 10/18/24 21:46 Family History Mother Cancer gastric cancer at 93 Father Emphysema lung Heart disease Brother Heart disease Diabetes Surgical History History of carpal tunnel surgery of left wrist H/O lateral meniscus repair of right knee History of cataract removal with insertion of prosthetic lens History of lumpectomy of right breast History of blepharoplasty History of hand surgery History of bladder suspension procedure History of spinal fusion History of cardiac catheterization History of excision of mass History of cholecystectomy H/O elbow surgery H/O knee surgery History of hysterectomy with bilateral oophorectomy History of appendectomy H/O right mastectomy Social History household members: spouse and other details: raising her great grandson current occupational status: retired Smoking Status: Never smoker Tobacco: How many years used: 15 how long ago did patient quit smoking: smoked less than a pack per week for 15 years alcohol intake: never substance use type: does not use additional social history: Does Take Aspirin Does Take Ibuprofen ROS ROS ED Constitutional Constitutional ED: Denies chills or fever(s) Eyes Eyes: Denies blurry vision or change in vision ENT ENT ED: Reports rhinorrhea and sore throat Cardiovascular Cardiovascular: Denies chest pain, palpitations or racing heartbeat Respiratory/Chest Respiratory/Chest: Denies cough or dyspnea Gastrointestinal Gastrointestinal: Reports nausea and vomiting; Denies abdominal pain or diarrhea Genitourinary Genitourinary ED: Denies dysuria Musculoskeletal Musculoskeletal: Denies myalgias Integumentary Denies rash Neurologic Neurologic: Reports headache(s) Hematologic/Lymphatic Hematologic/Lymphatic: Reports easy bleeding and easy bruising EXAM Physical Exam Const Vital Signs: 10/18/24 21:46 10/18/24 22:01 10/18/24 22:02 Temperature 96.5 F L Temperature Source Temporal Pulse Rate 65 60 Respiratory Rate 15 9 L Respiratory Effort Normal Respiratory Pattern Normal Blood Pressure 199/70 H 179/80 H Blood Pressure Mean 113 113 Pulse Ox 99 98 Oxygen Delivery Method Room Air Room Air 10/19/24 00:00 10/19/24 00:38 Temperature 98.7 F Temperature Source Pulse Rate 72 67 Respiratory Rate 17 12 Respiratory Effort Respiratory Pattern Blood Pressure 123/54 H 113/56 L Blood Pressure Mean 77 75 Pulse Ox 96 93 Oxygen Delivery Method Room Air Positive well nourished and well developed General Appearance ED: well developed; Negative for pallor HEENT HEENT Narrative: Normocephalic atraumatic Cobblestoning is noted in the posterior pharynx consistent with sinus drainage without airway edema or compromise. No secondary findings to suggest infection Eyes PERRL and EOMs intact bilaterally General Eye ED: Negative for scleral icterus Neck supple Neck Narrative: No nuchal rigidity or meningeal signs No crepitance or subcutaneous emphysema noted Chest Wall palpation of chest normal Resp normal respiratory effort and clear to auscultation bilaterally Cardio regular rate and regular rhythm Rate: other Other Details: Heart is regular rate and rhythm Radial and carotid pulses are equal and symmetric GI non-tender, non-distended and no masses GI Narrative: Abdomen is soft nontender nondistended with hyperactive bowel sounds. No voluntary guarding or rigidity or pulsatile mass Auscultation: hyperactive bowel sounds Palpation: soft Extremity normal to inspection Extremity Narrative: No asymmetric edema no pitting edema negative Homans' sign bilaterally Neuro oriented x3, CN's II-XII intact bilaterally and no sensory deficits noted Neuro Narrative: GCS of 15 Cranial nerves II through XII are grossly intact without focal neurologic deficit No pronator drift no dysmetria no truncal ataxia NIH stroke scale score of 0 Sensorium / Orientation: alert Motor Exam: strength 5/5 throughout Psych mental status grossly normal Mood & Affect: anxious Skin no rashes or lesions noted General Skin Exam: Negative for jaundice or pallor MDM MDM MDM Narrative Medical decision making narrative: Patient presented to the ER hypertensive but otherwise with stable vitals. She has a known history of hypertension and has been taking her medications as directed. She has bouts of nausea and vomiting and was recently around her sick grandchild. There is concern that her hypertension is secondary to a viral illness such as norovirus or rotavirus. Patient may also have COVID influenza or RSV. In order to ensure no endorgan damage such as a spontaneous subarachnoid or subdural hemorrhage as she is on Eliquis from history of previous DVTs a head CT will be obtained. To rule out acute kidney injury biliary dysfunction or pancreatitis or as clinically significant electrolyte abnormality basic blood work was ordered as well. Based on her hypertension in order to rule out a potential dissection a D-dimer was ordered. D-dimer is normal for her age going against dissection blood work reveals no signs of PAUL clinically significant electrolyte abnormality or signs of pancreatitis. EKG was sinus rhythm without ischemic changes and head CT revealed no underlying pathology. After receiving medication in the ER her blood pressure normalized and she had resolution of her emesis. Therefore at this time with a normal neurologic exam overall negative workup and resolution of symptoms there is no need for further evaluation in the ER and she is otherwise safe for discharge History & Record Review Discussion w/independent historian: Patient Lab Data Attestation: I reviewed the patient's lab results. Labs: Laboratory Results - last 24 hr 10/18/24 10/18/24 22:08 23:54 WBC 4.1 L RBC 3.50 L Hgb 10.4 L Hct 30.0 L MCV 85.7 MCH 29.7 MCHC 34.7 RDW Std Deviation 38.3 RDW Coeff of Mahi 12.3 Plt Count 169 MPV 10.4 Immature Gran % (Auto) 0.200 Neut % (Auto) 54.9 Lymph % (Auto) 31.1 Mason % (Auto) 8.5 Eos % (Auto) 4.1 Baso % (Auto) 1.2 H Absolute Neuts (auto) 2.3 Absolute Lymphs (auto) 1.28 Nucleated RBC % 0 D-Dimer Quant (PE/DVT) 0.68 H* Sodium 130 L Potassium 3.6 Chloride 96 L Carbon Dioxide 25.0 Anion Gap 10 BUN 7 Creatinine 0.88 Estim Creat Clear Calc 43.44 Est GFR (MDRD) Af Amer 79 Est GFR (MDRD) Non-Af 66 BUN/Creatinine Ratio 8.0 L Glucose 110 H Calcium 8.9 Total Bilirubin 0.40 Direct Bilirubin 0.13 AST 22 ALT 17 Alkaline Phosphatase 68 Total Protein 7.3 Albumin 3.8 Globulin 3.5 Lipase 10 L Radiography Diagnostic Testing: Clinical Impression(s) from Imaging Studies Brain CT 10/18/24 22:22 IMPRESSION: No acute intracranial abnormality. Chronic and ancillary findings as above. One or more dose reduction techniques were used (e.g., Automated exposure control, adjustment of the mA and/or kV according to patient size, use of iterative reconstruction technique). Reading Location: [facility] Discharge Plan Triage Chief Complaint: Hypertension ED Provider: Jeremiah Mccormack Dx/Rx/DC Orders Clinical Impression: Accelerated hypertension, Nausea & vomiting, Hypothyroidism, Fibromyalgia syndrome, Current use of long term care pharmacist anticoagulation Instructions: ED Hypertension, Established, ED Gastroenteritis, Viral (Adult) Prescriptions: New prochlorperazine maleate [Compazine] 5 mg tablet 5 mg PO TID PRN (Reason: nausea and vomiting) 7 Days Qty: 21 0RF No Action Flovent HFA 44 mcg/actuation HFA aerosol inhaler 1 inh INHALATION BID methylphenidate HCl 20 mg tablet 20 mg PO BID omeprazole 20 mg capsule,delayed release(DR/EC) 20 mg PO DAILY tolterodine 4 mg capsule,extended release 24hr 4 mg PO DAILY nebivolol [Bystolic] 5 mg tablet 10 mg PO QHS albuterol sulfate 90 mcg/actuation HFA aerosol inhaler 2 inh inhalation PRN PRN (Reason: Shortness Of Breath) Patient Comments: INHALE 2 PUFFS BY MOUTH and into the lungs FOUR TIMES DAILY NEEDED beclomethasone dipropionate 80 mcg/actuation HFA aerosol breath activated 2 inh inhalation BID Patient Comments: INHALE 2 PUFFS BY MOUTH and into the lungs TWICE DAILY levothyroxine 50 MCG tablet 50 mcg PO DAILY Patient Comments: Thyroid alprazolam 1 MG tablet 1 mg PO TID PRN PRN (Reason: Anxiety) lidocaine 35 GM ointment 35 g topical TID PRN (Reason: Pain) Patient Comments: 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 hydrocodone-acetaminophen 10-325 mg tablet 1 tab PO .QID PRN (Reason: Pain) Patient Comments: TAKE 1 TABLET BY MOUTH THREE TIMES DAILY NEEDED For PAIN ondansetron HCl [Zofran] 4 mg tablet 4 mg PO Q8H PRN (Reason: nausea and vomiting) Qty: 20 0RF ondansetron 4 mg tablet,disintegrating 4 mg PO Q6H PRN (Reason: nausea and vomiting) Qty: 10 0RF lisinopril 5 mg tablet 5 mg PO DAILY Qty: 30 0RF ondansetron 4 mg tablet,disintegrating 4 mg PO TID PRN (Reason: nausea and vomiting) Qty: 21 0RF losartan 25 mg tablet 50 mg PO BID Patient Comments: TAKE 1 TABLET BY MOUTH EVERY DAY nebivolol 10 mg tablet 20 mg PO .QAM Patient Comments: TAKE 2 TABLETS BY MOUTH IN THE MORNING AND TAKE 1 TABLET IN THE EVENING metoclopramide HCl [metoclopramide HCl] 10 mg tablet 10 mg PO Q6H PRN (Reason: nausea and vomiting) Qty: 20 0RF prednisone 20 mg tablet 20 mg PO BID Qty: 14 0RF Eliquis 5 mg tablet 5 mg PO BID Qty: 74 0RF Rx Instructions: 10 mg twice a day for the first week. Then 5 mg twice a day. cephalexin 250 mg capsule 250 mg PO DAILY hydralazine 25 mg tablet 25 mg PO QHS ergocalciferol (vitamin D2) 1,250 mcg (50,000 unit) capsule 1,250 mcg PO QWEEK pregabalin 200 mg capsule 200 mg PO TID ondansetron 4 mg tablet,disintegrating 4 mg PO Q8H PRN PRN (Reason: Nausea) Qty: 10 0RF Primary Care Provider: Ronaldo Ruiz Referrals: Ronaldo Ruiz DO [Primary Care Provider] - Activity Restrictions/Additional Instructions: Please continue all of your home blood pressure medications as directed by your doctor. Use the Compazine that was prescribed to help with any bouts of nausea and vomiting which is related most likely to a viral illness and will last on average 3 days. Keep yourself well-hydrated and return to the ER should you have any further concerns Print Language: [place] Disposition Disposition: Home, Self Care Discharge Date/Time: 10/19/24 01:00
[2024-10-19 00:38] VITALS: BP 113/56; PULSE 67; RESP 12; TEMP 37.1; O2SAT 93
== END 2024-10-19 01:00 | disposition home or self-care (01) ==
PROVIDERS: Emergency Provider Emergency Medicine; PCP Family Medicine; Visit Provider Emergency Medicine
DX: I10 Essential (primary) hypertension (principal); J44.9 Chronic obstructive pulmonary disease, unspecified; R11.2 Nausea with vomiting, unspecified; Z87.891 Personal history of nicotine dependence; F41.9 Anxiety disorder, unspecified; Z79.01 Long term (current) use of anticoagulants; E78.00 Pure hypercholesterolemia, unspecified; M79.7 Fibromyalgia; E03.9 Hypothyroidism, unspecified; Z85.3 Personal history of malignant neoplasm of breast; Z79.890 Hormone replacement therapy; Z79.899 Other long term (current) drug therapy; Z79.51 Long term (current) use of inhaled steroids; K21.9 Gastro-esophageal reflux disease without esophagitis; Z90.49 Acquired absence of other specified parts of digestive tract; Z90.710 Acquired absence of both cervix and uterus; Z90.722 Acquired absence of ovaries, bilateral; Z90.11 Acquired absence of right breast and nipple
CPT/HCPCS: 70450; 80048; 80076; 83690; 85025; 85379; 87631; 93005; 96374; 96375; 99284; A4216; J2405

== ENCOUNTER → 2024-12-13 | Outpatient (CLI) | payer MEDICARE, OTHER, SELFPAY ==
[2024-12-13 18:17] LABS: Hematocrit 31.7 % (37-47); Hemoglobin 10.8 g/dL (12.0-15.0); Mean Corp Hgb Conc 34.1 g/dL (32-36); Mean Corpuscular Hgb 29.8 pg (27.0-32.0); Mean Corpuscular Volume 87.3 fL (81-99); Mean Platelet Vol. 10.1 fl (6.2-12.0); Platelet Count 200 K/mm3 (150-450); RBC Distribution Width CV 12.6 % (11.6-14.6); RBC Distribution Width SD 40.5 fl (35.1-43.9); Red Blood Count 3.63 M/mm3 (4.2-5.4); White Blood Count 4.6 K/mm3 (4.4-11.0)
[2024-12-13 18:38] LABS: Erythrocyte Sedimentation Rate 3 mm/hr (0-30)
[2024-12-13 22:06] LABS: CRP < 3.00 mg/L (0.0-3.0)
[2024-12-15 17:08] LABS: Endomysial Antibody IgA Negative (Negative); Immunoglobulin A 147 mg/dL (64-422); t-Transglutaminase IgA <2 U/mL (0-3)
== END | disposition home or self-care (01) ==
LOC: MTLAB 14:50
PROVIDERS: PCP Family Medicine; Referring Provider Internal Medicine Gastroenterology; Visit Provider Internal Medicine Gastroenterology
DX: R10.9 Unspecified abdominal pain (principal)
CPT/HCPCS: 36415; 82784; 83516; 85027; 85652; 86140; 86255

== ENCOUNTER → 2025-03-06 | Outpatient (CLI) | payer MEDICARE, OTHER, SELFPAY ==
--- NOTE | 2025-03-06 09:00 | RAD_ITS ---
PROCEDURE: ESOPHAGUS DUAL CONTRAST 03/06/2025 REASON FOR EXAM: DYSPHAGIA TECHNIQUE: Single and double contrast esophagram COMPARISON: None FINDINGS: Recurrent mid to distal esophageal spasm is seen. No area of persistent stenosis is seen, and no mass is identified a widely patent gastroesophageal junction is noted, with satisfactory passage of a 13 mm barium tablet also noted. A very small sliding-type hiatal hernia is noted. Limited imaging of the stomach and duodenum demonstrates no other abnormality. During the time of imaging, gastroesophageal reflux was not elicited. RAD/Esophagus Dual Contrast IMPRESSION: 1. Recurrent mid to distal esophageal spasm. 2. Very small sliding-type hiatal hernia Reading Location: [place] [id number]
== END | disposition home or self-care (01) ==
LOC: RAD 08:56
PROVIDERS: PCP Family Medicine; Referring Provider Internal Medicine Gastroenterology; Visit Provider Internal Medicine Gastroenterology
DX: R13.10 Dysphagia, unspecified (principal)
CPT/HCPCS: 74221

== ENCOUNTER 2025-07-28 23:57 | Emergency (ER) | payer MEDICARE, OTHER, SELFPAY ==
[2025-07-28 23:58] VITALS: BP 194/80; PULSE 74; RESP 14; TEMP 36.7; O2SAT 99; BMI 30.9
[2025-07-29] VITALS (8 sets, daily range): BP systolic 131–154; BP diastolic 64–90; PULSE 76–85; RESP 16–28; TEMP 36.7; O2SAT 91–98
--- NOTE | 2025-07-29 00:11 | EKG12_ITS ---
Test Reason : DYSRHYTHMIA Blood Pressure : */* mmHG Vent. Rate : 73 BPM Atrial Rate : 73 BPM P-R Int : 140 ms QRS Dur : 76 ms QT Int : 414 ms P-R-T Axes : 36 -3 12 degrees QTcB Int : 456 ms Normal sinus rhythm Nonspecific ST abnormality Abnormal ECG Confirmed by XAVIER FRIEDMAN, TANYA ([id number]), video editor MARYSOL RODRIGUEZ ([id number]) on 07/31/2025 8:22:00 AM Referred By: Confirmed By: TANYA PARK MD
--- OUTSIDE RECORDS SUMMARY | 2025-07-29 00:18 | XMS RPT_ITS | CCD ---
Author Organization [facility] Care Team Providers Care Research Specialist Name Role Phone REFERRING, LIGIA BOURGEOIS Unavailable Unavailable MOISES HORNE JR. Unavailable Unavailable MOISES HORNE JR. Unavailable Unavailable MOISES HORNE JR. Unavailable Unavailable MOISES HORNE JR. Unavailable Unavailable MOISES HORNE JR. Unavailable Unavailable Ricardo Ruiz A Primary Care Provider UnavailAMERICA Grullon Attending Unavailable RICARDO RUIZ A Primary Care Unavailable AMERICA PECK Admitting Unavailable AMERICA PECK Referring Unavailable RICARDO RUIZ A Primary Care Unavailable ANI NUNEZ Attending Unavailab le RICARDO RUIZ A Primary Care Unavailable ANI NUNEZ Admitting Unavailab ANI Buckley Referring Unavailab le SARARICARDO A Primary Care Unavailable ANI NUNEZ Admitting Unavailab ANI Buckley Referring Unavailab le SARARICARDO A Primary Care Unavailable REUBEN CABRERA Attending Unavailable RICARDO RUIZ Primary Care Unavailable Ricardo Ruiz Primary Care Provider SARA DR RICARDO PAULINO A Primary Care Physician Joanie Saleh Unavailable Unavailable Shu Buck Unavailable Unavailable Reji Barahona Unavailable Unavailable Sara Ricardo PAULINO Primary Care Provider [phone] Harshad Dawson Unavailable [phone] Joseph Retana MD Unavailable Sara, Dr. Higgins Primary Care Provider Dr. Ricardo Ruiz Referring Provider Dr. Deepak Canales Attending Provider Dr. Jono Nguyen Attending Provider Samir DO, Jamesetta H Unavailable Sara DO, Ricardo Rasmussen Primary Care Provider Samir DO, Jamesetta H Unavailable Joseph Retana MD Unavailable [phone] Dr. Yoni Oleary Emergency Provider Dr. Elie Jj Admit Provider Dr. Elie jJ Attending Provider Dr. Elie Jj Other Provider SARA PAULINO, DR RICARDO Holt Primary Care Physician Sara DO, Ricardo Rasmussen Primary Care Provider Samir DO, Jamesetta H Unavailable SARA PAULINO, DR RICARDO Holt Primary Care Physician Dr. Ricardo Ruiz Primary Care Provider Dr. Yoni Oleary Emergency Provider Dr. Elie Jj Admit Provider Dr. Elie Jj Attending Provider Dr. Elie Jj Other Provider Sara DO, Ricardo Rasmussen Primary Care Provider Samir DO, Jamesetta H Unavailable Joseph Retana MD Unavailable [phone] Dr. Ricardo Ruiz Primary Care Provider Dr. Ricardo Ruiz Referring Provider HECTOR Martinez Attending Provider Samir DO, Jamesetta H Unavailable Dr. Katheryn Walton Attending Provider Samir DO, Jamesetta H Unavailable [phone] WILLIAM REZA JR Attending Unavailable SARA, [facility] Unavailable ROCCO, ZOILA Referring Unavailable SARA, [facility] Unavailable O'GREG, LAURA Attending Unavailable ROCCO, ZOILA Referring Unavailable SARA, [facility] Unavailable O'GREG, LAURA Attending Unavailable ROCCO, ZOILA Referring Unavailable SARA, [facility] Care Unavailable O'GREG, LAURA Attending Unavailable ROCCO, ZOILA Referring Unavailable SARA, [facility] Unavailable ROCCO, ZOILA Attending Unavailable ROCCO, ZOILA Referring Unavailable SARA, [facility] Unavailable ROCCO, ZOILA Referring Unavailable SARA, [facility] Unavailable REJI RODRIGUEZ Attending Unavailable SARA, [facility] Unavailable JENA FELIX Attending Unavailable SARA, [facility] Unavailable WILLIAM REZA JR Referring Unavailable SARA, [facility] Unavailable PRIYANK YATES Attending Unavailable SARA, [facility] Unavailable ROCCO, ZOILA Referring Unavailable SARA, [facility] Unavailable ROCCO, ZOILA Referring Unavailable SARA, [facility] Unavailable Reji Barahona LPN Unavailable Unavailable Sara DO, [facility] Primary [facility] Provider LAURA CAGE MD Attending Unavailable SARA DO, DR RICARDO Holt Primary Care Unavailabl e HANANE RODRIGUEZ MD Attending Unavaila ble SARA DO, DR RICARDO Holt Primary Care Unavailabl e SARA DO, DR RICARDO Holt Primary Care Unavailabl e SARA DO, DR RICARDO Holt Attending Unavailabl HANANE Hendrickson MD Attending Unavaila ble SARA DO, DR RICARDO Holt Primary Care Unavailabl e SARA DO, DR RICARDO Holt Attending Unavailabl e SARA DO, DR RICARDO Holt Primary Care Unavailabl e KAILYN FRIEDMAN, ASPEN W Attending Unavailable SARA DO, DR RICARDO Holt Primary Care Unavailabl e SARA DO, DR RICARDO Holt Primary Care Unavailabl e HANANE RODRIGUEZ MD Attending Unavaila ble SARA DO, DR RICARDO Holt Primary Care Unavailabl e JENNIFER FRIEDMAN, HANANE Attending Unavaila ble SARA DO, DR RICARDO Holt Primary Care Unavailabl e SARA DO, DR RICARDO Holt Attending Unavailabl e SARA DO, DR RICARDO Holt Primary Care Unavailabl e ROMAR DO, DR HURTADO Attending Unavailable SARA DO, DR RICARDO Holt Primary Care Unavailabl e CHRISTIANO GODINEZ Attending Unavailable SARA DO, DR RICARDO Holt Primary Care Unavailabl e NILES FRIEDMAN, LAURA Attending Unavailable JENNIFER FRIEDMAN, HANANE Attending Unavaila ble SARA DO, DR RICARDO Holt Primary Care Unavailabl e KAILYN FRIEDMAN, ASPEN W Attending Unavailable SARA DO, DR RICARDO Holt Primary Care Unavailabl e JENNIFER FRIEDMAN, HANANE Attending Unavaila ble SARA DO, DR RICARDO Holt Primary Care Unavailabl e SARA DO, DR RICARDO Holt Primary Care Unavailabl e JENNIFER FRIEDMAN, HANANE Attending Unavaila ble [place] [employer], Reji Unavailable Unavailable Sara DO, Dr. Higgins Primary Care Provider Andes DO, Dr. Daniels Attending Provider [phone] Andes DO, Dr. Daniels Emergency Provider [phone] Yahir FRIEDMAN, Dr. Mendes Attending Provider Yahir FRIEDMAN, Dr. Mendes Referring Provider Sara DO, Dr. Higgins Primary Care Provider [phone] Vaughn Steele Referring Unavailable Sara, Ricardo Primary Care Unavailable Vaughn Steele Attending Unavailable Sara, Ricardo Primary Care Unavailable Vaughn Steele Attending Unavailable JabourVaughn Referring Unavailable Sara, Ricardo Primary Care Unavailable Jeremiah Mccormack Attending Unavailable ROCCO, ZOILA Attending Unavailable SARA, RICARDO JOSE CARLOS Primary Care Unavailable ROCCO, ZOILA Attending Unavailable SARA, [facility] Primary Care Unavailable ROCCO, ZOILA Attending Unavailable SELF Referring Unavailable [facility] ROCCO, ZOILA Attending Unavailable SARA, RICARDO JOSE CARLOS Primary Care Unavailable ROCCO, ZOILA Attending Unavailable SARA, [facility] Primary Care Unavailable ROCCO, ZOILA Attending Unavailable SARA, [facility] Primary Care Unavailable BUCHINO MD, CHRISTIANO Consulting Unavailable SARA DO, DR RICARDO Holt Attending Unavailabl e SARA DO, DR RICARDO Holt Primary Care Unavailabl e SARA DO, DR RICARDO Holt Primary Care Unavailabl e JENNIFER FRIEDMAN, HANANE Attending Unavaila ble SARA DO, DR RICARDO Holt Primary Care Unavailabl e JENNIFER FRIEDMAN, HANANE Attending Unavaila ble JENNIFER FRIEDMAN, HANANE Attending Unavaila ble SARA DO, DR RICARDO Holt Primary Care Unavailabl e SARA DO, DR RICARDO Holt Primary Care Unavailabl e NILES FRIEDMAN, LAURA Attending Unavailable SARA DO, DR RICARDO Holt Primary Care Unavailabl e JENNIFER FRIEDMAN, HANANE Attending Unavaila ble WIETECHA DO, CAIN Amaral Attending Unavailable SARA DO, DR RICARDO Holt Primary Care Unavailabl e SARA DO, DR RICARDO Holt Primary Care Unavailabl candace CAGE MD, LAURA Attending Unavailable JENNIFER FRIEDMAN, HANANE Attending Unavaila ble SARA DO, DR RICARDO Holt Primary Care Unavailabl e JOSE CARLOS BARRIOS MD, I Attending Unavailable SARA DO, DR RICARDO Holt Primary Care Unavailabl JOSE CARLOS Millan MD, I Attending Unavailable PALUTSIS DO, JONG Garcia Consulting Unavail able SARA DO, DR RICARDO Holt Primary Care Unavailabl e [facility] 10-25-2021 19:38-0500 Heart rate 71 /min DR CEDRIC LIAO MD [facility] 10-25-2021 15:05-0500 Heart rate 67 /min DR CEDRIC LIAO MD [facility] 10-25-2021 12:05-0500 Heart rate 71 /min DR CEDRIC LIAO MD [facility] 10-25-2021 06:59-0500 Heart rate 64 /min DR CEDRIC LIAO MD [facility] 10-24-2021 22:43-0500 Body height [address] CEDRIC LIAO MD [facility] 10-24-2021 22:43-0500 Body weight [address] CEDRIC LIAO MD [facility] 10-24-2021 22:43-0500 Body weight 29.14 kg/m2 DR CEDRIC LIAO MD [facility] 10-24-2021 11:57-0500 Body weight [address] CEDRIC LIAO MD [facility] 10-08-2021 17:22-0500 Diastolic blood pressure 76 mm[Hg] [facility] Work Phone: 10-08-2021 17:22-0500 Heart rate 67 /min [facility] Work Phone: 10-08-2021 17:22-0500 Respiratory rate 18 /min [facility] Work Phone: 10-08-2021 17:22-0500 SaO2% (BldA) [Mass fraction] 100 % [facility] Work Phone: 10-08-2021 17:22-0500 Systolic blood pressure 125 mm[Hg] [facility] Work Phone: 10-08-2021 12:48-0500 Body height 154.94 cm [facility] Work Phone: 10-08-2021 12:48-0500 Body mass index (BMI) [Ratio] 29.2 kg/m2 [facility] Work Phone: 10-08-2021 12:48-0500 Body temperature 96.9 [degF] [facility] Work Phone: 10-08-2021 12:48-0500 Body weight 70.3 kg [facility] Work Phone: 09-10-2021 15:00-0500 Heart rate 65 /min [facility] Work Phone: 09-10-2021 15:00-0500 Respiratory rate 15 /min [facility] Work Phone: 09-10-2021 15:00-0500 SaO2% (BldA) [Mass fraction] 99 % [facility] Work Phone: 09-10-2021 13:18-0500 Body temperature 98 [degF] [facility] Work Phone: 09-10-2021 13:18-0500 Diastolic blood pressure 68 mm[Hg] [facility] Work Phone: 09-10-2021 13:18-0500 Systolic blood pressure 133 mm[Hg] [facility] Work Phone: 09-10-2021 11:16-0500 Body mass index (BMI) [Ratio] 29.2 kg/m2 [facility] Work Phone: 09-10-2021 11:16-0500 Body weight 70.3 kg [facility] Work Phone: 09-03-2021 12:11-0500 Body weight 69.85 kg Zoila Rocco T[employer]AYOUT.NUCLEAR FUEL PROCESSING TECHNICIAN Work Phone: [facility] 09-03-2021 12:11-0500 Diastolic blood pressure 53 mm[Hg] Zoila Rocco [employer].NUCLEAR FUEL PROCESSING TECHNICIAN Work Phone: [facility] 09-03-2021 12:11-0500 Heart rate 63 /min Zoila Rocco [employer] LAYOUT.NUCLEAR FUEL PROCESSING TECHNICIAN Work Phone: [facility] 09-03-2021 12:11-0500 Respiratory rate 19 /min Zoila Rocco [employer]OUT.NUCLEAR FUEL PROCESSING TECHNICIAN Work Phone: [facility] 09-03-2021 12:11-0500 SaO2% (BldA) [Mass fraction] 97 % Zoila Rocco [employer] LAYOUT.NUCLEAR FUEL PROCESSING TECHNICIAN Work Phone: [facility] 09-03-2021 12:110500 Systolic blood pressure 129 mm[Hg] Zoila Valiente T[employer]AYOUT.NUCLEAR FUEL PROCESSING TECHNICIAN Work Phone: [facility] 10-17-2019 14:45-0500 BMI (Body Mass Index) 27.4 kg/m2 [facility] 10-17-2019 14:45-0500 Body weight 65.77 kg [facility] 10-17-2019 14:45-0500 Height 154.9 cm [facility] 10-06-2019 14:31-0500 BMI (Body Mass Index) 27.4 kg/m2 [facility] 10-06-2019 14:31-0500 Body weight 65.[address] [facility] 10-06-2019 14:31-[address] [facility] Encounters Encounter Date Encounter Type Care Provider Facility Start: 07-24-[address] RICARDO RUIZ DO Fa cility:[facility] Start: 07-14-2025 End: 07-14-[address] RICARDO RUIZ DO Facility:[facility] Start: 07-14-2025 End: 07-14-2025 Patient encounter procedure AARON PROCTOR MD [facility] Start: 06-15-2025 End: 06-15-[address] RICARDO RUIZ DO Facility:[facility] Start: 06-15-2025 End: 06-15-2025 Patient encounter procedure AARON PROCTOR MD [facility] Start: 06-08-2025 End: 06-08-[address] RICARDO RUIZ DO Facility:[facility] Start: 06-08-2025 End: 06-08-2025 Patient encounter procedure AARON PROCTOR MD [facility] Start: 06-08-[address] RICARDO RUIZ DO Fa cility:A Start: 06-01-2025 End: 06-01-2025 ambulatory CAIN Cristin KIMWILLIAM Facility:A Start: 05-22-2025 End: 05-26-[address] RICARDO RUIZ DO Facility:[facility] Start: 05-22-2025 End: 05-26-[address] RICARDO RUIZ DO [facility] Start: 05-13-2025 End: 05-16-2025 ambulatory Zoila Rocco [employer].NUCLEAR FUEL PROCESSING TECHNICIAN Work Phone: Pain Management Comment on above: [place] medication Start: 05-12-2025 End: 05-13-2025 ambulatory JOSE CARLOS BARRIOS MD Facility:A Start: 05-12-2025 End: 05-13-2025 Observation JOSE CARLOS BARRIOS MD [facility] Start: 05-05-2025 End: 05-05-2025 Telemedicine consultation with patient Zoila Valiente APRN.NUCLEAR FUEL PROCESSING TECHNICIAN Work Phone: Pain Management Start: 05-05-2025 End: 05-05-2025 ambulatory Zoila Rocco [employer].NUCLEAR FUEL PROCESSING TECHNICIAN Work Phone: Pain Management Comment on above: Other chronic pain ( Primary Dx); Postherpetic neuralgia; 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; Neck pain; Lumbar radiculopathy; Chronic left shoulder pain; Chronic pain syndrome Start: 05-05-2025 End: 05-05-[address] RICARDO RUIZ DO Facility:[facility] Start: 05-05-2025 End: 05-05-[address] RICARDO RUIZ DO [facility] Start: 04-28-2025 End: 04-28-2025 Admission to establishment JOSE CARLOS BARRIOS MD [facility] Start: 04-28-2025 End: 04-28-2025 ambulatory JOSE CARLOS BARRIOS MD Facility:A Start: 04-24-2025 End: 04-25-[address] RICARDO RUIZ DO Facility:A Start: 04-24-2025 End: 04-25-2025 Patient encounter procedure HANANE RODRIGUEZ MD [facility] Start: 03-13-2025 End: 03-13-[address] RICARDO RUIZ DO Facility:[facility] Start: 03-13-2025 End: 03-13-[address] VAUGHN STEELE MD [facility] Start: 03-07-2025 End: 05-07-2025 Follow-up encounter Zoila Valiente APRN.NUCLEAR FUEL PROCESSING TECHNICIAN Work Phone: PAIN [facility] Start: 03-06-2025 End: 03-06-[address] Ricardo Ruiz DO Work Phone: -Radiology [facility] Start: 03-06-2025 End: 03-06-[address] Vaughn Steele MD -Radiology [facility] Work Phone: Start: 03-06-2025 End: 03-06-2025 ambulatory Ricardo Ruiz Facility:[facility] Start: 03-03-2025 End: 03-07-2025 ambulatory BRAN OLIVARES MD Facility:[facility] Start: 03-03-2025 End: 03-07-2025 Outreach Lab BRAN OLIVARES MD [facility] Start: 03-02-2025 End: 03-02-2025 Patient encounter procedure Zoila Valiente APRN.NUCLEAR FUEL PROCESSING TECHNICIAN Work Phone: PAIN [facility] Comment on above: Other chronic pain ( Primary Dx); Postherpetic neuralgia; care home (current) use of opiate analgesic; Neck pain; Lumbar radiculopathy; Chronic left shoulder pain; Chronic pain syndrome Start: 03-02-2025 End: 03-02-2025 ambulatory ZOILA VALIENTE Facility:[id number] Start: 02-24-2025 End: 02-24-2025 ambulatory CHRISTIANO MILES MD Facility:A Start: 02-24-2025 End: 02-24-[address] RICARDO RUIZ DO [facility] Start: 02-08-2025 End: 02-08-[address] RICARDO RUIZ DO Facility:[facility] Start: 02-08-2025 End: 02-08-[address] RICARDO RUIZ DO [facility] Start: 01-23-2025 End: 01-23-[address] RICARDO RUIZ DO Facility:[facility] Start: 01-23-2025 End: 01-23-2025 Patient encounter procedure LAST ORELLANA TAPER PRINTED CIRCUIT LAYOUT-INSULATION BOARD CALENDER OPERATOR [facility] Start: 01-05-2025 End: 01-05-2025 ambulatory HANANE RODRIGUEZ MD Facility:[facility] Start: 01-05-2025 End: 01-05-2025 Patient encounter procedure HANANE RODRIGUEZ MD [facility] Start: 01-02-2025 End: 01-02-[address] RICARDO RUIZ DO Facility:[facility] Start: 12-29-2024 End: 12-29-2024 Telemedicine consultation with patient Zoila Valiente T[employer]ER [employer] LAYOUT.NUCLEAR FUEL PROCESSING TECHNICIAN Work Phone: [facility]IN [facility] Start: 12-29-2024 End: 12-29-2024 ambulatory Zoila Valiente TAPER PR[employer] LAYOUT.NUCLEAR FUEL PROCESSING TECHNICIAN Work Phone: [facility] Comment on above: Other chronic pain ( Primary Dx); Postherpetic neuralgia; 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 Ricardo Ruiz DO Work Phone: [facility] Work Phone: Start: 12-13-2024 End: 12-13-[address] [facility] Start: 12-13-2024 End: 12-13-2024 ambulatory Vaughn Steele Facility:[facility] Start: 12-07-2024 End: 12-21-[address] RICARDO RUIZ DO Facility:A Start: 12-07-2024 End: 12-21-2024 Radiation Therapy LAURA CAGE MD [facility] Start: 12-05-2024 End: 12-05-[address] RICARDO RUIZ DO Facility:[facility] Start: 11-23-2024 End: 11-23-[address] RICARDO RUIZ DO Facility:A Start: 11-10-2024 End: 11-10-2024 Refill Zoila Valiente APRN.CNP Work Phone: [facility] Comment on above: Refill Request Start: 10-31-2024 End: 10-31-[address] RICARDO RUIZ DO Facility:A Start: 10-18-2024 End: 10-19-2024 Emergency department patient visit Jeremiah Mccormack DO -Emergency Department Work Phone: Start: 10-13-2024 End: 10-13-[address] RICARDO RUIZ DO Facility:[facility] Start: 10-13-2024 End: 10-13-[address] RICADRO RUIZ DO [facility] Start: 10-12-2024 End: 10-12-2024 Patient encounter procedure Zoila Rocco TAPER PR[employer] LAYOUT.NUCLEAR FUEL PROCESSING TECHNICIAN Work Phone: [facility] Comment on above: Other chronic pain ( Primary Dx); Postherpetic neuralgia; 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; Neck pain; Lumbar radiculopathy; Chronic left shoulder pain; Fibromyositis; Chronic pain syndrome Start: 10-12-2024 End: 10-12-2024 ambulatory ZOILA ROCCO Facility:[id number] Start: 10-09-2024 End: 10-11-2024 Refill Zoila Rocco T[employer]AYOUT.NUCLEAR FUEL PROCESSING TECHNICIAN Work Phone: [facility] Comment on above: Refill Request Start: 10-03-2024 End: 10-03-[address] RICARDO RUIZ DO Facility:[facility] Start: 10-03-2024 End: 10-03-[address] RICARDO RUIZ DO [facility] Start: 09-27-2024 End: 09-27-[address] RICARDO RUIZ DO Facility:[facility] Start: 09-27-2024 End: 09-27-2024 Patient encounter procedure BALTAZAR BANERJEE APRN-NUCLEAR FUEL PROCESSING TECHNICIAN [facility] Start: 09-20-2024 End: 09-20-[address] RICARDO RUIZ DO Facility:[facility] Start: 09-20-2024 End: 09-20-2024 Patient encounter procedure BALTAZAR BANERJEE TAPER PR[employer] LAYOUT-NUCLEAR FUEL PROCESSING TECHNICIAN [facility] Start: 09-03-2024 End: 09-05-2024 Refill Zoila Rocco TAPER [employer] LAYOUT.NUCLEAR FUEL PROCESSING TECHNICIAN Work Phone: Pain Management Comment on above: Refill Request Start: 09-01-2024 End: 09-01-[address] RICARDO RUIZ DO Facility:[facility] Start: 09-01-2024 End: 09-01-[address] RICARDO RUIZ DO [facility] Start: 08-05-2024 End: 08-05-2024 ambulatory Zoila Rocco TAPER PR[employer] LAYOUT.NUCLEAR FUEL PROCESSING TECHNICIAN Work Phone: PAIN [facility] Comment on above: Back specialist Start: 08-04-2024 End: 08-04-2024 Telemedicine consultation with patient Zoila Rocco TAPER [employer]AYOUT.NUCLEAR FUEL PROCESSING TECHNICIAN Work Phone: [facility]IN [facility] Start: 08-04-2024 End: 08-04-2024 ambulatory Zoila Rocco TAPER PR[employer] CIRCUIT LAYOUT.NUCLEAR FUEL PROCESSING TECHNICIAN Work Phone: [facility]IN [facility] Comment on above: Other chronic pain ( Primary Dx); 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; Neck pain; Lumbar radiculopathy; Fibromyositis; Postherpetic neuralgia; Chronic pain syndrome Start: 06-27-2024 End: 06-27-[address] RICARDO RUIZ DO [facility] Start: 06-26-2024 End: 06-27-2024 Refill Zoila Rocco TAPER PR[employer] LAYOUT.NUCLEAR FUEL PROCESSING TECHNICIAN Work Phone: Pain Management Comment on above: Refill Request Start: 06-03-2024 End: 06-03-2024 ambulatory ZOILA ROCCO Facility:[id number] Start: 06-03-2024 End: 06-03-2024 Patient encounter procedure Zoila Rocco TAPER PRINT[employer] CIRCUIT LAYOUT.NUCLEAR FUEL PROCESSING TECHNICIAN Work Phone: Pain Management Comment on above: Other chronic pain ( Primary Dx); 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; Lumbar radiculopathy; Neck pain; Fibromyositis; Postherpetic neuralgia; Chronic pain syndrome Start: 04-06-2024 End: 04-06-2024 ambulatory Zoila Rocco TAPER PR[employer] LAYOUT.NUCLEAR FUEL PROCESSING TECHNICIAN Work Phone: Pain Management Comment on above: Other chronic pain ( Primary Dx); care home (current) use of opiate analgesic; Lumbar radiculopathy; Neck pain; Fibromyositis; Postherpetic neuralgia; Chronic pain syndrome Start: 04-06-2024 End: 04-06-2024 Telemedicine consultation with patient Zoila Hillo TAPER PR[employer] CIRCUIT LAYOUT.NUCLEAR FUEL PROCESSING TECHNICIAN Work Phone: Pain Management Start: 04-05-2024 Refill Zoila Rococ TAPER PR[employer] CIRCUIT LAYOUT.NUCLEAR FUEL PROCESSING TECHNICIAN Work Phone: Pain Management Comment on above: Refill Request Start: 03-28-2024 Refill Zoila Rocco TAPER PR[employer] LAYOUT.NUCLEAR FUEL PROCESSING TECHNICIAN Work Phone: Pain Management Comment on above: Refill Request Start: 03-04-2024 End: 03-04-[address] RICARDO RUIZ DO Facility:[facility] Start: 03-04-2024 End: 03-04-[address] RICARDO RUIZ DO [facility] Start: 02-29-2024 End: 02-29-[address] RICARDO RUIZ DO Facility:[facility] Start: 02-29-2024 End: 02-29-[address] RICARDO RUIZ DO [facility] Start: 02-02-2024 End: 02-02-2024 ambulatory Zoila Valiente APRN.NUCLEAR FUEL PROCESSING TECHNICIAN Work Phone: Pain Management Comment on above: Other chronic pain ( Primary Dx); 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; Lumbar radiculopathy; Neck pain; Fibromyositis; Chronic pain syndrome Start: 02-02-2024 End: 02-02-2024 Telemedicine consultation with patient Zoila Rocco APRN.NUCLEAR FUEL PROCESSING TECHNICIAN Work Phone: Pain Management Start: 02-02-2024 Telephone encounter Zoila Jing rco TAPER PRINTED CIRCUIT LAYOUT.NUCLEAR FUEL PROCESSING TECHNICIAN Work Phone: Pain Management Comment on above: Other (Patient q uestions) Other (Virtual V isit Pre Check In) Other (Metaxalon e approved thru 02/01/2025) Start: 01-23-2024 End: 01-27-[address] RICARDO RUIZ DO Facility:[facility] Start: 01-23-2024 End: 01-27-[address] BRYANT KEMP DO [facility] Start: 01-21-2024 End: 01-21-2024 ambulatory [facility] Provider Pain Management Comment on above: SOAPP Start: 01-21-2024 E-mail encounter jerson garcia caregiver [facility] Provider Pain Management Start: 01-21-2024 End: 01-21-2024 Patient encounter procedure HANANE RODRIGUEZ MD [facility] Start: 12-30-2023 Telephone encounter Zoila Jing nikos SEGURA.NUCLEAR FUEL PROCESSING TECHNICIAN Work Phone: Pain Management Comment on above: Other (Patient q uestions) Other (Virtual V isit Pre Check In) Start: 12-30-2023 End: 12-30-2023 ambulatory Zoila Hillcyndy SEGURA.NUCLEAR FUEL PROCESSING TECHNICIAN Work Phone: Pain Management Comment on above: Other chronic pain ( Primary Dx); 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; Lumbar radiculopathy; Neck pain; Fibromyositis; Chronic left shoulder pain; Chronic pain syndrome Start: 12-30-2023 End: 12-30-2023 Telemedicine consultation with patient Zoila Valiente COLTON.NUCLEAR FUEL PROCESSING TECHNICIAN Work Phone: [facility] Start: 12-16-2023 End: 12-16-[address] RICARDO RUIZ DO Facility:B Start: 12-04-2023 ambulatory LAURA CAGE MD Facilit y:A Start: 12-04-2023 End: 06-14-2024 Radiation Therapy LAURA CAGE MD [facility] Start: 11-06-2023 Telephone encounter Zoila knott APRN.CNP Work Phone: Pain Management Comment on above: Other (Patient q uanila) Other (Virtual V isit Pre Check In) Other (Follow up ) Start: 11-06-2023 End: 11-06-2023 ambulatory Zoila Valiente APRN.CNP Work Phone: Pain Management Comment on above: Other chronic pain ( Primary Dx); care home (current) use of opiate analgesic; Lumbar radiculopathy; Neck pain; Fibromyositis; Chronic left shoulder pain; Chronic pain syndrome Start: 11-06-2023 End: 11-06-2023 Telemedicine consultation with patient Zoila Valiente HAILEY Work Phone: [facility] Start: 11-05-2023 Telephone encounter Zoila knott APRN.NUCLEAR FUEL PROCESSING TECHNICIAN Work Phone: Pain Management Comment on above: Other (Health ma intenance) Start: 11-04-2023 End: 11-04-[address] RICARDO RUIZ Facility:B Start: 11-04-2023 End: 11-04-2023 Patient encounter procedure HANANE RODRIGUEZ MD [facility] Start: 10-28-2023 End: 10-28-2023 ambulatory [facility] Provider Pain Management Comment on above: SOAPP Start: 10-28-2023 E-mail encounter fro m caregiver [facility] Provider [facility] Start: 10-23-2023 Telephone encounter Zoila knott APRN.CNP Work Phone: Pain Management Comment on above: Other (Health ma intenance) Start: 10-21-2023 Telephone encounter Zoila knott APRN.SOPHIA Work Phone: Pain Management Comment on above: Other (Chart upd ate) Start: 10-20-2023 End: 10-20-2023 ambulatory HANANE RODRIGUEZ MD Facility:B Start: 10-15-2023 End: 10-16-2023 ambulatory ZOILA VALIENTE Facility:[facility] Start: 09-03-2023 Telephone encounter Zoila knott [employer] LAYOUT.NUCLEAR FUEL PROCESSING TECHNICIAN Work Phone: Pain Management Start: 09-02-2023 Telephone encounter Zoila Ch nikos T[employer] LAYOUT.NUCLEAR FUEL PROCESSING TECHNICIAN Work Phone: Pain Management Comment on above: Other [facility] Start: 08-27-2023 End: 08-27-2023 ambulatory ZOILA VALIENTE Facility:[facility] Start: 2023 End: 2023 ambulatory Zoila Valiente T[employer] LAYOUT.NUCLEAR FUEL PROCESSING TECHNICIAN Work Phone: Pain Management Comment on above: Other chronic pain ( Primary Dx); Lumbar radiculopathy; care home (current) use of opiate analgesic; Neck pain; Fibromyositis; Chronic pain syndrome Start: 2023 End: 2023 Telemedicine consultation with patient Zoila Valiente APRN.NUCLEAR FUEL PROCESSING TECHNICIAN Work Phone: [facility] Start: 2023 Telephone encounter Zoila Ch nikos SEGURA.NUCLEAR FUEL PROCESSING TECHNICIAN Work Phone: Pain Management Comment on above: Other (Virtual V isit Pre Check In) Start: 07-27-2023 End: 07-27-2023 ambulatory HANANE RODRIGUEZ MD Facility:A Start: 07-27-2023 End: 07-27-2023 Patient encounter procedure HANANE RODRIGUEZ MD [facility] Start: 07-22-2023 ambulatory [facility] Provider Pain Manag ement Comment on above: SOAPP Start: 07-22-2023 E-mail encounter fro m caregiver [facility] Provider [facility] Start: 07-20-2023 End: 07-20-2023 ambulatory ASPEN AVINA MD Facility:B Start: 07-20-2023 End: 07-20-2023 Patient encounter procedure ASPEN AVINA MD [facility] Start: 07-06-2023 End: 07-06-2023 ambulatory HANANE RODRIGUEZ MD Facility:A Start: 07-06-2023 End: 07-06-2023 Patient encounter procedure HANANE RODRIGUEZ MD [facility] Start: 06-26-2023 End: 06-26-2023 ambulatory Zoila Valiente APRN.NUCLEAR FUEL PROCESSING TECHNICIAN Work Phone: Pain Management Comment on above: Other chronic pain ( Primary Dx); Lumbar radiculopathy; 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; Neck pain; Fibromyositis; Chronic left shoulder pain; Chronic pain syndrome Start: 06-26-2023 End: 06-26-2023 Telemedicine consultation with patient Zoilasara Valiente APRN.NUCLEAR FUEL PROCESSING TECHNICIAN Work Phone: [facility] Start: 06-26-2023 Telephone encounter Zoila knott [employer].NUCLEAR FUEL PROCESSING TECHNICIAN Work Phone: Pain Management Comment on above: Other (Virtual V isit Pre Check In) F/U 1 month (Follow up appt); Other Start: 06-23-2023 Telephone encounter Zoila knott APRN.NUCLEAR FUEL PROCESSING TECHNICIAN Work Phone: Pain Management Comment on above: Other (Health Ma intenance Review) Start: 06-18-2023 End: 06-18-2023 ambulatory HANANE RODRIUGEZ MD Facility:A Start: 06-16-2023 End: 06-16-2023 ambulatory ASPEN AVINA MD Facility:B Start: 06-16-2023 End: 06-16-2023 Patient encounter procedure ASPEN AVINA MD [facility] Start: 06-09-2023 Telephone encounter Zoila knott APRN.NUCLEAR FUEL PROCESSING TECHNICIAN Work Phone: Pain Management Start: 05-21-2023 End: 05-21-[address] RICARDO RUIZ DO Facility:B Start: 05-08-2023 End: 05-09-2023 ambulatory [facility] Facility:[facility] Start: 05-01-2023 Follow-up encounter [place] [facility] [place] above: Need for follow-up b y rn social services (Primary Dx) Start: 04-28-2023 End: 04-28-2023 ambulatory [facility] Facility:[facility] Start: 04-21-2023 End: 04-21-2023 ambulatory [facility] Facility:[facility] Start: 04-21-2023 End: 04-21-2023 ambulatory Laura Bravo PT [facility] Comment on above: Neck pain (Primary D x) Start: 04-14-2023 End: 04-14-2023 ambulatory [facility] Facility:[facility] Start: 04-14-2023 End: 04-14-2023 ambulatory Laura Bravo PT [facility] Comment on above: Lumbar radiculopathy (Primary Dx); Fibromyositis; Neck pain Start: 03-30-2023 End: 03-31-2023 Emergency department patient visit Dr. 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; Neck pain; Fibromyositis; Chronic pain syndrome Start: 03-25-2023 End: 03-25-2023 Telemedicine consultation with patient Zoila Hillcyndy HART Work Phone: [facility] Start: 03-03-2023 Telephone encounter Zoila knott APRN.CNP Work Phone: Pain Management Comment on above: LVM to cancel other injection appt Start: 02-27-2023 End: 02-27-2023 ambulatory Zoila Valiente COLTON.NUCLEAR FUEL PROCESSING TECHNICIAN Work Phone: Pain Management Comment on above: Other chronic pain ( Primary Dx); Lumbar radiculopathy; care home (current) use of opiate analgesic; Fibromyositis; Neck pain; Chronic pain syndrome Start: 02-27-2023 End: 02-27-2023 Telemedicine consultation with patient Zoila Valiente COLTON.NUCLEAR FUEL PROCESSING TECHNICIAN Work Phone: [facility] Start: 02-25-2023 End: 02-25-[address] Ricardo Ruiz Work Phone: [facility] Work Phone: Start: 02-10-2023 End: 02-11-2023 Emergency department patient visit Dr. Ricardo Ruiz Work Phone: [facility] Start: 02-06-2023 End: 02-06-2023 [facility] Reji Rodriguez TAPER [employer] LAYOUT.NUCLEAR FUEL PROCESSING TECHNICIAN Work Phone: [facility] [place] Comment on above: Cervical disc disord er with radiculopathy (Primary Dx); Tension headache Start: 01-28-2023 Non-patient / Non-visit Dr. Flakito Ruiz Work Phone: [facility] Start: 01-28-2023 End: 01-28-[address] Ricardo Ruiz [facility] Start: 01-21-2023 End: 01-21-2023 Patient encounter procedure QUAN CARLOS T[employer] LAYOUT-NUCLEAR FUEL PROCESSING TECHNICIAN [facility] Start: 01-21-2023 Non-patient / Non-visit Dr. Flakito Ruiz Work Phone: [facility] Start: 01-14-2023 Non-patient / Non-visit Dr. Flakito Ruiz Work Phone: [facility] Start: 01-06-2023 End: 01-06-[address] 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; Fibromyositis; Neck pain; Chronic pain syndrome Start: 12-26-2022 End: 12-26-2022 Telemedicine consultation with patient Zoila Valiente APRN.NUCLEAR FUEL PROCESSING TECHNICIAN Work Phone: [facility] Start: 12-18-2022 Chart abstracting Unk (Historical) N eurology Start: 12-16-2022 End: 12-16-2022 ambulatory JENA FELIX Facility:[facility] Start: 12-16-2022 End: 12-16-2022 Patient encounter procedure Jena Felix PA-C Work Phone: Neurology Comment on above: Intractable acute po st-traumatic headache (Primary Dx); Foraminal stenosis of cervical region; Lacunar infarction (HCC); Neck pain; New daily persistent headache; Cerebrovascular accident (CVA), unspecified mechanism (HCC); Prediabetes ; Cervicalgia; Medication overuse headache Start: 12-10-2022 End: 12-14-2022 Outreach Lab QUAN TERRANCE SEGURA-NUCLEAR FUEL PROCESSING TECHNICIAN [facility] Start: 12-10-2022 End: 06-12-2023 Radiation Therapy LAURA CAGE MD [facility] Start: 12-03-2022 Telephone encounter Erna Núñez PA-C Work Phone: Neurology Comment on above: Orders Start: 12-02-2022 End: 12-02-2022 Patient encounter procedure LAURA CAGE MD [address] [place] [address] Start: 12-02-2022 End: 12-02-2022 ambulatory WILLIAM REZA JR Facility:[facility] Start: 11-27-2022 End: 11-27-2022 ambulatory Zoila Valiente APRN.NUCLEAR FUEL PROCESSING TECHNICIAN Work Phone: Pain Management Comment on above: Other chronic pain ( Primary Dx); Lumbar radiculopathy; 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; Fibromyositis; Neck pain; Chronic pain syndrome Start: 11-27-2022 End: 11-27-2022 Telemedicine consultation with patient Zoila Valiente APRN.NUCLEAR FUEL PROCESSING TECHNICIAN Work Phone: [facility] Start: 11-20-2022 End: 11-20-2022 ambulatory PRIYANK KELLY Facility:[facility] Start: 11-17-2022 End: 11-18-2022 Emergency department patient visit [facility] Start: 11-14-2022 Refill Zoila Valiente APRN.NUCLEAR FUEL PROCESSING TECHNICIAN Work Phone: Pain Management Comment on above: Refill Request Start: 11-12-2022 End: 11-12-[address] RICARDO RIUZ DO [facility] Start: 11-12-2022 End: 11-16-[address] RICARDO URIZ DO [facility] Start: 11-07-2022 End: 11-08-2022 ambulatory ZOILA VALIENTE Facility:[facility] Start: 11-03-2022 End: 11-03-2022 ambulatory WILLIAM REZA JR Facility:[facility] Start: 11-03-2022 End: 11-03-2022 Patient encounter procedure William Reza MD Work Phone: Neurology Comment on above: Intractable acute po st-traumatic headache (Primary Dx); Cervicalgia; Medication overuse headache; Hypertension, unspecified type Start: 10-23-2022 End: 10-23-2022 ambulatory [facility] Work Phone: Start: 10-23-2022 End: 10-23-2022 Patient encounter procedure [facility] Specimen Start: 10-20-2022 End: 10-20-[address] RICARDO RUIZ DO [facility] Start: 10-15-2022 End: 10-15-[address] RICARDO RUIZ DO [facility] Start: 10-03-2022 End: 10-03-2022 ambulatory Zoila Rocco APRN.NUCLEAR FUEL PROCESSING TECHNICIAN Work Phone: Pain Management Comment on above: Other chronic pain ( Primary Dx); Lumbar radiculopathy; 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 Ricardo Ruiz Work Phone: [facility] Start: 08-28-2022 End: 08-28-2022 Emergency department patient visit Dr. Ricardo Ruiz Work Phone: [facility] Start: 08-27-2022 End: 08-28-2022 Emergency department patient visit Dr. Ricardo Ruiz Work Phone: [facility] Start: 08-01-2022 End: 08-01-[address] RICARDO RUIZ DO [facility] Start: 2022 End: 2022 ambulatory Zoilasara Valiente APRN.NUCLEAR FUEL PROCESSING TECHNICIAN Work Phone: Pain Management Comment on above: Chronic pain syndrom e (Primary Dx); Lumbar radiculopathy; Low back pain with sciatica, sciatica laterality unspecified, unspecified back pain laterality, unspecified chronicity; Lumbar post-laminectomy syndrome Start: 2022 End: 2022 Telemedicine consultation with patient Zoila Valiente APRNLuis FernandoNUCLEAR FUEL PROCESSING TECHNICIAN Work Phone: [facility] Start: 07-18-2022 End: 07-18-2022 Patient encounter procedure NATASHA FREEDMAN TAPER [employer] LAYOUT-NUCLEAR FUEL PROCESSING TECHNICIAN [facility] Start: 06-26-2022 End: 06-26-2022 ambulatory Zoila Valiente COLTON.NUCLEAR FUEL PROCESSING TECHNICIAN Work Phone: Pain Management Comment on above: Chronic pain syndrom e (Primary Dx); 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; Lumbar radiculopathy; Low back pain with sciatica, sciatica laterality unspecified, unspecified back pain laterality, unspecified chronicity Start: 06-26-2022 End: 06-26-2022 Telemedicine consultation with patient Zoila Valiente APRN.NUCLEAR FUEL PROCESSING TECHNICIAN Work Phone: [facility] Start: 06-17-2022 End: 06-17-2022 Emergency department patient visit Dr. Ricardo Ruiz Work Phone: [facility] Start: 06-07-2022 End: 06-11-[address] RICARDO RUIZ DO [facility] Start: 06-04-2022 End: 06-08-[address] RICARDO RUIZ DO [facility] Start: 05-26-2022 End: 05-30-2022 Outreach Lab SCOOBY FRITZ TAPER [employer] LAYOUT-NUCLEAR FUEL PROCESSING TECHNICIAN [facility] Start: 05-21-2022 Non-patient / Non-visit Dr. Flakito Ruiz Work Phone: [facility] Start: 05-20-2022 Non-patient / Non-visit Dr. Flakito Ruiz Work Phone: [facility] Start: 05-20-2022 End: 05-21-2022 Evaluation and management of inpatient Dr. Ricardo Ruiz Work Phone: [facility]Medical Surgical 3 Start: 05-20-2022 End: 05-21-[address] Ricardo Ruiz Work Phone: [facility] Work Phone: Start: 05-08-2022 End: 05-08-2022 ambulatory Zoila Valiente APRN.NUCLEAR FUEL PROCESSING TECHNICIAN Work Phone: Pain Management Comment on above: Chronic pain syndrom e (Primary Dx); 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; Lumbar radiculopathy; Chronic pain of left ankle; Arthropathy of lumbar facet joint Start: 05-08-2022 End: 05-08-2022 Telemedicine consultation with patient Zoila Valiente APRN.NUCLEAR FUEL PROCESSING TECHNICIAN Work Phone: [facility] Start: 03-25-2022 End: 03-26-2022 Emergency department patient visit CHRISTINA GOMEZ MD [facility] Start: 03-23-2022 End: 03-23-2022 Emergency department patient visit Dr. Ricardo Ruiz Work Phone: [facility] Start: 03-13-2022 End: 03-13-2022 [facility] Zoila Valiente APRN.NUCLEAR FUEL PROCESSING TECHNICIAN Work Phone: Pain Management Comment on above: Chronic pain syndrom e (Primary Dx); Lumbar radiculopathy; Chronic pain disorder; Chronic pain of left ankle; Degeneration of intervertebral disc of lumbar region; Arthropathy of lumbar facet joint; Low back pain with sciatica, sciatica laterality unspecified, unspecified back pain laterality, unspecified chronicity; Fibromyositis; Lumbar post-laminectomy syndrome Start: 03-11-2022 End: 11-27-2022 Radiation Therapy DERIAN PATIÑO MD [facility] Start: 03-09-2022 End: 03-10-2022 Emergency department patient visit Dr. Ricardo Ruiz Work Phone: [facility] Start: 03-03-2022 Non-patient / Non-visit Dr. Flakito Ruiz Work Phone: [facility] Start: 02-26-2022 Chart abstracting Zoila naylor APRN.CNP Work Phone: Pain Management Start: 02-20-2022 End: 02-20-[address] [facility] Start: 02-18-2022 End: 02-18-[address] Ricardo Ruiz [facility] Phone[facility] Start: 02-17-2022 End: 02-17-[address] [facility] Start: 02-17-[address] Ricardo Ruiz Work Phone: [facility] On[facility] Start: 02-17-2022 End: 02-17-[address] Ricardo Ruiz Work Phone: [facility] Start: 02-14-2022 End: 02-14-[address] Ricardo Ruiz Work Phone: [facility] Start: 02-11-2022 [facility]istered [facility] Start: 02-06-2022 End: 02-06-2022 [facility] Start: 02-04-2022 End: 02-04-2022 Patient encounter procedure JOCELIN PEACOCK MD [facility] Start: 01-17-2022 End: 01-21-2022 Outreach Lab ASPEN AVINA MD [facility] Start: 01-09-2022 End: 01-09-2022 Subsequent hospital visit by physician Zoila Camilo APRN.NUCLEAR FUEL PROCESSING TECHNICIAN Work Phone: [facility] Comment on above: VIRTUAL Start: 01-07-2022 End: 01-07-2022 Patient encounter procedure Joseph Retana MD Work Phone: Urology Comment on above: Hydronephrosis, unsp ecified hydronephrosis type (Primary Dx) Start: 12-11-2021 End: 12-11-2021 Subsequent hospital visit by physician [facility] Comment on above: Hydronephrosis, unsp ecified hydronephrosis type [N13.30] Start: 12-04-2021 End: 12-04-2021 Patient encounter procedure [facility] Spec[facility] Start: 12-04-2021 End: 12-04-[address] MAYRA MOREL MD [facility] Start: 11-25-2021 End: 11-25-[address] MAYRA MOREL MD [facility] Start: 10-24-2021 End: 10-26-2021 Evaluation and management of inpatient DR CEDRIC LIAO MD [facility] Start: 10-08-2021 End: 10-08-2021 Emergency department patient visit [facility] Start: 09-10-2021 End: 09-10-2021 Emergency department patient visit [facility] Start: 06-25-2021 End: 06-29-2021 Outreach Lab WILLIAM HUSSEIN MD [facility] Start: 10-09-2020 End: 10-09-2020 Orders Only Cain Wu Work Phone: [facility] Start: 10-17-2019 End: 10-17-2019 Office outpatient visit 15 minutes Ani Nunez Work Phone: [facility] Comment on above: Status post total kn ee replacement, unspecified laterality (Primary Dx); Pain and swelling of knee, unspecified laterality; Spondylolisthesis of lumbar region Start: 10-17-2019 End: 10-21-2019 Patient encounter procedure ANI NUNEZ [facility] Start: 10-06-2019 End: 10-10-2019 Patient encounter procedure AMERICA PECK [facility] Start: 10-06-2019 End: 10-06-2019 Office outpatient new 30 minutes America Peck Work Phone: [facility] Comment on above: Status post total kn ee replacement, unspecified laterality (Primary Dx); Pain and swelling of knee, unspecified laterality Start: 03-27-2017 Ambulatory MOISES Anguiano ility:[facility] Start: 03-11-2017 End: 03-12-2017 Ambulatory PHY WO ID REFERRING Facility:[facility] Procedures Date Procedure Procedure Detail Performing Clinician Start: 03-06-2025 X-ray of esophagus with double contrast Dr. Ricardo Ruiz DO Work Phone: Start: 12-13-2024 Endomysial antibody IgA level Dr. Ricardo Ruiz DO Work Phone: Start: 10-18-2024 CT of head without contrast Dr. Ricardo heaton DO Work Phone: Start: 10-18-2024 SARS-CoV-2, Influenza & RSV (PCR) Dr. Flakito Ruiz DO Work Phone: Start: 03-30-2023 CT of head without contrast Dr. Ricardo heaton Work Phone: Start: 02-10-2023 CT of abdomen and pelvis without contrast Dr. Ricardo Ruiz Work Phone: Start: 11-17-2022 CT angiography of chest with contrast Start: 11-17-2022 Plain chest X-ray Start: 08-28-2022 Plain chest X-ray Dr. Ricardo Ruiz Work Phone: Start: 08-27-2022 CT of head without contrast Dr. Ricardo heaton Work Phone: Start: 06-17-2022 CT cervical spine without contrast Dr. Rubina Ruiz Work Phone: Start: 06-17-[address] Ricardo Ruiz Work Phone: Start: 06-17-2022 CT of head without contrast Dr. Ricardo heaton Work Phone: Start: 05-20-2022 CT of head without contrast Dr. Ricardo heaton Work Phone: Start: 03-23-2022 Computed tomography of abdomen and pelvis with intravenous contrast Dr. Ricardo Ruiz Work Phone: Start: 03-09-2022 Plain x-ray of pelvis and lower extremity Dr. Ricardo Ruiz Work Phone: Start: 03-09-2022 Plain X-ray of shoulder Dr. Ricardo Ruiz Work Phone: Start: 02-20-2022 Computed tomography of abdomen and pelvis with contrast Dr. Ricardo Ruiz Work Phone: Start: 02-18-2022 Radionuclide whole body bone study Dr. Rubina Ruiz Work Phone: Start: 01-07-2022 Urnls dip stick/tablet rgnt auto w/o microscopy Joseph Retana MD Work Phone: Start: 12-11-2021 Ct abdomen & pelvis w/o contrst 1/> body re Joseph Retana MD Work Phone: Start: 12-04-2021 Investigation of transfusion reaction Start: 12-04-2021 Respiratory microbial culture Start: 11-25-2021 Cardiac catheterization ASPEN AVINA MD Comment on above: Mild to moderate CAD Start: 10-08-2021 Plain chest X-ray Start: 10-08-2021 Plain X-ray of shoulder Start: 10-08-2021 CT of head without contrast Start: 10-08-2021 Influenza Types A,B Direct FA (BHAVANI) Start: 09-14-2021 History of right mastectomy JOSE CARLOS Holt MD Start: 09-10-2021 CT of abdomen and pelvis without contrast Start: 09-10-2021 Plain x-ray of humerus Start: 09-10-2021 X-ray of chest posteroanterior view Start: 09-10-2021 Urine culture Start: 06-25-2018 Mastectomy of right breast WILLIAM Lynn MD Start: 05-05-2018 Breast biopsy and related procedures WILLIAM HUSSEIN MD Comment on above: RIGHT Start: 09-14-2017 Lumpectomy of right breast JOSE CARLOS BARRIOS MD Start: 09-14-2015 Appendectomy JOSE CARLOS BARRIOS MD Start: 09-14-2012 Total knee replacement JOSE CARLOS BARRIOS MD Comment on above: RIGHT Appendectomy WILLIAM HUSSEIN MD Comment on above: WITH 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 Ricardo Ruiz Work Phone: Repair of meniscus WILLIAM SAHU MD Comment on above: X2 Repair of meniscus JOSE CARLOS SANZ MD Comment on above: X2 RIGHT Respiratory microbial culture Dr. Ricardo Ruiz Work Phone: Spinal arthrodesis WILLIAM SAHU MD Comment on above: X2- THORACIC AND LUMBAR/SACRUM Spinal arthrodesis [facility] TAPER PRINTED CIRCUIT LAYOUT-NUCLEAR FUEL PROCESSING TECHNICIAN Comment on above: 2011 Surgery (qualifier value) KIM HUSSEIN MD Comment on above: LEFT ARM TENDON REATTACHED. Total knee replacement LORETO HUSSEIN MD Comment on above: RIGHT Tumor of bladder neck (disorder) WILLIAM HUSSEIN MD Comment on above: TUMORS INSIDE BLADDER REMOVED, CYSTS AND ADHESIONS REMOVED FROM OUTSIDE OF BLADDER Urine culture Dr. Ricardo steen Work Phone: Urine culture Viral antigen assay Dr. Erik Ruiz Work Phone: Plan of Treatment Date Care Activity Detail Author Start: 08-03-2025 End: 08-03-2025 Patient encounter procedure 08/03/2025 10:00 AM EST Office Visit PAIN [facility] [address] [address] Zoila Valiente, TAPER PRINTED CIRCUIT LAYOUT.NUCLEAR FUEL PROCESSING TECHNICIAN [address] [place] [address] follow up PAIN [facility] Comment on above: follow up Start: 05-15-2025 Influenza vaccination [facility] Start: 05-05-2025 End: 05-05-2025 Follow-up encounter 05/05/2025 2:45 PM EDT [facility] [address] [place] [address] Zoila Valiente, TAPER PRINTED CIRCUIT LAYOUT.NUCLEAR FUEL PROCESSING TECHNICIAN [address] [place] [address] Follow Up Pain Management Comment on above: Follow Up Start: 03-02-2025 End: 03-02-2025 Patient encounter procedure 03/02/2025 10:30 AM EDT Office Visit PAIN [address] [place] [address] Zoila Valiente, TAPER PRINTED CIRCUIT LAYOUT.NUCLEAR FUEL PROCESSING TECHNICIAN [address] [place] [address] follow up PAIN [facility] Comment on above: follow up Start: 12-29-2024 End: 12-29-2024 Follow-up encounter 12/29/2024 3:30 PM EDT [facility] [address] [place] [address] Zoila Valiente, TAPER PRINTED CIRCUIT LAYOUT.NUCLEAR FUEL PROCESSING TECHNICIAN [address] [place] [address] follow up PAIN [facility] Comment on above: follow up Start: 10-18-2024 End: 10-19-2024 [facility] Start: 10-12-2024 End: 10-12-2024 Patient encounter procedure 10/12/2024 10:30 AM EST Office Visit PAIN [address] [place] [address] Zoila Valiente, TAPER PRINTED CIRCUIT LAYOUT.NUCLEAR FUEL PROCESSING TECHNICIAN [address] [place] [address] FOLLOW UP PAIN [facility] Comment on above: FOLLOW UP Start: 10-04-2024 End: 10-04-2024 Patient encounter procedure 10/04/2024 8:00 AM EST Office Visit PAIN [address] [place] [address] Zoila Valiente, TAPER PRINTED CIRCUIT LAYOUT.NUCLEAR FUEL PROCESSING TECHNICIAN [address] [place] [address] FOLLOW UP PAIN [facility] Comment on above: FOLLOW UP Start: 09-20-2024 End: 09-20-2024 Patient encounter procedure 09/20/2024 2:30 PM EST Office Visit URO/Gynecology [address] [place] [address] Luz Smith MD [address] [place] [address] Bladder Prolapse [facility] Comment on above: Bladder Prolapse Start: 09-14-2024 Advance Directive Discussion Advance Directive Discussion [facility] Start: 08-04-2024 End: 08-04-2024 Follow-up encounter 08/04/2024 4:00 PM EST [facility] PAIN [facility] [address] [place] [address] Zoila Valiente, TAPER PRINTED CIRCUIT LAYOUT.NUCLEAR FUEL PROCESSING TECHNICIAN [address] [place] [address] 2 month follow up PAIN [facility] Comment on above: 2 month follow up Start: 06-03-2024 End: 06-03-2024 Patient encounter procedure 06/03/2024 8:30 AM EDT Office Visit Pain Management [address] [place] [address] Zoila Valiente, TAPER PRINTED CIRCUIT LAYOUT.NUCLEAR FUEL PROCESSING TECHNICIAN [address] [place] [address] 2 Month Follow up [place] [facility] Comment on above: 2 Month Follow up [place] Start: 05-15-2024 Covid-19 Vaccine ( season) Covid-19 Vaccine ( season) [facility] Start: 05-15-2024 Covid-19 Vaccine ( season) Covid-19 Vaccine ( season) [facility] Start: 05-15-2024 Influenza vaccination Influenza Vacc ine (#1) [facility] Start: 04-06-2024 End: 04-06-2024 Follow-up encounter 04/06/2024 10:30 AM EDT [facility] [address] [place] [address] Zoila Valiente, TAPER PRINTED CIRCUIT LAYOUT.NUCLEAR FUEL PROCESSING TECHNICIAN [address] [place] [address] 2 month follow up Pain Management Comment on above: 2 month follow up Start: 04-05-2024 End: 04-05-2024 Follow-up encounter 04/05/2024 11:00 AM EDT [facility] [address] [facility] [place] [address] Zoila Valiente, TAPER PRINTED CIRCUIT LAYOUT.NUCLEAR FUEL PROCESSING TECHNICIAN [address] [place] [address] 2 month follow up Pain Management Comment on above: 2 month follow up Start: 02-02-2024 End: 02-02-2024 Follow-up encounter 02/02/2024 2:00 PM EDT [facility] [address] [place] [address] Zoila Valiente, TAPER PRINTED CIRCUIT LAYOUT.NUCLEAR FUEL PROCESSING TECHNICIAN [address] [place] [address] follow up Pain Management Comment on above: follow up Start: 12-17-2023 BP CONTROLLED (<130/80) BP CONTROLLE D (<130/80) [facility] Start: 11-03-2023 BP CONTROLLED (<130/80) BP CONTROLLE D (<130/80) [facility] Start: 09-14-2023 Advance Directive Discussion Advance Directive Discussion [facility] Start: 09-14-2023 Behavioral Health Screening Behavioral Health Screening [facility] Start: 09-14-2023 Depression Assessment Depression Ass essment [facility] Start: 05-15-2023 Covid-19 Vaccine ( season) Covid-19 Vaccine () [facility] Start: 05-15-2023 Influenza vaccination C [facility] Start: 03-31-2023 Bacteria identified in Urine by Culture Urine Culture [facility] Start: 03-31-2023 [facility] Start: 01-06-2023 Patient referral [facility] Work Phone: Start: 12-30-2022 End: 03-01-2023 Lipid 1996 panel - Serum or Plasma LIPID PANEL BASIC Lab Routine Lacunar infarction (HCC) Expected: 12/30/2022, Expires: 03/01/2023 [facility] Work Phone: Comment on above: Expected: 12/30/2022 , Expires: 03/01/2023 Start: 12-18-2022 COVID-19 VACCINE (5 - Pfizer series) COVID-19 VACCINE (5 - Pfizer series) [facility] Start: 12-16-2022 End: 02-15-2023 Hemoglobin A1c in Blood HGB A1C Lab Routine Lacunar infarction (HCC) Cerebrovascular accident (CVA), unspecified mechanism (HCC) Prediabetes Expected: 12/16/2022, Expires: 02/15/2023 [facility] Work Phone: Comment on above: Expected: 12/16/2022 , Expires: 02/15/2023 Start: 11-17-2022 End: 11-17-2022 [facility] Start: 09-14-2022 ADVANCE DIRECTIVE DISCUSSION ADVANCE DIRECTIVE DISCUSSION [facility] Start: 09-14-2022 DEPRESSION ASSESSMENT DEPRESSION ASS ESSMENT [facility] Start: 08-28-2022 [facility] Work Phone: Start: 05-21-2022 Patient discharge [facility] Work Phone: Start: 05-20-2022 Introduction of urin andie catheter [facility] Work Phone: Start: 05-20-2022 Following clinical pathway protocol [facility] Work Phone: Start: 05-20-2022 Referral to occupati onal therapist [facility] Work Phone: Start: 05-20-2022 Referral to service [place] Work Phone: Start: 05-20-2022 Speech therapy assessment [facility] Work Phone: Start: 05-20-2022 Ambulation without limitation [facility] Work Phone: Start: 05-20-2022 Assessment of risk o f venous thromboembolism [facility] Work Phone: Start: 05-20-2022 Insertion of cathete r into peripheral vein [facility] Work Phone: Start: 05-20-2022 Providing care accor ding to standard [facility] Work Phone: Start: 05-20-2022 [facility] Work Phone: Start: 05-20-2022 Admission procedure [place] Work Phone: Start: 05-20-2022 Patient referral to dietitian [facility] Work Phone: Start: 05-15-2022 Influenza vaccination INFLUENZA (#1) [facility] Start: 05-15-2022 End: 07-15-2022 PAIN PANEL, UR QUANT PAIN PANEL, UR QUANT Lab Routine 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 Expected: 05/15/2022 (Approximate), Expires: 07/15/2022 [facility] Work Phone: Comment on above: Expected: 05/15/2022 (Approximate), Expires: 07/15/2022 Start: 03-09-2022 End: 03-09-2022 Blood culture [facility] Work Phone: Start: 03-09-2022 [facility] Work Phone: Start: 02-20-2022 Computed tomography of abdomen and pelvis with contrast Abdomen/Pelvis WITH Contrast [facility] Work Phone: Start: 02-14-2022 Patient referral [facility] Work Phone: Start: 10-21-2021 COVID-19 VACCINE (4 - Booster for Pfizer series) COVID-19 VACCINE (4 - Booster for Pfizer series) [facility] Start: 09-14-2021 ADVANCE DIRECTIVE DISCUSSION ADVANCE DIRECTIVE DISCUSSION [facility] Start: 09-14-2021 DEPRESSION ASSESSMENT DEPRESSION ASS ESSMENT [facility] Start: 08-15-2021 COVID-19 VACCINE (4 - Booster for Pfizer series) COVID-19 VACCINE (4 - Booster for Pfizer series) [facility] Start: 05-15-2020 Influenza vaccinatio n given Sequential Influenza Vaccine (#1) [facility] Start: 10-17-2019 End: 10-17-2019 Office Visit [facility] Start: 05-15-2019 Influenza vaccinatio n given SEQUENTIAL INFLUENZA VACCINE (#1) [facility] Start: 2018 RSV Vaccine (1 - 1-d ose 75+ series) RSV Vaccine (1 - 1-dose 75+ series) [facility] Start: 06-14-2015 Pneumococcal vaccination PNEUM OCOCCAL VACCINE AGE 65+ (2 of 2 - PPSV23) [facility] Start: 06-14-2015 PNEUMOCOCCAL: 65+ (2 - PPSV23 if available, else PCV20) PNEUMOCOCCAL: 65+ (2 - PPSV23 if available, else PCV20) [facility] Start: 06-14-2015 PNEUMOCOCCAL: 65+ (2 - PPSV23 or PCV20) PNEUMOCOCCAL: 65+ (2 - PPSV23 or PCV20) [facility] Start: 08-09-2014 Pneumococcal Vaccine : 50+ (2 of 2 - PPSV23) Pneumococcal Vaccine: 50+ (2 of 2 - PPSV23) [facility] Start: 08-09-2014 Pneumococcal Vaccine : 50+ (2 of 2 - PPSV23, PCV20, or PCV21) Pneumococcal Vaccine: 50+ (2 of 2 - PPSV23, PCV20, or PCV21) [facility] Start: 08-09-2014 Pneumococcal Vaccine : 65+ (2 - PPSV23 or PCV20) Pneumococcal Vaccine: 65+ (2 - PPSV23 or PCV20) [facility] Start: 08-09-2014 Pneumococcal Vaccine : 65+ (2 of 2 - PPSV23 or PCV20) Pneumococcal Vaccine: 65+ (2 of 2 - PPSV23 or PCV20) [facility] Start: 08-09-2014 PNEUMOCOCCAL: 65+ (2 - PPSV23 if available, else PCV20) PNEUMOCOCCAL: 65+ (2 - PPSV23 if available, else PCV20) [facility] Start: 08-09-2014 PNEUMOCOCCAL: 65+ (2 - PPSV23 or PCV20) PNEUMOCOCCAL: 65+ (2 - PPSV23 or PCV20) [facility] Start: 2008 BONE DENSITY BONE DENSITY [facility] Start: 2008 Bone Density Screening Bone Density Screening [facility] Start: 2008 PNEUMOCOCCAL: 65+ (1 - PCV) PNEUMOCOCCAL: 65+ (1 - PCV) [facility] Start: 2008 PNEUMOVAX AGE 65 AND OVER WITH 5YR LOOKBACK (#1) PNEUMOVAX AGE 65 AND OVER WITH 5YR LOOKBACK (#1) [facility] Start: 2008 Screening for osteoporosis Bone Density Screening [facility] Start: 07-15-2008 Medicare Annual Well ness Visit Medicare Annual Wellness Visit [facility] Start: 2003 RSV Vaccine (1 - 1-d ose 60+ series) RSV Vaccine (1 - 1-dose 60+ series) [facility] Start: 1993 Administration of he rpes zoster vaccine Zoster Vaccines (1 of 2) [facility] Start: 1993 SHINGRIX VACCINE (1 of 2) BENITEZ GRIX VACCINE (1 of 2) [facility] Start: 1988 DIABETES SCREEN DIABETES SCREEN [facility] Start: 1988 Diabetes Screening Diabetes Screenin g [facility] Start: 1962 Urine microalbumin profile [facility] Start: 1961 ANNUAL PCP TEAM ANALYTICAL DATA SCIENTIST LAMIN DISEASE VISIT ANNUAL PCP TEAM CHRONIC DISEASE VISIT [facility] Start: 1961 BP CONTROLLED (<130/80) BP CONTROLLE D (<130/80) [facility] Start: 1961 Depression Screening Depression Scre ening [facility] Start: 1961 Hepatitis C antibody , confirmatory test Hepatitis C Screening [facility] Start: 1961 HEPATITIS C SCREENING HEPATITIS C SC AUGUSTUS [facility] Start: 1961 SPIROMETRY SPIROMETRY [facility] Start: 1959 COVID-19 Vaccine (1 of 2) COVI D-19 Vaccine (1 of 2) [facility] Start: 1955 Adolescent depressio n screening assessment [facility] Start: 1946 History and physical examination, annual for health maintenance Wellness Visit [facility] Start: 1943 Depression screening using PHQ-9 (Patient Health Questionnaire 9) score DEPRESSION SCREENING (PHQ9) [facility] Start: 1943 Fall risk assessment Falls Risk Asse ssment [facility] Start: 1943 Screening for osteoporosis Dexa Scan [facility] Start: 1943 Screening mammography [facility] Start: 1943 Tetanus vaccination [place] Bacteria identified in Blood by Culture Blood Culture [facility] Work Phone: Bacteria identified in Urine by Culture Urine Culture [facility] Work Phone: Blood culture [facility] Work Phone: End: 10-06-2020 Complete blood count with white cell differential, manual CBC and differential Lab Routine Status post total knee replacement, unspecified laterality Pain and swelling of knee, unspecified laterality 1 Occurrences starting 10/06/2019 until 10/06/2020 [facility] Comment on above: 1 Occurrences starti ng 10/06/2019 until 10/06/2020 End: 10-06-2020 CRP [Mass/Vol] C-reactive protein Lab Routine Status post total knee replacement, unspecified laterality Pain and swelling of knee, unspecified laterality 1 Occurrences starting 10/06/2019 until 10/06/2020 [facility] Comment on above: 1 Occurrences starti ng 10/06/2019 until 10/06/2020 Ct abdomen & pelvis w/o contrst 1/> body re CT UROGRAM WO/W IVCON Radiology Routine Hydronephrosis, unspecified hydronephrosis type 12/11/2021 2:19 PM EDT [facility] Work Phone: End: 10-06-2020 ESR (Bld) [Velocity] Sedimentation Rate Lab Routine Status post total knee replacement, unspecified laterality Pain and swelling of knee, unspecified laterality 1 Occurrences starting 10/06/2019 until 10/06/2020 [facility] Comment on above: 1 Occurrences starti ng 10/06/2019 until 10/06/2020 End: 10-06-2020 Miscellaneous Lab Test Miscellaneous Lab Test Lab Routine Status post total knee replacement, unspecified laterality Pain and swelling of knee, unspecified laterality 1 Occurrences starting 10/06/2019 until 10/06/2020 [facility] Comment on above: 1 Occurrences starti ng 10/06/2019 until 10/06/2020 End: 12-03-2023 Mra head w/o contrst material MRV BRAIN WO IVCON Radiology Routine Intractable acute post-traumatic headache 1 Occurrences starting 11/03/2022 until 12/03/2023 [facility] Work Phone: Comment on above: 1 Occurrences starti ng 11/03/2022 until 12/03/2023 End: 01-02-2024 Mra head w/o contrst material MRA BRAIN WO IVCON Radiology Routine Cerebral infarction, unspecified mechanism (HCC) 1 Occurrences starting 12/03/2022 until 01/02/2024 [facility] Work Phone: Comment on above: 1 Occurrences starti ng 12/03/2022 until 01/02/2024 End: 12-03-2023 Mri brain brain stem w/o contrast material MRI BRAIN WO IVCON Radiology Routine Intractable acute post-traumatic headache 1 Occurrences starting 11/03/2022 until 12/03/2023 [facility] Work Phone: Comment on above: 1 Occurrences starti ng 11/03/2022 until 12/03/2023 End: 12-03-2023 Mri spinal canal cervical w/o contrast matrl MRI CERVICAL SPINE WO IVCON Radiology Routine Intractable acute post-traumatic headache 1 Occurrences starting 11/03/2022 until 12/03/2023 [facility] Work Phone: Comment on above: 1 Occurrences starti ng 11/03/2022 until 12/03/2023 Patient Education [facility] Work Phone: Patient referral [facility] Work Phone: PT PLAN OF CARE CERTIFICATION PT PLAN OF CARE CERTIFICATION Procedures Routine Lumbar radiculopathy Fibromyositis Neck pain Ordered: 04/14/2023 [facility] Comment on above: Ordered: 04/14/2023 SPINE INTERVENTION PROCEDURE SPINE INTERVENTION PROCEDURE Procedures Routine Cervical disc disorder with radiculopathy Ordered: 02/06/2023 [facility] Work Phone: Comment on above: Ordered: 02/06/2023 TOXASSURE FLEX 23, URINE TOXASSU RE FLEX 23, URINE Lab Routine care home (current) use of opiate analgesic Ordered: 06/03/2024 [facility] Work Phone: Comment on above: Ordered: 06/03/2024 TOXASSURE FLEX 23, URINE TOXASSU RE FLEX 23, URINE Lab Routine care home (current) use of opiate analgesic Ordered: 10/12/2024 [facility] Work Phone: Comment on above: Ordered: 10/12/2024 TOXASSURE FLEX 23, URINE TOXASSU RE FLEX 23, URINE Lab Routine care home (current) use of opiate analgesic Ordered: 03/02/2025 [facility] Work Phone: Comment on above: Ordered: 03/02/2025 End: 12-04-2023 US CAROTID ARTERIES [facility] US CAROTID ARTERIES [facility] Lab Routine Lacunar stroke (HCC) Cerebral infarction, unspecified mechanism (HCC) 1 Occurrences starting 12/03/2022 until 12/04/2023 [facility] Work Phone: Comment on above: 1 Occurrences starti ng 12/03/2022 until 12/04/2023 [facility] Immunizations Immunization Date Immunization Notes Care Provider [facility] 08-13-2023 influenza (HD-IIV4) vaccine, age 65+ yr, high dose, quadrivalent, PF (FLUZONE HIGH-DOSE) Zoila Valiente APRN.NUCLEAR FUEL PROCESSING TECHNICIAN Work Phone: [facility] 08-13-2023 influenza virus vaccine, unspecified formulation HANANE RODRIGUEZ MD [facility] 07-11-2022 influenza (aIIV4) vaccine, age 65+ yr, quadrivalent, PF (FLUAD QUADRIVALENT) Zoila Valiente APRN.NUCLEAR FUEL PROCESSING TECHNICIAN Work Phone: [facility] Work Phone: 07-11-2022 influenza, high dose seasonal, preservative-free NATASHA FREEDMAN TAPER PRINTED CIRCUIT LAYOUT-NUCLEAR FUEL PROCESSING TECHNICIAN [facility] 07-11-2022 influenza virus vaccine, unspecified formulation Zoila Rocco TAPER PRINTED CIRCUIT LAYOUT.NUCLEAR FUEL PROCESSING TECHNICIAN Work Phone: [facility] 10-26-2021 influenza nasal, unspecified formulation Zoila Rocco TAPER PRINTED CIRCUIT LAYOUT.NUCLEAR FUEL PROCESSING TECHNICIAN Work Phone: [facility] Work Phone: 10-26-2021 influenza virus vaccine, unspecified formulation [facility] TAPER PRINTED CIRCUIT LAYOUT-NUCLEAR FUEL PROCESSING TECHNICIAN [facility] 10-26-2021 influenza, injectabl e, quadrivalent, preservative free; Translations: [Fluarix PF Quadrivalent ] DR CEDRIC LIAO MD [facility] 06-20-2021 SARS-CoV-2 mRNA (tozinameran) vaccine [facility] T[employer] PR[employer]ED CIRCUIT LAYOUT-NUCLEAR FUEL PROCESSING TECHNICIAN [facility] 11-11-2020 SARS-CoV-2 mRNA (tozinameran) vaccine [facility] T[employer] PR[employer]ED CIRCUIT LAYOUT-NUCLEAR FUEL PROCESSING TECHNICIAN [facility] Comment on above: Result Comment: 2021: [id number] 10-22-2020 SARS-CoV-2 mRNA (tozinameran) vaccine [facility] T[employer] PR[employer]ED CIRCUIT LAYOUT-NUCLEAR FUEL PROCESSING TECHNICIAN [facility] Comment on above: Result Comment: 2021: [id number] 07-11-2020 influenza, injectabl e, quadrivalent, preservative free; Translations: [Fluarix PF Quadrivalent ] WILLIAM HUSSEIN MD [facility] 07-11-2020 influenza nasal, unspecified formulation Zoila Rocco TAPER PRINTED CIRCUIT LAYOUT.NUCLEAR FUEL PROCESSING TECHNICIAN Work Phone: [facility] Work Phone: 07-11-2020 influenza virus vaccine, unspecified formulation SCOOBY FRITZ TAPER PRINTED CIRCUIT LAYOUT-NUCLEAR FUEL PROCESSING TECHNICIAN [facility] 06-14-2014 pneumococcal conjuga te vaccine, 13 valent [facility] Payers Date Payer Category Payer Self-pay [id number] 2008 Private Health Insurance [id number] 2008 Medicare [id number] 2008 Medicare [id number] 2008 Medicare [id number] 2005 Medicare xxxxxxxxxxx [id number] 2005 Private Health Insurance [id number] 2005 Private Health Insurance [id number] 1943 Unknown [id number] 2.16.8 40.1.893344.3.579.2.627 1943 Unknown [id number] 2.16.8 40.1.609814.3.579.2.627 1943 Unknown [id number] 2.16.8 40.1.497067.3.579.2.627 1943 Unknown [id number] 2.16.8 40.1.552741.3.579.2.627 1943 Unknown [id number] 2.16.8 40.1.791774.3.579.2.627 1943 Unknown [id number] 2.16.8 40.1.084460.3.579.2. 1943 Unknown [id number] 2.16.8 40.1.602046.3.579.2. 1943 Unknown [id number] 2.16.8 40.1.957250.3.579.2. 1943 Unknown [id number] 2.16.8 40.1.457973.3.579.2. 1943 Unknown [id number] 2.16.8 40.1.368846.3.579.2. 1943 Unknown [id number] 2.16.8 40.1.328141.3.579.2. 1943 Unknown [id number] 2.16.8 40.1.432404.3.579.2. 1943 Unknown [id number] 2.16.8 40.1.469488.3.579.2. 1943 Unknown [id number] 2.16.8 40.1.755522.3.579.2. 1943 Unknown [id number] 2.16.8 40.1.251406.3.579.2. 1943 Unknown [id number] 2.16.8 40.1.496667.3.579.2. 1943 Unknown [id number] 2.16. 840.1.403564.3.579.2. 1943 Unknown [id number] 2.16. 840.1.805975.3.579.2. 1943 Unknown [id number] 2.16. 840.1.529236.3.579.2. 1943 Unknown [id number] 2.16. 840.1.531804.3.579.21943 Unknown [id number] 2.16. 840.1.621279.3.579.2. 1943 Unknown [id number] 2.16. 840.1.190628.3.579.2 1943 Unknown [id number] 2.16.8 40.1.379922.3.579.2. 1943 Unknown [id number] 2.16.8 40.1.121285.3.579.2. 1945 Unknown [id number] 2.16.8 40.1.612846.3.579.2. 1945 Unknown [id number] 2.16.8 40.1.987728.3.579.2 1943 Unknown [id number] 2.16.8 40.1.512466.3.579.2 1943 Unknown [id number] 2.16. 840.1.518955.3.579.2 1943 Unknown [id number] 2.16. 840.1.854519.3.579.2 1943 Unknown [id number] 2.16. 840.1.978153.3.579.2 1943 Unknown [id number] 2.16. 840.1.711773.3.579.2 1943 Unknown [id number] 2.16. 840.1.790963.3.579.2. 1943 Unknown [id number] 2.16. 840.1.832925.3.579.2 1943 Unknown [id number] 2.16. 840.1.638372.3.579.2. 1943 Unknown [id number] 2.16. 840.1.008906.3.579.2 1943 Unknown [id number] 2.16. 840.1.789105.3.579.2.627 1943 Unknown [id number] 2.16.8 40.1.482374.3.579.2.627 1943 Unknown [id number] 2.16.8 40.1.447071.3.579.2.627 1943 Unknown [id number] 2.16.8 40.1.334502.3.579.2.627 1943 Unknown [id number] 2.16.8 40.1.886198.3.579.2.627 1943 Unknown [id number] 2.16.8 40.1.607160.3.579.2.627 1943 Unknown [id number] 2.16.8 40.1.691572.3.579.2.627 1943 Unknown [id number] 2.16.8 40.1.943175.3.579.2.627 1943 Unknown [id number] 2.16.8 40.1.084745.3.579.2.627 1943 Unknown [id number] 2.16.8 40.1.899418.3.579.2.627 1943 Unknown [id number] 2.16.8 40.1.064777.3.579.2.627 1943 Unknown [id number] 2.16. 840.1.435029.3.579.2.903 1943 Unknown [id number] 2.16. 840.1.370266.3.579.2.903 1943 Unknown [id number] 2.16. 840.1.531613.3.579.2.903 1943 Unknown [id number] 2.16. 840.1.765698.3.579.2.90 1943 Unknown [id number] 2.16. 840.1.559325.3.579.2.903 1943 Unknown [id number] 2.16. 840.1.215203.3.579.2.903 Unknown [id number] 2.16.8 40.1.237109.3.579.2.462 Unknown [id number] 2.16.8 40.1.397737.3.579.2.462 Unknown [id number] 2.16.8 40.1.592103.3.579.2.462 Social History Date Type Detail Facility Start: 10-14-2019 End: 05-22-2025 Tobacco smoking status NHIS Former smoker [facility] Comment on above: No Tobacco/Smoke Exp osure NO TOBACCO Start: 10-14-2019 End: 10-17-2019 Alcohol intake Ex-drinker (finding) [facility] Start: 1945 Sex Assigned At Not on file [facility] Start: 10-17-2019 End: 06-03-2024 Tobacco use and exposure Never used [facility] Start: 1945 Sex Assigned At Female [facility] Start: 10-08-2021 End: 03-30-2023 Tobacco smoking status [facility] Unknown if ever smoked [facility] Start: 06-21-2016 None [facility] Start: 03-23-2021 Homeless [facility] Start: 06-21-2016 Non-smoker [facility] Start: 09-14-1967 End: 09-14-1982 History of tobacco use Current smoker [facility] Work Phone: Start: 09-14-1967 End: 09-14-1982 History of tobacco use Cigarette Smoker [facility] Work Phone: Start: 11-08-2021 End: 05-05-2025 Alcohol intake Current non-drinker of alcohol (finding) [facility] Start: 12-01-2021 End: 04-16-2022 Exposure to SARS-CoV-2 (event) Not sure [facility] Tobacco smoking status [facility] Start: 05-06-2022 End: 10-18-2024 Tobacco smoking status Never smoked tobacco (finding) [facility] Start: 01-27-2023 End: 03-25-2023 History of Social function [facility] Start: 01-27-2023 End: 03-25-2023 Tobacco use panel [facility] Start: 08-15-2012 Adult Depression Screening Assessment 0 [facility] Start: 03-10-2022 Gender identity Identifies as female gender (finding) [facility] Start: 03-10-2022 Sexual orientation Heterosexual (fin ding) [facility] Start: 11-09-2019 End: 12-19-2024 Sex Female (finding) [facility] Goals Date Patient Goal Desired Activity /State Functional Status Date Assessment Result Facility 05-21-2022 Functional status Activity Abili ty Standby Assist [facility] Work Phone: 05-21-2022 Functional status Ambulates;Bathroom Priv ilege [facility] Work Phone: 03-26-2022 Functional Status ID band on, Allergy Band on, Call device within reach, Bed in low position, Wheels locked, Upper/Half-Length side-rails up, Phone within reach, personal items within reach, Bedside Cart Locked, Visitor at bedside [facility] Mental Status Date Assessment Result Facility 10-18-2024 Cognitive function Level Of Cons ciousness Awake;Alert;Appropriate;Follow s Commands [facility] Work Phone: 08-29-2022 Cognitive function Level Of Cons ciousness Awake;Alert;Appropriate;Follow s Commands [facility] Work Phone: 08-28-2022 Cognitive function Level Of Cons ciousness Awake;Alert;Appropriate;Follow s Commands [facility] Work Phone: 08-27-2022 Cognitive function Level Of Cons ciousness Awake;Alert;Appropriate;Follow s Commands [facility] Work Phone: 05-21-2022 Cognitive function Voice/Name [facility] Work Phone: 05-20-2022 Cognitive function Level Of Cons ciousness Lethargic [facility] Work Phone: 03-26-2022 Mental Status [facility] Cognitive function Level Of Cons ciousness Awake;Appropriate;Follows Commands;Drowsy [facility] Work Phone: Clinical Notes 08-18-2005 to 05-13-2025 Zoila Valiente APRN.[facility] - 05/05/2025 2:45 PM EDTPatient Instructions Note Date & Type Note Facility 05-13-2025 Hospital Discharge instructions Patient Education 05/13/2025 08:24:08 Thyroidectomy, Care After Thyroidectomy, Care After This sheet gives you information about how to care for yourself after your procedure. Your health care provider may also give you more specific instructions. If you have problems or questions, contact your health care provider. What can I expect after the procedure? After the procedure, it is common to have: Mild pain in the neck or upper body, especially when swallowing. A swollen neck. A sore throat. A weak or hoarse voice. Slight tingling or numbness around your mouth, or in your fingers or toes. This may last for a day or two after surgery. This condition is caused by low levels of calcium. You may be given calcium supplements to treat it. Follow these instructions at home: Medicines Take uyjr-jpp-xndaaiv and prescription medicines only as told by your health care provider. Do not drive or use heavy machinery while taking prescription pain medicine. Do not take medicines that contain aspirin and ibuprofen until your health care provider says that you can. These medicines can increase your risk of bleeding. Take a thyroid hormone medicine as recommended by your health care provider. You will have to take this medicine for the rest of your life if your entire thyroid was removed. Eating and drinking Start slowly with eating. You may need to have only liquids and soft foods for a few days or as directed by your health care provider. To prevent or treat constipation while you are taking prescription pain medicine, your health care provider may recommend that you: ?Drink enough fluid to keep your urine pale yellow. ?Take qpsm-rzr-uuayuvv or prescription medicines. ?Eat foods that are high in fiber, such as fresh fruits and vegetables, whole grains, and beans. ?Limit foods that are high in fat and processed sugars, such as fried and sweet foods. Incision care Follow instructions from your health care provider about how to take care of your incision. Make sure you: ?Wash your hands with soap and water before you change your bandage (dressing). If soap and water are not available, use hand shampooer. ?Change your dressing as told by your health care provider. ?Leave stitches (sutures), skin glue, or adhesive strips in place. These skin closures may need to stay in place for 2 weeks or longer. If adhesive strip edges start to loosen and curl up, you may trim the loose edges. Do not remove adhesive strips completely unless your health care provider tells you to do that. Check your incision area every day for signs of infection. Check for: ?Redness, swelling, or pain. ?Fluid or blood. ?Warmth. ?Pus or a bad smell. Do not take baths, swim, or use a hot tub until your health care provider approves. Activity For the first 10 days after the procedure or as instructed by your health care provider: ?Do not lift anything that is heavier than 10 lb (4.5 kg). ?Do not jog, swim, or do other strenuous exercises. ?Do not play contact sports. Avoid sitting for a long time without moving. Get up to take short walks every 1 2 hours. This is needed to improve blood flow and breathing. Ask for help if you feel weak or unsteady. Return to your normal activities as told by your health care provider. Ask your health care provider what activities are safe for you. General instructions Do not use any products that contain nicotine or tobacco, such as cigarettes and e-cigarettes. These can delay healing after surgery. If you need help quitting, ask your health care provider. Keep all follow-up visits as told by your health care provider. This is important. Your health care provider needs to monitor the calcium level in your blood to make sure that it does not become low. Contact a health care provider if you: Have a fever. Have more redness, swelling, or pain around your incision area. Have fluid or blood coming from your incision area. Notice that your incision area feels warm to the touch. Have pus or a bad smell coming from your incision area. Have trouble talking. Have nausea or vomiting for more than 2 days. Get help right away if you: Have trouble breathing. Have trouble swallowing. Develop a rash. Develop a cough that gets worse. Notice that your speech changes, or you have hoarseness that gets worse. Develop numbness, tingling, or muscle spasms in the arms, hands, feet, or face. Summary After the procedure, it is common to feel mild pain in the neck or upper body, especially when swallowing. Take medicines as told by your health care provider. These include pain medicines and thyroid hormones, if required. Follow instructions from your health care provider about how to take care of your incision. Watch for signs of infection. Keep all follow-up visits as told by your health care provider. This is important. Your health care provider needs to monitor the calcium level in your blood to make sure that it does not become low. Get help right away if you develop difficulty breathing, or numbness, tingling, or muscle spasms in the arms, hands, feet, or face. This information is not intended to replace advice given to you by your health care provider. Make sure you discuss any questions you have with your health care provider. Document Released: 03/20/2006 Document Revised: 10/27/2019 Document Reviewed: 07/06/2018 [employer] Patient Education 2020 [employer]. Follow Up Care 03/27/2025 14:04:45 With:JOSE CARLOS BARRIOS MD, [facility] Address: [facility] [address] [place] [id number] [phone] When:05/22/2025 13:20:00 [facility] 05-13-2025 Note Discharge Instructions Thank you for allowing [facility] to assist you with your healthcare needs. The following is important discharge information regarding your hospital visit. Your Care Team RICARDO RUIZ DO Your Diagnosis Attention deficit hyperactivity disorder, inattentive type COPD without exacerbation Epigastric pain GERD (gastroesophageal reflux disease) Glossitis What to do next Scheduled Follow-Up Appointments Appointment Type When With Where Contact Information StatusPC OV Controlled Medication 05/22/2025 10:30 AM EDT RICARDO RUIZ DO [facility] Ric Confirmed RO Follow Up 30 06/15/2025 11:30 AM EDT LAURA CAGE MD [facility] [place] [address] [place] [address]- Confirmed MA Mammogram Screening Left w/ Ab 09/18/2025 09:45 AM EST [facility] [phone] Confirmed HEM ONC OV Follow Up w/CATHY 10/26/2025 10:30 AM LAST TERAN [facility] [employer] CAL[employer]ER [facility]PER[facility] Confirmed Follow Up Appointments Follow Up with JOSE CARLOS BARRIOS MD, [facility] When:05/22/2025 01:20 PM EDT Where:[facility] [address] [place] [address]- [phone] The Following Activity and Diet Have Been Ordered for You Discharge Activity - Ordered -- Lifting Restricted less than 10 pounds, 05/13/25 7:14:00 EDT Discharge Diet - Ordered -- Type of Diet: Regular, 05/13/25 7:14:00 EDT The Following Equipment Has Been Ordered for You No qualifying data available. The Following Treatments Have Been Ordered for You Discharge Labs No qualifying data available. Discharge Radiology No qualifying data available. Other Therapies No qualifying data available. Post Acute Orders No qualifying data available. Someone Will Contact You Regarding These Home Health Referrals No home referrals have been ordered for you. No one will call you. Allergies montelukast(Severe) Tongue swelling, Rash Latex Rash Percocet 5/325 Anxious doxycycline Weakness sulfa drug Diaphoresis, Tremors sulfamethoxazole Diaphoresis, Tremors Medications Please ask your primary doctor or pharmacist before taking any other medication not listed, including over the counter drugs, herbal medications, vitamins and or supplements as they may interact with your home medications. What How Much When Why Instructions Last Dose New calcium carbonate (Os-Ender 500) 1,250 Milligram by mouth Three (3) times a day with meals Unchanged albuterol (albuterol MDI (90 mcg/ inh) CFC free inhalation aerosol) 2 puff(s) by inhalation Every 4 hours as needed for as needed COPD without exacerbation Unchanged ascorbic acid (Vitamin C 1000 mg oral tablet) 1 tab(s) by mouth Every other day Unchanged benzonatate (benzonatate 100 mg oral capsule) 1 cap by mouth Three (3) times a day as needed for as needed for cough Unchanged cephalexin (cephalexin 250 mg oral capsule) 1 cap by mouth Every day Duration: 30 Days Start taking as a maintenance drug once the Macrobid is finished. Unchanged cycloSPORINE ophthalmic (cycloSPORINE 0.05% ophthalmic emulsion) 1 Drops Both eyes Two (2) times a day Unchanged diclofenac topical (diclofenac 1% topical gel) 4 gram(s) Topical Every 8 hours left lateral hip. Unchanged docusate (Colace 100 mg oral capsule) 2 cap by mouth Daily at bedtime as needed for as needed for constipation Unchanged ferrous sulfate (ferrous sulfate 325 mg (65 mg elemental iron) oral tablet) 1 tab(s) by mouth Every other day Unchanged furosemide (furosemide 20 mg oral tablet) 1 tab(s) by mouth Once a day as needed for leg swelling Unchanged hydrALAZINE (hydrALAZINE 25 mg oral tablet) 1 tab(s) by mouth Daily at bedtime as needed for Blood pressure control Take with food. will take for BP>150 Unchanged levothyroxine (Synthroid 50 mcg (0.05 mg) oral tablet) 1 tab(s) by mouth Once a day before a meal Unchanged lidocaine topical (lidocaine 2% mucous membrane solution) 5 Milliliter Topical Four (4) times a day as needed for as needed for mouth sore pain Glossitis swish in mouth x 1 minute then spit out. Unchanged losartan (losartan 50 mg oral tablet) 1 tab(s) by mouth Two (2) times a day Unchanged meclizine (meclizine 25 mg oral tablet) 1 tab(s) by mouth Three (3) times a day as needed for as needed for dizziness Unchanged methylphenidate (methylphenidate 20 mg oral tablet) 1 tab(s) by mouth Two (2) times a day Attention deficit hyperactivity disorder, inattentive type Duration: 30 Days fill Unchanged nebivolol (Bystolic 10 mg oral tablet) 1 tab(s) by mouth Daily at bedtime Unchanged nebivolol (Bystolic 10 mg oral tablet) 2 tab(s) by mouth Once a day (in the morning) Unchanged omeprazole (omeprazole 40 mg oral delayed release capsule) 1 cap by mouth Two (2) times a day GERD (gastroesophageal reflux disease) Epigastric pain replace pantoprazole and metoclopramide Unchanged pregabalin (pregabalin 200 mg oral capsule) 1 cap by mouth Three (3) times a day Unchanged prochlorperazine (prochlorperazine 5 mg oral tablet) 0.5 tab(s) by mouth Two (2) times a day as needed for Nausea What How Much When Comments Stop Taking acetaminophen-hydrocodone ([place] 325-10 mg oral tablet) 1 tab(s) by mouth Every 8 hours as needed for for pain Stop Taking apixaban (Eliquis 5 mg oral tablet) 1 tab(s) by mouth Two (2) times a day Take 1 tablet twice daily Stop Taking ondansetron (ondansetron 4 mg oral tablet) TAKE 1 TABLET BY MOUTH EVERY 8 HOURS NEEDED Please take this list to your next doctor s visit. Bring all medications you take, including over the counter medications, herbals and other supplements with you to your doctor s visit. Patients and families are reminded to discard old lists and to update any records with all medication providers or retail pharmacies. Medication Leaflets calcium carbonate (LUCINA see alicia angeles) Khushboo-Mints, Khushboo-Celestine Cool Action Heartburn Relief, Khushboo-Celestine Extra Strength Heartburn Relief, Calcium Oyster Shell, Ender-Gest, Icar Chewable Calcium, Oyster Ender, Oyster Calcium, Oyster Shell, Oyster Shell Calcium, Oyster Shell Calcium 500, Tums, Tums Antacid Naturals, Tums Chewy Bites, Tums Chewy Bites Ultra Strength, Tums Chewy Delights, Tums E-X, Tums Smoothies, Tums Smoothies Extra Strength, Tums Sugar-Free, Tums Ultra What is the most important information I should know about calcium carbonate? Follow all directions on your medicine label and package. Tell each of your healthcare providers about all your medical conditions, allergies, and all medicines you use. What is calcium carbonate? Calcium is a mineral that is found naturally in foods. Calcium is necessary for many normal functions of the body, especially bone formation and maintenance. Calcium carbonate is used to prevent or to treat a calcium deficiency. There are many brands and forms of calcium carbonate available. Not all brands are listed on this leaflet. Calcium carbonate may also be used for purposes not listed in this medication guide. What should I discuss with my healthcare provider before taking calcium carbonate? Ask a doctor or pharmacist if it is safe for you to take this medicine if you have ever had: kidney disease; kidney stones; cancer; a parathyroid gland disorder; or high levels of calcium in your blood. Ask a doctor before using calcium carbonate if you are or breast-feeding. Your dose needs may be different during or while you are nursing. How should I take calcium carbonate? Use exactly as directed on the label, or as prescribed by your doctor. Do not use in larger or smaller amounts or for longer than recommended. Check the label of your calcium carbonate product to see if it should be taken with or without food. Swallow the calcium carbonate regular tablet with a full glass of water. The chewable tablet should be chewed before you swallow it. Shake the oral suspension (liquid) well just before you measure a dose. Measure liquid medicine with the dosing syringe provided, or with a special dose-measuring spoon or medicine cup. If you do not have a dose-measuring device, ask your pharmacist for one. Use the calcium carbonate powder as directed. Allow the powder to dissolve completely, then consume the mixture. Calcium carbonate may be only part of a complete program of treatment that also includes dietary changes. Learn about the foods that contain calcium. Your calcium carbonate dose may need to be adjusted as you make changes to your diet. Follow your doctor's instructions very closely. Store at room temperature away from moisture and heat. Do not freeze. What happens if I miss a dose? Take the missed dose as soon as you remember. Skip the missed dose if it is almost time for your next scheduled dose. Do not take extra medicine to make up the missed dose. What happens if I overdose? Seek emergency medical attention or call the Poison Help line at . What should I avoid while taking calcium carbonate? Ask a doctor or pharmacist before taking any multivitamins, mineral supplements, or antacids while you are taking calcium carbonate. What are the possible side effects of calcium carbonate? Get emergency medical help if you have signs of an allergic reaction: hives; difficulty breathing; swelling of your face, lips, tongue, or throat. Call your doctor at once if you have: little or no urinating; swelling, rapid weight gain; or high levels of calcium in your blood--nausea, vomiting, constipation, increased thirst or urination, muscle weakness, bone pain, confusion, lack of energy, or feeling tired. Common side effects may include: upset stomach, gas; or constipation. This is not a complete list of side effects and others may occur. Call your doctor for medical advice about side effects. You may report side effects to FDA at 1-059-MHV-1221. What other drugs can affect calcium carbonate? Calcium can make it harder for your body to absorb certain medicines. If you take other medications, take them at least 2 hours before or 4 or 6 hours after you take calcium carbonate. Other drugs may interact with calcium carbonate, including prescription and hbqt-pvn-jfwltah medicines, vitamins, and herbal products. Tell your doctor about all your current medicines and any medicine you start or stop using. Where can I get more information? Your doctor or pharmacist can provide more information about calcium carbonate. Remember, keep this and all other medicines out of the reach of children, never share your medicines with others, and use this medication only for the indication prescribed. Every effort has been made to ensure that the information provided by [employer]. ('[employer]') is accurate, up-to-date, and complete, but no guarantee is made to that effect. Drug information contained herein may be time sensitive. [employer] information has been compiled for use by healthcare practitioners and consumers in the [place] and therefore [employer] does not warrant that uses outside of the [place] are appropriate, unless specifically indicated otherwise. [employer] drug information does not endorse drugs, diagnose patients or recommend therapy. [employer] drug information is an informational resource designed to assist licensed healthcare practitioners in caring for their patients and/or to serve consumers viewing this service as a supplement to, and not a substitute for, the expertise, skill, knowledge and judgment of healthcare practitioners. The absence of a warning for a given drug or drug combination in no way should be construed to indicate that the drug or drug combination is safe, effective or appropriate for any given patient. [employer] does not assume any responsibility for any aspect of healthcare administered with the aid of information [employer] provides. The information contained herein is not intended to cover all possible uses, directions, precautions, warnings, drug interactions, allergic reactions, or adverse effects. If you have questions about the drugs you are taking, check with your doctor, nurse or pharmacist. Copyright [id number] [employer]. Version: 9.. Revision Date: 04/14/2023. Education Materials Thyroidectomy, Care After This sheet gives you information about how to care for yourself after your procedure. Your health care provider may also give you more specific instructions. If you have problems or questions, contact your health care provider. What can I expect after the procedure? After the procedure, it is common to have: Mild pain in the neck or upper body, especially when swallowing. A swollen neck. A sore throat. A weak or hoarse voice. Slight tingling or numbness around your mouth, or in your fingers or toes. This may last for a day or two after surgery. This condition is caused by low levels of calcium. You may be given calcium supplements to treat it. Follow these instructions at home: Medicines Take jpfb-yfq-bvnyzrd and prescription medicines only as told by your health care provider. Do not drive or use heavy machinery while taking prescription pain medicine. Do not take medicines that contain aspirin and ibuprofen until your health care provider says that you can. These medicines can increase your risk of bleeding. Take a thyroid hormone medicine as recommended by your health care provider. You will have to take this medicine for the rest of your life if your entire thyroid was removed. Eating and drinking Start slowly with eating. You may need to have only liquids and soft foods for a few days or as directed by your health care provider. To prevent or treat constipation while you are taking prescription pain medicine, your health care provider may recommend that you: ? Drink enough fluid to keep your urine pale yellow. ? Take niyn-odo-trilkmv or prescription medicines. ? Eat foods that are high in fiber, such as fresh fruits and vegetables, whole grains, and beans. ? Limit foods that are high in fat and processed sugars, such as fried and sweet foods. Incision care Follow instructions from your health care provider about how to take care of your incision. Make sure you: ? Wash your hands with soap and water before you change your bandage (dressing). If soap and water are not available, use hand shampooer. ? Change your dressing as told by your health care provider. ? Leave stitches (sutures), skin glue, or adhesive strips in place. These skin closures may need to stay in place for 2 weeks or longer. If adhesive strip edges start to loosen and curl up, you may trim the loose edges. Do not remove adhesive strips completely unless your health care provider tells you to do that. Check your incision area every day for signs of infection. Check for: ? Redness, swelling, or pain. ? Fluid or blood. ? Warmth. ? Pus or a bad smell. Do not take baths, swim, or use a hot tub until your health care provider approves. Activity For the first 10 days after the procedure or as instructed by your health care provider: ? Do not lift anything that is heavier than 10 lb (4.5 kg). ? Do not jog, swim, or do other strenuous exercises. ? Do not play contact sports. Avoid sitting for a long time without moving. Get up to take short walks every 1 2 hours. This is needed to improve blood flow and breathing. Ask for help if you feel weak or unsteady. Return to your normal activities as told by your health care provider. Ask your health care provider what activities are safe for you. General instructions Do not use any products that contain nicotine or tobacco, such as cigarettes and e-cigarettes. These can delay healing after surgery. If you need help quitting, ask your health care provider. Keep all follow-up visits as told by your health care provider. This is important. Your health care provider needs to monitor the calcium level in your blood to make sure that it does not become low. Contact a health care provider if you: Have a fever. Have more redness, swelling, or pain around your incision area. Have fluid or blood coming from your incision area. Notice that your incision area feels warm to the touch. Have pus or a bad smell coming from your incision area. Have trouble talking. Have nausea or vomiting for more than 2 days. Get help right away if you: Have trouble breathing. Have trouble swallowing. Develop a rash. Develop a cough that gets worse. Notice that your speech changes, or you have hoarseness that gets worse. Develop numbness, tingling, or muscle spasms in the arms, hands, feet, or face. Summary After the procedure, it is common to feel mild pain in the neck or upper body, especially when swallowing. Take medicines as told by your health care provider. These include pain medicines and thyroid hormones, if required. Follow instructions from your health care provider about how to take care of your incision. Watch for signs of infection. Keep all follow-up visits as told by your health care provider. This is important. Your health care provider needs to monitor the calcium level in your blood to make sure that it does not become low. Get help right away if you develop difficulty breathing, or numbness, tingling, or muscle spasms in the arms, hands, feet, or face. This information is not intended to replace advice given to you by your health care provider. Make sure you discuss any questions you have with your health care provider. Document Released: 03/20/2006 Document Revised: 10/27/2019 Document Reviewed: 07/06/2018 Elsevier Patient Education 2020 [employer]. Additional Information VACCINATE! IT SAVES LIVES! Members of the community who have not yet received the COVID-19 vaccine and would like to receive it can visit one of [facility] vaccine clinics. There are many vaccine clinic locations within the [facility]. For locations and available times, please visit [email or web address].coronavirus.[place] .[email or web address] It is important to note that some COVID mobile vaccine clinics are held outdoors and may be canceled in rainy or stormy conditions. To learn more about pediatric vaccinations (ages 5-11), we invite you to visit the [facility] webpage. [email or web address].org/page [email or web address]-Sfflp-Novowwnecfm-Frequently -[email or web address]-Questions.html To learn more about the COVID-19 vaccine, we invite you to visit the CDC website for a list of frequently asked questions.https://www.cdc.gov/coron avirus/2019-ncov/vaccines/faq.html [employer] Patient Portal Access Instructions: Stay connected with your healthcare team and access your personal medical information anytime with the [employer] Patient Portal. Please follow the directions below to create your [employer] account: 1.Access the email account you provided upon registration to the hospital/physician office.2.Look for an invitation email from [facility].3.Open the email and access the invitation link: Accept Invitation to [facility].4.Fill in the required drew to create your account. To access your account, visit [email or web address]. Click the blue button labeled "Access Patient Portal" and then log in with the username and password that you created in the steps above. You will be able to view your test results, lab results, a summary of your visits, upcoming appointments and more. There is also a convenient messaging option where you can send secure messages to your provider. In addition, you will have the ability to download any documents or summaries to your computer and/or send the information securely to a physician. Remember that your healthcare information is confidential, so carefully consider who you will allow to register on the [facility] for access to your information. You can also access the [facility] Patient Portal on the [facility] cathy. Simply click on "Patient Portal" and then log into your account. If you would like to receive a full copy of your medical records, please contact the [facility] Medical Records Department by calling [phone], Thursday through Thursday between 8 a.m. and 4:30 p.m. HOW TO SAFELY DISPOSE OF PRESCRIPTION MEDICATIONS Please use one of the following methods to safely dispose of your unused medications. 1.Use a drug disposal kit: the drug disposal pouch allows you to safely discard your old and unused drugs. Ask your nurse to give you one when you are discharged.2.Visit a local take-back location: Many local pharmacies and police departments have programs that collect old and unwanted prescription drugs. Call your local pharmacy or go to http://Talknote.[employer]/4B9Ku3c to find one close to you.3.Make use of household items: Use cat litter or old coffee grounds to dispose medications if other options are not available. Mix your drugs with these household products, seal them in an airtight container and throw it into the garbage. Call [facility]: [phone] to be sure your drugs can be disposed of in this way. Some medicines may require a different approach.4.Never flush your medications down the toilet. IF YOU HAVE BEEN PRESCRIBED AN OPIOID FOR PAIN If you have been prescribed an opioid (such as hydrocodone, oxycodone or morphine), it is critical to understand the possible side effects and risks of opioid pain medications. Even when taken as directed, opioids can have several side effects including: Tolerance, meaning you might need to take more of a medication for the same pain relief. Nausea, vomiting and/or constipation. Sleepiness, dizziness, dry mouth, confusion, depression or itching. Physical dependence, meaning you have withdrawal symptoms when a medication is stopped, can develop within a few days. KNOW YOUR RESPONSIBILITIES It is important to know exactly how much and how often to take the opioid pain medications you are prescribed. Never take opioids in higher amounts or more often than prescribed. Do not combine opioids with alcohol or other drugs that cause drowsiness, such as benzodiazepines, also known as benzos, including diazepam and alprazolam, muscle relaxants or sleep aids. Never sell or share prescription opioids. This is illegal. Store opioids in a secure place and out of reach of others (including children, family, friends and visitors). The last page of this document has been signed and retained as a CHART COPY. Signatures Patient Education Materials Thyroidectomy, Care After Medication Leaflets [place] 500 My discharge plan and instructions have been reviewed and explained to me and I,CAROL ANN ORELLANA understand my current condition and have read and understand these discharge instructions. I have received a written copy of the plan/instructions. If I have questions, I am aware that I should contact my doctor. 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 05/13/2025 at 7:15 AM Discharge Diagnosis Thyroid carcinoma Hospital Course The patient is a 79-year-old female with a history of thyroid carcinoma she underwent a total thyroidectomy by Dr. Barrios yesterday and tolerated the surgery well. She was transferred to the regular floor postop and had an uneventful postop course. Allergies montelukast(Severe) Tongue swelling, Rash Latex Rash Percocet 5/325 Anxious doxycycline Weakness sulfa drug Diaphoresis, Tremors sulfamethoxazole Diaphoresis, Tremors Procedures Total thyroidectomy Consults No qualifying data available. Imaging Results and Diagnostics Ionized calcium results appreciated Objective Vitals and Measurements T: 36.8 C (Oral) TMIN: 36 C (Temporal Artery) TMAX: 36.9 C (Oral) HR: 55 RR: 18 BP: 121/67 SpO2: 100% HT: 152.4 cm WT: 67.3 kg BMI: 28.98 Weight Dosing Weight: 67.3 kg (05/12/25) Dosing Weight: 67.3 kg (05/12/25) Admission Date 05/12/2025 Discharge Date 05/13/2025 Patient Instructions The patient is doing well postop day 1 and is ready for discharge. Her drain was removed after having little output. She has follow-up with Dr. Barrios in a week. We discussed ambulation and no heavy lifting as her only limitation. Her ionized calcium was minimally low this morning she will take calcium carbonate as Dr. Barrios has arranged for her. She has pain control available as well. Medications New Prescription calcium carbonate (Os-Ender 500)1,250 Milligram by mouth three (3) times a day with meals. Unchanged albuterol (albuterol MDI (90 mcg/inh) CFC free inhalation aerosol)2 puff(s) by inhalation every 4 hours as needed. Refills: 2. ascorbic acid (Vitamin C 1000 mg oral tablet)1 tab(s) by mouth every other day. benzonatate (benzonatate 100 mg oral capsule)1 cap by mouth three (3) times a day as needed as needed for cough. cephalexin (cephalexin 250 mg oral capsule)1 cap by mouth every day for 30 Days. Start taking as a maintenance drug once the Macrobid is finished.. Refills: 2. cycloSPORINE ophthalmic (cycloSPORINE 0.05% ophthalmic emulsion)1 Drops Both eyes two (2) times a day. diclofenac topical (diclofenac 1% topical gel)4 gram(s) Topical every 8 hours. left lateral hip.. Refills: 0. docusate (Colace 100 mg oral capsule)2 cap by mouth daily at bedtime as needed as needed for constipation. ferrous sulfate (ferrous sulfate 325 mg (65 mg elemental iron) oral tablet)1 tab(s) by mouth every other day. furosemide (furosemide 20 mg oral tablet)1 tab(s) by mouth once a day as needed leg swelling. hydrALAZINE (hydrALAZINE 25 mg oral tablet)1 tab(s) by mouth daily at bedtime as needed Blood pressure control. Take with food. will take for BP>150. levothyroxine (Synthroid 50 mcg (0.05 mg) oral tablet)1 tab(s) by mouth once a day before a meal. Refills: 3. lidocaine topical (lidocaine 2% mucous membrane solution)5 Milliliter Topical four (4) times a day as needed as needed for mouth sore pain. swish in mouth x 1 minute then spit out.. Refills: 0. losartan (losartan 50 mg oral tablet)1 tab(s) by mouth two (2) times a day. Refills: 11. meclizine (meclizine 25 mg oral tablet)1 tab(s) by mouth three (3) times a day as needed as needed for dizziness. Refills: 0. methylphenidate (methylphenidate 20 mg oral tablet)1 tab(s) by mouth two (2) times a day for 30 Days. fill 04/19/25. Refills: 0. nebivolol (Bystolic 10 mg oral tablet)1 tab(s) by mouth daily at bedtime. nebivolol (Bystolic 10 mg oral tablet)2 tab(s) by mouth once a day (in the morning). omeprazole (omeprazole 40 mg oral delayed release capsule)1 cap by mouth two (2) times a day. replace pantoprazole and metoclopramide. Refills: 1. pregabalin (pregabalin 200 mg oral capsule)1 cap by mouth three (3) times a day. prochlorperazine (prochlorperazine 5 mg oral tablet)0.5 tab(s) by mouth two (2) times a day as needed Nausea. Discontinued acetaminophen-hydrocodone ([place] 325-10 mg oral tablet)1 tab(s) by mouth every 8 hours as needed for pain. apixaban (Eliquis 5 mg oral tablet)1 tab(s) by mouth two (2) times a day. Take 1 tablet twice daily. Refills: 11. ondansetron (ondansetron 4 mg oral tablet)TAKE 1 TABLET BY MOUTH EVERY 8 HOURS NEEDED. Follow Up Appointments Next week with Dr. Barrios Follow Up Labs/Studies Discharge Labs No Follow-up Labs Discharge Studies No Follow-up Studies Discharge Diet Discharge Diet - Ordered -- Type of Diet: Regular, 05/13/25 7:14:00 EDT Discharge Activity Discharge Activity - Ordered -- Lifting Restricted less than 10 pounds, 05/13/25 7:14:00 EDT Condition on Discharge Stable Readmission Risk/Palliative Score No qualifying data available. Discharge Disposition Home Digitally Signed by WERNER YOUNG MD on 05/13/2025 07:22 AM [facility] 05-12-2025 Respiratory therapy Hospital Progress note Respiratory Therapy Evaluation Entered On: 05/12/2025 23:19 EDT Performed On: 05/12/2025 23:19 EDT by Leatha Chance RRT Respiratory Therapy Evaluation Pulmonary Status : Chronic pulmonary disease Surgical Status : General surgery Chest X-Ray : Clear/none available/older than 3 days Respiratory Pattern (RT) : RR 10-20 BPM, Regular pattern Breath Sounds (RT) : Clear to auscultation Cough (RT) : Strong, non-productive Level of Activity : Ambulatory with assistance Mental Status : Alert, oriented and cooperative Respiratory Therapy Evaluation Score : 5 RT Evaluation Steps : Patient Interview completed Respiratory Evaluation Triage Score : (0-5) Freq: Q4RT prn RT Assessment [Frequency/Schedule] : Triage score 0-5, modify scheduled medications to Q4hRT PRN Leatha Chance RRT - 05/12/2025 23:19 EDT Digitally Signed by Leatha Chance RRT on 05/12/2025 11:19 PM [facility] 05-12-2025 Anesthesiology Consult note Patient: CAROL ANN ORELLANA Age: 79 years Sex: Female : 1945 Associated Diagnoses: None Author: JONG SPENCER DO Postoperative Information Post Operative Info: Post op day: Post Anesthesia Care Unit. Patient location: PACU. Assessment Postanesthesia assessment Vitals. Mental status: at preoperative baseline. Respiratory function: respirations are non-labored. Respiratory support: none. CV function: stable. Cardiovascular support: none. Pain: satisfactory. Nausea status: satisfactory. Postoperative hydration status: within normal limits. Notes: Patient sufficiently recovered from anesthesia to participate in the evaluation. No follow-up needed. No post-anesthesia complications.. Digitally Signed by JONG SPENCER DO on 05/12/2025 02:45 PM [facility] 05-12-2025 History and physical note Date of Service 05/12/25 History and Physical Update I have examined the patient; reviewed the History and Physical and there are no changes to the History and Physical unless noted below. Digitally Signed by JOSE CARLOS BARRIOS MD on 05/12/2025 09:31 AM [facility] 05-12-2025 Anesthesiology Consult note Patient: CAROL ANN ORELLANA Age: 79 years Sex: Female : 1945 Associated Diagnoses: None Author: YUDI STREET MD Preoperative Information Time of last food or liquid consumption: 05/11/2025 18:00:00 Anesthesia history Patient's history: negative. Family's history: negative. Health Status Allergies: Allergic Reactions (All) Severe Montelukast- Rash and tongue swelling. Severity Not Documented Latex- Rash. Percocet 5/325- Anxious. Sulfa drug- Diaphoresis and tremors. Sulfamethoxazole- Diaphoresis and tremors. Nonallergic Reactions (All) Severity Not Documented Doxycycline- Weakness., Allergies (8) ActiveSeverityReaction montelukastSevereRash, Tongue swelling sulfa drugTremors doxycyclineWeakness LatexRash Percocet 5/325Anxious sulfamethoxazoleTremors sulfa drugDiaphoresis sulfamethoxazoleDiaphoresis Current medications: (Selected) Inpatient Medications Ordered Kefzol: 2 gram(s), 20 mL, 240 mL/hr, IV Push (INT), PREOP pharm LR 1,000 mL: 20 mL/hr, Intravenous LR 1,000 mL: 20 mL/hr, Intravenous lidocaine 1% preservative-free injectable solution: 2.5 mg, 0.25 mL, Intradermal, Once Prescriptions Prescribed Eliquis 5 mg oral tablet: 5 mg, 1 tab(s), Oral, BID, Take 1 tablet twice daily, 60 tab(s), 11 Refill(s) Synthroid 50 mcg (0.05 mg) oral tablet: 50 mcg, 1 tab(s), Oral, qDayAC, 90 tab(s), 3 Refill(s) albuterol MDI (90 mcg/inh) CFC free inhalation aerosol: 2 puff(s), Inhalation, q4h, PRN: as needed, 1 EA, 2 Refill(s) cephalexin 250 mg oral capsule: 250 mg, 1 cap(s), Oral, Daily, for 30 day(s), Start taking as a maintenance drug once the Macrobid is finished., 30 cap(s), 2 Refill(s) diclofenac 1% topical gel: 4 gram(s), Topical, q8h, left lateral hip., 100 gram(s), 0 Refill(s) lidocaine 2% mucous membrane solution: 0.1 gram(s), 5 mL, Topical, QID, swish in mouth x 1 minute then spit out., PRN: as needed for mouth sore pain, 100 mL, 0 Refill(s) losartan 50 mg oral tablet: 50 mg, 1 tab(s), Oral, BID, 60 tab(s), 11 Refill(s) meclizine 25 mg oral tablet: 25 mg, 1 tab(s), Oral, TID, PRN: as needed for dizziness, 30 tab(s), 0 Refill(s) methylphenidate 20 mg oral tablet: 20 mg, 1 tab(s), Oral, BID, for 30 day(s), fill 04/19/25, 60 tab(s), 0 Refill(s) omeprazole 40 mg oral delayed release capsule: 40 mg, 1 cap(s), Oral, BID, replace pantoprazole and metoclopramide, 180 cap(s), 1 Refill(s) Documented Medications Documented Bystolic 10 mg oral tablet: 10 mg, 1 tab(s), Oral, qHS, 0 Refill(s) Bystolic 10 mg oral tablet: 20 mg, 2 tab(s), Oral, qAM, 30 tab(s), 0 Refill(s) Colace 100 mg oral capsule: 200 mg, 2 cap(s), Oral, qHS, PRN: as needed for constipation, 0 Refill(s) [place] 325-10 mg oral tablet: 1 tab(s), Oral, q8h, PRN: for pain, 0 Refill(s) Vitamin C 1000 mg oral tablet: 1,000 mg, 1 tab(s), Oral, Every other day, 30 tab(s), 0 Refill(s) benzonatate 100 mg oral capsule: 100 mg, 1 cap(s), Oral, TID, PRN: as needed for cough, 0 Refill(s) cycloSPORINE 0.05% ophthalmic emulsion: 1 drop(s), Eyes, both, BID, 30 EA, 0 Refill(s) ferrous sulfate 325 mg (65 mg elemental iron) oral tablet: 325 mg, 1 tab(s), Oral, Every other day, 1,000 tab(s), 0 Refill(s) furosemide 20 mg oral tablet: 20 mg, 1 tab(s), Oral, qDay, PRN: leg swelling, 90 tab(s), 0 Refill(s) hydrALAZINE 25 mg oral tablet: 25 mg, 1 tab(s), Oral, qHS, Take with food. will take for BP>150, PRN: Blood pressure control, 90 tab(s), 0 Refill(s) ondansetron 4 mg oral tablet: TAKE 1 TABLET BY MOUTH EVERY 8 HOURS NEEDED pregabalin 200 mg oral capsule: 200 mg, 1 cap(s), Oral, TID, 0 Refill(s) prochlorperazine 5 mg oral tablet: 2.5 mg, 0.5 tab(s), Oral, BID, PRN: Nausea, 7 tab(s), 0 Refill(s), Medications (4) Active Scheduled: (2) ceFAZolin syringe 2 gram(s) 20 mL, IV Push (INT), PREOP pharm lidocaine 1% (MPF) 2 mL vial pf 2.5 mg 0.25 mL, Intradermal, Once Continuous: (2) Lactated Ringers 1,000 mL 1,000 mL, Intravenous, 20 mL/hr Lactated Ringers 1,000 mL 1,000 mL, Intravenous, 20 mL/hr PRN: (0) Problem list: Medical Hypertension / SNOMED CT 6595715262 / Confirmed Hypothyroid / SNOMED CT 74905340 / Confirmed Fibromyalgia / SNOMED CT 24405735 / Confirmed Anxiety / SNOMED CT 96492572 / Confirmed Insomnia / SNOMED CT 280431773 / Confirmed GERD (gastroesophageal reflux disease) / SNOMED CT 800588753 / Confirmed Constipation / SNOMED CT 75444583 / Confirmed Vitamin D deficiency / SNOMED CT 69310059 / Confirmed Attention deficit hyperactivity disorder, inattentive type / SNOMED CT 58954316 / Confirmed Swelling of lower extremity / SNOMED CT 2580384987 / Confirmed History of pulmonary embolism / SNOMED CT 383034112 / Confirmed Migraine without status migrainosus, not intractable / SNOMED CT 49279631 / Confirmed Lymphedema of right lower extremity / SNOMED CT 8813713106 / Confirmed Lymphedema of right arm / SNOMED CT 5545890089 / Confirmed Spinal stenosis of lumbar region / SNOMED CT 12615231 / Confirmed Long-term use of high-risk medication / SNOMED CT 345602481 / Confirmed COPD without exacerbation / SNOMED CT 87357792 / Confirmed Lethargy / SNOMED CT 799834854 / Confirmed Breast cancer / SNOMED CT 051908353 / Confirmed Renal insufficiency, mild / SNOMED CT 1071227108 / Confirmed Right chest wall recurrence of breast cancer, s/p excision of chest wall lesion January 2022 Dr Avina. Stage X TX N0 M0 G3 ER neg SC neg HER2 neg. 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 No adjuvent tx d/t medical comorbidities. / SNOMED CT 4057630733 / Confirmed Dysuria / SNOMED CT 80459959 / Confirmed Nausea / SNOMED CT 2930353186 / Confirmed Back pain / SNOMED CT 160582345 / Confirmed Neck pain / SNOMED CT 858887209 / Confirmed History of recent fall / SNOMED CT 9990754392 / Confirmed Acute bronchitis / SNOMED CT 91054269 / Confirmed Shortness of breath / SNOMED CT 304644300 / Confirmed Recurrent pulmonary embolism / SNOMED CT 7308476922 / Confirmed Recurrent UTI / SNOMED CT 894439068 / Confirmed Thyroid cancer / SNOMED CT 343700842 / Confirmed, Active Problems (46) Acute bronchitis Anxiety Arthritis Attention deficit hyperactivity disorder, inattentive type Back pain Breast cancer Constipation COPD without exacerbation Dependence on supplemental oxygen when ambulating Difficulty swallowing Dysuria Ex-cigarette smoker Fibromyalgia GERD (gastroesophageal reflux disease) Glasses History of breast cancer History of COVID-19 History of pulmonary embolism History of radiation exposure History of recent fall History of right breast cancer,Stage 1 (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 No adjuvent tx d/t me Hypertension Hypothyroid Insomnia Lethargy Limited joint range of motion (ROM) Long-term use of high-risk medication Lymphedema of right arm Lymphedema of right lower extremity Migraine without status migrainosus, not intractable Nausea Neck pain Neoplasm of uncertain behavior of thyroid gland On anticoagulant therapy Pain management Presence of dental prosthetic device Recurrent pulmonary embolism Recurrent UTI Renal insufficiency, mild Right chest wall recurrence of breast cancer, s/p excision of chest wall lesion January 2022 Dr Avina. S Shortness of breath Spinal stenosis of lumbar region Swelling of lower extremity Thyroid cancer Vitamin D deficiency Wheezes Histories Past Medical History: Active History of pulmonary embolism (390525428): Onset in 2018 at 73 years. Comments: 04/28/2025 EDT 13:57 BRAIN Sykes pt had trauma to leg and had dvt and PE AND A H/O PNEUMONIA Hypertension (9069961491) Hypothyroid (12675576) Fibromyalgia (97989054) Anxiety (07364760) Insomnia (753810257) GERD (gastroesophageal reflux disease) (341691504) Constipation (04161260) Nausea (4769976653) Comments: 04/28/2025 EDT 13:58 BRAIN Sykes DAILY DUE TO VERTIGO Resolved Breast carcinoma (727525084): Onset in 2021 at 77 years. Resolved. Comments: 04/28/2025 EDT 13:55 BRAIN Sykes right Pulmonary embolism ([id number]): Onset in 2018 at 73 years. Resolved. Comments: 04/28/2025 EDT 13:58 BRAIN Sykes PNEUMONIA DVT (deep venous thrombosis) (012150430): Onset in 2017 at 72 years. Resolved. Pneumonia (939679103): Resolved. Bronchitis (56939640): Resolved. Infection of kidney (294488948): Resolved. UTI (urinary tract infection) (430199223): Resolved. UTI symptoms (639450027): Resolved. UTI (urinary tract infection), bacterial (288826524): Resolved. Benzodiazepine dependence (679524117): Resolved. COPD with acute bronchitis (8673692410): Resolved. Family History: Malignant neoplasm Mother () Comments: 04/28/2025 14:12 BRAIN Sykes STOMACH Emphysema Father () Diabetes mellitus Brother (x4, ) Breast cancer Sister () Heart disease Brother (x4, ) Sister () Brother Endocarditis Father () Lymphoma (clinical) Sister () Comments: 07/27/2023 13:23 Juan Ashby STUDIO TECHNICIAN VIDEO OPERATOR Of spine Heart attack Father () Procedure history: History of right mastectomy (4023391748) in 2021 at 77 Years. Cardiac catheterization ([id number]) on 11/25/2021 at 76 Years. Comments: 12/19/2021 11:51 Arely Velez MA (ABR-OE) Mild to moderate CAD Lumpectomy of right breast (2184454424) in 2018 at 73 Years. Breast biopsy and related procedures ([id number]) on 05/05/2018 at 72 Years. Comments: 06/15/2018 8:02 BRAIN Mccallum RIGHT Appendectomy ([id number]) in 2015 at 71 Years. Total knee replacement (4039422217) in 2012 at 68 Years. Comments: 06/15/2018 11:23 BRAIN Mccallum RIGHT Repair of meniscus ([id number]). Comments: 04/28/2025 14:06 BRAIN Sykes RIGHT 06/15/2018 11:19 BRAIN Mccallum X2 Colonoscopy ([id number]). Comments: 06/15/2018 11:19 BRAIN Mccallum X4-5 Esophagogastroduodenoscopy (853533124). Carpal tunnel release (929743973). Comments: 04/28/2025 14:07 BRAIN Sykes LEFT Tumor of bladder neck ([id number]). Comments: 06/15/2018 11:20 BRAIN Mccallum TUMORS INSIDE BLADDER REMOVED, CYSTS AND ADHESIONS REMOVED FROM OUTSIDE OF BLADDER Appendectomy ([id number]). Comments: 06/15/2018 11:22 BRAIN Mccallum WITH ADHESIONS REMOVED FROM ABDOMINAL CAVITY Suspension of bladder (4214484). Hysterectomy (165393023). Cholecystectomy; (08657). Comments: 06/15/2018 11:22 BRAIN Mccallum WITH ADHESIONS REMOVED FROM ABDOMINAL CAVITY Cataracts ([id number]). Comments: 06/15/2018 11:23 BRAIN Mccallum REMOVED BILATERALLY Spinal fusion ([id number]). Comments: 06/15/2018 11:24 BRAIN Mccallum X2- THORACIC AND LUMBAR/SACRUM Hand reconstruction ([id number]). Comments: 06/15/2018 11:26 BRAIN Mccallum RIGHT HAND, USED BONE FROM RIGHT HIP Surgery ([id number]). Comments: 06/15/2018 11:29 BRAIN Mccallum LEFT ARM TENDON REATTACHED. Spinal fusion ([id number]). Comments: 05/06/2022 15:31 Devi Johnson RN 2011 Hand reconstruction ([id number]). Comments: 04/28/2025 14:11 BRAIN Sykes RIGHT Social History: Social & Psychosocial Habits Alcohol 05/12/2025Risk Assessment: Denies Alcohol Use 05/12/2025 Use: Never Employment/School 04/25/2025 Status: Retired Substance Abuse 05/12/2025Risk Assessment: Denies Substance Abuse 05/12/2025 Use: Never Tobacco 05/12/2025 Tobacco Use: Former smoker, quit more Started at age: 13 Years Stopped at age: 38 Years Comment: No Tobacco/Smoke Exposure - 04/01/2019 16:31 - Shana Henao CMA; NO TOBACCO - 07/18/2022 10:22 - Mounika De Home/Environment 05/12/2025 Living situation: Home/Independent Safe place to go: Yes Financial concerns: No Domestic Concerns None Lives In 1st floor bathroom, 1st floor bedroom, Single level home Current Home Treatments Blood Pressure monitoring, Oxygen therapy, WALKER Special Services and Community Resources None Spouse Name JONNA Marital Status of Patient if Patient Independent Adult: Nutrition/Health 05/12/2025 Caffeine intake amount: Coffee and Carbonated beverages 1-2 servings daily 05/12/2025 Type of diet: Low sodium, Regular Caffeine intake amount: Coffee 1 cup Appetite Good Eating Difficulties Swallowing Physical Examination Vital Signs 05/12/2025 7:54 EDT Temperature Temporal Artery 36.1 DegC Peripheral Pulse Rate 52 bpm LOW Respiratory Rate 18 br/min Systolic Blood Pressure Non-Invasive 141 mmHg HI Diastolic Blood Pressure Non-Invasive 69 mmHg Vital Signs (last 24 hrs) Last Charted Temp Uukbzsol30.1 DegC (MAY 12 07:54) SBPH 141 mmHg (MAY 12 07:54) DBP69 mmHg (MAY 12 07:54) Measurements from flowsheet : Measurements 05/12/2025 7:54 EDT Height 152.4 cm Height in inches 60 inch(es) Admission Weight 67.3 kg Weight Lbs 148.1 lb Weight Method Actual [place] Body Weight 45.50 kg Admission Body Mass Index 28.98 m2 Pain assessment: Pain Assessment 05/12/2025 7:54 EDT Primary Pain Intensity 0 Pain Scale Type 0-10 Pain scale . General: Alert and oriented. Airway: Normal temporomandibular joint mobility, Nares patent, Trachea midline. Mallampati classification: III (soft palate, base of uvula visible). Head: Normocephalic, Atraumatic. Dentition Evaluation: No teeth. Respiratory: Lungs are clear to auscultation. Cardiovascular: Normal rate, Regular rhythm. Neurologic: Alert, Oriented. Review / Management Results review: Labs (Last four charted values) Plt 171(MAY 12) PT 12.2(MAY 12) INR 1.0(MAY 12) PTT 30.7(MAY 12) , Lab results 05/12/2025 7:58 EDT SN - Preop - CTm Pt Ready for OR/Proced 05/12/2025 7:58 05/12/2025 7:58 EDT SN - Preop - CTm Pt in SDS Room 05/12/2025 7:50 05/12/2025 7:57 EDT Lactated Ringers Injection Begin Bag 1,000 mL mL 05/12/2025 7:56 EDT Hand Left 05/12/2025 20 gauge Peripheral IV Activity: Insert new site Peripheral IV Dressing Condition: Dry, Intact Peripheral IV Dressing Activity: Applied Peripheral IV Site Condition: No complications Peripheral IV Equipment: Manual Peripheral IV Number of Attempts: 1 05/12/2025 7:54 EDT Height 152.4 cm Height in inches 60 inch(es) Admission Weight 67.3 kg Weight Lbs 148.1 lb Weight Method Actual [place] Body Weight 45.50 kg Admission Body Mass Index 28.98 m2 Temperature Temporal Artery 36.1 DegC Peripheral Pulse Rate 52 bpm LOW Respiratory Rate 18 br/min Systolic Blood Pressure Non-Invasive 141 mmHg HI Diastolic Blood Pressure Non-Invasive 69 mmHg Primary Pain Intensity 0 Pain Scale Type 0-10 Pain scale Heart Rhythm Regular Respirations Unlabored Respiratory Pattern Regular All Lobes Breath Sounds Clear Oxygen Therapy Room air Oxygen Saturation 97 % Abdomen Description Non-distended, Soft Bowel Sounds All Quadrants Present Urinary Elimination Voiding, no difficulties Skin Description [place], Dry Skin Temperature Warm Skin Integrity Intact Mucous Membrane Color [place] Skin Moisture General Dry Neurological Symptoms Patient denies Extremity Movement Equal Characteristics of Speech Clear Level of Consciousness Alert Strength All Extremities Moderate Tone All Extremities Normal Sensation All Extremities Intact Left Lower Extremity Sensation Numbness Right Lower Extremity Sensation Numbness Affect/Behavior Calm, Cooperative Orientation Oriented x 4 Orientation Assessment Oriented x 4 Mobility Assistance Level Minimum assistance Activity Status ADL Awake Standard Safety ID band on, Allergy Band on, Call device within reach, Bed in low position, Wheels locked, Upper/Half-Length side-rails up, Phone within reach, personal items within reach, Bedside Cart Locked, Visitor at bedside, Safety level maintained Demonstrates Correct Call Light Use Yes 05/12/2025 7:52 EDT IV Present Present Allergies Yes Consent Form Signed No Reason Consent Not Signed verifcation Patient Dressed In Hospital gown, No undergarments Pre-op Preparation Dentures, full removed CHG Preoperative Wash/Wipe Night before procedure, Day of procedure, Site specific wipe Preop Nasal Swab Povidone-Iodine CHG Skin Prep No History & Physical On Chart Yes Obstructive Sleep Apnea Assess Completed Yes MRSA/MSSA Protocol No Belongings At Bedside Cell phone, Nitro Man, Dentures, lower, Dentures, upper, Glasses, Other: ids and wigs NPO Status Maintained, confirmed Allergy Band on and Verified Yes Patient ID Band on and Verified Yes Implants Verified Yes Pacemaker/AICD Verified Yes Site Verified by Patient/Family Yes Last Fluid Intake 05/12/2025 5:30 Last Food Intake 05/11/2025 18:00 Last Void 05/12/2025 7:54 05/12/2025 7:51 EDT Designated Person #1 We May Share [facility] Jonna [phone] Designated Person #1 Relationship Spouse Designated Person #2 We May Share IONA Daigle [phone] (daughter) Designated Person #2 Relationship Daughter Privacy Restrictions Requested None Status N/A Sensory Deficits None Sleep Apnea Snore No Sleep Apnea Tired No Sleep Apnea Obstruction Yes Sleep Apnea Pressure Yes Sleep Apnea BMI No Sleep Apnea Age Yes Sleep Apnea Neck No Sleep Apnea Gender No Sleep Apnea Score 3 Diagnosed With Sleep Apnea No Advanced Directives Yes Advance Directive Type [place] Durable Power of Mold Maker Helper for [place], [place] Declaration (Living Will) Advance Directive Location Indicates that Susan has been given copy Infectious Disease Symptoms Patient states no symptoms Infectious Disease Recent Exposure No Alcohol and Drug Use No Employee of Institutional Living No Health Care Employee No History of Exposure to TB No History of Positive Chest X-Ray for TB No History of Positive TB Skin Test No Homeless No Known Immunosuppression No Recent Immigrant No Resident of Institutional Living No Bloody Sputum No Fatigue No Fever No Loss of Appetite No Night Sweats No Persistent Cough > 3 Weeks No Weight Loss No Surgery Scheduled On Date/Time 05/12/2025 9:20 Arrival Time the Day of Surgery 05/12/2025 7:20 Pre-Op Patient Education NPO after midnight, No smoking after midnight, No makeup, No jewelry, Responsible Libertarian, Aware of surgery location, 1 bottle CHG wash with instructions given, Instructed to take ordered medications, Instructed to bring home medications, VTE prevention handout given, SSI prevention handout given, MRSA protocol education provided, Clear liquids until arrival SN - Preprocedure Comments Other: spoke with Jonna Individuals Taught Patient Learning Readiness Willing to learn Barriers to Learning None evident Teaching Method Demonstration, Explanation, Printed materials, Teach-back, Video/Educational TV Preferred Spoken Language Venezuelan Preferred Written Language Venezuelan Teaching Evaluation Verbalizes/Nonverbally indicates understanding Surgical Site Infection Prevention SSI FAQ provided, Hand hygiene Safety Brochure Information Reviewed Yes Susan Welcome Video Viewed No Patient's Current Physicians Patient's Current Physicians History of Malignant Hyperthermia No Discharge To, Anticipated Home with family care Prev Test Positive/Diagnosis w/COVID-19 No Current Quarantine/Isolated any Illness No Any Contact with Sick Animals/Birds No Traveled Anywhere in Last 30 Days No Lost Weight Unintentionally Recently No Eat Poorly Due to Decreased Appetite No Total MST Score 0 N/A Personal Devices, Patient Valuables Dentures, lower, Dentures, upper, Glasses Anesthesia/Transfusions Prior anesthesia, Prior anesthesia reaction Type of Anesthesia Reaction LIMITED ROM WITH NECK, DENIES ANY PROBLEM WITH INTUBATION Admission Note-Nursing Same Day Patient History 05/12/2025 7:47 EDT Platelet 171 10^3/mcL APTT 30.7 seconds Protime 12.2 seconds PT International Ratio 1.0 ratio NA Fibrinogen 420 mg/dL 05/11/2025 13:46 EDT Surgery Scheduled On Date/Time 05/12/2025 9:20 Arrival Time the Day of Surgery 05/12/2025 7:20 Pre-Op Patient Education NPO after midnight, No smoking after midnight, No makeup, No jewelry, Responsible Libertarian, Aware of surgery location, 1 bottle CHG wash with instructions given, Instructed to take ordered medications, Instructed to bring home medications, VTE prevention handout given, SSI prevention handout given, MRSA protocol education provided, Clear liquids until arrival (Modified) SN - Preprocedure Comments Other: spoke with Jonna (Modified) Admission Note-Nursing Patient History PreTest (Modified) 05/11/2025 9:09 EDT History and Physical Scanned . Assessment and Plan [place] Society of Anesthesiologists (ASA) physical status classification: Class III. Anesthetic Preoperative Plan Anesthetic technique: General. Induction: intravenously. Maintenance airway: Oral endotracheal tube. Postoperative pain management: Per surgeon. Risks discussed: nausea, vomiting, headache, sore throat, dental injury, hypotension, allergic reaction, serious complications. Informed consent: signed by patient. Notes: ADD, COPD on 2L O2 PRN, fibromyalgia, Hx of DVT/PE (2016), HTN, hypothyroid, CAD, thyroid neoplasm, GERD is controlled, Hx of right breast CA, Cath (12/03) EF 60-65%, 40% left cirumflex, 65% RCA. Beta Dorian: Beta Dorian Taken Within 24 Hrs: Yes. Digitally Signed by YUDI STREET MD on 05/12/2025 09:08 AM [facility] 05-05-2025 History of Present illness Narrative This video visit was performed via [employer] Video Visit. Patient consented to receive health care services via virtual visit for this encounter Provider Location: [facility] Patient Location: Patient Home or Place of Residence I have communicated my name and active licensure. The patient's identity and physical location were verified at the time of this visit. Either the patient or their legal workforce services representative has been informed of the risks and benefits of -- and alternatives to -- treatment through a remote evaluation and consents to proceed with the evaluation remotely. Chief Complaint: Pain History of Present Illness: Carol Ann Orellana is a 79 year old year old female being seen at [facility] for a evaluation and/or management of her chronic pain. She states that since the last visit symptoms have been stable. She is pending thyroid removal due to malignancy next week at [place]. Her medical history has not changed and she denies any hospital stays or ER visits. Pain Level: 5 Pain Location: (Patient-Rptd) Back-Lower Description: (Patient-Rptd) Aching; Numbness; Pressure Duration Amount of Time: (Patient-Rptd) 3 Duration Units: (Patient-Rptd) Hours Frequency: (Patient-Rptd) Intermittent Intervention/Comfort measure: (Patient-Rptd) Medication; Reposition; Relaxation; Pillow support; Positioning Has the Patient Had 2 Falls in the Last Year or 1 Fall with Injury or Currently Using an Ambulatory Assistive Device (Walker, Cane, Wheelchair, Crutches, etc.): (Patient-Rptd) No The patient denies any bowel or bladder dysfunction. The patient is currently prescribed [place], lyrica and lidocaine patches/cream from our office. The last dose of [place] was taken today. She has stopped the tramadol ER. The medications are partially effective. She denies having any side effects from the medications. PDMP website checked and validated. The OARRS report has been reviewed and is consistent with the patients medical history and medication intake. Last Opioid agreement effective date: 06/03/2024 Last UDS: Reviewed - No inconsistencies noted. 03/02/2025 UDS CONSISTENT 10/18/2024 UDS CONSISTENT 06/08/2024 UDS CONSISTENT 10/22/2023 UDS CONSISTENT 05/15/2023 UDS CONSISTENT Schedule after 930 am [facility] Urine Drug Screen Summary Report Date Value Ref Range Status 03/02/2025 FINAL Final Comment: Opiate Class, MS, Ur RFX Acetaminophen, MS, Ur RFX ToxAssure Flex 23, Ur Test Result Flag Units Drug Present Hydrocodone 2286 ng/mg creat Hydromorphone 445 ng/mg creat Dihydrocodeine 133 ng/mg creat Norhydrocodone 4055 ng/mg creat Sources of hydrocodone include scheduled prescription medications. Hydromorphone, dihydrocodeine and norhydrocodone are expected metabolites of hydrocodone. Hydromorphone and dihydrocodeine are also available as scheduled prescription medications. Acetaminophen PRESENT Test Result Flag Units Ref Range Creatinine 49 mg/dL >=20 Declared Medications: Medication list was not provided. For clinical consultation, please call . [facility] Urine Drug Screen and Benzo Confirm Urine Panel: Lab Results Component Value Date Cannabinoid Quant, Urine <16 10/15/2023 Benzoylecgonine Quant, Urine <24 10/15/2023 6-Acetylmorphine Quant, Urine <5 10/15/2023 Amphetamine Quant, Urine <5 10/15/2023 Methamphetamine Quant, Urine <8 10/15/2023 Buprenorphine Quant, Urine <20 10/15/2023 Norbuprenorphine Quant, Urine <20 10/15/2023 Methadone Quant, Urine <16 10/15/2023 EDDP Quant, Urine <6 10/15/2023 Tramadol Quant, Urine <25 10/15/2023 Desmethyltramadol Quant, Urine <20 10/15/2023 Fentanyl Quant, Urine <6 10/15/2023 Norfentanyl Quant, Urine <6 10/15/2023 Codeine Quant, Urine <11 10/15/2023 Morphine Quant, Urine <10 10/15/2023 Dihydrocodeine Quant, Urine 479 (H) 10/15/2023 Hydrocodone Quant, Urine 1,595 (H) 10/15/2023 Oxycodone Quant, Urine <10 10/15/2023 Hydromorphone Quant, Urine 607 (H) 10/15/2023 Oxymorphone Quant, Urine <5 10/15/2023 Chronic Pain Functional Assessment Tools Pain Disability Index: 03/02/2025 05/03/2025 Pain Disability Index Family/Home Responsibilities: This category includes chores or duties performed around the house (e.g. yard work), errands or favors for other family members (e.g. driving the children to school) 0 No Disability 3 Recreation: This category includes hobbies, sports, and other similar leisure time activities 0 No disability 3 Social Activity: This category refers to activities which involve participation with friends and acquaintances, other than family members. It includes parties, theater, concerts, dinning out, and other social functions 0 No disability 3 Occupation: This category refers to activities that are a part of or directly related to ones' job. This includes non-paying jobs as well, such as that of a housewife or volunteer worker 0 No disability 0 No disability Sexual Behavior: This category refers to the frequency and quality of one's sex life 0 No disability 0 No disability Self Care: This category includes activities which involve personal maintenance and independent daily living (e.g. taking a shower, driving, getting dress, etc) 0 No disability 0 No disability Life Support Activity: This category refers to basic-life supporting behaviors such as eating, sleeping, and breathing 0 No disability 0 No disability PDI Score 0 9 Pain Enjoyment of Life and General Activity Scale (0-10): PEG: A Three-Item Scale Assessing Pain Intensity and Interference What number best describes your pain on average in the past week?: (Patient-Rptd) 6 (05/03/2025 1:30 PM) What number best describes how, during the past week, pain has interfered with your enjoyment of life?: (Patient-Rptd) 3 (05/03/2025 1:30 PM) What number best describes how, during the past week, pain has interfered with your general activity?: (Patient-Rptd) 5 (05/03/2025 1:30 PM) SOAPP: SOAPP QUESTIONS How often do you have mood swings?: 0 - Never (03/02/2025 9:47 AM) How often do you smoke a cigarette within an hour after you wake up?: 0 - Never (03/02/2025 9:47 AM) How often have you taken medication other than the way it was prescribed?: 0 - Never (03/02/2025 9:47 AM) How often have you used illegal drugs (for example, marijuana, cocaine, etc.) in the past five years?: 0 - Never (03/02/2025 9:47 AM) How often, in your lifetime, have you had legal problems or been arrested?: 0 - Never (03/02/2025 9:47 AM) Sum of Questions (> or = 7 is positive): 0 (03/02/2025 9:47 AM) REVIEW OF SYSTEMS: GENERAL: No weight loss or fevers RESPIRATORY: Negative for cough CARDIOVASCULAR: Negative for chest pain GI: No nausea, vomiting, or diarrhea. MUSCULOSKELETAL: back pain and muscle pain PAST MEDICAL HISTORY Diagnosis Date Bladder infection Breast cancer (HCC) GERD (gastroesophageal reflux disease) Kidney stones Leg pain Migraines Neurogenic bladder Osteoarthrosis, unspecified whether generalized or localized, other specified sites Osteoporosis Other and unspecified disc disorder of unspecified region Intervertebral disc disorders DIAMOND (stress urinary incontinence, female) Thyroid disease Urethral hypermobility Urge incontinence Urgency of urination PAST SURGICAL HISTORY Procedure Laterality Date ANESTHESIA TOTAL KNEE REPLACEMENT APPENDECTOMY 08/1961 ARTHROTOMY KNEE W/SYNOVIAL BIOPSY ONLY Semilunar cartilage, knee - right BACK SURGERY HX 2010 BLADDER SURGERY HX 2012 BREAST SURGERY HX Right 2018 breast and 3 lymph nodes removed CARPAL TUNNEL Left 12/1979 CATARACT EXTRACTION HX CATARACT EXTRACTION HX 2009 CHOLECYSTECTOMY ELBOW SURGERY HX Left 1994 EXPLORATORY LAPAROTOMY CELIOTOMY W/WO BIOPSY SPX Laparotomy, exp - lysis of adhesions HAND SURGERY HX Right 1989 KNEE SURGERY HX Right removal of meniscus LX EXCISION OF BLADDER TUMOR 1979, 1983 OOPHORECTOMY PARTIAL/TOTAL UNI/BI Oophorectomy TOTAL ABDOMINAL HYSTERECT W/WO RMVL TUBE OVARY Hysterectomy, TOTAL KNEE REPLACEMENT 2009 FAMILY HISTORY Problem Relation Age of Onset Diabetes Mother Stroke Mother Hypertension Mother Heart Father Hypertension Father Heart disease Brother Diabetes Brother Social History Tobacco Use Smoking status: Former Current packs/day: 0.00 Types: Cigarettes Start date: 1967 Quit date: 1982 Years since quittin.6 Smokeless tobacco: Never Substance Use Topics Alcohol use: No Drug use: No Allergies: Oxycodone-Acetamino* Other: See Comments Cortisone Doxycycline Unknown Iv Dye [Iodinated C* Rash Montelukast Unknown, Rash Oxycodone Unknown Sulfa (Sulfonamide * Latex Rash Current Outpatient Medications Medication Sig HYDROcodone-Acetaminophen (NORCO) 10-325 mg per tablet Take 1 tablet by mouth every 6 hours as needed for pain for up to 30 days. Patient should start on March 10, 2025. HYDROcodone-Acetaminophen (NORCO) 10-325 mg per tablet Take 1 tablet by mouth every 6 hours as needed for pain for up to 30 days. Patient should start on April 09, 2025. pregablin (LYRICA) 200 mg capsule Take 1 capsule by mouth three times a day for 30 days. Patient should start on March 10, 2025. lidocaine (LIDODERM) 5 % Apply 1 patch as directed every 24 hours. lidocaine (XYLOCAINE) 5 % ointment Apply to affected area four times a day as needed (pain). traMADol 100 mg 24 hr tablet Take 1 tablet by mouth once daily for 30 days. Patient should start on January 25, 2025. metoclopramide HCl (REGLAN) 10 mg tablet TAKE 1 TABLET Oral 30 minutes prior to a meal prochlorperazine (COMPAZINE) 5 mg tablet TAKE 1 TABLET BY MOUTH THREE TIMES DAILY NEEDED FOR NAUSEA AND VOMITING ramelteon (ROZEREM) 8 mg tablet take 1 tablet oral at bedtime hydrALAZINE (APRESOLINE) 25 mg tablet Take 25 mg by mouth daily at bedtime. pantoprazole DR (PROTONIX) 40 mg tablet Take 40 mg by mouth two times a day. cycloSPORINE 0.05 % drop Use 1 Drop in both eyes two times a day. apixaban (ELIQUIS) 5 mg tab(s) Take 5 mg by mouth. MEDICATION, NON-DATABASE Apply 1 Each to affected area once daily. Cervical Traction Device losartan (COZAAR) 50 mg tablet 50 mg twice daily. nebivolol (BYSTOLIC) 10 mg tablet Take 10 mg by mouth once daily. ondansetron (ZOFRAN) 4 mg tablet TAKE 1 TABLET BY MOUTH EVERY 6 HOURS NEEDED FOR NAUSEA OR FOR VOMITING omeprazole (PRILOSEC) 20 mg capsule TAKE 1 CAPSULE BY MOUTH DAILY ON AN EMPTY STOMACH QVAR REDIHALER 80 mcg/actuation inhaler INHALE 2 PUFFS BY MOUTH and into the lungs TWICE DAILY aspirin, enteric coated (ASPIRIN, ENTERIC COATED) 81 mg EC tablet 81 mg. albuterol HFA (PROVENTIL HFA, VENTOLIN HFA) 90 mcg/actuation inhaler INHALE 2 PUFFS BY MOUTH and into the lungs FOUR TIMES DAILY NEEDED mv, min #36-iron,carbonyl-FA (GERITOL COMPLETE) 16 mg iron- 0.38 mg tab Geritol Complete 16 mg iron- 0.38 mg tablet furosemide (LASIX) 20 mg tablet Take 20 mg by mouth as needed. iron/vitamin B complex (GERITOL ORAL) Take by mouth. tolterodine ER (DETROL LA) 4 mg 24 hr capsule Take 1 capsule by mouth once daily. fluticasone (FLOVENT) 220 mcg/actuation inhaler flovent hfa 220 mcg/act aero methylphenidate (RITALIN) 20 mg tablet Take 20 mg by mouth twice daily. levothyroxine (SYNTHROID) 50 mcg tablet Take 50 mcg by mouth daily before breakfast. ergocalciferol 50,000 unit capsule (VITAMIN D2, DRISDOL) Take 50,000 Units by mouth once each week. meclizine (ANTIVERT) 25 mg tab Take 25 mg by mouth as needed. For dizziness No current facility-administered medications for this visit. PHYSICAL EXAMINATION: There were no vitals taken for this visit. GENERAL: alert and appropriate, in no distress and well-hydrated, well nourished HEAD: normocephalic, no abnormality or lesion noted RESPIRATORY: breathing non-labored NEUROLOGIC: no obvious deficit ASSESSMENT: Patient is stable. Chronic pain is persistent. Medications are helping Carol Ann Orellana to have an improved quality of life. Patient compliance with Opioid Contract: patient is compliant Encounter Diagnosis ICD-10-CM 1. Other chronic pain G89.29 2. 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 Neck pain M54.2 5. Lumbar radiculopathy M54.16 6. Chronic left shoulder pain M25.512 G89.29 PLAN: She has stopped the xanax. She is having difficulty sleeping since it was stopped. The patient understands the goal of our treatment is a reduction in pain and/or an improved level of functioning with activities of daily living. If at any time the patient does not feel the medications are helping them to achieve these goals, the medications may be discontinued. The patient reports a reduction in pain and/or an improved level of functioning with activities of daily living, denies any significant adverse effects, is compliant with the pain management agreement and there are no signs of medication misuse, abuse or diversion; therefore, the medications will be continued. Continue [place] A prescription for narcan (naloxone) has been offered to the patient. Continue Lyrica - Continue Lidocaine ointment/patches Continue OTC stool softeners and Colace Pt is declining procedures at this time Continue care with PCP and specialists She is pending thyroid removal next week. We recommend weaning down or off your pain medications prior to surgery. Your surgeon will then manage your post-op pain. Follow up in 3 months Zoila Valiente APRN.CNP documented in this encounter [facility] 05-05-2025 Note HNO ID: [id number] Author: ZOILA VALIENTE APRN.CNP Service: ? Author Type: Nurse Practitioner Type: Progress Notes Filed: 05/05/2025 13:45 Note Text: This video visit was performed via [employer] Video Visit. Patient consented to receive health care services via virtual visit for this encounter Provider Location: [facility] Patient Location: Patient Home or Place of Residence I have communicated my name and active licensure. The patient's identity and physical location were verified at the time of this visit. Either the patient or their legal workforce services representative has been informed of the risks and benefits of -- and alternatives to -- treatment through a remote evaluation and consents to proceed with the evaluation remotely. Chief Complaint: Pain History of Present Illness: Carol Ann Orellana is a 79 year old year old female being seen at [facility] for a evaluation and/or management of her chronic pain. She states that since the last visit symptoms have been stable. She is pending thyroid removal due to malignancy next week at [facility]. Her medical history has not changed and she denies any hospital stays or ER visits. Pain Level: 5 Pain Location: (Patient-Rptd) Back-Lower Description: (Patient-Rptd) Aching; Numbness; Pressure Duration Amount of Time: (Patient-Rptd) 3 Duration Units: (Patient-Rptd) Hours Frequency: (Patient-Rptd) Intermittent Intervention/Comfort measure: (Patient-Rptd) Medication; Reposition; Relaxation; Pillow support; Positioning Has the Patient Had 2 Falls in the Last Year or 1 Fall with Injury or Currently Using an Ambulatory Assistive Device (Walker, Cane, Wheelchair, Crutches, etc.): (Patient-Rptd) No The patient denies any bowel or bladder dysfunction. The patient is currently prescribed [place], lyrica and lidocaine patches/cream from our office. The last dose of [place] was taken today. She has stopped the tramadol ER. The medications are partially effective. She denies having any side effects from the medications. PDMP website checked and validated. The OARRS report has been reviewed and is consistent with the patients medical history and medication intake. Last Opioid agreement effective date: 06/03/2024 Last UDS: Reviewed - No inconsistencies noted. 03/02/2025 UDS CONSISTENT 10/18/2024 UDS CONSISTENT 06/08/2024 UDS CONSISTENT 10/22/2023 UDS CONSISTENT 05/15/2023 UDS CONSISTENT Schedule after 930 am [facility] Urine Drug Screen Summary Report Date Value Ref Range Status 03/02/2025 FINAL Final Comment: Opiate Class, MS, Ur RFX Acetaminophen, MS, Ur RFX ToxAssure Flex 23, Ur Test Result Flag Units Drug Present Hydrocodone 2286 ng/mg creat Hydromorphone 445 ng/mg creat Dihydrocodeine 133 ng/mg creat Norhydrocodone 4055 ng/mg creat Sources of hydrocodone include scheduled prescription medications. Hydromorphone, dihydrocodeine and norhydrocodone are expected metabolites of hydrocodone. Hydromorphone and dihydrocodeine are also available as scheduled prescription medications. Acetaminophen PRESENT Test Result Flag Units Ref Range Creatinine 49 mg/dL >=20 Declared Medications: Medication list was not provided. For clinical consultation, please call . [facility] Urine Drug Screen and Benzo Confirm Urine Panel: Lab Results Component Value Date Cannabinoid Quant, Urine <16 10/15/2023 Benzoylecgonine Quant, Urine <24 10/15/2023 6-Acetylmorphine Quant, Urine <5 10/15/2023 Amphetamine Quant, Urine <5 10/15/2023 Methamphetamine Quant, Urine <8 10/15/2023 Buprenorphine Quant, Urine <20 10/15/2023 Norbuprenorphine Quant, Urine <20 10/15/2023 Methadone Quant, Urine <16 10/15/2023 EDDP Quant, Urine <6 10/15/2023 Tramadol Quant, Urine <25 10/15/2023 Desmethyltramadol Quant, Urine <20 10/15/2023 Fentanyl Quant, Urine <6 10/15/2023 Norfentanyl Quant, Urine <6 10/15/2023 Codeine Quant, Urine <11 10/15/2023 Morphine Quant, Urine <10 10/15/2023 Dihydrocodeine Quant, Urine 479 (H) 10/15/2023 Hydrocodone Quant, Urine 1,595 (H) 10/15/2023 Oxycodone Quant, Urine <10 10/15/2023 Hydromorphone Quant, Urine 607 (H) 10/15/2023 Oxymorphone Quant, Urine <5 10/15/2023 Chronic Pain Functional Assessment Tools Pain Disability Index: 03/02/2025 05/03/2025 Pain Disability Index Family/Home Responsibilities: This category includes chores or duties performed around the hous (more content not included)... [facility] 05-04-2025 Instructions Zoila Valiente APRN.CNP - 05/04/2025 9:20 AM EDT She has stopped the xanax. Despite its legality, THC containing products and CBD products that may contain THC are not to be used while being prescribed pain medications. If your drug screen contains any THC your medication will be discontinued. Continue [place] A prescription for narcan (naloxone) has been offered to the patient. Continue Lyrica - Continue Lidocaine ointment/patches Continue OTC stool softeners and Colace Pt is declining procedures at this time Continue care with PCP and specialists She is pending thyroid removal next week. We recommend weaning down or off your pain medications prior to surgery. Your surgeon will then manage your post-op pain. Follow up in 3 months documented in this encounter [facility] 04-28-2025 Note Exam Date Time Procedure Performing Provider Status 04/28/25 3:04 PM XR Chest 2 Views JIMMY ROSEN [place] (Verified) [id number] ORIGINAL EXAMINATION: TWO XRAY VIEWS OF THE CHEST TECHNIQUE: CHEST PA and LATERAL COMPARISON: 05/06/2022, chest CT 01/02/2025 HISTORY: ORDERING SYSTEM PROVIDED HISTORY: Reason for Exam: COPD, thyroid cancer, preoperative FINDINGS: The heart is normal in size. The mediastinal silhouette is unremarkable. Atherosclerosis of the aorta. No consolidation. No vascular congestion. Minimal left basilar atelectasis. No pleural effusion or pneumothorax. No aggressive osseous lesions. Significant S curve of the spine. Surgical clips along the right chest wall. Partially visualized spinal fusion hardware in the lumbar spine. IMPRESSION: No acute radiographic finding. I have personally reviewed the images of this examination and agree with the resident's findings and interpretation. Interpreted by: Jimmy Rosen DO Preliminary Report By: Clay Carl Electronically signed By Jimmy Rosen DO Dictated Date: 04/28/2025 3:17:13 PM Prelim Date: 04/28/2025 3:54:34 PM Sign Date: 04/28/2025 3:54:34 PM Ordering [id number] Evaluation + Plan noteExtracted from: Title:Clinical Document Author:VAUGHN STEELE Date:03/13/25 [place] ADMISSION HISTORY AN D PHYSICIAL CHIEF COMPLAINT: HISTORY OF PRESENT ILLNESS: REVIEW OF SYSTEMS: ACTIVE PROBLEMS: (35) Acute bronchitis (69802427) Anxiety (25957773) Attention deficit hyperactivity disorder, inattentive type (75690840) Back pain (176138390) Breast cancer (239042775) Constipation (11865972) COPD without exacerbation (35990373) Dysuria (34212508) Fibromyalgia (17562893) GERD (gastroesophageal reflux disease) (913101875) History of breast cancer (1168338201) History of pulmonary embolism (277930190) History of recent fall (8329114919) History of right breast cancer,Stage 1 (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 No adjuvent tx d/t medical comorbidities. (2573494798) Hypertension (7264484690) Hypothyroid (62583850) Insomnia (341014364) Lethargy (188705691) Long-term use of high-risk medication (582687174) Lymphedema of right arm (3589576243) Lymphedema of right lower extremity (1870080446) Migraine without status migrainosus, not intractable (01139276) Nausea (2767761218) Neck pain (365735734) Recurrent pulmonary embolism (3547725190) Recurrent UTI (016101933) Renal insufficiency, mild (3595667879) Right chest wall recurrence of breast cancer, s/p excision of chest wall lesion January 2022 Dr Avina. Stage X TX N0 M0 G3 ER neg SC neg HER2 neg. RT complete 06/13/22 (650122612) Shortness of breath (326537736) Spinal stenosis of lumbar region (82479536) Swelling of lower extremity (2673479508) UTI (urinary tract infection) (202682556) UTI (urinary tract infection), bacterial (336929912) UTI symptoms (845152782) Vitamin D deficiency (25716953) MEDICATIONS: Active Inpt Meds: None Active PRN Meds: None One Time Meds: None Active IV Meds: Sodium Chloride 0.9% intravenous solution 1,000 mL (Normal Saline 1,000 mL) Start: 03/13/25 9:44:00 EDT, Rate: 50 mL/hr, 03/13/25 9:44:00 EDT ALLERGIES: (6) doxycycline Latex montelukast Percocet 5/325 sulfa drug sulfamethoxazole FAMILY HISTORY: SOCIAL HISTORY: PHYSICAL EXAM: VITALS: DgrqztEyqtZESgfvfYUAaV1NEU0UcihAg(kg) 03/13 09:3136.2--[id number]/30 68.2 24 Hr Tmax: 36.2 at 03/13 09:31 36 Hr Tmax: 36.2 at 03/13 09:31 Vital Signs are the last 5 in the past 48 hours. Weights display the last 5 within 7 days. Initial Wt: 03/13 68.2 kg 150 lb Current Wt: 03/13 68.2 kg 150 lb GENERAL: HEENT: CARDIOVASCULAR: RESPIRATORY: ABDOMEN: EXREMETIES: NEUROLOGICAL: PSYCHIATRIC: LABS: No 36hr Lab Data DIAGNOSTICS: IMPRESSION: PLAN: History and Physical Update I have examined the patient; reviewed the H&P and there are no changes to the H&P unless noted below. Future Appointments Appointment Date:03/27/2025 10:45:00 AM Scheduled Provider:HANANE RODRIGUEZ MD Location:[facility] Appointment Type:[facility]M [facility]C OV Follow Up w/ Appointment Date:05/22/2025 10:30:00 AM Scheduled Provider:RICARDO RUIZ DO Location:P RAS Appointment Type:PC OV Controlled Medication Appointment Date:06/15/2025 11:30:00 AM Scheduled Provider:LAURA CAGE MD Location:RAD ONC CAN Appointment Type:RO Follow Up 30 Future Scheduled Tests Laboratory* TgAb+Thyroglobulin,CURRY or LCMS 01/21/25 * Amylase Level 09/27/24 * Lactate Dehydrogenase 12/21/24 * Lipase Level 09/27/24 * Thyroid Stimulating Hormone 01/21/25 * Free T4 01/07/25 * Complete Blood Count 03/27/25 * Complete Blood Count 12/21/24 * Free T3 01/07/25 * Complete Metabolic Panel 03/27/25 * Complete Metabolic Panel 12/21/24 Radiology* XR Shoulder Minimum 2 Views Right 12/26/24 [facility] 06-30-2025 Hospital Discharge instructions Patient Education 03/13/2025 10:28:44 Monitored Anesthesia Care, Care After Monitored Anesthesia Care, Care After These instructions provide you with information about caring for yourself after your procedure. Your health care provider may also give you more specific instructions. Your treatment has been plannedaccording to current medical practices, but problems sometimes occur. Call your health care provider if you have any problems or questions after your procedure. What can I expect after the procedure? After your procedure, you may: Feel sleepy for several hours. Feel clumsy and have poor balance for several hours. Feel forgetful about what happened after the procedure. Have poor judgment for several hours. Feel nauseous or vomit. Have a sore throat if you had a breathing tube during the procedure. Follow these instructions at home: For at least 24 hours after the procedure: Have a responsible adult stay with you. It is important to have someone help care for you until youare awake and alert. Rest as needed. Do not: ?Participate in activities in which you could fall or become injured. ?Drive. ?Use heavy machinery. ?Drink alcohol. ?Take sleeping pills or medicines that cause drowsiness. ?Make important decisions or sign legal documents. ?Take care of children on your own. Eating and drinking Follow the diet that is recommended by your health care provider. If you vomit, drink water, juice, or soup when you can drink without vomiting. Make sure you have little or no nausea before eating solid foods. General instructions Take ulsz-ncy-dsyeqmr and prescription medicines only as told by your health care provider. If you have sleep apnea, surgery and certain medicines can increase your risk for breathing problems. Follow instructions from your health care provider about wearing your sleep device: ?Anytime you are sleeping, including during daytime naps. ?While taking prescription pain medicines, sleeping medicines, or medicines that make you drowsy. If you smoke, do not smoke without supervision. Keep all follow-up visits as told by your health care provider. This is important. Contact a health care provider if: You keep feeling nauseous or you keep vomiting. You feel light-headed. You develop a rash. You have a fever. Get help right away if: You have trouble breathing. Summary For several hours after your procedure, you may feel sleepy and have poor judgment. Have a responsible adult stay with you for at least 24 hours or until you are awake and alert. This information is not intended to replace advice given to you by your health care provider. Make sure you discuss any questions you have with your health care provider. Document Released: 12/21/2016 Document Revised: 11/29/2018 Document Reviewed: 12/21/2016 [employer] Patient Education 2020 [employer]. 03/13/2025 10:28:41 9 - AO Minor Esophagogastroduodenoscopy (11/25) (CUSTOM) Esophagogastroduodenoscopy This is an endoscopic procedure (a procedure that uses a device like a flexible telescope) that allows your caregiver to view the upper stomach and small bowel. This test allows your caregiver to look at the esophagus. The esophagus carries food from your mouth to your stomach. They can also look at your duodenum. This is the first part of the small intestine that attaches to the stomach. This rubén t is used to detect problems in the bowel such as ulcers and inflammation. MEANING OF TEST Your caregiver will go over the test results with you and discuss the importance and meaning of your results, as well as treatment options and the need for additional tests if necessary. OBTAINING THE TEST RESULTS Your caregiver s office will call you with the results of the test. POST SEDATION INSTRUCTIONS Rest at home today. Since your coordination may be impaired, be cautious on stairways, do not drive any vehicle or operate any heavy machinery, or use any sharp instruments for the remainder of the day. Do not drink any alcoholic beverages or make any major decisions for 24 hours. POST PROCEDURE INSTRUCTIONS Progress slowly with full liquids then resume previous diet and medications. Belching or passing of gas is to be expected. Notify the physician if you have severe chest pain, fever, or if difficulty when swallowing persists. 11/22/13 Custom Follow Up Care 03/09/2025 07:10:07 With:VAUGHN STEELE MD Address: [address] [facility] [facility] [address] [place] [address] [phone] When: Unknown [facility] 06-30-2025 Note Discharge Instructions Thank you for allowing [facility] to assist you with your healthcare needs. The following is importantdischarge information regarding your hospital visit. Your Care Team RICARDO RUIZ DO What to do next Scheduled Follow-Up Appointments Appointment Type When With Where Contact Information StatusHEM ONC OV Follow Up w/ 03/27/2025 10:45 AM EDT HANANE RODRIGUEZ MD [facility] Confirmed PC OV Controlled Medication 05/22/2025 10:30 AM EDT RICARDO RUIZ DO [facility] Confirmed RO Follow Up 30 06/15/2025 11:30 AM EDT LAURA CAGE MD [facility] [address] [address]- Confirmed Follow Up Appointments Follow Up with VAUGHN STEELE MD Where:[address] [facility] [address] [place], [place] [address]- [phone] The Following Activity and Diet Have Been Ordered for You Discharge Activity - Ordered -- NO activity restrictions, 03/13/25 10:25:00 EDT Discharge Diet - Ordered -- Follow the post-operative/post-procedure diet instructions provided by your physician's office.,03/13/25 10:25:00 EDT The Following Equipment Has Been Ordered for You Discharge Home Equipment Discharge Wound Care - Ordered -- Follow the post-operative/post-procedure wound care instructions provided by your physician's office., 03/13/25 10:25:00 EDT Allergies Latex RASH Percocet 5/325 HYPER doxycycline WEAKNESS montelukast "thick tongue", Rash sulfa drug sulfamethoxazole nausea, diaphoresis Medications Please ask your primary doctor or pharmacist before taking any other medication not listed, including over the counter drugs, herbal medications, vitamins and or supplements as they may interact withyour home medications. What How Much When Why Instructions Last Dose Unchanged acetaminophen- hydrocodone ([place] 325-10 mg oral tablet) 1 tab(s) by mouth Every 8 hours as needed for for pain Unchanged albuterol (albuterol MDI (90 mcg/ inh) CFC free inhalation aerosol) 2 puff(s) by inhalation Every 4 hours as needed for as needed COPD without exacerbation Unchanged apixaban (Eliquis 5 mg oral tablet) 1 tab(s) by mouth Two (2) times a day Take 1 tablet twice daily Unchanged ascorbic acid (Vitamin C 1000 mg oral tablet) See instructions Iron deficiency anemia 1 tab(s) Oral every other day with iron Unchanged benzonatate (benzonatate 100 mg oral capsule) 1 cap by mouth Three (3) times a day Unchanged cephalexin (cephalexin 250 mg oral capsule) 1 cap by mouth Every day Duration: 30 Days Start taking as a maintenance drug once the Macrobid is finished. Unchanged cycloSPORINE ophthalmic (cycloSPORINE 0.05% ophthalmic emulsion) 1 Drops Both eyes Two (2) times a day Unchanged diclofenac topical (diclofenac 1% topical gel) 4 gram(s) Topical Every 8 hours left lateral hip. Unchanged docusate (Colace 100 mg oral capsule) 2 cap by mouth Daily at bedtime as needed for as needed for constipation Unchanged ergocalciferol (ergocalciferol 50,000 intl units (1.25 mg) oral capsule) 1 cap by mouth Every week Unchanged erythromycin ophthalmic (erythromycin 0.5% ophthalmic ointment) Unchanged estradiol topical (estradiol 0.1 mg/ g vaginal cream) Unchanged ferrous sulfate (ferrous sulfate 325 mg (65 mg elemental iron) oral delayed release tablet) See instructions Iron deficiency anemia 1 tab(s) Oral every other day with vitamin C and a meal. Unchanged furosemide (furosemide 20 mg oral tablet) 1 tab(s) by mouth Once a day Hypertension Unchanged hydrALAZINE (hydrALAZINE 25 mg oral tablet) 1 tab(s) by mouth Daily at bedtime Hypertension Unchanged levothyroxine (Synthroid 50 mcg (0.05 mg) oral tablet) 1 tab(s) by mouth Once a day before a meal Unchanged lidocaine topical (lidocaine 2% mucous membrane solution) 5 Milliliter Topical Four (4) times a day as needed for as needed for mouth sore pain Glossitis swish in mouth x 1 minute then spit out. Unchanged losartan (losartan 50 mg oral tablet) 1 tab(s) by mouth Two (2) times a day Unchanged lubiprostone (lubiprostone 24 mcg oral capsule) TAKE 1 CAPSULE BY MOUTH TWICE DAILY Unchanged meclizine (meclizine 25 mg oral tablet) 1 tab(s) by mouth Three (3) times a day as needed for as needed for dizziness Unchanged methylphenidate (methylphenidate 20 mg oral tablet) 1 tab(s) by mouth Two (2) times a day Attention deficit hyperactivity disorder, inattentive type Duration: 30 Days fill Unchanged methylphenidate (methylphenidate 20 mg oral tablet) 1 tab(s) by mouth Two (2) times a day Attention deficit hyperactivity disorder, inattentive type Duration: 30 Days fill Unchanged methylphenidate (methylphenidate 20 mg oral tablet) 1 tab(s) by mouth Two (2) times a day Attention deficit hyperactivity disorder, inattentive type Duration: 30 Days fill Unchanged mirtazapine (mirtazapine 15 mg oral tablet) 1 tab(s) by mouth Daily at bedtime replace ramelteon Unchanged nebivolol (Bystolic 10 mg oral tablet) See instructions 2 tabs in AM, 1 in PM Unchanged omeprazole (omeprazole 40 mg oral delayed release capsule) 1 cap by mouth Two (2) times a day GERD (gastroesophageal reflux disease) Epigastric pain replace pantoprazole and metoclopramide Unchanged ondansetron (ondansetron 4 mg oral tablet) TAKE 1 TABLET BY MOUTH EVERY 8 HOURS NEEDED Unchanged pregabalin (pregabalin 200 mg oral capsule) 1 cap by mouth Three (3) times a day Unchanged prochlorperazine (prochlorperazine 5 mg oral tablet) 0.5 tab(s) by mouth Two (2) times a day Unchanged traMADol (traMADol 100 mg oral tablet) 1 tab(s) by mouth Once a day as needed for as needed for pain not to exceed 400 mg/ day Unchanged traZODone (traZODone 100 mg oral tablet) 1 tab(s) by mouth Once a day Please take this list to your next doctor s visit. Bring all medications you take, including over the counter medications, herbals and other supplements with you to your doctor s visit. Patients and families are reminded to discard old lists and to update any records with all medication providers or retail pharmacies. Education Materials Monitored Anesthesia Care, Care After These instructions provide you with information about caring for yourself after your procedure. Your health care provider may also give you more specific instructions. Your treatment has been plannedaccording to current medical practices, but problems sometimes occur. Call your health care provider if you have any problems or questions after your procedure. What can I expect after the procedure? After your procedure, you may: Feel sleepy for several hours. Feel clumsy and have poor balance for several hours. Feel forgetful about what happened after the procedure. Have poor judgment for several hours. Feel nauseous or vomit. Have a sore throat if you had a breathing tube during the procedure. Follow these instructions at home: For at least 24 hours after the procedure: Have a responsible adult stay with you. It is important to have someone help care for you until youare awake and alert. Rest as needed. Do not: ? Participate in activities in which you could fall or become injured. ? Drive. ? Use heavy machinery. ? Drink alcohol. ? Take sleeping pills or medicines that cause drowsiness. ? Make important decisions or sign legal documents. ? Take care of children on your own. Eating and drinking Follow the diet that is recommended by your health care provider. If you vomit, drink water, juice, or soup when you can drink without vomiting. Make sure you have little or no nausea before eating solid foods. General instructions Take wdcp-zci-crjvbux and prescription medicines only as told by your health care provider. If you have sleep apnea, surgery and certain medicines can increase your risk for breathing problems. Follow instructions from your health care provider about wearing your sleep device: ? Anytime you are sleeping, including during daytime naps. ? While taking prescription pain medicines, sleeping medicines, or medicines that make you drowsy. If you smoke, do not smoke without supervision. Keep all follow-up visits as told by your health care provider. This is important. Contact a health care provider if: You keep feeling nauseous or you keep vomiting. You feel light-headed. You develop a rash. You have a fever. Get help right away if: You have trouble breathing. Summary For several hours after your procedure, you may feel sleepy and have poor judgment. Have a responsible adult stay with you for at least 24 hours or until you are awake and alert. This information is not intended to replace advice given to you by your health care provider. Make sure you discuss any questions you have with your health care provider. Document Released: 12/21/2016 Document Revised: 11/29/2018 Document Reviewed: 12/21/2016 [employer] Patient Education 2020 [employer] Esophagogastroduodenoscopy This is an endoscopic procedure (a procedure that uses a device like a flexible telescope) that allows your caregiver to view the upper stomach and small bowel. This test allows your caregiver to look at the esophagus. The esophagus carries food from your mouth to your stomach. They can also look at your duodenum. This is the first part of the small intestine that attaches to the stomach. This rubén t is used to detect problems in the bowel such as ulcers and inflammation. MEANING OF TEST Your caregiver will go over the test results with you and discuss the importance and meaning of your results, as well as treatment options and the need for additional tests if necessary. OBTAINING THE TEST RESULTS Your caregiver s office will call you with the results of the test. POST SEDATION INSTRUCTIONS Rest at home today. Since your coordination may be impaired, be cautious on stairways, do not drive any vehicle or operate any heavy machinery, or use any sharp instruments for the remainder of the day. Do not drink any alcoholic beverages or make any major decisions for 24 hours. POST PROCEDURE INSTRUCTIONS Progress slowly with full liquids then resume previous diet and medications. Belching or passing of gas is to be expected. Notify the physician if you have severe chest pain, fever, or if difficulty when swallowing persists. 11/22/13 Custom Additional Information VACCINATE! IT SAVES LIVES! Members of the community who have not yet received the COVID-19 vaccine and would like to receive it can visit one of [facility] vaccine clinics. There are many vaccine clinic locations within the [facility]. For locations and available times, please visit [email or web address].[place].gov/. It is important to note that some COVID mobile vaccine clinics are held outdoors and may be canceled in rainy or stormy conditions. To learn more about pediatric vaccinations (ages 5-11), we invite you to visit the [facility] webpage. [email or web address] learn more about the COVID-19 vaccine, we invite you to visit the CDC website for a list of frequently asked questions.https://www.cdc.gov/coronavirus/2019-ncov/vaccines/faq.html [facility] Patient Portal Access Instructions: Stay connected with your healthcare team and access your personal medical information anytime with the [facility] Patient Portal. Please follow the directions below to create your [employer] account: 1.Access the email account you provided upon registration to the hospital/physician office.2.Look for an invitation email from [facility].3.Open the email and access the invitation link: AcceptInvitation to [facility].4.Fill in the required drew to create your account. To access your account, visit [email or web address]. Click the blue button labeled "Access Patient Portal" and then log in with the username and password that you created in the steps above. You will be able to view your test results, lab results, a summary of your visits, upcoming appointments and more. There is also a convenient messaging option where you can send secure messages to your p [place] [employer]. In addition, you will have the ability to download any documents or summaries to your computer and/or send the information securely to a physician. Remember that your healthcare information is confidential, so carefully consider who you will allowto register on the [facility] Patient Portal for access to your information. You can also access the [facility] Patient Portal on the [facility] cathy. Simply click on "Patient Portal" and then log into your account. If you would like to receive a full copy of your medical records, please contact the [facility] Medical Records Department by calling [phone], Thursday through Thursday between 8 a.m. and 4:30 p.m. HOW TO SAFELY DISPOSE OF PRESCRIPTION MEDICATIONS Please use one of the following methods to safely dispose of your unused medications. 1.Use a drug disposal kit: the drug disposal pouch allows you to safely discard your old and unuseddrugs. Ask your nurse to give you one when you are discharged.2.Visit a local take-back location: Many local pharmacies and police departments have programs that collect old and unwanted prescriptiondrugs. Call your local pharmacy or go to [email or web address] to find one close to you.3.Make use of household items: Use cat litter or old coffee grounds to dispose medications if other options arenot available. Mix your drugs with these household products, seal them in an airtight container andthrow it into the garbage. Call [facility]: [phone] to be sure your drugs can be disposed of in this way. Some medicines may require a different approach.4.Never flush your medications down the toilet. IF YOU HAVE BEEN PRESCRIBED AN OPIOID FOR PAIN If you have been prescribed an opioid (such as hydrocodone, oxycodone or morphine), it is critical to understand the possible side effects and risks of opioid pain medications. Even when taken as directed, opioids can have several side effects including: Tolerance, meaning you might need to take more of a medication for the same pain relief. Nausea, vomiting and/or constipation. Sleepiness, dizziness, dry mouth, confusion, depression or itching. Physical dependence, meaning you have withdrawal symptoms when a medication is stopped, can develop within a few days. KNOW YOUR RESPONSIBILITIES It is important to know exactly how much and how often to take the opioid pain medications you are prescribed. Never take opioids in higher amounts or more often than prescribed. Do not combine opioids with alcohol or other drugs that cause drowsiness, such as benzodiazepines, also known as benzos, including diazepam and alprazolam, muscle relaxants or sleep aids. Never sell or share prescription opioids. This is illegal. Store opioids in a secure place and out of reach of others (including children, family, friends and visitors). The last page of this document has been signed and retained as a CHART COPY. Signatures Patient Education Materials Monitored Anesthesia Care, Care After 9 - AO Minor Esophagogastroduodenoscopy (11/25) (CUSTOM) Medication Leaflets My discharge plan and instructions have been reviewed and explained to me and I,ORELLANA, OPAL G understand my current condition and have read and understand these discharge instructions. I have received a written copy of the plan/instructions. If I have questions, I am aware that I should contact my doctor. 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 Endoscope was passed directly down to the esophagus there was some tertiary contractions noted the Z-line was 32 cm from the incisors. These insufflated there was some minor erythema in them appeared unremarkable. Reflexion performed in the stomach showed no evidence of a hiatal hernia. These were taken on the gastric mucosa fortesting for H. pylori. A guidewire was placed down the endoscope and placed into the distal portionof the stomach the endoscope was withdrawn off of the guidewire. A 15 mm mm dilator was passed withlittle resistance noted 16 mm dilator was passed then a 17 mm dilator was passed with some resistance noted. Guidewire was withdrawn the endoscope was reintroduced back down to the esophagus there were no breaks in the mucosa patient tolerated the procedure well. Post-Procedure Exam EGD with guidewire dilatation EGD with biopsy of gastric mucosa Findings Tertiary contractions of the esophagus gastritis like picture in the stomach Complications None apparent Total Time Approximately 20 minutes Assessment/Plan Orders: Sodium Chloride 0.9% intravenous solution 1,000 mL(Normal Saline 1,000 mL), 1000 mL, Intravenous Bedrest, 03/13/25 10:25:00 EDT, Strict, continuous, Constant order, Lying on side until alert or asordered Bedrest, 03/13/25 10:25:00 EDT, Strict, continuous, Constant order, Lying on side until alert or asordered Call Parameters, 03/13/25 10:25:00 EDT, Notify for vomiting, severe pain, signs of bleeding, severeabdominal pain, distention or rigidity, Constant order Communication Order (scheduled), 03/13/25 9:31:00 EDT, Once, 03/13/25 9:31:00 EDT, Pathology TissueRequest Communication Order (scheduled), 03/13/25 9:31:00 EDT, Once, 03/13/25 9:31:00 EDT, Urine Test or waiver for women of child bearing age Communication Order (scheduled), 03/13/25 9:31:00 EDT, Once, 03/13/25 9:31:00 EDT, Fasting Blood Sugar priot to procedure of patient is diabetic Diet Order, 03/13/25 10:25:00 EDT, Start Meal: Next meal, Clear Liquid Diet, Post exam or after gagreflex returns if EGD, Constant Order, : N/A, : N/A Discharge, 03/13/25 9:31:00 EDT, Discharged to: Home, when able to ambulate and after being seen byphysician Discharge Activity, NO activity restrictions, 03/13/25 10:25:00 EDT Discharge Diet, Follow the post-operative/post-procedure diet instructions provided by your physician's office., 03/13/25 10:25:00 EDT Discharge Wound Care, Follow the post-operative/post-procedure wound care instructions provided by your physician's office., 03/13/25 10:25:00 EDT Post Procedure Assessment, 03/13/25 10:25:00 EDT, Stop Date 03/13/25 10:25:00 EDT, [facility] in [facility] until Erik Score of 12 or Preprocedure Sign Consent, 03/13/25 9:31:00 EDT, Once, For EGD Vital Signs, 03/13/25 10:25:00 EDT, q15min, 1 hour(s), 03/13/25 11:15:00 EDT Vital Signs, 03/13/25 10:25:00 EDT, q30min, 1 hour(s), 03/13/25 11:00:00 EDT Vital Signs PRN, 03/13/25 10:25:00 EDT, PRN order Follow Up/Recommendation Reevaluate her swallowing if it does not improve consider esophageal manometry testing for H. pylori Digitally Signed by VAUGHN STEELE MD on 03/13/2025 10:30 AM [facility]06-30-2025 Anesthesiology Consult note Patient: CAROL ANN ORELLANA Age: 79 years Sex: Female : 1945 Associated Diagnoses: None Author: MALIKA GROVE Assessment Postanesthesia assessment Vitals: Vital signs from flowsheet : Vital Signs 03/13/2025 10:20 EDT Heart Rate Monitored 60 bpm bpm Respiratory Rate - Anes 14 br/min br/min Systolic Blood Pressure Non-Invasive 137 mmHg mmHg Diastolic Blood Pressure Non-Invasive 67 mmHg mmHg 03/13/2025 10:15 EDT Heart Rate Monitored 59 bpm bpm Respiratory Rate - Anes 9 br/min br/min Systolic Blood Pressure Non-Invasive 148 mmHg mmHg Diastolic Blood Pressure Non-Invasive 61 mmHg mmHg 03/13/2025 10:12 EDT Systolic Blood Pressure Non-Invasive 160 mmHg mmHg Diastolic Blood Pressure Non-Invasive 71 mmHg mmHg 03/13/2025 10:10 EDT Heart Rate Monitored 59 bpm bpm Respiratory Rate - Anes 18 br/min br/min 03/13/2025 9:31 EDT Temperature Temporal Artery 36.2 DegC Peripheral Pulse Rate 54 bpm LOW Respiratory Rate 14 br/min Systolic Blood Pressure Non-Invasive 175 mmHg HI Diastolic Blood Pressure Non-Invasive 72 mmHg , Measurements from flowsheet . Mental status: alert & oriented x 4. Respiratory function: respirations are non-labored. Respiratory support: none. CV function: Normal rate. Cardiovascular support: none. Pain. Nausea status: see nursing documentation of medications. Postoperative hydration status: within normal limits. Digitally Signed by MALIKA GROVE on 03/13/2025 10:24 AM [facility]06-30-2025 Anesthesiology Consult note Patient: CAROL ANN ORELLANA Age: 79 years Sex: Female : 1945 Associated Diagnoses: None Author: MALIKA GROVE Preoperative Information Time of last food or liquid consumption: 03/13/2025 00:00:00 Anesthesia history Patient's history: negative. Family's history: negative. Health Status Allergies: Allergic Reactions (Selected) Severity Not Documented Latex- Rash. Montelukast- Rash and "thick tongue". Percocet 5/325- Hyper. Sulfa drug- No reactions were documented. Sulfamethoxazole- Nausea, diaphoresis. Nonallergic Reactions (Selected) Severity Not Documented Doxycycline- Weakness., Allergies (6) ActiveSeverityReaction sulfa drugNone Documented sulfamethoxazolenausea, diaphoresis doxycyclineWEAKNESS LatexRASH Percocet 5/325HYPER montelukastRash, "thick tongue" Current medications: (Selected) Inpatient Medications Ordered Normal Saline 1,000 mL: 50 mL/hr, Intravenous Prescriptions Prescribed Bystolic 10 mg oral tablet: See Instructions, 2 tabs in AM, 1 in PM, 90 tab(s), 5 Refill(s) Eliquis 5 mg oral tablet: 5 mg, 1 tab(s), Oral, BID, Take 1 tablet twice daily, 60 tab(s), 11 Refill(s) Synthroid 50 mcg (0.05 mg) oral tablet: 50 mcg, 1 tab(s), Oral, qDayAC, 90 tab(s), 3 Refill(s) Vitamin C 1000 mg oral tablet: See Instructions, 1 tab(s) Oral every other day with iron, 15 tab(s), 5 Refill(s) albuterol MDI (90 mcg/inh) CFC free inhalation aerosol: 2 puff(s), Inhalation, q4h, PRN: as needed,1 EA, 2 Refill(s) cephalexin 250 mg oral capsule: 250 mg, 1 cap(s), Oral, Daily, for 30 day(s), Start taking as a maintenance drug once the Macrobid is finished., 30 cap(s), 2 Refill(s) diclofenac 1% topical gel: 4 gram(s), Topical, q8h, left lateral hip., 100 gram(s), 0 Refill(s) ergocalciferol 50,000 intl units (1.25 mg) oral capsule: 50,000 International_Unit, 1 cap(s), Oral,qWeek, 12 cap(s), 1 Refill(s) ferrous sulfate 325 mg (65 mg elemental iron) oral delayed release tablet: See Instructions, 1 tab(s) Oral every other day with vitamin C and a meal., 15 tab(s), 5 Refill(s) furosemide 20 mg oral tablet: 20 mg, 1 tab(s), Oral, qDay, 30 tab(s), 5 Refill(s) hydrALAZINE 25 mg oral tablet: 25 mg, 1 tab(s), Oral, qHS, 30 tab(s), 11 Refill(s) lidocaine 2% mucous membrane solution: 0.1 gram(s), 5 mL, Topical, QID, swish in mouth x 1 minute then spit out., PRN: as needed for mouth sore pain, 100 mL, 0 Refill(s) losartan 50 mg oral tablet: 50 mg, 1 tab(s), Oral, BID, 60 tab(s), 11 Refill(s) meclizine 25 mg oral tablet: 25 mg, 1 tab(s), Oral, TID, PRN: as needed for dizziness, 30 tab(s), 1Refill(s) methylphenidate 20 mg oral tablet: 20 mg, 1 tab(s), Oral, BID, for 30 day(s), fill 02/19/25, 60 tab(s), 0 Refill(s) methylphenidate 20 mg oral tablet: 20 mg, 1 tab(s), Oral, BID, for 30 day(s), fill 03/21/25, 60 tab(s), 0 Refill(s) methylphenidate 20 mg oral tablet: 20 mg, 1 tab(s), Oral, BID, for 30 day(s), fill 04/19/25, 60 tab(s), 0 Refill(s) mirtazapine 15 mg oral tablet: 15 mg, 1 tab(s), Oral, qHS, replace ramelteon, 90 tab(s), 1 Refill(s) omeprazole 40 mg oral delayed release capsule: 40 mg, 1 cap(s), Oral, BID, replace pantoprazole andmetoclopramide, 180 cap(s), 1 Refill(s) Documented Medications Documented Colace 100 mg oral capsule: 200 mg, 2 cap(s), Oral, qHS, PRN: as needed for constipation, 0 Refill(s) [place] 325-10 mg oral tablet: 1 tab(s), Oral, q8h, PRN: for pain, 0 Refill(s) benzonatate 100 mg oral capsule: 100 mg, 1 cap(s), Oral, TID, 0 Refill(s) cycloSPORINE 0.05% ophthalmic emulsion: 1 drop(s), Eyes, both, BID, 30 EA, 0 Refill(s) erythromycin 0.5% ophthalmic ointment: 0 Refill(s) estradiol 0.1 mg/g vaginal cream: 0 Refill(s) lubiprostone 24 mcg oral capsule: TAKE 1 CAPSULE BY MOUTH TWICE DAILY ondansetron 4 mg oral tablet: TAKE 1 TABLET BY MOUTH EVERY 8 HOURS NEEDED pregabalin 200 mg oral capsule: 200 mg, 1 cap(s), Oral, TID, 0 Refill(s) prochlorperazine 5 mg oral tablet: 2.5 mg, 0.5 tab(s), Oral, BID, 7 tab(s), 0 Refill(s) traMADol 100 mg oral tablet: 100 mg, 1 tab(s), Oral, qDay, not to exceed 400 mg/day, PRN: as neededfor pain, 0 Refill(s) traZODone 100 mg oral tablet: 100 mg, 1 tab(s), Oral, qDay, 60 tab(s), 0 Refill(s), Medications (1) Active Scheduled: (0) Continuous: (1) NS (0.9% nacl) 1,000 mL 1,000 mL, Intravenous, 50 mL/hr PRN: (0) Problem list: Medical Acute bronchitis / SNOMED CT 13017501 / Confirmed Anxiety / SNOMED CT 47011381 / Confirmed Attention deficit hyperactivity disorder, inattentive type / SNOMED CT 87564355 / Confirmed Back pain / SNOMED CT 389022183 / Confirmed UTI (urinary tract infection), bacterial / SNOMED CT 998565153 / Confirmed COPD without exacerbation / SNOMED CT 34712119 / Confirmed Constipation / SNOMED CT 53660385 / Confirmed Shortness of breath / SNOMED CT 773498830 / Confirmed Dysuria / SNOMED CT 91685709 / Confirmed Fibromyalgia / SNOMED CT 85658075 / Confirmed GERD (gastroesophageal reflux disease) / SNOMED CT 648058737 / Confirmed Long-term use of high-risk medication / SNOMED CT 099713738 / Confirmed History of pulmonary embolism / SNOMED CT 143404626 / Confirmed History of recent fall / SNOMED CT 1829838922 / Confirmed History of right breast cancer,Stage 1 (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 No adjuvent tx d/t medical comorbidities. / SNOMED CT 4349035715 / Confirmed Hypertension / SNOMED CT 0663703393 / Confirmed Hypothyroid / SNOMED CT 64904452 / Confirmed Insomnia / SNOMED CT 731541010 / Confirmed Lethargy / SNOMED CT 739260767 / Confirmed Lymphedema of right lower extremity / SNOMED CT 2689303634 / Confirmed Lymphedema of right arm / SNOMED CT 8884208838 / Confirmed Breast cancer / SNOMED CT 396740345 / Confirmed Right chest wall recurrence of breast cancer, s/p excision of chest wall lesion January 2022 Dr Avina. Stage X TX N0 M0 G3 ER neg SC neg HER2 neg. RT complete 06/13/22 / SNOMED CT 264956517 / Confirmed Migraine without status migrainosus, not intractable / SNOMED CT 52213781 / Confirmed Nausea / SNOMED CT 9955370529 / Confirmed Neck pain / SNOMED CT 062678443 / Confirmed Recurrent pulmonary embolism / SNOMED CT 6986283675 / Confirmed Recurrent UTI / SNOMED CT 877349405 / Confirmed Renal insufficiency, mild / SNOMED CT 4016369037 / Confirmed Spinal stenosis of lumbar region / SNOMED CT 63711512 / Confirmed Swelling of lower extremity / SNOMED CT 7152884617 / Confirmed UTI symptoms / SNOMED CT 742877698 / Confirmed UTI (urinary tract infection) / SNOMED CT 402492149 / Confirmed Vitamin D deficiency / SNOMED CT 99931693 / Confirmed, Active Problems (35) Acute bronchitis Anxiety Attention deficit hyperactivity disorder, inattentive type Back pain Breast cancer Constipation COPD without exacerbation Dysuria Fibromyalgia GERD (gastroesophageal reflux disease) History of breast cancer History of pulmonary embolism History of recent fall History of right breast cancer,Stage 1 (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 No adjuvent tx d/t me Hypertension Hypothyroid Insomnia Lethargy Long-term use of high-risk medication Lymphedema of right arm Lymphedema of right lower extremity Migraine without status migrainosus, not intractable Nausea Neck pain Recurrent pulmonary embolism Recurrent UTI Renal insufficiency, mild Right chest wall recurrence of breast cancer, s/p excision of chest wall lesion January 2022 Dr Avina. S Shortness of breath Spinal stenosis of lumbar region Swelling of lower extremity UTI (urinary tract infection) UTI (urinary tract infection), bacterial UTI symptoms Vitamin D deficiency Histories Past Medical History: Active Hypertension (1812166369) Hypothyroid (52097859) Fibromyalgia (50616747) Anxiety (13879073) Insomnia (184146362) GERD (gastroesophageal reflux disease) (618854875) Constipation (15320384) Resolved Breast carcinoma (308382388): Resolved. Pulmonary embolism (44926423): Resolved. DVT (deep venous thrombosis) (168892051): Resolved. Pneumonia (173465646): Resolved. Bronchitis (84437377): Resolved. Infection of kidney (043110706): Resolved. Benzodiazepine dependence (035547123): Resolved. COPD with acute bronchitis (1891754392): Resolved. Family History: Malignant neoplasm Mother Emphysema Father Breast cancer Sister Heart disease Brother (x4) Sister Endocarditis Father Lymphoma (clinical) Sister Comments: 07/27/2023 13:23 Juan Ashby STUDIO TECHNICIAN VIDEO OPERATOR Of spine Heart attack Father Procedure history: Cardiac catheterization (05732212) on 11/25/2021 at 76 Years. Comments: 12/19/2021 11:51 Arely Velez MA (ABR-OE) Mild to moderate CAD Mastectomy of right breast (6857701705) on 06/25/2018 at 72 Years. Breast biopsy and related procedures (841733373) on 05/05/2018 at 72 Years. Comments: 06/15/2018 8:02 BRAIN Mccallum RIGHT Repair of meniscus (065873097). Comments: 06/15/2018 11:19 BRAIN Mccallum X2 Colonoscopy (417778840). Comments: 06/15/2018 11:19 BRAIN Mccallum X4-5 Esophagogastroduodenoscopy (991564709). Carpal tunnel release (445276085). Tumor of bladder neck (930991967). Comments: 06/15/2018 11:20 BRAIN Mccallum TUMORS INSIDE BLADDER REMOVED, CYSTS AND ADHESIONS REMOVED FROM OUTSIDE OF BLADDER Appendectomy (092067068). Comments: 06/15/2018 11:22 BRAIN Mccallum WITH ADHESIONS REMOVED FROM ABDOMINAL CAVITY Suspension of bladder (8040754). Hysterectomy (662962928). Cholecystectomy; (06111). Comments: 06/15/2018 11:22 BRAIN Mccallum WITH ADHESIONS REMOVED FROM ABDOMINAL CAVITY Cataracts (1133532929). Comments: 06/15/2018 11:23 BRAIN Mccallum REMOVED BILATERALLY Total knee replacement (6188622730). Comments: 06/15/2018 11:23 BRAIN Mccallum RIGHT Spinal fusion (77809316). Comments: 06/15/2018 11:24 BRAIN Mccallum X2- THORACIC AND LUMBAR/SACRUM Hand reconstruction (905704739). Comments: 06/15/2018 11:26 BRAIN Mccallum RIGHT HAND, USED BONE FROM RIGHT HIP Surgery ([id number]). Comments: 06/15/2018 11:29 BRAIN Mccallum LEFT ARM TENDON REATTACHED. Knee arthroplasty (814084568). Comments: 05/06/2022 15:31 Devi Johnson RN done in 2012 Spinal fusion (45863356). Comments: 05/06/2022 15:31 Devi Johnson RN 2010 Social History: Social & Psychosocial Habits Alcohol 03/13/2025Risk Assessment: Denies Alcohol Use 03/13/2025 Use: Never Employment/School 03/03/2025 Status: Retired Substance Abuse 03/13/2025Risk Assessment: Denies Substance Abuse 03/13/2025 Use: Never Tobacco 03/13/2025 Tobacco Use: Former smoker, quit more Type: Cigarettes 03/13/2025 Tobacco Use: Former smoker, quit more Comment: No Tobacco/Smoke Exposure - 04/01/2019 16:31 - Shana Henao CMA; NO TOBACCO - 07/18/2022 10:22 - Mounika De Home/Environment 03/13/2025 Primary Metal Hardener: Self 03/13/2025 Domestic Concerns None Living situation: Home/Independent Safe place to go: Yes Lives In 1st floor bathroom, 1st floor bedroom Special Services and Community Resources None Financial concerns: No Nutrition/Health 03/13/2025 Type of diet: Low sodium, Regular Appetite Good Eating Difficulties None Caffeine intake amount: Coffee 1 cup 03/13/2025 Caffeine intake amount: Coffee and Carbonated beverages 1-2 servings daily Physical Examination Vital Signs 03/13/2025 9:31 EDT Temperature Temporal Artery 36.2 DegC Peripheral Pulse Rate 54 bpm LOW Respiratory Rate 14 br/min Systolic Blood Pressure Non-Invasive 175 mmHg HI Diastolic Blood Pressure Non-Invasive 72 mmHg Vital Signs (last 24 hrs) Last Charted Temp Lnijrntv39.2 DegC (MAR 13 09:31) SBPH 175 mmHg (MAR 13 09:31) DBP72 mmHg (MAR 13 09:31) BMI29.52 (MAR 13 09:31) Measurements from flowsheet : Measurements 03/13/2025 9:31 EDT Height 152 cm Admission Weight 68.2 kg Weight Method Stated [place] Body Weight 45.14 kg BSA Admission 1.65 Body Mass Index 29.52 kg/m2 Pain assessment: Pain Assessment 03/13/2025 9:31 EDT Primary Pain Intensity 0 Pain Scale Type 0-10 Pain scale . General: Alert and oriented. Airway: Normal temporomandibular joint mobility, Normal mouth. Mallampati classification: III (soft palate, base of uvula visible). Dentition Evaluation: No teeth. Respiratory: Respirations are non-labored. Cardiovascular: Normal rate. Neurologic: Alert, Oriented. Review / Management Results review: No qualifying data available , Lab results 03/13/2025 10:08 EDT SN - GCD - ASA Class 3 03/13/2025 10:07 EDT Crucible History and Physical 03/13/2025 10:05 EDT SN - Proc - Anesthesia Type MAC SN - Proc - EBL 0 mL SN - Proc - Actual Procedure ESOPHAGOGASTRODUODENOSCOPY WITH POSSIBLE DILATION 03/13/2025 10:04 EDT SN - PP - Body Position Lateral Right Side-up Standard Intra-op 03/13/2025 10:04 EDT SN - GCD - Post-operative Diagnosis DYSPHAGIA SN - GCD - Case Level OPD Level 3 03/13/2025 10:04 EDT SN - Cul - Culture Type Tissue in Formalin SN - Cul - Kind Specimen 03/13/2025 10:04 EDT SN - CAt - Case Attendee SN - CAt - Case Attendee SN - CAt - Case Attendee SN - CAt - Case Attendee SN - CAt - Case Attendee SN - CAt - Case Attendee SN - CAt - Case Attendee SN - CAt - Case Attendee SN - CAt - Role Performed Primary Surgeon SN - CAt - Role Performed Spring Floor Service Worker 1 SN - CAt - Role Performed Optical Mechanic Apprentice SN - CAt - Role Performed CURBSTONE SETTER 03/13/2025 9:44 EDT Sodium Chloride 0.9% Begin Bag 1,000 mL mL 03/13/2025 9:42 EDT Hand Left 22 gauge Peripheral IV Activity: Insert new site Peripheral IV Dressing Condition: Clean, Dry, Intact Peripheral IV Dressing Activity: Applied, Transparent dressing Peripheral IV Line Status/Patency: Flushes easily, Continuous infusion Peripheral IV Site Condition: No complications Peripheral IV Equipment: Extension set Peripheral IV Number of Attempts: 1 03/13/2025 9:38 EDT IV Present Present Allergies Yes Anesthesia Extension Set Applied Yes Restaurant Shift Supervisor On Yes Consent Form Signed Yes Patient Dressed In Hospital gown History & Physical Update On Chart Yes History & Physical On Chart Yes Belongings At Bedside Pants, Shirt, Shoes, Socks NPO Status Maintained Allergy Band on and Verified Yes Patient ID Band on and Verified Yes Implants Verified Yes Pacemaker/AICD Verified Yes Site Verified by Patient/Family Yes Anesthesia Consent Signed Yes Last Fluid Intake 03/12/2025 19:00 Last Food Intake 03/12/2025 19:00 03/13/2025 9:31 EDT Designated Person #1 We May Share PHI Jonna [phone] Designated Person #1 Relationship Spouse Designated Person #2 We May Share PHI Oxana [phone] (daughter) Designated Person #2 Relationship Daughter Privacy Restrictions Requested None Height 152 cm Admission Weight 68.2 kg Weight Method Stated [place] Body Weight 45.14 kg BSA Admission 1.65 Body Mass Index 29.52 kg/m2 Temperature Temporal Artery 36.2 DegC Peripheral Pulse Rate 54 bpm LOW Respiratory Rate 14 br/min Systolic Blood Pressure Non-Invasive 175 mmHg HI Diastolic Blood Pressure Non-Invasive 72 mmHg Primary Pain Intensity 0 Pain Scale Type 0-10 Pain scale Respirations Unlabored Respiratory Pattern Regular Oxygen Therapy Room air Oxygen Saturation 95 % Abdomen Description Non-distended Status N/A Skin Description [place], Dry Skin Integrity Intact Neurological Symptoms Patient denies Extremity Movement Equal Characteristics of Speech Clear Level of Consciousness Alert Strength All Extremities Strong Sensation All Extremities Intact Affect/Behavior Appropriate, Calm, Cooperative Orientation Oriented x 4 Sensory Deficits None Infectious Disease Symptoms Patient states no symptoms Infectious Disease Recent Exposure No Alcohol and Drug Use No Employee of Institutional Living No Health Care Employee No History of Exposure to TB No History of Positive Chest X-Ray for TB No History of Positive TB Skin Test No Homeless No Known Immunosuppression No Recent Immigrant No Resident of Institutional Living No Bloody Sputum No Fatigue No Fever No Loss of Appetite No Night Sweats No Persistent Cough > 3 Weeks No Weight Loss No Erik Motor (2) Moves 4 extremities voluntarily or on command Erik Respirations (2) Spontaneous respiration without support, RR > 10 Erik Blood Pressure (2) BP 20% above or below preanesthetic level Erik Pulse (2) Pulse 20% above or below preanesthetic level Erik Oxygen Saturation (2) 94% or more Erik Level of Consciousness (2) Fully awake Erik III Score 12 Orientation Assessment Oriented x 4 Barriers to Learning None evident Teaching Method Explanation, Printed materials Preferred Spoken Language Venezuelan Preferred Written Language Venezuelan Patient's Current Physicians Patient's Current Physicians Discharge To, Anticipated Home independently Assistive Device None Positioning Repositions self Standard Safety ID band on, Allergy Band on, Call device within reach, Bed in low position, Visitorat bedside Prev Test Positive/Diagnosis w/COVID-19 No Current Quarantine/Isolated any Illness No Any Contact with Sick Animals/Birds No Traveled Anywhere in Last 30 Days No N/A Personal Devices, Patient Valuables Dentures, lower, Dentures, upper, Glasses Admission Note-Nursing Procedure/Therapy Intake . Assessment and Plan [place] [employer] Anesthesiologists (ASA) physical status classification: Class III. Anesthetic Preoperative Plan Anesthetic technique: MAC. Informed consent: signed by patient. Digitally Signed by MALIAK GROVE TAPER PRINTED CIRCUIT LAYOUT-CURBSTONE SETTER on 03/13/2025 10:13 AM [facility]06-30-2025 Note [place] ADMISSION HISTORY AND PHYSICIAL CHIEF COMPLAINT: HISTORY OF PRESENT ILLNESS: REVIEW OF SYSTEMS: ACTIVE PROBLEMS: (35) Acute bronchitis (03255758) Anxiety (45207978) Attention deficit hyperactivity disorder, inattentive type (78992294) Back pain (873345972) Breast cancer (467695150) Constipation (25565347) COPD without exacerbation (50002660) Dysuria (69384618) Fibromyalgia (72431110) GERD (gastroesophageal reflux disease) (921154897) History of breast cancer (8636119380) History of pulmonary embolism (620678783) History of recent fall (1722938014) History of right breast cancer,Stage 1 (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 No adjuvent tx d/t medical comorbidities. (8384216304) Hypertension (9733833058) Hypothyroid (46492405) Insomnia (621013171) Lethargy (584247404) Long-term use of high-risk medication (646315209) Lymphedema of right arm (1744757866) Lymphedema of right lower extremity (5645042185) Migraine without status migrainosus, not intractable (65273874) Nausea (5573969156) Neck pain (571288034) Recurrent pulmonary embolism (6814098451) Recurrent UTI (309012590) Renal insufficiency, mild (3262389695) Right chest wall recurrence of breast cancer, s/p excision of chest wall lesion January 2022 Dr Avina. Stage X TX N0 M0 G3 ER neg SC neg HER2 neg. RT complete 06/13/22 (016767061) Shortness of breath (286234378) Spinal stenosis of lumbar region (86377647) Swelling of lower extremity (3829599665) UTI (urinary tract infection) (410547885) UTI (urinary tract infection), bacterial (718228397) UTI symptoms (562402691) Vitamin D deficiency (86891314) MEDICATIONS: Active Inpt Meds: None Active PRN Meds: None One Time Meds: None Active IV Meds: Sodium Chloride 0.9% intravenous solution 1,000 mL (Normal Saline 1,000 mL) Start: 03/13/25 9:44:00EDT, Rate: 50 mL/hr, 03/13/25 9:44:00 EDT ALLERGIES: (6) doxycycline Latex montelukast Percocet 5/325 sulfa drug sulfamethoxazole FAMILY HISTORY: SOCIAL HISTORY: PHYSICAL EXAM: VITALS: [id number](kg) 03/13 09:3136.2--916165FU35/30 68.2 24 Hr Tmax: 36.2 at 03/13 09:31 36 Hr Tmax: 36.2 at 03/13 09:31 Vital Signs are the last 5 in the past 48 hours. Weights display the last 5 within 7 days. Initial Wt: 03/13 68.2 kg 150 lb Current Wt: 03/13 68.2 kg 150 lb GENERAL: HEENT: CARDIOVASCULAR: RESPIRATORY: ABDOMEN: EXREMETIES: NEUROLOGICAL: PSYCHIATRIC: LABS: No 36hr Lab Data DIAGNOSTICS: IMPRESSION: PLAN: History and Physical Update I have examined the patient; reviewed the H&P and there are no changes to the H&P unless noted below. Digitally Signed by VAUGHN STEELE MD on 03/13/2025 10:08 AM [facility]06-24-2025 Progress note* Result Encounter Note - Zoila Valiente APRN.CNP - 03/07/2025 9:01 AM EDT UDS CONSISTENT [facility]06-24-2025 Miscellaneous Notes* Result Encounter Note - Zoila Valiente APRN.CNP - 03/07/2025 9:01 AM EDT UDS CONSISTENT [facility] Radiology Diagnostic study note [facility] Imaging Services [address] [place], [place] [address] Esophagus Dual Contrast MR#: [id number] Acct: [id number] Name: CAROL ANN ORELLANA Rep #: [id number] : 1945 F 79 From: Dimitri Landis MD PCP: Dr. Ricardo Ruiz DO Status: REG C LI Study:Esophagus Dual Contrast Date of Exam: 03/06/25 Exam# [id number] Ordering Dr: Dai Steele MD PROCEDURE: ESOPHAGUS DUAL CONTRAST 03/06/2025 REASON FOR EXAM: DYSPHAGIA TECHNIQUE: Single and double contrast esophagram COMPARISON: None FINDINGS: Recurrent mid to distal esophageal spasm is seen. No area of persistent stenosis is seen, and no mass is identified a widely patent gastroesophageal junction is noted, with satisfactory passage of a 13 mm barium tablet also noted. A very small sliding-type hiatal hernia is noted. Limited imaging of the stomach and duodenum demonstrates no other abnormality. During the time of imaging, gastroesophageal reflux was not elicited. RAD/Esophagus Dual Contrast IMPRESSION: 1. Recurrent mid to distal esophageal spasm. 2. Very small sliding-type hiatal hernia Reading Location: [place] [address] CC: Dr. Ricardo Ruiz DO; Dr. Vaughn Steele MD ~ Security Shift Supervisor: Signed [facility]06-22-2025 Note. MICRO - Microbiology PROCEDURE: Urine Culture [*1] SOURCE: Urine, Clean Catch BODY SITE: COLLECTED DATE/TIME: 03/03/2025 16:04 EDT RECEIVED DATE/TIME: 03/03/2025 19:20 EDT START DATE/TIME: 03/03/2025 19:20 EDT FREE TEXT SOURCE: FINAL REPORTS Final Report [] Verified Date/Time/Personnel: 03/05/2025 08:02 EDT 10,000 - 50,000 cfu/ml Escherichia coli PRELIMINARY REPORTS Preliminary Report [] Verified Date/Time/Personnel: 03/04/2025 12:52 EDT 10,000 - 50,000 cfu/ml Escherichia coli BHAVANI to follow Preliminary Report [] Verified Date/Time/Personnel: 03/03/2025 19:59 EDT Specimen received in lab. SUSCEPTIBILITY RESULTS Escherichia coli Antibiotic BHAVANI Dilut BHAVANI Inter Ampicillin <=8 Susceptible Ampicillin/ <=4/2 Susceptible Sulbactam Aztreonam <=4 Susceptible Cefazolin <=2 Susceptible Cefepime <=2 Susceptible Ceftolozane/ <=2 Susceptible Tazobactam Ciprofloxacin <=0.25 Susceptible Ertapenem <=0.5 Susceptible Gentamicin <=2 Susceptible ID Panel Not Not Applicable Applicable Imipenem <=1 Susceptible Levofloxacin <=0.5 Susceptible Meropenem <=1 Susceptible Minocycline <=4 Susceptible Nitrofurantoin <=32 Susceptible Trimethoprim/ <=0.5/9.5 Susceptible Sulfa Performing Locations *1: This test was performed at: [facility], [address] [place] [address], [facility] , [facility]06-19-2025 History of Present illness Narrative* Zoila Valiente APRN.NUCLEAR FUEL PROCESSING TECHNICIAN - 03/02/2025 10:30 AM EDT Chief Complaint: Pain History of Present Illness: Carol Ann Orellana is a 79 year old year old female being seen at [facility] for a evaluation and/or management of her chronic pain. She states that since the last visit symptoms have been stable. She been is pending workup on her thyroid for possible cancer and thyroid removal. Her medical history has not changed and she denies any hospital stays or ER visits. Pain Level: 4 Pain Location: Back Description: Aching; Burning; Stabbing; Throbbing Duration Amount of Time: 20 Duration Units: Years Frequency: Continuous Intervention/Comfort measure: Medication; Reposition; Relaxation Has the Patient Had 2 Falls in the Last Year or 1 Fall with Injury or Currently Using an AmbulatoryAssistive Device (Walker, Cane, Wheelchair, Crutches, etc.): No The patient denies any bowel or bladder dysfunction. The patient is currently prescribed Tramadol ER, [place], lyrica and lidocaine cream from our office.The last dose of [place] was taken today and tramadol a long time ago. The medications are partially effective. She denies having any side effects from the medications. PDMP website checked and validated. The OARRS report has been reviewed and is consistent with the patients medical history and medication intake. Last Opioid agreement effective date: 06/03/2024 Last UDS: Ordered. 10/18/2024 UDS CONSISTENT 06/08/2024 UDS CONSISTENT 10/22/2023 UDS CONSISTENT 05/15/2023 UDS CONSISTENT Schedule after 930 am [facility] Urine Drug Screen Summary Report Date Value Ref Range Status 10/12/2024 FINAL Final Comment: Opiate Class, MS, Ur RFX Gabapentin, MS, Ur RFX Acetaminophen, MS, Ur RFX ToxAssure Flex 23, Ur Test Result Flag Units Drug Present Alpha-hydroxyalprazolam 71 ng/mg creat Alpha-hydroxyalprazolam is an expected metabolite of alprazolam. Source of alprazolam is a scheduled prescription medication. Hydrocodone 1287 ng/mg creat Hydromorphone 452 ng/mg creat Dihydrocodeine 146 ng/mg creat Norhydrocodone 2929 ng/mg creat Sources of hydrocodone include scheduled prescription medications. Hydromorphone, dihydrocodeine and norhydrocodone are expected metabolites of hydrocodone. Hydromorphone and dihydrocodeine are also available as scheduled prescription medications. Acetaminophen PRESENT Dextrorphan/Levorphanol PRESENT Dextrorphan is an expected metabolite of dextromethorphan, an [id number] or prescription cough suppressant. Levorphanol is a scheduled prescription medication. Dextrorphan cannot be distinguished from levorphanol by the method used for analysis. Test Result Flag Units Ref Range Creatinine 52 mg/dL >=20 Declared Medications: Medication list was not provided. For clinical consultation, please call . [facility] Urine Drug Screen and Benzo Confirm Urine Panel: Lab Results Component Value Date Cannabinoid Quant, Urine <16 10/15/2023 Benzoylecgonine Quant, Urine <24 10/15/2023 6-Acetylmorphine Quant, Urine <5 10/15/2023 Amphetamine Quant, Urine <5 10/15/2023 Methamphetamine Quant, Urine <8 10/15/2023 Buprenorphine Quant, Urine <20 10/15/2023 Norbuprenorphine Quant, Urine <20 10/15/2023 Methadone Quant, Urine <16 10/15/2023 EDDP Quant, Urine <6 10/15/2023 Tramadol Quant, Urine <25 10/15/2023 Desmethyltramadol Quant, Urine <20 10/15/2023 Fentanyl Quant, Urine <6 10/15/2023 Norfentanyl Quant, Urine <6 10/15/2023 Codeine Quant, Urine <11 10/15/2023 Morphine Quant, Urine <10 10/15/2023 Dihydrocodeine Quant, Urine 479 (H) 10/15/2023 Hydrocodone Quant, Urine 1,595 (H) 10/15/2023 Oxycodone Quant, Urine <10 10/15/2023 Hydromorphone Quant, Urine 607 (H) 10/15/2023 Oxymorphone Quant, Urine <5 10/15/2023 Chronic Pain Functional Assessment Tools Pain Disability Index: 12/25/2024 03/02/2025 Pain Disability Index Family/Home Responsibilities: This category includes chores or duties performed around the house (e.g. yard work), errands or favors for other family members (e.g. driving the children to school) 0 No Disability 0 No Disability Recreation: This category includes hobbies, sports, and other similar leisure time activities 0 No disability 0 No disability Social Activity: This category refers to activities which involve participation with friends and acquaintances, other than family members. It includes parties, theater, concerts, dinning out, and other social functions 0 No disability 0 No disability Occupation: This category refers to activities that are a part of or directly related to ones' job.This includes non-paying jobs as well, such as that of a housewife or volunteer worker 0 No disability 0 No disability Sexual Behavior: This category refers to the frequency and quality of one's sex life 0 No disability 0 No disability Self Care: This category includes activities which involve personal maintenance and independent daily living (e.g. taking a shower, driving, getting dress, etc) 0 No disability 0 No disability Life Support Activity: This category refers to basic-life supporting behaviors such as eating, sleeping, and breathing 0 No disability 0 No disability PDI Score 0 0 Pain Enjoyment of Life and General Activity Scale (0-10): PEG: A Three-Item Scale Assessing Pain Intensity and Interference What number best describes your pain on average in the past week?: (Patient- Rptd) 4 (12/25/2024 12:35 PM) What number best describes how, during the past week, pain has interfered with your enjoyment of life?: (Patient-Rptd) 1 (12/25/2024 12:35 PM) What number best describes how, during the past week, pain has interfered with your general activity?: (Patient-Rptd) 1 (12/25/2024 12:35 PM) SOAPP: SOAPP QUESTIONS How often do you have mood swings?: 0 - Never (03/02/2025 9:47 AM) How often do you smoke a cigarette within an hour after you wake up?: 0 - Never (03/02/2025 9:47 AM) How often have you taken medication other than the way it was prescribed?: 0 - Never (03/02/2025 9:47 AM) How often have you used illegal drugs (for example, marijuana, cocaine, etc.) in the past five years?: 0 - Never (03/02/2025 9:47 AM) How often, in your lifetime, have you had legal problems or been arrested?: 0 - Never (03/02/2025 9:47 AM) Sum of Questions (> or = 7 is positive): 0 (03/02/2025 9:47 AM) REVIEW OF SYSTEMS: GENERAL: No weight loss or fevers RESPIRATORY: Negative for cough CARDIOVASCULAR: Negative for chest pain GI: No nausea, vomiting, or diarrhea. MUSCULOSKELETAL: back pain and muscle pain PAST MEDICAL HISTORY Diagnosis Date Bladder infection Breast cancer (HCC) GERD (gastroesophageal reflux disease) Kidney stones Leg pain Migraines Neurogenic bladder Osteoarthrosis, unspecified whether generalized or localized, other specified sites Osteoporosis Other and unspecified disc disorder of unspecified region Intervertebral disc disorders DIAMOND (stress urinary incontinence, female) Thyroid disease Urethral hypermobility Urge incontinence Urgency of urination PAST SURGICAL HISTORY Procedure Laterality Date ANESTHESIA TOTAL KNEE REPLACEMENT APPENDECTOMY 08/1961 ARTHROTOMY KNEE W/SYNOVIAL BIOPSY ONLY Semilunar cartilage, knee - right BACK SURGERY HX 2011 BLADDER SURGERY HX 2012 BREAST SURGERY HX Right 2018 breast and 3 lymph nodes removed CARPAL TUNNEL Left 12/1979 CATARACT EXTRACTION HX CATARACT EXTRACTION HX 2009 CHOLECYSTECTOMY ELBOW SURGERY HX Left 1994 EXPLORATORY LAPAROTOMY CELIOTOMY W/WO BIOPSY SPX Laparotomy, exp - lysis of adhesions HAND SURGERY HX Right 1989 KNEE SURGERY HX Right removal of meniscus LX EXCISION OF BLADDER TUMOR 1979, 1983 OOPHORECTOMY PARTIAL/TOTAL UNI/BI Oophorectomy TOTAL ABDOMINAL HYSTERECT W/WO RMVL TUBE OVARY Hysterectomy, TOTAL KNEE REPLACEMENT 2009 FAMILY HISTORY Problem Relation Age of Onset Diabetes Mother Stroke Mother Hypertension Mother Heart Father Hypertension Father Heart disease Brother Diabetes Brother Social History Tobacco Use Smoking status: Former Current packs/day: 0.00 Types: Cigarettes Start date: 1967 Quit date: 1982 Years since quittin.4 Smokeless tobacco: Never Substance Use Topics Alcohol use: No Drug use: No Allergies: Oxycodone-Acetamino* Other: See Comments Cortisone Doxycycline Unknown Iv Dye [Iodinated C* Rash Montelukast Unknown, Rash Oxycodone Unknown Sulfa (Sulfonamide * Latex Rash Current Outpatient Medications Medication Sig HYDROcodone-Acetaminophen (NORCO) 10-325 mg per tablet Take 1 tablet by mouth every 6 hours as needed for pain for up to 30 days. Patient should start on January 09, 2025. HYDROcodone-Acetaminophen (NORCO) 10-325 mg per tablet Take 1 tablet by mouth every 6 hours as needed for pain for up to 30 days. Patient should start on February 08, 2025. lidocaine (LIDODERM) 5 % Apply 1 patch as directed every 24 hours. lidocaine (XYLOCAINE) 5 % ointment Apply to affected area four times a day as needed (pain). Pregabalin (LYRICA) 200 mg capsule Take 1 capsule by mouth three times a day for 30 days. Patient should start on January 09, 2025. traMADol 100 mg 24 hr tablet Take 1 tablet by mouth once daily for 30 days. Patient should start onJanuary 25, 2025. traZODone (DESYREL) 150 mg tablet Take 1 tablet by mouth daily at bedtime. metoclopramide HCl (REGLAN) 10 mg tablet TAKE 1 TABLET Oral 30 minutes prior to a meal prochlorperazine (COMPAZINE) 5 mg tablet TAKE 1 TABLET BY MOUTH THREE TIMES DAILY NEEDED FOR NAUSEA AND VOMITING ramelteon (ROZEREM) 8 mg tablet take 1 tablet oral at bedtime hydrALAZINE (APRESOLINE) 25 mg tablet Take 25 mg by mouth daily at bedtime. pantoprazole DR (PROTONIX) 40 mg tablet Take 40 mg by mouth two times a day. cycloSPORINE 0.05 % drop Use 1 Drop in both eyes two times a day. apixaban (ELIQUIS) 5 mg tab(s) Take 5 mg by mouth. methylPREDNISolone (MEDROL DOSE-PACK) 4 mg Dose-Pack Take 1 tablet by mouth as directed. As Instructed per package MEDICATION, NON-DATABASE Apply 1 Each to affected area once daily. Cervical Traction Device losartan (COZAAR) 50 mg tablet 50 mg twice daily. nebivolol (BYSTOLIC) 10 mg tablet Take 10 mg by mouth once daily. ondansetron (ZOFRAN) 4 mg tablet TAKE 1 TABLET BY MOUTH EVERY 6 HOURS NEEDED FOR NAUSEA OR FOR VOMITING omeprazole (PRILOSEC) 20 mg capsule TAKE 1 CAPSULE BY MOUTH DAILY ON AN EMPTY STOMACH QVAR REDIHALER 80 mcg/actuation inhaler INHALE 2 PUFFS BY MOUTH and into the lungs TWICE DAILY aspirin, enteric coated (ASPIRIN, ENTERIC COATED) 81 mg EC tablet 81 mg. albuterol HFA (PROVENTIL HFA, VENTOLIN HFA) 90 mcg/actuation inhaler INHALE 2 PUFFS BY MOUTH and into the lungs FOUR TIMES DAILY NEEDED mv, min #36-iron,carbonyl-FA (GERITOL COMPLETE) 16 mg iron- 0.38 mg tab Geritol Complete 16 mg iron- 0.38 mg tablet furosemide (LASIX) 20 mg tablet Take 20 mg by mouth as needed. iron/vitamin B complex (GERITOL ORAL) Take by mouth. tolterodine ER (DETROL LA) 4 mg 24 hr capsule Take 1 capsule by mouth once daily. fluticasone (FLOVENT) 220 mcg/actuation inhaler flovent hfa 220 mcg/act aero methylphenidate (RITALIN) 20 mg tablet Take 20 mg by mouth twice daily. levothyroxine (SYNTHROID) 50 mcg tablet Take 50 mcg by mouth daily before breakfast. ergocalciferol 50,000 unit capsule (VITAMIN D2, DRISDOL) Take 50,000 Units by mouth once each week. meclizine (ANTIVERT) 25 mg tab Take 25 mg by mouth as needed. For dizziness No current facility-administered medications for this visit. PHYSICAL EXAMINATION: BP 134/82 (BP Site: Left Arm, BP Position: Sitting) Pulse (!) 53 Resp 20 Wt 67.9 kg (149 lb 12.8 oz) SpO2 100% BMI 28.30 kg/m GENERAL: alert and appropriate, in no distress and well-hydrated, well nourished HEAD: normocephalic, no abnormality or lesion noted RESPIRATORY: breathing non-labored NEUROLOGIC: no obvious deficit MUSCULOSKELETAL: Steady gait, able to ascend/descend from the chair without difficulty ASSESSMENT: Patient is stable. Chronic pain is persistent. Medications are helping Carol Ann Orellana to have an improved quality of life. Patient compliance with Opioid Contract: patient is compliant Encounter Diagnosis ICD-10-CM 1. Other chronic pain G89.29 2. Postherpetic neuralgia B02.29 3. 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 Neck pain M54.2 5. Lumbar radiculopathy M54.16 6. Chronic left shoulder pain M25.512 G89.29 PLAN: Urine drug screen was ordered today because of patient being moderate risk for possible opioid abuse. She has stopped the xanax. She is having difficulty sleeping since it was stopped. The patient understands the goal of our treatment is a reduction in pain and/or an improved level of functioning with activities of daily living. If at any time the patient does not feel the medications are helping them to achieve these goals, the medications may be discontinued. The patient reports a reduction in pain and/or an improved level of functioning with activities of daily living, denies any significant adverse effects, is compliant with the pain management agreement and there are no signs of medication misuse, abuse or diversion; therefore, the medications will be continued. Continue [place] Continue tramadol ER A prescription for narcan (naloxone) has been offered to the patient. Continue Lyrica - Continue Lidocaine ointment/patches Stop trazodone Continue OTC stool softeners and Colace Pt is declining procedures at this time Continue care with PCP and specialists Follow up in 2 months Zoila Valiente APRN.CNP documented [facility]25 NoteHNO ID: [id number] Author: ZOILA VALIENTE APRN.CNP Service: ? Author Type: Nurse Practitioner Type: Progress Notes Filed: 03/02/2025 10:18 Note Text: Chief Complaint: Pain History of Present Illness: Carol Ann Orellana is a 79 year old year old female being seen at [facility] for a evaluation and/or management of her chronic pain. She states that since the last visit symptoms have been stable. She been is pending workup on her thyroid for possible cancer and thyroid removal. Her medical history has not changed and she denies any hospital stays or ER visits. Pain Level: 4 Pain Location: Back Description: Aching; Burning; Stabbing; Throbbing Duration Amount of Time: 20 Duration Units: Years Frequency: Continuous Intervention/Comfort measure: Medication; Reposition; Relaxation Has the Patient Had 2 Falls in the Last Year or 1 Fall with Injury or Currently Using an Ambulatory Assistive Device (Walker, Cane, Wheelchair, Crutches, etc.): No The patient denies any bowel or bladder dysfunction. The patient is currently prescribed Tramadol ER, [place], lyrica and lidocaine cream from our office. The last dose of [place] was taken today and tramadol a long time ago. The medications are partially effective. She denies having any side effects from the medications. PDMP website checked and validated. The OARRS report has been reviewed and is consistent with the patients medical history and medication intake. Last Opioid agreement effective date: 06/03/2024 Last UDS: Ordered. 10/18/2024 UDS CONSISTENT 06/08/2024 UDS CONSISTENT 10/22/2023 UDS CONSISTENT 05/15/2023 UDS CONSISTENT Schedule after 930 am [facility] Urine Drug Screen Summary Report Date Value Ref Range Status 10/12/2024 FINAL Final Comment: Opiate Class, MS, Ur RFX Gabapentin, MS, Ur RFX Acetaminophen, MS, Ur RFX ToxAssure Flex 23, Ur Test Result Flag Units Drug Present Alpha-hydroxyalprazolam 71 ng/mg creat Alpha-hydroxyalprazolam is an expected metabolite of alprazolam. Source of alprazolam is a scheduled prescription medication. Hydrocodone 1287 ng/mg creat Hydromorphone 452 ng/mg creat Dihydrocodeine 146 ng/mg creat Norhydrocodone 2929 ng/mg creat Sources of hydrocodone include scheduled prescription medications. Hydromorphone, dihydrocodeine and norhydrocodone are expected metabolites of hydrocodone. Hydromorphone and dihydrocodeine are also available as scheduled prescription medications. Acetaminophen PRESENT Dextrorphan/Levorphanol PRESENT Dextrorphan is an expected metabolite of dextromethorphan, an oxbf-ohr-tlhxmne or prescription cough suppressant. Levorphanol is a scheduled prescription medication. Dextrorphan cannot be distinguished from levorphanol by the method used for analysis. Test Result Flag Units Ref Range Creatinine 52 mg/dL >=20 Declared Medications: Medication list was not provided. For clinical consultation, please call . [facility] Urine Drug Screen and Benzo Confirm Urine Panel: Lab Results Component Value Date Cannabinoid Quant, Urine <16 10/15/2023 Benzoylecgonine Quant, Urine <24 10/15/2023 6-Acetylmorphine Quant, Urine <5 10/15/2023 Amphetamine Quant, Urine <5 10/15/2023 Methamphetamine Quant, Urine <8 10/15/2023 Buprenorphine Quant, Urine <20 10/15/2023 Norbuprenorphine Quant, Urine <20 10/15/2023 Methadone Quant, Urine <16 10/15/2023 EDDP Quant, Urine <6 10/15/2023 Tramadol Quant, Urine <25 10/15/2023 Desmethyltramadol Quant, Urine <20 10/15/2023 Fentanyl Quant, Urine <6 10/15/2023 Norfentanyl Quant, Urine <6 10/15/2023 Codeine Quant, Urine <11 10/15/2023 Morphine Quant, Urine <10 10/15/2023 Dihydrocodeine Quant, Urine 479 (H) 10/15/2023 Hydrocodone Quant, Urine 1,595 (H) 10/15/2023 Oxycodone Quant, Urine <10 10/15/2023 Hydromorphone Quant, Urine 607 (H) 10/15/2023 Oxymorphone Quant, Urine <5 10/15/2023 Chronic Pain Functional Assessment Tools Pain Disability Index: 12/25/2024 03/02/2025 Pain Disability Index Family/Home Responsibilities: This category includes chores or duties performed around the house (e.g. yard work), errands or favors for other family members (e.g. driving the children to school) 0 No Disability 0 No Disability Recreation: This category includes hobbies, sports, and other similar leisure time activities 0 No disability 0 No disability Social Activity: This category (more content not included)...[facility]06-18-2025 Instructions* Patient Instructions* Zoila Valiente APRN.CNP - 03/01/2025 7:58 AM EDT She has stopped the xanax. Despite its legality, THC containing products and CBD products that may contain THC are not to be used while being prescribed pain medications. If your drug screen contains any THC your medication will be discontinued. Continue [place] Continue tramadol ER A prescription for narcan (naloxone) has been offered to the patient. Continue Lyrica - Continue Lidocaine ointment/patches Continue OTC stool softeners and Colace Pt is declining procedures at this time Continue care with PCP and specialists Follow up in 2 months documented in this encounterSum[facility]06-13-[facility]25 Evaluation + Plan note Extracted from: Title:IR Pre-procedure H&P Author:RICARDO DAWSON PA-C Date:02/24/25 IR PREPROCEDURE H&P UPDATE IF A HISTORY AND PHYSICAL EXAMINATION HAS BEEN COMPLETED PRIOR TO ADMISSION TO THE HOSPITAL, AN UPDATED EXAMINATION MUST BE COMPLETED AND DOCUMENTED WITHIN 24 HOURS AFTER ADMISSION OR REGISTRATION BUT BEFORE A SURGICAL PROCEDURE. I have examined the patient, reviewed the H&P, and there are no changes unless noted below: _ The most recent H&P/Office Note was performed on 02/13/2025 and can be found in the [facility] Records ([facility]). Ricardo Dawson PA-C Interventional Radiology Pager: [phone] IR dept: x [phone] Available on [employer] Appointments Appointment Date:03/27/2025 10:45:00 AM Scheduled Provider:HANANE RODRIGUEZ MD Location:HEM ONC Appointment Type:HEM ONC OV Follow Up daysi/ Appointment Date:05/22/2025 10:30:00 AM Scheduled Provider:RICARDO RUIZ DO Location:D[facility] RAS Appointment Type:PC OV Controlled Medication Appointment Date:06/15/2025 11:30:00 AM Scheduled Provider:LAURA CAGE MD Location:RAD ONC MANAS Appointment Type:RO Follow Up 30 Scheduled Tests Laboratory* TgAb+Thyroglobulin,CURRY or LCMS 01/21/25 * Amylase Level 09/27/24 * Lactate Dehydrogenase 12/21/24 * Lipase Level 09/27/24 * Thyroid Stimulating Hormone 01/21/25 * Free T4 01/07/25 * Complete Blood Count 03/27/25 * Complete Blood Count 12/21/24 * Free T3 01/07/25 * Complete Metabolic Panel 03/27/25 * Complete Metabolic Panel 12/21/24 Radiology* XR Shoulder Minimum 2 Views Right 12/26/24 [facility] 06-13-2025 Note* Coco Menchaca E: SIGN, AUTHOR, PERFORM Event Display: IR Procedure Record Authored Date: [id number] IR Procedure Record Summary Primary Physician: CHRISTIANO MILES MD Finalized Date/Time: 02/24/25 10:39:07 Pt. Name: ORELLANACAROL ANN D.O.B./Sex: 1945 Female Med Rec #: [id number] Physician: Financial #: [id number] Pt. Type: O Room/Bed: / Admit/Disch: 02/24/25 09:03:00 - Institution: Allergies identified in patient's electronic medical record at time of printing on 02/24/25 Entry 1 Entry 2 Entry 3 Substance Latex Percocet 5/325 doxycycline Reaction Type Allergy Allergy Sensitivity Last Modified By: Megan Campbell RN, Sandy K RN Wooldridge, Sandy K RN 06/15/18 09:59:11 06/15/18 11:14:54 06/15/18 09:58:34 Entry 4 Entry 5 Entry 6 Substance montelukast sulfa drug sulfamethoxazole Reaction Type Allergy Allergy Allergy Last Modified By: Leidy Overton LPN, Kayla N RN Dodson, RN Tracy M 07/13/19 11:41:26 05/09/22 08:57:41 03/10/16 12:06:32 Case Attendance- IR Entry 1 Entry 2 Case Attendee CHRISTIANO MILES MD, Kassidy E Role Performed Primary Surgeon Utilization Review Specialist Details Time In 02/24/25 10:07:00 02/24/25 10:03:00 Time Out 02/24/25 10:56:00 02/24/25 11:00:00 Procedure/Preference IR Thyroid Biopsy SN IR Thyroid Biopsy SN Card Last Modified By: Coco Menchaca Kassidy E 02/24/25 10:22:02 02/24/25 10:22:02 Radiology Procedures- IR Entry 1 Procedure/Preference IR Thyroid Biopsy SN Actual Procedure IR THYROID BIOPSY Card Primary Procedure Yes Primary Surgeon CHRISTIAON MILES MD Anesthesia/Sedation Local Type Additional Procedure Times Start 02/24/25 10:30:00 Stop 02/24/25 10:55:00 Specialty Service SN Radiology Procedure EBL 0 mL Last Modified By: Coco Menchaca 02/24/25 10:22:01 Radiology Procedure Details - IR Entry 1 Radiology Sedation Case Times Sedation Total Time 0 Radiology - Fluid/Drainage Radiology Contrast Contrast Used? N/A Radiology Flouroscopy Fluoroscopy Used? N/A Fluoro Time 0 Radiology Local Local Used? Yes Radiology Procedure Site Site Condition No complications Dressing Type Bandaids Last Modified By: Coco Menchaca 02/24/25 10:23:27 Cultures and Specimens- IR Entry 1 Kind Specimen Type Nodule Last Modified By: Coco Menchaca 02/24/25 10:20:21 General Case Data - IR Entry 1 Case Information Room IR US Case Level IR Level 2 Wound Class None Specialty SN Radiology Procedure ASA Class None Diagnosis Preop Diagnosis left thyroid nodule Postop Same As Preop Yes Postop Diagnosis left thyroid nodule Last Modified By: Coco Menchaca 02/24/25 10:21:39 Medication Administration- IR Entry 1 Medication 2% Lidocaine Time Administered 02/24/25 10:32:00 Route of Admin Local Volume 5 mL VORB Administered by Yes Administered by: CHRISTIANO MILES MD Physician? Last Modified By: Coco Menchaca 02/24/25 10:20:04 Procedure Case Times- IR Entry 1 Patient In Procedure Patient In OR 02/24/25 10:07:00 Patient Out of OR 02/24/25 10:38:00 Procedure Start/Stop Procedure Start Time 02/24/25 10:30:00 Procedure Stop Time 02/24/25 10:36:00 Last Modified By: Coco Menchaca 02/24/25 10:38:50 Immediate Post OP Note - IR Entry 1 Immediate Post Yes Procedure Note displayed for Physician to review Closure Technique Closure Technique Other than Primary Last Modified By: Coco Menchaca 02/24/25 10:20:25 Immediate Post OP Note - IR Signed By: CHRISTIANO MILES MD 02/24/25 10:30 Allergy Information- IR Entry 1 Allergies Reviewed? Yes Last Modified By: Coco Menchaca 02/24/25 10:14:52 Radiology Protocols/Time Out- IR Entry 1 Preprocedure Clinician Verifies Correct patient ID When Clinically Confirmation of correct using name & date Indicated side(s) and site(s), or MRN, Accurate Correct diagnostic and procedure, complete radiology tests Informed Consent, H & P available update immediately prior to procedure, if applicable OR/Procedure Room/Bedside Time 02/24/25 10:31:00 Clinician Verifies Correct patient identity including EMR & records using name and date or medical record number, Accurate procedure consent form, Correct patient position, Necessary equipment is available When Applicable Confirmation correct Team Members CHRISTIANO MILES MD side and site marked, Present for Time Out Relevant images and results are properly labeled and appropriately displayed, Alcohol based prep dry, Double verification of sterility indicators complete Instrument Sterility Team Members CHRISTIANO MILES MD Verifying Sterility Procedure IR Thyroid Biopsy SN Last Modified By: Coco Menchaca 02/24/25 10:20:50 Skin Prep- IR Entry 1 Procedure IR Thyroid Biopsy SN Skin Prep Prep Area Neck Side Left By CHRISTIANO MILES MD Prep Agents Chloraprep Hair Removal Method N/A Last Modified By: Coco Menchaca 02/24/25 10:20:15 Patient Positioning- IR Entry 1 Procedure IR Thyroid Biopsy SN Body Position OP Supine Feet Uncrossed? Yes Pressure Points Yes Checked Last Modified By: Coco Menchaca 02/24/25 10:22:02 Radiology Procedure Plan - IR Entry 1 Radiology - Nursing Care Plan Radiology - Action Plan Action Plan - Patient demonstrates Outcome Statement knowledge of the expected reseponses to the invasive procedure, Patient's value system, lifestyle, ethnicity, and culture are considered, respected, and incorporated in the perioperative plan of care., Patient is free from signs and symptoms of infection., Patient is free from signs and symptoms of injury related to positioning., Patient receives appropriate medication(s), safely administered during the perioperative period., Patient is free from signs and symptoms of injury caused by extraneous objects (equipment, instrumentation, sponges, or sharps)., Patient is free from signs and symptoms of electrical injury. Outcomes Met? Yes Research Specialist Coco Menchaca Completing Procedure Plan Last Modified By: Coco Menchaca 02/24/25 10:21:21 Transfer Post Procedure- IR Entry 1 RAD - Transport to Recovery Via Ambulatory Post-op Destination Home Transported By Coco Menchaca Post Procedure Time Out Double Verification Yes Date/Time Verified 02/24/25 10:38:00 of ID band on patient Completed Verfied ID Band on Coco Menchaca by Last Modified By: Coco Menchaca 02/24/25 10:38:59 Case Comments <None> Finalized By: Coco Menchaca Document Signatures Signed By: Coco Menchaca 02/24/25 10:39 [facility] 06-13-2025 Hospital Discharge instructions Patient Education 02/24/2025 10:15:46 Thyroid Needle Biopsy, Care After Thyroid Needle Biopsy, Care After This sheet gives you information about how to care for yourself after your procedure. Your health care provider may also give you more specific instructions. If you have problems or questions, contact your health care provider. What can I expect after the procedure? After the procedure, it is common to have: Soreness and tenderness that lasts for a few days. Bruising where the needle was inserted (puncture site). Follow these instructions at home: Take [id number] and prescription medicines only as told by your health care provider. To help ease discomfort, keep your head raised (elevated) when you are lying down. When you move from lying down to sitting up, use both hands to support the back of your head and neck. Check your puncture site every day for signs of infection. Check for: ?Redness, swelling, or pain. ?Fluid or blood. ?Warmth. ?Pus or a bad smell. Return to your normal activities as told by your health care provider. Ask your health care provider what activities are safe for you. Keep all follow-up visits as told by your health care provider. This is important. Contact a health care provider if: You have redness, swelling, or pain around your puncture site. You have fluid or blood coming from your puncture site. Your puncture site feels warm to the touch. You have pus or a bad smell coming from your puncture site. You have a fever. Get help right away if: You have severe bleeding from the puncture site. You have difficulty swallowing. You have swollen glands (lymph nodes) in your neck. Summary It is common to have some bruising and soreness where the needle was inserted in your lower front neck area (puncture site). Check your puncture site every day for signs of infection, such as redness, swelling, or pain. Get help right away if you have severe bleeding from your puncture site. This information is not intended to replace advice given to you by your health care provider. Make sure you discuss any questions you have with your health care provider. Document Released: 03/28/2015 Document Revised: 08/13/2018 Document Reviewed: 06/14/2018 [employer] Patient Education [facility] Follow Up Care 01/27/2025 07:44:04 With:Follow up with primary care provider Address:Unknown When: Unknown [facility] 06-13-2025 NoteORIGINAL PROCEDURE: Ultrasound guided fine needle aspiration (FNA) thyroid biopsy performed on 02/24/2025. INDICATION: Abnormal PET/CT and ultrasound with recommendation for biopsy. Thyroid nodule. COMPARISON: Thyroid ultrasound dated 01/23/2025. TECHNIQUE/FINDINGS: The procedure was performed in the Ultrasound Suite following informed consent and a preprocedure Time Out. The patient received lidocaine to obtain local anesthesia. The neck was prepped and draped in the usual sterile fashion. Ultrasound evaluation of the thyroid was performed with attention to the suspicious left thyroid nodule. An appropriate skin entry site was selected. Using ultrasound guidance, a 25-G needle was placed into the targeted left thyroid nodule. A total of 4 biopsies were obtained, which were sent for pathology. The obtained specimens were fixed to glass slides and additional material placed in Cytolyte. A dedicated sample was obtained for genetic/molecular testing. The patient tolerated the procedure well and there were no immediate complications. Sonographic images were captured and archived during this ultrasound guided procedure. IMPRESSION: Successful ultrasound-guided FNA biopsy of a left thyroid nodule. Interpreted by: Christiano Miles MD Preliminary Report By: Christiano Miles MD Electronically signed By Christiano Miles MD Dictated Date: 02/24/2025 10:59:44 AM Prelim Date: 02/24/2025 11:00:26 AM Sign Date: 02/24/2025 11:00:26 AM Ordering Provider: [facility]06-13-[facility] Note* Exam Date Time Procedure Performing Provider Status 02/24/25 10:47 AM IR Thyroid Biopsy CHRISTIANO MILES MD; Auth (Verified) [id number] ORIGINAL PROCEDURE: Ultrasound guided fine needle aspiration (FNA) thyroid biopsy performed on 02/24/2025. INDICATION: Abnormal PET/CT and ultrasound with recommendation for biopsy. Thyroid nodule. COMPARISON: Thyroid ultrasound dated 01/23/2025. TECHNIQUE/FINDINGS: The procedure was performed in the Ultrasound Suite following informed consent and a preprocedure Time Out. The patient received lidocaine to obtain local anesthesia. The neck was prepped and draped in the usual sterile fashion. Ultrasound evaluation of the thyroid was performed with attention to the suspicious left thyroid nodule. An appropriate skin entry site was selected. Using ultrasound guidance, a 25-G needle was placed into the targeted left thyroid nodule. A total of 4 biopsies were obtained, which were sent for pathology. The obtained specimens were fixed to glass slides and additional material placed in Cytolyte. A dedicated sample was obtained for genetic/molecular testing. The patient tolerated the procedure well and there were no immediate complications. Sonographic images were captured and archived during this ultrasound guided procedure. IMPRESSION: Successful ultrasound-guided FNA biopsy of a left thyroid nodule. Interpreted by: Christiano Miles MD Preliminary Report By: Christiano Miles MD Electronically signed By Christiano Miles MD Dictated Date: 02/24/2025 10:59:44 AM Prelim Date: 02/24/2025 11:00:26 AM Sign Date: 02/24/2025 11:00:26 AM Ordering Provider: [facility]06-13-2025 Note IR Procedure Record Summary Primary Physician: CHRISTIANO MILES MD Finalized Date/Time: 02/24/25 10:39:07 Pt. Name: CAROL ANN ORELLANA Cristin Rivera/Sex: 1945 Female Med Rec #: [id number] Physician: Financial #: [id number] Pt. Type: O Room/Bed: / Admit/Disch: 02/24/25 09:03:00 - Institution: Allergies identified in patient's electronic medical record at time of printing on 02/24/25 Entry 1 Entry 2 Entry 3 Substance Latex Percocet 5/325 doxycycline Reaction Type Allergy Allergy Sensitivity Last Modified By: Megan Campbell RN, Sandy K RN Wooldridge, Sandy K RN 06/15/18 09:59:11 06/15/18 11:14:54 06/15/18 09:58:34 Entry 4 Entry 5 Entry 6 Substance montelukast sulfa drug sulfamethoxazole Reaction Type Allergy Allergy Allergy Last Modified By: Leidy Overton LPN, Kayla N RN Dodson, RN Tracy M 07/13/19 11:41:26 05/09/22 08:57:41 03/10/16 12:06:32 Case Attendance- IR Entry 1 Entry 2 Case Attendee CHRISTIANO MILES MD, Kassidy E Role Performed Primary Surgeon Utilization Review Specialist Details Time In 02/24/25 10:07:00 02/24/25 10:03:00 Time Out 02/24/25 10:56:00 02/24/25 11:00:00 Procedure/Preference IR Thyroid Biopsy SN IR Thyroid Biopsy SN Card Last Modified By: Coco Menchaca Kassidy E 02/24/25 10:22:02 02/24/25 10:22:02 Radiology Procedures- IR Entry 1 Procedure/Preference IR Thyroid Biopsy SN Actual Procedure IR THYROID BIOPSY Card Primary Procedure Yes Primary Surgeon CHRISTIANO MILES MD Anesthesia/Sedation Local Type Additional Procedure Times Start 02/24/25 10:30:00 Stop 02/24/25 10:55:00 Specialty Service SN Radiology Procedure EBL 0 mL Last Modified By: Coco Menchaca 02/24/25 10:22:01 Radiology Procedure Details - IR Entry 1 Radiology Sedation Case Times Sedation Total Time 0 Radiology - Fluid/Drainage Radiology Contrast Contrast Used? N/A Radiology Flouroscopy Fluoroscopy Used? N/A Fluoro Time 0 Radiology Local Local Used? Yes Radiology Procedure Site Site Condition No complications Dressing Type Bandaids Last Modified By: Coco Menchaca 02/24/25 10:23:27 Cultures and Specimens- IR Entry 1 Kind Specimen Type Nodule Last Modified By: Coco Menchaca 02/24/25 10:20:21 General Case Data - IR Entry 1 Case Information Room AH IR US Case Level IR Level 2 Wound Class None Specialty SN Radiology Procedure ASA Class None Diagnosis Preop Diagnosis left thyroid nodule Postop Same As Preop Yes Postop Diagnosis left thyroid nodule Last Modified By: Coco Menchaca 02/24/25 10:21:39 Medication Administration- IR Entry 1 Medication 2% Lidocaine Time Administered 02/24/25 10:32:00 Route of Admin Local Volume 5 mL VORB Administered by Yes Administered by: CHRISTIANO MILES MD Physician? Last Modified By: Coco Menchaca 02/24/25 10:20:04 Procedure Case Times- IR Entry 1 Patient In Procedure Patient In OR 02/24/25 10:07:00 Patient Out of OR 02/24/25 10:38:00 Procedure Start/Stop Procedure Start Time 02/24/25 10:30:00 Procedure Stop Time 02/24/25 10:36:00 Last Modified By: Coco Menchaca 02/24/25 10:38:50 Immediate Post OP Note - IR Entry 1 Immediate Post Yes Procedure Note displayed for Physician to review Closure Technique Closure Technique Other than Primary Last Modified By: Coco Menchaca 02/24/25 10:20:25 Immediate Post OP Note - IR Signed By: CHRISTIANO MILES MD 02/24/25 10:30 Allergy Information- IR Entry 1 Allergies Reviewed? Yes Last Modified By: Coco Menchaca 02/24/25 10:14:52 Radiology Protocols/Time Out- IR Entry 1 Preprocedure Clinician Verifies Correct patient ID When Clinically Confirmation of correct using name & date Indicated side(s) and site(s), or MRN, Accurate Correct diagnostic and procedure, complete radiology tests Informed Consent, H & P available update immediately prior to procedure, if applicable OR/Procedure Room/Bedside Time 02/24/25 10:31:00 Clinician Verifies Correct patient identity including EMR & records using name and date or medical record number, Accurate procedure consent form, Correct patient position, Necessary equipment is available When Applicable Confirmation correct Team Members CHRISTIANO MILES MD side and site marked, Present for Time Out Relevant images and results are properly labeled and appropriately displayed, Alcohol based prep dry, Double verification of sterility indicators complete Instrument Sterility Team Members CHRISTIANO MILES MD Verifying Sterility Procedure IR Thyroid Biopsy SN Last Modified By: Coco Menchaca 02/24/25 10:20:50 Skin Prep- IR Entry 1 Procedure IR Thyroid Biopsy SN Skin Prep Prep Area Neck Side Left By CHRISTIANO MILES MD Prep Agents Chloraprep Hair Removal Method N/A Last Modified By: Coco Menchaca 02/24/25 10:20:15 Patient Positioning- IR Entry 1 Procedure IR Thyroid Biopsy SN Body Position OP Supine Feet Uncrossed? Yes Pressure Points Yes Checked Last Modified By: Coco Menchaca 02/24/25 10:22:02 Radiology Procedure Plan - IR Entry 1 Radiology - Nursing Care Plan Radiology - Action Plan Action Plan - Patient demonstrates Outcome Statement knowledge of the expected reseponses to the invasive procedure, Patient's value system, lifestyle, ethnicity, and culture are considered, respected, and incorporated in the perioperative plan of care., Patient is free from signs and symptoms of infection., Patient is free from signs and symptoms of injury related to positioning., Patient receives appropriate medication(s), safely administered during the perioperative period., Patient is free from signs and symptoms of injury caused by extraneous objects (equipment, instrumentation, sponges, or sharps)., Patient is free from signs and symptoms of electrical injury. Outcomes Met? Yes Research Specialist Coco Menchaca Completing Procedure Plan Last Modified By: Coco Menchaca 02/24/25 10:21:21 Transfer Post Procedure- IR Entry 1 RAD - Transport to Recovery Via Ambulatory Post-op Destination Home Transported By Coco Menchaca Post Procedure Time Out Double Verification Yes Date/Time Verified 02/24/25 10:38:00 of ID band on patient Completed Verfied ID Band on Coco Menchaca by Last Modified By: Coco Menchaca 02/24/25 10:38:59 Case Comments Finalized By: Ccoo Menchaca Document Signatures Signed By: Coco Menchaca 02/24/25 10:39 [id number] Summary of episode note Discharge Instructions Thank you for allowing [facility] to assist you with your healthcare needs. The following is importantdischarge information regarding your hospital visit. Your Care Team RICARDO RUIZ DO What to do next Scheduled Follow-Up Appointments Appointment Type When With Where Contact Information StatusHEM ONC OV Follow Up Tuan 03/27/2025 10:45 AM EDT HANANE RODRIGUEZ MD Hematology and Oncology Confirmed PC OV Controlled Medication 05/22/2025 10:30 AM EDT RICARDO RUIZ DO [facility] Ric Confirmed RO Follow Up 30 06/15/2025 11:30 AM EDT LAURA CAGE MD Radiation Oncology [place] [id number] [place] [id number] Confirmed Follow Up Appointments Follow Up with Follow up with primary care provider The Following Activity and Diet Have Been Ordered for You No qualifying data available. No qualifying data available. The Following Equipment Has Been Ordered for You No qualifying data available. The Following Treatments Have Been Ordered for You Discharge Labs No qualifying data available. Discharge Radiology No qualifying data available. Other Therapies No qualifying data available. Post Acute Orders No qualifying data available. Someone Will Contact You Regarding These Home Health Referrals No home referrals have been ordered for you. No one will call you. Allergies Latex RASH Percocet 5/325 HYPER doxycycline WEAKNESS montelukast "thick tongue", Rash sulfa drug sulfamethoxazole nausea, diaphoresis Medications Please ask your primary doctor or pharmacist before taking any other medication not listed, including over the counter drugs, herbal medications, vitamins and or supplements as they may interact withyour home medications. What How Much When Why Instructions Last Dose Unchanged acetaminophen- hydrocodone ([place] 325-10 mg oral tablet) 1 tab(s) by mouth Every 8 hours as needed for for pain Unchanged albuterol (albuterol MDI (90 mcg/ inh) CFC free inhalation aerosol) 2 puff(s) by inhalation Every 4 hours as needed for as needed COPD without exacerbation Unchanged apixaban (Eliquis 5 mg oral tablet) 1 tab(s) by mouth Two (2) times a day Take 1 tablet twice daily Unchanged ascorbic acid (Vitamin C 1000 mg oral tablet) See instructions Iron deficiency anemia 1 tab(s) Oral every other day with iron Unchanged benzonatate (benzonatate 100 mg oral capsule) 1 cap by mouth Three (3) times a day Unchanged cycloSPORINE ophthalmic (cycloSPORINE 0.05% ophthalmic emulsion) 1 Drops Both eyes Two (2) times a day Unchanged diclofenac topical (diclofenac 1% topical gel) 4 gram(s) Topical Every 8 hours left lateral hip. Unchanged docusate (Colace 100 mg oral capsule) 2 cap by mouth Daily at bedtime as needed for as needed for constipation Unchanged ergocalciferol (ergocalciferol 50,000 intl units (1.25 mg) oral capsule) 1 cap by mouth Every week Unchanged erythromycin ophthalmic (erythromycin 0.5% ophthalmic ointment) Unchanged estradiol topical (estradiol 0.1 mg/ g vaginal cream) Unchanged ferrous sulfate (ferrous sulfate 325 mg (65 mg elemental iron) oral delayed release tablet) See instructions Iron deficiency anemia 1 tab(s) Oral every other day with vitamin C and a meal. Unchanged furosemide (furosemide 20 mg oral tablet) 1 tab(s) by mouth Once a day Hypertension Unchanged hydrALAZINE (hydrALAZINE 25 mg oral tablet) 1 tab(s) by mouth Daily at bedtime Hypertension Unchanged levothyroxine (Synthroid 50 mcg (0.05 mg) oral tablet) 1 tab(s) by mouth Once a day before a meal Unchanged lidocaine topical (lidocaine 2% mucous membrane solution) 5 Milliliter Topical Four (4) times a day as needed for as needed for mouth sore pain Glossitis swish in mouth x 1 minute then spit out. Unchanged losartan (losartan 50 mg oral tablet) 1 tab(s) by mouth Two (2) times a day Unchanged lubiprostone (lubiprostone 24 mcg oral capsule) TAKE 1 CAPSULE BY MOUTH TWICE DAILY Unchanged meclizine (meclizine 25 mg oral tablet) 1 tab(s) by mouth Three (3) times a day as needed for as needed for dizziness Unchanged methylphenidate (methylphenidate 20 mg oral tablet) 1 tab(s) by mouth Two (2) times a day Attention deficit hyperactivity disorder, inattentive type Duration: 30 Days fill Unchanged methylphenidate (methylphenidate 20 mg oral tablet) 1 tab(s) by mouth Two (2) times a day Attention deficit hyperactivity disorder, inattentive type Duration: 30 Days fill Unchanged methylphenidate (methylphenidate 20 mg oral tablet) 1 tab(s) by mouth Two (2) times a day Attention deficit hyperactivity disorder, inattentive type Duration: 30 Days fill Unchanged mirtazapine (mirtazapine 15 mg oral tablet) 1 tab(s) by mouth Daily at bedtime replace ramelteon Unchanged nebivolol (Bystolic 10 mg oral tablet) See instructions 2 tabs in AM, 1 in PM Unchanged omeprazole (omeprazole 40 mg oral delayed release capsule) 1 cap by mouth Two (2) times a day GERD (gastroesophageal reflux disease) Epigastric pain replace pantoprazole and metoclopramide Unchanged ondansetron (ondansetron 4 mg oral tablet) TAKE 1 TABLET BY MOUTH EVERY 8 HOURS NEEDED Unchanged pregabalin (pregabalin 200 mg oral capsule) 1 cap by mouth Three (3) times a day Unchanged prochlorperazine (prochlorperazine 5 mg oral tablet) 0.5 tab(s) by mouth Two (2) times a day Unchanged traMADol (traMADol 100 mg oral tablet) 1 tab(s) by mouth Once a day as needed for as needed for pain not to exceed 400 mg/ day Unchanged traZODone (traZODone 100 mg oral tablet) 1 tab(s) by mouth Once a day Please take this list to your next doctor s visit. Bring all medications you take, including over the counter medications, herbals and other supplements with you to your doctor s visit. Patients and families are reminded to discard old lists and to update any records with all medication providers or retail pharmacies. Education Materials Thyroid Needle Biopsy, Care After This sheet gives you information about how to care for yourself after your procedure. Your health care provider may also give you more specific instructions. If you have problems or questions, contact your health care provider. What can I expect after the procedure? After the procedure, it is common to have: Soreness and tenderness that lasts for a few days. Bruising where the needle was inserted (puncture site). Follow these instructions at home: Take [id number] and prescription medicines only as told by your health care provider. To help ease discomfort, keep your head raised (elevated) when you are lying down. When you move from lying down to sitting up, use both hands to support the back of your head and neck. Check your puncture site every day for signs of infection. Check for: ? Redness, swelling, or pain. ? Fluid or blood. ? Warmth. ? Pus or a bad smell. Return to your normal activities as told by your health care provider. Ask your health care provider what activities are safe for you. Keep all follow-up visits as told by your health care provider. This is important. Contact a health care provider if: You have redness, swelling, or pain around your puncture site. You have fluid or blood coming from your puncture site. Your puncture site feels warm to the touch. You have pus or a bad smell coming from your puncture site. You have a fever. Get help right away if: You have severe bleeding from the puncture site. You have difficulty swallowing. You have swollen glands (lymph nodes) in your neck. Summary It is common to have some bruising and soreness where the needle was inserted in your lower front neck area (puncture site). Check your puncture site every day for signs of infection, such as redness, swelling, or pain. Get help right away if you have severe bleeding from your puncture site. This information is not intended to replace advice given to you by your health care provider. Make sure you discuss any questions you have with your health care provider. Document Released: 03/28/2015 Document Revised: 08/13/2018 Document Reviewed: 06/14/2018 [employer] Patient Education 2020 [employer] Additional Information VACCINATE! IT SAVES LIVES! Members of the community who have not yet received the COVID-19 vaccine and would like to receive it can visit one of [facility] vaccine clinics. There are many vaccine clinic locations within the [facility]. For locations and available times, please visit https://gettheshot.coronavirus.[place].gov/. It is important to note that some COVID mobile vaccine clinics are held outdoors and may be canceled in rainy or stormy conditions. To learn more about pediatric vaccinations (ages 5-11), we invite you to visit the [facility] webpage. [email or web address]/[email or web address] [email or web address] learn more about the COVID-19 vaccine, we invite you to visit the CDC website for a list of frequently asked questions.https://www.cdc.gov/coronavirus/2019-ncov/vaccines/faq.html [facility] Access Instructions: Stay connected with your healthcare team and access your personal medical information anytime with the [facility] Patient Portal. Please follow the directions below to create your [facility] account: 1.Access the email account you provided upon registration to the hospital/physician office.2.Look for an invitation email from [facility].3.Open the email and access the invitation link: AcceptInvitation to [facility] [employer].4.Fill in the required drew to create your account. To access your account, visit [email or web address]. Click the blue button labeled "Access Patient Portal" and then log in with the username and password that you created in the steps above. You will be able to view your test results, lab results, a summary of your visits, upcoming appointments and more. There is also a convenient messaging option where you can send secure messages to your p [place] [employer]. In addition, you will have the ability to download any documents or summaries to your computer and/or send the information securely to a physician. Remember that your healthcare information is confidential, so carefully consider who you will allowto register on the [facility] [facility] Patient Portal for access to your information. You can also access the [facility] on the [facility] cathy. Simply click on "Patient Portal" and then log into your account. If you would like to receive a full copy of your medical records, please contact the [facility] Medical Records Department by calling [phone], Thursday through Thursday between 8 a.m. and 4:30 p.m. HOW TO SAFELY DISPOSE OF PRESCRIPTION MEDICATIONS Please use one of the following methods to safely dispose of your unused medications. 1.Use a drug disposal kit: the drug disposal pouch allows you to safely discard your old and unuseddrugs. Ask your nurse to give you one when you are discharged.2.Visit a local take-back location: Many local pharmacies and police departments have programs that collect old and unwanted prescriptiondrugs. Call your local pharmacy or go to http://Talknote.[employer]/6F8Sp0c to find one close to you.3.Make use of household items: Use cat litter or old coffee grounds to dispose medications if other options arenot available. Mix your drugs with these household products, seal them in an airtight container andthrow it into the garbage. Call [facility]: [phone] to be sure your drugs can be disposed of in this way. Some medicines may require a different approach.4.Never flush your medications down the toilet. IF YOU HAVE BEEN PRESCRIBED AN OPIOID FOR PAIN If you have been prescribed an opioid (such as hydrocodone, oxycodone or morphine), it is critical to understand the possible side effects and risks of opioid pain medications. Even when taken as directed, opioids can have several side effects including: Tolerance, meaning you might need to take more of a medication for the same pain relief. Nausea, vomiting and/or constipation. Sleepiness, dizziness, dry mouth, confusion, depression or itching. Physical dependence, meaning you have withdrawal symptoms when a medication is stopped, can develop within a few days. KNOW YOUR RESPONSIBILITIES It is important to know exactly how much and how often to take the opioid pain medications you are prescribed. Never take opioids in higher amounts or more often than prescribed. Do not combine opioids with alcohol or other drugs that cause drowsiness, such as benzodiazepines, also known as benzos, including diazepam and alprazolam, muscle relaxants or sleep aids. Never sell or share prescription opioids. This is illegal. Store opioids in a secure place and out of reach of others (including children, family, friends and visitors). The last page of this document has been signed and retained as a CHART COPY. Signatures Patient Education Materials Thyroid Needle Biopsy, Care After Medication Leaflets My discharge plan and instructions have been reviewed and explained to me and IJOSE OPAL G understand my current condition and have read and understand these discharge instructions. I have received a written copy of the plan/instructions. If I have questions, I am aware that I should contact my doctor. Patient/Drug Safety Data Management Specialist Signature: Date/Time: Relationship to Patient: Witness Name/Signature: Date/Time: [id number] History and physical note IR PREPROCEDURE H&P UPDATE IF A HISTORY AND PHYSICAL EXAMINATION HAS BEEN COMPLETED PRIOR TO ADMISSION TO THE HOSPITAL, AN UPDATED EXAMINATION MUST BE COMPLETED AND DOCUMENTED WITHIN 24 HOURS AFTER ADMISSION OR REGISTRATION BUT BEFORE A SURGICAL PROCEDURE. I have examined the patient, reviewed the H&P, and there are no changes unless noted below: _ The most recent H&P/Office Note was performed on 02/13/2025 and can be found in the [facility] ([place]). Ricardo Dawson PA-C Interventional Radiology Pager: [phone] IR dept: x [phone] Available on [employer] Digitally Signed by RICARDO DAWSON PA-C on 02/24/2025 09:53 AM Digitally Signed by CHRISTIANO MILES MD on 02/24/2025 10:04 AM [id number] History of Present illness Narrative* Zoila Valiente APRN.NUCLEAR FUEL PROCESSING TECHNICIAN - 12/29/2024 3:30 PM EDT This video visit was performed via [employer] Video Visit. Patient consented to receive health care services via virtual visit for this encounter Provider Location: [facility] Patient Location: Patient Home or Place of Residence I have communicated my name and active licensure. The patient's identity and physical location wereverified at the time of this visit. Either the patient or their legal workforce services representative has been informed of the risks and benefits of -- and alternatives to -- treatment through a remote evaluation andconsents to proceed with the evaluation remotely. Chief Complaint: Pain History of Present Illness: Carol Ann Orellana is a 79 year old year old female being seen at [facility] for a evaluation and/or management of her chronic pain. She states that since the last visit symptoms have been persistent. Her medical history has not changed and she denies any hospital stays or ER visits. Pain Level: 6 Pain Location: (Patient-Rptd) Back-Lower Description: (Patient-Rptd) Radiating; Stiffness Duration Amount of Time: 20 Duration Units: (Patient-Rptd) Hours Frequency: (Patient-Rptd) Intermittent Intervention/Comfort measure: (Patient-Rptd) Medication; Reposition; Positioning Has the Patient Had 2 Falls in the Last Year or 1 Fall with Injury or Currently Using an AmbulatoryAssistive Device (Walker, Cane, Wheelchair, Crutches, etc.): (Patient-Rptd) No The patient denies any bowel or bladder dysfunction. The patient is currently prescribed Tramadol ER, [place], lyrica, trazodone and lidocaine cream from our office. The last dose of [place] was taken today and tramadol a long time ago. The medications arepartially effective. She denies having any side effects from the medications. PDMP website checked and validated. The OARRS report has been reviewed and is consistent with the patients medical history and medication intake. Last Opioid agreement effective date: 06/03/2024 Last UDS: Reviewed - No inconsistencies noted. 10/18/2024 UDS CONSISTENT 06/08/2024 UDS CONSISTENT 10/22/2023 UDS CONSISTENT 05/15/2023 UDS CONSISTENT Schedule after 930 am [facility] Urine Drug Screen Summary Report Date Value Ref Range Status 10/12/2024 FINAL Final Comment: Opiate Class, MS, Ur RFX Gabapentin, MS, Ur RFX Acetaminophen, MS, Ur RFX ToxAssure Flex 23, Ur Test Result Flag Units Drug Present Alpha-hydroxyalprazolam 71 ng/mg creat Alpha-hydroxyalprazolam is an expected metabolite of alprazolam. Source of alprazolam is a scheduled prescription medication. Hydrocodone 1287 ng/mg creat Hydromorphone 452 ng/mg creat Dihydrocodeine 146 ng/mg creat Norhydrocodone 2929 ng/mg creat Sources of hydrocodone include scheduled prescription medications. Hydromorphone, dihydrocodeine and norhydrocodone are expected metabolites of hydrocodone. Hydromorphone and dihydrocodeine are also available as scheduled prescription medications. Acetaminophen PRESENT Dextrorphan/Levorphanol PRESENT Dextrorphan is an expected metabolite of dextromethorphan, an tszz-eka-qfcezxk or prescription cough suppressant. Levorphanol is a scheduled prescription medication. Dextrorphan cannot be distinguished from levorphanol by the method used for analysis. Test Result Flag Units Ref Range Creatinine 52 mg/dL >=20 Declared Medications: Medication list was not provided. For clinical consultation, please call . [facility] Urine Drug Screen and Benzo Confirm Urine Panel: Lab Results Component Value Date Cannabinoid Quant, Urine <16 10/15/2023 Benzoylecgonine Quant, Urine <24 10/15/2023 6-Acetylmorphine Quant, Urine <5 10/15/2023 Amphetamine Quant, Urine <5 10/15/2023 Methamphetamine Quant, Urine <8 10/15/2023 Buprenorphine Quant, Urine <20 10/15/2023 Norbuprenorphine Quant, Urine <20 10/15/2023 Methadone Quant, Urine <16 10/15/2023 EDDP Quant, Urine <6 10/15/2023 Tramadol Quant, Urine <25 10/15/2023 Desmethyltramadol Quant, Urine <20 10/15/2023 Fentanyl Quant, Urine <6 10/15/2023 Norfentanyl Quant, Urine <6 10/15/2023 Codeine Quant, Urine <11 10/15/2023 Morphine Quant, Urine <10 10/15/2023 Dihydrocodeine Quant, Urine 479 (H) 10/15/2023 Hydrocodone Quant, Urine 1,595 (H) 10/15/2023 Oxycodone Quant, Urine <10 10/15/2023 Hydromorphone Quant, Urine 607 (H) 10/15/2023 Oxymorphone Quant, Urine <5 10/15/2023 Chronic Pain Functional Assessment Tools Pain Disability Index: 10/05/2024 12/25/2024 Pain Disability Index Family/Home Responsibilities: This category includes chores or duties performed around the house (e.g. yard work), errands or favors for other family members (e.g. driving the children to school) 0 No Disability 0 No Disability Recreation: This category includes hobbies, sports, and other similar leisure time activities 0 No disability 0 No disability Social Activity: This category refers to activities which involve participation with friends and acquaintances, other than family members. It includes parties, theater, concerts, dinning out, and other social functions 0 No disability 0 No disability Occupation: This category refers to activities that are a part of or directly related to ones' job.This includes non-paying jobs as well, such as that of a housewife or volunteer worker 0 No disability 0 No disability Sexual Behavior: This category refers to the frequency and quality of one's sex life 0 No disability 0 No disability Self Care: This category includes activities which involve personal maintenance and independent daily living (e.g. taking a shower, driving, getting dress, etc) 0 No disability 0 No disability Life Support Activity: This category refers to basic-life supporting behaviors such as eating, sleeping, and breathing 0 No disability 0 No disability PDI Score 0 0 Pain Enjoyment of Life and General Activity Scale (0-10): PEG: A Three-Item Scale Assessing Pain Intensity and Interference What number best describes your pain on average in the past week?: (Patient- Rptd) 4 (12/25/2024 12:35 PM) What number best describes how, during the past week, pain has interfered with your enjoyment of life?: (Patient-Rptd) 1 (12/25/2024 12:35 PM) What number best describes how, during the past week, pain has interfered with your general activity?: (Patient-Rptd) 1 (12/25/2024 12:35 PM) SOAPP: SOAPP QUESTIONS How often do you have mood swings?: 0 - Never (10/12/2024 9:44 AM) How often do you smoke a cigarette within an hour after you wake up?: 0 - Never (10/12/2024 9:44 AM) How often have you taken medication other than the way it was prescribed?: 0 - Never (10/12/2024 9:44 AM) How often have you used illegal drugs (for example, marijuana, cocaine, etc.) in the past five years?: 0 - Never (10/12/2024 9:44 AM) How often, in your lifetime, have you had legal problems or been arrested?: 0 - Never (10/12/2024 9:44 AM) Sum of Questions (> or = 7 is positive): 0 (10/12/2024 9:44 AM) REVIEW OF SYSTEMS: GENERAL: No weight loss or fevers RESPIRATORY: Negative for cough CARDIOVASCULAR: Negative for chest pain GI: No nausea, vomiting, or diarrhea. MUSCULOSKELETAL: back pain and muscle pain PAST MEDICAL HISTORY Diagnosis Date Bladder infection Breast cancer (HCC) GERD (gastroesophageal reflux disease) Kidney stones Leg pain Migraines Neurogenic bladder Osteoarthrosis, unspecified whether generalized or localized, other specified sites Osteoporosis Other and unspecified disc disorder of unspecified region Intervertebral disc disorders DIAMOND (stress urinary incontinence, female) Thyroid disease Urethral hypermobility Urge incontinence Urgency of urination PAST SURGICAL HISTORY Procedure Laterality Date ANESTHESIA TOTAL KNEE REPLACEMENT APPENDECTOMY 08/1961 ARTHROTOMY KNEE W/SYNOVIAL BIOPSY ONLY Semilunar cartilage, knee - right BACK SURGERY HX 2010 BLADDER SURGERY HX 2012 BREAST SURGERY HX Right 2018 breast and 3 lymph nodes removed CARPAL TUNNEL Left 12/1979 CATARACT EXTRACTION HX CATARACT EXTRACTION HX 2009 CHOLECYSTECTOMY ELBOW SURGERY HX Left 1994 EXPLORATORY LAPAROTOMY CELIOTOMY W/WO BIOPSY SPX Laparotomy, exp - lysis of adhesions HAND SURGERY HX Right 1989 KNEE SURGERY HX Right removal of meniscus LX EXCISION OF BLADDER TUMOR 1979, 1983 OOPHORECTOMY PARTIAL/TOTAL UNI/BI Oophorectomy TOTAL ABDOMINAL HYSTERECT W/WO RMVL TUBE OVARY Hysterectomy, TOTAL KNEE REPLACEMENT 2009 FAMILY HISTORY Problem Relation Age of Onset Diabetes Mother Stroke Mother Hypertension Mother Heart Father Hypertension Father Heart disease Brother Diabetes Brother Social History Tobacco Use Smoking status: Former Current packs/day: 0.00 Types: Cigarettes Start date: 1967 Quit date: 1982 Years since quittin.3 Smokeless tobacco: Never Substance Use Topics Alcohol use: No Drug use: No Allergies: Oxycodone-Acetamino* Other: See Comments Cortisone Doxycycline Unknown Iv Dye [Iodinated C* Rash Montelukast Unknown, Rash Oxycodone Unknown Sulfa (Sulfonamide * Latex Rash Current Outpatient Medications Medication Sig metoclopramide HCl (REGLAN) 10 mg tablet TAKE 1 TABLET Oral 30 minutes prior to a meal prochlorperazine (COMPAZINE) 5 mg tablet TAKE 1 TABLET BY MOUTH THREE TIMES DAILY NEEDED FOR NAUSEA AND VOMITING ramelteon (ROZEREM) 8 mg tablet take 1 tablet oral at bedtime hydrALAZINE (APRESOLINE) 25 mg tablet Take 25 mg by mouth daily at bedtime. pantoprazole DR (PROTONIX) 40 mg tablet Take 40 mg by mouth two times a day. cycloSPORINE 0.05 % drop Use 1 Drop in both eyes two times a day. HYDROcodone-Acetaminophen (NORCO) 10-325 mg per tablet Take 1 tablet by mouth every 6 hours as needed for pain for up to 30 days. Patient should start on November 10, 2024. HYDROcodone-Acetaminophen (NORCO) 10-325 mg per tablet Take 1 tablet by mouth every 6 hours as needed for pain for up to 30 days. Patient should start on December 10, 2024. Metaxalone 400 mg tab Take 0.5-1 tablets by mouth three times a day as needed (pain/). Pregabalin (LYRICA) 200 mg capsule Take 1 capsule by mouth three times a day for 30 days. Patient should start on November 04, 2024. traMADol 100 mg 24 hr tablet Take 1 tablet by mouth once daily for 30 days. traZODone (DESYREL) 100 mg tablet Take 1 tablet by mouth daily at bedtime. lidocaine (LIDODERM) 5 % Apply 1 Patch as directed every 24 hours. lidocaine (XYLOCAINE) 5 % ointment Apply to affected area four times a day as needed (pain). apixaban (ELIQUIS) 5 mg tab(s) Take 5 mg by mouth. methylPREDNISolone (MEDROL DOSE-PACK) 4 mg Dose-Pack Take 1 tablet by mouth as directed. As Instructed per package MEDICATION, NON-DATABASE Apply 1 Each to affected area once daily. Cervical Traction Device losartan (COZAAR) 50 mg tablet 50 mg twice daily. nebivolol (BYSTOLIC) 10 mg tablet Take 10 mg by mouth once daily. ondansetron orally disintegrating (ZOFRAN ODT) 4 mg disintegrating tablet Take 4 mg by mouth every 6 hours as needed. For Nausea ondansetron (ZOFRAN) 4 mg tablet TAKE 1 TABLET BY MOUTH EVERY 6 HOURS NEEDED FOR NAUSEA OR FOR VOMITING omeprazole (PRILOSEC) 20 mg capsule TAKE 1 CAPSULE BY MOUTH DAILY ON AN EMPTY STOMACH QVAR REDIHALER 80 mcg/actuation inhaler INHALE 2 PUFFS BY MOUTH and into the lungs TWICE DAILY aspirin, enteric coated (ASPIRIN, ENTERIC COATED) 81 mg EC tablet 81 mg. albuterol HFA (PROVENTIL HFA, VENTOLIN HFA) 90 mcg/actuation inhaler INHALE 2 PUFFS BY MOUTH and into the lungs FOUR TIMES DAILY NEEDED furosemide (LASIX) 40 mg tablet 40 mg. ALPRAZolam (XANAX) 1 mg tablet Take 1 mg by mouth three times daily. mv, min #36-iron,carbonyl-FA (GERITOL COMPLETE) 16 mg iron- 0.38 mg tab Geritol Complete 16 mg iron- 0.38 mg tablet lidocaine-prilocaine (EMLA) 2.5-2.5 % cream 1-2 g as needed. furosemide (LASIX) 20 mg tablet Take 20 mg by mouth as needed. iron/vitamin B complex (GERITOL ORAL) Take by mouth. tolterodine ER (DETROL LA) 4 mg 24 hr capsule Take 1 capsule by mouth once daily. lidocaine-methyl lisa-menthol 5-10-3 % ktop lidocaine 5 % oint fluticasone (FLOVENT) 220 mcg/actuation inhaler flovent hfa 220 mcg/act aero methylphenidate (RITALIN) 20 mg tablet Take 20 mg by mouth twice daily. levothyroxine (SYNTHROID) 50 mcg tablet Take 50 mcg by mouth daily before breakfast. ergocalciferol 50,000 unit capsule (VITAMIN D2, DRISDOL) Take 50,000 Units by mouth once each week. meclizine (ANTIVERT) 25 mg tab Take 25 mg by mouth as needed. For dizziness No current facility-administered medications for this visit. PHYSICAL EXAMINATION: There were no vitals taken for this visit. GENERAL: alert and appropriate, in no distress and well-hydrated, well nourished HEAD: normocephalic, no abnormality or lesion noted RESPIRATORY: breathing non-labored NEUROLOGIC: no obvious deficit ASSESSMENT: Patient is stable. Chronic pain is persistent. Medications are helping Carol Ann Orellana to have an improved quality of life. Patient compliance with Opioid Contract: patient is compliant Encounter Diagnosis ICD-10-CM 1. Other chronic pain G89.29 2. Postherpetic neuralgia B02.29 3. 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 Neck pain M54.2 PLAN: She has stopped the xanax. She is having difficulty sleeping since it was stopped. The patient understands the goal of our treatment is a reduction in pain and/or an improved level of functioning with activities of daily living. If at any time the patient does not feel the medications are helping them to achieve these goals, the medications may be discontinued. The patient reports a reduction in pain and/or an improved level of functioning with activities of daily living, denies any significant adverse effects, is compliant with the pain management agreement and there are no signs of medication misuse, abuse or diversion; therefore, the medications will be continued. Continue [place] Continue tramadol ER A prescription for narcan (naloxone) has been offered to the patient. Continue Lyrica - Continue Lidocaine ointment/patches Continue trazodone - increase to 150 Continue OTC stool softeners and Colace Pt is declining procedures at this time Continue care with PCP and specialists Follow up in 2 months Zoila Valiente APRN.CNP [facility]25 NoteHNO ID: [id number] Author: ZOILA VALIENTE APRN.CNP Service: ? Author Type: Nurse Practitioner Type: Progress Notes Filed: 12/29/2024 14:42 Note Text: This video visit was performed via [employer] Video Visit. Patient consented to receive health care services via virtual visit for this encounter Provider Location: [facility] Patient Location: Patient Home or Place of Residence I have communicated my name and active licensure. The patient's identity and physical location were verified at the time of this visit. Either the patient or their legal workforce services representative has been informed of the risks and benefits of -- and alternatives to -- treatment through a remote evaluation and consents to proceed with the evaluation remotely. Chief Complaint: Pain History of Present Illness: Carol Ann Orellana is a 79 year old year old female being seen at [facility] for a evaluation and/or management of her chronic pain. She states that since the last visit symptoms have been persistent. Her medical history has not changed and she denies any hospital stays or ER visits. Pain Level: 6 Pain Location: (Patient-Rptd) Back-Lower Description: (Patient-Rptd) Radiating; Stiffness Duration Amount of Time: 20 Duration Units: (Patient-Rptd) Hours Frequency: (Patient-Rptd) Intermittent Intervention/Comfort measure: (Patient-Rptd) Medication; Reposition; Positioning Has the Patient Had 2 Falls in the Last Year or 1 Fall with Injury or Currently Using an Ambulatory Assistive Device (Walker, Cane, Wheelchair, Crutches, etc.): (Patient-Rptd) No The patient denies any bowel or bladder dysfunction. The patient is currently prescribed Tramadol ER, [place], lyrica, trazodone and lidocaine cream from our office. The last dose of [place] was taken today and tramadol a long time ago. The medications are partially effective. She denies having any side effects from the medications. PDMP website checked and validated. The OARRS report has been reviewed and is consistent with the patients medical history and medication intake. Last Opioid agreement effective date: 06/03/2024 Last UDS: Reviewed - No inconsistencies noted. 10/18/2024 UDS CONSISTENT 06/08/2024 UDS CONSISTENT 10/22/2023 UDS CONSISTENT 05/15/2023 UDS CONSISTENT Schedule after 930 am [facility] Urine Drug Screen Summary Report Date Value Ref Range Status 10/12/2024 FINAL Final Comment: Opiate Class, MS, Ur RFX Gabapentin, MS, Ur RFX Acetaminophen, MS, Ur RFX ToxAssure Flex 23, Ur Test Result Flag Units Drug Present Alpha-hydroxyalprazolam 71 ng/mg creat Alpha-hydroxyalprazolam is an expected metabolite of alprazolam. Source of alprazolam is a scheduled prescription medication. Hydrocodone 1287 ng/mg creat Hydromorphone 452 ng/mg creat Dihydrocodeine 146 ng/mg creat Norhydrocodone 2929 ng/mg creat Sources of hydrocodone include scheduled prescription medications. Hydromorphone, dihydrocodeine and norhydrocodone are expected metabolites of hydrocodone. Hydromorphone and dihydrocodeine are also available as scheduled prescription medications. Acetaminophen PRESENT Dextrorphan/Levorphanol PRESENT Dextrorphan is an expected metabolite of dextromethorphan, an [id number] or prescription cough suppressant. Levorphanol is a scheduled prescription medication. Dextrorphan cannot be distinguished from levorphanol by the method used for analysis. Test Result Flag Units Ref Range Creatinine 52 mg/dL >=20 Declared Medications: Medication list was not provided. For clinical consultation, please call . [facility] Urine Drug Screen and Benzo Confirm Urine Panel: Lab Results Component Value Date Cannabinoid Quant, Urine <16 10/15/2023 Benzoylecgonine Quant, Urine <24 10/15/2023 6-Acetylmorphine Quant, Urine <5 10/15/2023 Amphetamine Quant, Urine <5 10/15/2023 Methamphetamine Quant, Urine <8 10/15/2023 Buprenorphine Quant, Urine <20 10/15/2023 Norbuprenorphine Quant, Urine <20 10/15/2023 Methadone Quant, Urine <16 10/15/2023 EDDP Quant, Urine <6 10/15/2023 Tramadol Quant, Urine <25 10/15/2023 Desmethyltramadol Quant, Urine <20 10/15/2023 Fentanyl Quant, Urine <6 10/15/2023 Norfentanyl Quant, Urine <6 10/15/2023 Codeine Quant, Urine <11 10/15/2023 Morphine Quant, Urine <10 10/15/2023 Dihydrocodeine Quant, Urine 479 (H) 10/15/2023 Hydrocodone Quant, Urine 1,595 (more content not included)...[facility]04-16-2025 Instructions* Patient Instructions* Zoila Valiente APRN.NUCLEAR FUEL PROCESSING TECHNICIAN - 12/28/2024 11:56 AM EDT She has stopped the xanax. Despite its legality, THC containing products and CBD products that may contain THC are not to be used while being prescribed pain medications. If your drug screen contains any THC your medication will be discontinued. Continue [place] Continue tramadol ER A prescription for narcan (naloxone) has been offered to the patient. Continue Lyrica - Continue Lidocaine ointment/patches Continue trazodone - increase to 150 Continue OTC stool softeners and Colace Pt is declining procedures at this time Continue care with PCP and specialists Follow up in 2 months [facility]-30-[facility] Note* Exam Date Time Procedure Performing Provider Status 10/13/24 1:32 PM XR Upper GI w/ Air Contrast DERIAN DOWNING MD; Auth (Verified) [id number] ORIGINAL EXAMINATION: DOUBLE CONTRAST UPPER GI SERIES 10/13/2024 TECHNIQUE: Double contrast upper GI series was performed with barium and air contrast. FLUOROSCOPY DOSE AND TYPE: Radiation Exposure Index: Kerma mGy, 75.6. 1.4 minutes of fluoroscopy time was utilized. 39 images were obtained. COMPARISON: None HISTORY: ORDERING SYSTEM PROVIDED HISTORY: Reason for Exam: uncontrolled GERD on PPI Pt c/o burning epigastric pain with meals x6 months. Difficulty swallowing pills at times. FINDINGS: The esophagus is of normal caliber and demonstrates mild esophageal dysmotility. The barium tablet passed normally into the stomach.. There are no mucosal abnormalities seen. The gastroesophageal junction is normal. There is mild, spontaneous esophageal reflux The stomach is normal in appearance with no evidence for mass present. The duodenal bulb and sweep are normal. IMPRESSION: Mild esophageal dysmotility and reflux, otherwise unremarkable upper GI series. Interpreted by: Derian Downing MD Preliminary Report By: Derian Downing MD Electronically signed By Derian Downing MD Dictated Date: 10/13/2024 4:40:21 PM Prelim Date: 10/13/2024 4:45:31 PM Sign Date: 10/13/2024 4:45:31 PM Ordering Provider: [facility] [address]01-29-2025 History of Present illness Narrative * Zoila Valiente APRN.NUCLEAR FUEL PROCESSING TECHNICIAN - 10/12/2024 10:30 AM EST Chief Complaint: Pain History of Present Illness: Carol Ann Orellana is a 79 year old year old female being seen at [facility] for a evaluation and/or management of her chronic pain. The patient was last seen on 08/04/2024. She states that since the last visit symptoms have been stable. She has stopped the xanax. She is having difficulty sleeping since it was stopped. They prescribed trazodone 50 mg but it is not helping. Her medical history has not changed and she denies any hospital stays or ER visits. Pain Location: lower back -mid back, right leg pain, left shoulder, neck Radiation: arms and legs Character: aching Intensity: 6/10 Numbness/tingling: legs, left hand Burning: occasionally feet Weakness: arms Falls: denies Worsening factors: physical activity and cold weather Relieving factors: rest and medication Patient denies any bowel or bladder dysfunction. The patient is currently prescribed Tramadol ER, [place], lyrica and lidocaine cream from our office.The last dose of [place] was taken today and tramadol a long time ago. The medications are partially effective. PDMP website checked and validated. The OARRS report has been reviewed and is consistent with the patients medical history and medication intake. Last Opioid agreement effective date: 06/03/2024 Last UDS: Reviewed - No inconsistencies noted. 06/08/2024 UDS CONSISTENT 10/22/2023 UDS CONSISTENT 05/15/2023 UDS CONSISTENT Schedule after 930 am [facility] Summary Report Date Value Ref Range Status 06/03/2024 FINAL Final Comment: Opiate Class, MS, Ur RFX Acetaminophen, MS, Ur RFX ToxAssure Flex 23, Ur Test Result Flag Units Drug Present Alprazolam 118 ng/mg creat Alpha-hydroxyalprazolam 157 ng/mg creat Source of alprazolam is a scheduled prescription medication. Alpha-hydroxyalprazolam is an expected metabolite of alprazolam. Hydrocodone 1498 ng/mg creat Hydromorphone 868 ng/mg creat Dihydrocodeine 161 ng/mg creat Norhydrocodone 3030 ng/mg creat Sources of hydrocodone include scheduled prescription medications. Hydromorphone, dihydrocodeine and norhydrocodone are expected metabolites of hydrocodone. Hydromorphone and dihydrocodeine are also available as scheduled prescription medications. Acetaminophen PRESENT Dextrorphan/Levorphanol PRESENT Dextrorphan is an expected metabolite of dextromethorphan, an rtph-dmj-soqxigh or prescription cough suppressant. Levorphanol is a scheduled prescription medication. Dextrorphan cannot be distinguished from levorphanol by the method used for analysis. Test Result Flag Units Ref Range Creatinine 44 mg/dL >=20 Declared Medications: Medication list was not provided. For clinical consultation, please call . Urine Panel: Lab Results Component Value Date Cannabinoid Quant, Urine <16 10/15/2023 Benzoylecgonine Quant, Urine <24 10/15/2023 6-Acetylmorphine Quant, Urine <5 10/15/2023 Amphetamine Quant, Urine <5 10/15/2023 Methamphetamine Quant, Urine <8 10/15/2023 Buprenorphine Quant, Urine <20 10/15/2023 Norbuprenorphine Quant, Urine <20 10/15/2023 Methadone Quant, Urine <16 10/15/2023 EDDP Quant, Urine <6 10/15/2023 Tramadol Quant, Urine <25 10/15/2023 Desmethyltramadol Quant, Urine <20 10/15/2023 Fentanyl Quant, Urine <6 10/15/2023 Norfentanyl Quant, Urine <6 10/15/2023 Codeine Quant, Urine <11 10/15/2023 Morphine Quant, Urine <10 10/15/2023 Dihydrocodeine Quant, Urine 479 (H) 10/15/2023 Hydrocodone Quant, Urine 1,595 (H) 10/15/2023 Oxycodone Quant, Urine <10 10/15/2023 Hydromorphone Quant, Urine 607 (H) 10/15/2023 Oxymorphone Quant, Urine <5 10/15/2023 No results found for: "SUMMAR" Chronic Pain Functional Assessment Tools Pain Disability Index: 08/02/2024 10/05/2024 Pain Disability Index Family/Home Responsibilities: This category includes chores or duties performed around the house (e.g. yard work), errands or favors for other family members (e.g. driving the children to school) 0 No Disability 0 No Disability Recreation: This category includes hobbies, sports, and other similar leisure time activities 0 No disability 0 No disability Social Activity: This category refers to activities which involve participation with friends and acquaintances, other than family members. It includes parties, theater, concerts, dinning out, and other social functions 0 No disability 0 No disability Occupation: This category refers to activities that are a part of or directly related to ones' job.This includes non-paying jobs as well, such as that of a housewife or volunteer worker 0 No disability 0 No disability Sexual Behavior: This category refers to the frequency and quality of one's sex life 0 No disability 0 No disability Self Care: This category includes activities which involve personal maintenance and independent daily living (e.g. taking a shower, driving, getting dress, etc) 0 No disability 0 No disability Life Support Activity: This category refers to basic-life supporting behaviors such as eating, sleeping, and breathing 0 No disability 0 No disability PDI Score 0 0 Pain Enjoyment of Life and General Activity Scale (0-10): PEG: A Three-Item Scale Assessing Pain Intensity and Interference What number best describes your pain on average in the past week?: 4 (10/05/2024 3:50 PM) What number best describes how, during the past week, pain has interfered with your enjoyment of life?: 5 (10/05/2024 3:50 PM) What number best describes how, during the past week, pain has interfered with your general activity?: 5 (10/05/2024 3:50 PM) Screener and Opioid Assessment for Patients with Pain (SOAPP)-5 SOAPP QUESTIONS How often do you have mood swings?: 0 - Never (10/12/2024 9:44 AM) How often do you smoke a cigarette within an hour after you wake up?: 0 - Never (10/12/2024 9:44 AM) How often have you taken medication other than the way it was prescribed?: 0 - Never (10/12/2024 9:44 AM) How often have you used illegal drugs (for example, marijuana, cocaine, etc.) in the past five years?: 0 - Never (10/12/2024 9:44 AM) How often, in your lifetime, have you had legal problems or been arrested?: 0 - Never (10/12/2024 9:44 AM) Sum of Questions (> or = 7 is positive): 0 (10/12/2024 9:44 AM) REVIEW OF SYSTEMS: GENERAL: No weight loss or fevers RESPIRATORY: Negative for cough CARDIOVASCULAR: Negative for chest pain GI: No nausea, vomiting, or diarrhea. MUSCULOSKELETAL: back pain and muscle pain PAST MEDICAL HISTORY Diagnosis Date Bladder infection Breast cancer (HCC) GERD (gastroesophageal reflux disease) Kidney stones Leg pain Migraines Neurogenic bladder Osteoarthrosis, unspecified whether generalized or localized, other specified sites Osteoporosis Other and unspecified disc disorder of unspecified region Intervertebral disc disorders DIAMOND (stress urinary incontinence, female) Thyroid disease Urethral hypermobility Urge incontinence Urgency of urination PAST SURGICAL HISTORY Procedure Laterality Date ANESTHESIA TOTAL KNEE REPLACEMENT APPENDECTOMY 08/1961 ARTHROTOMY KNEE W/SYNOVIAL BIOPSY ONLY Semilunar cartilage, knee - right BACK SURGERY HX 2011 BLADDER SURGERY HX 2012 BREAST SURGERY HX Right 2018 breast and 3 lymph nodes removed CARPAL TUNNEL Left 12/1979 CATARACT EXTRACTION HX CATARACT EXTRACTION HX 2009 CHOLECYSTECTOMY ELBOW SURGERY HX Left 1994 EXPLORATORY LAPAROTOMY CELIOTOMY W/WO BIOPSY SPX Laparotomy, exp - lysis of adhesions HAND SURGERY HX Right 1989 KNEE SURGERY HX Right removal of meniscus LX EXCISION OF BLADDER TUMOR 1979, 1983 OOPHORECTOMY PARTIAL/TOTAL UNI/BI Oophorectomy TOTAL ABDOMINAL HYSTERECT W/WO RMVL TUBE OVARY Hysterectomy, TOTAL KNEE REPLACEMENT 2009 FAMILY HISTORY Problem Relation Age of Onset Diabetes Mother Stroke Mother Hypertension Mother Heart Father Hypertension Father Heart disease Brother Diabetes Brother Social History Tobacco Use Smoking status: Former Current packs/day: 0.00 Types: Cigarettes Start date: 1967 Quit date: 1982 Years since quittin.1 Smokeless tobacco: Never Substance Use Topics Alcohol use: No Drug use: No Allergies: Oxycodone-Acetamino* Other: See Comments Cortisone Doxycycline Unknown Iv Dye [Iodinated C* Rash Montelukast Unknown, Rash Oxycodone Unknown Sulfa (Sulfonamide * Latex Rash Current Outpatient Medications Medication Sig HYDROcodone-Acetaminophen (NORCO) 10-325 mg per tablet Take 1 tablet by mouth every 6 hours as needed for pain for up to 30 days. HYDROcodone-Acetaminophen (NORCO) 10-325 mg per tablet Take 1 tablet by mouth every 6 hours as needed for pain for up to 30 days. Patient should start on September 06, 2024. lidocaine (LIDODERM) 5 % Apply 1 Patch as directed every 24 hours. lidocaine (XYLOCAINE) 5 % ointment Apply to affected area four times a day as needed (pain). Pregabalin (LYRICA) 200 mg capsule Take 1 capsule by mouth three times a day for 30 days. Patient should start on August 07, 2024. apixaban (ELIQUIS) 5 mg tab(s) Take 5 mg by mouth. Metaxalone 400 mg tab Take 0.5-1 tablets by mouth three times a day as needed (pain/). methylPREDNISolone (MEDROL DOSE-PACK) 4 mg Dose-Pack Take 1 tablet by mouth as directed. As Instructed per package MEDICATION, NON-DATABASE Apply 1 Each to affected area once daily. Cervical Traction Device losartan (COZAAR) 50 mg tablet 50 mg twice daily. hydrALAZINE (APRESOLINE) 10 mg tablet TAKE 1 TABLET BY MOUTH FOUR TIMES DAILY NEEDED IF SBP >160 FOR 30 DAYS nebivolol (BYSTOLIC) 10 mg tablet Take 10 mg by mouth once daily. ondansetron orally disintegrating (ZOFRAN ODT) 4 mg disintegrating tablet Take 4 mg by mouth every 6 hours as needed. For Nausea ondansetron (ZOFRAN) 4 mg tablet TAKE 1 TABLET BY MOUTH EVERY 6 HOURS NEEDED FOR NAUSEA OR FOR VOMITING omeprazole (PRILOSEC) 20 mg capsule TAKE 1 CAPSULE BY MOUTH DAILY ON AN EMPTY STOMACH QVAR REDIHALER 80 mcg/actuation inhaler INHALE 2 PUFFS BY MOUTH and into the lungs TWICE DAILY aspirin, enteric coated (ASPIRIN, ENTERIC COATED) 81 mg EC tablet 81 mg. albuterol HFA (PROVENTIL HFA, VENTOLIN HFA) 90 mcg/actuation inhaler INHALE 2 PUFFS BY MOUTH and into the lungs FOUR TIMES DAILY NEEDED furosemide (LASIX) 40 mg tablet 40 mg. ALPRAZolam (XANAX) 1 mg tablet Take 1 mg by mouth three times daily. mv, min #36-iron,carbonyl-FA (GERITOL COMPLETE) 16 mg iron- 0.38 mg tab Geritol Complete 16 mg iron- 0.38 mg tablet lidocaine-prilocaine (EMLA) 2.5-2.5 % cream 1-2 g as needed. furosemide (LASIX) 20 mg tablet Take 20 mg by mouth as needed. iron/vitamin B complex (GERITOL ORAL) Take by mouth. tolterodine ER (DETROL LA) 4 mg 24 hr capsule Take 1 capsule by mouth once daily. lidocaine-methyl lisa-menthol 5-10-3 % ktop lidocaine 5 % oint fluticasone (FLOVENT) 220 mcg/actuation inhaler flovent hfa 220 mcg/act aero methylphenidate (RITALIN) 20 mg tablet Take 20 mg by mouth twice daily. levothyroxine (SYNTHROID) 50 mcg tablet Take 50 mcg by mouth daily before breakfast. ergocalciferol 50,000 unit capsule (VITAMIN D2, DRISDOL) Take 50,000 Units by mouth once each week. meclizine (ANTIVERT) 25 mg tab Take 25 mg by mouth as needed. For dizziness No current facility-administered medications for this visit. PHYSICAL EXAMINATION: BP 151/84 (BP Site: Left Arm, BP Position: Sitting) Pulse 60 Resp 20 Wt 67.4 kg (148 lb 9.6 oz) SpO2 96% BMI 28.08 kg/m GENERAL: alert and appropriate, in no distress and well-hydrated, well nourished HEAD: normocephalic, no abnormality or lesion noted RESPIRATORY: breathing non-labored NEUROLOGIC: no obvious deficit MUSCULOSKELETAL: Steady gait, able to ascend/descend from the chair without difficulty ASSESSMENT: Patient is stable. Chronic pain is persistent. Medications are helping Carol Ann Orellana to have an improved quality of life. Patient compliance with Opioid Contract: patient is compliant Encounter Diagnosis ICD-10-CM 1. Other chronic pain G89.29 2. 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 Neck pain M54.2 5. Lumbar radiculopathy M54.16 6. Chronic left shoulder pain M25.512 G89.29 7. 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 She has stopped the xanax. She is having difficulty sleeping since it was stopped. Advised to try taking 100 mg trazodone The patient understands the goal of our treatment is a reduction in pain and/or an improved level of functioning with activities of daily living. If at any time the patient does not feel the medications are helping them to achieve these goals, the medications may be discontinued. The patient reports a reduction in pain and/or an improved level of functioning with activities of daily living, denies any significant adverse effects, is compliant with the pain management agreement and there are no signs of medication misuse, abuse or diversion; therefore, the medications will be continued. Continue [place] Continue tramadol ER very sparingly She was started on this medication and has been maintained on it by Dr Dawson and [employer] working with her. A prescription for narcan (naloxone) has been offered to the patient. Continue Lyrica - Pt is declining procedures at this time Continue Lidocaine ointment Continue Lidocaine patches Continue OTC stool softeners and Colace Continue LB brace Continue metaxalone She went to therapy from 04/14/23 to 04/29/23 then was d/c to complete exercises at home Continue care with PCP and specialists Consider referral to Dr Lomas for surgical opinion Follow up in 2 months Zoila Valiente APRN.CNP documented in this encounterSum[facility]01-29-2025 NoteHNO ID: [id number] Author: ZOILA VALIENTE APRN.CNP Service: ? Author Type: Nurse Practitioner Type: Progress Notes Filed: 10/12/2024 10:19 Note Text: Chief Complaint: Pain History of Present Illness: Carol Ann Orellana is a 79 year old year old female being seen at [facility] for a evaluation and/or management of her chronic pain. The patient was last seen on 08/04/2024. She states that since the last visit symptoms have been stable. She has stopped the xanax. She is having difficulty sleeping since it was stopped. They prescribed trazodone 50 mg but it is not helping. Her medical history has not changed and she denies any hospital stays or ER visits. Pain Location: lower back -mid back, right leg pain, left shoulder, neck Radiation: arms and legs Character: aching Intensity: 6/10 Numbness/tingling: legs, left hand Burning: occasionally feet Weakness: arms Falls: denies Worsening factors: physical activity and cold weather Relieving factors: rest and medication Patient denies any bowel or bladder dysfunction. The patient is currently prescribed Tramadol ER, [place], lyrica and lidocaine cream from our office. The last dose of [place] was taken today and tramadol a long time ago. The medications are partially effective. PDMP website checked and validated. The OARRS report has been reviewed and is consistent with the patients medical history and medication intake. Last Opioid agreement effective date: 06/03/2024 Last UDS: Reviewed - No inconsistencies noted. 06/08/2024 UDS CONSISTENT 10/22/2023 UDS CONSISTENT 05/15/2023 UDS CONSISTENT Schedule after 930 am luis alberto breaux Summary Report Date Value Ref Range Status 06/03/2024 FINAL Final Comment: Opiate Class, MS, Ur RFX Acetaminophen, MS, Ur RFX ToxAssure Flex 23, Ur Test Result Flag Units Drug Present Alprazolam 118 ng/mg creat Alpha-hydroxyalprazolam 157 ng/mg creat Source of alprazolam is a scheduled prescription medication. Alpha-hydroxyalprazolam is an expected metabolite of alprazolam. Hydrocodone 1498 ng/mg creat Hydromorphone 868 ng/mg creat Dihydrocodeine 161 ng/mg creat Norhydrocodone 3030 ng/mg creat Sources of hydrocodone include scheduled prescription medications. Hydromorphone, dihydrocodeine and norhydrocodone are expected metabolites of hydrocodone. Hydromorphone and dihydrocodeine are also available as scheduled prescription medications. Acetaminophen PRESENT Dextrorphan/Levorphanol PRESENT Dextrorphan is an expected metabolite of dextromethorphan, an cvdz-lnz-kpvlyfo or prescription cough suppressant. Levorphanol is a scheduled prescription medication. Dextrorphan cannot be distinguished from levorphanol by the method used for analysis. Test Result Flag Units Ref Range Creatinine 44 mg/dL >=20 Declared Medications: Medication list was not provided. For clinical consultation, please call . Urine Panel: Lab Results Component Value Date Cannabinoid Quant, Urine <16 10/15/2023 Benzoylecgonine Quant, Urine <24 10/15/2023 6-Acetylmorphine Quant, Urine <5 10/15/2023 Amphetamine Quant, Urine <5 10/15/2023 Methamphetamine Quant, Urine <8 10/15/2023 Buprenorphine Quant, Urine <20 10/15/2023 Norbuprenorphine Quant, Urine <20 10/15/2023 Methadone Quant, Urine <16 10/15/2023 EDDP Quant, Urine <6 10/15/2023 Tramadol Quant, Urine <25 10/15/2023 Desmethyltramadol Quant, Urine <20 10/15/2023 Fentanyl Quant, Urine <6 10/15/2023 Norfentanyl Quant, Urine <6 10/15/2023 Codeine Quant, Urine <11 10/15/2023 Morphine Quant, Urine <10 10/15/2023 Dihydrocodeine Quant, Urine 479 (H) 10/15/2023 Hydrocodone Quant, Urine 1,595 (H) 10/15/2023 Oxycodone Quant, Urine <10 10/15/2023 Hydromorphone Quant, Urine 607 (H) 10/15/2023 Oxymorphone Quant, Urine <5 10/15/2023 No results found for: "SUMMAR" Chronic Pain Functional Assessment Tools Pain Disability Index: 08/02/2024 10/05/2024 Pain Disability Index Family/Home Responsibilities: This category includes chores or duties performed around the house (e.g. yard work), errands or favors for other family members (e.g. driving the children to school) 0 No Disability 0 No Disability Recreation: This category includes hobbies, sports, and other similar leisure time activities 0 No disability 0 No disability Social Activity: This category refers to activities which involve participation with friends and acqua (more content not included)...[facility] 10-11-2024 Instructions* Patient Instructions* Zolia Valiente APRN.CNP - 10/11/2024 9:50 AM EST She has stopped the xanax. She is having difficulty sleeping since it was stopped. Advised to try taking 100 mg trazodone Despite its legality, THC containing products and CBD products that may contain THC are not to be used while being prescribed pain medications. If your drug screen contains any THC your medication will be discontinued. Continue [place] Continue tramadol ER very sparingly - She was started on this medication and has been maintained on it by Dr Dawson and [employer] working with her. A prescription for narcan (naloxone) has been offered to the patient. Continue Lyrica - Pt is declining procedures at this time Continue Lidocaine ointment Continue Lidocaine patches Continue OTC stool softeners and Colace Continue LB brace Continue metaxalone She went to therapy from 04/14/23 to 04/29/23 then was d/c to complete exercises at home Continue care with PCP and specialists Consider referral to Dr Lomas for surgical opinion Follow up in 2 months documented in this encounterSumma Health01-27-2025 Telephone encounter Note * Telephone Encounter - Ariadna Huerta RN - 10/10/2024 9:03 AM EST Patient phones requesting refills as follows: Requested Prescriptions Pending Prescriptions Disp Refills HYDROcodone-Acetaminophen (NORCO) 10-325 mg per tablet 120 tablet 0 Sig: Take 1 tablet by mouth every 6 hours as needed for pain for up to 30 days. Last UDS: 06/08/2024 UDS CONSISTENT 10/22/2023 UDS CONSISTENT 05/15/2023 UDS CONSISTENT Schedule after 930 am burr [place] Summary Report Date Value Ref Range Status 06/03/2024 FINAL Final Comment: Opiate Class, MS, Ur RFX Acetaminophen, MS, Ur RFX ToxAssure Flex 23, Ur Test Result Flag Units Drug Present Alprazolam 118 ng/mg creat Alpha-hydroxyalprazolam 157 ng/mg creat Source of alprazolam is a scheduled prescription medication. Alpha-hydroxyalprazolam is an expected metabolite of alprazolam. Hydrocodone 1498 ng/mg creat Hydromorphone 868 ng/mg creat Dihydrocodeine 161 ng/mg creat Norhydrocodone 3030 ng/mg creat Sources of hydrocodone include scheduled prescription medications. Hydromorphone, dihydrocodeine and norhydrocodone are expected metabolites of hydrocodone. Hydromorphone and dihydrocodeine are also available as scheduled prescription medications. Acetaminophen PRESENT Dextrorphan/Levorphanol PRESENT Dextrorphan is an expected metabolite of dextromethorphan, an dtgn-dnt-gqsmvxy or prescription cough suppressant. Levorphanol is a scheduled prescription medication. Dextrorphan cannot be distinguished from levorphanol by the method used for analysis. Test Result Flag Units Ref Range Creatinine 44 mg/dL >=20 Declared Medications: Medication list was not provided. For clinical consultation, please call . Note,Ur Pain Marinelli Date Value Ref Range Status 10/15/2023 Final Comment: This test is for medical use only. This test was developed and its performance characteristics determined by [facility] [place] ([facility] It has not been cleared or approved by the FDA. [facility] is regulated under CLIA as qualified to perform high-complexity testing. Thistest is used for clinical purposes. It should not be regarded as investigational or for research. Urine Panel: Lab Results Component Value Date Cannabinoid Quant, Urine <16 10/15/2023 Benzoylecgonine Quant, Urine <24 10/15/2023 6-Acetylmorphine Quant, Urine <5 10/15/2023 Amphetamine Quant, Urine <5 10/15/2023 Methamphetamine Quant, Urine <8 10/15/2023 Buprenorphine Quant, Urine <20 10/15/2023 Norbuprenorphine Quant, Urine <20 10/15/2023 Methadone Quant, Urine <16 10/15/2023 EDDP Quant, Urine <6 10/15/2023 Tramadol Quant, Urine <25 10/15/2023 Desmethyltramadol Quant, Urine <20 10/15/2023 Fentanyl Quant, Urine <6 10/15/2023 Norfentanyl Quant, Urine <6 10/15/2023 Codeine Quant, Urine <11 10/15/2023 Morphine Quant, Urine <10 10/15/2023 Dihydrocodeine Quant, Urine 479 (H) 10/15/2023 Hydrocodone Quant, Urine 1,595 (H) 10/15/2023 Oxycodone Quant, Urine <10 10/15/2023 Hydromorphone Quant, Urine 607 (H) 10/15/2023 Oxymorphone Quant, Urine <5 10/15/2023 @FLOW([id number])@ Lab Results Component Value Date SUMM FINAL 06/03/2024 No results found for: "SUMMAR" Last Opioid agreement effective date: 06/03/2024 Please review and advise. Ariadna Huerta RN [facility]01-27-2025 Miscellaneous Notes* Telephone Encounter - Ariadna Huerta RN - 10/10/2024 9:03 AM EST Patient phones requesting refills as follows: Requested Prescriptions Pending Prescriptions Disp Refills HYDROcodone-Acetaminophen (NORCO) 10-325 mg per tablet 120 tablet 0 Sig: Take 1 tablet by mouth every 6 hours as needed for pain for up to 30 days. Last UDS: 06/08/2024 UDS CONSISTENT 10/22/2023 UDS CONSISTENT 05/15/2023 UDS CONSISTENT Schedule after 930 am burr [place] Summary Report Date Value Ref Range Status 06/03/2024 FINAL Final Comment: Opiate Class, MS, Ur RFX Acetaminophen, MS, Ur RFX ToxAssure Flex 23, Ur Test Result Flag Units Drug Present Alprazolam 118 ng/mg creat Alpha-hydroxyalprazolam 157 ng/mg creat Source of alprazolam is a scheduled prescription medication. Alpha-hydroxyalprazolam is an expected metabolite of alprazolam. Hydrocodone 1498 ng/mg creat Hydromorphone 868 ng/mg creat Dihydrocodeine 161 ng/mg creat Norhydrocodone 3030 ng/mg creat Sources of hydrocodone include scheduled prescription medications. Hydromorphone, dihydrocodeine and norhydrocodone are expected metabolites of hydrocodone. Hydromorphone and dihydrocodeine are also available as scheduled prescription medications. Acetaminophen PRESENT Dextrorphan/Levorphanol PRESENT Dextrorphan is an expected metabolite of dextromethorphan, an ebhb-jdf-bfqmque or prescription cough suppressant. Levorphanol is a scheduled prescription medication. Dextrorphan cannot be distinguished from levorphanol by the method used for analysis. Test Result Flag Units Ref Range Creatinine 44 mg/dL >=20 Declared Medications: Medication list was not provided. For clinical consultation, please call . Note,Ur Pain Marinelli Date Value Ref Range Status 10/15/2023 Final Comment: This test is for medical use only. This test was developed and its performance characteristics determined by [facility] [place] ([facility]). It has not been cleared or approved by the FDA. [facility] is regulated under CLIA as qualified to perform high-complexity testing. Thistest is used for clinical purposes. It should not be regarded as investigational or for research. Urine Panel: Lab Results Component Value Date Cannabinoid Quant, Urine <16 10/15/2023 Benzoylecgonine Quant, Urine <24 10/15/2023 6-Acetylmorphine Quant, Urine <5 10/15/2023 Amphetamine Quant, Urine <5 10/15/2023 Methamphetamine Quant, Urine <8 10/15/2023 Buprenorphine Quant, Urine <20 10/15/2023 Norbuprenorphine Quant, Urine <20 10/15/2023 Methadone Quant, Urine <16 10/15/2023 EDDP Quant, Urine <6 10/15/2023 Tramadol Quant, Urine <25 10/15/2023 Desmethyltramadol Quant, Urine <20 10/15/2023 Fentanyl Quant, Urine <6 10/15/2023 Norfentanyl Quant, Urine <6 10/15/2023 Codeine Quant, Urine <11 10/15/2023 Morphine Quant, Urine <10 10/15/2023 Dihydrocodeine Quant, Urine 479 (H) 10/15/2023 Hydrocodone Quant, Urine 1,595 (H) 10/15/2023 Oxycodone Quant, Urine <10 10/15/2023 Hydromorphone Quant, Urine 607 (H) 10/15/2023 Oxymorphone Quant, Urine <5 10/15/2023 @FLOW([id number])@ Lab Results Component Value Date SUMM FINAL 06/03/2024 No results found for: "SUMMAR" Last Opioid agreement effective date: 06/03/2024 Please review and advise. Ariadna Huerta RN documented in this encounterSumma Health01-14-2025 Note* Exam Date Time Procedure Performing Provider Status 09/27/24 11:43 AM US Abdomen Complete YUE WHALEY MD ; Auth (Verified) [id number] ORIGINAL EXAMINATION: COMPLETE ABDOMINAL ULTRASOUND 09/27/2024 11:47 am COMPARISON: CT dated 01/07/2021 HISTORY: ORDERING SYSTEM PROVIDED HISTORY: Reason for Exam: left sided abdominal pain, uncontrolled hypertension, patient reports bulge from abdomen when BP is high Nodular, mid left abdominal pain x6 months, history of breast cancer FINDINGS: Study is degraded due to bowel gas. LIVER: The liver demonstrates normal echogenicity without evidence of intrahepatic biliary ductal dilatation. The liver measures 13.6 cm main portal vein with hepatopetal flow. The prior visualized hepatic hypodensity seen on CT dated 01/07/2021 is not well appreciated on ultrasound. BILIARY SYSTEM: Nonvisualization of the gallbladder due to bowel gas. Common bile duct is borderline prominent measuring 9.5 mm. KIDNEYS: The kidneys are orthotopic in location. The right kidney measures 9.2 cm. The left kidney measures 9.5 cm. There are no masses, calculi or hydronephrosis. There is normal corticomedullary differentiation. PANCREAS: Suboptimal evaluation of the pancreas on ultrasound due to shadowing bowel gas and limited evaluation for small lesions. There is increased echogenicity of the pancreatic head in relation to the body and tail which appear more hypoechoic. SPLEEN: The spleen is unremarkable in appearance. Spleen is within normal limits in size measuring 9.4 cm. IVC: The IVC is patent. AORTA: Nonvisualized proximal segment due to bowel gas. Otherwise unremarkable. OTHER: No evidence of ascites. Valsalva maneuver was performed in the area of Sharee umbilical hernia, unremarkable. IMPRESSION: Nonvisualization of the gallbladder due to bowel gas. Borderline prominent common bile duct measuring up to 9 mm. If there is clinical concern for acute cholecystitis consider correlation with HIDA scan. Increased echogenicity of the pancreatic head which may be related to proportionally increased fatty replacement versus edema / pancreatitis of the pancreatic body and tail. Clinical correlation and correlation with pancreatic enzymes is recommended. Additional incidental findings above. Interpreted by: Yue Whaley Preliminary Report By: Yue Whaley Electronically signed By Yue Whaley Dictated Date: 09/27/2024 3:12:10 PM Prelim Date: 09/27/2024 3:24:11 PM Sign Date: 09/27/2024 3:24:11 PM Ordering Provider: BALTAZAR [facility]11-21-2024 History of Present illness Narrative * Zoila Valiente APRN.NUCLEAR FUEL PROCESSING TECHNICIAN - 08/04/2024 4:00 PM EST This video visit was performed via [employer] Video Visit. Patient consented to receive health care services via virtual visit for this encounter Provider Location: [facility] Patient Location: Patient Home or Place of Residence I have communicated my name and active licensure. The patient's identity and physical location wereverified at the time of this visit. Either the patient or their legal workforce services representative has been informed of the risks and benefits of -- and alternatives to -- treatment through a remote evaluation andconsents to proceed with the evaluation remotely. Chief Complaint: Pain History of Present Illness: Carol Ann Orellana is a 79 year old year old female being seen at [facility] for a evaluation and/or management of her chronic pain. The patient was last seen on 06/26/2024. She states that since the last visit symptoms have been persistent. She has not been feeling well. Her medical history has not changed and she denies any hospital stays or ER visits. Pain Location: lower back -mid back, right leg pain, left shoulder, neck Radiation: arms and legs Character: aching Intensity: 6/10 Numbness/tingling: legs, left hand Burning: occasionally feet Weakness: arms Falls: denies Worsening factors: physical activity and cold weather Relieving factors: rest and medication Patient denies any bowel or bladder dysfunction. The patient is currently prescribed Tramadol ER, [place], lyrica and lidocaine cream from our office.The last dose of [place] was taken today and tramadol a couple of days ago. The medications are partially effective. PDMP website checked and validated. The OARRS report has been reviewed and is consistent with the patients medical history and medication intake. Last Opioid agreement effective date: 06/03/2024 Last UDS: Reviewed - No inconsistencies noted. 06/08/2024 UDS CONSISTENT 10/22/2023 UDS CONSISTENT 05/15/2023 UDS CONSISTENT Schedule after 930 am [place]r [place] Summary Report Date Value Ref Range Status 06/03/2024 FINAL Final Comment: Opiate Class, MS, Ur RFX Acetaminophen, MS, Ur RFX ToxAssure Flex 23, Ur Test Result Flag Units Drug Present Alprazolam 118 ng/mg creat Alpha-hydroxyalprazolam 157 ng/mg creat Source of alprazolam is a scheduled prescription medication. Alpha-hydroxyalprazolam is an expected metabolite of alprazolam. Hydrocodone 1498 ng/mg creat Hydromorphone 868 ng/mg creat Dihydrocodeine 161 ng/mg creat Norhydrocodone 3030 ng/mg creat Sources of hydrocodone include scheduled prescription medications. Hydromorphone, dihydrocodeine and norhydrocodone are expected metabolites of hydrocodone. Hydromorphone and dihydrocodeine are also available as scheduled prescription medications. Acetaminophen PRESENT Dextrorphan/Levorphanol PRESENT Dextrorphan is an expected metabolite of dextromethorphan, an atox-fqo-zfabear or prescription cough suppressant. Levorphanol is a scheduled prescription medication. Dextrorphan cannot be distinguished from levorphanol by the method used for analysis. Test Result Flag Units Ref Range Creatinine 44 mg/dL >=20 Declared Medications: Medication list was not provided. For clinical consultation, please call . Urine Panel: Lab Results Component Value Date Cannabinoid Quant, Urine <16 10/15/2023 Benzoylecgonine Quant, Urine <24 10/15/2023 6-Acetylmorphine Quant, Urine <5 10/15/2023 Amphetamine Quant, Urine <5 10/15/2023 Methamphetamine Quant, Urine <8 10/15/2023 Buprenorphine Quant, Urine <20 10/15/2023 Norbuprenorphine Quant, Urine <20 10/15/2023 Methadone Quant, Urine <16 10/15/2023 EDDP Quant, Urine <6 10/15/2023 Tramadol Quant, Urine <25 10/15/2023 Desmethyltramadol Quant, Urine <20 10/15/2023 Fentanyl Quant, Urine <6 10/15/2023 Norfentanyl Quant, Urine <6 10/15/2023 Codeine Quant, Urine <11 10/15/2023 Morphine Quant, Urine <10 10/15/2023 Dihydrocodeine Quant, Urine 479 (H) 10/15/2023 Hydrocodone Quant, Urine 1,595 (H) 10/15/2023 Oxycodone Quant, Urine <10 10/15/2023 Hydromorphone Quant, Urine 607 (H) 10/15/2023 Oxymorphone Quant, Urine <5 10/15/2023 No results found for: "SUMMAR" Chronic Pain Functional Assessment Tools Pain Disability Index: 03/30/2024 08/02/2024 Pain Disability Index Family/Home Responsibilities: This category includes chores or duties performed around the house (e.g. yard work), errands or favors for other family members (e.g. driving the children to school) 0 No Disability 0 No Disability Recreation: This category includes hobbies, sports, and other similar leisure time activities 3 0 No disability Social Activity: This category refers to activities which involve participation with friends and acquaintances, other than family members. It includes parties, theater, concerts, dinning out, and other social functions 0 No disability 0 No disability Occupation: This category refers to activities that are a part of or directly related to ones' job.This includes non-paying jobs as well, such as that of a housewife or volunteer worker 0 No disability 0 No disability Sexual Behavior: This category refers to the frequency and quality of one's sex life 0 No disability 0 No disability Self Care: This category includes activities which involve personal maintenance and independent daily living (e.g. taking a shower, driving, getting dress, etc) 0 No disability 0 No disability Life Support Activity: This category refers to basic-life supporting behaviors such as eating, sleeping, and breathing 0 No disability 0 No disability PDI Score 3 0 Pain Enjoyment of Life and General Activity Scale (0-10): PEG: A Three-Item Scale Assessing Pain Intensity and Interference What number best describes your pain on average in the past week?: 5 (08/02/2024 5:09 PM) What number best describes how, during the past week, pain has interfered with your enjoyment of life?: 3 (08/02/2024 5:09 PM) What number best describes how, during the past week, pain has interfered with your general activity?: 3 (08/02/2024 5:09 PM) REVIEW OF SYSTEMS: GENERAL: No weight loss or fevers RESPIRATORY: Negative for cough CARDIOVASCULAR: Negative for chest pain GI: No nausea, vomiting, or diarrhea. MUSCULOSKELETAL: back pain and muscle pain PAST MEDICAL HISTORY Diagnosis Date Bladder infection Breast cancer (HCC) GERD (gastroesophageal reflux disease) Kidney stones Leg pain Migraines Neurogenic bladder Osteoarthrosis, unspecified whether generalized or localized, other specified sites Osteoporosis Other and unspecified disc disorder of unspecified region Intervertebral disc disorders DIAMOND (stress urinary incontinence, female) Thyroid disease Urethral hypermobility Urge incontinence Urgency of urination PAST SURGICAL HISTORY Procedure Laterality Date ANESTHESIA TOTAL KNEE REPLACEMENT APPENDECTOMY 08/1961 ARTHROTOMY KNEE W/SYNOVIAL BIOPSY ONLY Semilunar cartilage, knee - right BACK SURGERY HX 2011 BLADDER SURGERY HX 2012 BREAST SURGERY HX Right 2018 breast and 3 lymph nodes removed CARPAL TUNNEL Left 12/1979 CATARACT EXTRACTION HX CATARACT EXTRACTION HX 2009 CHOLECYSTECTOMY ELBOW SURGERY HX Left 1994 EXPLORATORY LAPAROTOMY CELIOTOMY W/WO BIOPSY SPX Laparotomy, exp - lysis of adhesions HAND SURGERY HX Right 1989 KNEE SURGERY HX Right removal of meniscus LX EXCISION OF BLADDER TUMOR 1979, 1983 OOPHORECTOMY PARTIAL/TOTAL UNI/BI Oophorectomy TOTAL ABDOMINAL HYSTERECT W/WO RMVL TUBE OVARY Hysterectomy, TOTAL KNEE REPLACEMENT 2009 FAMILY HISTORY Problem Relation Age of Onset Diabetes Mother Stroke Mother Hypertension Mother Heart Father Hypertension Father Heart disease Brother Diabetes Brother Social History Tobacco Use Smoking status: Former Current packs/day: 0.00 Types: Cigarettes Start date: 1967 Quit date: 1982 Years since quittin.9 Smokeless tobacco: Never Substance Use Topics Alcohol use: No Drug use: No Allergies: Oxycodone-Acetamino* Other: See Comments Cortisone Doxycycline Unknown Iv Dye [Iodinated C* Rash Montelukast Unknown, Rash Oxycodone Unknown Sulfa (Sulfonamide * Latex Rash Current Outpatient Medications Medication Sig HYDROcodone-Acetaminophen (NORCO) 10-325 mg per tablet Take 1 tablet by mouth every 6 hours as needed for pain for up to 30 days. Patient should start on June 07, 2024. HYDROcodone-Acetaminophen (NORCO) 10-325 mg per tablet Take 1 tablet by mouth every 6 hours as needed for pain for up to 30 days. Patient should start on July 07, 2024. lidocaine (XYLOCAINE) 5 % ointment Apply to affected area four times a day as needed (pain). Pregabalin (LYRICA) 200 mg capsule Take 1 capsule by mouth three times a day for 30 days. Patient should start on June 07, 2024. apixaban (ELIQUIS) 5 mg tab(s) Take 5 mg by mouth. Metaxalone 400 mg tab Take 0.5-1 tablets by mouth three times a day as needed (pain/). methylPREDNISolone (MEDROL DOSE-PACK) 4 mg Dose-Pack Take 1 tablet by mouth as directed. As Instructed per package MEDICATION, NON-DATABASE Apply 1 Each to affected area once daily. Cervical Traction Device losartan (COZAAR) 50 mg tablet 50 mg twice daily. hydrALAZINE (APRESOLINE) 10 mg tablet TAKE 1 TABLET BY MOUTH FOUR TIMES DAILY NEEDED IF SBP >160 FOR 30 DAYS nebivolol (BYSTOLIC) 10 mg tablet Take 10 mg by mouth once daily. ondansetron orally disintegrating (ZOFRAN ODT) 4 mg disintegrating tablet Take 4 mg by mouth every 6 hours as needed. For Nausea lidocaine (LIDODERM) 5 % Apply 1 Patch as directed every 24 hours. ondansetron (ZOFRAN) 4 mg tablet TAKE 1 TABLET BY MOUTH EVERY 6 HOURS NEEDED FOR NAUSEA OR FOR VOMITING omeprazole (PRILOSEC) 20 mg capsule TAKE 1 CAPSULE BY MOUTH DAILY ON AN EMPTY STOMACH QVAR REDIHALER 80 mcg/actuation inhaler INHALE 2 PUFFS BY MOUTH and into the lungs TWICE DAILY aspirin, enteric coated (ASPIRIN, ENTERIC COATED) 81 mg EC tablet 81 mg. albuterol HFA (PROVENTIL HFA, VENTOLIN HFA) 90 mcg/actuation inhaler INHALE 2 PUFFS BY MOUTH and into the lungs FOUR TIMES DAILY NEEDED furosemide (LASIX) 40 mg tablet 40 mg. ALPRAZolam (XANAX) 1 mg tablet Take 1 mg by mouth three times daily. mv, min #36-iron,carbonyl-FA (GERITOL COMPLETE) 16 mg iron- 0.38 mg tab Geritol Complete 16 mg iron- 0.38 mg tablet lidocaine-prilocaine (EMLA) 2.5-2.5 % cream 1-2 g as needed. furosemide (LASIX) 20 mg tablet Take 20 mg by mouth as needed. iron/vitamin B complex (GERITOL ORAL) Take by mouth. tolterodine ER (DETROL LA) 4 mg 24 hr capsule Take 1 capsule by mouth once daily. lidocaine-methyl lisa-menthol 5-10-3 % ktop lidocaine 5 % oint fluticasone (FLOVENT) 220 mcg/actuation inhaler flovent hfa 220 mcg/act aero methylphenidate (RITALIN) 20 mg tablet Take 20 mg by mouth twice daily. levothyroxine (SYNTHROID) 50 mcg tablet Take 50 mcg by mouth daily before breakfast. ergocalciferol 50,000 unit capsule (VITAMIN D2, DRISDOL) Take 50,000 Units by mouth once each week. meclizine (ANTIVERT) 25 mg tab Take 25 mg by mouth as needed. For dizziness No current facility-administered medications for this visit. PHYSICAL EXAMINATION: VIDEO EXAM: (performed via video enabled technology) GENERAL: alert and appropriate, in no distress and well-hydrated, well nourished HEAD: normocephalic, no abnormality or lesion noted RESPIRATORY: breathing non-labored NEUROLOGIC: no obvious deficit ASSESSMENT: Patient is stable. Chronic pain is persistent. Medications are helping Carol Ann Orellana to have an improved quality of life. Patient compliance with Opioid Contract: patient is compliant Encounter Diagnosis ICD-10-CM 1. 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 Neck pain M54.2 4. Lumbar radiculopathy M54.16 5. 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 Postherpetic neuralgia B02.29 PLAN: Discussed risks associated with concurrent use of narcotics and benzodiazepines. Advised we will nolonger prescribe a narcotic if she is being prescribed a benzodiazepine. She will have to choose whether she wants to continue the narcotic or the benzodiazepine. She has decided to continue her narcotic. Advised to contact the prescriber of the benzodiazepine to start the weaning process because she has until their next appointment to be weaned off the benzodiazepine or we will begin to wean offthe narcotic. The patient understands the goal of our treatment is a reduction in pain and/or an improved level of functioning with activities of daily living. If at any time the patient does not feel the medications are helping them to achieve these goals, the medications may be discontinued. The patient reports a reduction in pain and/or an improved level of functioning with activities of daily living, denies any significant adverse effects, is compliant with the pain management agreement and there are no signs of medication misuse, abuse or diversion; therefore, the medications will be continued. Continue [place] Continue tramadol ER very sparingly She was started on this medication and has been maintained on it by Dr Dawson and [employer]'s working with her. A prescription for narcan (naloxone) has been offered to the patient. Continue Lyrica - Pt is declining procedures at this time Continue Lidocaine ointment Continue Lidocaine patches Continue OTC stool softeners and Colace Continue LB brace Continue metaxalone She went to therapy from 04/14/23 to 04/29/23 then was d/c to complete exercises at home Continue care with PCP and specialists Consider referral to Dr Lomas for surgical opinion Follow up in 2 months Zoila Valiente APRN.CNP [facility]24 NoteHNO ID: [id number] Author: ZOILA VALIENTE APRN.CNP Service: ? Author Type: Nurse Practitioner Type: Progress Notes Filed: 08/04/2024 15:37 Note Text: This video visit was performed via [employer] Video Visit. Patient consented to receive health care services via virtual visit for this encounter Provider Location[facility] Patient Location: Patient Home or Place of Residence I have communicated my name and active licensure. The patient's identity and physical location were verified at the time of this visit. Either the patient or their legal workforce services representative has been informed of the risks and benefits of -- and alternatives to -- treatment through a remote evaluation and consents to proceed with the evaluation remotely. Chief Complaint: Pain History of Present Illness: Carol Ann Orellana is a 79 year old year old female being seen at [facility] for a evaluation and/or management of her chronic pain. The patient was last seen on 06/26/2024. She states that since the last visit symptoms have been persistent. She has not been feeling well. Her medical history has not changed and she denies any hospital stays or ER visits. Pain Location: lower back -mid back, right leg pain, left shoulder, neck Radiation: arms and legs Character: aching Intensity: 6/10 Numbness/tingling: legs, left hand Burning: occasionally feet Weakness: arms Falls: denies Worsening factors: physical activity and cold weather Relieving factors: rest and medication Patient denies any bowel or bladder dysfunction. The patient is currently prescribed Tramadol ER, [place], lyrica and lidocaine cream from our office. The last dose of [place] was taken today and tramadol a couple of days ago. The medications are partially effective. PDMP website checked and validated. The OARRS report has been reviewed and is consistent with the patients medical history and medication intake. Last Opioid agreement effective date: 06/03/2024 Last UDS: Reviewed - No inconsistencies noted. 06/08/2024 UDS CONSISTENT 10/22/2023 UDS CONSISTENT 05/15/2023 UDS CONSISTENT Schedule after 930 am [place] Summary Report Date Value Ref Range Status 06/03/2024 FINAL Final Comment: Opiate Class, MS, Ur RFX Acetaminophen, MS, Ur RFX ToxAssure Flex 23, Ur Test Result Flag Units Drug Present Alprazolam 118 ng/mg creat Alpha-hydroxyalprazolam 157 ng/mg creat Source of alprazolam is a scheduled prescription medication. Alpha-hydroxyalprazolam is an expected metabolite of alprazolam. Hydrocodone 1498 ng/mg creat Hydromorphone 868 ng/mg creat Dihydrocodeine 161 ng/mg creat Norhydrocodone 3030 ng/mg creat Sources of hydrocodone include scheduled prescription medications. Hydromorphone, dihydrocodeine and norhydrocodone are expected metabolites of hydrocodone. Hydromorphone and dihydrocodeine are also available as scheduled prescription medications. Acetaminophen PRESENT Dextrorphan/Levorphanol PRESENT Dextrorphan is an expected metabolite of dextromethorphan, an otax-ynp-qpetrxl or prescription cough suppressant. Levorphanol is a scheduled prescription medication. Dextrorphan cannot be distinguished from levorphanol by the method used for analysis. Test Result Flag Units Ref Range Creatinine 44 mg/dL >=20 Declared Medications: Medication list was not provided. For clinical consultation, please call . Urine Panel: Lab Results Component Value Date Cannabinoid Quant, Urine <16 10/15/2023 Benzoylecgonine Quant, Urine <24 10/15/2023 6-Acetylmorphine Quant, Urine <5 10/15/2023 Amphetamine Quant, Urine <5 10/15/2023 Methamphetamine Quant, Urine <8 10/15/2023 Buprenorphine Quant, Urine <20 10/15/2023 Norbuprenorphine Quant, Urine <20 10/15/2023 Methadone Quant, Urine <16 10/15/2023 EDDP Quant, Urine <6 10/15/2023 Tramadol Quant, Urine <25 10/15/2023 Desmethyltramadol Quant, Urine <20 10/15/2023 Fentanyl Quant, Urine <6 10/15/2023 Norfentanyl Quant, Urine <6 10/15/2023 Codeine Quant, Urine <11 10/15/2023 Morphine Quant, Urine <10 10/15/2023 Dihydrocodeine Quant, Urine 479 (H) 10/15/2023 Hydrocodone Quant, Urine 1,595 (H) 10/15/2023 Oxycodone Quant, Urine <10 10/15/2023 Hydromorphone Quant, Urine 607 (H) 10/15/2023 Oxymorphone Quant, Urine <5 10/15/2023 No results found for: "SUMMAR" Chronic Pain Functional Assessment Tools Pain Disability Index: 03/14 (more content not included)...[facility]11-20-2024 Instructions* Patient Instructions* Zoila Valiente APRN.[facility] - 08/03/2024 9:41 AM EST Despite its legality, THC containing products and CBD products that may contain THC are not to be used while being prescribed pain medications. If your drug screen contains any THC your medication will be discontinued. Discussed risks associated with concurrent use of narcotics and benzodiazepines. Advised we will nolonger prescribe a narcotic if she is being prescribed a benzodiazepine. She will have to choose whether she wants to continue the narcotic or the benzodiazepine. She has decided to continue her narcotic. Advised to contact the prescriber of the benzodiazepine to start the weaning process because she has until their next appointment to be weaned off the benzodiazepine or we will begin to wean offthe narcotic. Continue [place] Continue tramadol ER very sparingly She was started on this medication and has been maintained on it by Dr Dawson and [employer]'s working with her. A prescription for narcan (naloxone) has been offered to the patient. Continue Lyrica - Pt is declining procedures at this time Continue Lidocaine ointment Continue Lidocaine patches Continue OTC stool softeners and Colace Continue LB brace Continue metaxalone She went to therapy from 04/14/23 to 04/29/23 then was d/c to complete exercises at home Continue care with PCP and specialists Consider referral to Dr Lomas for surgical opinion Follow up in 2 months [facility] in this [facility]24 History of Present illness Narrative* Zoila Valiente APRN.CNP - 06/03/2024 8:30 AM EDT Chief Complaint: Pain History of Present Illness: Carol Ann Orellana is a 78 year old year old female being seen at [facility] for a evaluation and/or management of her chronic pain. The patient was last seen on 04/06/2024. She states that since the last visit symptoms have been persistent. Her medical history has not changed and she denies any hospital stays or ER visits. Pain Location: lower back -mid back, right leg pain, left shoulder, neck Radiation: arms and legs Character: aching Intensity: 5/10 Numbness/tingling: legs, left hand Burning: occasionally feet Weakness: arms Falls: denies Worsening factors: physical activity and cold weather Relieving factors: rest and medication Patient denies any bowel or bladder dysfunction. The patient is currently prescribed Tramadol ER, [place], lyrica and lidocaine cream from our office.The last dose of [place] was taken today and tramadol yesterday. The medications are partially effective. PDMP website checked and validated. The OARRS report has been reviewed and is consistent with the patients medical history and medication intake. Last Opioid agreement effective date: 11/06/2023 Last UDS: Reviewed - No inconsistencies noted. 10/22/2023 UDS CONSISTENT 05/15/2023 UDS CONSISTENT 11/11/2022 UDS CONSISTENT No results found for: "SUMM" Urine Panel: Lab Results Component Value Date Cannabinoid Quant, Urine <16 10/15/2023 Benzoylecgonine Quant, Urine <24 10/15/2023 6-Acetylmorphine Quant, Urine <5 10/15/2023 Amphetamine Quant, Urine <5 10/15/2023 Methamphetamine Quant, Urine <8 10/15/2023 Buprenorphine Quant, Urine <20 10/15/2023 Norbuprenorphine Quant, Urine <20 10/15/2023 Methadone Quant, Urine <16 10/15/2023 EDDP Quant, Urine <6 10/15/2023 Tramadol Quant, Urine <25 10/15/2023 Desmethyltramadol Quant, Urine <20 10/15/2023 Fentanyl Quant, Urine <6 10/15/2023 Norfentanyl Quant, Urine <6 10/15/2023 Codeine Quant, Urine <11 10/15/2023 Morphine Quant, Urine <10 10/15/2023 Dihydrocodeine Quant, Urine 479 (H) 10/15/2023 Hydrocodone Quant, Urine 1,595 (H) 10/15/2023 Oxycodone Quant, Urine <10 10/15/2023 Hydromorphone Quant, Urine 607 (H) 10/15/2023 Oxymorphone Quant, Urine <5 10/15/2023 No results found for: "SUMMAR" Chronic Pain Functional Assessment Tools Pain Disability Index: 01/27/2024 03/30/2024 Pain Disability Index Family/Home Responsibilities: This category includes chores or duties performed around the house (e.g. yard work), errands or favors for other family members (e.g. driving the children to school) 0 No Disability 0 No Disability Recreation: This category includes hobbies, sports, and other similar leisure time activities 3 3 Social Activity: This category refers to activities which involve participation with friends and acquaintances, other than family members. It includes parties, theater, concerts, dinning out, and other social functions 5 0 No disability Occupation: This category refers to activities that are a part of or directly related to ones' job.This includes non-paying jobs as well, such as that of a housewife or volunteer worker 0 No disability 0 No disability Sexual Behavior: This category refers to the frequency and quality of one's sex life 0 No disability 0 No disability Self Care: This category includes activities which involve personal maintenance and independent daily living (e.g. taking a shower, driving, getting dress, etc) 0 No disability 0 No disability Life Support Activity: This category refers to basic-life supporting behaviors such as eating, sleeping, and breathing 0 No disability 0 No disability PDI Score 8 3 Pain Enjoyment of Life and General Activity Scale (0-10): PEG: A Three-Item Scale Assessing Pain Intensity and Interference What number best describes your pain on average in the past week?: 5 (03/30/2024 2:05 PM) What number best describes how, during the past week, pain has interfered with your enjoyment of life?: 4 (03/30/2024 2:05 PM) What number best describes how, during the past week, pain has interfered with your general activity?: 4 (03/30/2024 2:05 PM) Screener and Opioid Assessment for Patients with Pain (SOAPP)-5 SOAPP QUESTIONS How often do you have mood swings?: 0 - Never (06/03/2024 8:44 AM) How often do you smoke a cigarette within an hour after you wake up?: 0 - Never (06/03/2024 8:44 AM) How often have you taken medication other than the way it was prescribed?: 0 - Never (06/03/2024 8:44 AM) How often have you used illegal drugs (for example, marijuana, cocaine, etc.) in the past five years?: 0 - Never (06/03/2024 8:44 AM) How often, in your lifetime, have you had legal problems or been arrested?: 0 - Never (06/03/2024 8:44 AM) Sum of Questions (> or = 7 is positive): 0 (06/03/2024 8:44 AM) REVIEW OF SYSTEMS: GENERAL: No weight loss or fevers RESPIRATORY: Negative for cough CARDIOVASCULAR: Negative for chest pain GI: No nausea, vomiting, or diarrhea. MUSCULOSKELETAL: back pain and muscle pain PAST MEDICAL HISTORY Diagnosis Date Bladder infection Breast cancer (HCC) GERD (gastroesophageal reflux disease) Kidney stones Leg pain Migraines Neurogenic bladder Osteoarthrosis, unspecified whether generalized or localized, other specified sites Osteoporosis Other and unspecified disc disorder of unspecified region Intervertebral disc disorders DIAMOND (stress urinary incontinence, female) Thyroid disease Urethral hypermobility Urge incontinence Urgency of urination PAST SURGICAL HISTORY Procedure Laterality Date ANESTHESIA TOTAL KNEE REPLACEMENT APPENDECTOMY 08/1961 ARTHROTOMY KNEE W/SYNOVIAL BIOPSY ONLY Semilunar cartilage, knee - right BACK SURGERY HX 2011 BLADDER SURGERY HX 2012 BREAST SURGERY HX Right 2018 breast and 3 lymph nodes removed CARPAL TUNNEL Left 12/1979 CATARACT EXTRACTION HX CATARACT EXTRACTION HX 2009 CHOLECYSTECTOMY ELBOW SURGERY HX Left 1994 EXPLORATORY LAPAROTOMY CELIOTOMY W/WO BIOPSY SPX Laparotomy, exp - lysis of adhesions HAND SURGERY HX Right 1989 KNEE SURGERY HX Right removal of meniscus LX EXCISION OF BLADDER TUMOR 1979, 1983 OOPHORECTOMY PARTIAL/TOTAL UNI/BI Oophorectomy TOTAL ABDOMINAL HYSTERECT W/WO RMVL TUBE OVARY Hysterectomy, TOTAL KNEE REPLACEMENT 2009 FAMILY HISTORY Problem Relation Age of Onset Diabetes Mother Stroke Mother Hypertension Mother Heart Father Hypertension Father Heart disease Brother Diabetes Brother Social History Tobacco Use Smoking status: Former Current packs/day: 0.00 Types: Cigarettes Start date: 1967 Quit date: 1982 Years since quittin.7 Smokeless tobacco: Never Substance Use Topics Alcohol use: No Drug use: No Allergies: Oxycodone-Acetamino* Other: See Comments Cortisone Doxycycline Unknown Iv Dye [Iodinated C* Rash Montelukast Unknown, Rash Oxycodone Unknown Sulfa (Sulfonamide * Latex Rash Current Outpatient Medications Medication Sig apixaban (ELIQUIS) 5 mg tab(s) Take 5 mg by mouth. HYDROcodone-Acetaminophen (NORCO) 10-325 mg per tablet Take 1 tablet by mouth every 6 hours as needed for pain for up to 30 days. Do not start before May 07, 2024. HYDROcodone-Acetaminophen (NORCO) 10-325 mg per tablet Take 1 tablet by mouth every 6 hours as needed for pain for up to 30 days. Do not start before April 07, 2024. Pregabalin (LYRICA) 200 mg capsule Take 1 capsule by mouth three times a day for 30 days. Do not start before May 05, 2024. Metaxalone 400 mg tab Take 0.5-1 tablets by mouth three times a day as needed (pain/). lidocaine (XYLOCAINE) 5 % ointment Apply to affected area four times a day as needed (pain). methylPREDNISolone (MEDROL DOSE-PACK) 4 mg Dose-Pack Take 1 tablet by mouth as directed. As Instructed per package MEDICATION, NON-DATABASE Apply 1 Each to affected area once daily. Cervical Traction Device losartan (COZAAR) 50 mg tablet 50 mg twice daily. hydrALAZINE (APRESOLINE) 10 mg tablet TAKE 1 TABLET BY MOUTH FOUR TIMES DAILY NEEDED IF SBP >160 FOR 30 DAYS nebivolol (BYSTOLIC) 10 mg tablet Take 10 mg by mouth once daily. ondansetron orally disintegrating (ZOFRAN ODT) 4 mg disintegrating tablet Take 4 mg by mouth every 6 hours as needed. For Nausea lidocaine (LIDODERM) 5 % Apply 1 Patch as directed every 24 hours. ondansetron (ZOFRAN) 4 mg tablet TAKE 1 TABLET BY MOUTH EVERY 6 HOURS NEEDED FOR NAUSEA OR FOR VOMITING omeprazole (PRILOSEC) 20 mg capsule TAKE 1 CAPSULE BY MOUTH DAILY ON AN EMPTY STOMACH QVAR REDIHALER 80 mcg/actuation inhaler INHALE 2 PUFFS BY MOUTH and into the lungs TWICE DAILY aspirin, enteric coated (ASPIRIN, ENTERIC COATED) 81 mg EC tablet 81 mg. albuterol HFA (PROVENTIL HFA, VENTOLIN HFA) 90 mcg/actuation inhaler INHALE 2 PUFFS BY MOUTH and into the lungs FOUR TIMES DAILY NEEDED furosemide (LASIX) 40 mg tablet 40 mg. ALPRAZolam (XANAX) 1 mg tablet Take 1 mg by mouth three times daily. mv, min #36-iron,carbonyl-FA (GERITOL COMPLETE) 16 mg iron- 0.38 mg tab Geritol Complete 16 mg iron- 0.38 mg tablet lidocaine-prilocaine (EMLA) 2.5-2.5 % cream 1-2 g as needed. furosemide (LASIX) 20 mg tablet Take 20 mg by mouth as needed. iron/vitamin B complex (GERITOL ORAL) Take by mouth. tolterodine ER (DETROL LA) 4 mg 24 hr capsule Take 1 capsule by mouth once daily. lidocaine-methyl lisa-menthol 5-10-3 % ktop lidocaine 5 % oint fluticasone (FLOVENT) 220 mcg/actuation inhaler flovent hfa 220 mcg/act aero methylphenidate (RITALIN) 20 mg tablet Take 20 mg by mouth twice daily. levothyroxine (SYNTHROID) 50 mcg tablet Take 50 mcg by mouth daily before breakfast. ergocalciferol 50,000 unit capsule (VITAMIN D2, DRISDOL) Take 50,000 Units by mouth once each week. meclizine (ANTIVERT) 25 mg tab Take 25 mg by mouth as needed. For dizziness No current facility-administered medications for this visit. PHYSICAL EXAMINATION: BP 140/66 (BP Site: Left Arm, BP Position: Sitting) Pulse (!) 54 Resp 18 Wt 68.7 kg (151 lb 6.4 oz) SpO2 97% BMI 28.61 kg/m GENERAL: alert and appropriate, in no distress HEAD: normocephalic, no abnormality or lesion noted RESPIRATORY: breathing non-labored NEUROLOGIC: no obvious deficit MUSCULOSKELETAL: 4/5 motor strength on the left leg and +5/5 motor strength on the right leg. Negative SLR signs bilaterally. Diminished sensation with light touch in right leg at all dermatomes. Patient has SLR of about 80 degrees on the left and 90 degrees on the right. Negative Jovita's test bilaterally. Lumbar flexion is 80 degrees and lumbar extension is 10 degrees. Toe and heel walking are normal. She has crepitus at the right knee. ASSESSMENT: Patient is stable. Chronic pain is persistent. Medications are helping Carol Ann Orellana to have an improved quality of life. Patient compliance with Opioid Contract: patient is compliant Encounter Diagnosis ICD-10-CM 1. Other chronic pain G89.29 2. care home (current) use of opiate analgesic Z79.891 3. Lumbar radiculopathy M54.16 4. Neck pain M54.2 5. 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 Postherpetic neuralgia B02.29 PLAN: Urine drug screen was ordered today because of patient being moderate risk for possible opioid abuse. Despite its legality, THC containing products and CBD products that may contain THC are not to be used while being prescribed pain medications. If your drug screen contains any THC your medication will be discontinued. The patient understands the goal of our treatment is a reduction in pain and/or an improved level of functioning with activities of daily living. If at any time the patient does not feel the medications are helping them to achieve these goals, the medications may be discontinued. The patient reports a reduction in pain and/or an improved level of functioning with activities of daily living, denies any significant adverse effects, is compliant with the pain management agreement and there are no signs of medication misuse, abuse or diversion; therefore, the medications will be continued. Continue [place] Continue tramadol ER very sparingly She was started on this medication and has been maintained on it by Dr Dawson and [employer]'s working with her. A prescription for narcan (naloxone) has been offered to the patient. Continue Lyrica - Pt is declining procedures at this time Continue Lidocaine ointment Continue Lidocaine patches Continue OTC stool softeners and Colace Continue LB brace Continue metaxalone She went to therapy from 04/14/23 to 04/29/23 then was d/c to complete exercises at home Continue care with PCP and specialists Follow up in 2 months Zoila Valiente APRN.CNP documented in this encounterSum[facility]09-20-2024 NoteHNO ID: [id number] Author: ZOILA VALIENTE APRN.CNP Service: ? Author Type: Nurse Practitioner Type: Progress Notes Filed: 06/03/2024 09:10 Note Text: Chief Complaint: Pain History of Present Illness: Carol Ann Orellana is a 78 year old year old female being seen at [facility] for a evaluation and/or management of her chronic pain. The patient was last seen on 04/06/2024. She states that since the last visit symptoms have been persistent. Her medical history has not changed and she denies any hospital stays or ER visits. Pain Location: lower back -mid back, right leg pain, left shoulder, neck Radiation: arms and legs Character: aching Intensity: 5/10 Numbness/tingling: legs, left hand Burning: occasionally feet Weakness: arms Falls: denies Worsening factors: physical activity and cold weather Relieving factors: rest and medication Patient denies any bowel or bladder dysfunction. The patient is currently prescribed Tramadol ER, [place], lyrica and lidocaine cream from our office. The last dose of [place] was taken today and tramadol yesterday. The medications are partially effective. PDMP website checked and validated. The OARRS report has been reviewed and is consistent with the patients medical history and medication intake. Last Opioid agreement effective date: 11/06/2023 Last UDS: Reviewed - No inconsistencies noted. 10/22/2023 UDS CONSISTENT 05/15/2023 UDS CONSISTENT 11/11/2022 UDS CONSISTENT No results found for: "SUMM" Urine Panel: Lab Results Component Value Date Cannabinoid Quant, Urine <16 10/15/2023 Benzoylecgonine Quant, Urine <24 10/15/2023 6-Acetylmorphine Quant, Urine <5 10/15/2023 Amphetamine Quant, Urine <5 10/15/2023 Methamphetamine Quant, Urine <8 10/15/2023 Buprenorphine Quant, Urine <20 10/15/2023 Norbuprenorphine Quant, Urine <20 10/15/2023 Methadone Quant, Urine <16 10/15/2023 EDDP Quant, Urine <6 10/15/2023 Tramadol Quant, Urine <25 10/15/2023 Desmethyltramadol Quant, Urine <20 10/15/2023 Fentanyl Quant, Urine <6 10/15/2023 Norfentanyl Quant, Urine <6 10/15/2023 Codeine Quant, Urine <11 10/15/2023 Morphine Quant, Urine <10 10/15/2023 Dihydrocodeine Quant, Urine 479 (H) 10/15/2023 Hydrocodone Quant, Urine 1,595 (H) 10/15/2023 Oxycodone Quant, Urine <10 10/15/2023 Hydromorphone Quant, Urine 607 (H) 10/15/2023 Oxymorphone Quant, Urine <5 10/15/2023 No results found for: "SUMMAR" Chronic Pain Functional Assessment Tools Pain Disability Index: 01/27/2024 03/30/2024 Pain Disability Index Family/Home Responsibilities: This category includes chores or duties performed around the house (e.g. yard work), errands or favors for other family members (e.g. driving the children to school) 0 No Disability 0 No Disability Recreation: This category includes hobbies, sports, and other similar leisure time activities 3 3 Social Activity: This category refers to activities which involve participation with friends and acquaintances, other than family members. It includes parties, theater, concerts, dinning out, and other social functions 5 0 No disability Occupation: This category refers to activities that are a part of or directly related to ones' job. This includes non-paying jobs as well, such as that of a housewife or volunteer worker 0 No disability 0 No disability Sexual Behavior: This category refers to the frequency and quality of one's sex life 0 No disability 0 No disability Self Care: This category includes activities which involve personal maintenance and independent daily living (e.g. taking a shower, driving, getting dress, etc) 0 No disability 0 No disability Life Support Activity: This category refers to basic-life supporting behaviors such as eating, sleeping, and breathing 0 No disability 0 No disability PDI Score 8 3 Pain Enjoyment of Life and General Activity Scale (0-10): PEG: A Three-Item Scale Assessing Pain Intensity and Interference What number best describes your pain on average in the past week?: 5 (03/30/2024 2:05 PM) What number best describes how, during the past week, pain has interfered with your enjoyment of life?: 4 (03/30/2024 2:05 PM) What number best describes how, during the past week, pain has interfered with your general activity?: 4 (03/30/2024 2:05 PM) Screener and Opioid Assessment for Patients with Pain (SOAPP)-5 SOAPP QUESTIONS How often do you have mood swings?: 0 - Never (06/03/2024 8:44 AM) How often do you smoke a cigarette within an hour after you wake up?: 0 - Never (06/03/2024 8:44 AM) How often have you taken medication other than the way it was prescribed?: 0 - Never (06/03/2024 8:44 AM) How often have you used illegal drugs (for example, marijuana, cocaine, etc.) in the past five years?: 0 - Never (06/03/2024 8:44 AM) How often, in your lifetime, have you had legal problems (more content not included)...[facility]09-19-2024 Instructions* Patient Instructions* Zoila Valiente APRN.CNP - 06/02/2024 6:50 AM EDT Obtain UDS Despite its legality, THC containing products and CBD products that may contain THC are not to be used while being prescribed pain medications. If your drug screen contains any THC your medication will be discontinued. Continue [place] Continue tramadol ER very sparingly She was started on this medication and has been maintained on it by Dr Dawson and [employer]'s working with her. A prescription for narcan (naloxone) has been offered to the patient. Continue Lyrica - Pt is declining procedures at this time Continue Lidocaine ointment Continue Lidocaine patches Continue OTC stool softeners and Colace Continue LB brace Continue metaxalone She went to therapy from 04/14/23 to 04/29/23 then was d/c to complete exercises at home Continue care with PCP and specialists Follow up in 2 months documented in this encounterSumma Health07-24-2024 History of Present illness Narrative* Zoila Valiente [employer].NUCLEAR FUEL PROCESSING TECHNICIAN - 04/06/2024 10:30 AM EDT This video visit was performed via [employer] Video Visit. Patient consented to receive health care services via virtual visit for this encounter Provider Location: Non-[facility] Patient Location: Patient Home or Place of Residence I have communicated my name and active licensure. The patient's identity and physical location wereverified at the time of this visit. Either the patient or their legal workforce services representative has been informed of the risks and benefits of -- and alternatives to -- treatment through a remote evaluation andconsents to proceed with the evaluation remotely. Chief Complaint: Pain History of Present Illness: Carol Ann Orellana is a 78 year old year old female being seen at [facility] for a evaluation and/or management of her chronic pain. The patient was last seen on 04/05/2024. She states that since the last visit symptoms have been stable. She was seen in the Emergency Room due to SOB and then again for high blood pressure. Otherwise, her medical history has not changed and she denies any hospital stays or ER visits. Pain Location: lower back -mid back, right leg pain, left shoulder, neck Radiation: arms and legs Character: aching Intensity: 5-6/10 Numbness/tingling: legs, left hand Burning: occasionally feet Weakness: arms Falls: denies Worsening factors: physical activity and cold weather Relieving factors: rest and medication Patient denies any bowel or bladder dysfunction. The patient is currently prescribed Tramadol ER, [place], lyrica and lidocaine cream from our office.The last dose of [place] was taken today and tramadol yesterday. The medications are partially effective. PDMP website checked and validated. The OARRS report has been reviewed and is consistent with the patients medical history and medication intake. Last Opioid agreement effective date: 11/06/2023 Last UDS: Reviewed - No inconsistencies noted. 10/22/2023 UDS CONSISTENT 05/15/2023 UDS CONSISTENT 11/11/2022 UDS CONSISTENT No results found for: "SUMM" Urine Panel: Lab Results Component Value Date Cannabinoid Quant, Urine <16 10/15/2023 Benzoylecgonine Quant, Urine <24 10/15/2023 6-Acetylmorphine Quant, Urine <5 10/15/2023 Amphetamine Quant, Urine <5 10/15/2023 Methamphetamine Quant, Urine <8 10/15/2023 Buprenorphine Quant, Urine <20 10/15/2023 Norbuprenorphine Quant, Urine <20 10/15/2023 Methadone Quant, Urine <16 10/15/2023 EDDP Quant, Urine <6 10/15/2023 Tramadol Quant, Urine <25 10/15/2023 Desmethyltramadol Quant, Urine <20 10/15/2023 Fentanyl Quant, Urine <6 10/15/2023 Norfentanyl Quant, Urine <6 10/15/2023 Codeine Quant, Urine <11 10/15/2023 Morphine Quant, Urine <10 10/15/2023 Dihydrocodeine Quant, Urine 479 (H) 10/15/2023 Hydrocodone Quant, Urine 1,595 (H) 10/15/2023 Oxycodone Quant, Urine <10 10/15/2023 Hydromorphone Quant, Urine 607 (H) 10/15/2023 Oxymorphone Quant, Urine <5 10/15/2023 No results found for: "SUMMAR" Chronic Pain Functional Assessment Tools Pain Disability Index: 01/27/2024 03/30/2024 Pain Disability Index Family/Home Responsibilities: This category includes chores or duties performed around the house (e.g. yard work), errands or favors for other family members (e.g. driving the children to school) 0 No Disability 0 No Disability Recreation: This category includes hobbies, sports, and other similar leisure time activities 3 3 Social Activity: This category refers to activities which involve participation with friends and acquaintances, other than family members. It includes parties, theater, concerts, dinning out, and other social functions 5 0 No disability Occupation: This category refers to activities that are a part of or directly related to ones' job.This includes non-paying jobs as well, such as that of a housewife or volunteer worker 0 No disability 0 No disability Sexual Behavior: This category refers to the frequency and quality of one's sex life 0 No disability 0 No disability Self Care: This category includes activities which involve personal maintenance and independent daily living (e.g. taking a shower, driving, getting dress, etc) 0 No disability 0 No disability Life Support Activity: This category refers to basic-life supporting behaviors such as eating, sleeping, and breathing 0 No disability 0 No disability PDI Score 8 3 Pain Enjoyment of Life and General Activity Scale (0-10): PEG: A Three-Item Scale Assessing Pain Intensity and Interference What number best describes your pain on average in the past week?: 5 (03/30/2024 2:05 PM) What number best describes how, during the past week, pain has interfered with your enjoyment of life?: 4 (03/30/2024 2:05 PM) What number best describes how, during the past week, pain has interfered with your general activity?: 4 (03/30/2024 2:05 PM) REVIEW OF SYSTEMS: GENERAL: No weight loss or fevers RESPIRATORY: Negative for cough CARDIOVASCULAR: Negative for chest pain GI: No nausea, vomiting, or diarrhea. MUSCULOSKELETAL: back pain and muscle pain PAST MEDICAL HISTORY Diagnosis Date Bladder infection Breast cancer (HCC) GERD (gastroesophageal reflux disease) Kidney stones Leg pain Migraines Neurogenic bladder Osteoarthrosis, unspecified whether generalized or localized, other specified sites Osteoporosis Other and unspecified disc disorder of unspecified region Intervertebral disc disorders DIAMOND (stress urinary incontinence, female) Thyroid disease Urethral hypermobility Urge incontinence Urgency of urination PAST SURGICAL HISTORY Procedure Laterality Date ANESTHESIA TOTAL KNEE REPLACEMENT APPENDECTOMY 08/1961 ARTHROTOMY KNEE W/SYNOVIAL BIOPSY ONLY Semilunar cartilage, knee - right BACK SURGERY HX 2011 BLADDER SURGERY HX 2012 BREAST SURGERY HX Right 2018 breast and 3 lymph nodes removed CARPAL TUNNEL Left 12/1979 CATARACT EXTRACTION HX CATARACT EXTRACTION HX 2009 CHOLECYSTECTOMY ELBOW SURGERY HX Left 1994 EXPLORATORY LAPAROTOMY CELIOTOMY W/WO BIOPSY SPX Laparotomy, exp - lysis of adhesions HAND SURGERY HX Right 1990 KNEE SURGERY HX Right removal of meniscus LX EXCISION OF BLADDER TUMOR 1979, 1983 OOPHORECTOMY PARTIAL/TOTAL UNI/BI Oophorectomy TOTAL ABDOMINAL HYSTERECT W/WO RMVL TUBE OVARY Hysterectomy, TOTAL KNEE REPLACEMENT 2009 FAMILY HISTORY Problem Relation Age of Onset Diabetes Mother Stroke Mother Hypertension Mother Heart Father Hypertension Father Heart disease Brother Diabetes Brother Social History Tobacco Use Smoking status: Former Years: 15 Types: Cigarettes Quit date: 1982 Years since quittin.5 Smokeless tobacco: Never Substance Use Topics Alcohol use: No Drug use: No Allergies: Oxycodone-Acetamino* Other: See Comments Cortisone Doxycycline Unknown Iv Dye [Iodinated C* Rash Montelukast Unknown, Rash Oxycodone Unknown Sulfa (Sulfonamide * Latex Rash Current Outpatient Medications Medication Sig HYDROcodone-Acetaminophen (NORCO) 10-325 mg per tablet Take 1 tablet by mouth every 6 hours as needed for pain for up to 30 days. Do not start before February 05, 2024. HYDROcodone-Acetaminophen (NORCO) 10-325 mg per tablet Take 1 tablet by mouth every 6 hours as needed for pain for up to 30 days. Do not start before March 06, 2024. Metaxalone 400 mg tab Take 0.5-1 tablets by mouth three times a day as needed (pain/). Pregabalin (LYRICA) 200 mg capsule Take 1 capsule by mouth three times a day for 30 days. lidocaine (XYLOCAINE) 5 % ointment Apply to affected area four times a day as needed (pain). methylPREDNISolone (MEDROL DOSE-PACK) 4 mg Dose-Pack Take 1 tablet by mouth as directed. As Instructed per package MEDICATION, NON-DATABASE Apply 1 Each to affected area once daily. Cervical Traction Device losartan (COZAAR) 50 mg tablet 50 mg twice daily. hydrALAZINE (APRESOLINE) 10 mg tablet TAKE 1 TABLET BY MOUTH FOUR TIMES DAILY NEEDED IF SBP >160 FOR 30 DAYS nebivolol (BYSTOLIC) 10 mg tablet Take 10 mg by mouth once daily. ondansetron orally disintegrating (ZOFRAN ODT) 4 mg disintegrating tablet Take 4 mg by mouth every 6 hours as needed. For Nausea lidocaine (LIDODERM) 5 % Apply 1 Patch as directed every 24 hours. ondansetron (ZOFRAN) 4 mg tablet TAKE 1 TABLET BY MOUTH EVERY 6 HOURS NEEDED FOR NAUSEA OR FOR VOMITING omeprazole (PRILOSEC) 20 mg capsule TAKE 1 CAPSULE BY MOUTH DAILY ON AN EMPTY STOMACH QVAR REDIHALER 80 mcg/actuation inhaler INHALE 2 PUFFS BY MOUTH and into the lungs TWICE DAILY aspirin, enteric coated (ASPIRIN, ENTERIC COATED) 81 mg EC tablet 81 mg. albuterol HFA (PROVENTIL HFA, VENTOLIN HFA) 90 mcg/actuation inhaler INHALE 2 PUFFS BY MOUTH and into the lungs FOUR TIMES DAILY NEEDED furosemide (LASIX) 40 mg tablet 40 mg. ALPRAZolam (XANAX) 1 mg tablet Take 1 mg by mouth three times daily. mv, min #36-iron,carbonyl-FA (GERITOL COMPLETE) 16 mg iron- 0.38 mg tab Geritol Complete 16 mg iron- 0.38 mg tablet lidocaine-prilocaine (EMLA) 2.5-2.5 % cream 1-2 g as needed. furosemide (LASIX) 20 mg tablet Take 20 mg by mouth as needed. iron/vitamin B complex (GERITOL ORAL) Take by mouth. tolterodine ER (DETROL LA) 4 mg 24 hr capsule Take 1 capsule by mouth once daily. lidocaine-methyl lisa-menthol 5-10-3 % ktop lidocaine 5 % oint fluticasone (FLOVENT) 220 mcg/actuation inhaler flovent hfa 220 mcg/act aero methylphenidate (RITALIN) 20 mg tablet Take 20 mg by mouth twice daily. levothyroxine (SYNTHROID) 50 mcg tablet Take 50 mcg by mouth daily before breakfast. ergocalciferol 50,000 unit capsule (VITAMIN D2, DRISDOL) Take 50,000 Units by mouth once each week. meclizine (ANTIVERT) 25 mg tab Take 25 mg by mouth as needed. For dizziness No current facility-administered medications for this visit. PHYSICAL EXAMINATION: VIDEO EXAM: (performed via video enabled technology) GENERAL: alert and appropriate, in no distress and well-hydrated, well nourished HEAD: normocephalic, no abnormality or lesion noted RESPIRATORY: breathing non-labored NEUROLOGIC: no obvious deficit ASSESSMENT: Patient is stable. Chronic pain is persistent. Medications are helping Carol Ann Orellana to have an improved quality of life. Patient compliance with Opioid Contract: patient is compliant Encounter Diagnosis ICD-10-CM 1. 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 Lumbar radiculopathy M54.16 4. Neck pain M54.2 5. 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 Postherpetic neuralgia B02.29 PLAN: The patient understands the goal of our treatment is a reduction in pain and/or an improved level of functioning with activities of daily living. If at any time the patient does not feel the medications are helping them to achieve these goals, the medications may be discontinued. The patient reports a reduction in pain and/or an improved level of functioning with activities of daily living, denies any significant adverse effects, is compliant with the pain management agreement and there are no signs of medication misuse, abuse or diversion; therefore, the medications will be continued. Continue [place] Continue tramadol ER very sparingly She was started on this medication and has been maintained on it by Dr Dawson and [employer]'s working with her. A prescription for narcan (naloxone) has been offered to the patient. Continue Lyrica - Pt is declining procedures at this time Continue Lidocaine ointment Continue Lidocaine patches Continue OTC stool softeners and Colace Continue LB brace Continue metaxalone She went to therapy from 04/14/23 to 04/29/23 then was d/c to complete exercises at home Continue care with PCP and specialists Follow up in 2 months Zoila Valiente APRN.CNP documented in this encounterSumma Health07-24-2024 Instructions* Patient Instructions* Zoila Valiente APRN.CNP - 04/06/2024 6:59 AM EDT Continue [place] Continue tramadol ER very sparingly She was started on this medication and has been maintained on it by Dr Dawson and [employer]'s working with her. A prescription for narcan (naloxone) has been offered to the patient. Continue Lyrica - Pt is declining procedures at this time Continue Lidocaine ointment Continue Lidocaine patches Continue OTC stool softeners and Colace Continue LB brace Continue metaxalone She went to therapy from 04/14/23 to 04/29/23 then was d/c to complete exercises at home Continue care with PCP and specialists Follow up in 2 months documented in this encounterSumma Health06-17-2024 Note ORIGINAL HISTORY: Memory change, trauma, pulmonary embolism COMPARISON: Head CT 06 May 2022 TECHNIQUE: 1. Sagittal T1-weighted images. 2. Axial T2-weighted and T2*-weighted images. 3. Axial FLAIR images. 4. Axial diffusion-weighted images with ADC map. FINDINGS: The ventricles and sulci are mildly enlarged. There are no abnormal intra or extra-axial fluid collections. There are a few scattered punctate T2 hyperintensities in the cerebral white matter; call-white matter differentiation is maintained. There is no abnormal restriction of diffusion. The paranasal sinuses are clear. There is mild mastoid disease. IMPRESSION: Mild volume loss, otherwise unremarkable examination of the brain. Interpreted by: Christiano Godinez MD Preliminary Report By: Christiano Godinez MD Electronically signed By Christiano Godinez MD Dictated Date: 02/29/2024 10:15:17 AM Prelim Date: 02/29/2024 10:17:14 AM Sign Date: 02/29/2024 10:17:14 AM Ordering Provider: [facility]05-21-2024 Telephone encounter Note* Telephone Encounter - Mercedes Amor MA - 02/02/2024 2:43 PM EDT Items addressed in this encounter: Prior Authorization PA for Metaxalone 400mg sent thru HUB approved Able to close encounter. Mercedes Amor MA February 02, 2024 2:43 PM 2:43 PM [facility]05-21-[facility]24 Miscellaneous Notes* Telephone Encounter - Mercedes Amor MA - 02/02/2024 2:43 PM EDT Items addressed in this encounter: Prior Authorization PA for Metaxalone 400mg sent thru [employer] approved Able to close encounter. Mercedes Amor MA February 02, 2024 2:43 PM 2:43 PM documented in this encounterSumma Health05-21-2024 History of Present illness Narrative* Zoila Valiente APRN.NUCLEAR FUEL PROCESSING TECHNICIAN - 02/02/2024 2:00 PM EDT This video visit was performed via [employer] Video Visit. Patient consented to receive health care services via virtual visit for this encounter Provider [facility] Patient Location: ER I have communicated my name and active licensure. The patient's identity and physical location wereverified at the time of this visit. Either the patient or their legal workforce services representative has been informed of the risks and benefits of -- and alternatives to -- treatment through a remote evaluation andconsents to proceed with the evaluation remotely. Chief Complaint: Pain History of Present Illness: Carol Ann Orellana is a 78 year old year old female being seen at [facility] for a evaluation and/or management of her chronic pain. The patient was last seen virtually on 12/30/2023. She states that since the last visit symptoms have been persistent. [facility] to issues breathing and generalized weakness. She is having pain in her throat. She is having issues with her right knee and has lumps on it with shooting pain. Otherwise, her medical history has not changed and she denies any hospital stays or ER visits. Pain Location: lower back -mid back, right leg pain, left shoulder, neck Radiation: arms and legs Character: aching Intensity: 7/10 Numbness/tingling: legs, left hand Burning: occasionally feet Weakness: arms Falls: denies Worsening factors: physical activity and cold weather Relieving factors: rest and medication Patient denies any bowel or bladder dysfunction. The patient is currently prescribed Tramadol ER, [place], lyrica and lidocaine cream from our office.The last dose of [place] was taken today and tramadol yesterday. The medications are partially effective. PDMP website checked and validated. The OARRS report has been reviewed and is consistent with the patients medical history and medication intake. Last Opioid agreement effective date: 11/06/2023 Last UDS: Reviewed - No inconsistencies noted. 10/22/2023 UDS CONSISTENT 05/15/2023 UDS CONSISTENT 11/11/2022 UDS CONSISTENT No results found for: "SUMM" Urine Panel: Lab Results Component Value Date Cannabinoid Quant, Urine <16 10/15/2023 Benzoylecgonine Quant, Urine <24 10/15/2023 6-Acetylmorphine Quant, Urine <5 10/15/2023 Amphetamine Quant, Urine <5 10/15/2023 Methamphetamine Quant, Urine <8 10/15/2023 Buprenorphine Quant, Urine <20 10/15/2023 Norbuprenorphine Quant, Urine <20 10/15/2023 Methadone Quant, Urine <16 10/15/2023 EDDP Quant, Urine <6 10/15/2023 Tramadol Quant, Urine <25 10/15/2023 Desmethyltramadol Quant, Urine <20 10/15/2023 Fentanyl Quant, Urine <6 10/15/2023 Norfentanyl Quant, Urine <6 10/15/2023 Codeine Quant, Urine <11 10/15/2023 Morphine Quant, Urine <10 10/15/2023 Dihydrocodeine Quant, Urine 479 (H) 10/15/2023 Hydrocodone Quant, Urine 1,595 (H) 10/15/2023 Oxycodone Quant, Urine <10 10/15/2023 Hydromorphone Quant, Urine 607 (H) 10/15/2023 Oxymorphone Quant, Urine <5 10/15/2023 No results found for: "SUMMAR" Chronic Pain Functional Assessment Tools Pain Disability Index: 12/23/2023 01/27/2024 Pain Disability Index Family/Home Responsibilities: This category includes chores or duties performed around the house (e.g. yard work), errands or favors for other family members (e.g. driving the children to school) 5 0No Disability Recreation: This category includes hobbies, sports, and other similar leisure time activities 8 3 Social Activity: This category refers to activities which involve participation with friends and acquaintances, other than family members. It includes parties, theater, concerts, dinning out, and other social functions 6 5 Occupation: This category refers to activities that are a part of or directly related to ones' job.This includes non-paying jobs as well, such as that of a housewife or volunteer worker 0 No disability 0 No disability Sexual Behavior: This category refers to the frequency and quality of one's sex life 0 No disability 0 No disability Self Care: This category includes activities which involve personal maintenance and independent daily living (e.g. taking a shower, driving, getting dress, etc) 0 No disability 0 No disability Life Support Activity: This category refers to basic-life supporting behaviors such as eating, sleeping, and breathing 0 No disability 0 No disability PDI Score 19 8 Pain Enjoyment of Life and General Activity Scale (0-10): PEG: A Three-Item Scale Assessing Pain Intensity and Interference What number best describes your pain on average in the past week?: 5 (01/27/2024 9:08 AM) What number best describes how, during the past week, pain has interfered with your enjoyment of life?: 3 (01/27/2024 9:08 AM) What number best describes how, during the past week, pain has interfered with your general activity?: 1 (01/27/2024 9:08 AM) REVIEW OF SYSTEMS: GENERAL: No weight loss or fevers RESPIRATORY: Negative for cough CARDIOVASCULAR: Negative for chest pain GI: No nausea, vomiting, or diarrhea. MUSCULOSKELETAL: back pain and muscle pain PAST MEDICAL HISTORY Diagnosis Date Bladder infection Breast cancer (HCC) GERD (gastroesophageal reflux disease) Kidney stones Leg pain Migraines Neurogenic bladder Osteoarthrosis, unspecified whether generalized or localized, other specified sites Osteoporosis Other and unspecified disc disorder of unspecified region Intervertebral disc disorders DIAMOND (stress urinary incontinence, female) Thyroid disease Urethral hypermobility Urge incontinence Urgency of urination PAST SURGICAL HISTORY Procedure Laterality Date ANESTHESIA TOTAL KNEE REPLACEMENT APPENDECTOMY 08/1961 ARTHROTOMY KNEE W/SYNOVIAL BIOPSY ONLY Semilunar cartilage, knee - right BACK SURGERY HX 2011 BLADDER SURGERY HX 2012 BREAST SURGERY HX Right 2018 breast and 3 lymph nodes removed CARPAL TUNNEL Left 12/1979 CATARACT EXTRACTION HX CATARACT EXTRACTION HX 2009 CHOLECYSTECTOMY ELBOW SURGERY HX Left 1995 EXPLORATORY LAPAROTOMY CELIOTOMY W/WO BIOPSY SPX Laparotomy, exp - lysis of adhesions HAND SURGERY HX Right 1989 KNEE SURGERY HX Right removal of meniscus LX EXCISION OF BLADDER TUMOR 1979, 1983 OOPHORECTOMY PARTIAL/TOTAL UNI/BI Oophorectomy TOTAL ABDOMINAL HYSTERECT W/WO RMVL TUBE OVARY Hysterectomy, TOTAL KNEE REPLACEMENT 2009 FAMILY HISTORY Problem Relation Age of Onset Diabetes Mother Stroke Mother Hypertension Mother Heart Father Hypertension Father Heart disease Brother Diabetes Brother Social History Tobacco Use Smoking status: Former Years: 15 Types: Cigarettes Quit date: 1982 Years since quittin.4 Smokeless tobacco: Never Substance Use Topics Alcohol use: No Drug use: No Allergies: Oxycodone-Acetamino* Other: See Comments Cortisone Doxycycline Unknown Iv Dye [Iodinated C* Rash Montelukast Unknown, Rash Oxycodone Unknown Sulfa (Sulfonamide * Latex Rash Current Outpatient Medications Medication Sig HYDROcodone-Acetaminophen (NORCO) 10-325 mg per tablet Take 1 tablet by mouth every 6 hours as needed for pain for up to 30 days. Do not start before January 06, 2024. Pregabalin (LYRICA) 200 mg capsule Take 1 capsule by mouth three times a day for 30 days. Do not start before January 06, 2024. HYDROcodone-Acetaminophen (NORCO) 10-325 mg per tablet Take 1 tablet by mouth every 6 hours as needed for pain for up to 30 days. Do not start before December 07, 2023. lidocaine (XYLOCAINE) 5 % ointment Apply to affected area four times a day as needed (pain). methylPREDNISolone (MEDROL DOSE-PACK) 4 mg Dose-Pack Take 1 tablet by mouth as directed. As Instructed per package MEDICATION, NON-DATABASE Apply 1 Each to affected area once daily. Cervical Traction Device Metaxalone 400 mg tab Take 0.5-1 tablets by mouth three times daily as needed (pain/). losartan (COZAAR) 50 mg tablet 50 mg twice daily. hydrALAZINE (APRESOLINE) 10 mg tablet TAKE 1 TABLET BY MOUTH FOUR TIMES DAILY NEEDED IF SBP >160 FOR 30 DAYS nebivolol (BYSTOLIC) 10 mg tablet Take 10 mg by mouth once daily. ondansetron orally disintegrating (ZOFRAN ODT) 4 mg disintegrating tablet Take 4 mg by mouth every 6 hours as needed. For Nausea lidocaine (LIDODERM) 5 % Apply 1 Patch as directed every 24 hours. ondansetron (ZOFRAN) 4 mg tablet TAKE 1 TABLET BY MOUTH EVERY 6 HOURS NEEDED FOR NAUSEA OR FOR VOMITING omeprazole (PRILOSEC) 20 mg capsule TAKE 1 CAPSULE BY MOUTH DAILY ON AN EMPTY STOMACH QVAR REDIHALER 80 mcg/actuation inhaler INHALE 2 PUFFS BY MOUTH and into the lungs TWICE DAILY aspirin, enteric coated (ASPIRIN, ENTERIC COATED) 81 mg EC tablet 81 mg. albuterol HFA (PROVENTIL HFA, VENTOLIN HFA) 90 mcg/actuation inhaler INHALE 2 PUFFS BY MOUTH and into the lungs FOUR TIMES DAILY NEEDED furosemide (LASIX) 40 mg tablet 40 mg. ALPRAZolam (XANAX) 1 mg tablet Take 1 mg by mouth three times daily. mv, min #36-iron,carbonyl-FA (GERITOL COMPLETE) 16 mg iron- 0.38 mg tab Geritol Complete 16 mg iron- 0.38 mg tablet lidocaine-prilocaine (EMLA) 2.5-2.5 % cream 1-2 g as needed. furosemide (LASIX) 20 mg tablet Take 20 mg by mouth as needed. iron/vitamin B complex (GERITOL ORAL) Take by mouth. tolterodine ER (DETROL LA) 4 mg 24 hr capsule Take 1 capsule by mouth once daily. lidocaine-methyl lisa-menthol 5-10-3 % ktop lidocaine 5 % oint fluticasone (FLOVENT) 220 mcg/actuation inhaler flovent hfa 220 mcg/act aero methylphenidate (RITALIN) 20 mg tablet Take 20 mg by mouth twice daily. levothyroxine (SYNTHROID) 50 mcg tablet Take 50 mcg by mouth daily before breakfast. ergocalciferol 50,000 unit capsule (VITAMIN D2, DRISDOL) Take 50,000 Units by mouth once each week. meclizine (ANTIVERT) 25 mg tab Take 25 mg by mouth as needed. For dizziness No current facility-administered medications for this visit. PHYSICAL EXAMINATION: VIDEO EXAM: (performed via video enabled technology) GENERAL: alert and appropriate, in no distress and well-hydrated, well nourished HEAD: normocephalic, no abnormality or lesion noted RESPIRATORY: breathing non-labored NEUROLOGIC: no obvious deficit ASSESSMENT: Patient is stable. Chronic pain is persistent. Medications are helping Carol Ann Orellana to have an improved quality of life. Patient compliance with Opioid Contract: patient is compliant Encounter Diagnosis ICD-10-CM 1. 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 Lumbar radiculopathy M54.16 4. Neck pain M54.2 5. 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 If at any time the patient does not feel the medications are helping them to achieve these goals, the medications may be discontinued. The patient reports a reduction in pain and/or an improved level of functioning with activities of daily living, denies any significant adverse effects, is compliant with the pain management agreement and there are no signs of medication misuse, abuse or diversion; therefore, the medications will be continued. Continue [place] Continue tramadol ER very sparingly A prescription for narcan (naloxone) has been offered to the patient. Continue Lyrica Pt is declining procedures at this time Continue Lidocaine ointment Continue Lidocaine patches Continue OTC stool softeners and Colace Continue LB brace Continue care with specialists Continue metaxalone She went to therapy from 04/14/23 to 04/29/23 then was d/c to complete exercises at home F/U in 2 months Zoila Valiente APRN.CNP documented in this encounterSum[facility]05-21-2024 Instructions* Patient Instructions* Zoila Valiente APRN.CNP - 02/02/2024 6:37 AM EDT Continue [place] Continue tramadol ER very sparingly She was started on this medication and has been maintained on it by Dr Dawson and [employer]'s working with her. She is compliant with the pain management agreement and there have been no signs of medication misuse, abuse or diversion. A prescription for narcan (naloxone) has been offered to the patient. Continue Lyrica - iPt is declining procedures at this time Continue Lidocaine ointment Continue Lidocaine patches Continue OTC stool softeners and Colace Continue LB brace Continue care with specialists Continue metaxalone She went to therapy from 04/14/23 to 04/29/23 then was d/c to complete exercises at home F/U in 2 months documented in this encounterSum[facility] Health05-21-2024 Telephone encounter Note * Telephone Encounter - Mercedes Amor MA - 02/02/2024 6:13 AM EDT Items addressed in this encounter: MyChart Encounter Able to close encounter. Mercedes Amor MA February 02, 2024 6:13 AM 6:13 AM [facility]05-21-2024 Miscellaneous Notes* Telephone Encounter - Mercedes Amor MA - 02/02/2024 6:13 AM EDT Items addressed in this encounter: MyChart Encounter Able to close encounter. Mercedes Amor MA February 02, 2024 6:13 AM 6:13 AM documented in this encounterSumma Health05-21-2024 Telephone encounter Note * Telephone Encounter - Mercedes Amor MA - 02/02/2024 6:10 AM EDT Items addressed in this encounter: Virtual Visit Pre Check In Able to close encounter. Mercedes Amor MA February 02, 2024 6:11 AM 6:11 AM [facility]-21-[facility]24 Miscellaneous Notes* Telephone Encounter - Mercedes Amor MA - 02/02/2024 6:10 AM EDT Items addressed in this encounter: Virtual Visit Pre Check In Able to close encounter. Mercedes Amor MA February 02, 2024 6:11 AM 6:11 AM documented in this encounterSumma Health05-12-2024 Note. MICRO - Microbiology PROCEDURE: Urine Culture [*1] SOURCE: Urine BODY SITE: COLLECTED DATE/TIME: 01/23/2024 10:51 EDT RECEIVED DATE/TIME: 01/23/2024 16:21 EDT START DATE/TIME: 01/23/2024 16:22 EDT FREE TEXT SOURCE: FINAL REPORTS Final Report [] Verified Date/Time/Personnel: 01/24/2024 14:25 EDT <10,000 cfu/ml. No Significant growth. Sensitivity not indicated. Performing Locations *1: This test was performed at: [address], [facility] , [facility] ([place])12-30-2023 History of Present illness Narrative* Zoila Valiente APRN.NUCLEAR FUEL PROCESSING TECHNICIAN - 12/30/2023 1:30 PM EDT This video visit was performed via [employer] Video Visit. Patient consented to receive health care services via virtual visit for this encounter Provider Location[facility] Patient Location: Patient Home or Place of Residence I have communicated my name and active licensure. The patient's identity and physical location wereverified at the time of this visit. Either the patient or their legal workforce services representative has been informed of the risks and benefits of -- and alternatives to -- treatment through a remote evaluation andconsents to proceed with the evaluation remotely. Chief Complaint: Pain History of Present Illness: Carol Ann Orellana is a 78 year old year old female being seen at [facility] for a evaluation and/or management of her chronic pain. The patient was last seen virtually on 11/06/2023. She states that since the last visit symptoms have been stable. Her medical history has not changed and she denies any hospital stays or ER visits. Pain Location: lower back -mid back, right leg pain, left shoulder, neck Radiation: arms and legs Character: aching Intensity: 5/10 Numbness/tingling: legs, left hand Burning: occasionally feet Weakness: arms Falls: denies Worsening factors: physical activity and cold weather Relieving factors: rest and medication Patient denies any bowel or bladder dysfunction. The patient is currently prescribed Tramadol ER, [place], lyrica and lidocaine cream from our office.The last dose of [place] was taken today and tramadol yesterday. The medications are partially effective. PDMP website checked and validated. The OARRS report has been reviewed and is consistent with the patients medical history and medication intake. Last Opioid agreement effective date: 11/06/2023 Last UDS: Reviewed - No inconsistencies noted. 10/22/2023 1:14 PM EST UDS CONSISTENT 05/15/2023 3:11 PM EDT UDS CONSISTENT 11/11/2022 10:19 PM EST UDS CONSISTENT No results found for: "SUMM" Urine Panel: Lab Results Component Value Date Cannabinoid Quant, Urine <16 10/15/2023 Benzoylecgonine Quant, Urine <24 10/15/2023 6-Acetylmorphine Quant, Urine <5 10/15/2023 Amphetamine Quant, Urine <5 10/15/2023 Methamphetamine Quant, Urine <8 10/15/2023 Buprenorphine Quant, Urine <20 10/15/2023 Norbuprenorphine Quant, Urine <20 10/15/2023 Methadone Quant, Urine <16 10/15/2023 EDDP Quant, Urine <6 10/15/2023 Tramadol Quant, Urine <25 10/15/2023 Desmethyltramadol Quant, Urine <20 10/15/2023 Fentanyl Quant, Urine <6 10/15/2023 Norfentanyl Quant, Urine <6 10/15/2023 Codeine Quant, Urine <11 10/15/2023 Morphine Quant, Urine <10 10/15/2023 Dihydrocodeine Quant, Urine 479 (H) 10/15/2023 Hydrocodone Quant, Urine 1,595 (H) 10/15/2023 Oxycodone Quant, Urine <10 10/15/2023 Hydromorphone Quant, Urine 607 (H) 10/15/2023 Oxymorphone Quant, Urine <5 10/15/2023 No results found for: "SUMMAR" Chronic Pain Functional Assessment Tools Pain Disability Index: 10/31/2023 12/23/2023 Pain Disability Index Family/Home Responsibilities: This category includes chores or duties performed around the house (e.g. yard work), errands or favors for other family members (e.g. driving the children to school) 0 No Disability 5 Recreation: This category includes hobbies, sports, and other similar leisure time activities 0 No disability 8 Social Activity: This category refers to activities which involve participation with friends and acquaintances, other than family members. It includes parties, theater, concerts, dinning out, and other social functions 0 No disability 6 Occupation: This category refers to activities that are a part of or directly related to ones' job.This includes non-paying jobs as well, such as that of a housewife or volunteer worker 0 No disability 0 No disability Sexual Behavior: This category refers to the frequency and quality of one's sex life 0 No disability 0 No disability Self Care: This category includes activities which involve personal maintenance and independent daily living (e.g. taking a shower, driving, getting dress, etc) 0 No disability 0 No disability Life Support Activity: This category refers to basic-life supporting behaviors such as eating, sleeping, and breathing 0 No disability 0 No disability PDI Score 0 19 Pain Enjoyment of Life and General Activity Scale (0-10): PEG: A Three-Item Scale Assessing Pain Intensity and Interference What number best describes your pain on average in the past week?: 8 (12/23/2023 3:52 PM) What number best describes how, during the past week, pain has interfered with your enjoyment of life?: 8 (12/23/2023 3:52 PM) What number best describes how, during the past week, pain has interfered with your general activity?: 7 (12/23/2023 3:52 PM) REVIEW OF SYSTEMS: GENERAL: No weight loss or fevers RESPIRATORY: Negative for cough CARDIOVASCULAR: Negative for chest pain GI: No nausea, vomiting, or diarrhea. MUSCULOSKELETAL: back pain and muscle pain PAST MEDICAL HISTORY Diagnosis Date Bladder infection Breast cancer (HCC) GERD (gastroesophageal reflux disease) Kidney stones Leg pain Migraines Neurogenic bladder Osteoarthrosis, unspecified whether generalized or localized, other specified sites Osteoporosis Other and unspecified disc disorder of unspecified region Intervertebral disc disorders DIAMOND (stress urinary incontinence, female) Thyroid disease Urethral hypermobility Urge incontinence Urgency of urination PAST SURGICAL HISTORY Procedure Laterality Date ANESTHESIA TOTAL KNEE REPLACEMENT APPENDECTOMY 08/1961 ARTHROTOMY KNEE W/SYNOVIAL BIOPSY ONLY Semilunar cartilage, knee - right BACK SURGERY HX 2011 BLADDER SURGERY HX 2012 BREAST SURGERY HX Right 2018 breast and 3 lymph nodes removed CARPAL TUNNEL Left 12/1979 CATARACT EXTRACTION HX CATARACT EXTRACTION HX 2009 CHOLECYSTECTOMY ELBOW SURGERY HX Left 1994 EXPLORATORY LAPAROTOMY CELIOTOMY W/WO BIOPSY SPX Laparotomy, exp - lysis of adhesions HAND SURGERY HX Right 1989 KNEE SURGERY HX Right removal of meniscus LX EXCISION OF BLADDER TUMOR 1979, 1983 OOPHORECTOMY PARTIAL/TOTAL UNI/BI Oophorectomy TOTAL ABDOMINAL HYSTERECT W/WO RMVL TUBE OVARY Hysterectomy, TOTAL KNEE REPLACEMENT 2009 FAMILY HISTORY Problem Relation Age of Onset Diabetes Mother Stroke Mother Hypertension Mother Heart Father Hypertension Father Heart disease Brother Diabetes Brother Social History Tobacco Use Smoking status: Former Years: 15 Types: Cigarettes Quit date: 1982 Years since quittin.3 Smokeless tobacco: Never Substance Use Topics Alcohol use: No Drug use: No Allergies: Oxycodone-Acetamino* Other: See Comments Cortisone Doxycycline Unknown Iv Dye [Iodinated C* Rash Montelukast Unknown, Rash Oxycodone Unknown Sulfa (Sulfonamide * Latex Rash Current Outpatient Medications Medication Sig HYDROcodone-Acetaminophen (NORCO) 10-325 mg per tablet Take 1 tablet by mouth every 6 hours as needed for pain for up to 30 days. Do not start before November 07, 2023. pregabalin (LYRICA) 200 mg capsule Take 1 capsule by mouth three times a day for 30 days. HYDROcodone-Acetaminophen (NORCO) 10-325 mg per tablet Take 1 tablet by mouth every 6 hours as needed for pain for up to 30 days. Do not start before December 07, 2023. lidocaine (XYLOCAINE) 5 % ointment Apply to affected area four times a day as needed (pain). methylPREDNISolone (MEDROL DOSE-PACK) 4 mg Dose-Pack Take 1 tablet by mouth as directed. As Instructed per package MEDICATION, NON-DATABASE Apply 1 Each to affected area once daily. Cervical Traction Device Metaxalone 400 mg tab Take 0.5-1 tablets by mouth three times daily as needed (pain/). losartan (COZAAR) 50 mg tablet 50 mg twice daily. hydrALAZINE (APRESOLINE) 10 mg tablet TAKE 1 TABLET BY MOUTH FOUR TIMES DAILY NEEDED IF SBP >160 FOR 30 DAYS nebivolol (BYSTOLIC) 10 mg tablet Take 10 mg by mouth once daily. ondansetron orally disintegrating (ZOFRAN ODT) 4 mg disintegrating tablet Take 4 mg by mouth every 6 hours as needed. For Nausea lidocaine (LIDODERM) 5 % Apply 1 Patch as directed every 24 hours. ondansetron (ZOFRAN) 4 mg tablet TAKE 1 TABLET BY MOUTH EVERY 6 HOURS NEEDED FOR NAUSEA OR FOR VOMITING omeprazole (PRILOSEC) 20 mg capsule TAKE 1 CAPSULE BY MOUTH DAILY ON AN EMPTY STOMACH QVAR REDIHALER 80 mcg/actuation inhaler INHALE 2 PUFFS BY MOUTH and into the lungs TWICE DAILY aspirin, enteric coated (ASPIRIN, ENTERIC COATED) 81 mg EC tablet 81 mg. albuterol HFA (PROVENTIL HFA, VENTOLIN HFA) 90 mcg/actuation inhaler INHALE 2 PUFFS BY MOUTH and into the lungs FOUR TIMES DAILY NEEDED furosemide (LASIX) 40 mg tablet 40 mg. ALPRAZolam (XANAX) 1 mg tablet Take 1 mg by mouth three times daily. mv, min #36-iron,carbonyl-FA (GERITOL COMPLETE) 16 mg iron- 0.38 mg tab Geritol Complete 16 mg iron- 0.38 mg tablet lidocaine-prilocaine (EMLA) 2.5-2.5 % cream 1-2 g as needed. furosemide (LASIX) 20 mg tablet Take 20 mg by mouth as needed. iron/vitamin B complex (GERITOL ORAL) Take by mouth. tolterodine ER (DETROL LA) 4 mg 24 hr capsule Take 1 capsule by mouth once daily. lidocaine-methyl lisa-menthol 5-10-3 % ktop lidocaine 5 % oint fluticasone (FLOVENT) 220 mcg/actuation inhaler flovent hfa 220 mcg/act aero methylphenidate (RITALIN) 20 mg tablet Take 20 mg by mouth twice daily. levothyroxine (SYNTHROID) 50 mcg tablet Take 50 mcg by mouth daily before breakfast. ergocalciferol 50,000 unit capsule (VITAMIN D2, DRISDOL) Take 50,000 Units by mouth once each week. meclizine (ANTIVERT) 25 mg tab Take 25 mg by mouth as needed. For dizziness No current facility-administered medications for this visit. PHYSICAL EXAMINATION: VIDEO EXAM: (performed via video enabled technology) GENERAL: alert and appropriate, in no distress and well-hydrated, well nourished HEAD: normocephalic, no abnormality or lesion noted RESPIRATORY: breathing non-labored NEUROLOGIC: no obvious deficit ASSESSMENT: Patient is stable. Chronic pain is persistent. Medications are helping Carol Ann Orellana to have an improved quality of life. Patient compliance with Opioid Contract: patient is compliant Encounter Diagnosis ICD-10-CM 1. 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 Lumbar radiculopathy M54.16 4. Neck pain M54.2 5. 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 Chronic left shoulder pain M25.512 G89.29 PLAN: The patient understands the goal of our treatment is a reduction in pain and/or an improved level of functioning with activities of daily living. If at any time the patient does not feel the medications are helping them to achieve these goals, the medications may be discontinued. The patient reports a reduction in pain and/or an improved level of functioning with activities of daily living, denies any significant adverse effects, is compliant with the pain management agreement and there are no signs of medication misuse, abuse or diversion; therefore, the medications will be continued. Continue [place] Continue tramadol ER very sparingly A prescription for narcan (naloxone) has been offered to the patient. Continue Lyrica Pt is declining procedures at this time Continue Lidocaine ointment Continue Lidocaine patches Continue OTC stool softeners and Colace Continue LB brace Continue care with specialists Continue metaxalone If ineffective she will trial bilateral SNRB at C4-5 She went to therapy from 04/14/23 to 04/29/23 then was d/c to complete exercises at home F/U in 1 month Zoila Valiente APRN.SOPHIA documented in this encounterSumma Health04-17-2024 Instructions* Patient Instructions* Zoila Valiente APRN.SOPHIA - 12/30/2023 6:57 AM EDT Continue [place] Continue tramadol ER very sparingly She was started on this medication and has been maintained on it by Dr Dawson and [employer]'s working with her. She is compliant with the pain management agreement and there have been no signs of medication misuse, abuse or diversion. A prescription for narcan (naloxone) has been offered to the patient. Continue Lyrica - increase to 200 mg tid Pt is declining procedures at this time Continue Lidocaine ointment Continue Lidocaine patches Continue OTC stool softeners and Colace Continue LB brace Continue care with specialists Continue metaxalone If ineffective she will trial bilateral SNRB at C4-5 She went to therapy from 04/14/23 to 04/29/23 then was d/c to complete exercises at home F/U in 1 month documented in this encounterSumma Health04-17-2024 Miscellaneous Notes* Telephone Encounter - Mercedes Amor MA - 12/30/2023 6:29 AM EDT Items addressed in this encounter: MyChart Encounter Able to close encounter. Mercedes Amor MA December 30, 2023 6:29 AM 6:29 AM documented in this encounterSumma Health04-17-2024 Miscellaneous Notes* Telephone Encounter - Mercedes Amor MA - 12/30/2023 6:28 AM EDT Items addressed in this encounter: Virtual Visit Pre Check In Able to close encounter. Mercedes Amor MA December 30, 2023 6:28 AM 6:28 AM documented in this encounterSumma Health02-23-2024 Miscellaneous Notes* Telephone Encounter - Mercedes Amro MA - 11/06/2023 1:46 PM EST Items addressed in this encounter: MyChart Encounter Able to close encounter. Mercedes Amor MA November 06, 2023 1:46 PM 1:46 PM documented in this encounterSumma Health02-23-2024 History of Present illness Narrative* Zoila Valiente APRN.NUCLEAR FUEL PROCESSING TECHNICIAN - 11/06/2023 1:30 PM EST This video visit was performed via [employer] Video Visit. Patient consented to receive health care services via virtual visit for this encounter Provider Location: Non-[facility] Patient Location: Patient Home or Place of Residence I have communicated my name and active licensure. The patient's identity and physical location wereverified at the time of this visit. Either the patient or their legal workforce services representative has been informed of the risks and benefits of -- and alternatives to -- treatment through a remote evaluation andconsents to proceed with the evaluation remotely. Chief Complaint: Pain History of Present Illness: Carol Ann Orellana is a 78 year old year old female being seen at [facility] for a evaluation and/or management of her chronic pain. The patient was last seen virtually on 10/07/2023. She states that since the last visit symptoms have been worsening in her right leg. Otherwise, her medical history has not changed and she denies any hospital stays or ER visits. Pain Location: lower back -mid back, right leg pain, left shoulder, neck Radiation: arms and legs Character: aching Intensity: 4/10 Numbness/tingling: legs, left hand Burning: occasionally feet Weakness: arms Falls: denies Worsening factors: physical activity and cold weather Relieving factors: rest and medication Patient denies any bowel or bladder dysfunction. The patient is currently prescribed Tramadol ER, [place], lyrica and lidocaine cream from our office.The last dose of [place] was taken today and tramadol yesterday. The medications are partially effective. PDMP website checked and validated. The OARRS report has been reviewed and is consistent with the patients medical history and medication intake. Last Opioid agreement effective date: 10/03/2022 Last UDS: Reviewed - No inconsistencies noted. 10/22/2023 1:14 PM EST UDS CONSISTENT 05/15/2023 3:11 PM EDT UDS CONSISTENT 11/11/2022 10:19 PM EST UDS CONSISTENT No results found for: "SUMM" Urine Panel: Lab Results Component Value Date Cannabinoid Quant, Urine <16 10/15/2023 Benzoylecgonine Quant, Urine <24 10/15/2023 6-Acetylmorphine Quant, Urine <5 10/15/2023 Amphetamine Quant, Urine <5 10/15/2023 Methamphetamine Quant, Urine <8 10/15/2023 Buprenorphine Quant, Urine <20 10/15/2023 Norbuprenorphine Quant, Urine <20 10/15/2023 Methadone Quant, Urine <16 10/15/2023 EDDP Quant, Urine <6 10/15/2023 Tramadol Quant, Urine <25 10/15/2023 Desmethyltramadol Quant, Urine <20 10/15/2023 Fentanyl Quant, Urine <6 10/15/2023 Norfentanyl Quant, Urine <6 10/15/2023 Codeine Quant, Urine <11 10/15/2023 Morphine Quant, Urine <10 10/15/2023 Dihydrocodeine Quant, Urine 479 (H) 10/15/2023 Hydrocodone Quant, Urine 1,595 (H) 10/15/2023 Oxycodone Quant, Urine <10 10/15/2023 Hydromorphone Quant, Urine 607 (H) 10/15/2023 Oxymorphone Quant, Urine <5 10/15/2023 No results found for: "SUMMAR" Chronic Pain Functional Assessment Tools Pain Disability Index: Pain Disability Index 10/03/2023 10/31/2023 Family/Home Responsibilities: This category includes chores or duties performed around the house (e.g. yard work), errands or favors for other family members (e.g. driving the children to school) 0 No Disability 0 No Disability Recreation: This category includes hobbies, sports, and other similar leisure time activities 0 No disability 0 No disability Social Activity: This category refers to activities which involve participation with friends and acquaintances, other than family members. It includes parties, theater, concerts, dinning out, and other social functions 0 No disability 0 No disability Occupation: This category refers to activities that are a part of or directly related to ones' job.This includes non-paying jobs as well, such as that of a housewife or volunteer worker 0 No disability 0 No disability Sexual Behavior: This category refers to the frequency and quality of one's sex life 0 No disability 0 No disability Self Care: This category includes activities which involve personal maintenance and independent daily living (e.g. taking a shower, driving, getting dress, etc) 0 No disability 0 No disability Life Support Activity: This category refers to basic-life supporting behaviors such as eating, sleeping, and breathing 0 No disability 0 No disability PDI Score 0 0 Pain Enjoyment of Life and General Activity Scale (0-10): PEG: A Three-Item Scale Assessing Pain Intensity and Interference What number best describes your pain on average in the past week?: 6 (10/31/2023 9:13 PM) What number best describes how, during the past week, pain has interfered with your enjoyment of life?: 5 (10/31/2023 9:13 PM) What number best describes how, during the past week, pain has interfered with your general activity?: 5 (10/31/2023 9:13 PM) REVIEW OF SYSTEMS: GENERAL: No weight loss or fevers RESPIRATORY: Negative for cough CARDIOVASCULAR: Negative for chest pain GI: No nausea, vomiting, or diarrhea. MUSCULOSKELETAL: back pain and muscle pain PAST MEDICAL HISTORY Diagnosis Date Bladder infection Breast cancer (HCC) GERD (gastroesophageal reflux disease) Kidney stones Leg pain Migraines Neurogenic bladder Osteoarthrosis, unspecified whether generalized or localized, other specified sites Osteoporosis Other and unspecified disc disorder of unspecified region Intervertebral disc disorders DIAMOND (stress urinary incontinence, female) Thyroid disease Urethral hypermobility Urge incontinence Urgency of urination PAST SURGICAL HISTORY Procedure Laterality Date ANESTHESIA TOTAL KNEE REPLACEMENT APPENDECTOMY 08/1961 ARTHROTOMY KNEE W/SYNOVIAL BIOPSY ONLY Semilunar cartilage, knee - right BACK SURGERY HX 2011 BLADDER SURGERY HX 2012 BREAST SURGERY HX Right 2018 breast and 3 lymph nodes removed CARPAL TUNNEL Left 12/1979 CATARACT EXTRACTION HX CATARACT EXTRACTION HX 2009 CHOLECYSTECTOMY ELBOW SURGERY HX Left 1994 EXPLORATORY LAPAROTOMY CELIOTOMY W/WO BIOPSY SPX Laparotomy, exp - lysis of adhesions HAND SURGERY HX Right 1989 KNEE SURGERY HX Right removal of meniscus LX EXCISION OF BLADDER TUMOR 1979, 1983 OOPHORECTOMY PARTIAL/TOTAL UNI/BI Oophorectomy TOTAL ABDOMINAL HYSTERECT W/WO RMVL TUBE OVARY Hysterectomy, TOTAL KNEE REPLACEMENT 2009 FAMILY HISTORY Problem Relation Age of Onset Diabetes Mother Stroke Mother Hypertension Mother Heart Father Hypertension Father Heart disease Brother Diabetes Brother Social History Tobacco Use Smoking status: Former Years: 15 Types: Cigarettes Quit date: 1982 Years since quittin.1 Smokeless tobacco: Never Substance Use Topics Alcohol use: No Drug use: No Allergies: Oxycodone-Acetamino* Other: See Comments Cortisone Doxycycline Unknown Iv Dye [Iodinated C* Rash Montelukast Unknown, Rash Oxycodone Unknown Sulfa (Sulfonamide * Latex Rash Current Outpatient Medications Medication Sig HYDROcodone-Acetaminophen (NORCO) 10-325 mg per tablet Take 1 tablet by mouth every 6 hours as needed for pain for up to 30 days. Do not start before October 08, 2023. pregabalin (LYRICA) 150 mg capsule Take 1 capsule by mouth three times a day for 30 days. lidocaine (XYLOCAINE) 5 % ointment Apply to affected area four times a day as needed (pain). methylPREDNISolone (MEDROL DOSE-PACK) 4 mg Dose-Pack Take 1 tablet by mouth as directed. As Instructed per package MEDICATION, NON-DATABASE Apply 1 Each to affected area once daily. Cervical Traction Device Metaxalone 400 mg tab Take 0.5-1 tablets by mouth three times daily as needed (pain/). losartan (COZAAR) 50 mg tablet 50 mg twice daily. hydrALAZINE (APRESOLINE) 10 mg tablet TAKE 1 TABLET BY MOUTH FOUR TIMES DAILY NEEDED IF SBP >160 FOR 30 DAYS nebivolol (BYSTOLIC) 10 mg tablet Take 10 mg by mouth once daily. ondansetron orally disintegrating (ZOFRAN ODT) 4 mg disintegrating tablet Take 4 mg by mouth every 6 hours as needed. For Nausea lidocaine (LIDODERM) 5 % Apply 1 Patch as directed every 24 hours. ondansetron (ZOFRAN) 4 mg tablet TAKE 1 TABLET BY MOUTH EVERY 6 HOURS NEEDED FOR NAUSEA OR FOR VOMITING omeprazole (PRILOSEC) 20 mg capsule TAKE 1 CAPSULE BY MOUTH DAILY ON AN EMPTY STOMACH QVAR REDIHALER 80 mcg/actuation inhaler INHALE 2 PUFFS BY MOUTH and into the lungs TWICE DAILY aspirin, enteric coated (ASPIRIN, ENTERIC COATED) 81 mg EC tablet 81 mg. albuterol HFA (PROVENTIL HFA, VENTOLIN HFA) 90 mcg/actuation inhaler INHALE 2 PUFFS BY MOUTH and into the lungs FOUR TIMES DAILY NEEDED furosemide (LASIX) 40 mg tablet 40 mg. ALPRAZolam (XANAX) 1 mg tablet Take 1 mg by mouth three times daily. mv, min #36-iron,carbonyl-FA (GERITOL COMPLETE) 16 mg iron- 0.38 mg tab Geritol Complete 16 mg iron- 0.38 mg tablet lidocaine-prilocaine (EMLA) 2.5-2.5 % cream 1-2 g as needed. furosemide (LASIX) 20 mg tablet Take 20 mg by mouth as needed. iron/vitamin B complex (GERITOL ORAL) Take by mouth. tolterodine ER (DETROL LA) 4 mg 24 hr capsule Take 1 capsule by mouth once daily. lidocaine-methyl lisa-menthol 5-10-3 % ktop lidocaine 5 % oint fluticasone (FLOVENT) 220 mcg/actuation inhaler flovent hfa 220 mcg/act aero methylphenidate (RITALIN) 20 mg tablet Take 20 mg by mouth twice daily. levothyroxine (SYNTHROID) 50 mcg tablet Take 50 mcg by mouth daily before breakfast. ergocalciferol 50,000 unit capsule (VITAMIN D2, DRISDOL) Take 50,000 Units by mouth once each week. meclizine (ANTIVERT) 25 mg tab Take 25 mg by mouth as needed. For dizziness No current facility-administered medications for this visit. PHYSICAL EXAMINATION: VIDEO EXAM: (performed via video enabled technology) GENERAL: alert and appropriate, in no distress and well-hydrated, well nourished HEAD: normocephalic, no abnormality or lesion noted RESPIRATORY: breathing non-labored NEUROLOGIC: no obvious deficit ASSESSMENT: Patient is stable. Chronic pain is persistent. Medications are helping Carol Ann Orellana to have an improved quality of life. Patient compliance with Opioid Contract: patient is compliant Encounter Diagnosis ICD-10-CM 1. 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 Lumbar radiculopathy M54.16 4. Neck pain M54.2 5. 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 Chronic left shoulder pain M25.512 G89.29 PLAN: The patient understands the goal of our treatment is a reduction in pain and/or an improved level of functioning with activities of daily living. If at any time the patient does not feel the medications are helping them to achieve these goals, the medications may be discontinued. The patient reports a reduction in pain and/or an improved level of functioning with activities of daily living, denies any significant adverse effects, is compliant with the pain management agreement and there are no signs of medication misuse, abuse or diversion; therefore, the medications will be continued. Continue [place] Continue tramadol ER very sparingly A prescription for narcan (naloxone) has been offered to the patient. Continue Lyrica Pt is declining procedures at this time Continue Lidocaine ointment Continue Lidocaine patches Continue OTC stool softeners and Colace Continue LB brace Continue care with specialists Continue metaxalone If ineffective she will trial bilateral SNRB at C4-5 She went to therapy from 04/14/23 to 04/29/23 then was d/c to complete exercises at home F/U in 1 month Zoila Valiente APRN.SOPHIA documented in this encounterSum[facility] Health02-23-2024 Instructions* Patient Instructions* Zoila Valiente APRN.SOPHIA - 11/06/2023 7:57 AM EST Continue [place] Continue tramadol ER very sparingly She was started on this medication and has been maintained on it by Dr Dawson and [employer]'s working with her. She is compliant with the pain management agreement and there have been no signs of medication misuse, abuse or diversion. A prescription for narcan (naloxone) has been offered to the patient. Continue Lyrica - increase to 200 mg tid Pt is declining procedures at this time Continue Lidocaine ointment Continue Lidocaine patches Continue OTC stool softeners and Colace Continue LB brace Continue care with specialists Continue metaxalone If ineffective she will trial bilateral SNRB at C4-5 She went to therapy from 04/14/23 to 04/29/23 then was d/c to complete exercises at home F/U in 1 month documented in this encounterSumma Health02-23-2024 Miscellaneous Notes* Telephone Encounter - Mercedes Amor MA - 11/06/2023 6:06 AM EST Items addressed in this encounter: MyChart Encounter Able to close encounter. Mercedes Amor MA November 06, 2023 6:07 AM 6:07 AM documented in this encounterSumma Health02-23-2024 Miscellaneous Notes* Telephone Encounter - Mercedes Amor MA - 11/06/2023 6:06 AM EST Items addressed in this encounter: Virtual Visit Pre Check In Able to close encounter. Mercedes Amor MA November 06, 2023 6:06 AM 6:06 AM documented in this encounterSumma Health02-22-2024 Miscellaneous Notes* Telephone Encounter - Mercedes Amor MA - 11/05/2023 2:27 PM EST Items addressed in this encounter: MyChart Encounter Able to close encounter. Mercedes Amor MA November 05, 2023 2:27 PM 2:27 PM documented in this encounterSumma Health02-20-2024 Note. MICRO - Microbiology PROCEDURE: Fungal Culture with Stain if Ind [O1 *1] SOURCE: Oral Cavity BODY SITE: COLLECTED DATE/TIME: 10/28/2023 12:22 EST RECEIVED DATE/TIME: 10/28/2023 12:28 EST START DATE/TIME: 10/28/2023 12:29 EST FREE TEXT SOURCE: FINAL REPORTS Final Report [] Verified Date/Time/Personnel: 11/03/2023 09:27 EST No fungus isolated in 1 week. PRELIMINARY REPORTS Preliminary Report [] Verified Date/Time/Personnel: 11/02/2023 08:15 EST No fungus isolated to date. Final report to follow. STAINS FUNSM [] Verified Date/Time/Personnel: 10/29/2023 11:59 EST No fungal elements observed by calcofluor white stain. Order Comments O1: Fungal Culture with Stain if Ind Today Performing Locations *1: This test was performed at: [address], [facility] , [facility] ([place])10-23-2023 Miscellaneous Notes* Telephone Encounter - Mercedes Amor MA - 10/23/2023 3:09 PM EST Items addressed in this encounter: Health Maintenance Review Workque Able to close encounter. Mercedes Amor MA October 23, 2023 3:09 PM 3:09 PM documented in this encounterSumma Health02-07-2024 Miscellaneous Notes* Telephone Encounter - Mercedes Amor MA - 10/21/2023 10:36 AM EST Items addressed in this encounter: MyChart Encounter Able to close encounter.Items addressed in this encounter: Health Maintenance Review Able to close encounter. Mercedes Amor MA October 21, 2023 10:37 AM 10:37 AM Mercedes Amor MA October 21, 2023 10:36 AM 10:36 AM documented in this encounterSumma Health12-21-2023 Miscellaneous Notes* Telephone Encounter - Mercedes Amor MA - 09/03/2023 6:21 AM EST Items addressed in this encounter: Virtual Visit Pre Check In Able to close encounter. Mercedes Amor MA September 03, 2023 6:21 AM 6:21 AM documented in this encounterSumma Health12-20-2023 Miscellaneous Notes* Telephone Encounter - Mercedes Amor MA - 09/02/2023 10:06 AM EST Items addressed in this encounter: MyChart Encounter Able to close encounter.Items addressed in this encounter: Health Maintenance Review Able to close encounter. Mercedes Amor MA September 02, 2023 10:07 AM 10:07 AM Mercedes Amor MA September 02, 2023 10:06 AM 10:06 AM documented in this encounterSumma Health12-14-2023 NoteHNO ID: [id number] Author: Ariadna Babb RT(R) Service: ? Author Type: Technologist Type: Progress Notes Filed: 08/27/2023 10:57 AM Note Text: Radiology Service Progress Note PATIENT NAME: Carol Ann Orellana DATE OF SERVICE: August 27, 2023 TIME: 10:57 AM PATIENT IDENTITY VERIFICATION COMPLETED USING TWO (2) IDENTIFIERS: Name and Date of confirmed by patient verbally. FALL SCREENING: Has the patient had 2 falls in the last year or 1 fall with injury or currently using an Ambulatory Assistive Device (Walker, Cane, Wheelchair, Crutches, etc.)? No PATIENT GENDER DATA: Female. status: : No status: NO. PATIENT RELEVANT IMPLANT DATA REVIEWED: Yes RADIOLOGY DEPARTMENT: MR; Exam(s) Completed: Spine: Lumbar spine PERIPHERAL IV DATA: Not applicable SIGNED BY: RT Veronica(R) August 27, 2023 10:57 [facility]11-16-2023 History of Present illness Narrative* Zoila Valiente APRN.NUCLEAR FUEL PROCESSING TECHNICIAN - 2023 2:00 PM EST This video visit was performed via [employer] Video Visit. Patient consented to receive health care services via virtual visit for this encounter Provider Location[facility] Patient Location: Patient Home or Place of Residence I have communicated my name and active licensure. The patient's identity and physical location wereverified at the time of this visit. Either the patient or their legal workforce services representative has been informed of the risks and benefits of -- and alternatives to -- treatment through a remote evaluation andconsents to proceed with the evaluation remotely. Chief Complaint: Pain History of Present Illness: Carol Ann Orellana is a 78 year old year old female being seen at [facility] for a evaluation and/or management of her chronic pain. The patient was last seen virtually on 06/26/2023. She states that since the last visit symptoms have been persistent. She picked up aflower pot and ever since she has had pain in her lower back down into her feet. She states when she lays down she feels like there is a ball under her right leg. Her medical history has not changed and she denies any hospital stays or ER visits. Pain Location: lower back -mid back, right leg pain, left shoulder, neck Radiation: arms and legs Character: aching Intensity: 5/10 Numbness/tingling: legs, left hand Burning: occasionally feet Weakness: arms Falls: denies Worsening factors: physical activity and cold weather Relieving factors: rest and medication Patient denies any bowel or bladder dysfunction. The patient is currently prescribed Tramadol ER, [place], lyrica and lidocaine cream from our office.The last dose of [place] was taken today and tramadol a couple days ago. The medications are partially effective. PDMP website checked and validated. OARRS report reviewed and is consistent with the patients medical history and medication intake. Last Opioid agreement effective date: 10/03/2022 Pain Panel: Reviewed - Inconsistencies noted. Results do not show use of medication prescribed to this patient. -tramadol, she does not take this regularly Urine Panel: Lab Results Component Value Date Cannabinoid Quant, Urine <16 05/08/2023 Benzoylecgonine Quant, Urine <24 05/08/2023 6-Acetylmorphine Quant, Urine <5 05/08/2023 Amphetamine Quant, Urine <5 05/08/2023 Methamphetamine Quant, Urine <8 05/08/2023 Buprenorphine Quant, Urine <20 05/08/2023 Norbuprenorphine Quant, Urine <20 05/08/2023 Methadone Quant, Urine <16 05/08/2023 EDDP Quant, Urine <6 05/08/2023 Tramadol Quant, Urine <25 05/08/2023 Desmethyltramadol Quant, Urine <20 05/08/2023 Fentanyl Quant, Urine <6 05/08/2023 Norfentanyl Quant, Urine <6 05/08/2023 Codeine Quant, Urine <11 05/08/2023 Morphine Quant, Urine <10 05/08/2023 Dihydrocodeine Quant, Urine 405 (H) 05/08/2023 Hydrocodone Quant, Urine 1,461 (H) 05/08/2023 Oxycodone Quant, Urine <10 05/08/2023 Hydromorphone Quant, Urine 1,085 (H) 05/08/2023 Oxymorphone Quant, Urine <5 05/08/2023 Chronic Pain Functional Assessment Tools Pain Disability Index: Pain Disability Index 06/05/2023 07/28/2023 Family/Home Responsibilities 0 No Disability 0 No Disability Recreation 0 No disability 0 No disability Social Activity 0 No disability 0 No disability Occupation 0 No disability 0 No disability Sexual Behavior 0 No disability 0 No disability Self Care 0 No disability 0 No disability Life Support Activity 0 No disability 0 No disability PDI Score 0 0 Pain Enjoyment of Life and General Activity Scale (0-10): PEG: A Three-Item Scale Assessing Pain Intensity and Interference What number best describes your pain on average in the past week?: 5 (07/28/2023 7:19 PM) What number best describes how, during the past week, pain has interfered with your enjoyment of life?: 3 (07/28/2023 7:19 PM) What number best describes how, during the past week, pain has interfered with your general activity?: 5 (07/28/2023 7:19 PM) REVIEW OF SYSTEMS: GENERAL: No weight loss or fevers RESPIRATORY: Negative for cough CARDIOVASCULAR: Negative for chest pain GI: No nausea, vomiting, or diarrhea. MUSCULOSKELETAL: back pain and muscle pain PAST MEDICAL HISTORY Diagnosis Date Bladder infection Breast cancer (HCC) GERD (gastroesophageal reflux disease) Kidney stones Leg pain Migraines Neurogenic bladder Osteoarthrosis, unspecified whether generalized or localized, other specified sites Osteoporosis Other and unspecified disc disorder of unspecified region Intervertebral disc disorders DIAMOND (stress urinary incontinence, female) Thyroid disease Urethral hypermobility Urge incontinence Urgency of urination PAST SURGICAL HISTORY Procedure Laterality Date ANESTHESIA TOTAL KNEE REPLACEMENT APPENDECTOMY 08/1961 ARTHROTOMY KNEE W/SYNOVIAL BIOPSY ONLY Semilunar cartilage, knee - right BACK SURGERY HX 2011 BLADDER SURGERY HX 2012 BREAST SURGERY HX Right 2018 breast and 3 lymph nodes removed CARPAL TUNNEL Left 12/1979 CATARACT EXTRACTION HX CATARACT EXTRACTION HX 2009 CHOLECYSTECTOMY ELBOW SURGERY HX Left 1994 EXPLORATORY LAPAROTOMY CELIOTOMY W/WO BIOPSY SPX Laparotomy, exp - lysis of adhesions HAND SURGERY HX Right 1989 KNEE SURGERY HX Right removal of meniscus LX EXCISION OF BLADDER TUMOR 1979, 1983 OOPHORECTOMY PARTIAL/TOTAL UNI/BI Oophorectomy TOTAL ABDOMINAL HYSTERECT W/WO RMVL TUBE OVARY Hysterectomy, TOTAL KNEE REPLACEMENT 2010 FAMILY HISTORY Problem Relation Age of Onset Diabetes Mother Stroke Mother Hypertension Mother Heart Father Hypertension Father Heart disease Brother Diabetes Brother Social History Tobacco Use Smoking status: Former Years: 15 Types: Cigarettes Quit date: 1982 Years since quittin.9 Smokeless tobacco: Never Substance Use Topics Alcohol use: No Drug use: No Allergies: Oxycodone-Acetamino* Other: See Comments Cortisone Doxycycline Unknown Iv Dye [Iodinated C* Rash Montelukast Unknown, Rash Oxycodone Unknown Sulfa (Sulfonamide * Latex Rash Current Outpatient Medications Medication Sig HYDROcodone-Acetaminophen (NORCO) 10-325 mg per tablet Take 1 tablet by mouth every 6 hours as needed for pain for up to 30 days. pregabalin (LYRICA) 150 mg capsule Take 1 capsule by mouth three times daily for 30 days. methylPREDNISolone (MEDROL DOSE-PACK) 4 mg Dose-Pack Take 1 tablet by mouth as directed. As Instructed per package MEDICATION, NON-DATABASE Apply 1 Each to affected area once daily. Cervical Traction Device Metaxalone 400 mg tab Take 0.5-1 tablets by mouth three times daily as needed (pain/). losartan (COZAAR) 50 mg tablet 50 mg twice daily. hydrALAZINE (APRESOLINE) 10 mg tablet TAKE 1 TABLET BY MOUTH FOUR TIMES DAILY NEEDED IF SBP >160 FOR 30 DAYS nebivolol (BYSTOLIC) 10 mg tablet Take 10 mg by mouth once daily. ondansetron orally disintegrating (ZOFRAN ODT) 4 mg disintegrating tablet Take 4 mg by mouth every 6 hours as needed. For Nausea lidocaine (LIDODERM) 5 % Apply 1 Patch as directed every 24 hours. ondansetron (ZOFRAN) 4 mg tablet TAKE 1 TABLET BY MOUTH EVERY 6 HOURS NEEDED FOR NAUSEA OR FOR VOMITING omeprazole (PRILOSEC) 20 mg capsule TAKE 1 CAPSULE BY MOUTH DAILY ON AN EMPTY STOMACH QVAR REDIHALER 80 mcg/actuation inhaler INHALE 2 PUFFS BY MOUTH and into the lungs TWICE DAILY aspirin, enteric coated (ASPIRIN, ENTERIC COATED) 81 mg EC tablet 81 mg. albuterol HFA (PROVENTIL HFA, VENTOLIN HFA) 90 mcg/actuation inhaler INHALE 2 PUFFS BY MOUTH and into the lungs FOUR TIMES DAILY NEEDED furosemide (LASIX) 40 mg tablet 40 mg. ALPRAZolam (XANAX) 1 mg tablet Take 1 mg by mouth three times daily. mv, min #36-iron,carbonyl-FA (GERITOL COMPLETE) 16 mg iron- 0.38 mg tab Geritol Complete 16 mg iron- 0.38 mg tablet lidocaine-prilocaine (EMLA) 2.5-2.5 % cream 1-2 g as needed. furosemide (LASIX) 20 mg tablet Take 20 mg by mouth as needed. iron/vitamin B complex (GERITOL ORAL) Take by mouth. tolterodine ER (DETROL LA) 4 mg 24 hr capsule Take 1 capsule by mouth once daily. lidocaine-methyl lisa-menthol 5-10-3 % ktop lidocaine 5 % oint fluticasone (FLOVENT) 220 mcg/actuation inhaler flovent hfa 220 mcg/act aero methylphenidate (RITALIN) 20 mg tablet Take 20 mg by mouth twice daily. levothyroxine (SYNTHROID) 50 mcg tablet Take 50 mcg by mouth daily before breakfast. ergocalciferol 50,000 unit capsule (VITAMIN D2, DRISDOL) Take 50,000 Units by mouth once each week. meclizine (ANTIVERT) 25 mg tab Take 25 mg by mouth as needed. For dizziness No current facility-administered medications for this visit. PHYSICAL EXAMINATION: VIDEO EXAM: (performed via video enabled technology) GENERAL: alert and appropriate, in no distress and well-hydrated, well nourished HEAD: normocephalic, no abnormality or lesion noted RESPIRATORY: breathing non-labored NEUROLOGIC: no obvious deficit ASSESSMENT: Patient is stable. Chronic pain is persistent. Medications are helping Carol Ann Orellana to have an improved quality of life. Patient compliance with Opioid Contract: patient is compliant Encounter Diagnosis ICD-10-CM 1. Other chronic pain G89.29 2. 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 Neck pain M54.2 5. 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 If at any time the patient does not feel the medications are helping them to achieve these goals, the medications may be discontinued. The patient reports a reduction in pain and/or an improved level of functioning with activities of daily living, denies any significant adverse effects, is compliant with the pain management agreement and there are no signs of medication misuse, abuse or diversion; therefore, the medications will be continued. Continue [place] Continue tramadol ER Continue Lyrica Pt is declining procedures at this time Continue Lidocaine ointment Continue Lidocaine patches Continue OTC stool softeners and Colace Continue LB brace Continue care with specialists Continue metaxalone If ineffective she will trial bilateral SNRB at C4-5 She went to therapy from 04/14/23 to 04/29/23 then was d/c to complete exercises at home Encouraged to schedule MRI LS w/wo contrast F/U in 1 month Zoila Valiente APRN.SOPHIA documented in this encounterSumma Health11-16-2023 Instructions* Patient Instructions* Zoila Valiente APRN.CNP - 2023 1:19 PM EST Continue [place] Continue tramadol ER Continue Lyrica Pt is declining procedures at this time Continue Lidocaine ointment Continue Lidocaine patches Continue OTC stool softeners and Colace Continue LB brace Continue care with specialists Continue metaxalone If ineffective she will trial bilateral SNRB at C4-5 She went to therapy from 04/14/23 to 04/29/23 then was d/c to complete exercises at home Encouraged MRI LS w/wo contrast F/U in 1 month documented in this encounterSumma Health11-16-2023 Miscellaneous Notes* Telephone Encounter - Mercedes Amor MA - 2023 6:20 AM ESTSummary: Virtual Visit Pre Check In Items addressed in this encounter: Virtual Visit Pre Check In Able to close encounter. Mercedes Amor MA 2023 6:20 AM 6:20 AM documented in this encounterSumma Health10-13-2023 Miscellaneous Notes* Telephone Encounter - Mercedes Amor MA - 06/26/2023 2:17 PM EDTSummary: follow up appt Items addressed in this encounter: MyChart Encounter Able to close encounter. Mercedes Amor MA June 26, 2023 2:17 PM 2:17 PM documented in this encounterSumma Health10-13-2023 History of Present illness Narrative* Zoila Valiente APRN.NUCLEAR FUEL PROCESSING TECHNICIAN - 06/26/2023 2:00 PM EDT This video visit was performed via [employer] Video Visit. Patient consented to receive health care services via virtual visit for this encounter Provider Location[facility] Patient Location: Patient Home or Place of Residence I have communicated my name and active licensure. The patient's identity and physical location wereverified at the time of this visit. Either the patient or their legal workforce services representative has been informed of the risks and benefits of -- and alternatives to -- treatment through a remote evaluation andconsents to proceed with the evaluation remotely. Chief Complaint: Pain History of Present Illness: Carol Ann Orellana is a 77 year old year old female being seen at [facility] for a evaluation and/or management of her chronic pain. The patient was last seen virtually on 06/09/2023. She states that since the last visit symptoms have been stable. Her medical history has not changed and she denies any hospital stays or ER visits. Pain Location: lower back -mid back, right leg pain, left shoulder, neck Radiation: arms and legs Character: aching Intensity: 5/10 Numbness/tingling: legs, left hand Burning: occasionally feet Weakness: arms Falls: denies Worsening factors: physical activity and cold weather Relieving factors: rest and medication Patient denies any bowel or bladder dysfunction. The patient is currently prescribed Tramadol ER, [place], lyrica and lidocaine cream from our office.The last dose of [place] was taken today and tramadol a couple days ago. The medications are partially effective. PDMP website checked and validated. [place]AR[place] report reviewed and is consistent with the patients medical history and medication intake. Last Opioid agreement effective date: 10/03/2022 Pain Panel: Reviewed - Inconsistencies noted. Results do not show use of medication prescribed to this patient. -tramadol, she does not take this regularly Urine Panel: Lab Results Component Value Date Cannabinoid Quant, Urine <16 05/08/2023 Benzoylecgonine Quant, Urine <24 05/08/2023 6-Acetylmorphine Quant, Urine <5 05/08/2023 Amphetamine Quant, Urine <5 05/08/2023 Methamphetamine Quant, Urine <8 05/08/2023 Buprenorphine Quant, Urine <20 05/08/2023 Norbuprenorphine Quant, Urine <20 05/08/2023 Methadone Quant, Urine <16 05/08/2023 EDDP Quant, Urine <6 05/08/2023 Tramadol Quant, Urine <25 05/08/2023 Desmethyltramadol Quant, Urine <20 05/08/2023 Fentanyl Quant, Urine <6 05/08/2023 Norfentanyl Quant, Urine <6 05/08/2023 Codeine Quant, Urine <11 05/08/2023 Morphine Quant, Urine <10 05/08/2023 Dihydrocodeine Quant, Urine 405 (H) 05/08/2023 Hydrocodone Quant, Urine 1,461 (H) 05/08/2023 Oxycodone Quant, Urine <10 05/08/2023 Hydromorphone Quant, Urine 1,085 (H) 05/08/2023 Oxymorphone Quant, Urine <5 05/08/2023 Chronic Pain Functional Assessment Tools Pain Disability Index: Pain Disability Index 03/22/2023 06/05/2023 Family/Home Responsibilities 1 0 No Disability Recreation 4 0 No disability Social Activity 5 0 No disability Occupation 0 No disability 0 No disability Sexual Behavior 0 No disability 0 No disability Self Care 1 0 No disability Life Support Activity 0 No disability 0 No disability PDI Score 11 0 Pain Enjoyment of Life and General Activity Scale (0-10): PEG: A Three-Item Scale Assessing Pain Intensity and Interference What number best describes your pain on average in the past week?: 5 (06/21/2023 9:29 AM) What number best describes how, during the past week, pain has interfered with your enjoyment of life?: 4 (06/21/2023 9:29 AM) What number best describes how, during the past week, pain has interfered with your general activity?: 4 (06/21/2023 9:29 AM) REVIEW OF SYSTEMS: GENERAL: No weight loss or fevers RESPIRATORY: Negative for cough CARDIOVASCULAR: Negative for chest pain GI: No nausea, vomiting, or diarrhea. MUSCULOSKELETAL: back pain and muscle pain PAST MEDICAL HISTORY Diagnosis Date Bladder infection Breast cancer (HCC) GERD (gastroesophageal reflux disease) Kidney stones Leg pain Migraines Neurogenic bladder Osteoarthrosis, unspecified whether generalized or localized, other specified sites Osteoporosis Other and unspecified disc disorder of unspecified region Intervertebral disc disorders DIAMOND (stress urinary incontinence, female) Thyroid disease Urethral hypermobility Urge incontinence Urgency of urination PAST SURGICAL HISTORY Procedure Laterality Date ANESTHESIA TOTAL KNEE REPLACEMENT APPENDECTOMY 08/1961 ARTHROTOMY KNEE W/SYNOVIAL BIOPSY ONLY Semilunar cartilage, knee - right BACK SURGERY HX 2011 BLADDER SURGERY HX 2012 BREAST SURGERY HX Right 2018 breast and 3 lymph nodes removed CARPAL TUNNEL Left 12/1979 CATARACT EXTRACTION HX CATARACT EXTRACTION HX 2008 CHOLECYSTECTOMY ELBOW SURGERY HX Left 1994 EXPLORATORY LAPAROTOMY CELIOTOMY W/WO BIOPSY SPX Laparotomy, exp - lysis of adhesions HAND SURGERY HX Right 1989 KNEE SURGERY HX Right removal of meniscus LX EXCISION OF BLADDER TUMOR 1979, 1983 OOPHORECTOMY PARTIAL/TOTAL UNI/BI Oophorectomy TOTAL ABDOMINAL HYSTERECT W/WO RMVL TUBE OVARY Hysterectomy, TOTAL KNEE REPLACEMENT 2009 FAMILY HISTORY Problem Relation Age of Onset Diabetes Mother Stroke Mother Hypertension Mother Heart Father Hypertension Father Heart disease Brother Diabetes Brother Social History Tobacco Use Smoking status: Former Years: 15 Types: Cigarettes Quit date: 1982 Years since quittin.8 Smokeless tobacco: Never Substance Use Topics Alcohol use: No Drug use: No Allergies: Oxycodone-Acetamino* Other: See Comments Cortisone Doxycycline Unknown Iv Dye [Iodinated C* Rash Montelukast Unknown, Rash Oxycodone Unknown Sulfa (Sulfonamide * Latex Rash Current Outpatient Medications Medication Sig albuterol HFA (PROVENTIL HFA, VENTOLIN HFA) 90 mcg/actuation inhaler INHALE 2 PUFFS BY MOUTH and into the lungs FOUR TIMES DAILY NEEDED ALPRAZolam (XANAX) 1 mg tablet Take 1 mg by mouth three times daily. aspirin, enteric coated (ASPIRIN, ENTERIC COATED) 81 mg EC tablet 81 mg. ergocalciferol 50,000 unit capsule (VITAMIN D2, DRISDOL) Take 50,000 Units by mouth once each week. fluticasone (FLOVENT) 220 mcg/actuation inhaler flovent hfa 220 mcg/act aero furosemide (LASIX) 20 mg tablet Take 20 mg by mouth as needed. furosemide (LASIX) 40 mg tablet 40 mg. hydrALAZINE (APRESOLINE) 10 mg tablet TAKE 1 TABLET BY MOUTH FOUR TIMES DAILY NEEDED IF SBP >160 FOR 30 DAYS HYDROcodone-Acetaminophen (NORCO) 10-325 mg per tablet Take 1 tablet by mouth every 6 hours as needed for pain for up to 30 days. iron/vitamin B complex (GERITOL ORAL) Take by mouth. levothyroxine (SYNTHROID) 50 mcg tablet Take 50 mcg by mouth daily before breakfast. lidocaine (LIDODERM) 5 % Apply 1 Patch as directed every 24 hours. lidocaine-methyl lisa-menthol 5-10-3 % ktop lidocaine 5 % oint lidocaine-prilocaine (EMLA) 2.5-2.5 % cream 1-2 g as needed. losartan (COZAAR) 50 mg tablet 50 mg twice daily. meclizine (ANTIVERT) 25 mg tab Take 25 mg by mouth as needed. For dizziness MEDICATION, NON-DATABASE Apply 1 Each to affected area once daily. Cervical Traction Device Metaxalone 400 mg tab Take 0.5-1 tablets by mouth three times daily as needed (pain/). methylphenidate (RITALIN) 20 mg tablet Take 20 mg by mouth twice daily. methylPREDNISolone (MEDROL DOSE-PACK) 4 mg Dose-Pack Take 1 tablet by mouth as directed. As Instructed per package mv, min #36-iron,carbonyl-FA (GERITOL COMPLETE) 16 mg iron- 0.38 mg tab Geritol Complete 16 mg iron- 0.38 mg tablet nebivolol (BYSTOLIC) 10 mg tablet Take 10 mg by mouth once daily. omeprazole (PRILOSEC) 20 mg capsule TAKE 1 CAPSULE BY MOUTH DAILY ON AN EMPTY STOMACH ondansetron (ZOFRAN) 4 mg tablet TAKE 1 TABLET BY MOUTH EVERY 6 HOURS NEEDED FOR NAUSEA OR FOR VOMITING ondansetron orally disintegrating (ZOFRAN ODT) 4 mg disintegrating tablet Take 4 mg by mouth every 6 hours as needed. For Nausea pregabalin (LYRICA) 150 mg capsule Take 1 capsule by mouth three times daily for 30 days. QVAR REDIHALER 80 mcg/actuation inhaler INHALE 2 PUFFS BY MOUTH and into the lungs TWICE DAILY tolterodine ER (DETROL LA) 4 mg 24 hr capsule Take 1 capsule by mouth once daily. traMADol 100 mg 24 hr tablet Take 1 tablet by mouth once daily for 30 days. Do not start before May 10, 2023. No current facility-administered medications for this visit. PHYSICAL EXAMINATION: VIDEO EXAM: (performed via video enabled technology) GENERAL: alert and appropriate, in no distress and well-hydrated, well nourished HEAD: normocephalic, no abnormality or lesion noted RESPIRATORY: breathing non-labored NEUROLOGIC: no obvious deficit ASSESSMENT: Patient is stable. Chronic pain is persistent. Medications are helping Carol Ann Orellana to have an improved quality of life. Patient compliance with Opioid Contract: patient is compliant Encounter Diagnosis ICD-10-CM 1. Other chronic pain G89.29 2. Lumbar radiculopathy M54.16 3. 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 Neck pain M54.2 5. 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 Chronic left shoulder pain M25.512 G89.29 PLAN: The patient understands the goal of our treatment is a reduction in pain and/or an improved level of functioning with activities of daily living. If at any time the patient does not feel the medications are helping them to achieve these goals, the medications may be discontinued. The patient reports a reduction in pain and/or an improved level of functioning with activities of daily living, denies any significant adverse effects, is compliant with the pain management agreement and there are no signs of medication misuse, abuse or diversion; therefore, the medications will be continued. Continue [place] Continue tramadol ER Continue Lyrica Pt is declining procedures at this time Continue Lidocaine ointment Continue Lidocaine patches Continue OTC stool softeners and Colace Continue LB brace Continue care with specialists Continue metaxalone If ineffective she will trial bilateral SNRB at C4-5 She went to therapy from 04/14/23 to 04/29/23 then was d/c to complete exercises at home Encouraged to schedule MRI LS w/wo contrast F/U in 1 month Zoila Valiente APRN.CNP documented in this encounterSumma Health10-13-2023 Instructions* Patient Instructions* Zoila Valiente APRN.CNP - 06/26/2023 9:55 AM EDT Continue [place] Continue tramadol ER Continue Lyrica Pt is declining procedures at this time Continue Lidocaine ointment Continue Lidocaine patches Continue OTC stool softeners and Colace Continue LB brace Continue care with specialists Continue metaxalone If ineffective she will trial bilateral SNRB at C4-5 She went to therapy from 04/14/23 to 04/29/23 then was d/c to complete exercises at home Encouraged MRI LS w/wo contrast F/U in 1 month documented in this encounterSumma Health10-13-2023 Miscellaneous Notes* Telephone Encounter - Mercedes Amor MA - 06/26/2023 6:02 AM EDTSummary: Virtual Visit Pre Check In Items addressed in this encounter: Virtual Visit Pre Check In Able to close encounter. Mercedes Amor MA June 26, 2023 6:02 AM 6:02 AM documented in this encounterSumma Health10-10-2023 Miscellaneous Notes* Telephone Encounter - Mercedes Amor MA - 06/23/2023 2:54 PM EDTSummary: Health Maintenance Review Items addressed in this encounter: Health Maintenance Review Able to close encounter. Mercedes Amor MA June 23, 2023 2:54 PM 2:54 PM documented in this encounterSumma Health09-26-2023 Miscellaneous Notes* Telephone Encounter - Mercedes Amor MA - 06/09/2023 6:20 AM EDTSummary: Virtual Visit Pre Check In Items addressed in this encounter: Virtual Visit Pre Check In Able to close encounter. Merceeds Amor MA June 09, 2023 6:20 AM 6:20 AM documented in this encounterSumma Health08-18-2023 History of Present illness Narrative* Torrey Sanchez LSW - 05/01/2023 12:08 PM EDTSummardwayne: BURSAR Follow Up PRIMARY CARE COORDINATION QUICK NOTE Provider Action/FYI None Patient identified by name and date . Patient has been contacted by [facility] and necessary paperwork forwarded to patient for completion. documented in this encounterSumma Health08-15-2023 NoteHNO ID: [id number] Author: Laura Bravo PT Service: ? Author Type: Physical Therapist Type: Progress Notes Filed: 04/28/2023 10:53 AM Note Text: Episode Visit Count: 3 Therapist That Will Accept/Oversee The Plan Of Care: Laura Bravo Start of Care Date: 04/14/23 Onset Date: 03/24/23 Plan of Care Certification Date: 04/14/23 Next Certification Due Date: 05/26/23 REHABILITATION AND SPORTS THERAPY PHYSICAL THERAPY DISCONTINUANCE OF CARE PLAN OF CARE UPDATE: Assessment: Carol Ann Orellana is discontinued from Physical Therapy services due to Patient/Clinician mutual decision to discontinue current plan of care.. Patient was seen for 3 visits from Start of Care Date: 04/14/23 to 04/28/2023 and treatment included: Therapeutic exercise, Manual therapy, and Self-intermediate management. Goals for Episode of Care: created on 04/14/23 through 05/26/23 Independent in a Home Exercise Program. -- MET Patient will decrease pain rating by 2 points to meet minimal clinical important difference for numeric pain rating scale. -- MET Restore pain free cervical ROM to minimal to no limitation grossly to allow for improved cervical spine mobility with ADLs. -- NOT MET Drive with no aggravation of pain/symptoms. -- NOT MET Maintain proper sitting posture throughout the session to allow for reduced symptoms and improved mechanics. -- PARTIALLY MET Patient will be able to tolerate functional activities/ such as cooking for 1-2 hours without increased symptoms. -- NOT MET Patient Goals: "pain relief, improvement in my neck stability, and improvement in my health overall." -- NOT MET SUBJECTIVE: Pt. reports that she keeps her head still because "it feels like something isn't right in there, like something is out of place.' Pt. did her HEP 2x/day. She did not like the exercises because she felt they were too hard on her head.. Pain: Pain Pain Level: 5 Pain Location: Neck - Left Description: Aching Frequency: Continuous Post Treatment Pain Post Treatment Pain Level: 0 Post Treatment Pain Location: Neck - Left PROMIS Scales Higher is Better 04/14/2023 02/05/2023 Phys Func - Score 39 (moderate dysfunction) 41 (mild dysfunction) Phys Func - Percentile 14 % 18 % Self-Eff Symptom - Score 44 (Average) - Self-Eff Symptom - Percentile 27 % - T-scores: mean of general population = 50. 5 points is clinically meaningfully difference Percentiles provide an indication of how the patient's score ranks in relation to the general population. Higher percentile rankings indicate better function/quality of life. 50th percentile is the average of the general population and indicates half of respondents had a worse score. OBJECTIVE MEASURES WITH LEVEL OF FUNCTION: Cervical Spine ROM Cervical Protrusion AROM: Major limitation Cervical Retraction AROM: Major limitation Cervical Flexion AROM: Moderate limitation Cervical Extension AROM: (refuses to attempt) Cervical Side-Bend Right AROM: Major limitation Cervical Side-Bend Left AROM: Major limitation Cervical Rotation Right AROM: Major limitation Cervical Rotation Left AROM: Major limitation TREATMENT: Therapeutic Exercise: 1: supine towel roll to support lordotic curve, 1 min rest (no change in pain) 2: supine cervical retraction 2x10 (dc unable to tolerate) 3: PROM cervical rotation 2x30 sec each side 4: PROM cervical side flexion each side, 2x30 sec 5: 2x15 B scapular retraction Skilled Intervention: Patient was educated in proper exercise technique and purpose for exercises. Skilled judgment was provided in selection of appropriate interventions. Correct performance of therapeutic exercises was facilitated with verbal, visual, and tactile cuing. Educated patient on rationale for performing exercises in regards to decreasing fatigue , increase ease of ADL, and ROM and function . Patient education as noted. Manual Therapy: Manual Traction: intermittent, 8 min no change in symptoms reported during Skilled Intervention: Manual skills to improve joint mobility, ROM, and decrease pain. Utilized anatomy knowledge of the therapist, and assessment of patient's response to intervention. Self-Longterm Management: 1: *discussed that pt. does not tolerate supine strengthening exercises or stretches, no change reported with manual technqiues Skilled Intervention: Skilled judgment in the selection of proper modification for activity of daily living/home management based on clinical presentation, deficits, and needs. Reviewed patient specific diagnosis in relation to activities of daily living/home management. Activity progression based on professional judgement. Correct performance of home program was facilitated with verbal, visual, and tactile cueing. Billing Therapeutic Exercise Treatment Minutes: 25 Manual TherapyTreatment Minutes: 8 Self-Care/Home Management Treatment Minutes: 7 Total Treatment Time Minutes (ti (more content not included)...[facility]08-08-2023 NoteHNO ID: [id number] Author: Laura Bravo, PT Service: ? Author Type: Physical Therapist Type: Progress Notes Filed: 04/21/2023 11:55 AM Note Text: Episode Visit Count: 2 Therapist That Will Accept/Oversee The Plan Of Care: Laura Bravo Start of Care Date: 04/14/23 Onset Date: 03/24/23 Plan of Care Certification Date: 04/14/23 Next Certification Due Date: 05/26/23 REHABILITATION AND SPORTS THERAPY PHYSICAL THERAPY TREATMENT NOTE ASSESSMENT: Carol Ann Orellana tolerated the session with increased symptoms. She demonstrated difficulty with tolerating seated neck movements but reported improvement with the supine position. She has difficulty with relaxing the B shoulders. The patient will continue to benefit from ongoing skilled physical therapy to progress toward set goals. PLAN FOR NEXT VISIT: assess symptom response to modifying her exercises to supine position as opposed to seated. Consider PNE SUBJECTIVE: Pt. reports that she had to slack off her exercises day and yesterday due to severe pain. She had a lot of company over the week, and turing the left to talk to people caused increased symptoms. Pt. reports that the HEP does not make her symptoms better. She feels that her neck is out of place, and that she needs something to hold her "neck up in place." She thinks that the muscle (self palpating the L SCM) is "inflamed" with turing left. Laying down does feel better than sitting. Pain: Pain Pain Level: 7 Pain Location: Neck - Left Description: Aching Frequency: Continuous Post Treatment Pain Post Treatment Pain Level: No Change Post Treatment Pain Location: Neck - Left OBJECTIVE MEASURES WITH LEVEL OF FUNCTION: TREATMENT: Therapeutic Exercise: 1: supine towel roll to support lordotic curve, 1 min rest (no change in pain) 2: supine towel roll at occiput of skull 1 min (no change in pain) 3: supine towel roll at occiput of skull, cervical retraction 2x10 (no chnage in pain) 4: *supine UT stretch 3x30 sec 5: *supine SCM stretch 3x30 sec 6: *supine cervical retraction without towel roll at occiput 2x10 (pt. given the option to use a towel or no towel) Skilled Intervention: Patient was educated in proper exercise technique and purpose for exercises. Skilled judgment was provided in selection of appropriate interventions. Correct performance of therapeutic exercises was facilitated with verbal, visual, and tactile cuing. Educated patient on rationale for performing exercises in regards to decreasing fatigue , increase ease of ADL, and ROM and function . Patient education as noted. Self-Longterm Management: 1: *cues to avoid scapular elevation throughout visit. 2: *discussed how pain is like an alarm system, and the alarm can still be "going off" after healing following a trauma Skilled Intervention: Skilled judgment in the selection of proper modification for activity of daily living/home management based on clinical presentation, deficits, and needs. Reviewed patient specific diagnosis in relation to activities of daily living/home management. Activity progression based on professional judgement. Moderate verbal cues for maintaining neutral spine alignment. Correct performance of home program was facilitated with verbal, visual, and tactile cueing. Billing Therapeutic Exercise Treatment Minutes: 35 Self-Care/Home Management Treatment Minutes: 5 Total Treatment Time Minutes (timed/untimed): 40 Session Start Time : 1115 Session Stop Time : 1155 Laura Bravo [facility]08-08-2023 History of Present illness Narrative* Laura Bravo, PT - 04/21/2023 11:19 AM EDT Episode Visit Count: 2 Therapist That Will Accept/Oversee The Plan Of Care: Laura Shelly Start of Care Date: 04/14/23 Onset Date: 03/24/23 Plan of Care Certification Date: 04/14/23 Next Certification Due Date: 05/26/23 REHABILITATION AND SPORTS THERAPY PHYSICAL THERAPY TREATMENT NOTE ASSESSMENT: Carol Ann Orellana tolerated the session with increased symptoms. She demonstrated difficulty with tolerating seated neck movements but reported improvement with the supine position. She hasdifficulty with relaxing the B shoulders. The patient will continue to benefit from ongoing skilledphysical therapy to progress toward set goals. PLAN FOR NEXT VISIT: assess symptom response to modifying her exercises to supine position as opposed to seated. Consider PNE SUBJECTIVE: Pt. reports that she had to slack off her exercises thday and yesterday due to severe pain. She had a lot of company over the week, and turing the left to talk to people caused increased symptoms. Pt. reports that the HEP does not make her symptoms better. She feels that her neck is out of place, and that she needs something to hold her "neck up in place." She thinks that the muscle (self palpating the L SCM) is "inflamed" with turing left. Laying down does feel better than sitting. Pain: Pain Pain Level: 7 Pain Location: Neck - Left Description: Aching Frequency: Continuous Post Treatment Pain Post Treatment Pain Level: No Change Post Treatment Pain Location: Neck - Left OBJECTIVE MEASURES WITH LEVEL OF FUNCTION: TREATMENT: Therapeutic Exercise: 1: supine towel roll to support lordotic curve, 1 min rest (no change in pain) 2: supine towel roll at occiput of skull 1 min (no change in pain) 3: supine towel roll at occiput of skull, cervical retraction 2x10 (no chnage in pain) 4: *supine UT stretch 3x30 sec 5: *supine SCM stretch 3x30 sec 6: *supine cervical retraction without towel roll at occiput 2x10 (pt. given the option to use a towel or no towel) Skilled Intervention: Patient was educated in proper exercise technique and purpose for exercises. Skilled judgment was provided in selection of appropriate interventions. Correct performance of therapeutic exercises was facilitated with verbal, visual, and tactile cuing. Educated patient on rationale for performing exercises in regards to decreasing fatigue , increase ease of ADL, and ROM and function . Patient education as noted. Self-Longterm Management: 1: *cues to avoid scapular elevation throughout visit. 2: *discussed how pain is like an alarm system, and the alarm can still be "going off" after healing following a trauma Skilled Intervention: Skilled judgment in the selection of proper modification for activity of daily living/home management based on clinical presentation, deficits, and needs. Reviewed patient specific diagnosis in relation to activities of daily living/home management. Activity progression based on professional judgement. Moderate verbal cues for maintaining neutral spine alignment. Correct performance of home program was facilitated with verbal, visual, and tactile cueing. Billing Therapeutic Exercise Treatment Minutes: 35 Self-Care/Home Management Treatment Minutes: 5 Total Treatment Time Minutes (timed/untimed): 40 Session Start Time : 1115 Session Stop Time : 1155 Laura Bravo PT documented in this encounter[facility]23 NoteHNO ID: [id number] Author: Laura Bravo PT Service: ? 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 She presents with impairments in ADL's, flexibility, independence in exercise, joint mobility, overall function, patient reported outcome measures, posture, range of motion, strength, stress management, symptom management, and tissue tenderness. PROMIS? (Patient-Reported Outcomes Measurement Information System) scores were reviewed and physical function domain and self efficacy domain identified as a rehabilitation concern. Prognosis for therapy is Fair due to: limited tolerance to activity, coping skills, chronic nature of impairments, clinical presentation, multiple co- morbidities . She will benefit from skilled therapy services to meet the goals established for this plan of care as noted below. Goals for Episode of Care: created on 04/14/23 through 05/26/23 Independent in a Home Exercise Program. Patient will decrease pain rating by 2 points to meet minimal clinical important difference for numeric pain rating scale. Restore pain free cervical ROM to minimal to no limitation grossly to allow for improved cervical spine mobility with ADLs.. Drive with no aggravation of pain/symptoms. Maintain proper sitting posture throughout the session to allow for reduced symptoms and improved mechanics. Patient will be able to tolerate functional activities/ such as cooking for 1-2 hours without increased symptoms. Patient Goals: "pain relief, improvement in my neck stability, and improvement in my health overall." Planned Interventions, Frequency, and Duration: Current Frequency: 1x/week Duration: 6 weeks Total Number of Visits Planned: 6 Planned Treatment Interventions: Neuromuscular re-education (38035), Manual therapy (23043), Therapeutic activities (19474), Self-intermediate management (89210), Gait Training (47427), Therapeutic exercise (43982) PLAN FOR NEXT VISIT: assess symptom response to seated cervical retraction, consider very limited activity tolerance this visit. Patient demonstrates good understanding of plan of care and treatment. The above goals and plan of care were discussed and agreed upon by patient/family. SUBJECTIVE: Carol Ann Orellana is a 77 year old female seen today for for left side anterolateral neck pain with turning to the left. Neck pain has gradually increased over the past 3 weeks."My lower back hurts all the time. I need fusions in the low back. My neck is a lot worse than my lower back." Cooking and prolonged standing. She is raising her great-grand child. Patient Goals: "pain relief, improvement in my neck stability, and improvement in my health overall." Functional Limitations: standing, driving, cooking, lifting (turning to the L) Prior Level of Function: Independent without limitations Relevant History Past Relevant Medical Conditions: Headaches, Cancer, Kidney Problems Right or Left Handed: Right Intake Information: Prescription present Previous Treatment: Pain Management (tramadol, norco, lyrica) Falls Interview: Fall with injury in the last year (June 2022 with concussion) Falls Intervention: More thorough falls assessment to be performed Red Flags Vertebral Fracture Red Flags: Female Vertebral Fracture Clinical Reasoning: Proceed with caution due to the above (1-2) risk factors Abdominal Aortic Aneurysm Red Flags: Age >60 Abdominal Aortic Aneurysm Clinical Reasoning: Proceed with caution Cancer Red Flags: History of Cancer, Age >50 or <20 Cancer Clinical Reasoning: Proceed with caution Infection Clinical Reasoning: Proceed with caution Cauda Equina Syndrome Clinical Reasoning: No identified risk factors. Cervical Arterial Dysfunction: Dizziness (with fast movement) Cervical Myelopathy: Age > 45 yo Cervical Myelopathy Diagnostic Rule: Proceed with caution Red Flags - Cervical Cancer Red Flags: History of Cancer, Age >50 or <20 Cancer Clinical Reasoning: Proceed with caution Infection Clinical Reasoning: Proceed with caution Cervical Arterial Dysfunction: Dizziness (with fast movement) Cervical Myelopathy: Age > 45 yo Cervical Myelopathy Diagnostic Rule: Proceed with caution Spine History Symptoms Location at Onset: Neck Symptoms Since Onset: Worsening Pain is Worse Always: Turning, Lying Pain is Better Always: Rest Sle (more content not included)...[facility]08-01-2023 History of Present illness Narrative* Laura Bravo, PT - 04/14/2023 3:41 PM EDT Episode Visit Count: 1 Therapist That Will Accept/Oversee The Plan Of Care: Laura Bravo Start of Care Date: 04/14/23 Onset Date: 03/24/23 Plan of Care Certification Date: 04/14/23 Next Certification Due Date: 05/26/23 Patient Identified by Name and Date of : Yes REHABILITATION AND SPORTS THERAPY PHYSICAL THERAPY EVALUATION PLAN OF CARE: Assessment: Carol Ann Orellana presents with diagnosis of lumbar radiculopathy, neck pain, 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 She presents with impairments in ADL's, flexibility, independence in exercise, joint mobility, overall function, patient reported outcome measures, posture, range of motion, strength, stress management, symptom management, and tissue tenderness. PROMIS (Patient-Reported Outcomes Measurement Information System) scores were reviewed and physical function domain and self efficacy domain identified as a rehabilitation concern. Prognosis for therapy is Fair due to: limited tolerance to activity, coping skills, chronic nature of impairments, clinical presentation, multiple co- morbidities . She will benefit from skilled therapy services to meet the goals established for this plan of care as noted below. Goals for Episode of Care: created on 04/14/23 through 05/26/23 Independent in a Home Exercise Program. Patient will decrease pain rating by 2 points to meet minimal clinical important difference for numeric pain rating scale. Restore pain free cervical ROM to minimal to no limitation grossly to allow for improved cervical spine mobility with ADLs.. Drive with no aggravation of pain/symptoms. Maintain proper sitting posture throughout the session to allow for reduced symptoms and improved mechanics. Patient will be able to tolerate functional activities/ such as cooking for 1-2 hours without increased symptoms. Patient Goals: "pain relief, improvement in my neck stability, and improvement in my health overall." Planned Interventions, Frequency, and Duration: Current Frequency: 1x/week Duration: 6 weeks Total Number of Visits Planned: 6 Planned Treatment Interventions: Neuromuscular re-education (96072), Manual therapy (69036), Therapeutic activities (47361), Self-intermediate management (04562), Gait Training (62421), Therapeutic exercise (51535) PLAN FOR NEXT VISIT: assess symptom response to seated cervical retraction, consider very limited activity tolerance this visit. Patient demonstrates good understanding of plan of care and treatment. The above goals and plan of care were discussed and agreed upon by patient/family. SUBJECTIVE: Carol Ann Orellana is a 77 year old female seen today for for left side anterolateral neckpain with turning to the left. Neck pain has gradually increased over the past 3 weeks."My lower back hurts all the time. I need fusions in the low back. My neck is a lot worse than my lower back." Cooking and prolonged standing. She is raising her great-grand child. Patient Goals: "pain relief, improvement in my neck stability, and improvement in my health overall." Functional Limitations: standing, driving, cooking, lifting (turning to the L) Prior Level of Function: Independent without limitations Relevant History Past Relevant Medical Conditions: Headaches, Cancer, Kidney Problems Right or Left Handed: Right Intake Information: Prescription present Previous Treatment: Pain Management (tramadol, norco, lyrica) Falls Interview: Fall with injury in the last year (June 2022 with concussion) Falls Intervention: More thorough falls assessment to be performed Red Flags Vertebral Fracture Red Flags: Female Vertebral Fracture Clinical Reasoning: Proceed with caution due to the above (1- 2) risk factors Abdominal Aortic Aneurysm Red Flags: Age >60 Abdominal Aortic Aneurysm Clinical Reasoning: Proceed with caution Cancer Red Flags: History of Cancer, Age >50 or <20 Cancer Clinical Reasoning: Proceed with caution Infection Clinical Reasoning: Proceed with caution Cauda Equina Syndrome Clinical Reasoning: No identified risk factors. Cervical Arterial Dysfunction: Dizziness (with fast movement) Cervical Myelopathy: Age > 45 yo Cervical Myelopathy Diagnostic Rule: Proceed with caution Red Flags - Cervical Cancer Red Flags: History of Cancer, Age >50 or <20 Cancer Clinical Reasoning: Proceed with caution Infection Clinical Reasoning: Proceed with caution Cervical Arterial Dysfunction: Dizziness (with fast movement) Cervical Myelopathy: Age > 45 yo Cervical Myelopathy Diagnostic Rule: Proceed with caution Spine History Symptoms Location at Onset: Neck Symptoms Since Onset: Worsening Pain is Worse Always: Turning, Lying Pain is Better Always: Rest Sleeping Position: Supine (with O2, head turned to the right, uses a neck support pillow) Sleep Affected by Pain: Not affected by pain Pain: Pain Pain Level: 7 Pain Location: Neck - Left Description: Aching Frequency: Continuous Post Treatment Pain Post Treatment Pain Level: No Change Post Treatment Pain Location: Neck - Left Post Treatment Symptoms: "pt. states, thank you for not putting me throughout something I couldn't handle" PROMIS Scales Higher is Better 04/14/2023 02/05/2023 Phys Func - Score 39 (moderate dysfunction) 41 (mild dysfunction) Phys Func - Percentile 14 % 18 % Self-Eff Symptom - Score 44 (Average) - Self-Eff Symptom - Percentile 27 % - T-scores: mean of general population = 50. 5 points is clinically meaningfully difference Percentiles provide an indication of how the patient's score ranks in relation to the general population. Higher percentile rankings indicate better function/quality of life. 50th percentile is the average of the general population and indicates half of respondents had a worse score. OBJECTIVE MEASURES WITH LEVEL OF FUNCTION: Posture / Alignment Posture: Forward head, Increased thoracic kyphosis (no difficulty turning to the L to answer questions) Effects of Posture Correction: continue to have left neck pain, but without posterior neck pain. Spine Observations L Cervical Spine Palpation Tenderness: Sternocleidomastoid, Levator scapulae Sensation - Lumbar Sensation: Comments Impaired Sensation: Posterior thigh/calf/dorsum and lateral border of foot (Sciatic nerve), Medial aspect of leg (Femoral nerve), Lateral thigh (Lateral femoral cutaneous nerve), Medial thigh (Obturator nerve) Impaired Medial Aspect of Leg Comments: reports numbness and tingling throughtout the legs Sensation - Cervical Spine Cervical Spine Sensation: Impaired Cervical Spine Sensation - Impaired: (L hand numb for a year per pt. report.) Cervical Spine ROM Cervical ROM : Limitation AROM Cervical Protrusion AROM: Moderate limitation, Produces Cervical Retraction AROM: Major limitation, Produces Cervical Flexion AROM: Moderate limitation, Produces Cervical Extension AROM: Major limitation, Produces Cervical Side-Bend Right AROM: Moderate limitation, Produces Cervical Side-Bend Left AROM: Minimal limitation, Produces Cervical Rotation Right AROM: Moderate limitation, Produces Cervical Rotation Left AROM: Minimal limitation, Produces UE AROM R UE AROM: refuses to demonstrate - reports full ROM L UE AROM: refuses to demonstrate - reports full ROM Education: Education Learning Preferences: Demonstration, Explanation, Performance, Printed Materials Barriers: Emotions Learning/educational needs: Plan of Care, Home exercise program, Posture Education Provided: Yes, see treatment interventions for education provided Education Provided To: Patient Education Mode/Type: Demonstration, Explanation/Discussion, Literature/Printed Materials, Performance Response to Education/Teach Back: Requires Review/Additional Education TREATMENT: PT Treatment Interventions: Therapeutic Exercise, Self-Longterm Management Evaluation Therapeutic Exercise: 1: *seated cervical retraction 3x10 2: *seated UT stretch 3x30 sec each side 3: *seated SCM stretch 3x30 sec each side Skilled Intervention: Patient was educated in proper exercise technique and purpose for exercises. Skilled judgment was provided in selection of appropriate interventions. Provided written instruction for home exercise program to facilitate proper performance and compliance. Correct performance of therapeutic exercises was facilitated with verbal, visual, and tactile cuing. Patient education as noted. Self-Longterm Management: 1: *postural education 2: *discussed location and action of the SCM and levator scapulae 3: *HEP to be completed within a range that is not painful Skilled Intervention: Skilled judgment in the selection of proper modification for activity of daily living/home management based on clinical presentation, deficits, and needs. Reviewed patient specific diagnosis in relation to activities of daily living/home management. Activity progression based on professional judgement. Maximum verbal cues for maintaining neutral spine alignment. Reviewed and educated patient on additions/changes for home program as noted above with an (*). Provided written instruction for home program to facilitate proper performance and compliance. Correct performance of home program was facilitated with verbal, visual, and tactile cueing. Billing * Evaluation Low Complexity: 1 Unit Therapeutic Exercise Treatment Minutes: 15 Self-Care/Home Management Treatment Minutes: 10 Total Treatment Time Minutes (timed/untimed): 45 Session Start Time : 1540 Session Stop Time : 1625 Laura Bravo PT documented in this encounter[facility]07-18-2023 Discharge summary Author Priyank Jaramillo [facility] March 31, 2023 2:59am Note Date/Time March 31, 2023 12:0 0am [facility] Medical Records Department [address] [place] [address] Emergency Department Summary 03/30/23 MR#: [id number] Acct: [id number] Name: CAROL ANN ORELLANA Rep #:[id number] 1 : 1945 77 From: Priyank Jaramillo MD PCP: Dr. Ricardo Ruiz, DO Status:REG E R Location: ED HPI History of Present Illness Chief Complaint: Nausea/Vomiting Informant: patient and spouse/S.O. Narrative Narrative: Patient states for the past 2 days she has been having worsening headache posterior neck pain and now nausea and vomiting, her blood pressure was over 200at home so she took one of her hydralazine that is meant to be taken as needed for elevated blood pressure. She has been compliant with her other blood pressure medications which have not changed lately, she has not forgotten to take a dose on accident. No recent injuries or illness. She has been having headaches and neck pain since June last year similar to this but worse in thepast couple days to a week gradually, now with "severe pressure in my ears". She states she has chronic painful numbness in her lower extremities due to peripheral neuropathy, and it is worse today because of the vomiting, she has not been able to take her Lyrica. [facility] Medical History Arthritis Asthma Back problem Bilateral cataracts Breast cancer Bronchiectasis Carpal tunnel syndrome of left wrist Chronic pain COPD (chronic obstructive pulmonary disease) Difficulty balancing DVT (deep venous thrombosis) Former smoker Generalized weakness GERD (gastroesophageal reflux disease) High cholesterol history of blood clot Hypertension IBS (irritable bowel syndrome) Infection of kidney Kidney stones Knee pain Limb weakness Limb weakness Lymphedema Mass of right chest wall Migraines CISCO (obstructive sleep apnea) Osteoporosis Pneumonia Pulmonary embolism Pulmonary fibrosis Severe sepsis Shortness of breath Shoulder pain Spinal stenosis Thyroid disease Tumor of bladder neck Urinary retention UTI (urinary tract infection) Vitamin D deficiency Home Medications levothyroxine 50 mcg tablet 50 mcg PO DAILY 12/19/13 [History Last Taken 06/08/17] alprazolam 1 mg tablet 1 mg PO TID PRN PRN Anxiety 02/16/17 [History Last Taken 03/22/21 23:00] lidocaine 5 % topical ointment 35 g topical TID PRN Pain 03/11/18 [History Last Taken Unknown] cholecalciferol (vitamin D3) 25 mcg (1,000 unit) capsule 1,000 unit PO DAILY Check with primary doctor 04/12/19 [History Last Taken Unknown] fluticasone propionate 44 mcg/actuation HFA aerosol inhaler (Flovent HFA) 1 inh inhalation BID Check with primary doctor 04/12/19 [History Last Taken Unknown] hydrocodone 10 mg-acetaminophen 325 mg tablet 1 tab PO .QID PRN Pain 03/24/21 [History Last Taken 03/30/23] ondansetron HCl 4 mg tablet (Zofran) 4 mg PO Q8H PRN nausea and vomiting #20 tabs 03/25/21 [Rx Last Taken Unknown] methylphenidate HCl 20 mg tablet 20 mg PO BID 02/14/22 [History Last Taken Unknown] omeprazole 20 mg capsule,delayed release 20 mg PO DAILY Check with primary doctor 02/14/22 [History Last Taken Unknown] pregabalin 150 mg capsule 150 mg PO TID Pain 02/14/22 [History Last Taken Unknown] tolterodine 4 mg capsule,extended release 24 hr 4 mg PO DAILY Check with primarydoctor 02/14/22 [History Last Taken Unknown] albuterol sulfate 90 mcg/actuation aerosol inhaler 2 inh inhalation PRN PRN Shortness Of Breath 02/17/22 [History Last Taken Unknown] beclomethasone dipropionate 80 mcg/actuation HFA breath activated aerosol 2 inh inhalation BID Check with primary doctor 02/17/22 [History Last Taken Unknown] ondansetron 4 mg disintegrating tablet 4 mg PO Q6H PRN nausea and vomiting #10 tabs 06/17/22 [Rx Last Taken Unknown] cephalexin 500 mg capsule 500 mg PO Q6 #28 CAPSULES 08/28/22 [Rx Last Taken Unknown] lisinopril 5 mg tablet 5 mg PO DAILY #30 tabs 08/28/22 [Rx Last Taken Unknown] ondansetron 4 mg disintegrating tablet 4 mg PO TID PRN nausea and vomiting #21 tabs 02/11/23 [Rx Last Taken Unknown] nebivolol 5 mg tablet (Bystolic) 10 mg PO QHS Check with primary doctor 02/25/23[History Last Taken Unknown] losartan 25 mg tablet 50 mg PO BID 03/31/23 [History Last Taken Unknown] metoclopramide HCl 10 mg tablet 10 mg PO Q6H PRN nausea and vomiting #20 tabs 03/31/23 [Rx Last Taken Unknown] nebivolol 10 mg tablet 20 mg PO .QAM 03/31/23 [History Last Taken Unknown] Allergy/AdvReac Type Severity Reaction Status Date / Time latex Allergy Mild Rash Verified 03/30/23 23:34 doxycycline Allergy Unknown weakness Verified 03/30/23 23:34 montelukast Allergy Unknown Rash Verified 03/30/23 23:34 Iodinated Contrast Media Allergy Other Verified 03/30/23 23:34 [iodine contrast] Sulfa (Sulfonamide Allergy Hives Verified 03/30/23 23:34 Antibiotics) oxycodone [From Percocet] AdvReac Other Verified 03/30/23 23:34 Family History Mother Cancer gastric cancer at 93 Father Emphysema lung Heart disease Brother Heart disease Diabetes Surgical History (Updated 02/25/23 @ 15:[address] Katheryn Walton MD) H/O elbow surgery H/O knee surgery H/O lateral meniscus repair of right knee H/O right mastectomy History of appendectomy History of bladder suspension procedure History of blepharoplasty History of cardiac catheterization History of carpal tunnel surgery of left wrist History of cataract removal with insertion of prosthetic lens History of cholecystectomy History of excision of mass History of hand surgery History of hysterectomy with bilateral oophorectomy History of lumpectomy of right breast History of spinal fusion Social History household members: spouse and other details: raising her great grandson current occupational status: retired Smoking Status: Never smoker Tobacco: How many years used: 15 how long ago did patient quit smoking: smoked less than a pack per week for 15 years alcohol intake: never substance use type: does not use additional social history: Does Take Aspirin Does Take Ibuprofen ROS ROS ED Constitutional Constitutional ED: Denies chills or fever(s) Eyes Eyes: Denies change in vision or diplopia ENT ENT ED: Reports ear pain bilateral; Denies rhinorrhea or sore throat Cardiovascular Cardiovascular: Denies chest pain or palpitations Respiratory/Chest Respiratory/Chest: Denies cough or dyspnea Gastrointestinal Gastrointestinal: Reports nausea and vomiting; Denies abdominal pain or diarrhea Genitourinary Genitourinary ED: Denies dysuria or hematuria Musculoskeletal Musculoskeletal: Reports neck pain; Denies back pain Integumentary Denies abscess or rash Neurologic Neurologic: Reports headache(s) and paresthesias RLE (thigh) and LLE (thigh); Denies weakness Psychiatric Psychiatric: Reports anxiety; Denies suicidal thoughts EXAM Physical Exam Const Vital Signs: 03/30/23 23:38 Temperature 97.6 F L Temperature Source Temporal Pulse Rate 67 Respiratory Rate 18 Blood Pressure 165/75 H Blood Pressure Mean 105 Pulse Ox 98 Oxygen Delivery Method Room Air Positive well nourished and well developed General Appearance ED: well developed and NAD HEENT Reports moist mucous membranes HEENT Narrative: TMs normal except for effusion without purulence or perforation on the right, patient states she has a history of that. EAC normal bilaterally. Mastoid process without erythema, swelling, tenderness bilaterally. normocephalic and atraumatic Eyes PERRL and EOMs intact bilaterally Neck full ROM, no lymphadenopathy and supple Neck Narrative: Mild tenderness both sternocleidomastoids. No carotid bruits. Diffusely tenderposterior neck paraspinal musculature throughout. General: tenderness Chest Wall inspection of chest normal Resp normal respiratory effort and clear to auscultation bilaterally Cardio regular rate, regular rhythm and no murmurs GI non-tender and non-distended Auscultation: normoactive bowel sounds Palpation: soft Back/Spine no CVA tenderness General Back: other FROM Extremity normal to inspection General Extremety ED: Negative for edema, pulses abnormal or tenderness General Extremity: Negative for edema or pulses abnormal Neuro oriented x3, CN's II-XII intact bilaterally and no sensory deficits noted Neuro Narrative: No focal motor deficits. Sensorium / Orientation: awake and alert Motor Exam: general weakness Psych Psych Narrative: Anxious. Moaning. Skin no rashes or lesions noted and no wounds MDM MDM MDM Narrative Medical decision making narrative: Upon evaluation the patient's blood pressure is 165/75 so no emergent treatment for this is indicated but will be monitored closely. She has no carotid bruits,this is chronic pain in her neck, and it is bilateral. She has no neurologic deficits. For these reasons and her age, I do not think that the benefits of performing CT angiography of her neck vessels to rule out dissection outweigh the risks. Patient was given IV fluids and Zofran while we obtain blood test and the CT. Ireviewed the the images and the report which I agree with, basically negative for any acute, old infarct noted. Upon reevaluation the patient states she feels no different. She then offers more information and then she offered me before; she states she is in pain management for neck and prescribed [place] and is ready to start physical therapy for this, and also states that she has a history of migraines and part of this feels like one. She states that she feelslike all of this is due to her chronic neck pain that is worse in the past 2 days. She states the neck pain is not new. She has some numbness in her lower extremities proximally, I suspect this may be due to anxiety, as I discussed with her. I asked she and her if she has been confused and they both state no not acutely any different than usual. Her sodium is 124, she does not appear to necessarily be symptomatic from that. She states to me "this is because I have to keep my bowels loose with medications." She also later adds that she took some Lasix recently which in my opinion would be more likely to cause her sodium to go down. She additionally was treated with morphine and then Reglan for symptoms and reevaluated. She is doing better. She states that she had some urinary hesitancy recently, and states she was not quite sure if she was going or not. She has a history of frequent urinary tract infections, and as a result she is on prophylactic daily low-dose cephalexin. She and her are asking if I will check a urine, she was able to do this and walked to the bathroom with assistance in order to provided. It does show leukocyte esterase but she alwaysdoes, small amount of pyuria and small amount of bacteria. Unclear if this is true infection or not, we discussed options here and she is comfortable waiting for culture to come back. She is feeling better enough to be discharged home wewill give her prescription for Reglan to use as needed and follow-up with her pain management doctor in the meantime she and are comfortable with thatplan and answered all questions at the bedside. Blood pressure on recheck prior to discharge 141/64. Lab Data Attestation: I reviewed the patient's lab results. Labs: Laboratory Results - last 24 hr 03/30/23 03/31/23 23:54 02:22 WBC 6.7 RBC 4.02 L Hgb 12.0 Hct 34.0 L MCV 84.6 MCH 29.9 MCHC 35.3 RDW Std Deviation 37.0 RDW Coeff of Mahi 12.1 Plt Count 210 MPV 9.6 Immature Gran % (Auto) 0.600 Neut % (Auto) 76.7 H Lymph % (Auto) 16.2 L Hitchcock % (Auto) 4.7 Eos % (Auto) 0.9 Baso % (Auto) 0.9 Absolute Neuts (auto) 5.1 Absolute Lymphs (auto) 1.08 Nucleated RBC % 0 Sodium 124 L Potassium 3.9 Chloride 94 L Carbon Dioxide 21.0 Anion Gap 9 BUN 10 Creatinine 0.73 Estim Creat Clear Calc 32.77 Est GFR (MDRD) Af Amer 99 Est GFR (MDRD) Non-Af 82 BUN/Creatinine Ratio 13.7 Glucose 129 H Calcium 9.2 Urine Color Yellow Urine Clarity Clear Urine pH 6.5 Ur Specific [place] 1.005 Urine Protein Negative Urine Glucose (UA) Normal Urine Ketones 15 H Urine Occult Blood Negative Urine Nitrite Negative Urine Bilirubin Negative Urine Urobilinogen Normal Ur Leukocyte Esterase 500 H Urine RBC 0 SEEN Urine WBC 10-25 SEEN Ur Squamous Epith Cells 0-5 SEEN Urine Bacteria 1+ Urine Mucus 0 SEEN Radiography Diagnostic Testing: Clinical Impression(s) from Imaging Studies Brain CT 03/30/23 23:55 IMPRESSION: No acute abnormality. 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 Electronically Signed: America Kathleen MD at 0:34 EDT , Discharge Plan Triage Chief Complaint: Nausea/Vomiting ED Provider: Priyank Jaramillo Dx/Rx/DC Orders Clinical Impression: Accelerated hypertension, Headache, Hyponatremia, Chronic neck pain, Peripheralneuropathy Instructions: ED Chronic Pain, ED Hyponatremia Prescriptions: New metoclopramide HCl [metoclopramide HCl] 10 mg tablet 10 mg PO Q6H PRN (Reason: nausea and vomiting) Qty: 20 0RF No Action Flovent HFA 44 mcg/actuation HFA aerosol inhaler 1 inh INHALATION BID cholecalciferol (vitamin D3) 1,000 unit capsule 1,000 unit capsule 1,000 unit PO DAILY methylphenidate HCl 20 mg tablet 20 mg PO BID omeprazole 20 mg capsule,delayed release(DR/EC) 20 mg PO DAILY tolterodine 4 mg capsule,extended release 24hr 4 mg PO DAILY Hold Instructions: Resume on 05/24/22. nebivolol [Bystolic] 5 mg tablet 10 mg PO QHS albuterol sulfate 90 mcg/actuation HFA aerosol inhaler 2 inh inhalation PRN PRN (Reason: Shortness Of Breath) Patient Comments: INHALE 2 PUFFS BY MOUTH and into the lungs FOUR TIMES DAILY NEEDED beclomethasone dipropionate 80 mcg/actuation HFA aerosol breath activated 2 inh inhalation BID Patient Comments: INHALE 2 PUFFS BY MOUTH and into the lungs TWICE DAILY levothyroxine 50 MCG tablet 50 mcg PO DAILY Patient Comments: Thyroid alprazolam 1 MG tablet 1 mg PO TID PRN PRN (Reason: Anxiety) lidocaine 35 GM ointment 35 g topical TID PRN (Reason: Pain) Patient Comments: 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 Patient Comments: TAKE 1 TABLET BY MOUTH THREE TIMES DAILY NEEDED For PAIN ondansetron HCl [Zofran] 4 mg tablet 4 mg PO Q8H PRN (Reason: nausea and vomiting) Qty: 20 0RF Hold Instructions: Duplicate Order pregabalin 150 mg capsule 150 mg PO TID Patient Comments: TAKE 1 TABLET BY MOUTH THREE TIMES DAILY ondansetron 4 mg tablet,disintegrating 4 mg PO Q6H PRN (Reason: nausea and vomiting) Qty: 10 0RF cephalexin [cephalexin] 500 mg capsule 500 mg PO Q6 Qty: 28 0RF lisinopril 5 mg tablet 5 mg PO DAILY Qty: 30 0RF Hold Instructions: MD Ordered ondansetron 4 mg tablet,disintegrating 4 mg PO TID PRN (Reason: nausea and vomiting) Qty: 21 0RF losartan 25 mg tablet 50 mg PO BID Patient Comments: TAKE 1 TABLET BY MOUTH EVERY DAY nebivolol 10 mg tablet 20 mg PO .QAM Patient Comments: TAKE 2 TABLETS BY MOUTH IN THE MORNING AND TAKE 1 TABLET IN THE EVENING Primary Care Provider: Ricardo Ruiz Referrals: Ricardo Ruiz DO [Primary Care Provider] - As soon as possible (for recheck of your sodium/chemistries) Activity Restrictions/Additional Instructions: Until you follow-up, avoid taking furosemide. Follow-up with your pain management doctor soon as possible. Disposition Disposition: Home, Self Care What to do if you have Problems For any increased pain, shortness of breath, bleeding, nausea or vomiting, chestpain, or any unexpected problems, contact your Primary Care Provider. Call [facility] ([phone]) or report to the closest Emergency Room. Call 911 if necessary. 03/31/23 0259 <Electronically signed by Priyank Jaramillo MD> Cosigner Signature (if applicable): CC: Dr. Ricardo Ruiz DO ~ Signed [facility] Work Phone: [phone] 924-948507-12-2023 History of Present illness Narrative* Zoila Valiente APRN.NUCLEAR FUEL PROCESSING TECHNICIAN - 03/25/2023 2:00 PM EDT This video visit was performed via RealPage video visit. Patient consented to receive health care services via virtual visit for this encounter Provider Location: Non-[facility] Patient Location: Patient Home or Place of Residence I have communicated my name and active licensure. The patient's identity and physical location wereverified at the time of this visit. Either the patient or their legal workforce services representative has been informed of the risks and benefits of -- and alternatives to -- treatment through a remote evaluation andconsents to proceed with the evaluation remotely. Chief Complaint: Pain History of Present Illness: Carol Ann Orellana is a 77 year old year old female being seen at [facility] for a evaluation and/or management of her chronic pain. The patient was last seen virtually on 02/27/2023. She states that since the last visit symptoms have been persistent. Her medical history has not changed and she denies any hospital stays or ER visits. Pain Location: lower back -mid back, right leg pain, left shoulder, neck Radiation: arms and legs Character: aching Intensity: 6/10 Numbness/tingling: legs, left hand Burning: occasionally feet Weakness: arms Falls: denies Worsening factors: physical activity and cold weather Relieving factors: rest and medication Patient denies any bowel or bladder dysfunction. The patient is currently prescribed [place], lyrica and lidocaine cream from our office. The last dose of [place] were taken today. The medications are partially effective. PDMP website checked and validated. OARRS report reviewed and is consistent with the patients medical history and medication intake. Last Opioid agreement effective date: 10/03/2022 Pain Panel: Reviewed - No inconsistencies noted. Urine Panel: Lab Results Component Value Date Cannabinoid Quant, Urine <16 11/07/2022 Benzoylecgonine Quant, Urine <24 11/07/2022 6-Acetylmorphine Quant, Urine <5 11/07/2022 Amphetamine Quant, Urine <5 11/07/2022 Methamphetamine Quant, Urine <8 11/07/2022 Buprenorphine Quant, Urine <20 11/07/2022 Norbuprenorphine Quant, Urine <20 11/07/2022 Methadone Quant, Urine <16 11/07/2022 EDDP Quant, Urine <6 11/07/2022 Tramadol Quant, Urine <25 11/07/2022 Desmethyltramadol Quant, Urine <20 11/07/2022 Fentanyl Quant, Urine <6 11/07/2022 Norfentanyl Quant, Urine <6 11/07/2022 Codeine Quant, Urine <11 11/07/2022 Morphine Quant, Urine <10 11/07/2022 Dihydrocodeine Quant, Urine 577 (H) 11/07/2022 Hydrocodone Quant, Urine 3,002 (H) 11/07/2022 Oxycodone Quant, Urine <10 11/07/2022 Hydromorphone Quant, Urine 434 (H) 11/07/2022 Oxymorphone Quant, Urine <5 11/07/2022 Chronic Pain Functional Assessment Tools Pain Disability Index: Pain Disability Index 02/20/2023 03/22/2023 Family/Home Responsibilities 0 No Disability 1 Recreation 3 4 Social Activity 4 5 Occupation 0 No disability 0 No disability Sexual Behavior 0 No disability 0 No disability Self Care 0 No disability 1 Life Support Activity 0 No disability 0 No disability PDI Score 7 11 Pain Enjoyment of Life and General Activity Scale (0-10): PEG: A Three-Item Scale Assessing Pain Intensity and Interference What number best describes your pain on average in the past week?: 5 (03/22/2023 8:22 AM) What number best describes how, during the past week, pain has interfered with your enjoyment of life?: 4 (03/22/2023 8:22 AM) What number best describes how, during the past week, pain has interfered with your general activity?: 3 (03/22/2023 8:22 AM) REVIEW OF SYSTEMS: GENERAL: No weight loss or fevers RESPIRATORY: Negative for cough CARDIOVASCULAR: Negative for chest pain GI: No nausea, vomiting, or diarrhea. MUSCULOSKELETAL: back pain and muscle pain PAST MEDICAL HISTORY Diagnosis Date Bladder infection Breast cancer (HCC) GERD (gastroesophageal reflux disease) Kidney stones Leg pain Migraines Neurogenic bladder Osteoarthrosis, unspecified whether generalized or localized, other specified sites Osteoporosis Other and unspecified disc disorder of unspecified region Intervertebral disc disorders DIAMOND (stress urinary incontinence, female) Thyroid disease Urethral hypermobility Urge incontinence Urgency of urination PAST SURGICAL HISTORY Procedure Laterality Date ANESTHESIA TOTAL KNEE REPLACEMENT APPENDECTOMY 08/1961 ARTHROTOMY KNEE W/SYNOVIAL BIOPSY ONLY Semilunar cartilage, knee - right BACK SURGERY HX 2011 BLADDER SURGERY HX 2012 BREAST SURGERY HX Right 2018 breast and 3 lymph nodes removed CARPAL TUNNEL Left 12/1979 CATARACT EXTRACTION HX CATARACT EXTRACTION HX 2009 CHOLECYSTECTOMY ELBOW SURGERY HX Left 1994 EXPLORATORY LAPAROTOMY CELIOTOMY W/WO BIOPSY SPX Laparotomy, exp - lysis of adhesions HAND SURGERY HX Right 1989 KNEE SURGERY HX Right removal of meniscus LX EXCISION OF BLADDER TUMOR 1979, 1983 OOPHORECTOMY PARTIAL/TOTAL UNI/BI Oophorectomy TOTAL ABDOMINAL HYSTERECT W/WO RMVL TUBE OVARY Hysterectomy, TOTAL KNEE REPLACEMENT 2009 FAMILY HISTORY Problem Relation Age of Onset Diabetes Mother Stroke Mother Hypertension Mother Heart Father Hypertension Father Heart disease Brother Diabetes Brother Social History Tobacco Use Smoking status: Former Years: 15.00 Types: Cigarettes Quit date: 1982 Years since quittin.5 Smokeless tobacco: Never Substance Use Topics Alcohol use: No Drug use: No Allergies: Oxycodone-Acetamino* Other: See Comments Cortisone Doxycycline Unknown Iv Dye [Iodinated C* Rash Montelukast Unknown, Rash Oxycodone Unknown Sulfa (Sulfonamide * Latex Rash Current Outpatient Medications Medication Sig HYDROcodone-Acetaminophen (NORCO) 10-325 mg per tablet Take 1 tablet by mouth every 6 hours as needed for pain for up to 30 days. pregabalin (LYRICA) 150 mg capsule Take 1 capsule by mouth three times daily for 30 days. Do not start before February 09, 2023. Metaxalone 400 mg tab Take 0.5-1 tablets by mouth three times daily as needed (pain/). losartan (COZAAR) 50 mg tablet 50 mg twice daily. hydrALAZINE (APRESOLINE) 10 mg tablet TAKE 1 TABLET BY MOUTH FOUR TIMES DAILY NEEDED IF SBP >160 FOR 30 DAYS nebivolol (BYSTOLIC) 10 mg tablet Take 10 mg by mouth once daily. ondansetron orally disintegrating (ZOFRAN ODT) 4 mg disintegrating tablet Take 4 mg by mouth every 6 hours as needed. For Nausea lidocaine (LIDODERM) 5 % Apply 1 Patch as directed every 24 hours. ondansetron (ZOFRAN) 4 mg tablet TAKE 1 TABLET BY MOUTH EVERY 6 HOURS NEEDED FOR NAUSEA OR FOR VOMITING omeprazole (PRILOSEC) 20 mg capsule TAKE 1 CAPSULE BY MOUTH DAILY ON AN EMPTY STOMACH QVAR REDIHALER 80 mcg/actuation inhaler INHALE 2 PUFFS BY MOUTH and into the lungs TWICE DAILY aspirin, enteric coated (ASPIRIN, ENTERIC COATED) 81 mg EC tablet 81 mg. albuterol HFA (PROVENTIL HFA, VENTOLIN HFA) 90 mcg/actuation inhaler INHALE 2 PUFFS BY MOUTH and into the lungs FOUR TIMES DAILY NEEDED furosemide (LASIX) 40 mg tablet 40 mg. ALPRAZolam (XANAX) 1 mg tablet Take 1 mg by mouth three times daily. mv, min #36-iron,carbonyl-FA (GERITOL COMPLETE) 16 mg iron- 0.38 mg tab Geritol Complete 16 mg iron- 0.38 mg tablet lidocaine-prilocaine (EMLA) 2.5-2.5 % cream 1-2 g as needed. furosemide (LASIX) 20 mg tablet Take 20 mg by mouth as needed. iron/vitamin B complex (GERITOL ORAL) Take by mouth. tolterodine ER (DETROL LA) 4 mg 24 hr capsule Take 1 capsule by mouth once daily. lidocaine-methyl lisa-menthol 5-10-3 % ktop lidocaine 5 % oint fluticasone (FLOVENT) 220 mcg/actuation inhaler flovent hfa 220 mcg/act aero methylphenidate (RITALIN) 20 mg tablet Take 20 mg by mouth twice daily. levothyroxine (SYNTHROID) 50 mcg tablet Take 50 mcg by mouth daily before breakfast. ergocalciferol 50,000 unit capsule (VITAMIN D2, DRISDOL) Take 50,000 Units by mouth once each week. meclizine (ANTIVERT) 25 mg tab Take 25 mg by mouth as needed. For dizziness No current facility-administered medications for this visit. PHYSICAL EXAMINATION: VIDEO EXAM: (performed via video enabled technology) GENERAL: alert and appropriate, in no distress and well-hydrated, well nourished HEAD: normocephalic, no abnormality or lesion noted RESPIRATORY: breathing non-labored NEUROLOGIC: no obvious deficit ASSESSMENT: Patient is stable. Chronic pain is persistent. Medications are helping Carol Ann Orellana to have an improved quality of life. Patient compliance with Opioid Contract: patient is compliant Encounter Diagnosis ICD-10-CM 1. Other chronic pain G89.29 2. 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 Neck pain M54.2 5. 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 If at any time the patient does not feel the medications are helping them to achieve these goals, the medications may be discontinued. The patient reports a reduction in pain and/or an improved level of functioning with activities of daily living, denies any significant adverse effects, is compliant with the pain management agreement and there are no signs of medication misuse, abuse or diversion; therefore, the medications will be continued. Continue [place] Trial tramadol ER Continue Lyrica Pt is declining procedures at this time Continue Lidocaine ointment Continue Lidocaine patches Continue OTC stool softeners and Colace Continue LB brace Continue care with specialists Continue metaxalone Encouraged to call to schedule physical therapy with dry needling If ineffective she will trial bilateral SNRB at C4-5 F/U in 1 month Zoila Valiente APRN.CNP documented [facility]07-12-[facility]23 Instructions* Patient Instructions* Zoila Valiente APRN.CNP - 03/25/2023 8:03 AM EDT Continue [place] Trial tramadol ER Continue Lyrica Pt is declining procedures at this time Continue Lidocaine ointment Continue Lidocaine patches Continue OTC stool softeners and Colace Continue LB brace Continue care with specialists Continue metaxalone Encouraged to call to schedule physical therapy with dry needling If ineffective she will trial bilateral SNRB at C4-5 F/U in 1 month documented in this encounterSumma Health06-20-2023 Miscellaneous Notes* Telephone Encounter - Mercedes Amor MA - 03/03/2023 8:27 AM EDTSummary: LVM to Cancel other appt LVM to cancel other injection appt with other Dr since she has appt with [facility]. Mercedes Amor MA March 03, 2023 8:28 AM documented in this encounterSumma Health06-16-2023 History of Present illness Narrative* Zoila Valiente APRN.NUCLEAR FUEL PROCESSING TECHNICIAN - 02/27/2023 1:45 PM EDT This video visit was performed via RealPage video visit. Patient consented to receive health care services via virtual visit for this encounter Provider [facility] Patient Location: Patient Home or Place of Residence I have communicated my name and active licensure. The patient's identity and physical location wereverified at the time of this visit. Either the patient or their legal workforce services representative has been informed of the risks and benefits of -- and alternatives to -- treatment through a remote evaluation andconsents to proceed with the evaluation remotely. Chief Complaint: Pain History of Present Illness: Carol Ann Orellana is a 77 year old year old female being seen at [facility] for a evaluation and/or management of her chronic pain. The patient was last seen virtually on 01/27/2023. She states that since the last visit symptoms have been stable. She has been seen inthe Emergency Room for her HTN. She saw spine surgery and they want to do a bilateral C4-5 SNRB. Her medical history has not changed and she denies any hospital stays or ER visits. Pain Location: lower back -mid back, right leg pain, left shoulder, neck Radiation: arms and legs Character: aching Intensity: 3-4/10 Numbness/tingling: legs, left hand Burning: occasionally feet Weakness: arms Falls: denies Worsening factors: physical activity and cold weather Relieving factors: rest and medication Patient denies any bowel or bladder dysfunction. The patient is currently prescribed [place], lyrica and lidocaine cream from our office. The last dose of [place] were taken today. The medications are partially effective. PDMP website checked and validated. OARRS report reviewed and is consistent with the patients medical history and medication intake. Last Opioid agreement effective date: 10/03/2022 Pain Panel: Reviewed - No inconsistencies noted. Urine Panel: Lab Results Component Value Date Cannabinoid Quant, Urine <16 11/07/2022 Benzoylecgonine Quant, Urine <24 11/07/2022 6-Acetylmorphine Quant, Urine <5 11/07/2022 Amphetamine Quant, Urine <5 11/07/2022 Methamphetamine Quant, Urine <8 11/07/2022 Buprenorphine Quant, Urine <20 11/07/2022 Norbuprenorphine Quant, Urine <20 11/07/2022 Methadone Quant, Urine <16 11/07/2022 EDDP Quant, Urine <6 11/07/2022 Tramadol Quant, Urine <25 11/07/2022 Desmethyltramadol Quant, Urine <20 11/07/2022 Fentanyl Quant, Urine <6 11/07/2022 Norfentanyl Quant, Urine <6 11/07/2022 Codeine Quant, Urine <11 11/07/2022 Morphine Quant, Urine <10 11/07/2022 Dihydrocodeine Quant, Urine 577 (H) 11/07/2022 Hydrocodone Quant, Urine 3,002 (H) 11/07/2022 Oxycodone Quant, Urine <10 11/07/2022 Hydromorphone Quant, Urine 434 (H) 11/07/2022 Oxymorphone Quant, Urine <5 11/07/2022 Chronic Pain Functional Assessment Tools Pain Disability Index: Pain Disability Index 12/22/2022 02/20/2023 Family/Home Responsibilities 0 No Disability 0 No Disability Recreation 5 3 Social Activity 5 4 Occupation 0 No disability 0 No disability Sexual Behavior 0 No disability 0 No disability Self Care 0 No disability 0 No disability Life Support Activity 0 No disability 0 No disability PDI Score 10 7 Pain Enjoyment of Life and General Activity Scale (0-10): PEG: A Three-Item Scale Assessing Pain Intensity and Interference What number best describes your pain on average in the past week?: 5 (02/20/2023 10:44 AM) What number best describes how, during the past week, pain has interfered with your enjoyment of life?: 4 (02/20/2023 10:44 AM) What number best describes how, during the past week, pain has interfered with your general activity?: 4 (02/20/2023 10:44 AM) REVIEW OF SYSTEMS: GENERAL: No weight loss or fevers RESPIRATORY: Negative for cough CARDIOVASCULAR: Negative for chest pain GI: No nausea, vomiting, or diarrhea. MUSCULOSKELETAL: back pain and muscle pain PAST MEDICAL HISTORY Diagnosis Date Bladder infection Breast cancer (HCC) GERD (gastroesophageal reflux disease) Kidney stones Leg pain Migraines Neurogenic bladder Osteoarthrosis, unspecified whether generalized or localized, other specified sites Osteoporosis Other and unspecified disc disorder of unspecified region Intervertebral disc disorders DIAMOND (stress urinary incontinence, female) Thyroid disease Urethral hypermobility Urge incontinence Urgency of urination PAST SURGICAL HISTORY Procedure Laterality Date ANESTHESIA TOTAL KNEE REPLACEMENT APPENDECTOMY 08/1961 ARTHROTOMY KNEE W/SYNOVIAL BIOPSY ONLY Semilunar cartilage, knee - right BACK SURGERY HX 2010 BLADDER SURGERY HX 2012 BREAST SURGERY HX Right 2018 breast and 3 lymph nodes removed CARPAL TUNNEL Left 12/1979 CATARACT EXTRACTION HX CATARACT EXTRACTION HX 2009 CHOLECYSTECTOMY ELBOW SURGERY HX Left 1994 EXPLORATORY LAPAROTOMY CELIOTOMY W/WO BIOPSY SPX Laparotomy, exp - lysis of adhesions HAND SURGERY HX Right 1989 KNEE SURGERY HX Right removal of meniscus LX EXCISION OF BLADDER TUMOR 1979, 1983 OOPHORECTOMY PARTIAL/TOTAL UNI/BI Oophorectomy TOTAL ABDOMINAL HYSTERECT W/WO RMVL TUBE OVARY Hysterectomy, TOTAL KNEE REPLACEMENT 2009 FAMILY HISTORY Problem Relation Age of Onset Diabetes Mother Stroke Mother Hypertension Mother Heart Father Hypertension Father Heart disease Brother Diabetes Brother Social History Tobacco Use Smoking status: Former Years: 15.00 Types: Cigarettes Quit date: 1982 Years since quittin.4 Smokeless tobacco: Never Substance Use Topics Alcohol use: No Drug use: No Allergies: Oxycodone-Acetamino* Other: See Comments Cortisone Doxycycline Unknown Iv Dye [Iodinated C* Rash Montelukast Unknown, Rash Oxycodone Unknown Sulfa (Sulfonamide * Latex Rash Current Outpatient Medications Medication Sig pregabalin (LYRICA) 150 mg capsule Take 1 capsule by mouth three times daily for 30 days. Do not start before February 09, 2023. HYDROcodone-Acetaminophen (NORCO) 10-325 mg per tablet Take 1 tablet by mouth every 6 hours as needed for pain for up to 30 days. Do not start before February 09, 2023. Metaxalone 400 mg tab Take 0.5-1 tablets by mouth three times daily as needed (pain/). losartan (COZAAR) 50 mg tablet 50 mg twice daily. hydrALAZINE (APRESOLINE) 10 mg tablet TAKE 1 TABLET BY MOUTH FOUR TIMES DAILY NEEDED IF SBP >160 FOR 30 DAYS nebivolol (BYSTOLIC) 10 mg tablet Take 10 mg by mouth once daily. ondansetron orally disintegrating (ZOFRAN ODT) 4 mg disintegrating tablet Take 4 mg by mouth every 6 hours as needed. For Nausea lidocaine (LIDODERM) 5 % Apply 1 Patch as directed every 24 hours. ondansetron (ZOFRAN) 4 mg tablet TAKE 1 TABLET BY MOUTH EVERY 6 HOURS NEEDED FOR NAUSEA OR FOR VOMITING omeprazole (PRILOSEC) 20 mg capsule TAKE 1 CAPSULE BY MOUTH DAILY ON AN EMPTY STOMACH QVAR REDIHALER 80 mcg/actuation inhaler INHALE 2 PUFFS BY MOUTH and into the lungs TWICE DAILY aspirin, enteric coated (ASPIRIN, ENTERIC COATED) 81 mg EC tablet 81 mg. albuterol HFA (PROVENTIL HFA, VENTOLIN HFA) 90 mcg/actuation inhaler INHALE 2 PUFFS BY MOUTH and into the lungs FOUR TIMES DAILY NEEDED furosemide (LASIX) 40 mg tablet 40 mg. ALPRAZolam (XANAX) 1 mg tablet Take 1 mg by mouth three times daily. mv, min #36-iron,carbonyl-FA (GERITOL COMPLETE) 16 mg iron- 0.38 mg tab Geritol Complete 16 mg iron- 0.38 mg tablet lidocaine-prilocaine (EMLA) 2.5-2.5 % cream 1-2 g as needed. furosemide (LASIX) 20 mg tablet Take 20 mg by mouth as needed. iron/vitamin B complex (GERITOL ORAL) Take by mouth. tolterodine ER (DETROL LA) 4 mg 24 hr capsule Take 1 capsule by mouth once daily. lidocaine-methyl lisa-menthol 5-10-3 % ktop lidocaine 5 % oint fluticasone (FLOVENT) 220 mcg/actuation inhaler flovent hfa 220 mcg/act aero methylphenidate (RITALIN) 20 mg tablet Take 20 mg by mouth twice daily. levothyroxine (SYNTHROID) 50 mcg tablet Take 50 mcg by mouth daily before breakfast. ergocalciferol 50,000 unit capsule (VITAMIN D2, DRISDOL) Take 50,000 Units by mouth once each week. meclizine (ANTIVERT) 25 mg tab Take 25 mg by mouth as needed. For dizziness No current facility-administered medications for this visit. PHYSICAL EXAMINATION: VIDEO EXAM: (performed via video enabled technology) GENERAL: alert and appropriate, in no distress and well-hydrated, well nourished HEAD: normocephalic, no abnormality or lesion noted RESPIRATORY: breathing non-labored NEUROLOGIC: no obvious deficit ASSESSMENT: Patient is stable. Chronic pain is persistent. Medications are helping Carol Ann Orellana to have an improved quality of life. Patient compliance with Opioid Contract: patient is compliant Encounter Diagnosis ICD-10-CM 1. Other chronic pain G89.29 2. Lumbar radiculopathy M54.16 3. 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 Neck pain M54.2 PLAN: The patient understands the goal of our treatment is a reduction in pain and/or an improved level of functioning with activities of daily living. If at any time the patient does not feel the medications are helping them to achieve these goals, the medications may be discontinued. The patient reports a reduction in pain and/or an improved level of functioning with activities of daily living, denies any significant adverse effects, is compliant with the pain management agreement and there are no signs of medication misuse, abuse or diversion; therefore, the medications will be continued. Continue [place] Continue Lyrica Pt is declining procedures at this time Continue Lidocaine ointment Continue Lidocaine patches Continue OTC stool softeners and Colace Continue LB brace Continue care with specialists Continue metaxalone Order physical therapy with dry needling If ineffective she will trial bilateral SNRB at C4-5 F/U in 1 month Zoila Valiente APRN.SOPHIA documented in this encounterSumma Health06-16-2023 Instructions* Patient Instructions* Zoila Valiente APRN.CNP - 02/27/2023 8:52 AM EDT Continue [place] Continue Lyrica Pt is declining procedures at this time Continue Lidocaine ointment Continue Lidocaine patches Continue OTC stool softeners and Colace Continue LB brace Continue care with specialists Continue metaxalone Order physical therapy with dry needling If ineffective she will trial bilateral SNRB at C4-5 F/U in 1 month documented in this encounterSumma Health05-26-2023 NoteHNO ID: [id number] Author: Reji Rodriguez APRN.CNP Service: ? Author Type: Nurse Practitioner Type: Progress Notes Filed: 02/10/2023 1:03 PM Note Text: VIRTUAL SPINE SURGERY OUTPATIENT CONSULT This is a virtual visit using RealPage video visit. It required patient-provider interaction for the medical decision making as documented below. I have communicated my name and active licensure. The patient's identity and physical location were verified at the time of this visit. Either the patient or their legal workforce services representative has been informed of the risks and benefits of -- and alternatives to -- treatment through a remote evaluation and consents to proceed with the evaluation remotely. SERVICE DATE: 02/06/2023 PCP: Ricardo Ruiz DO, DO REFERRING PROVIDER: No referring provider defined for this encounter. Consult requested for an opinion regarding the evaluation and treatment of neck pain and headaches. My final impression and recommendations will be communicated back to the requesting physician by way of the shared medical record or letter via [place] mail. SUBJECTIVE Carol Ann Orellana is a 77 year old female presenting alone via virtual visit. Headache all the time Just PCP saw Neurologist in [place] Neck pain feels tightness severe headache ringing in right ear Numb whole left hand; tingling in right arm left shoulder CHIEF COMPLAINT: Neck pain and headaches Patient states that in June 2022 she had a fall where she fell headfirst into a door frame since then she has been unable to touch her head or any part of her face and she feels when she lays flat on her head she feels like there is a ridge underneath her head. She states she has headaches all the time and they never go away they range from mild to severe. When the headaches are severe it causes ringing in her right ear. She also endorses neck pain which makes the headaches worse she describes the neck pain as a tightness around her neck as well as left shoulder pain. She also endorses that her left hand is numb, and she gets tingling in her right upper arm. She went to her PCP for this pain and he sent her to Neurologist in [place] who is further working her up for the cause of her headaches. CMT: [place] lower back pain QID 10 mg Tylenol Lyrica for fibromylagia Denies bowel and bladder incontinence Feels like she has unsteady gait and feels like she is off balance she does have some significant history of vertigo HISTORY OF PRESENT ILLNESS PRECIPITATING EVENT: FallJune 2022 DURATION OF SYMPTOMS: Greater Than 1 Year PAIN EVALUATION 02/05/2023 1405 Pain Level: 5 Pain Location: Head Description: Dull;Pressure;Pulsating;Radiating;Shooting;Sore;Stabbing;Throbbing Duration Amount of Time: 8 Duration Units: Months Frequency: Continuous Intervention/Comfort measure: Medication;Reposition;Relaxation;Heat;Pillow support;Positioning;Rocking/holding Comments: Pain has me very distressed Pain Radiation: from the neck radiates into head and shoulder and intermittently down her arms AMBULATORY STATUS: Independent Community Distances ANTIPLATELET OR ANTICOAGULATION STATUS: No PREVIOUS CONSERVATIVE TREATMENTS: See HPI PREVIOUS SPINAL SURGERY: None ACTIVE PROBLEM LIST Other and Unspecified Derangement of Medial Meniscus Benign Neoplasm of Other Specified Sites Difficulty Voiding Feeling of Incomplete Bladder Emptying Urgency of Urination Hydronephrosis Uti (Urinary Tract Infection) Ankle Pain, Left Back Pain Hip Pain Leg Pain, Left Arthropathy of Lumbar Facet Joint Lumbar Radiculopathy Other Chronic Pain Degeneration of Intervertebral Disc of Lumbar Region Correction (Current) Use of Opiate Analgesic Fibromyositis Lumbar Post-Laminectomy Syndrome Opioid Dependence, Continuous (Hcc) Anxiety Benign Essential Hypertension Benign Paroxysmal Positional Vertigo Calcific Tendinitis of Left Shoulder Concussion Without Loss of Consciousness Contusion of Shoulder Gastroesophageal Reflux Disease Constipation History of Pulmonary Embolism Hypertension Hypothyroidism Hypoxemia Insomnia Lymphedema of Right Lower Extremity Lymphedema of Right Upper Extremity Malignant Neoplasm of Breast (Hcc) Migraine Hiatal Hernia History of Malignant Neoplasm of Breast Neuropathy Swelling of Lower Extremity Venous Stasis Ulcer of Lower Extremity (Hcc) Vitamin D Deficiency Weakness Attention Deficit Hyperactivity Disorder (Adhd), Predominantly Inattentive Type Chronic Obstructive Pulmonary Disease (Hcc) Lethargy Bronchiectasis, Uncomplicated (Hcc) Dysuria Epidermal Cyst Fever, Unspecified Pulmonary Fibrosis, Unspecified (Hcc) Unspecified Symptoms and Signs Involving The Genitourinary System Unspecified Toxic Encephalopathy Low Back Pain With Sciatica Lacunar Stroke (Hcc) PAST MEDICAL HISTORY Diagnosis Date Bladder infection Breast cancer (HCC) (more content not included)...[facility] 02-06-2023 History of Present illness Narrative* Reji Rodriguez, [employer].NUCLEAR FUEL PROCESSING TECHNICIAN - 02/06/2023 3:05 PM EDT Images from the original note were not included. VIRTUAL SPINE SURGERY OUTPATIENT CONSULT This is a virtual visit using RealPage video visit. It required patient-provider interaction for themedical decision making as documented below. I have communicated my name and active licensure. The patient's identity and physical location wereverified at the time of this visit. Either the patient or their legal workforce services representative has been informed of the risks and benefits of -- and alternatives to -- treatment through a remote evaluation andconsents to proceed with the evaluation remotely. SERVICE DATE: 02/06/2023 PCP: Ricardo Ruiz, , DO REFERRING PROVIDER: No referring provider defined for this encounter. Consult requested for an opinion regarding the evaluation and treatment of neck pain and headaches.My final impression and recommendations will be communicated back to the requesting physician by way of the shared medical record or letter via US mail. SUBJECTIVE Carol Ann Orellana is a 77 year old female presenting alone via virtual visit. Headache all the time Just PCP saw Neurologist in [place] Neck pain feels tightness severe headache ringing in right ear Numb whole left hand; tingling in right arm left shoulder CHIEF COMPLAINT: Neck pain and headaches Patient states that in June 2022 she had a fall where she fell headfirst into a door frame [place] she has been unable to touch her head or any part of her face and she feels when she lays flaton her head she feels like there is a ridge underneath her head. She states she has headaches all the time and they never go away they range from mild to severe. When the headaches are severe it causes ringing in her right ear. She also endorses neck pain which makes the headaches worse she describes the neck pain as a tightness around her neck as well as left shoulder pain. She also endorses that her left hand is numb, and she gets tingling in her right upper arm. She went to her PCP for this pain and he sent her to Neurologist in [place] who is further working her up for the cause of her headaches. CMT: [place] lower back pain QID 10 mg Tylenol Lyrica for fibromylagia Denies bowel and bladder incontinence Feels like she has unsteady gait and feels like she is off balance she does have some significant history of vertigo HISTORY OF PRESENT ILLNESS PRECIPITATING EVENT: FallJune 2022 DURATION OF SYMPTOMS: Greater Than 1 Year PAIN EVALUATION 02/05/2023 1405 Pain Level: 5 Pain Location: Head Description: Dull;Pressure;Pulsating;Radiating;Shooting;Sore;Stabbing;Throbbing Duration Amount of Time: 8 Duration Units: Months Frequency: Continuous Intervention/Comfort measure: Medication;Reposition;Relaxation;Heat;Pillow support;Positioning;Rocking/holding Comments: Pain has me very distressed Pain Radiation: from the neck radiates into head and shoulder and intermittently down her arms AMBULATORY STATUS: Independent Community Distances ANTIPLATELET OR ANTICOAGULATION STATUS: No PREVIOUS CONSERVATIVE TREATMENTS: See HPI PREVIOUS SPINAL SURGERY: None ACTIVE PROBLEM LIST Other and Unspecified Derangement of Medial Meniscus Benign Neoplasm of Other Specified Sites Difficulty Voiding Feeling of Incomplete Bladder Emptying Urgency of Urination Hydronephrosis Uti (Urinary Tract Infection) Ankle Pain, Left Back Pain Hip Pain Leg Pain, Left Arthropathy of Lumbar Facet Joint Lumbar Radiculopathy Other Chronic Pain Degeneration of Intervertebral Disc of Lumbar Region Teaseler (Current) Use of Opiate Analgesic Fibromyositis Lumbar Post-Laminectomy Syndrome Opioid Dependence, Continuous (Hcc) Anxiety Benign Essential Hypertension Benign Paroxysmal Positional Vertigo Calcific Tendinitis of Left Shoulder Concussion Without Loss of Consciousness Contusion of Shoulder Gastroesophageal Reflux Disease Constipation History of Pulmonary Embolism Hypertension Hypothyroidism Hypoxemia Insomnia Lymphedema of Right Lower Extremity Lymphedema of Right Upper Extremity Malignant Neoplasm of Breast (Hcc) Migraine Hiatal Hernia History of Malignant Neoplasm of Breast Neuropathy Swelling of Lower Extremity Venous Stasis Ulcer of Lower Extremity (Hcc) Vitamin D Deficiency Weakness Attention Deficit Hyperactivity Disorder (Adhd), Predominantly Inattentive Type Chronic Obstructive Pulmonary Disease (Hcc) Lethargy Bronchiectasis, Uncomplicated (Hcc) Dysuria Epidermal Cyst Fever, Unspecified Pulmonary Fibrosis, Unspecified (Hcc) Unspecified Symptoms and Signs Involving The Genitourinary System Unspecified Toxic Encephalopathy Low Back Pain With Sciatica Lacunar Stroke (Hcc) PAST MEDICAL HISTORY Diagnosis Date Bladder infection Breast cancer (HCC) GERD (gastroesophageal reflux disease) Kidney stones Leg pain Migraines Neurogenic bladder Osteoarthrosis, unspecified whether generalized or localized, other specified sites Osteoporosis Other and unspecified disc disorder of unspecified region Intervertebral disc disorders DIAMOND (stress urinary incontinence, female) Thyroid disease Urethral hypermobility Urge incontinence Urgency of urination PAST SURGICAL HISTORY Procedure Laterality Date ANESTHESIA TOTAL KNEE REPLACEMENT APPENDECTOMY 08/1961 ARTHROTOMY KNEE W/SYNOVIAL BIOPSY ONLY Semilunar cartilage, knee - right BACK SURGERY HX 2011 BLADDER SURGERY HX 2012 BREAST SURGERY HX Right 2018 breast and 3 lymph nodes removed CARPAL TUNNEL Left 12/1979 CATARACT EXTRACTION HX CATARACT EXTRACTION HX 2009 CHOLECYSTECTOMY ELBOW SURGERY HX Left 1994 EXPLORATORY LAPAROTOMY CELIOTOMY W/WO BIOPSY SPX Laparotomy, exp - lysis of adhesions HAND SURGERY HX Right 1989 KNEE SURGERY HX Right removal of meniscus LX EXCISION OF BLADDER TUMOR 1979, 1983 OOPHORECTOMY PARTIAL/TOTAL UNI/BI Oophorectomy TOTAL ABDOMINAL HYSTERECT W/WO RMVL TUBE OVARY Hysterectomy, TOTAL KNEE REPLACEMENT 2009 FAMILY HISTORY Problem Relation Age of Onset Diabetes Mother Stroke Mother Hypertension Mother Heart Father Hypertension Father Heart disease Brother Diabetes Brother Social History Tobacco Use Smoking status: Former Years: 15.00 Types: Cigarettes Quit date: 1982 Years since quittin.4 Smokeless tobacco: Never Substance Use Topics Alcohol use: No Drug use: No ALLERGIES Allergen Reactions Oxycodone-Acetamino* Other: See Comments Cortisone Doxycycline Unknown Iv Dye [Iodinated C* Rash Montelukast Unknown, Rash Oxycodone Unknown Sulfa (Sulfonamide * Latex Rash MEDICATIONS: [START ON 02/09/2023] pregabalin (LYRICA) 150 mg capsule Take 1 capsule by mouth three times daily for 30 days. Do not start before February 09, 2023. [START ON 02/09/2023] HYDROcodone-Acetaminophen (NORCO) 10-325 mg per tablet Take 1 tablet by mouth every 6 hours as needed for pain for up to 30 days. Do not start before February 09, 2023. Metaxalone 400 mg tab Take 0.5-1 tablets by mouth three times daily as needed (pain/). losartan (COZAAR) 50 mg tablet 50 mg twice daily. hydrALAZINE (APRESOLINE) 10 mg tablet TAKE 1 TABLET BY MOUTH FOUR TIMES DAILY NEEDED IF SBP >160 FOR 30 DAYS nebivolol (BYSTOLIC) 10 mg tablet Take 10 mg by mouth once daily. ondansetron orally disintegrating (ZOFRAN ODT) 4 mg disintegrating tablet Take 4 mg by mouth every 6 hours as needed. For Nausea lidocaine (LIDODERM) 5 % Apply 1 Patch as directed every 24 hours. ondansetron (ZOFRAN) 4 mg tablet TAKE 1 TABLET BY MOUTH EVERY 6 HOURS NEEDED FOR NAUSEA OR FOR VOMITING omeprazole (PRILOSEC) 20 mg capsule TAKE 1 CAPSULE BY MOUTH DAILY ON AN EMPTY STOMACH QVAR REDIHALER 80 mcg/actuation inhaler INHALE 2 PUFFS BY MOUTH and into the lungs TWICE DAILY aspirin, enteric coated (ASPIRIN, ENTERIC COATED) 81 mg EC tablet 81 mg. albuterol HFA (PROVENTIL HFA, VENTOLIN HFA) 90 mcg/actuation inhaler INHALE 2 PUFFS BY MOUTH and into the lungs FOUR TIMES DAILY NEEDED furosemide (LASIX) 40 mg tablet 40 mg. ALPRAZolam (XANAX) 1 mg tablet Take 1 mg by mouth three times daily. mv, min #36-iron,carbonyl-FA (GERITOL COMPLETE) 16 mg iron- 0.38 mg tab Geritol Complete 16 mg iron- 0.38 mg tablet lidocaine-prilocaine (EMLA) 2.5-2.5 % cream 1-2 g as needed. furosemide (LASIX) 20 mg tablet Take 20 mg by mouth as needed. iron/vitamin B complex (GERITOL ORAL) Take by mouth. tolterodine ER (DETROL LA) 4 mg 24 hr capsule Take 1 capsule by mouth once daily. lidocaine-methyl lisa-menthol 5-10-3 % ktop lidocaine 5 % oint fluticasone (FLOVENT) 220 mcg/actuation inhaler flovent hfa 220 mcg/act aero methylphenidate (RITALIN) 20 mg tablet Take 20 mg by mouth twice daily. levothyroxine (SYNTHROID) 50 mcg tablet Take 50 mcg by mouth daily before breakfast. ergocalciferol 50,000 unit capsule (VITAMIN D2, DRISDOL) Take 50,000 Units by mouth once each week. meclizine (ANTIVERT) 25 mg tab Take 25 mg by mouth as needed. For dizziness REVIEW OF SYSTEMS: GENERAL: No weight loss or malaise MUSCULOSKELETAL: Negative for joint pain, swelling or muscle pain NEURO: No history of headaches, syncope, paralysis, seizures or tremors Patient Entered Questionnaires Spine Questions 02/05/2023 Pain Location: Other Pain Duration: 6 months - 1 year Pain over last 6 months: Every day or nearly every day in the past 6 months Symptoms from neck/cervical spine: No Employment Status: Retired Involved in law suit/legal claim: No PROMIS Score Percentiles Physical Health 02/05/2023 Physical Function Percentile 18* Sleep Percentile 4 Fatigue Percentile 8 Pain Interference Percentile 4 PROMIS SOCIAL ROLE SCORE 02/05/2023 Social Role Satisfaction Percentile 1 PROMIS Global Health Scale 12/09/2022 Physical Health Percentile 22* Mental Health Percentile 43 Percentiles provide an indication of how the patient's score ranks in relation to the general population. Higher percentile rankings indicate better function/quality of life. 50th percentile is the average of the general population and indicates half of respondents had a worse score. Depression Screening: PHQ-9 02/05/2023 Score 2 PHQ-9 Self-harm Question 02/05/2023 Thoughts that you would be better off , or of hurting yourself in some way 0 PHQ-9 Self-Harm (Item 9) response options: 0 Not at all 1 Several days 2 More than half the days 3 Nearly every day PHQ-9 Levels: 0-4 No to mild depression 5-9 Mild depression 10-14 Moderate depression 15-19 Moderately severe depression 20-27 Severe depression OBJECTIVE: PHYSICAL EXAM limited due to VV There were no vitals taken for this visit. GENERAL APPEARANCE: Well nourished, well developed, and no apparent distress. NEURO PSYCH: Patient oriented to person, place, and time. Mood pleasant. Benign affect. L'HERMITTES SIGN: Negative. SPURLING'S TEST: Negative. DATA REVIEW Images independently reviewed with the patient MRI cervical shows cervical spondylosis with high-grade foraminal stenoses at C5-C6. ASSESSMENT/PLAN (M50.10) Cervical disc disorder with radiculopathy (primary encounter diagnosis) (G44.209) Tension headache Carol Ann Orellana will continue with medical management of his/her condition and has a condition thatrequires further workup. 1. Consults: Medical Spine Intervention headache clinic 2. Follow up: 2-4 weeks after injection to see if improvement in symptoms I spent a total of 40 minutes on the date of the service which included preparing to see the patient, [id number] patient care, completing clinical documentation, obtaining and/or reviewing separately obtained history, performing a medically appropriate examination, counseling and educating the pat ient/family/caregiver, independently interpreting results (not separately reported), and communicating results to the patient/family/caregiver. SIGNATURE: Reji Rodriguez APRN.CNP PATIENT NAME: Carol Ann Orellana DATE: February 06, 2023 TIME: 3:05 PM PAGER: documented in this encounterSumma Health04-14-2023 History of Present illness Narrative* Zoila Valiente APRN.CNP - 12/26/2022 3:00 PM EDT This video visit was performed via RealPage video visit. Patient consented to receive health care services via virtual visit for this encounter Provider Location[facility] Patient Location: Patient Home or Place of Residence I have communicated my name and active licensure. The patient's identity and physical location wereverified at the time of this visit. Either the patient or their legal workforce services representative has been informed of the risks and benefits of -- and alternatives to -- treatment through a remote evaluation andconsents to proceed with the evaluation remotely. Chief Complaint: Pain History of Present Illness: Carol Ann Orellana is a 77 year old year old female being seen at [facility] for a evaluation and/or management of her chronic pain. The patient was last seen virtually on 11/27/2022. She states that since the last visit symptoms have been persistent. Her medical history has not changed and she denies any hospital stays or ER visits. Pain Location: lower back -mid back, right leg pain, left shoulder, neck Radiation: arms and legs Character: aching Intensity: 5/10 Numbness/tingling: legs Burning: occasionally feet Weakness: arms Falls: denies Worsening factors: physical activity and cold weather Relieving factors: rest and medication Patient denies any bowel or bladder dysfunction. The patient is currently prescribed [place], lyrica and lidocaine cream from our office. The last dose of [place] were taken today. The medications are partially effective. PDMP website checked and validated. [place]AR[place] report reviewed and is consistent with the patients medical history and medication intake. Last Opioid agreement effective date: 10/03/2022 Pain Panel: Reviewed - No inconsistencies noted. Urine Panel: Lab Results Component Value Date Cannabinoid Quant, Urine <16 11/07/2022 Benzoylecgonine Quant, Urine <24 11/07/2022 6-Acetylmorphine Quant, Urine <5 11/07/2022 Amphetamine Quant, Urine <5 11/07/2022 Methamphetamine Quant, Urine <8 11/07/2022 Buprenorphine Quant, Urine <20 11/07/2022 Norbuprenorphine Quant, Urine <20 11/07/2022 Methadone Quant, Urine <16 11/07/2022 EDDP Quant, Urine <6 11/07/2022 Tramadol Quant, Urine <25 11/07/2022 Desmethyltramadol Quant, Urine <20 11/07/2022 Fentanyl Quant, Urine <6 11/07/2022 Norfentanyl Quant, Urine <6 11/07/2022 Codeine Quant, Urine <11 11/07/2022 Morphine Quant, Urine <10 11/07/2022 Dihydrocodeine Quant, Urine 577 (H) 11/07/2022 Hydrocodone Quant, Urine 3,002 (H) 11/07/2022 Oxycodone Quant, Urine <10 11/07/2022 Hydromorphone Quant, Urine 434 (H) 11/07/2022 Oxymorphone Quant, Urine <5 11/07/2022 Chronic Pain Functional Assessment Tools Pain Disability Index: Pain Disability Index 11/24/2022 12/22/2022 Family/Home Responsibilities 0 No Disability 0 No Disability Recreation 5 5 Social Activity 4 5 Occupation 0 No disability 0 No disability Sexual Behavior 0 No disability 0 No disability Self Care 0 No disability 0 No disability Life Support Activity 0 No disability 0 No disability PDI Score 9 10 Pain Enjoyment of Life and General Activity Scale (0-10): PEG: A Three-Item Scale Assessing Pain Intensity and Interference What number best describes your pain on average in the past week?: 6 (12/22/2022 3:44 PM) What number best describes how, during the past week, pain has interfered with your enjoyment of life?: 5 (12/22/2022 3:44 PM) What number best describes how, during the past week, pain has interfered with your general activity?: 6 (12/22/2022 3:44 PM) REVIEW OF SYSTEMS: GENERAL: No weight loss or fevers RESPIRATORY: Negative for cough CARDIOVASCULAR: Negative for chest pain GI: No nausea, vomiting, or diarrhea. MUSCULOSKELETAL: back pain and muscle pain PAST MEDICAL HISTORY Diagnosis Date Bladder infection Breast cancer (HCC) GERD (gastroesophageal reflux disease) Kidney stones Leg pain Migraines Neurogenic bladder Osteoarthrosis, unspecified whether generalized or localized, other specified sites Osteoporosis Other and unspecified disc disorder of unspecified region Intervertebral disc disorders DIAMOND (stress urinary incontinence, female) Thyroid disease Urethral hypermobility Urge incontinence Urgency of urination PAST SURGICAL HISTORY Procedure Laterality Date ANESTHESIA TOTAL KNEE REPLACEMENT APPENDECTOMY 08/1961 ARTHROTOMY KNEE W/SYNOVIAL BIOPSY ONLY Semilunar cartilage, knee - right BACK SURGERY HX 2011 BLADDER SURGERY HX 2012 BREAST SURGERY HX Right 2018 breast and 3 lymph nodes removed CARPAL TUNNEL Left 12/1979 CATARACT EXTRACTION HX CATARACT EXTRACTION HX 2009 CHOLECYSTECTOMY ELBOW SURGERY HX Left 1994 EXPLORATORY LAPAROTOMY CELIOTOMY W/WO BIOPSY SPX Laparotomy, exp - lysis of adhesions HAND SURGERY HX Right 1989 KNEE SURGERY HX Right removal of meniscus LX EXCISION OF BLADDER TUMOR 1979, 1983 OOPHORECTOMY PARTIAL/TOTAL UNI/BI Oophorectomy TOTAL ABDOMINAL HYSTERECT W/WO RMVL TUBE OVARY Hysterectomy, TOTAL KNEE REPLACEMENT 2009 FAMILY HISTORY Problem Relation Age of Onset Diabetes Mother Stroke Mother Hypertension Mother Heart Father Hypertension Father Heart disease Brother Diabetes Brother Social History Tobacco Use Smoking status: Former Years: 15.00 Types: Cigarettes Quit date: 1982 Years since quittin.3 Smokeless tobacco: Never Substance Use Topics Alcohol use: No Drug use: No Allergies: Oxycodone-Acetamino* Other: See Comments Cortisone Doxycycline Unknown Iv Dye [Iodinated C* Rash Montelukast Unknown, Rash Oxycodone Unknown Sulfa (Sulfonamide * Latex Rash Current Outpatient Medications Medication Sig HYDROcodone-Acetaminophen (NORCO) 10-325 mg per tablet Take 1 tablet by mouth every 6 hours as needed for pain for up to 30 days. Do not start before December 11, 2022. pregabalin (LYRICA) 150 mg capsule Take 1 capsule by mouth three times daily for 30 days. Do not start before December 11, 2022. losartan (COZAAR) 50 mg tablet 50 mg twice daily. hydrALAZINE (APRESOLINE) 10 mg tablet TAKE 1 TABLET BY MOUTH FOUR TIMES DAILY NEEDED IF SBP >160 FOR 30 DAYS nebivolol (BYSTOLIC) 10 mg tablet Take 10 mg by mouth once daily. ondansetron orally disintegrating (ZOFRAN ODT) 4 mg disintegrating tablet Take 4 mg by mouth every 6 hours as needed. For Nausea lidocaine (LIDODERM) 5 % Apply 1 Patch as directed every 24 hours. ondansetron (ZOFRAN) 4 mg tablet TAKE 1 TABLET BY MOUTH EVERY 6 HOURS NEEDED FOR NAUSEA OR FOR VOMITING omeprazole (PRILOSEC) 20 mg capsule TAKE 1 CAPSULE BY MOUTH DAILY ON AN EMPTY STOMACH QVAR REDIHALER 80 mcg/actuation inhaler INHALE 2 PUFFS BY MOUTH and into the lungs TWICE DAILY aspirin, enteric coated (ASPIRIN, ENTERIC COATED) 81 mg EC tablet 81 mg. albuterol HFA (PROVENTIL HFA, VENTOLIN HFA) 90 mcg/actuation inhaler INHALE 2 PUFFS BY MOUTH and into the lungs FOUR TIMES DAILY NEEDED furosemide (LASIX) 40 mg tablet 40 mg. ALPRAZolam (XANAX) 1 mg tablet Take 1 mg by mouth three times daily. mv, min #36-iron,carbonyl-FA (GERITOL COMPLETE) 16 mg iron- 0.38 mg tab Geritol Complete 16 mg iron- 0.38 mg tablet lidocaine-prilocaine (EMLA) 2.5-2.5 % cream 1-2 g as needed. furosemide (LASIX) 20 mg tablet Take 20 mg by mouth as needed. iron/vitamin B complex (GERITOL ORAL) Take by mouth. tolterodine ER (DETROL LA) 4 mg 24 hr capsule Take 1 capsule by mouth once daily. lidocaine-methyl lisa-menthol 5-10-3 % ktop lidocaine 5 % oint fluticasone (FLOVENT) 220 mcg/actuation inhaler flovent hfa 220 mcg/act aero methylphenidate (RITALIN) 20 mg tablet Take 20 mg by mouth twice daily. levothyroxine (SYNTHROID) 50 mcg tablet Take 50 mcg by mouth daily before breakfast. ergocalciferol 50,000 unit capsule (VITAMIN D2, DRISDOL) Take 50,000 Units by mouth once each week. meclizine (ANTIVERT) 25 mg tab Take 25 mg by mouth as needed. For dizziness No current facility-administered medications for this visit. PHYSICAL EXAMINATION: VIDEO EXAM: (performed via video enabled technology) GENERAL: alert and appropriate, in no distress and well-hydrated, well nourished HEAD: normocephalic, no abnormality or lesion noted RESPIRATORY: breathing non-labored NEUROLOGIC: no obvious deficit ASSESSMENT: Patient is stable. Chronic pain is persistent. Medications are helping Carol Ann Orellana to have an improved quality of life. Patient compliance with Opioid Contract: patient is compliant Encounter Diagnosis ICD-10-CM 1. Other chronic pain G89.29 2. Lumbar radiculopathy M54.16 3. 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 Neck pain M54.2 PLAN: The patient understands the goal of our treatment is a reduction in pain and/or an improved level of functioning with activities of daily living. If at any time the patient does not feel the medications are helping them to achieve these goals, the medications may be discontinued. The patient reports a reduction in pain and/or an improved level of functioning with activities of daily living, denies any significant adverse effects, is compliant with the pain management agreement and there are no signs of medication misuse, abuse or diversion; therefore, the medications will be continued. Continue [place] Continue Lyrica Patient will call to schedule RFA when she is ready. Pt is declining procedures at this time Continue Lidocaine ointment Continue Lidocaine patches Continue OTC stool softeners and Colace Continue LB brace Continue care with specialists F/U in 1 month Zoila Valiente APRN.CNP documented in this encounter[facility]04-14-2023 Instructions* Patient Instructions* Zoila Valiente APRN.CNP - 12/26/2022 1:06 PM EDT Continue [place] Continue Lyrica Patient will call to schedule RFA when she is ready. Pt is declining procedures at this time Continue Diclofenac gel and Lidocaine ointment Continue Lidocaine patches Continue OTC stool softeners and Colace Continue LB brace Continue care with specialists Script for medrol dose pack F/U in 1 month documented in this encounterSumma Health04-07-2023 NoteHNO ID: [id number] Author: Rosi Camejo PA-C Service: ? Author Type: Physician Spa Consultant Type: Progress Notes Filed: 12/19/2022 3:37 PM Note Text: Per Triage: Carol Ann Orellana is a 77 year old female that requests evaluation of spine. Per review, they have symptoms of neck pain, headaches, numbness and tingling legs and feet. Arm pain. Numbness left arm to hand Request: 1st available Referring provider: Jena Felix PA-C Patient out of state: no 2nd opinion: no Prior spine surgery: yes 2012 [facility] Address: [address], [place] [address] CMT: Lyrica Hydrocodone Studies (Reports unless indicated) Cervical xray 11/11/22: Cervical spondylosis. 1.5 mm retrolisthesis at C4-5 which results in neutral and flexion positions. Lumbar xray 11/07/22: Levoscoliosis of the lumbar spine. Preservation of vertebral body height. Postsurgical changes from posterior fusion of L5/S1 with. Pedicular screw and patricia device and with disc space material again identified without radiographic evidence of hardware complications. Stable minimal grade 1 retrolisthesis of L1 on L2. Stable grade 1 anterolisthesis of L3 on L4 and of L4 on L5. No radiographic evidence of abnormal motion with voluntary flexion/extension maneuvers. Stable disc space narrowing within the lumbar spine which appears most pronounced at L4/L5 where there is also endplate sclerosis. MRI cervical spine 12/02/22: Cervical spondylosis with high-grade foraminal stenoses at C5-C6. No significant cord compression. Normal signal and morphology of the cervical and visualized upper thoracic cord. 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 Unsure if symptoms correlate If VV, please advise pt to send or upload relevant outside images prior to appt so they will be available for review during the appt If office visit, please advise pt to hand carry relevant images on CD to the appt so they can be reviewed during the appt [facility] History of Present illness Narrative* Rosi Camejo PA-C - 12/19/2022 3:27 PM EDT Per Triage: Carol Ann Orellana is a 77 year old female that requests evaluation of spine. Per review, they have symptoms of neck pain, headaches, numbness and tingling legs and feet. Arm pain. Numbness left arm to hand Request: 1st available Referring provider: Jena Felix PA-C Patient out of state: no 2nd opinion: no Prior spine surgery: yes 2012 [facility] Address: [address] [place] [address], [place] [address] CMT: Lyrica Hydrocodone Studies (Reports unless indicated) Cervical xray 11/11/22: Cervical spondylosis. 1.5 mm retrolisthesis at C4-5 which results in neutral and flexion positions. Lumbar xray 11/07/22: Levoscoliosis of the lumbar spine. Preservation of vertebral body height. Postsurgical changes from posterior fusion of L5/S1 with. Pedicular screw and patricia device and with disc space material again identified without radiographic evidence of hardware complications. Stable minimal grade 1 retrolisthesis of L1 on L2. Stable grade 1 anterolisthesis of L3 on L4 and of L4 on L5. No radiographic evidence of abnormal motion with voluntary flexion/extension maneuvers. Stable disc space narrowing within the lumbar spine which appears most pronounced at L4/L5 where there is also endplate sclerosis. MRI cervical spine 12/02/22: Cervical spondylosis with high-grade foraminal stenoses at C5-C6. No significant cord compression. Normal signal and morphology of the cervical and visualized upper thoracic cord. 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 Unsure if symptoms correlate If VV, please advise pt to send or upload relevant outside images prior to appt so they will be available for review during the appt If office visit, please advise pt to hand carry relevant images on CD to the appt so they can be reviewed during the appt Rosi Camejo PA-C * Jc Sellers - 12/18/2022 2:55 PM EDT Patient name: Carol Ann Orellana Are you being referred by a Center for Spine Health Provider or Pain Management Provider at [facility]? No If answer is "YES" please schedule directly with surgeon, triage does not need to be completed. Is this a self-referral No If not, who is the Referring Provider Jena Felix PA-C Is this a 2nd opinion? No Were you offered surgery? No MRI/CT/myelogram within 12 months? Yes If "NO", please refer to medical spine or PCP to complete above imaging, triage does not need to be completed If "YES, please ask for the name/address of the facility where the MRI/CT/myelogram was completed: [facility] MRI/CT/myelogram viewable in Epic: Yes If not, please provide [phone] to fax in imaging reports for review. Also, please inform patient to hand carry imaging disc to appointment. XR (spine) within 12 months: Yes If "YES, please ask for the name/address of the facility where the XR was completed: [facility] Dr[facility] Bernard[facility] patients: Have you had previous EMG/Nerve Conduction Study, Ultrasound, or MRI for thesesame symptoms? If "YES, please ask for the name/address of the facility where they were completed: Requested provider (First and Last name): UN Are you interested in a virtual visit if offered? No 1. Where are you having symptoms related to this visit? Neck pain Headaches Numbness tingling legs and feet Numbness Arm (L) down to hand Back pain Yes Leg pain No Arm pain Yes Neck pain No 2. Are you having any of the following symptoms: Difficulty walking No Numbness Yes Weakness No Trouble using your hands? No 3. Have you had any injections or physical therapy in the last 12 months? No If "YES" then please ask for the name/address of the facility where the injections and/or physical therapy was completed Have you tried any other kinds of non-surgical treatments in the last 12 months? (For example: NSAIDS, muscle relaxants, analgesics, oral steroids, Chiropractor, Acupuncture): lyrica 4. Are you currently taking daily prescribed narcotic medications for your current symptoms (For example Oxycodone, Hydrocodone, Tramadol, Morphine, Other)? Yes Hydrocodone 5. Have you had previous spinal surgery for this same symptoms? Yes If "YES please ask for the name of facility/address of where the surgery was completed: 2012 [facility] Address: [address] [place] [address] Additional Comments [phone] (Home Phone) documented in this encounterSum[facility] Health04-06-2023 NoteHNO ID: [id number] Author: Jc Sellers Service: ? Author Type: ? Type: Progress Notes Filed: 12/19/2022 3:37 PM Note Text: Patient name: Carol Ann Orellana Are you being referred by a Center for Sp[facility] Provider or Pain Management Provider at [facility]? No If answer is "YES" please schedule directly with surgeon, triage does not need to be completed. Is this a self-referral No If not, who is the Referring Provider Jena Felix PA-C Is this a 2nd opinion? No Were you offered surgery? No MRI/CT/myelogram within 12 months? Yes If "NO", please refer to medical spine or PCP to complete above imaging, triage does not need to be completed If "YES,? please ask for the name/address of the facility where the MRI/CT/myelogram was completed: [facility] MRI/CT/myelogram viewable in Epic: Yes If not, please provide [phone] to fax in imaging reports for review. Also, please inform patient to hand carry imaging disc to appointment. XR (spine) within 12 months: Yes If "YES,? please ask for the name/address of the facility where the XR was completed: [facility] Dr[facility] Bernard[facility] patients: Have you had previous EMG/Nerve Conduction Study, Ultrasound, or MRI for these same symptoms? If "YES,? please ask for the name/address of the facility where they were completed: Requested provider (First and Last name): UN Are you interested in a virtual visit if offered? No 1. Where are you having symptoms related to this visit? Neck pain Headaches Numbness tingling legs and feet Numbness Arm (L) down to hand Back pain Yes Leg pain No Arm pain Yes Neck pain No 2. Are you having any of the following symptoms: Difficulty walking No Numbness Yes Weakness No Trouble using your hands? No 3. Have you had any injections or physical therapy in the last 12 months? No If "YES" then please ask for the name/address of the facility where the injections and/or physical therapy was completed Have you tried any other kinds of non-surgical treatments in the last 12 months? (For example: NSAIDS, muscle relaxants, analgesics, oral steroids, Chiropractor, Acupuncture): lyrica 4. Are you currently taking daily prescribed narcotic medications for your current symptoms (For example Oxycodone, Hydrocodone, Tramadol, Morphine, Other)? Yes Hydrocodone 5. Have you had previous spinal surgery for this same symptoms? Yes If "YES? please ask for the name of facility/address of where the surgery was completed: 2012 [facility] Address: [address] , [place] [address] Additional Comments [phone] (Home Phone)[facility]04-04-2023 NoteHNO ID: [id number] Author: Jena Felix PA-C Service: ? Author Type: Physician Spa Consultant Type: Progress Notes Filed: 12/16/2022 12:18 PM Note Text: ESTABLISHED PATIENT VISIT Last visit: 11/03/[address] Reza ASSESSMENT/PLAN: 1. Intractable acute post-traumatic headache - ICD9: 339.21, ICD10: G44.311 (primary diagnosis) 2. Cervicalgia - ICD9: 723.1, ICD10: M54.2 3. Medication overuse headache - ICD9: 339.3, ICD10: G44.40 4. Hypertension, unspecified type - ICD9: 401.9, ICD10: I10 Patient provides history of acute onset, droopy eye lids and neck pain following head trauma as above that she initially indicates was secondary to head trauma when she fell into a door jam. However, further history suggests she may have had such symptoms even prior to the fall. Difficult to assess whether symptoms are truly acute or chronic and further exacerbated by trauma. Workup at [facility] was reportedly unremarkable. Pt does have history of chronic pain and is followed by pain mgmt. Currently with non-focal exam except for functional finding of splitting sensation on forehead. In addition to history of trauma, patient has other risk factors for worsening headache including taking possible medication overuse with pt on [place], Xanax, Lyrica as well as Ritalin. BP might also be a cause of headaches with pt reporting uncontrolled BPs at home. Given her age, the multiple meds she is on pose other risks as well, and I will not be adding more meds to her regimen at this time. To further evaluate for other etiologies of headache, will get MRI brain to determine if intracranial cause (I.e. slow SDH not seen on CT brain); MRV to evaluate for sinus thrombosis given history of clotting. For neck pain and decreased ROM, will get MRI C spine to evaluate for traumatic changes not seen on CT C spine at OSH. Pt agrees with plan. Pt will follow up after imaging completed. Encouraged pt to follow up with PCP regarding BP and her physicians regarding polypharmacy. William Reza MD CHIEF COMPLAINT: FU imaging HISTORY OF PRESENT ILLNESS: Carol Ann Orellana is a 77 year old female, There were no vitals taken for this visit. with a PMH significant for neuropathy, migraine, insomnia, HTN, pulmonary fibrosis, BPPV, breast cancer. Patient had MRI and MRV of the brain showing pontine stroke. 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 Possible medication overuse headache as well secondary to being on [place], Lyrica and Ritalin through pain management. Patient currently taking a daily aspirin. Has tried physical therapy for neck pain in the back without any benefit. Is been taking her pain medication every day for many years, has never had headaches like this in the past. Patient endorses chronic facial and left-sided head pain since she fell in June, no loss of consciousness at this time and no blood thinner use. Patient notes that her left cheekbone and right ear are tender as well, also endorses history of fibromyalgia and is unsure if this is related. Patient also notes she had multiple root canals, dentist has told her "she has extra nerves". Headache is primarily on the left side towards the front but will occasionally radiate towards the whole head. Not associated with any other symptoms including photophobia, phonophobia, nausea. She also endorses some neck pain, unsure if these are related. Has been to physical therapy many times without any significant improvement, notes that this actually exacerbates her symptoms. Patient notes that her headache is worse when touching the forehead, but not elicited when chewing, brushing teeth, lightly touching cheek. Described as a soreness, not a shooting pain. Patient denies any vision changes. Patient with history of headaches in the past, attributed to sinus disease. These were infrequent and not associated with any other symptoms. Never been on any migraine or headache medication in the past. Patient does have history of severe vertigo, notes occasional dizziness. Of note, patient has been on multiple different statins in the past, did not tolerate this secondary to side effects. Regarding neck pain, this has been a chronic issue for many years, notes some chronic left hand numbness. She has had an EMG at the [facility] and was told that she had numbness in her hand secondary to her neck but no interventions were done for her neck. She notes occasional right-handed numbness as well. Patient denies any bowel or bladder issues, no saddle anesthesia, no gait change. MRI of her cervical spine does show severe foraminal stenosis, but no central canal stenosis. REVIEW OF SYSTEMS GENERAL:No weight loss, malaise or fevers. HEENT:Negative for frequent or significant headaches, No changes in hearing or vision, no nose bleeds or other nasal problems NECK:Negative for lumps, goiter, pain and significant neck s (more content not included)...[facility]04-04-2023 Instructions* Patient Instructions* Jena Felix PA-C - 12/16/2022 10:42 AM EDT Preventative: Supplements noted below Consult to cerebrovascular MRA of the head and US of the neck Consult to spine for neck pain and degenerative changes on MRI (can go to [facility] for this) Laboratory studies Increase water to 60 ounces a day Follow up in three months Headache Preventive Treatment: Please keep in mind that it takes 4-6 weeks for the medication to start working well and 2-3 monthsat the appropriate dose before deciding if it will be useful or not. If it is not helping at all bythis time, then we will discuss other medications to try. Supplements may take 3-6 months until yousee full effect. Natural supplements: Magnesium Oxide 500 mg at bed Coenzyme Q10 300 mg in AM Vitamin B2- 200 mg twice a day Feverfew 50 mg twice a day Vitamins and herbs that show potential Magnesium: Magnesium (250 mg twice a day or 500 mg at bed) has a relaxant effect on smooth muscles such as blood vessels. Individuals suffering from frequent or daily headache usually have low magnesium levels which can be increase with daily supplementation of 400-750 mg. Three trials found 40-90%average headache reduction when used as a preventative. Magnesium also demonstrated the benefit in menstrually related migraine. Magnesium is part of the messenger system in the serotonin cascade andit is a good muscle relaxant. It is also useful for constipation which can be a side effect of other medications used to treat migraine. Good sources include nuts, whole grains, and tomatoes. Magnesium comes in many different forms: Magnesium glycinate is a good choice for those with a sensitive stomach who have gastrointestinal side effects such as diarrhea with other forms of magnesium. It is anecdotally also helpful with anxiety and sleep. Magnesium threonate also has low risk of gastrointestinal side effects and anecdotally helpful with cognitive function and brain fog symptoms. Magnesium malate has low gastrointestinal side effects and is reportedly more energizing and anecdotally often helpful in fibromyalgia and chronic fatigue syndrome. Magnesium citrate is one of the most studied, popular, and well-absorbed forms of magnesium. It can also be mixed easily with liquids if you can't take pills. However, it comes w ith a higher risk of diarrhea and gastrointestinal side effects, although this could be helpful forthose with constipation. Magnesium oxide is also well studied, cheap, and often used for heartburn and indigestion. However, it is not well absorbed and can have some laxative side effects as well, so can also be helpful for constipation. Riboflavin (vitamin B 2) 200 mg twice a day. This vitamin assists nerve cells in the production of ATP a principal energy storing molecule. It is necessary for many chemical reactions in the body. There have been at least 3 clinical trials of riboflavin using 400 mg per day all of which suggested that migraine frequency can be decreased. All 3 trials showed significant improvement in over half ofmigraine sufferers. The supplement is found in bread, cereal, milk, meat, and poultry. Most Americans get more riboflavin than the recommended daily allowance, however riboflavin deficiency is not necessary for the supplements to help prevent headache. Feverfew: Feverfew is a common garden herb [place] to [place] and popular in [place] as a treatment for disorders typically controlled by aspirin. The mechanism of action is unknown but is believed to be related to a chemical called parthenolide which helps the body use serotonin more effectively. Serotonin helps prevent migraine and assists with resolution when it occurs. Parthenolide also inhibits the release of histamine which is linked to pain and inflammation. Consistency of active ingredients in different products can be a problem. Some formulations don't have the active ingredient (parthenolide) that prevents migraine. A parthenolide content of 0.2% is generally recommended. Typical dosage is one capsule 3 times a day. Coenzyme Q10: This is present in almost all cells in the body and is critical component for the conversion of energy. Recent studies have shown that a nutritional supplement of CoQ10 can reduce the frequency of migraine attacks by improving the energy production of cells as with riboflavin. Doses of 150 mg twice a day have been shown to be effective. Melatonin: Increasing evidence shows correlation between melatonin secretion and headache conditions. Melatonin supplementation has decreased headache intensity and duration. It is widely used as a sleep aid. Sleep is natures way of dealing with migraine. A dose of 3 mg is recommended to start for headaches including cluster headache. Higher doses up to 15 mg has been reviewed for use in Cluster headache and have been used. The rationale behind using melatonin for cluster is that many theories regarding the cause of Cluster headache center around the disruption of the normal circadian rhythm in the brain. This helps restore the normal circadian rhythm. Yesi: Yesi has a small amount of antihistamine and anti-inflammatory action which may help headache. It is primarily used for nausea and may aid in the absorption of other medications. HEADACHE DIET: Foods and beverages which may trigger migraine Note that only 20% of headache patients are food sensitive. You will know if you are food sensitiveif you get a headache consistently 20 minutes to 2 hours after eating a certain food. Only cut out a food if it causes headaches, otherwise you might remove foods you enjoy! What matters most for diet is to eat a well balanced healthy diet full of vegetables and low fat protein, and to not miss meals. Chocolate, other sweets ALL cheeses except cottage and cream cheese Dairy products, yogurt, sour cream, ice cream Liver Meat extracts (Bovril, Marmite, meat tenderizers) Meats or fish which have undergone aging, fermenting, pickling or smoking. These include: Hotdogs,salami,Lox,sausage, mortadellas,smoked salmon, pepperoni, Pickled zuleta Pods of broad vu (Venezuelan beans, Cameroonian pea pods, Yakut (luh) beans, chacko and navy beans Ripe avocado, ripe banana Yeast extracts or active yeast preparations such as Espinoza's or Silas's (commercial bakes goodsare permitted) Tomato based foods, pizza (lasagna, etc.) MSG (monosodium glutamate) is disguised as many things; look for these common aliases: Monopotassium glutamate Autolysed yeast Hydrolysed protein Sodium caseinate flavorings all natural preservatives" Nutrasweet Avoid all other foods that convincingly provoke headaches. Headache Prevention Strategies: 1. Maintain a headache diary; learn to identify and avoid triggers. Common triggers include: Emotional triggers: Emotional/Upset family or friends Emotional/Upset occupation Business reversal/success Anticipation anxiety Crisis-serious Post-crisis periodNew job/position Physical triggers: Vacation Day Weekend Strenuous Exercise High Altitude Location New Move Menstrual Day Physical Illness Oversleep/Not enough sleep Weather changes Light: Photophobia or light sesnitivity treatment involves a balance between desensitization and reduction in overly strong input. Use dark polarized glasses outside, but not inside. Avoid bright or fluorescent light, but do not dim environment to the point that going into a normally lit room hurts. Consider FL- 41 tint lenses, which reduce the most irritating wavelengths without blocking too muchlight. These can be obtained at [employer].Referral.IM or [employer].Referral.IM Foods: see list above. 2. Limit use of acute treatments (asde-jsi-cnwpodx medications, triptans, etc.) to no more than 2 days per week or 10 days per month to prevent medication overuse headache (rebound headache). 3. Follow a regular schedule (including weekends and holidays): Don't skip meals. Eat a balanced diet. 8 hours of sleep nightly. Minimize stress. Exercise 30 minutes per day. Being overweight is associated with a 5 times increased risk of chronic migraine. Keep well hydrated and drink 6-8 glasses of water per day. 4. Initiate non-pharmacologic measures at the earliest onset of your headache. Rest and quiet environment. Relax and reduce stress. Kfcvevs4Rjpxh is a free cathy that can instruct you on some simple relaxtionand breathing techniques. Http://[employer] Program is a free website that provides teaching videos on relaxation. Also, there are many apps that can be downloaded for mindful relaxation. An cathy called YOGA NIDRA will help walk you through mindfulness. Cold compresses. 5. Don't wait!! Take the maximum allowable dosage of prescribed medication at the first sign of migraine. 6. Compliance: Take prescribed medication regularly as directed and at the first sign of a migraine. 7. Communicate: Call your physician when problems arise, especially if your headaches change, increase in frequency/severity, or become associated with neurological symptoms (weakness, numbness, slurred speech, etc.). 8. Headache/pain management therapies: Consider various complementary methods, including medication, behavioral therapy, psychological counselling, biofeedback, massage therapy, acupuncture, dry needling, and other modalities. Such measures may reduce the need for medications. Counseling for pain ma nagement, where patients learn to function and ignore/minimize their pain, seems to work very well. 9. Recommend changing family's attention and focus away from patient's headaches. Instead, emphasize daily activities. If first question of day is 'How are your headaches/Do you have a headache today?', then patient will constantly think about headaches, thus making them worse. Goal is to re-directattention away from headaches, toward daily activities and other distractions. 10. Helpful Websites: www.AmericanHeadacheSociety.org www.migrainetrust.org www.headaches.org www.migraine.org.uk www.achenet.org 11. HEADACHE EXPECTATIONS: There are many types of headaches, and only a rare few in which complete relief can be expected. Ingeneral, there is no cure for headache, especially migraine based headaches. There is nothing available that completely prevents headaches from occurring, breaking through, or having periodic flare-ups and fluctuations. Regardless of what you are using on a daily basis for prevention, episodic headaches should still be expected, and periods where frequency may escalate and fluctuate are unavoidable. There is no quick fix for most headaches. Furthermore, the longer you have had high frequency headaches (such as chronic daily headache), the longer it will likely take to expect any improvement. In fact, some people will never improve, regardless of how many medications or other treatments we try.Our treatment strategy is to evaluate for possible causes of your headache, although testing is usually always normal, even in cases of daily continuous headaches for years. Most types of headache such as migraine are electrical brain disorders (similar to how epilepsy is an electrical brain disorders). Therefore, there is no testing that will reveal this "dysfunctional electrical circuitry" suchon MRI, or other testing. We try to find a medication that may help lessen the frequency and/or severity of your headaches. The goal is not to completely stop them from happening, although if that happens, great! Different people respond to different medications, and some people just don't respond to anything, so it's usually a matter of trying different options. We can not predict if or when exac tly you will respond to a treatment that we provide. Preventive headache medications take 4-6 weeks to start working, and 2-3 months to see full effect,assuming you reach an effective dose. Therefore, calling or messaging frequently because you have aheadache flare prior to the 3 month dali is unlikely to change anything, and unfortunately there isnothing available that will expedite this, so please try to avoid this. Our recommendation will gene rally be to give it adequate time first. If you are unable to wait it out for medications to work, we can also try IV infusions for some temporary relief. O In general, the best that preventive medications or other treatments (including Botox) are able to offer in migraine management (variable in other headache types) is a 50% improvement in frequency and/or severity of headache. That is our goal, and any additional benefit is considered a bonus. Some people do significantly better than this, others do not get close to this. Therefore, if your headaches are not improving by at least 3 months on your preventive strategy, contact us and we can discuss further adjustments. Keep in mind that complete headache cure is not a realistic expectation. Our Team: The nursing staff, and medical assistants are a major part of YOUR TREATMENT TEAM and will be handling your phone calls, Synacort Messages and inquiries, if any. Unless explicitly told otherwise at the time of your office visit, your study results and ensuing treatment plans will be released via RealPage and discussed during your follow-up appointment. MyChart: Please ask the schedulers to give you an activation code. The main way of communication isby [employer]hart rather than phone lines, so if you have not signed up, please do so. RealPage is also theway that you can review your labs and testing. We are not able to contact everyone to tell them results are normal. If you do not hear back from us regarding testing you have had, it should be considered normal or within normal range. If you have any questions about the results, you are free to message us. RealPage is meant for simple questions regarding medications, possible side effects, or other simplestraight forward questions in limited sentences, rather than multiple paragraphs of discussion. RealPage is not meant for, or efficient for these complex questions, extensive questions, extensive medication adjustments, complex new symptoms or concerns. These issues beyond simple questions require afollow up visit with myself, one of our physician assistants, nurse practitioners, or a Virtual Visit via computer or smart phone, as detailed further down. Refills: Please pay attention to when your refills will need to be renewed. Due to the volume of phone callsdaily, this could potentially take a few days, although we certainly try to honor your refill requests as soon as we can. You should call at least 1 week in advance of needing a refill to ensure you do not run out of medication. Keep in mind that refill requests on Fridays may not be filled until the following week. In regards to blood work, testing, and radiology reports these are released automatically to the patients. We do not comment on most testing on [facility] in a message or commentary unless there is a concern. You will not receive a message from me of the result unless there is a specific concern of the result I need you to address further in care with us or your primary medical team. Make sure to check your my chart email or cathy. As an international referral center for syncope, autonomic dysfunction, general neurology, headachecare, neuromuscular disease, and other related conditions, seeing patients from across the world, we do not have the resource of time or staffing to address inquiries for accommodations. As such, we do not provide or complete requests for work accommodations, FMLA, disability, or other such forms. We recommend seeking guidance through your primary care provider for these requests. We are happy toprovide our office notes from your visits and other tests or evaluations performed through our clinic, which can be made available upon request to assist you with this process. documented in [facility] History of Present illness Narrative* Jena Felix PA-C - 12/16/2022 10:38 AM EDT ESTABLISHED PATIENT VISIT Last visit: 11/03/[address] Reza ASSESSMENT/PLAN: 1. Intractable acute post-traumatic headache - ICD9: 339.21, ICD10: G44.311 (primary diagnosis) 2. Cervicalgia - ICD9: 723.1, ICD10: M54.2 3. Medication overuse headache - ICD9: 339.3, ICD10: G44.40 4. Hypertension, unspecified type - ICD9: 401.9, ICD10: I10 Patient provides history of acute onset, droopy eye lids and neck pain following head trauma as above that she initially indicates was secondary to head trauma when she fell into a door jam. However,further history suggests she may have had such symptoms even prior to the fall. Difficult to assesswhether symptoms are truly acute or chronic and further exacerbated by trauma. Workup at [facility] was rep ortedly unremarkable. Pt does have history of chronic pain and is followed by pain mgmt. Currently with non-focal exam except for functional finding of splitting sensation on forehead. In addition tohistory of trauma, patient has other risk factors for worsening headache including taking possible medication overuse with pt on [place], Xanax, Lyrica as well as Ritalin. BP might also be a cause of headaches with pt reporting uncontrolled BPs at home. Given her age, the multiple meds she is on poseother risks as well, and I will not be adding more meds to her regimen at this time. To further evaluate for other etiologies of headache, will get MRI brain to determine if intracranial cause (I.e. slow SDH not seen on CT brain); MRV to evaluate for sinus thrombosis given history of clotting. For neck pain and decreased ROM, will get MRI C spine to evaluate for traumatic changes not seen on CT Cspine at OSH. Pt agrees with plan. Pt will follow up after imaging completed. Encouraged pt to follow up with PCP regarding BP and her physicians regarding polypharmacy. William Reza MD CHIEF COMPLAINT: FU imaging HISTORY OF PRESENT ILLNESS: Carol Ann Orellana is a 77 year old female, There were no vitals taken forthis visit. with a PMH significant for neuropathy, migraine, insomnia, HTN, pulmonary fibrosis, BPPV, breast cancer. Patient had MRI and MRV of the brain showing pontine stroke. 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 Possible medication overuse headache as well secondary to being on [place], Lyrica and Ritalin through pain management. Patient currently taking a daily aspirin. Has tried physical therapy for neck pain in the back without any benefit. Is been takingher pain medication every day for many years, has never had headaches like this in the past. Patient endorses chronic facial and left-sided head pain since she fell in June, no loss of consciousness at this time and no blood thinner use. Patient notes that her left cheekbone and right earare tender as well, also endorses history of fibromyalgia and is unsure if this is related. Patientalso notes she had multiple root canals, dentist has told her "she has extra nerves". Headache is primarily on the left side towards the front but will occasionally radiate towards the whole head. Not associated with any other symptoms including photophobia, phonophobia, nausea. She also endorses some neck pain, unsure if these are related. Has been to physical therapy many times without any signi ficant improvement, notes that this actually exacerbates her symptoms. Patient notes that her headache is worse when touching the forehead, but not elicited when chewing, brushing teeth, lightly touching cheek. Described as a soreness, not a shooting pain. Patient denies any vision changes. Patient with history of headaches in the past, attributed to sinus disease. These were infrequent and not associated with any other symptoms. Never been on any migraine or headache medication in the past. Patient does have history of severe vertigo, notes occasional dizziness. Of note, patient has been on multiple different statins in the past, did not tolerate this secondary to side effects. Regarding neck pain, this has been a chronic issue for many years, notes some chronic left hand numbness. She has had an EMG at the [facility] and was told that she had numbness in her hand secondary to her neck but no interventions were done for her neck. She notes occasional right-handed numbness as well. Patient denies any bowel or bladder issues, no saddle anesthesia, no gait change. MRI of her cervical spine does show severe foraminal stenosis, but no central canal stenosis. REVIEW OF SYSTEMS GENERAL:No weight loss, malaise or fevers. HEENT:Negative for frequent or significant headaches, No changes in hearing or vision, no nose bleeds or other nasal problems NECK:Negative for lumps, goiter, pain and significant neck swelling RESPIRATORY: Negative for cough, wheezing or shortness of breath. CARDIOVASCULAR: Negative for chest pain, leg swelling or palpitations. GASTROINTESTINAL: Negative for abdominal discomfort, blood in stools or black stools or change in bowel habits GENITOURINARY: No history of dysuria, frequency or incontinence MUSCULOSKELETAL: Negative for joint pain or swelling, back pain or muscle pain. NEUROLOGIC:Negative for focal numbness or weakness, headaches and dizziness or syncope, vision changes, speech/languag changes - EXCEPT that as per HPI above. SKIN:Negative for lesions, rash, and itching. PSYCHIATRIC: Negative for sleep disturbance, mood disorder and recent psychosocial stressors. HEMATOLOGIC/LYMPHATIC/IMMUNOLOGIC:Negative for prolonged bleeding, bruising easily or swollen nodes. ENDOCRINE: Negative for cold or heat intolerance, polyuria, polydipsia and goiter. The remainder of the ROS was reviewed and is negative. LAB/IMAGING: Those performed since patient's last visit have been reviewed. MRI Brain without, MRV brain, MRI cervical spine 12/02/22 IMPRESSION: Questionable focal restricted diffusion in the left ventral rocío could reflect acute microinfarct or artifact. No associated mass effect or edema. No evidence of other acute intracranial process. Chronic microvascular ischemic changes with remote lacunar and right PIPE SETTER territory infarct. Cervical spondylosis with high-grade foraminal stenoses at C5-C6. No significant cord compression. Normal signal and morphology of the cervical and visualized upper thoracic cord. No dural venous sinus thrombosis. MEDICATIONS: HYDROcodone-Acetaminophen (NORCO) 10-325 mg per tablet Take 1 tablet by mouth every 6 hours as needed for pain for up to 30 days. Do not start before December 11, 2022. pregabalin (LYRICA) 150 mg capsule Take 1 capsule by mouth three times daily for 30 days. Do not start before December 11, 2022. losartan (COZAAR) 50 mg tablet 50 mg twice daily. nebivolol (BYSTOLIC) 10 mg tablet Take 10 mg by mouth once daily. ondansetron orally disintegrating (ZOFRAN ODT) 4 mg disintegrating tablet Take 4 mg by mouth every 6 hours as needed. For Nausea ondansetron (ZOFRAN) 4 mg tablet TAKE 1 TABLET BY MOUTH EVERY 6 HOURS NEEDED FOR NAUSEA OR FOR VOMITING omeprazole (PRILOSEC) 20 mg capsule TAKE 1 CAPSULE BY MOUTH DAILY ON AN EMPTY STOMACH QVAR REDIHALER 80 mcg/actuation inhaler INHALE 2 PUFFS BY MOUTH and into the lungs TWICE DAILY aspirin, enteric coated (ASPIRIN, ENTERIC COATED) 81 mg EC tablet 81 mg. albuterol HFA (PROVENTIL HFA, VENTOLIN HFA) 90 mcg/actuation inhaler INHALE 2 PUFFS BY MOUTH and into the lungs FOUR TIMES DAILY NEEDED ALPRAZolam (XANAX) 1 mg tablet Take 1 mg by mouth three times daily. lidocaine-prilocaine (EMLA) 2.5-2.5 % cream 1-2 g as needed. furosemide (LASIX) 20 mg tablet Take 20 mg by mouth as needed. iron/vitamin B complex (GERITOL ORAL) Take by mouth. lidocaine-methyl lisa-menthol 5-10-3 % ktop lidocaine 5 % oint fluticasone (FLOVENT) 220 mcg/actuation inhaler flovent hfa 220 mcg/act aero methylphenidate (RITALIN) 20 mg tablet Take 20 mg by mouth twice daily. levothyroxine (SYNTHROID) 50 mcg tablet Take 50 mcg by mouth daily before breakfast. ergocalciferol 50,000 unit capsule (VITAMIN D2, DRISDOL) Take 50,000 Units by mouth once each week. meclizine (ANTIVERT) 25 mg tab Take 25 mg by mouth as needed. For dizziness hydrALAZINE (APRESOLINE) 10 mg tablet TAKE 1 TABLET BY MOUTH FOUR TIMES DAILY NEEDED IF SBP >160 FOR 30 DAYS lisinopril (ZESTRIL, PRINIVIL) 5 mg tablet Take 5 mg by mouth once daily. (Patient not taking: No sig reported) methylPREDNISolone (MEDROL DOSE-PACK) 4 mg Dose-Pack as directed. (Patient not taking: No sig reported) tiZANidine (ZANAFLEX) 4 mg tablet take ONE-HALF TABLET BY MOUTH AT BEDTIME FOR MUSCLE SPASMS (Patient not taking: Reported on 11/03/2022) lidocaine (LIDODERM) 5 % Apply 1 Patch as directed every 24 hours. nitrofurantoin macrocrystal (MACRODANTIN) 100 mg capsule TAKE 1 CAPSULE BY MOUTH TWICE DAILY for 7 (SEVEN) days (Patient not taking: No sig reported) furosemide (LASIX) 40 mg tablet 40 mg. rivaroxaban (XARELTO) 10 mg tablet Take 1 tablet by mouth once daily. (Patient not taking: Reportedon 11/03/2022) mv, min #36-iron,carbonyl-FA (GERITOL COMPLETE) 16 mg iron- 0.38 mg tab Geritol Complete 16 mg iron- 0.38 mg tablet famotidine (PEPCID) 20 mg tablet Take 20mg tab 1 hour prior to procedure (Patient not taking: No sig reported) predniSONE (DELTASONE) 20 mg tablet 40 mg po [id number] x3 doses, start 24 hours prior to test. 40mg po 1 hour prior to test (Patient not taking: Reported on 11/03/2022) tolterodine ER (DETROL LA) 4 mg 24 hr capsule Take 1 capsule by mouth once daily. phenazopyridine (PYRIDIUM) 200 mg tablet Take 1 tablet by mouth three times daily as needed. (Patient not taking: No sig reported) estradiol (ESTRACE) 0.01 % (0.1 mg/gram) vaginal cream use one gram VAGINALLY three times per week (Patient not taking: Reported on 12/16/2022) HISTORIES PAST MEDICAL HISTORY Diagnosis Date Bladder infection Breast cancer (HCC) GERD (gastroesophageal reflux disease) Kidney stones Leg pain Migraines Neurogenic bladder Osteoarthrosis, unspecified whether generalized or localized, other specified sites Osteoporosis Other and unspecified disc disorder of unspecified region Intervertebral disc disorders DIAMOND (stress urinary incontinence, female) Thyroid disease Urethral hypermobility Urge incontinence Urgency of urination FAMILY HISTORY Problem Relation Age of Onset Diabetes Mother Stroke Mother Hypertension Mother Heart Father Hypertension Father Heart disease Brother Diabetes Brother SOCIAL HISTORY Social History Tobacco Use Smoking status: Former Years: 15.00 Types: Cigarettes Quit date: 1982 Years since quittin.2 Smokeless tobacco: Never Substance Use Topics Alcohol use: No Drug use: No PHYSICAL EXAMINATION BP 129/72 Pulse 60 Temp 36.6 C (97.9 F) Resp 16 Wt 60.2 kg (132 lb 11.2 oz) SpO2 97% BMI 25.07 kg/m GENERAL EXAM: General appearance: NAD, pleasant. HEENT: NC/AT, nasal congestion absent, no oral lesions, membranes moist. NECK: No masses, supple. Lungs: Breathing comfortably Extr: Moves all extremities without difficulty Skin: Cool to touch. No rash. NEUROLOGICAL EXAM: General: Awake, alert, oriented x3 (person,place,time), speech fluent, no dysarthria; comprehension, naming, repetition intact. Short and intermediate designer memory intact. CN: PERRL, EOMI and without nystagmus, VFF to confrontation, facial sensation and strength are normal and symmetric (other than chronic left eye lid droop), hearing is intact to finger rub bilaterally, palate and tongue movements are intact and symmetric. SCM and trapezius strength normal. Motor: Normal tone, bulk and strength (5/5) bilaterally (throughout extremities x4). Reflexes: 2/4 and symmetric, negative denis Coordination: No tremors. Sensation: LT No evidence of neglect. Gait: Narrow based and stable with normal stride and arm swing. Assessment and Plan: ASSESSMENT/PLAN: 1. Intractable acute post-traumatic headache - ICD9: 339.21, ICD10: G44.311 (primary diagnosis) 2. Foraminal stenosis of cervical region - ICD9: 723.0, ICD10: M48.02 3. Lacunar infarction (HCC) - ICD9: 434.91, ICD10: I63.81 4. Neck pain - ICD9: 723.1, ICD10: M54.2 5. New daily persistent headache - ICD9: 339.42, ICD10: G44.52 6. Cerebrovascular accident (CVA), unspecified mechanism (HCC) - ICD9: 434.91, ICD10: I63.9 7. Prediabetes - ICD9: 790.29, ICD10: R73.03 8. Cervicalgia - ICD9: 723.1, ICD10: M54.2 9. Medication overuse headache - ICD9: 339.3, ICD10: G44.40 Patient with persistent daily headache since fall in June. MRI of the brain did show lacunar infarct in the rocío, patient with strict blood pressure management through primary care. No recent lipid panel or A1c, these were ordered as well as MRI of the head and ultrasound of the carotids bilaterally. Patient was referred to cerebrovascular for further evaluation of stroke and stroke management. Patient currently taking a daily aspirin, instructed continue this therapy until she sees cerebrovascular. Patient also with severe foraminal stenosis on cervical MRI, history of chronic neck pain for many years and has tried and failed physical therapy. Patient currently followed through the [facility] for her low back and would like to consult them for her neck as well. Did put in for consult for neurosurgeon [facility] in case patient changes her mind. Patient without any signs or symptoms of cord compression at this time including bowel or bladder incontinence, saddle anesthesia, hyperreflexia, patient with negative Kathy sign, or any other abnormality. Did offer repeat physical therapy, patient deferred at this time but did tell her consult was placed should she change her mind. Regarding headache, patient with multiple risk factors for headache including recent trauma in June 2022, multiple medications that may contribute to medication overuse headache. Discussed these risk factors, patient states that she has talk with pain management and notes that she has not had a headache even though she has been on this regimen for a long time. Does not want to stop her currentmedication and pain management regimen. Did discuss adding supplements including magnesium, B2 and co-Q10 on to her regiment to prevent and treat further headaches. Patient would like to try these aswell, common side effects were discussed and information was given to patient. Patient agreeable to treatment plan of care at this time, all questions were answered. Discussed red flag signs and symptoms that would warrant emergent evaluation emergency department, patient agrees and understands. Patient to follow-up in 3 months or sooner should any symptoms change or worsen. Jena Felix PA-C I spent a total of 25 minutes on the date of the service which included preparing to see the patient, [id number] patient care, completing clinical documentation, obtaining and/or reviewing separately obtained history, performing a medically appropriate examination, counseling and educating the pat ient/family/caregiver, and ordering medications, tests, or procedures. This document has been created with the use of voice recognition technology. It may contain inaccuracies: (e.g. misspellings, inaccurate syntax or word sense) that have escaped review. documented in this encounterSumma Health03-21-2023 NoteHNO ID: [id number] Author: PURA Martin) Service: ? Author Type: Technologist Type: Progress Notes Filed: 12/02/2022 9:41 AM Note Text: Radiology Service Progress Note PATIENT NAME: Carol Ann Orellana DATE OF SERVICE: December 02, 2022 TIME: 9:40 AM PATIENT IDENTITY VERIFICATION COMPLETED USING TWO (2) IDENTIFIERS: Name and Date of confirmed by patient verbally. FALL SCREENING: Has the patient had 2 falls in the last year or 1 fall with injury or currently using an Ambulatory Assistive Device (Walker, Cane, Wheelchair, Crutches, etc.)? No PATIENT GENDER DATA: Female. status: : No status: NO. PATIENT RELEVANT IMPLANT DATA REVIEWED: Yes RADIOLOGY DEPARTMENT: MR; Exam(s) Completed: Head: Routine Brain Sagittal Sinus MRV Spine: Cervical spine PERIPHERAL IV DATA: Not applicable SIGNED BY: RT Veronica(Norma) December 02, 2022 9:40 [facility]03-16-2023 History of Present illness Narrative* Zoila Valiente APRN.NUCLEAR FUEL PROCESSING TECHNICIAN - 11/27/2022 2:15 PM EDT This video visit was performed via [employer] video visit. Patient consented to receive health care services via virtual visit for this encounter Provider Location: [facility] Patient Location: Patient Home or Place of Residence I have communicated my name and active licensure. The patient's identity and physical location wereverified at the time of this visit. Either the patient or their legal workforce services representative has been informed of the risks and benefits of -- and alternatives to -- treatment through a remote evaluation andconsents to proceed with the evaluation remotely. Chief Complaint: Pain History of Present Illness: Carol Ann Orellana is a 77 year old year old female being seen at [facility] for a evaluation and/or management of her chronic pain. The patient was last seen virtually on 10/30/2022. She states that since the last visit symptoms have been worsening in her back. Reviewed XR's of CS, LS and shoulders with degenerative changes throughout. Her medical history has not changed and she denies any hospital stays or ER visits. Pain Location: lower back -mid back, right leg pain, left shoulder, neck Radiation: arms and legs Character: aching Intensity: 5-6/10 Numbness/tingling: legs Burning: occasionally feet Weakness: arms Falls: a few toe Worsening factors: physical activity and cold weather Relieving factors: rest and medication Patient denies any bowel or bladder dysfunction. The patient is currently prescribed [place], lyrica and lidocaine cream from our office. The last dose of [place] were taken today. The medications are partially effective. PDMP website checked and validated. OARRS report reviewed by Zoila Valiente APRN.CNP and is consistent with the patients medical history and medication intake. Last Opioid agreement effective date: 10/03/2022 Pain Panel: Reviewed - No inconsistencies noted. Urine Panel: Lab Results Component Value Date Cannabinoid Quant, Urine <16 11/07/2022 Benzoylecgonine Quant, Urine <24 11/07/2022 6-Acetylmorphine Quant, Urine <5 11/07/2022 Amphetamine Quant, Urine <5 11/07/2022 Methamphetamine Quant, Urine <8 11/07/2022 Buprenorphine Quant, Urine <20 11/07/2022 Norbuprenorphine Quant, Urine <20 11/07/2022 Methadone Quant, Urine <16 11/07/2022 EDDP Quant, Urine <6 11/07/2022 Tramadol Quant, Urine <25 11/07/2022 Desmethyltramadol Quant, Urine <20 11/07/2022 Fentanyl Quant, Urine <6 11/07/2022 Norfentanyl Quant, Urine <6 11/07/2022 Codeine Quant, Urine <11 11/07/2022 Morphine Quant, Urine <10 11/07/2022 Dihydrocodeine Quant, Urine 577 (H) 11/07/2022 Hydrocodone Quant, Urine 3,002 (H) 11/07/2022 Oxycodone Quant, Urine <10 11/07/2022 Hydromorphone Quant, Urine 434 (H) 11/07/2022 Oxymorphone Quant, Urine <5 11/07/2022 Chronic Pain Functional Assessment Tools Pain Disability Index: Pain Disability Index 10/23/2022 11/24/2022 Family/Home Responsibilities 5 0 No Disability Recreation 6 5 Social Activity 5 4 Occupation 0 No disability 0 No disability Sexual Behavior 0 No disability 0 No disability Self Care 0 No disability 0 No disability Life Support Activity 5 0 No disability PDI Score 21 9 Pain Enjoyment of Life and General Activity Scale (0-10): PEG: A Three-Item Scale Assessing Pain Intensity and Interference What number best describes your pain on average in the past week?: 6 (11/24/2022 7:32 PM) What number best describes how, during the past week, pain has interfered with your enjoyment of life?: 7 (11/24/2022 7:32 PM) What number best describes how, during the past week, pain has interfered with your general activity?: 7 (11/24/2022 7:32 PM) REVIEW OF SYSTEMS: GENERAL: No weight loss or fevers RESPIRATORY: Negative for cough CARDIOVASCULAR: Negative for chest pain GI: No nausea, vomiting, or diarrhea. MUSCULOSKELETAL: back pain and muscle pain PAST MEDICAL HISTORY Diagnosis Date Bladder infection Breast cancer (HCC) GERD (gastroesophageal reflux disease) Kidney stones Leg pain Migraines Neurogenic bladder Osteoarthrosis, unspecified whether generalized or localized, other specified sites Osteoporosis Other and unspecified disc disorder of unspecified region Intervertebral disc disorders DIAMOND (stress urinary incontinence, female) Thyroid disease Urethral hypermobility Urge incontinence Urgency of urination PAST SURGICAL HISTORY Procedure Laterality Date ANESTHESIA TOTAL KNEE REPLACEMENT APPENDECTOMY 08/1961 ARTHROTOMY KNEE W/SYNOVIAL BIOPSY ONLY Semilunar cartilage, knee - right BACK SURGERY HX 2011 BLADDER SURGERY HX 2012 BREAST SURGERY HX Right 2018 breast and 3 lymph nodes removed CARPAL TUNNEL Left 12/1979 CATARACT EXTRACTION HX CATARACT EXTRACTION HX 2009 CHOLECYSTECTOMY ELBOW SURGERY HX Left 1994 EXPLORATORY LAPAROTOMY CELIOTOMY W/WO BIOPSY SPX Laparotomy, exp - lysis of adhesions HAND SURGERY HX Right 1989 KNEE SURGERY HX Right removal of meniscus LX EXCISION OF BLADDER TUMOR 1979, 1983 OOPHORECTOMY PARTIAL/TOTAL UNI/BI Oophorectomy TOTAL ABDOMINAL HYSTERECT W/WO RMVL TUBE OVARY Hysterectomy, TOTAL KNEE REPLACEMENT 2009 FAMILY HISTORY Problem Relation Age of Onset Diabetes Mother Stroke Mother Hypertension Mother Heart Father Hypertension Father Heart disease Brother Diabetes Brother Social History Tobacco Use Smoking status: Former Years: 15.00 Types: Cigarettes Quit date: 1982 Years since quittin.2 Smokeless tobacco: Never Substance Use Topics Alcohol use: No Drug use: No Allergies: Oxycodone-Acetamino* Other: See Comments Cortisone Doxycycline Unknown Iv Dye [Iodinated C* Rash Montelukast Unknown, Rash Oxycodone Unknown Sulfa (Sulfonamide * Latex Rash Current Outpatient Medications Medication Sig losartan (COZAAR) 50 mg tablet 50 mg twice daily. HYDROcodone-Acetaminophen (NORCO) 10-325 mg per tablet Take 1 tablet by mouth every 6 hours as needed for pain for up to 30 days. Do not start before November 11, 2022. pregabalin (LYRICA) 150 mg capsule Take 1 capsule by mouth three times daily for 30 days. Do not start before November 10, 2022. hydrALAZINE (APRESOLINE) 10 mg tablet TAKE 1 TABLET BY MOUTH FOUR TIMES DAILY NEEDED IF SBP >160 FOR 30 DAYS nebivolol (BYSTOLIC) 10 mg tablet Take 10 mg by mouth once daily. lisinopril (ZESTRIL, PRINIVIL) 5 mg tablet Take 5 mg by mouth once daily. (Patient not taking: No sig reported) methylPREDNISolone (MEDROL DOSE-PACK) 4 mg Dose-Pack as directed. (Patient not taking: No sig reported) tiZANidine (ZANAFLEX) 4 mg tablet take ONE-HALF TABLET BY MOUTH AT BEDTIME FOR MUSCLE SPASMS (Patient not taking: Reported on 11/03/2022) ondansetron orally disintegrating (ZOFRAN ODT) 4 mg disintegrating tablet Take 4 mg by mouth every 6 hours as needed. For Nausea lidocaine (LIDODERM) 5 % Apply 1 Patch as directed every 24 hours. nitrofurantoin macrocrystal (MACRODANTIN) 100 mg capsule TAKE 1 CAPSULE BY MOUTH TWICE DAILY for 7 (SEVEN) days (Patient not taking: No sig reported) ondansetron (ZOFRAN) 4 mg tablet TAKE 1 TABLET BY MOUTH EVERY 6 HOURS NEEDED FOR NAUSEA OR FOR VOMITING omeprazole (PRILOSEC) 20 mg capsule TAKE 1 CAPSULE BY MOUTH DAILY ON AN EMPTY STOMACH QVAR REDIHALER 80 mcg/actuation inhaler INHALE 2 PUFFS BY MOUTH and into the lungs TWICE DAILY aspirin, enteric coated (ASPIRIN, ENTERIC COATED) 81 mg EC tablet 81 mg. albuterol HFA (PROVENTIL HFA, VENTOLIN HFA) 90 mcg/actuation inhaler INHALE 2 PUFFS BY MOUTH and into the lungs FOUR TIMES DAILY NEEDED furosemide (LASIX) 40 mg tablet 40 mg. ALPRAZolam (XANAX) 1 mg tablet Take 1 mg by mouth three times daily. rivaroxaban (XARELTO) 10 mg tablet Take 1 tablet by mouth once daily. (Patient not taking: Reportedon 11/03/2022) mv, min #36-iron,carbonyl-FA (GERITOL COMPLETE) 16 mg iron- 0.38 mg tab Geritol Complete 16 mg iron- 0.38 mg tablet lidocaine-prilocaine (EMLA) 2.5-2.5 % cream 1-2 g as needed. furosemide (LASIX) 20 mg tablet Take 20 mg by mouth as needed. famotidine (PEPCID) 20 mg tablet Take 20mg tab 1 hour prior to procedure (Patient not taking: No sig reported) predniSONE (DELTASONE) 20 mg tablet 40 mg po [id number] x3 doses, start 24 hours prior to test. 40mg po 1 hour prior to test (Patient not taking: Reported on 11/03/2022) iron/vitamin B complex (GERITOL ORAL) Take by mouth. tolterodine ER (DETROL LA) 4 mg 24 hr capsule Take 1 capsule by mouth once daily. phenazopyridine (PYRIDIUM) 200 mg tablet Take 1 tablet by mouth three times daily as needed. (Patient not taking: No sig reported) lidocaine-methyl lisa-menthol 5-10-3 % ktop lidocaine 5 % oint fluticasone (FLOVENT) 220 mcg/actuation inhaler flovent hfa 220 mcg/act aero estradiol (ESTRACE) 0.01 % (0.1 mg/gram) vaginal cream use one gram VAGINALLY three times per week methylphenidate (RITALIN) 20 mg tablet Take 20 mg by mouth twice daily. levothyroxine (SYNTHROID) 50 mcg tablet Take 50 mcg by mouth daily before breakfast. ergocalciferol 50,000 unit capsule (VITAMIN D2, DRISDOL) Take 50,000 Units by mouth once each week. meclizine (ANTIVERT) 25 mg tab Take 25 mg by mouth as needed. For dizziness No current facility-administered medications for this visit. PHYSICAL EXAMINATION: VIDEO EXAM: (performed via video enabled technology) GENERAL: alert and appropriate, in no distress and well-hydrated, well nourished HEAD: normocephalic, no abnormality or lesion noted RESPIRATORY: breathing non-labored NEUROLOGIC: no obvious deficit ASSESSMENT: Patient is stable. Chronic pain is persistent. Medications are helping Carol Ann Orellana to have an improved quality of life. Patient compliance with Opioid Contract: patient is compliant Encounter Diagnosis ICD-10-CM 1. Other chronic pain G89.29 2. Lumbar radiculopathy M54.16 3. 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 Neck pain M54.2 PLAN: The patient understands the goal of our treatment is a reduction in pain and/or an improved level of functioning with activities of daily living. If at any time the patient does not feel the medications are helping them to achieve these goals, the medications may be discontinued. The patient reports a reduction in pain and/or an improved level of functioning with activities of daily living, denies any significant adverse effects, is compliant with the pain management agreement and there are no signs of medication misuse, abuse or diversion; therefore, the medications will be continued. Continue [place] Continue Lyrica Patient will call to schedule RFA when she is ready. Pt is declining procedures at this time Continue Lidocaine ointment Continue Lidocaine patches Continue OTC stool softeners and Colace Continue LB brace Continue care with specialists F/U in 1 month Zoila Valiente APRN.SOPHIA documented in this encounterSumma Health03-16-2023 Instructions* Patient Instructions* Zoila Valiente APRN.CNP - 11/27/2022 1:16 PM EDT Continue [place] Continue Lyrica Patient will call to schedule RFA when she is ready. Pt is declining procedures at this time Continue Diclofenac gel and Lidocaine ointment Continue Lidocaine patches Continue OTC stool softeners and Colace Continue LB brace Continue care with specialists F/U in 1 month documented in this encounterSumma Health03-09-2023 NoteHNO ID: [id number] Author: Priyank Yates MD Service: ? Author Type: Physician Type: Progress Notes Filed: 12/29/2022 7:46 AM Note Text: Priyank Yates MD Department of Orthopaedics Orthopaedics [address] [facility] [address] Dept: [phone] Dept November 20, 2022 CHIEF COMPLAINT: New and Pain of the Left Wrist HPI Pt with left wrist numbness since March after having blood drawn form the underside of her wrist. Pt denies pain, but has burnt her hand d/t the numbness. Numbness stops at the wrist. Pt is right hand dominant. Patient presents with: Left Wrist - New, Pain AMB ROOMING INTAKE FLOWSHEET DATA Pain Pain Level: 3 Pain Location: Hand-Left Description: Numbness, Tingling Duration Amount of Time: 9 Duration Units: Months Frequency: Continuous Comments: pain medication ASSESSMENT: R20.0, R20.2 Numbness and tingling in left hand (primary encounter diagnosis) PLAN: A bit of an odd presentation but I think we should get a nerve conduction exam to review. I have a suspicion she is having ulnar neuropathy but nerve testing will help FOLLOW UP INSTRUCTIONS: We will see her after her EMG. Ms. Carol Ann Orellana was advised as to contrast therapies and/or to take analgesics/anti-inflammatories as needed and all contraindications were reviewed. OBJECTIVE: Ms. Carol Ann Orellana is a pleasant 77 year old in no apparent distress. Gen:There were no vitals taken for this visit. nl development, non obese, no deformities ENT: Normocephalic, normal hearing, moist mucosa CV: Pulses:Radial= 2+ and symmetric, capillary refill < 2 secs, no peripheral edema/varicosities Skin: no rash, bruising or lesions. Good turgor. Psych: cooperative and appropriate, alert and oriented x 3, good mood and affect. Musculoskeletal: Cervical spine has mild limitations with range of motion and no tenderness to palpation, Spurling's sign negative. Shoulders and elbows have full range of motion. Positive Tinel's over the cubital tunnel, no subluxation of ulnar nerve at the elbow with flexion. Negative Tinel's over Guyon's canal. Inspection reveals no thenar atrophy. Intact sensation to light touch in the radial 3 digits. Sensation diminished in the ulnar 2 digits with out intrinsic atrophy, with positive weakness/Froment's. Negative Tinel's at the wrist, negative carpal tunnel compression testing on the left. No locking or catching of the digits. No tenderness to palpation or masses noted in the forearm or hand. IMAGING: IMPRESSION: Cervical spondylosis. 1.5 mm retrolisthesis at C4-5 which results in neutral and flexion positions. Security Shift Supervisor: [facility] Transcribe Date/Time: Nov 11 2022 12:29P Dictated by : DALI GABRIEL MD This examination was interpreted and the report reviewed and electronically signed by: DALI GABRIEL MD on Nov 11 2022 12:31PM EST Results-Findings * * *Final Report* * * DATE OF EXAM: Nov 07 2022 2:03PM [id number] - XR CERVICAL 4V AP/LAT/FLX/EXT / PROCEDURE REASON: Neck pain * * * * Physician Interpretation * * * * Cervical spine: History: Neck pain Findings: AP, neutral lateral, and flexion/extension lateral views were performed. Mild narrowing C4-5 and C6-7 disc spaces. Moderate narrowing C5-6 disc space Mid and lower cervical unco-vertebral joint space narrowing and spurring. With extension there is 1.5 mm retrolisthesis C4-5 level. Alignment otherwise anatomic. Supporting Subjective Information Below: Past Medical History: PAST MEDICAL HISTORY Diagnosis Date Bladder infection Breast cancer (HCC) GERD (gastroesophageal reflux disease) Kidney stones Leg pain Migraines Neurogenic bladder Osteoarthrosis, unspecified whether generalized or localized, other specified sites Osteoporosis Other and unspecified disc disorder of unspecified region Intervertebral disc disorders DIAMOND (stress urinary incontinence, female) Thyroid disease Urethral hypermobility Urge incontinence Urgency of urination Past Surgical History: PAST SURGICAL HISTORY Procedure Laterality Date ANESTHESIA TOTAL KNEE REPLACEMENT APPENDECTOMY 08/1961 ARTHROTOMY KNEE W/SYNOVIAL BIOPSY ONLY Semilunar cartilage, knee - right BACK SURGERY HX 2010 BLADDER SURGERY HX 2012 BREAST SURGERY HX Right 2018 breast and 3 lymph nodes removed CARPAL TUNNEL Left 12/1979 CATARACT EXTRACTION HX CATARACT EXTRACTION HX 2009 CHOLECYSTECTOMY ELBOW SURGERY HX Left 1994 EXPLORATORY LAPAROTOMY CELIOTOMY W/WO BIOPSY SPX Laparotomy, exp - lysis of adhesions HAND SURGERY HX Right 1989 KNEE SURGERY HX Right removal of meniscus LX EXCISION OF BLADDER TUMOR 1979, 1983 OOPHORECTOMY PARTIAL/TOTAL UNI/BI Oophorectomy TOTAL ABDOMINAL HYSTERECT W/WO RMVL TUBE OVARY Hysterectomy, TOTAL KNEE REPLACEMENT 2009 Family History: FAMILY HISTORY Problem Relation Age of Onset Diabetes Mother Stroke Mothe (more content not included)...[facility]03-06-[address] Fortune [facility] November 18, 2022 12:25am Note Date/Time November 17, 2022 9:16 pm [facility] Medical Records Department [address] [place] [address] Emergency Department Summary 11/17/22 MR#: [id number] Acct: [id number] Name: CAROL ANN ORELLANA Rep #:[id number] 2 : 1945 77 From: Devi Fortune MD PCP: Dr. Ricardo Ruiz, DO Status:REG E R Location: ED HPI History of Present Illness Chief Complaint: Shortness of Breath Detail of Chief Complaint: Burning in chest, fluctuating blood pressure Informant: patient Narrative Narrative: Patient presents secondary to burning sensation in her chest that has been present since 2 PM this afternoon. She states that she has been having trouble keeping her blood pressure under control. She had to take extra hydralazine today. Around 2 PM she noted a burning sensation in her chest and she feels very weak. [facility] Medical History Arthritis Asthma Bilateral cataracts Breast cancer Bronchiectasis Chronic pain COPD (chronic obstructive pulmonary disease) Difficulty balancing DVT (deep venous thrombosis) Former smoker Generalized weakness GERD (gastroesophageal reflux disease) history of blood clot Hypertension Infection of kidney Kidney stones Knee pain Limb weakness Limb weakness Lymphedema Mass of right chest wall Migraines CISCO (obstructive sleep apnea) Osteoporosis Pneumonia Pulmonary embolism Pulmonary fibrosis Severe sepsis Shortness of breath Shoulder pain Spinal stenosis Thyroid disease Tumor of bladder neck Urinary retention UTI (urinary tract infection) Vitamin D deficiency Home Medications levothyroxine 50 mcg tablet 50 mcg PO DAILY 12/19/13 [History Last Taken 06/08/17] alprazolam 1 mg tablet 1 mg PO TID PRN PRN Anxiety 02/16/17 [History Last Taken 03/22/21 23:00] lidocaine 5 % topical ointment 35 g topical TID PRN Pain 03/11/18 [History Last Taken Unknown] cholecalciferol (vitamin D3) 25 mcg (1,000 unit) capsule 1,000 unit PO DAILY Check with primary doctor 04/12/19 [History Last Taken Unknown] fluticasone propionate 44 mcg/actuation HFA aerosol inhaler (Flovent HFA) 1 inh inhalation BID Check with primary doctor 04/12/19 [History Last Taken Unknown] hydrocodone 10 mg-acetaminophen 325 mg tablet 1 tab PO TID PRN Pain 03/24/21 [History Last Taken 06/16/22 22:00] ondansetron HCl 4 mg tablet (Zofran) 4 mg PO Q8H PRN nausea and vomiting #20 tabs 03/25/21 [Rx Last Taken Unknown] methylphenidate HCl 20 mg tablet 20 mg PO BID 02/14/22 [History Last Taken Unknown] nebivolol 5 mg tablet (Bystolic) 5 mg PO DAILY Check with primary doctor 02/14/22 [History Last Taken Unknown] omeprazole 20 mg capsule,delayed release 20 mg PO DAILY Check with primary doctor 02/14/22 [History Last Taken Unknown] pregabalin 150 mg capsule 150 mg PO TID Pain 02/14/22 [History Last Taken Unknown] tolterodine 4 mg capsule,extended release 24 hr 4 mg PO DAILY Check with primarydoctor 02/14/22 [History Last Taken Unknown] albuterol sulfate 90 mcg/actuation aerosol inhaler 2 inh inhalation PRN PRN Shortness Of Breath 02/17/22 [History Last Taken Unknown] beclomethasone dipropionate 80 mcg/actuation HFA breath activated aerosol 2 inh inhalation BID Check with primary doctor 02/17/22 [History Last Taken Unknown] ondansetron 4 mg disintegrating tablet 4 mg PO Q6H PRN nausea and vomiting #10 tabs 06/17/22 [Rx Last Taken Unknown] cephalexin 500 mg capsule 500 mg PO Q6 #28 CAPSULES 08/28/22 [Rx Last Taken Unknown] lisinopril 5 mg tablet 5 mg PO DAILY #30 tabs 08/28/22 [Rx Last Taken Unknown] Allergy/AdvReac Type Severity Reaction Status Date / Time latex Allergy Mild Rash Verified 08/29/22 22:22 doxycycline Allergy Unknown weakness Verified 08/29/22 22:22 montelukast Allergy Unknown Rash Verified 08/29/22 22:22 Sulfa (Sulfonamide Allergy Hives Verified 08/29/22 22:22 Antibiotics) oxycodone [From Percocet] AdvReac Other Verified 08/29/22 22:22 Family History Mother Cancer gastric cancer at 93 Father Emphysema lung Heart disease Brother Heart disease Diabetes Surgical History H/O elbow surgery H/O knee surgery H/O right mastectomy History of appendectomy History of bladder suspension procedure History of cardiac catheterization History of cholecystectomy History of excision of mass History of hand surgery History of hysterectomy with bilateral oophorectomy History of spinal fusion Social History household members: spouse and other details: raising her great grandson current occupational status: retired Smoking Status: Former smoker quit date: 09/14/82 Tobacco: How many years used: 15 how long ago did patient quit smoking: smoked less than a pack per week for 15 years alcohol intake: never ROS ROS ED Constitutional Constitutional ED: Denies chills or fever(s) Eyes Eyes: Denies change in vision or discharge from eye(s) ENT ENT ED: Denies discharge from eye(s), rhinorrhea or sore throat Cardiovascular Cardiovascular: Reports chest pain; Denies palpitations Respiratory/Chest Respiratory/Chest: Reports dyspnea; Denies cough Gastrointestinal Gastrointestinal: Denies abdominal pain, diarrhea, nausea or vomiting Genitourinary Genitourinary ED: Denies difficulty urinating or dysuria Musculoskeletal Musculoskeletal: Denies back pain or extremity pain Integumentary Denies Abrasions or rash Neurologic Neurologic: Reports headache(s) and weakness Psychiatric Psychiatric: Denies anxiety or depression Allergic/Immunologic Allergic/Immunologic ED: Denies lip swelling or urticaria EXAM Physical Exam Const Vital Signs: 11/17/22 20:10 11/17/22 20:16 11/17/22 21:44 Temperature 97.5 F L 97.5 F L 98.2 F Temperature Source Oral Oral Temporal Pulse Rate 70 70 59 L Respiratory Rate 18 18 17 Respiratory Effort Blood Pressure 163/72 H 163/72 H 153/67 H Blood Pressure Mean 102 102 95 Pulse Ox 98 98 98 Oxygen Delivery Method Room Air Room Air Room Air 11/17/22 21:44 11/17/22 21:44 11/17/22 21:49 Temperature Temperature Source Pulse Rate Respiratory Rate Respiratory Effort Short of Breath Blood Pressure Blood Pressure Mean Pulse Ox 99 Oxygen Delivery Method Room Air Room Air Room Air 11/17/22 23:50 11/17/22 23:50 Temperature 98.2 F Temperature Source Temporal Pulse Rate 80 Respiratory Rate 15 Respiratory Effort Blood Pressure 134/74 H Blood Pressure Mean 94 Pulse Ox 97 98 Oxygen Delivery Method Room Air Room Air Positive well nourished and well developed General Appearance ED: well developed HEENT Reports normocephalic and head/scalp atraumatic Eyes PERRL and EOMs intact bilaterally Neck supple Chest Wall inspection of chest normal and palpation of chest normal Resp normal respiratory effort and clear to auscultation bilaterally Cardio regular rate and regular rhythm GI normal to inspection, nondistended, normoactive bowel sounds Palpation: soft Extremity normal to inspection Neuro oriented x3 and no sensory deficits noted Sensorium / Orientation: alert Motor Exam: strength 5/5 throughout Psych mental status grossly normal Skin no rashes or lesions noted MDM MDM MDM Narrative Medical decision making narrative: Patient is given Protonix along with a GI cocktail. She was given Tylenol for headache. Patient is placed on hall monitor. EKG obtained to evaluate for cardiac ischemia/arrhythmia. Lab work obtained to evaluate for leukocytosis, anemia, electrolyte derangement. Troponin obtained x2 to evaluate for cardiac ischemia. D-dimer obtained to evaluate for possible DVT. Lab Data Attestation: I reviewed the patient's lab results. Labs: Laboratory Results - last 24 hr 11/17/22 11/17/22 11/17/22 20:30 20:30 21:58 WBC 4.0 L RBC 3.51 L Hgb 10.4 L Hct 30.2 L MCV 86.0 MCH 29.6 MCHC 34.4 RDW Std Deviation 38.5 RDW Coeff of Mahi 12.2 Plt Count 187 MPV 9.1 Immature Gran % (Auto) 0.200 Neut % (Auto) 60.6 Lymph % (Auto) 25.6 Hitchcock % (Auto) 7.2 Eos % (Auto) 5.2 H Baso % (Auto) 1.2 H Absolute Neuts (auto) 2.4 Absolute Lymphs (auto) 1.03 Nucleated RBC % 0 D-Dimer Quant (PE/DVT) 0.88 H* Sodium 128 L Potassium 3.8 Chloride 94 L Carbon Dioxide 27.0 Anion Gap 7 BUN 7 Creatinine 0.70 Estim Creat Clear Calc 32.77 Est GFR (MDRD) Af Amer 104 Est GFR (MDRD) Non-Af 86 BUN/Creatinine Ratio 10.0 Glucose 108 H Calcium 9.1 Troponin I High Sens 46 11/17/22 21:58 WBC RBC Hgb Hct MCV MCH MCHC RDW Std Deviation RDW Coeff of Mahi Plt Count MPV Immature Gran % (Auto) Neut % (Auto) Lymph % (Auto) Hitchcock % (Auto) Eos % (Auto) Baso % (Auto) Absolute Neuts (auto) Absolute Lymphs (auto) Nucleated RBC % D-Dimer Quant (PE/DVT) Sodium Potassium Chloride Carbon Dioxide Anion Gap BUN Creatinine Estim Creat Clear Calc Est GFR (MDRD) Af Amer Est GFR (MDRD) Non-Af BUN/Creatinine Ratio Glucose Calcium Troponin I High Sens 42 Radiography Diagnostic Testing: Clinical Impression(s) from Imaging Studies Chest X-Ray 11/17/22 20:37 IMPRESSION: No acute cardiopulmonary disease or major interval change. Electronically Signed: Shad Mccain DO at 21:12 EST Reading Location ID and State: [facility] / [place] Tel [phone], Service support , Chest CTA 11/17/22 22:30 IMPRESSION: 1. No evidence of pulmonary embolus. 2. No aortic dissection or aneurysm. 3. No acute pulmonary disease. 4. Status post right mastectomy with axillary node dissection. AIDOC was utilized to assist in identifying pertinent positive findings in this case. Electronically Signed: Shad Mccain DO at 23:46 EST Reading Location ID and State: [facility] / [place] Tel [phone], Service support , EKG Initial EKG: Attestation: I personally reviewed and interpreted this EKG as follows: Interpretation: Sinus Rhythm (Sinus at 65 with no acute ischemia.) Differential Diagnosis Chest pain/SOB: pulmonary embolism Reason(s) PE less likely: Positive for Other (No evidence of PE on CTA.), ACS ACS: Positive for no evidence of ACS based on cardiac biomarkers and EKG without ischemia, pneumonia Reason(s) pneumonia less likely: Positive for no infiltrate on CXR and no elevation in WBC count and aortic dissection Reason(s) Aortic dissection less likely:: Positive for normal vascular exam, normal neurological exam and other (No dissection noted on CTA chest.) Treatment and Re-Evaluation :: Repeat evaluation patient sleeping comfortably. Blood pressures been stable while in the emergency room. EKG is sinus at 65 with no acute ischemia. Chest x-ray per my interpretation was chronic changes with no acute findings. Radiology interpretation is reviewed. CBC reveals low white count at 4.0. Hemoglobin is 10.4. Chemistry studies reveal a sodium of 128. It appears her baseline sodium is between 130 and 132. Potassium is normal at 3.8. Renal function is normal. Troponin is normal at 46 with repeat of 42. D-dimer is 0.88. In light of the elevated D-dimer CTA of the chest is obtained. This reveals no evidence of PE or dissection. Patient is reassured with these findings here. She will follow with her primarycare physician and flight test mechanic. Return instructions been provided. Discharge Plan Triage Chief Complaint: Shortness of Breath ED Provider: Devi Fortune Dx/Rx/DC Orders Clinical Impression: Chest pain Instructions: ED Chest Pain, Uncertain Cause Prescriptions: No Action Flovent HFA 44 mcg/actuation HFA aerosol inhaler 1 inh INHALATION BID cholecalciferol (vitamin D3) 1,000 unit capsule 1,000 unit capsule 1,000 unit PO DAILY methylphenidate HCl 20 mg tablet 20 mg PO BID nebivolol [Bystolic] 5 mg tablet 5 mg PO DAILY omeprazole 20 mg capsule,delayed release(DR/EC) 20 mg PO DAILY tolterodine 4 mg capsule,extended release 24hr 4 mg PO DAILY Hold Instructions: Resume on 05/24/22. 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 Label Comments: TAKE 1 TABLET BY MOUTH THREE TIMES DAILY NEEDED For PAIN ondansetron HCl [Zofran] 4 mg tablet 4 mg PO Q8H PRN (Reason: nausea and vomiting) Qty: 20 0RF pregabalin 150 mg capsule 150 mg PO TID Label Comments: TAKE 1 TABLET BY MOUTH THREE TIMES DAILY ondansetron 4 mg tablet,disintegrating 4 mg PO Q6H PRN (Reason: nausea and vomiting) Qty: 10 0RF cephalexin [cephalexin] 500 mg capsule 500 mg PO Q6 Qty: 28 0RF lisinopril 5 mg tablet 5 mg PO DAILY Qty: 30 0RF Primary Care Provider: Ricardo Ruiz Referrals: Ricardo Ruiz, DO [Primary Care Provider] - 3-5 Days if not improving Disposition Disposition: Home, Self Care What to do if you have Problems For any increased pain, shortness of breath, bleeding, nausea or vomiting, chestpain, or any unexpected problems, contact your Primary Care Provider. Call [facility] ([phone]) or report to the closest Emergency Room. Call 911 if necessary. 11/18/22 0025 <Electronically signed by Devi Fortune MD> Cosigner Signature (if applicable): CC: Dr. Ricardo Ruiz, ~ Signed [facility] Work Phone: [phone]) 732-532103-01-2023 Note ORIGINAL EXAMINATION: LIMITED RETROPERITONEAL ULTRASOUND11/12/2022 10:44 am Ultrasound retroperitoneum Complete: Attention Urinary tract COMPARISON: CT 01/07/2021 HISTORY: ORDERING SYSTEM PROVIDED HISTORY: Reason for Exam: uncontrolled hypertension, recurrent UTI FINDINGS: There is suboptimal evaluation of the kidneys and bladder due to artifacts from body habitus and bowel gas. Only gross evaluation is possible. Right kidney: 10.0 x 5.4 x 3.8 cm Left kidney: 10.1 x 4.4 x 3.8 cm Renal cortical thickness and echogenicity is within normal limits bilaterally. No pelvocaliectasis, stone or renal mass is identified on either side. There is no free fluid seen in the abdomen. Urinary bladder is moderately distended with volume of 112 cc. Evaluation for focal lesions is limited. It empties completely after voiding.. IMPRESSION: Less than optimal evaluation due to body habitus and bowel gas artifacts. The kidneys are sonographically normal. Unremarkable bladder. Interpreted by: Timothy Valadez MD Preliminary Report By: Timothy Valadez MD Electronically signed By Timothy Valadez MD Dictated Date: 11/12/2022 1:39:43 PM Prelim Date: 11/12/2022 1:41:42 PM Sign Date: 11/12/2022 1:41:42 PM Ordering Provider: RICARDO RUIZ [place] [id number] Note ORIGINAL EXAMINATION: LIMITED RETROPERITONEAL ULTRASOUND11/12/2022 10:44 am Ultrasound retroperitoneum Complete: Attention Urinary tract COMPARISON: CT 01/07/2021 HISTORY: ORDERING SYSTEM PROVIDED HISTORY: Reason for Exam: uncontrolled hypertension, recurrent UTI FINDINGS: There is suboptimal evaluation of the kidneys and bladder due to artifacts from body habitus and bowel gas. Only gross evaluation is possible. Right kidney: 10.0 x 5.4 x 3.8 cm Left kidney: 10.1 x 4.4 x 3.8 cm Renal cortical thickness and echogenicity is within normal limits bilaterally. No pelvocaliectasis, stone or renal mass is identified on either side. There is no free fluid seen in the abdomen. Urinary bladder is moderately distended with volume of 112 cc. Evaluation for focal lesions is limited. It empties completely after voiding.. IMPRESSION: Less than optimal evaluation due to body habitus and bowel gas artifacts. The kidneys are sonographically normal. Unremarkable bladder. Interpreted by: Timothy Valadez MD Preliminary Report By: Timothy Valadez MD Electronically signed By Timothy Valadez MD Dictated Date: 11/12/2022 1:39:43 PM Prelim Date: 11/12/2022 1:41:42 PM Sign Date: 11/12/2022 1:41:42 PM Ordering Provider: [facility]02-24-2023 Note HNO ID: [id number] Author: RT Ludwig(R) Service: ? Author Type: Technologist Type: Progress Notes Filed: 11/07/2022 2:09 PM Note Text: Radiology Service Progress Note PATIENT NAME: Carol Ann Orellana DATE OF SERVICE: November 07, 2022 TIME: 2:06 PM PATIENT IDENTITY VERIFICATION COMPLETED USING TWO (2) IDENTIFIERS: Name and Date of confirmed by patient verbally. FALL SCREENING: Has the patient had 2 falls in the last year or 1 fall with injury or currently using an Ambulatory Assistive Device (Walker, Cane, Wheelchair, Crutches, etc.)? Yes, Patient High Risk for Falls What interventions were put in place to prevent falls during this visit? Increased Observations by Caregivers PATIENT GENDER DATA: Female. status: : No status: N/A PATIENT RELEVANT IMPLANT DATA REVIEWED: Not Applicable RADIOLOGY DEPARTMENT: General X-ray: Exam(s) Completed: Spine X-Ray(s): Cervical AP / LAT / FLEX-EXT and Lumbar AP / LAT / L5-S1 / FLEX-EXT Upper Extremity X-Ray(s): Shoulder, AP / TRUE AP left , Y VIEW, NO L5 S1 PERIPHERAL IV DATA: Not applicable SIGNED BY: RT Ludwig(R) November 07, 2022 2:06 [facility]02-20-2023 NoteHNO ID: [id number] Author: William Reza Jr., MD Service: ? Author Type: Physician Type: Progress Notes Filed: 11/03/2022 3:50 PM Note Text: NEW PATIENT (CONSULT) HISTORY AND PHYSICAL EXAM PRIMARY CARE PHYSICIAN: Ricardo Ruiz, DO, DO REASON FOR CONSULT: Concussion REFERRING PHYSICIAN: Self CHIEF COMPLAINT: Pain Consultation requested by Self for an opinion regarding chief complaint of Patient presents with: New Patient and my final recommendations will be communicated back to the requesting physician by way of shared medical record or letter via [place] mail. HISTORY OF PRESENT ILLNESS: Carol Ann Orellana is a 77 year old female, with a PMH significant for that below. States on 06/17/22 states her LLE gave out on her and she fell forward hitting the front of her head (points to area between the eyes). States that since that time she had a constant headaches and her eyes droop. States can only lie in 1 or 2 positions or else feels like a ridge is going down her head (unclear what this means and patient does not clarify). Note pt on [place] and Lyrica that she takes for lower back disc disease (chronic issues with LLE weakness as result). Provides some relief of headaches. Endorses photophobia and occasional nausea. Takes 4 Norcos daily. Also on Lyrica 150mg TID. Patient also on Xanax 1mg TID. Pt also on Ritalin 20mg BID (states takes to give her focus). Patient states neck hurts where head connects to her spine. States pain radiates up back of head and across shoulders. CT scans at time of event ([facility]) per reports were unremarkable. Per reports some bruising over the head and per pt was told to "stay in bed for a month". Headaches not positional. Patient denies taking blood thinners but did in the past due to blood clots in legs and lungs (she states were due to an injury to the leg). Nothing patient can do to make the headaches better. States she does have HTN with BP shooting up every evening "I can tell by 5PM it is going to work itself up". Patient follows with eye doctor with no issues prior to the fall. Note pt had "droopy eye lids" before the fall that eye doctors were following her for. States distant history of mild headaches off and on. No family history of headaches. Patient adds that she has chronic numbness in the L hand for years due to a blood draw. In addition she is reporting jerks of her body when falling asleep at night (likely benign). REVIEW OF SYSTEMS GENERAL:No weight loss, malaise or fevers. HEENT:No changes in hearing or vision, no nose bleeds or other nasal problems NECK:See HPI. RESPIRATORY: Negative for cough, wheezing or shortness of breath. CARDIOVASCULAR: Negative for chest pain, leg swelling or palpitations. GASTROINTESTINAL: Negative for abdominal discomfort, blood in stools or black stools or change in bowel habits GENITOURINARY: No history of dysuria, frequency or incontinence MUSCULOSKELETAL: Negative for joint pain or swelling, back pain or muscle pain. NEUROLOGIC:Negative for focal numbness or weakness, dizziness or syncope, vision changes, speech/language changes, changes in gait or falls -- besides those complaints as above in HPI. SKIN:Negative for lesions, rash, and itching. HEMATOLOGIC/LYMPHATIC/IMMUNOLOGIC:Negative for prolonged bleeding, bruising easily or swollen nodes. ENDOCRINE: Negative for cold or heat intolerance, polyuria, polydipsia and goiter. The remainder of the ROS was reviewed and is negative. LAB/IMAGING: Reviewed and include: I cannot access patient's labs through [employer]. MEDICATIONS: losartan (COZAAR) 50 mg tablet 50 mg twice daily. [START ON 11/11/2022] HYDROcodone-Acetaminophen (NORCO) 10-325 mg per tablet Take 1 tablet by mouth every 6 hours as needed for pain for up to 30 days. Do not start before November 11, 2022. [START ON 11/10/2022] pregabalin (LYRICA) 150 mg capsule Take 1 capsule by mouth three times daily for 30 days. Do not start before November 10, 2022. hydrALAZINE (APRESOLINE) 10 mg tablet TAKE 1 TABLET BY MOUTH FOUR TIMES DAILY NEEDED IF SBP >160 FOR 30 DAYS nebivolol (BYSTOLIC) 10 mg tablet Take 10 mg by mouth once daily. ondansetron orally disintegrating (ZOFRAN ODT) 4 mg disintegrating tablet Take 4 mg by mouth every 6 hours as needed. For Nausea ondansetron (ZOFRAN) 4 mg tablet TAKE 1 TABLET BY MOUTH EVERY 6 HOURS NEEDED FOR NAUSEA OR FOR VOMITING omeprazole (PRILOSEC) 20 mg capsule TAKE 1 CAPSULE BY MOUTH DAILY ON AN EMPTY STOMACH QVAR REDIHALER 80 mcg/actuation inhaler INHALE 2 PUFFS BY MOUTH and into the lungs TWICE DAILY aspirin, enteric coated (ASPIRIN, ENTERIC COATED) 81 mg EC tablet 81 mg. albuterol HFA (PROVENTIL HFA, VENTOLIN HFA) 90 mcg/actuation inhaler INHALE 2 PUFFS BY MOUTH and into the lungs FOUR TIMES DAILY NEEDED ALPRAZolam (XANAX) 1 mg tablet Take 1 mg by mouth three times daily. mv, min #36-iron,carbonyl-FA (GERITOL COMPLETE) 16 mg iron (more content not included)...[facility]02-20-2023 History of Present illness Narrative* William Reza Jr., MD - 11/03/2022 2:35 PM EST NEW PATIENT (CONSULT) HISTORY AND PHYSICAL EXAM PRIMARY CARE PHYSICIAN: Ricardo Ruiz, DO, DO REASON FOR CONSULT: Concussion REFERRING PHYSICIAN: Self CHIEF COMPLAINT: Pain Consultation requested by Self for an opinion regarding chief complaint of Patient presents with: New Patient and my final recommendations will be communicated back to the requesting physician by way of sharedmedical record or letter via [place] mail. HISTORY OF PRESENT ILLNESS: Carol Ann Orellana is a 77 year old female, with a PMH significant for that below. States on 06/17/22 states her LLE gave out on her and she fell forward hitting the front of her head (points to area between the eyes). States that since that time she had a constant headachesand her eyes droop. States can only lie in 1 or 2 positions or else feels like a ridge is going down her head (unclear what this means and patient does not clarify). Note pt on [place] and Lyrica that she takes for lower back disc disease (chronic issues with LLE weakness as result). Provides some relief of headaches. Endorses photophobia and occasional nausea. Takes 4 Norcos daily. Also on Lyrica 150mg TID. Patient also on Xanax 1mg TID. Pt also on Ritalin 20mg BID (states takes to give her focus). Patient states neck hurts where head connects to her spine. States pain radiates up back of headand across shoulders. CT scans at time of event ([facility]) per reports were unremarkable. Per reports some bruising over the head and per pt was told to "stay in bed for a month". Headaches not positional. Patient denies taking blood thinners but did in the past due to blood clots in legs and lungs (shestates were due to an injury to the leg). Nothing patient can do to make the headaches better. States she does have HTN with BP shooting up every evening "I can tell by 5PM it is going to work itselfup". Patient follows with eye doctor with no issues prior to the fall. Note pt had "droopy eye lids" before the fall that eye doctors were following her for. States distant history of mild headaches off and on. No family history of headaches. Patient adds that she has chronic numbness in the L handfor years due to a blood draw. In addition she is reporting jerks of her body when falling asleep at night (likely benign). REVIEW OF SYSTEMS GENERAL:No weight loss, malaise or fevers. HEENT:No changes in hearing or vision, no nose bleeds or other nasal problems NECK:See HPI. RESPIRATORY: Negative for cough, wheezing or shortness of breath. CARDIOVASCULAR: Negative for chest pain, leg swelling or palpitations. GASTROINTESTINAL: Negative for abdominal discomfort, blood in stools or black stools or change in bowel habits GENITOURINARY: No history of dysuria, frequency or incontinence MUSCULOSKELETAL: Negative for joint pain or swelling, back pain or muscle pain. NEUROLOGIC:Negative for focal numbness or weakness, dizziness or syncope, vision changes, speech/language changes, changes in gait or falls -- besides those complaints as above in HPI. SKIN:Negative for lesions, rash, and itching. HEMATOLOGIC/LYMPHATIC/IMMUNOLOGIC:Negative for prolonged bleeding, bruising easily or swollen nodes. ENDOCRINE: Negative for cold or heat intolerance, polyuria, polydipsia and goiter. The remainder of the ROS was reviewed and is negative. LAB/IMAGING: Reviewed and include: I cannot access patient's labs through [employer]. MEDICATIONS: losartan (COZAAR) 50 mg tablet 50 mg twice daily. [START ON 11/11/2022] HYDROcodone-Acetaminophen (NORCO) 10-325 mg per tablet Take 1 tablet by mouth every 6 hours as needed for pain for up to 30 days. Do not start before November 11, 2022. [START ON 11/10/2022] pregabalin (LYRICA) 150 mg capsule Take 1 capsule by mouth three times daily for 30 days. Do not start before November 10, 2022. hydrALAZINE (APRESOLINE) 10 mg tablet TAKE 1 TABLET BY MOUTH FOUR TIMES DAILY NEEDED IF SBP >160 FOR 30 DAYS nebivolol (BYSTOLIC) 10 mg tablet Take 10 mg by mouth once daily. ondansetron orally disintegrating (ZOFRAN ODT) 4 mg disintegrating tablet Take 4 mg by mouth every 6 hours as needed. For Nausea ondansetron (ZOFRAN) 4 mg tablet TAKE 1 TABLET BY MOUTH EVERY 6 HOURS NEEDED FOR NAUSEA OR FOR VOMITING omeprazole (PRILOSEC) 20 mg capsule TAKE 1 CAPSULE BY MOUTH DAILY ON AN EMPTY STOMACH QVAR REDIHALER 80 mcg/actuation inhaler INHALE 2 PUFFS BY MOUTH and into the lungs TWICE DAILY aspirin, enteric coated (ASPIRIN, ENTERIC COATED) 81 mg EC tablet 81 mg. albuterol HFA (PROVENTIL HFA, VENTOLIN HFA) 90 mcg/actuation inhaler INHALE 2 PUFFS BY MOUTH and into the lungs FOUR TIMES DAILY NEEDED ALPRAZolam (XANAX) 1 mg tablet Take 1 mg by mouth three times daily. mv, min #36-iron,carbonyl-FA (GERITOL COMPLETE) 16 mg iron- 0.38 mg tab Geritol Complete 16 mg iron- 0.38 mg tablet lidocaine-prilocaine (EMLA) 2.5-2.5 % cream 1-2 g as needed. furosemide (LASIX) 20 mg tablet Take 20 mg by mouth as needed. famotidine (PEPCID) 20 mg tablet Take 20mg tab 1 hour prior to procedure iron/vitamin B complex (GERITOL ORAL) Take by mouth. lidocaine-methyl lisa-menthol 5-10-3 % ktop lidocaine 5 % oint fluticasone (FLOVENT) 220 mcg/actuation inhaler flovent hfa 220 mcg/act aero estradiol (ESTRACE) 0.01 % (0.1 mg/gram) vaginal cream use one gram VAGINALLY three times per week methylphenidate (RITALIN) 20 mg tablet Take 20 mg by mouth twice daily. levothyroxine (SYNTHROID) 50 mcg tablet Take 50 mcg by mouth daily before breakfast. ergocalciferol 50,000 unit capsule (VITAMIN D2, DRISDOL) Take 50,000 Units by mouth once each week. meclizine (ANTIVERT) 25 mg tab Take 25 mg by mouth as needed. For dizziness amLODIPine (NORVASC) 5 mg tablet Take 5 mg by mouth once daily. (Patient not taking: Reported on 11/03/2022) amLODIPine-Olmesartan 5-20 mg tab Take 1 tablet by mouth once daily. (Patient not taking: Reported on 11/03/2022) amoxicillin (POLYMOX, AMOXIL) 500 mg capsule TAKE 1 CAPSULE BY MOUTH TWICE DAILY for 14 days. (Patient not taking: Reported on 11/03/2022) lisinopril (ZESTRIL, PRINIVIL) 5 mg tablet Take 5 mg by mouth once daily. (Patient not taking: Reported on 11/03/2022) methylPREDNISolone (MEDROL DOSE-PACK) 4 mg Dose-Pack as directed. (Patient not taking: Reported on 11/03/2022) tiZANidine (ZANAFLEX) 4 mg tablet take ONE-HALF TABLET BY MOUTH AT BEDTIME FOR MUSCLE SPASMS (Patient not taking: Reported on 11/03/2022) lidocaine (LIDODERM) 5 % Apply 1 Patch as directed every 24 hours. nitrofurantoin macrocrystal (MACRODANTIN) 100 mg capsule TAKE 1 CAPSULE BY MOUTH TWICE DAILY for 7 (SEVEN) days (Patient not taking: Reported on 11/03/2022) cephALEXin (KEFLEX) 500 mg capsule Take 1 Tablet (oral) 2 times per day for 7 days (Patient not taking: Reported on 11/03/2022) furosemide (LASIX) 40 mg tablet 40 mg. rivaroxaban (XARELTO) 10 mg tablet Take 1 tablet by mouth once daily. (Patient not taking: Reportedon 11/03/2022) predniSONE (DELTASONE) 20 mg tablet 40 mg po [id number] x3 doses, start 24 hours prior to test. 40mg po 1 hour prior to test (Patient not taking: Reported on 11/03/2022) tolterodine ER (DETROL LA) 4 mg 24 hr capsule Take 1 capsule by mouth once daily. phenazopyridine (PYRIDIUM) 200 mg tablet Take 1 tablet by mouth three times daily as needed. (Patient not taking: Reported on 11/03/2022) diclofenac sodium(VOLTAREN 1 % TOPICAL GEL) apply 4 grams 4 times daily (Patient not taking: Reported on 11/03/2022) HISTORIES PAST MEDICAL HISTORY Diagnosis Date Bladder infection Breast cancer (HCC) GERD (gastroesophageal reflux disease) Kidney stones Leg pain Migraines Neurogenic bladder Osteoarthrosis, unspecified whether generalized or localized, other specified sites Osteoporosis Other and unspecified disc disorder of unspecified region Intervertebral disc disorders DIAMOND (stress urinary incontinence, female) Thyroid disease Urethral hypermobility Urge incontinence Urgency of urination FAMILY HISTORY Problem Relation Age of Onset Diabetes Mother Stroke Mother Hypertension Mother Heart Father Hypertension Father Heart disease Brother Diabetes Brother SOCIAL HISTORY Social History Tobacco Use Smoking status: Former Years: 15.00 Types: Cigarettes Quit date: 1982 Years since quittin.1 Smokeless tobacco: Never Substance Use Topics Alcohol use: No Drug use: No PHYSICAL EXAMINATION Blood pressure (P) 107/58, pulse (P) 67, temperature (P) 36.8 C (98.2 F), resp. rate (P) 18, weight(P) 59.5 kg (131 lb 3.2 oz), SpO2 (P) 94 %. GENERAL EXAM: General appearance: NAD, pleasant. HEENT: NC/AT, nasal congestion absent, no oral lesions, membranes moist. NECK: ROM tested. Complaints of pain on rotation or R as well as extension of head - states "everywhere in the neck". Lungs: CTA bilaterally. CV: RRR nl S1, S2 Extr: No cyanosis, clubbing or edema. Skin: Cool to touch. NEUROLOGICAL EXAM: General: Awake, alert, oriented x3 (person,place,time), speech fluent, no dysarthria; comprehension, naming, repetition intact. CN: PERRL, fundi with no evidence of papilledema, EOMI and without nystagmus, VFF to confrontation,splits vibration midline (less on left), does same for pin, hearing is intact to finger rub bilaterally, palate and tongue movements are intact and symmetric. SCM and trapezius strength normal. Motor: Normal tone, bulk and strength (5/5) bilaterally (throughout extremities x4). Coordination: FNF, NEW, HTS intact. No tremors. Sensation: Light touch, vibration intact throughout. No evidence of neglect. Gait: Stable with normal stride and arm swing. Assessment and Plan: ASSESSMENT/PLAN: 1. Intractable acute post-traumatic headache - ICD9: 339.21, ICD10: G44.311 (primary diagnosis) 2. Cervicalgia - ICD9: 723.1, ICD10: M54.2 3. Medication overuse headache - ICD9: 339.3, ICD10: G44.40 4. Hypertension, unspecified type - ICD9: 401.9, ICD10: I10 Patient provides history of acute onset, droopy eye lids and neck pain following head trauma as above that she initially indicates was secondary to head trauma when she fell into a door jam. However,further history suggests she may have had such symptoms even prior to the fall. Difficult to assesswhether symptoms are truly acute or chronic and further exacerbated by trauma. Workup at [facility] was rep ortedly unremarkable. Pt does have history of chronic pain and is followed by pain mgmt. Currently with non-focal exam except for functional finding of splitting sensation on forehead. In addition tohistory of trauma, patient has other risk factors for worsening headache including taking possible medication overuse with pt on [place], Xanax, Lyrica as well as Ritalin. BP might also be a cause of headaches with pt reporting uncontrolled BPs at home. Given her age, the multiple meds she is on poseother risks as well, and I will not be adding more meds to her regimen at this time. To further evaluate for other etiologies of headache, will get MRI brain to determine if intracranial cause (I.e. slow SDH not seen on CT brain); MRV to evaluate for sinus thrombosis given history of clotting. For neck pain and decreased ROM, will get MRI C spine to evaluate for traumatic changes not seen on CT Cspine at OSH. Pt agrees with plan. Pt will follow up after imaging completed. Encouraged pt to follow up with PCP regarding BP and her physicians regarding polypharmacy. William Reza MD I spent a total of 45+ minutes on the date of the service which included preparing to see the patient, [id number] patient care, completing clinical documentation, obtaining and/or reviewing separately obtained history, performing a medically appropriate examination, counseling and educating the pa tient/family/caregiver, ordering medications, tests, or procedures, and communicating results to the patient/family/caregiver. PDMP website checked and validated. 11/03/2022 by William Reza MD documented in this encounter[facility]23 History of Present illness Narrative* Zoila Valiente COLTON.NUCLEAR FUEL PROCESSING TECHNICIAN - 10/03/2022 1:10 PM EST This video visit was performed via [employer] video visit. Patient consented to receive health care services via virtual visit for this encounter Provider Location[facility] Patient Location: Patient Home or Place of Residence Risks, benefits, and limitations of receiving care virtually were discussed with the patient. The patient expressed understanding and is willing to proceed. Chief Complaint: Pain History of Present Illness: Carol Ann Orellana is a 77 year old year old female being seen at [facility] for a evaluation and/or management of her chronic pain. The patient was last seen virtually on 09/09/2022. She states that since the last visit symptoms have been persistent. Her medical history has not changed and she denies any hospital stays or ER visits. Pain Location: lower back -mid back, right leg pain Radiation: arms and legs Character: aching Intensity: 5/10 Numbness/tingling: legs Burning: occasionally feet Weakness: arms Falls: a few toe Worsening factors: physical activity and cold weather Relieving factors: rest and medication Patient denies any bowel or bladder dysfunction. The patient is currently prescribed [place], lyrica, Voltaren gel, and lidocaine cream from our office. The last dose of [place] were taken today. The medications are partially effective. The OARRS report has been reviewed and is consistent with the patients medical history and medication intake. Last Urine Drug Screen (UDS): 05/16/22. The UDS has been reviewed and is consistent with medications prescribed. REVIEW OF SYSTEMS: GENERAL: No weight loss or fevers RESPIRATORY: Negative for cough CARDIOVASCULAR: Negative for chest pain GI: No nausea, vomiting, or diarrhea. MUSCULOSKELETAL: back pain and muscle pain PAST MEDICAL HISTORY Diagnosis Date Bladder infection Breast cancer (HCC) GERD (gastroesophageal reflux disease) Kidney stones Leg pain Migraines Neurogenic bladder Osteoarthrosis, unspecified whether generalized or localized, other specified sites Osteoporosis Other and unspecified disc disorder of unspecified region Intervertebral disc disorders DIAMOND (stress urinary incontinence, female) Thyroid disease Urethral hypermobility Urge incontinence Urgency of urination PAST SURGICAL HISTORY Procedure Laterality Date ANESTHESIA TOTAL KNEE REPLACEMENT APPENDECTOMY 08/1961 ARTHROTOMY KNEE W/SYNOVIAL BIOPSY ONLY Semilunar cartilage, knee - right BACK SURGERY HX 2011 BLADDER SURGERY HX 2012 BREAST SURGERY HX Right 2018 breast and 3 lymph nodes removed CARPAL TUNNEL Left 12/1979 CATARACT EXTRACTION HX CATARACT EXTRACTION HX 2009 CHOLECYSTECTOMY ELBOW SURGERY HX Left 1994 EXPLORATORY LAPAROTOMY CELIOTOMY W/WO BIOPSY SPX Laparotomy, exp - lysis of adhesions HAND SURGERY HX Right 1989 KNEE SURGERY HX Right removal of meniscus LX EXCISION OF BLADDER TUMOR 1979, 1983 OOPHORECTOMY PARTIAL/TOTAL UNI/BI Oophorectomy TOTAL ABDOMINAL HYSTERECT W/WO RMVL TUBE OVARY Hysterectomy, TOTAL KNEE REPLACEMENT 2009 FAMILY HISTORY Problem Relation Age of Onset Diabetes Mother Stroke Mother Hypertension Mother Heart Father Hypertension Father Heart disease Brother Diabetes Brother Social History Tobacco Use Smoking status: Former Years: 15.00 Types: Cigarettes Quit date: 1982 Years since quittin.0 Smokeless tobacco: Never Substance Use Topics Alcohol use: No Drug use: No Allergies: Oxycodone-Acetamino* Other: See Comments Cortisone Doxycycline Unknown Iv Dye [Iodinated C* Rash Montelukast Unknown, Rash Oxycodone Unknown Sulfa (Sulfonamide * Latex Rash Current Outpatient Medications Medication Sig amLODIPine (NORVASC) 5 mg tablet Take 5 mg by mouth once daily. amLODIPine-Olmesartan 5-20 mg tab Take 1 tablet by mouth once daily. hydrALAZINE (APRESOLINE) 10 mg tablet TAKE 1 TABLET BY MOUTH FOUR TIMES DAILY NEEDED IF SBP >160 FOR 30 DAYS nebivolol (BYSTOLIC) 10 mg tablet Take 10 mg by mouth once daily. HYDROcodone-Acetaminophen (NORCO) 10-325 mg per tablet Take 1 tablet by mouth every 6 hours as needed for pain for up to 30 days. Do not start before September 12, 2022. amoxicillin (POLYMOX, AMOXIL) 500 mg capsule TAKE 1 CAPSULE BY MOUTH TWICE DAILY for 14 days. lisinopril (ZESTRIL, PRINIVIL) 5 mg tablet Take 5 mg by mouth once daily. methylPREDNISolone (MEDROL DOSE-PACK) 4 mg Dose-Pack as directed. tiZANidine (ZANAFLEX) 4 mg tablet take ONE-HALF TABLET BY MOUTH AT BEDTIME FOR MUSCLE SPASMS pregabalin (LYRICA) 150 mg capsule Take 1 capsule by mouth three times daily for 30 days. Do not start before August 13, 2022. ondansetron orally disintegrating (ZOFRAN ODT) 4 mg disintegrating tablet Take 4 mg by mouth every 6 hours as needed. For Nausea lidocaine (LIDODERM) 5 % Apply 1 Patch as directed every 24 hours. nitrofurantoin macrocrystal (MACRODANTIN) 100 mg capsule TAKE 1 CAPSULE BY MOUTH TWICE DAILY for 7 (SEVEN) days ondansetron (ZOFRAN) 4 mg tablet TAKE 1 TABLET BY MOUTH EVERY 6 HOURS NEEDED FOR NAUSEA OR FOR VOMITING omeprazole (PRILOSEC) 20 mg capsule TAKE 1 CAPSULE BY MOUTH DAILY ON AN EMPTY STOMACH QVAR REDIHALER 80 mcg/actuation inhaler INHALE 2 PUFFS BY MOUTH and into the lungs TWICE DAILY aspirin, enteric coated (ASPIRIN, ENTERIC COATED) 81 mg EC tablet 81 mg. albuterol HFA (PROVENTIL HFA, VENTOLIN HFA) 90 mcg/actuation inhaler INHALE 2 PUFFS BY MOUTH and into the lungs FOUR TIMES DAILY NEEDED cephALEXin (KEFLEX) 500 mg capsule Take 1 Tablet (oral) 2 times per day for 7 days furosemide (LASIX) 40 mg tablet 40 mg. ALPRAZolam (XANAX) 1 mg tablet Take 1 mg by mouth three times daily. rivaroxaban (XARELTO) 10 mg tablet Take 1 tablet by mouth once daily. mv, min #36-iron,carbonyl-FA (GERITOL COMPLETE) 16 mg iron- 0.38 mg tab Geritol Complete 16 mg iron- 0.38 mg tablet lidocaine-prilocaine (EMLA) 2.5-2.5 % cream 1-2 g as needed. furosemide (LASIX) 20 mg tablet Take 20 mg by mouth once daily. famotidine (PEPCID) 20 mg tablet Take 20mg tab 1 hour prior to procedure predniSONE (DELTASONE) 20 mg tablet 40 mg po [id number] x3 doses, start 24 hours prior to test. 40mg po 1 hour prior to test iron/vitamin B complex (GERITOL ORAL) Take by mouth. tolterodine ER (DETROL LA) 4 mg 24 hr capsule Take 1 capsule by mouth once daily. phenazopyridine (PYRIDIUM) 200 mg tablet Take 1 tablet by mouth three times daily as needed. lidocaine-methyl lisa-menthol 5-10-3 % ktop lidocaine 5 % oint fluticasone (FLOVENT HFA) 220 mcg/actuation inhaler flovent hfa 220 mcg/act aero estradiol (ESTRACE) 0.01 % (0.1 mg/gram) vaginal cream use one gram VAGINALLY three times per week methylphenidate (RITALIN) 20 mg tablet Take 20 mg by mouth twice daily. levothyroxine (SYNTHROID) 50 mcg tablet Take 50 mcg by mouth daily before breakfast. ergocalciferol, vitamin D2, (VITAMIN D) 50,000 unit capsule Take 50,000 Units by mouth once each week. meclizine (ANTIVERT) 25 mg tab Take 25 mg by mouth as needed. For dizziness diclofenac sodium(VOLTAREN 1 % TOPICAL GEL) apply 4 grams 4 times daily No current facility-administered medications for this visit. PHYSICAL EXAMINATION: VIDEO EXAM: (performed via video enabled technology) GENERAL: alert and appropriate, in no distress and well-hydrated, well nourished HEAD: normocephalic, no abnormality or lesion noted RESPIRATORY: breathing non-labored NEUROLOGIC: no obvious deficit ASSESSMENT: Patient is stable. Chronic pain is persistent. Medications are helping Carol Ann Orellana to have an improved quality of life. Patient compliance with Opioid Contract: patient is compliant Encounter Diagnosis ICD-10-CM 1. Other chronic pain G89.29 2. Lumbar radiculopathy M54.16 3. care home (current) use of opiate analgesic Z79.891 PLAN: The patient understands the goal of our treatment is a reduction in pain and/or an improved level of functioning with activities of daily living. If at any time the patient does not feel the medications are helping them to achieve these goals, the medications may be discontinued. The patient reports a reduction in pain and/or an improved level of functioning with activities of daily living, denies any significant adverse effects, is compliant with the pain management agreement and there are no signs of medication misuse, abuse or diversion; therefore, the medications will be continued. Continue [place]- Continue Lyrica Patient will call to schedule RFA when she is ready. Pt is declining procedures at this time Continue Diclofenac gel and Lidocaine ointment Continue Lidocaine patches Continue OTC stool softeners and Colace Continue LB brace Continue care with specialists F/U in 1 month Zoila Valiente APRN.CNP documented in this encounterSum[facility]01-20-2023 Instructions* Patient Instructions* Zoila Valiente APRN.CNP - 10/03/2022 9:04 AM EST Continue [place] Continue Lyrica Patient will call to schedule RFA when she is ready. Pt is declining procedures at this time Continue Diclofenac gel and Lidocaine ointment Continue Lidocaine patches Continue OTC stool softeners and Colace Continue LB brace Continue care with specialists F/U in 1 month documented in this encounterSum[facility] Health11-16-2022 History of Present illness Narrative* Zoila Valiente APRN.CNP - 2022 1:15 PM EST This video visit was performed via [employer]Page video visit. Patient consented to receive health care services via virtual visit for this encounter Provider Location: Non-[facility] Patient Location: Patient Home or Place of Residence Risks, benefits, and limitations of receiving care virtually were discussed with the patient. The patient expressed understanding and is willing to proceed. Chief Complaint: Pain History of Present Illness: Carol Ann Orellana is a 77 year old year old female being seen at [facility] for a evaluation and/or management of her chronic pain. The patient was last seen virtually on 06/26/2022. She states that since the last visit symptoms have been persistent. Her medical history has not changed and she denies any hospital stays or ER visits. Pain Location: lower back -mid back, right leg pain Radiation: arms and legs Character: aching Intensity: 6-7/10 Numbness/tingling: legs Burning: occasionally feet Weakness: arms Falls: a few toe Worsening factors: physical activity and cold weather Relieving factors: rest and medication Patient denies any bowel or bladder dysfunction. The patient is currently prescribed [place], lyrica, Voltaren gel, and lidocaine cream from our office. The last dose of [place] were taken this afternoon. The medications are partially effective. The OARRS report has been reviewed and is consistent with the patients medical history and medication intake. Last Urine Drug Screen (UDS): 05/16/22. The UDS has been reviewed and is consistent with medications prescribed. REVIEW OF SYSTEMS: GENERAL: No weight loss or fevers RESPIRATORY: Negative for cough CARDIOVASCULAR: Negative for chest pain GI: No nausea, vomiting, or diarrhea. MUSCULOSKELETAL: back pain and muscle pain PAST MEDICAL HISTORY Diagnosis Date Bladder infection Breast cancer (HCC) GERD (gastroesophageal reflux disease) Kidney stones Leg pain Migraines Neurogenic bladder Osteoarthrosis, unspecified whether generalized or localized, other specified sites Osteoporosis Other and unspecified disc disorder of unspecified region Intervertebral disc disorders DIAMOND (stress urinary incontinence, female) Thyroid disease Urethral hypermobility Urge incontinence Urgency of urination PAST SURGICAL HISTORY Procedure Laterality Date ANESTHESIA TOTAL KNEE REPLACEMENT APPENDECTOMY 08/1961 ARTHROTOMY KNEE W/SYNOVIAL BIOPSY ONLY Semilunar cartilage, knee - right BACK SURGERY HX 2010 BLADDER SURGERY HX 2012 BREAST SURGERY HX Right 2018 breast and 3 lymph nodes removed CARPAL TUNNEL Left 12/1979 CATARACT EXTRACTION HX CATARACT EXTRACTION HX 2009 CHOLECYSTECTOMY ELBOW SURGERY HX Left 1994 EXPLORATORY LAPAROTOMY CELIOTOMY W/WO BIOPSY SPX Laparotomy, exp - lysis of adhesions HAND SURGERY HX Right 1989 KNEE SURGERY HX Right removal of meniscus LX EXCISION OF BLADDER TUMOR 1983 OOPHORECTOMY PARTIAL/TOTAL UNI/BI Oophorectomy TOTAL ABDOMINAL HYSTERECT W/WO RMVL TUBE OVARY Hysterectomy, TOTAL KNEE REPLACEMENT 2009 FAMILY HISTORY Problem Relation Age of Onset Diabetes Mother Stroke Mother Hypertension Mother Heart Father Hypertension Father Heart disease Brother Diabetes Brother Social History Tobacco Use Smoking status: Former Years: 15.00 Types: Cigarettes Quit date: 1982 Years since quittin.9 Smokeless tobacco: Never Substance Use Topics Alcohol use: No Drug use: No Allergies: Oxycodone-Acetamino* Other: See Comments Cortisone Doxycycline Unknown Iv Dye [Iodinated C* Rash Montelukast Unknown, Rash Oxycodone Unknown Sulfa (Sulfonamide * Latex Rash Current Outpatient Medications Medication Sig methylPREDNISolone (MEDROL DOSE-PACK) 4 mg Dose-Pack as directed. tiZANidine (ZANAFLEX) 4 mg tablet take ONE-HALF TABLET BY MOUTH AT BEDTIME FOR MUSCLE SPASMS ondansetron orally disintegrating (ZOFRAN ODT) 4 mg disintegrating tablet Take 4 mg by mouth every 6 hours as needed. For Nausea pregabalin (LYRICA) 150 mg capsule Take 1 capsule by mouth three times daily for 30 days. Do not start before July 14, 2022. HYDROcodone-Acetaminophen (NORCO) 10-325 mg per tablet Take 1 tablet by mouth every 6 hours as needed for pain for up to 30 days. Do not start before July 14, 2022. lidocaine (LIDODERM) 5 % Apply 1 Patch as directed every 24 hours. nitrofurantoin macrocrystal (MACRODANTIN) 100 mg capsule TAKE 1 CAPSULE BY MOUTH TWICE DAILY for 7 (SEVEN) days ondansetron (ZOFRAN) 4 mg tablet TAKE 1 TABLET BY MOUTH EVERY 6 HOURS NEEDED FOR NAUSEA OR FOR VOMITING omeprazole (PRILOSEC) 20 mg capsule TAKE 1 CAPSULE BY MOUTH DAILY ON AN EMPTY STOMACH QVAR REDIHALER 80 mcg/actuation inhaler INHALE 2 PUFFS BY MOUTH and into the lungs TWICE DAILY aspirin, enteric coated (ASPIRIN, ENTERIC COATED) 81 mg EC tablet 81 mg. albuterol HFA (PROVENTIL HFA, VENTOLIN HFA) 90 mcg/actuation inhaler INHALE 2 PUFFS BY MOUTH and into the lungs FOUR TIMES DAILY NEEDED cephALEXin (KEFLEX) 500 mg capsule Take 1 Tablet (oral) 2 times per day for 7 days furosemide (LASIX) 40 mg tablet 40 mg. ALPRAZolam (XANAX) 1 mg tablet Take 1 mg by mouth three times daily. rivaroxaban (XARELTO) 10 mg tablet Take 1 tablet by mouth once daily. mv, min #36-iron,carbonyl-FA (GERITOL COMPLETE) 16 mg iron- 0.38 mg tab Geritol Complete 16 mg iron- 0.38 mg tablet lidocaine-prilocaine (EMLA) 2.5-2.5 % cream 1-2 g as needed. amoxicillin-clavulanic acid (AUGMENTIN) 500-125 mg per tablet Take 1 tablet by mouth twice daily. furosemide (LASIX) 20 mg tablet Take 20 mg by mouth once daily. famotidine (PEPCID) 20 mg tablet Take 20mg tab 1 hour prior to procedure diphenhydrAMINE (BENADRYL) 25 mg capsule Take 50mg PO 1 hour prior to procedure. (Patient not taking: Reported on 01/07/2022 ) predniSONE (DELTASONE) 20 mg tablet 40 mg po [id number] x3 doses, start 24 hours prior to test. 40mg po 1 hour prior to test nitrofurantoin monohydrate and macrocrystal (MACROBID) 100 mg capsule TAKE 1 CAPSULE EVERY 12 HOURSfor 7 days. Take with meal/food. (Patient not taking: Reported on 09/26/2021) iron/vitamin B complex (GERITOL ORAL) Take by mouth. tolterodine ER (DETROL LA) 4 mg 24 hr capsule Take 1 capsule by mouth once daily. phenazopyridine (PYRIDIUM) 200 mg tablet Take 1 tablet by mouth three times daily as needed. lidocaine-methyl lisa-menthol 5-10-3 % ktop lidocaine 5 % oint fluticasone (FLOVENT HFA) 220 mcg/actuation inhaler flovent hfa 220 mcg/act aero estradiol (ESTRACE) 0.01 % (0.1 mg/gram) vaginal cream use one gram VAGINALLY three times per week methylphenidate (RITALIN) 20 mg tablet Take 20 mg by mouth twice daily. levothyroxine (SYNTHROID) 50 mcg tablet Take 50 mcg by mouth daily before breakfast. nebivolol (BYSTOLIC) 5 mg tablet Take 5 mg by mouth once daily. ergocalciferol, vitamin D2, (VITAMIN D) 50,000 unit capsule Take 50,000 Units by mouth once each week. meclizine (ANTIVERT) 25 mg tab Take 25 mg by mouth as needed. For dizziness diclofenac sodium(VOLTAREN 1 % TOPICAL GEL) apply 4 grams 4 times daily No current facility-administered medications for this visit. PHYSICAL EXAMINATION: VIDEO EXAM: (performed via video enabled technology) GENERAL: alert and appropriate, in no distress and well-hydrated, well nourished HEAD: normocephalic, no abnormality or lesion noted RESPIRATORY: breathing non-labored NEUROLOGIC: no obvious deficit ASSESSMENT: Patient is stable. Chronic pain is persistent. Medications are helping Carol Ann Orellana to have an improved quality of life. Patient compliance with Opioid Contract: patient is compliant Encounter Diagnosis ICD-10-CM 1. Chronic pain syndrome G89.4 2. Lumbar radiculopathy M54.16 3. Low back pain with sciatica, sciatica laterality unspecified, unspecified back pain laterality, unspecified chronicity M54.40 4. Lumbar post-laminectomy syndrome M96.1 PLAN: The patient understands the goal of our treatment is a reduction in pain and/or an improved level of functioning with activities of daily living. If at any time the patient does not feel the medications are helping them to achieve these goals, the medications may be discontinued. The patient reports a reduction in pain and/or an improved level of functioning with activities of daily living, denies any significant adverse effects, is compliant with the pain management agreement and there are no signs of medication misuse, abuse or diversion; therefore, the medications will be continued. Continue [place]- increase to 120 per month Continue Lyrica Patient will call to schedule RFA when she is ready. Pt is declining procedures at this time Continue Diclofenac gel and Lidocaine ointment Continue Lidocaine patches Continue OTC stool softeners and Colace Continue LB brace Continue care with specialists F/U in 1 month Zolia Valiente APRN.SOPHIA documented in this encounterSumma Health11-16-2022 Instructions* Patient Instructions* Zoila Valiente APRN.CNP - 2022 12:48 PM EST Stop Hysingla- Continue [place]- increase to 120 per month Continue Lyrica Patient will call to schedule RFA when she is ready. Pt is declining procedures at this time Continue Diclofenac gel and Lidocaine ointment Continue Lidocaine patches Continue OTC stool softeners and Colace Continue LB brace Continue care with specialists F/U in 1 month documented in this encounterSumma Health10-19-2022 Note FOLLOW-UP Name: Carol Ann Orellana : 1945 Date of Visit: 07/02/2022 LAST CLINIC VISIT: 06/10/2022 RADIATION HISTORY 76y female with a history of a right-sided IDC, s/p simple mastectomy in 2018 with pathologic stageIB TN disease, no adj chemotherapy found to have local recurrence on the chest wall s/p excision followed by adj radiotherapy to a total of 50.4 Gy in 28 fractions to the chest wall and regional nodes along with a 10 Gy in 5 fxn boost to the scar, completed on 06/13/22. Course: C1 R Cwall_LN Plan ID Fractions First Treatment Last Treatment Expected End of Treatment R Cwall BST:1 06/05/2022 06/13/2022 R CWall IMRT 04/14/2022 06/03/2022 Diagnosis: Primary, c50.911 - post mastectomy cw recurrence, trip neg abebe, Diagnosed 01/17/2022 (active) stage x, tx, n0, m0, g3, her2 neg, er neg, pr neg. ICD10: C50.911 - post mastectomy cw recurrence, trip neg abebe, Diagnosed 01/17/2022 (active). INTERVAL HISTORY The patient presents today for a routine scheduled follow up visit. Since her last visit, she states the following: - she has not seen any clinicians nor has she undergone any testing Symptomatically, the patient states they are experiencing the following: Her skin is well healed. She is experiencing occasional brief shooting pains near nipple of left breast ROS A comprehensive review of systems was negative except as stated above as well as what has been documented in the RN nursing progress report. PAST MEDICAL HISTORY - Arthritis, - bleeding disorders (anemia), - depression or mental illness, - eye problems (glaucoma/cataracts), - gastroesophageal reflux, - hypercholesterolemia, - hypertension (high blood pressure), - kidney stones, - lung problems (emphysema, pneumonia, COPD, bronchitis), - neuropathy, - previous cancers (No Chemo or Radiation for Right Breast Cancer (2018)) , - thyroid problems, - urinary problems. PAST SURGICAL HISTORY Appendectomy, bladder suspension, cataracts, cholecystectomy, hysterectomy, l1 laminectomy, left elbow repair, rt hand repair and rt knee replacement. SOCIAL HISTORY Last screened on 03/13/2022 - Yes - but has quit. Last screened on 03/13/2022 - Never drank. Patient indicated access to the following support systems: Adequate transportation available for expected visits, Lives with spouse, significant other, family, or friends, , and Patient retired. Patient quit smoking in 1982. FAMILY HISTORY Mother is - Colon Cancer. CURRENT MEDICATION LIST BYSTOLIC TABLET ORAL DICLOFENAC SODIUM GEL TOPICAL PRN LEVOTHYROXINE SODIUM TABLET ORAL Lidocaine OINTMENT PRN LYRICA CAPSULE ORAL MACROBID 1 (100 mg) CAPSULE ORAL b.i.d. MECLIZINE HYDROCHLORIDE TABLET ORAL NORCO TABLET ORAL VITAMIN D2 TABLET XANAX TABLET ORAL ALLERGIES Sulfa, Percocet, PHYSICAL EXAM Vital Signs: Performed on 03/13/2022 10:07 AM BMI - 28.531 lbs (HIGH) - Height - 61 in - Performed on 07/02/2022 11:14 AM Weight - 136.8 lbs - Temperature - 97.1 F (LOW) - Pulse - 74 / min - Respiration - 18 / min - BP - 123/ 64 mm(hg)(/LOW) - ; ECO - Ambulatory/capable of all self-care, unable to perform any work activities. Up and about more than 50% of waking hours. (ECOG) CONSTITUTIONAL: Female, who appears stated age of 76. No acute distress noted. HEENT: Normocephalic and atraumatic. PERRLA, EOMI. Sclerae are anicteric. NECK: Supple, non-tender, with no adenopathy appreciated. CARDIAC: RRR. LUNGS: CTABL. No increased work of breathing BREASTS: Examined in the sitting position. The left breast is WNL. The right chest wall demonstrates mild residual hyperpigmentation in the treatment field, no desquamation ABDOMINAL: Abdomen soft, non-distended. BACK: Non-tender to percussion. EXTREMITIES: No major deformities noted; good shoulder ROM SKIN: Skin is warm and dry. NEUROLOGIC EXAM: Alert and oriented x 3. No focal neurologic deficit. Speech is fluent. PSYCHIATRIC: Calm & appropriate IMPRESSION/RECOMMENDATIONS IMPRESSION: She is now almost 3 weeks out from completion of her radiotherapy. she is healing from the acute effects of radiation. PLAN: - continue to follow other providers per their recommendations -refer to Dr. Godfrey to establish care and discuss possible surgical options of right lateral dog ear removal - f/u in 5 months or sooner if indicated [place] is agreeable to the plan set forth. I spent a total of 20 minutes reviewing records and interpreting study results in preparation for the encounter, in direct [id number] contact with the patient which included counseling/communication of my recommendations, coordinating care following the encounter, and documenting the contents of the encounter. The patient has my contact information and Ihave urged them to contact me should any further questions or concerns arise in the interim. Thank you for the opportunity to participate in the management of this pleasant patient. I, Meredith Jeong CNP, am scribing for and in the presence of Dr. Cage. Pt was seen and examined with the NUCLEAR FUEL PROCESSING TECHNICIAN; agree with above documentation Digitally signed by Laura Cage MD 07/02/2022 1:07:36 PM cc: ASPEN RUIZ [facility]10-13-2022 History of Present illness Narrative* Zoila Valiente APRN.SOPHIA - 06/26/2022 3:15 PM EDT This video visit was performed via RealPage video visit. Patient consented to receive health care services via virtual visit for this encounter Provider Location: Non-[facility] Patient Location: Patient Home or Place of Residence Risks, benefits, and limitations of receiving care virtually were discussed with the patient. The patient expressed understanding and is willing to proceed. Chief Complaint: Pain History of Present Illness: Carol Ann Orellana is a 76 year old year old female being seen at [facility] for a evaluation and/or management of her chronic pain. The patient was last seen virtually on 05/08/2022. She states that since the last visit symptoms have been stable. She has finished thecancer treatment that was ordered. She does not want chemotherapy and will be seeing a doctor next week with further treatment options. Her medical history has not changed and she denies any hospitalstays or ER visits. Pain Location: lower back -mid back, right leg pain Radiation: arms and legs Character: aching Intensity: 6/10 Numbness/tingling: legs Burning: occasionally feet Weakness: arms Falls: a few toe Worsening factors: physical activity and cold weather Relieving factors: rest and medication Patient denies any bowel or bladder dysfunction. The patient is currently prescribed [place], lyrica, Voltaren gel, and lidocaine cream from our office. The last dose of Zohydro and [place] were taken this afternoon. The medications are partially effective. She feels the Zodyro is too strong and may be causing her falls. The OARRS report has been reviewed and is consistent with the patients medical history and medication intake. Last Urine Drug Screen (UDS): 05/16/22. The UDS has been reviewed and is consistent with medications prescribed. REVIEW OF SYSTEMS: GENERAL: No weight loss or fevers RESPIRATORY: Negative for cough CARDIOVASCULAR: Negative for chest pain GI: No nausea, vomiting, or diarrhea. MUSCULOSKELETAL: back pain and muscle pain PAST MEDICAL HISTORY Diagnosis Date Bladder infection Breast cancer (HCC) GERD (gastroesophageal reflux disease) Kidney stones Leg pain Migraines Neurogenic bladder Osteoarthrosis, unspecified whether generalized or localized, other specified sites Osteoporosis Other and unspecified disc disorder of unspecified region Intervertebral disc disorders DIAMOND (stress urinary incontinence, female) Thyroid disease Urethral hypermobility Urge incontinence Urgency of urination PAST SURGICAL HISTORY Procedure Laterality Date ANESTHESIA TOTAL KNEE REPLACEMENT APPENDECTOMY 08/1961 ARTHROTOMY KNEE W/SYNOVIAL BIOPSY ONLY Semilunar cartilage, knee - right BACK SURGERY HX 2011 BLADDER SURGERY HX 2012 BREAST SURGERY HX Right 2018 breast and 3 lymph nodes removed CARPAL TUNNEL Left 12/1979 CATARACT EXTRACTION HX CATARACT EXTRACTION HX 2009 CHOLECYSTECTOMY ELBOW SURGERY HX Left 1994 EXPLORATORY LAPAROTOMY CELIOTOMY W/WO BIOPSY SPX Laparotomy, exp - lysis of adhesions HAND SURGERY HX Right 1989 KNEE SURGERY HX Right removal of meniscus LX EXCISION OF BLADDER TUMOR 1979, 1983 OOPHORECTOMY PARTIAL/TOTAL UNI/BI Oophorectomy TOTAL ABDOMINAL HYSTERECT W/WO RMVL TUBE OVARY Hysterectomy, TOTAL KNEE REPLACEMENT 2009 FAMILY HISTORY Problem Relation Age of Onset Diabetes Mother Stroke Mother Hypertension Mother Heart Father Hypertension Father Heart disease Brother Diabetes Brother Social History Tobacco Use Smoking status: Former Years: 15.00 Types: Cigarettes Quit date: 1982 Years since quittin.8 Smokeless tobacco: Never Substance Use Topics Alcohol use: No Drug use: No Allergies: Oxycodone-Acetamino* Other: See Comments Cortisone Iv Dye [Iodinated C* Rash Montelukast Unknown, Rash Sulfa (Sulfonamide * Latex Rash Current Outpatient Medications Medication Sig nitrofurantoin macrocrystal (MACRODANTIN) 100 mg capsule TAKE 1 CAPSULE BY MOUTH TWICE DAILY for 7 (SEVEN) days ondansetron (ZOFRAN) 4 mg tablet TAKE 1 TABLET BY MOUTH EVERY 6 HOURS NEEDED FOR NAUSEA OR FOR VOMITING omeprazole (PRILOSEC) 20 mg capsule TAKE 1 CAPSULE BY MOUTH DAILY ON AN EMPTY STOMACH HYDROcodone bitartrate (HYSINGLA ER) 20 mg TP24 Take 1 tablet by mouth once daily for 30 days. Do not start before May 15, 2022. HYDROcodone-Acetaminophen (NORCO) 10-325 mg per tablet Take 1 tablet by mouth every 8 hours as needed for pain. Do not start before May 15, 2022. pregabalin (LYRICA) 150 mg capsule Take 1 capsule by mouth three times daily for 30 days. lidocaine (LIDODERM) 5 % Apply 1 Patch as directed every 24 hours. HYDROcodone bitartrate (HYSINGLA ER) 20 mg TP24 Take 1 tablet by mouth once daily for 30 days. Do not start before June 14, 2022. HYDROcodone-Acetaminophen (NORCO) 10-325 mg per tablet Take 1 tablet by mouth every 8 hours as needed. Do not start before June 14, 2022. QVAR REDIHALER 80 mcg/actuation inhaler INHALE 2 PUFFS BY MOUTH and into the lungs TWICE DAILY aspirin, enteric coated (ASPIRIN, ENTERIC COATED) 81 mg EC tablet 81 mg. albuterol HFA (PROVENTIL HFA, VENTOLIN HFA) 90 mcg/actuation inhaler INHALE 2 PUFFS BY MOUTH and into the lungs FOUR TIMES DAILY NEEDED cephALEXin (KEFLEX) 500 mg capsule Take 1 Tablet (oral) 2 times per day for 7 days ciprofloxacin HCl (CIPRO) 500 mg tablet furosemide (LASIX) 40 mg tablet 40 mg. ALPRAZolam (XANAX) 1 mg tablet Take 1 mg by mouth three times daily. rivaroxaban (XARELTO) 10 mg tablet Take 1 tablet by mouth once daily. mv, min #36-iron,carbonyl-FA (GERITOL COMPLETE) 16 mg iron- 0.38 mg tab Geritol Complete 16 mg iron- 0.38 mg tablet lidocaine-prilocaine (EMLA) 2.5-2.5 % cream 1-2 g as needed. amoxicillin-clavulanic acid (AUGMENTIN) 500-125 mg per tablet Take 1 tablet by mouth twice daily. furosemide (LASIX) 20 mg tablet Take 20 mg by mouth once daily. famotidine (PEPCID) 20 mg tablet Take 20mg tab 1 hour prior to procedure diphenhydrAMINE (BENADRYL) 25 mg capsule Take 50mg PO 1 hour prior to procedure. (Patient not taking: Reported on 01/07/2022 ) predniSONE (DELTASONE) 20 mg tablet 40 mg po [id number] x3 doses, start 24 hours prior to test. 40mg po 1 hour prior to test nitrofurantoin monohydrate and macrocrystal (MACROBID) 100 mg capsule TAKE 1 CAPSULE EVERY 12 HOURSfor 7 days. Take with meal/food. (Patient not taking: Reported on 09/26/2021) iron/vitamin B complex (GERITOL ORAL) Take by mouth. tolterodine ER (DETROL LA) 4 mg 24 hr capsule Take 1 capsule by mouth once daily. phenazopyridine (PYRIDIUM) 200 mg tablet Take 1 tablet by mouth three times daily as needed. lidocaine-methyl lisa-menthol 5-10-3 % ktop lidocaine 5 % oint fluticasone (FLOVENT HFA) 220 mcg/actuation inhaler flovent hfa 220 mcg/act aero estradiol (ESTRACE) 0.01 % (0.1 mg/gram) vaginal cream use one gram VAGINALLY three times per week methylphenidate (RITALIN) 20 mg tablet Take 20 mg by mouth twice daily. levothyroxine (SYNTHROID) 50 mcg tablet Take 50 mcg by mouth daily before breakfast. nebivolol (BYSTOLIC) 5 mg tablet Take 5 mg by mouth once daily. ergocalciferol, vitamin D2, (VITAMIN D) 50,000 unit capsule Take 50,000 Units by mouth once each week. meclizine (ANTIVERT) 25 mg tab Take 25 mg by mouth as needed. For dizziness diclofenac sodium(VOLTAREN 1 % TOPICAL GEL) apply 4 grams 4 times daily No current facility-administered medications for this visit. PHYSICAL EXAMINATION: VIDEO EXAM: (performed via video enabled technology) GENERAL: alert and appropriate, in no distress and well-hydrated, well nourished HEAD: normocephalic, no abnormality or lesion noted RESPIRATORY: breathing non-labored NEUROLOGIC: no obvious deficit ASSESSMENT: Patient is stable. Chronic pain is persistent. Medications are helping Carol Ann Orellana to have an improved quality of life. Patient compliance with Opioid Contract: patient is compliant Encounter Diagnosis ICD-10-CM 1. Chronic pain syndrome G89.4 2. 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 Z79.891 3. Lumbar radiculopathy M54.16 4. Low back pain with sciatica, sciatica laterality unspecified, unspecified back pain laterality, unspecified chronicity M54.40 PLAN: The patient understands the goal of our treatment is a reduction in pain and/or an improved level of functioning with activities of daily living. If at any time the patient does not feel the medications are helping them to achieve these goals, the medications may be discontinued. The patient reports a reduction in pain and/or an improved level of functioning with activities of daily living, denies any significant adverse effects, is compliant with the pain management agreement and there are no signs of medication misuse, abuse or diversion; therefore, the medications will be continued. Stop Hysingla- Continue [place]- increase to 120 per month Continue Lyrica Patient will call to schedule RFA when she is ready. Pt is declining procedures at this time Continue Diclofenac gel and Lidocaine ointment Continue Lidocaine patches Continue OTC stool softeners and Colace Continue LB brace Continue care with specialists F/U in 1 month Zoila Valiente APRN.CNP documented in this encounterSumma Health10-13-2022 Instructions* Patient Instructions* Zoila Valiente APRN.CNP - 06/26/2022 1:43 PM EDT Stop Hysingla- Continue [place]- increase to 120 per month Continue Lyrica Patient will call to schedule RFA when she is ready. 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 Post local excision with negative surgical margins. CD-10 Diagnosis: C50.911 - Post mastectomy CW recurrence, Trip Neg ABEBE, Diagnosed 01/17/2022 (Active)Stage X, TX, N0, M0, G3, HER2 Neg, ER Neg, SC Neg Dates of treatment: 04/14/2022 - 06/13/2022 Treatment details : [adj right chest wall & adrianna radiotherapy for recurrent breast cancer followed by scar boost ] Course: C1 R Cwall_LN Treatment Site Ref. ID Energy Dose/Fx (cGy) #Fx Dose Correction (cGy) Total Dose (cGy) Start Date End Date Elapsed Days RA IMRT R Cwall 10X 180 28 / 28 0 5,040 04/14/2022 06/03/2022 50 3D R CW Scar 10X/6X 200 5 / 5 0 1,000 06/05/2022 06/13/2022 8 Tolerance: [ The following toxicities were assessed as a 1: Dermatitis radiation - Faint erythema or dry desquamation Fatigue - Fatigue relieved by rest Breast pain - No toxicity Dry skin - No toxicity Pain - No toxicity] Remarks: Follow up in 1 month. Thank you for the opportunity to care for your patient. Digitally signed by: Laura Cage MD 06/13/2022 11:49:46 AM cc: ASPEN RUIZ DO Course: C1 R Cwall_LN Treatment Site: RA IMRT Ref. ID: R Cwall Energy: 10X Dose/Fx (cGy): 180 #Fx: 28 / 28 Dose Correction (cGy): 0 Total Dose (cGy): 5,040 Start Date: 04/14/2022 End Date: 06/03/2022 Elapsed Days: 50 Course: C1 R Cwall_LN Treatment Site: 3D Ref. ID: R CW Scar Energy: 10X/6X Dose/Fx (cGy): 200 #Fx: 5 / 5 Dose Correction (cGy): 0 Total Dose (cGy): 1,000 Start Date: 06/05/2022 End Date: 06/13/2022 Elapsed [facility]: [id number] History of Present illness Narrative* Zoila Valiente APRN.NUCLEAR FUEL PROCESSING TECHNICIAN - 05/08/2022 2:00 PM EDT This video visit was performed via RealPage video visit. Patient consented to receive health care services via virtual visit for this encounter Provider [facility] Patient Location: Patient Home or Place of Residence Risks, benefits, and limitations of receiving care virtually were discussed with the patient. The patient expressed understanding and is willing to proceed. Chief Complaint: Pain History of Present Illness: Carol Ann Orellana is a 76 year old year old female being seen at [facility] for a evaluation and/or management of her chronic pain. The patient was last seen virtually on 03/13/2022. She states that since the last visit symptoms have been worsening. She was hospitalized with a UTI for a day. Otherwise, her medical history has not changed and she denies any hospitalstays or ER visits. Pain Location: lower back -mid back, right leg pain Radiation: arms and legs Character: aching Intensity: 6/10 Numbness/tingling: legs Burning: occasionally feet Weakness: arms Falls: denies Worsening factors: physical activity and cold weather Relieving factors: rest and medication Patient denies any bowel or bladder dysfunction. The patient is currently prescribed [place], lyrica, Voltaren gel, and lidocaine cream from our office. The last dose of Zohydro and [place] were taken this afternoon. The medications are partially effective. The OARRS report has been reviewed and is consistent with the patients medical history and medication intake. Last Urine Drug Screen (UDS): 11/13/21. The UDS has been reviewed and is consistent with medications prescribed. REVIEW OF SYSTEMS: GENERAL: No weight loss or fevers RESPIRATORY: Negative for cough CARDIOVASCULAR: Negative for chest pain GI: No nausea, vomiting, or diarrhea. MUSCULOSKELETAL: back pain and muscle pain PAST MEDICAL HISTORY Diagnosis Date Bladder infection Breast cancer (HCC) GERD (gastroesophageal reflux disease) Kidney stones Leg pain Migraines Neurogenic bladder Osteoarthrosis, unspecified whether generalized or localized, other specified sites Osteoporosis Other and unspecified disc disorder of unspecified region Intervertebral disc disorders DIAMOND (stress urinary incontinence, female) Thyroid disease Urethral hypermobility Urge incontinence Urgency of urination PAST SURGICAL HISTORY Procedure Laterality Date ANESTHESIA TOTAL KNEE REPLACEMENT APPENDECTOMY 08/1961 ARTHROTOMY KNEE W/SYNOVIAL BIOPSY ONLY Semilunar cartilage, knee - right BACK SURGERY HX 2011 BLADDER SURGERY HX 2012 BREAST SURGERY HX Right 2018 breast and 3 lymph nodes removed CARPAL TUNNEL Left 12/1979 CATARACT EXTRACTION HX CATARACT EXTRACTION HX 2009 CHOLECYSTECTOMY ELBOW SURGERY HX Left 1994 EXPLORATORY LAPAROTOMY CELIOTOMY W/WO BIOPSY SPX Laparotomy, exp - lysis of adhesions HAND SURGERY HX Right 1989 KNEE SURGERY HX Right removal of meniscus LX EXCISION OF BLADDER TUMOR 1979, 1983 OOPHORECTOMY PARTIAL/TOTAL UNI/BI Oophorectomy TOTAL ABDOMINAL HYSTERECT W/WO RMVL TUBE OVARY Hysterectomy, TOTAL KNEE REPLACEMENT 2009 FAMILY HISTORY Problem Relation Age of Onset Diabetes Mother Stroke Mother Hypertension Mother Heart Father Hypertension Father Heart disease Brother Diabetes Brother Social History Tobacco Use Smoking status: Former Smoker Years: 15.00 Types: Cigarettes Quit date: 1982 Years since quittin.5 Smokeless tobacco: Never Used Substance Use Topics Alcohol use: No Drug use: No Allergies: Oxycodone-Acetamino* Other: See Comments Cortisone Iv Dye [Iodinated C* Rash Sulfa (Sulfonamide * Current Outpatient Medications Medication Sig QVAR REDIHALER 80 mcg/actuation inhaler INHALE 2 PUFFS BY MOUTH and into the lungs TWICE DAILY aspirin, enteric coated (ASPIRIN, ENTERIC COATED) 81 mg EC tablet 81 mg. HYDROcodone bitartrate (HYSINGLA ER) 20 mg TP24 Take 1 tablet by mouth once daily for 30 days. HYDROcodone-Acetaminophen (NORCO) 10-325 mg per tablet Take 1 tablet by mouth every 8 hours as needed. pregabalin (LYRICA) 150 mg capsule Take 1 capsule by mouth three times daily for 30 days. albuterol HFA (PROVENTIL HFA, VENTOLIN HFA) 90 mcg/actuation inhaler INHALE 2 PUFFS BY MOUTH and into the lungs FOUR TIMES DAILY NEEDED cephALEXin (KEFLEX) 500 mg capsule Take 1 Tablet (oral) 2 times per day for 7 days ciprofloxacin HCl (CIPRO) 500 mg tablet furosemide (LASIX) 40 mg tablet 40 mg. ALPRAZolam (XANAX) 1 mg tablet Take 1 mg by mouth three times daily. rivaroxaban (XARELTO) 10 mg tablet Take 1 tablet by mouth once daily. mv, min #36-iron,carbonyl-FA (GERITOL COMPLETE) 16 mg iron- 0.38 mg tab Geritol Complete 16 mg iron- 0.38 mg tablet lidocaine-prilocaine (EMLA) 2.5-2.5 % cream 1-2 g as needed. lidocaine (LIDODERM) 5 % Apply 1 patch to skin once a day as directed Apply patch 12 hours on and 12 hours off to affected area prn amoxicillin-clavulanic acid (AUGMENTIN) 500-125 mg per tablet Take 1 tablet by mouth twice daily. furosemide (LASIX) 20 mg tablet Take 20 mg by mouth once daily. famotidine (PEPCID) 20 mg tablet Take 20mg tab 1 hour prior to procedure diphenhydrAMINE (BENADRYL) 25 mg capsule Take 50mg PO 1 hour prior to procedure. (Patient not taking: Reported on 01/07/2022 ) predniSONE (DELTASONE) 20 mg tablet 40 mg po [id number] x3 doses, start 24 hours prior to test. 40mg po 1 hour prior to test nitrofurantoin monohydrate and macrocrystal (MACROBID) 100 mg capsule TAKE 1 CAPSULE EVERY 12 HOURSfor 7 days. Take with meal/food. (Patient not taking: Reported on 09/26/2021) iron/vitamin B complex (GERITOL ORAL) Take by mouth. tolterodine ER (DETROL LA) 4 mg 24 hr capsule Take 1 capsule by mouth once daily. mirabegron (MYRBETRIQ) 25 mg Tb24 Take 1 tablet by mouth once daily. phenazopyridine (PYRIDIUM) 200 mg tablet Take 1 tablet by mouth three times daily as needed. lidocaine-methyl lisa-menthol 5-10-3 % ktop lidocaine 5 % oint fluticasone (FLOVENT HFA) 220 mcg/actuation inhaler flovent hfa 220 mcg/act aero estradiol (ESTRACE) 0.01 % (0.1 mg/gram) vaginal cream use one gram VAGINALLY three times per week methylphenidate (RITALIN) 20 mg tablet Take 20 mg by mouth twice daily. levothyroxine (SYNTHROID) 50 mcg tablet Take 50 mcg by mouth daily before breakfast. nebivolol (BYSTOLIC) 5 mg tablet Take 5 mg by mouth once daily. ergocalciferol, vitamin D2, (VITAMIN D) 50,000 unit capsule Take 50,000 Units by mouth once each week. meclizine (ANTIVERT) 25 mg tab Take 25 mg by mouth as needed. For dizziness diclofenac sodium(VOLTAREN 1 % TOPICAL GEL) apply 4 grams 4 times daily No current facility-administered medications for this visit. PHYSICAL EXAMINATION: VIDEO EXAM: (performed via video enabled technology) GENERAL: alert and appropriate, in no distress and well-hydrated, well nourished HEAD: normocephalic, no abnormality or lesion noted RESPIRATORY: breathing non-labored NEUROLOGIC: no obvious deficit ASSESSMENT: Patient is stable. Chronic pain is persistent. Medications are helping Carol Ann Orellana to have an improved quality of life. Patient compliance with Opioid Contract: patient is compliant Encounter Diagnosis ICD-10-CM 1. Chronic pain syndrome G89.4 HYDROcodone bitartrate (HYSINGLA ER) 20 mg TP24 HYDROcodone-Acetaminophen (NORCO) 10-325 mg per tablet pregabalin (LYRICA) 150 mg capsule HYDROcodone bitartrate (HYSINGLA ER) 20 mg TP24 HYDROcodone-Acetaminophen (NORCO) 10-325 mg per tablet 2. 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 Z79.891 PAIN PANEL, UR QUANT 3. Lumbar radiculopathy M54.16 4. Chronic pain of left ankle M25.572 G89.29 5. Arthropathy of lumbar facet joint M47.816 PLAN: The patient understands the goal of our treatment is a reduction in pain and/or an improved level of functioning with activities of daily living. If at any time the patient does not feel the medications are helping them to achieve these goals, the medications may be discontinued. The patient reports a reduction in pain and/or an improved level of functioning with activities of daily living, denies any significant adverse effects, is compliant with the pain management agreement and there are no signs of medication misuse, abuse or diversion; therefore, the medications will be continued. Continue Hysingla- Continue [place] Continue Lyrica Patient will call to schedule RFA when she is ready. Pt is declining procedures at this time Continue Diclofenac gel and Lidocaine ointment Continue Lidocaine patches Continue OTC stool softeners and Colace Continue LB brace Continue care with specialists F/U in 2 months Zoila Valiente APRN.CNP [facility]* Patient Instructions* Zoila Valiente APRN.CNP - 05/08/2022 1:16 PM EDT Urine drug Screen ordered, patient will present to the [facility] to have this done next week Continue Hysingla Continue [place] Continue Lyrica Patient will call to schedule RFA when she is ready. Pt is declining procedures at this time Continue Diclofenac gel and Lidocaine ointment Continue Lidocaine patches Continue OTC stool softeners and Colace Continue LB brace Continue care with specialists F/U in 2 months [facility] Discharge instructions Patient Education 03/26/2022 02:50:28 Hyponatremia Hyponatremia Hyponatremia means low sodium levels in the blood. This condition most often occurs after prolongedvomiting or diarrhea, which causes your body to lose too much water and sodium. It can also result from drinking excess amounts of water or the use of diuretics (water pills). Rarely, it can be associated with disorders of your endocrine system, as side effects of illicit drug use (ecstasy), as a complication of some cancers especially small cell lung cancer, or as a complication of renal and liver disease or heart failure. Mild hyponatremia causes no symptoms. It is only discovered with a blood test. As sodium levels in the blood decreases, symptoms begin to appear. This includes weakness, confusion, muscle cramping and seizures. Home care Reduce your daily water intake until the problem is corrected. If you have been taking diuretics, you may be asked to stop taking them for a short time. If you are having symptoms of weakness or confusion, do not drive or operate dangerous machinery until symptoms resolve. If your sodium levels are too low to be managed at home with the above recommendations, you will beasked to go to the hospital to have your sodium replaced through your vein. Follow-up care Follow up with your healthcare provider for a repeat blood test within the next week, or as advised. When to seek medical advice Call your healthcare provider if any of the following occur: Increasing weakness Dizziness Irregular heartbeat, extra beats or very fast heart rate Increasing confusion Fainting or loss of consciousness Seizure [id number] [employer] [address] [place] [address], [place] [address]. All rights reserved. This information is not intended as a substitute for professional medical care. Always follow yourhealthcare professional's instructions. 03/26/2022 02:50:21 Vomiting (Adult) Vomiting (Adult) Vomiting is a common symptom that may be due to different causes. These include gastroenteritis ("stomach flu"), food poisoning and gastritis. There are other more serious causes of vomiting which may be hard to diagnose early in the illness. Therefore, it is important to watch for the warning signs listed below. The main danger from repeated vomiting is dehydration. This is due to excess loss of water and minerals from the body. When this occurs, your body fluids must be replaced. Home care If symptoms are severe, rest at home for the next 24 hours. Because your symptoms may be from an infection, wash your hands often and well. If soap and water are not available, use alcohol-based shampooer to keep from spreading the infection to others. Wash your hands for at least 20 seconds. Humming the happy birthday song twice while you wash is aneasy way to make sure you've washed for 20 seconds. Wash your hands after using the toilet, before and after preparing food, before eating food, after changing a diaper, cleaning a wound, caring for a sick person, and blowing your nose, coughing, or sneezing. You should also wash your hands after caring for someone who is sick, touching pet food, ortreats, and touching an animal, or animal waste. You may use acetaminophen or NSAID medicines like ibuprofen or naproxen to control fever, unless another medicine was prescribed. If you have chronic liver or kidney disease or ever had a stomach ulcer or gastrointestinal bleeding, talk with your doctor before using these medicines. Aspirin should never be used in anyone under 18 years of age who is ill with a fever. It may cause severe liver damage. Don't use NSAID medicines if you are already taking one for another condition (like arthritis) or are on aspirin (such as for heart disease, or after a stroke) Don't use tobacco and or drink alcohol, which may worsen your symptoms. If medicines for vomiting were prescribed, take as directed. Once vomiting stops, then follow these guidelines: During the first 12 to 24 hours follow the diet below: Fruit juices. Apple, grape juice, clear fruit drinks, and electrolyte replacement drinks. Beverages. Soft drinks without caffeine; mineral water (plain or flavored), decaffeinated tea and coffee. Soups. Clear broth and bouillon Desserts. Plain gelatin, ice pops, and fruit juice bars. As you feel better, you may add 6 to 8 ounces of yogurt per day. During the next 24 hours you may add the following to the above: Hot cereal, plain toast, bread, rolls, crackers Plain noodles, rice, mashed potatoes, chicken noodle or rice soup Unsweetened canned fruit such as applesauce, bananas (avoid pineapple and citrus) Limit caffeine and chocolate. No spices or seasonings except salt. During the next 24 hours: Gradually resume a normal diet, as you feel better and your symptoms lessen. Follow-up care Follow up with your healthcare provider, or as advised. When to seek medical advice Call your healthcare provider right away if any of these occur: Constant right-sided lower belly pain or increasing general belly pain Continued vomiting (unable to keep liquids down) for 24 hours Vomiting blood or coffee grounds Swollen belly Frequent diarrhea (more than 5 times a day); blood (red or black color) or mucus in diarrhea Reduced urine output or extreme thirst Weakness, dizziness or fainting Unusually drowsy or confused Fever of 100.4 F (38 C) oral or higher, or as directed Yellow color of the eyes or skin [id number] [employer] [address] [place] [address]. All rights reserved. This information is not intended as a substitute for professional medical care. Always follow yourhealthcare professional's instructions. 03/26/2022 02:50:19 Diet for Vomiting or Diarrhea (Adult) Diet for Vomiting or Diarrhea (Adult) Your symptoms may return or get worse after eating certain foods listed below. If this happens, stop eating these foods until your symptoms ease and you feel better. Once the vomiting stops, follow the steps below. During the first 12 to 24 hours During the first 12 to 24 hours, follow this diet: Drinks. Plain water, sport drinks like electrolyte solutions, soft drinks without caffeine, mineralwater (plain or flavored), clear fruit juices, and decaffeinated tea and coffee. Soups. Clear broth. Desserts. Plain gelatin, popsicles, and fruit juice bars. As you feel better, you may add 6 to 8 ounces of yogurt per day. If you have diarrhea, don't have foods or drinks that contain sugar, high-fructose corn syrup, or sugar alcohols. During the next 24 hours During the next 24 hours you may add the following to the above: Hot cereal, plain toast, bread, rolls, and crackers Plain noodles, rice, mashed potatoes, and chicken noodle or rice soup Unsweetened canned fruit (but not pineapple) and bananas Don't eat more than 15 grams of fat a day. Do this by staying away from margarine, butter, oils, mayonnaise, sauces, gravies, fried foods, peanut butter, meat, poultry, and fish. Don't eat much fiber. Stay away from raw or cooked vegetables, fresh fruits (except bananas), and bran cereals. Limit how much caffeine and chocolate you have. Do not use any spices or seasonings except salt. During the next 24 hours Slowly go back to your normal diet, as you feel better and your symptoms ease. [id number] [employer] [address] [place] [address]. All rights reserved. This information is not intended as a substitute for professional medical care. Always follow yourhealthcare professional's instructions. Follow Up Care 03/25/2022 16:06:24 With:RICARDO RUIZ DO Address: [address] [place] [address]- [phone] When:2-4 days [facility] 07-13-2022 Emergency department Discharge summary Discharge Instructions Thank you for allowing [facility] to assist you with your healthcare needs. The following is importantdischarge information regarding your hospital visit. Diagnosis from Today's Visit REED - Headache Urination painful What to Do Next Instructions from Your Care Team No qualifying data available. Post Acute Orders No qualifying data available. You Need to Schedule the Following Appointments Follow Up with RICARDO RUIZ DO When Within 2-4 days Where: [place] [address]- [phone] Allergies sulfa drug Medications Please ask your primary doctor or pharmacist before taking any other medication not listed, including over the counter drugs, herbal medications, vitamins and or supplements as they may interact withyour home medications. What How Much When Instructions Last Dose New famotidine (Pepcid 20 mg oral tablet) 1 tab(s) by mouth Two (2) times a day Duration: 10 Days Printed Prescription New ondansetron (Zofran 4 mg oral tablet) 1 tab(s) by mouth Every 6 hours as needed for Nausea/Vomiting Duration: 3 Days Printed Prescription Please take this list to your next doctor s visit. Bring all medications you take, including over the counter medications, herbals and other supplements with you to your doctor s visit. Patients and families are reminded to discard old lists and to update any records with all medication providers or retail pharmacies. Education Materials Hyponatremia Hyponatremia means low sodium levels in the blood. This condition most often occurs after prolongedvomiting or diarrhea, which causes your body to lose too much water and sodium. It can also result from drinking excess amounts of water or the use of diuretics (water pills). Rarely, it can be associated with disorders of your endocrine system, as side effects of illicit drug use (ecstasy), as a complication of some cancers especially small cell lung cancer, or as a complication of renal and liver disease or heart failure. Mild hyponatremia causes no symptoms. It is only discovered with a blood test. As sodium levels in the blood decreases, symptoms begin to appear. This includes weakness, confusion, muscle cramping and seizures. Home care Reduce your daily water intake until the problem is corrected. If you have been taking diuretics, you may be asked to stop taking them for a short time. If you are having symptoms of weakness or confusion, do not drive or operate dangerous machinery until symptoms resolve. If your sodium levels are too low to be managed at home with the above recommendations, you will beasked to go to the hospital to have your sodium replaced through your vein. Follow-up care Follow up with your healthcare provider for a repeat blood test within the next week, or as advised. When to seek medical advice Call your healthcare provider if any of the following occur: Increasing weakness Dizziness Irregular heartbeat, extra beats or very fast heart rate Increasing confusion Fainting or loss of consciousness Seizure [id number] [employer] [address] [place] [address]. All rights reserved. This information is not intended as a substitute for professional medical care. Always follow yourhealthcare professional's instructions. Vomiting (Adult) Vomiting is a common symptom that may be due to different causes. These include gastroenteritis ("stomach flu"), food poisoning and gastritis. There are other more serious causes of vomiting which may be hard to diagnose early in the illness. Therefore, it is important to watch for the warning signs listed below. The main danger from repeated vomiting is dehydration. This is due to excess loss of water and minerals from the body. When this occurs, your body fluids must be replaced. Home care If symptoms are severe, rest at home for the next 24 hours. Because your symptoms may be from an infection, wash your hands often and well. If soap and water are not available, use alcohol-based shampooer to keep from spreading the infection to others. Wash your hands for at least 20 seconds. Humming the happy birthday song twice while you wash is aneasy way to make sure you've washed for 20 seconds. Wash your hands after using the toilet, before and after preparing food, before eating food, after changing a diaper, cleaning a wound, caring for a sick person, and blowing your nose, coughing, or sneezing. You should also wash your hands after caring for someone who is sick, touching pet food, ortreats, and touching an animal, or animal waste. You may use acetaminophen or NSAID medicines like ibuprofen or naproxen to control fever, unless another medicine was prescribed. If you have chronic liver or kidney disease or ever had a stomach ulcer or gastrointestinal bleeding, talk with your doctor before using these medicines. Aspirin should never be used in anyone under 18 years of age who is ill with a fever. It may cause severe liver damage. Don't use NSAID medicines if you are already taking one for another condition (like arthritis) or are on aspirin (such as for heart disease, or after a stroke) Don't use tobacco and or drink alcohol, which may worsen your symptoms. If medicines for vomiting were prescribed, take as directed. Once vomiting stops, then follow these guidelines: During the first 12 to 24 hours follow the diet below: Fruit juices. Apple, grape juice, clear fruit drinks, and electrolyte replacement drinks. Beverages. Soft drinks without caffeine; mineral water (plain or flavored), decaffeinated tea and coffee. Soups. Clear broth and bouillon Desserts. Plain gelatin, ice pops, and fruit juice bars. As you feel better, you may add 6 to 8 ounces of yogurt per day. During the next 24 hours you may add the following to the above: Hot cereal, plain toast, bread, rolls, crackers Plain noodles, rice, mashed potatoes, chicken noodle or rice soup Unsweetened canned fruit such as applesauce, bananas (avoid pineapple and citrus) Limit caffeine and chocolate. No spices or seasonings except salt. During the next 24 hours: Gradually resume a normal diet, as you feel better and your symptoms lessen. Follow-up care Follow up with your healthcare provider, or as advised. When to seek medical advice Call your healthcare provider right away if any of these occur: Constant right-sided lower belly pain or increasing general belly pain Continued vomiting (unable to keep liquids down) for 24 hours Vomiting blood or coffee grounds Swollen belly Frequent diarrhea (more than 5 times a day); blood (red or black color) or mucus in diarrhea Reduced urine output or extreme thirst Weakness, dizziness or fainting Unusually drowsy or confused Fever of 100.4 F (38 C) oral or higher, or as directed Yellow color of the eyes or skin [id number] [employer] [address] [place] [address]. All rights reserved. This information is not intended as a substitute for professional medical care. Always follow yourhealthcare professional's instructions. Diet for Vomiting or Diarrhea (Adult) Your symptoms may return or get worse after eating certain foods listed below. If this happens, stop eating these foods until your symptoms ease and you feel better. Once the vomiting stops, follow the steps below. During the first 12 to 24 hours During the first 12 to 24 hours, follow this diet: Drinks. Plain water, sport drinks like electrolyte solutions, soft drinks without caffeine, mineralwater (plain or flavored), clear fruit juices, and decaffeinated tea and coffee. Soups. Clear broth. Desserts. Plain gelatin, popsicles, and fruit juice bars. As you feel better, you may add 6 to 8 ounces of yogurt per day. If you have diarrhea, don't have foods or drinks that contain sugar, high-fructose corn syrup, or sugar alcohols. During the next 24 hours During the next 24 hours you may add the following to the above: Hot cereal, plain toast, bread, rolls, and crackers Plain noodles, rice, mashed potatoes, and chicken noodle or rice soup Unsweetened canned fruit (but not pineapple) and bananas Don't eat more than 15 grams of fat a day. Do this by staying away from margarine, butter, oils, mayonnaise, sauces, gravies, fried foods, peanut butter, meat, poultry, and fish. Don't eat much fiber. Stay away from raw or cooked vegetables, fresh fruits (except bananas), and bran cereals. Limit how much caffeine and chocolate you have. Do not use any spices or seasonings except salt. During the next 24 hours Slowly go back to your normal diet, as you feel better and your symptoms ease. [phone] [employer] [address] [place] [address]. All rights reserved. This information is not intended as a substitute for professional medical care. Always follow yourhealthcare professional's instructions. Additional Information VACCINATE! IT SAVES LIVES! Members of the community who have not yet received the COVID-19 vaccine and would like to receive it can visit one of [facility] vaccine clinics. There are many vaccine clinic locations within the [facility]. For locations and available times, please visit [email or web address]. It is important to note that some COVID mobile vaccine clinics are held outdoors and may be canceled in rainy orstormy conditions. To learn more about pediatric vaccinations (ages 5-11), we invite you to visit the [facility] webpage. [email or web address] learn more about the COVID-19 vaccine, we invite you to visit the [facility] website for a list of frequently asked questions. [email or web address] [facility] [facility] Patient Portal Access Instructions: Stay connected with your healthcare team and access your personal medical information anytime with the [facility] [employer] Patient Portal. If you would like a full copy of your medical records please contact the [facility] Medical Records Department Thursday through Thursday between 8a.m. and 4:30p.m. Please follow the directions below to access the portal: 1.Access the email account you provided upon registration to the hospital.2.Look for an invitation email from [facility].3.Open the email and access the invitation link: Accept Invitation to [facility]4.Fill in the required drew to create your account. Sign into [email or web address] with your username and password that you created in the above steps to stay up to date. You can then view a summary of results, a summary of your visits, and the ability to download your summaries to your computer or send the information securely to a physician. Remember that your healthcare information is confidential, so carefully consider who you will allow to register on the [facility] [employer] Patient Portal for access to your information. You can also access the [facility] Patient Portal on the [employer]. Simply click on "Health Records" under "[employer]" and then click on the [facility] logo. HOW TO SAFELY DISPOSE OF PRESCRIPTION MEDICATIONS Please use one of the following methods to safely dispose of your unused medications. 1.Use a drug disposal kit: the drug disposal pouch allows you to safely discard your old and unuseddrugs. Ask your nurse to give you one when you are discharged.2.Visit a local take-back location: Many local pharmacies and police departments have programs that collect old and unwanted prescriptiondrugs. Call your local pharmacy or go to [email or web address] to find one close to you.3.Make use of household items: Use cat litter or old coffee grounds to dispose medications if other options arenot available. Mix your drugs with these household products, seal them in an airtight container andthrow it into the garbage. Call [facility]: [phone] to be sure your drugs can be disposed of in this way. Some medicines may require a different approach.4.Never flush your medications down the toilet. IF YOU HAVE BEEN PRESCRIBED AN OPIOIDS FOR PAIN If you have been prescribed an opioid (such as hydrocodone, oxycodone or morphine), it is critical to understand the possible side effects and risks of opioid pain medications. Even when taken as directed, opioids can have several side effects including: Tolerance, meaning you might need to take more of a medication for the same pain relief. Nausea, vomiting and/or constipation. Sleepiness, dizziness, dry mouth, confusion, depression or itching. Physical dependence, meaning you have withdrawal symptoms when a medication is stopped ? this can develop within a few days. KNOW YOUR RESPONSIBILITIES It is important to know exactly how much and how often to take the opioid pain medications you are prescribed. Never take opioids in higher amounts or more often than prescribed. Do not combine opioids with alcohol or other drugs that cause drowsiness, such as benzodiazepines, also known as benzos,including diazepam and alprazolam, muscle relaxants or sleep aids. Never sell or share prescriptionopioids. This is illegal. Store opioids in a secure place and out of reach of others (including children, family, friends and visitors). The last page(s) of this document has been signed and retained as a CHART COPY Signatures Patient Education Materials Hyponatremia Vomiting (Adult) Diet for Vomiting or Diarrhea (Adult) Medication Leaflets My discharge plan and instructions have been reviewed and explained to me and I,CAROL ANN ORELLANA understand my current condition and have read and understand these discharge instructions. I have received a written copy of the plan/instructions. If I have questions, I am aware that I should contact my doctor. Patient/Drug Safety Data Management Specialist Signature: Date/Time: Relationship to Patient: Witness Name/Signature: [id number] Note ORIGINAL EXAMINATION: ONE XRAY VIEW OF THE CHEST 03/25/2022 6:44 pm COMPARISON: CT thorax 02/04/2022 HISTORY: ORDERING SYSTEM PROVIDED HISTORY: Reason for Exam: weak FINDINGS: The cardiomediastinal silhouette appears within normal limits. No focal consolidation, vascular congestion, pleural effusion or pneumothorax. Streaky bibasilar opacities most likely reflect mild subsegmental atelectasis. No acute osseous abnormality. Surgical clips project over the right lower chest and right axilla. IMPRESSION: Minimal bibasilar subsegmental atelectasis. Otherwise focal consolidation or pleural effusion. I have personally reviewed the images of this examination and agree with the resident's findings and interpretation. Interpreted by: Ernie Vance Preliminary Report By: Vanda Platt Electronically signed By Ernie Vance Dictated Date: 03/25/2022 6:45:35 PM Prelim Date: 03/25/2022 6:48:21 PM Sign Date: 03/25/2022 6:55:39 PM [facility]ing Provider: [facility] Note ORIGINAL EXAMINATION: ONE XRAY VIEW OF THE CHEST 03/25/2022 6:44 pm COMPARISON: CT thorax 02/04/2022 HISTORY: ORDERING SYSTEM PROVIDED HISTORY: Reason for Exam: weak FINDINGS: The cardiomediastinal silhouette appears within normal limits. No focal consolidation, vascular congestion, pleural effusion or pneumothorax. Streaky bibasilar opacities most likely reflect mild subsegmental atelectasis. No acute osseous abnormality. Surgical clips project over the right lower chest and right axilla. IMPRESSION: Minimal bibasilar subsegmental atelectasis. Otherwise focal consolidation or pleural effusion. I have personally reviewed the images of this examination and agree with the resident's findings and interpretation. Interpreted by: Ernie Vance Preliminary Report By: Vanda Platt Electronically signed By Ernie Vance Dictated Date: 03/25/2022 6:45:35 PM Prelim Date: 03/25/2022 6:48:21 PM Sign Date: 03/25/2022 6:55:39 PM Ordering Provider: [facility]06-30-2022 History of Present illness Narrative* Zoila Valiente APRN.NUCLEAR FUEL PROCESSING TECHNICIAN - 03/13/2022 2:00 PM EDT DATE: March 13, 2022 This video visit was performed via [employer] video visit. Patient consented to receive health care services via virtual visit for this encounter [facility] Patient Location: Patient Home or Place of Residence Risks, benefits, and limitations of receiving care virtually were discussed with the patient. The patient expressed understanding and is willing to proceed. Chief Complaint: Pain History of Present Illness: Carol Ann Orellana is a 76 year old year old female being seen at [facility] for a evaluation and/or management of their chronic pain. She states that since the last visit symptoms have been persistent and stable. She currently has a UTI and was seen at the Emergency[facility] for it. She was diagnosed with breast cancer three years ago but was told she did not require any treatment. The mass had grown quite a bit so she went for follow up and was told she has an aggressive form and should have received treatment then and definitely needs radiation now. The patient was last seen here in the office on 09/03/21, last virtual visit 01/09/22. Pain Location: lower back -mid back, right leg pain Radiation: arms and legs Character: aching Intensity: 9/10 Numbness/tingling: legs Burning: occasionally feet Weakness: arms Falls: denies Worsening factors: physical activity and cold weather Relieving factors: rest and medication Patient denies any bowel or bladder dysfunction. Since the last office visit the patients medical history has not changed. The patient denies any new diagnoses, hospital visits or ER visits. The patient is currently prescribed [place], lyrica, Voltaren gel, and lidocaine cream from our office. The last dose of [place] was taken this afternoon. The medications are partially effective. The patient denies vomiting, constipation,rashes, drowsiness,weight gain, weight loss,dizziness,and fatigue. The OARRS report has been reviewed and is consistent with the patients medical history and medication intake. Last Urine Drug Screen (UDS): 11/13/21. The UDS has been reviewed and is consistent with medications prescribed. REVIEW OF SYSTEMS: GENERAL: No weight loss, malaise or fevers RESPIRATORY: Negative for cough, hemoptysis, wheezing, COPD, dyspnea or shortness of breath. CARDIOVASCULAR: Negative for chest pain, leg swelling, hypertension, CHF or palpitations GI: No nausea, vomiting, or diarrhea. MUSCULOSKELETAL: back pain and muscle pain PAST MEDICAL HISTORY Diagnosis Date Bladder infection Breast cancer (HCC) GERD (gastroesophageal reflux disease) Kidney stones Leg pain Migraines Neurogenic bladder Osteoarthrosis, unspecified whether generalized or localized, other specified sites Osteoporosis Other and unspecified disc disorder of unspecified region Intervertebral disc disorders DIAMOND (stress urinary incontinence, female) Thyroid disease Urethral hypermobility Urge incontinence Urgency of urination PAST SURGICAL HISTORY Procedure Laterality Date ANESTHESIA TOTAL KNEE REPLACEMENT APPENDECTOMY 08/1961 ARTHROTOMY KNEE W/SYNOVIAL BIOPSY ONLY Semilunar cartilage, knee - right BACK SURGERY HX 2011 BLADDER SURGERY HX 2012 BREAST SURGERY HX Right 2018 breast and 3 lymph nodes removed CARPAL TUNNEL Left 12/1979 CATARACT EXTRACTION HX CATARACT EXTRACTION HX 2009 CHOLECYSTECTOMY ELBOW SURGERY HX Left 1994 EXPLORATORY LAPAROTOMY CELIOTOMY W/WO BIOPSY SPX Laparotomy, exp - lysis of adhesions HAND SURGERY HX Right 1989 KNEE SURGERY HX Right removal of meniscus LX EXCISION OF BLADDER TUMOR 1979, 1983 OOPHORECTOMY PARTIAL/TOTAL UNI/BI Oophorectomy TOTAL ABDOMINAL HYSTERECT W/WO RMVL TUBE OVARY Hysterectomy, TOTAL KNEE REPLACEMENT 2009 FAMILY HISTORY Problem Relation Age of Onset Diabetes Mother Stroke Mother Hypertension Mother Heart Father Hypertension Father Heart disease Brother Diabetes Brother Social History Tobacco Use Smoking status: Former Smoker Years: 15.00 Types: Cigarettes Quit date: 1982 Years since quittin.5 Smokeless tobacco: Never Used Substance Use Topics Alcohol use: No Drug use: No Allergies: Oxycodone-Acetamino* Other: See Comments Cortisone Iv Dye [Iodinated C* Rash Sulfa (Sulfonamide * Current Outpatient Medications Medication Sig furosemide (LASIX) 40 mg tablet 40 mg. HYDROcodone bitartrate (HYSINGLA ER) 20 mg TP24 Take 1 tablet by mouth once daily for 30 days. [START ON 03/15/2022] pregabalin (LYRICA) 150 mg capsule Take 1 capsule by mouth three times daily for 30 days. Do not start before March 15, 2022. [START ON 03/15/2022] HYDROcodone-Acetaminophen (NORCO) 10-325 mg per tablet Take 1 tablet by mouth every 8 hours as needed. Do not start before March 15, 2022. albuterol HFA (PROVENTIL HFA, VENTOLIN HFA) 90 mcg/actuation inhaler INHALE 2 PUFFS BY MOUTH and into the lungs FOUR TIMES DAILY NEEDED cephALEXin (KEFLEX) 500 mg capsule Take 1 Tablet (oral) 2 times per day for 7 days ciprofloxacin HCl (CIPRO) 500 mg tablet ALPRAZolam (XANAX) 1 mg tablet Take 1 mg by mouth three times daily. rivaroxaban (XARELTO) 10 mg tablet Take 1 tablet by mouth once daily. mv, min #36-iron,carbonyl-FA (GERITOL COMPLETE) 16 mg iron- 0.38 mg tab Geritol Complete 16 mg iron- 0.38 mg tablet lidocaine-prilocaine (EMLA) 2.5-2.5 % cream 1-2 g as needed. lidocaine (LIDODERM) 5 % Apply 1 patch to skin once a day as directed Apply patch 12 hours on and 12 hours off to affected area prn amoxicillin-clavulanic acid (AUGMENTIN) 500-125 mg per tablet Take 1 tablet by mouth twice daily. furosemide (LASIX) 20 mg tablet Take 20 mg by mouth once daily. famotidine (PEPCID) 20 mg tablet Take 20mg tab 1 hour prior to procedure diphenhydrAMINE (BENADRYL) 25 mg capsule Take 50mg PO 1 hour prior to procedure. (Patient not taking: Reported on 01/07/2022 ) predniSONE (DELTASONE) 20 mg tablet 40 mg po [id number] x3 doses, start 24 hours prior to test. 40mg po 1 hour prior to test nitrofurantoin monohydrate and macrocrystal (MACROBID) 100 mg capsule TAKE 1 CAPSULE EVERY 12 HOURSfor 7 days. Take with meal/food. (Patient not taking: Reported on 09/26/2021) iron/vitamin B complex (GERITOL ORAL) Take by mouth. tolterodine ER (DETROL LA) 4 mg 24 hr capsule Take 1 capsule by mouth once daily. mirabegron (MYRBETRIQ) 25 mg Tb24 Take 1 tablet by mouth once daily. phenazopyridine (PYRIDIUM) 200 mg tablet Take 1 tablet by mouth three times daily as needed. lidocaine-methyl lisa-menthol 5-10-3 % ktop lidocaine 5 % oint fluticasone (FLOVENT HFA) 220 mcg/actuation inhaler flovent hfa 220 mcg/act aero estradiol (ESTRACE) 0.01 % (0.1 mg/gram) vaginal cream use one gram VAGINALLY three times per week methylphenidate (RITALIN) 20 mg tablet Take 20 mg by mouth twice daily. levothyroxine (SYNTHROID) 50 mcg tablet Take 50 mcg by mouth daily before breakfast. nebivolol (BYSTOLIC) 5 mg tablet Take 5 mg by mouth once daily. ergocalciferol, vitamin D2, (VITAMIN D) 50,000 unit capsule Take 50,000 Units by mouth once each week. meclizine (ANTIVERT) 25 mg tab Take 25 mg by mouth as needed. For dizziness diclofenac sodium(VOLTAREN 1 % TOPICAL GEL) apply 4 grams 4 times daily No current facility-administered medications for this visit. PHYSICAL EXAMINATION: VIDEO EXAM: (performed via video enabled technology) GENERAL: alert and appropriate, in no distress and well-hydrated, well nourished HEAD: normocephalic, no abnormality or lesion noted RESPIRATORY: breathing non-labored NEUROLOGIC: no obvious deficit ASSESSMENT: Patient is stable. Chronic pain is persistent. Medications are helping Carol Ann Orellana to have an improved quality of life. Patient compliance with Opioid Contract: patient is compliant Encounter Diagnosis ICD-10-CM 1. Chronic pain syndrome G89.4 HYDROcodone bitartrate (HYSINGLA ER) 20 mg TP24 pregabalin (LYRICA) 150 mg capsule HYDROcodone-Acetaminophen (NORCO) 10-325 mg per tablet 2. Lumbar radiculopathy M54.16 3. Chronic pain disorder G89.4 4. Chronic pain of left ankle M25.572 G89.29 5. Degeneration of intervertebral disc of lumbar region M51.36 6. Arthropathy of lumbar facet joint M47.816 7. Low back pain with sciatica, sciatica laterality unspecified, unspecified back pain laterality, unspecified chronicity M54.40 8. 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 Lumbar post-laminectomy syndrome M96.1 PLAN: The patient understands the goal of our treatment is a reduction in pain and/or an improved level of functioning with activities of daily living. If at any time the patient does not feel the medications are helping them to achieve these goals, the medications may be discontinued. The patient reports a reduction in pain and/or an improved level of functioning with activities of daily living, denies any significant adverse effects, is compliant with the pain management agreement and there are no signs of medication misuse, abuse or diversion; therefore, the medications will be continued. Trial of Hysingla- She will contact us via [facility] to let us know how she is doing on the medication Continue [place] Continue Lyrica Patient will call to schedule RFA when she is ready. Pt is declining procedures at this time Continue Diclofenac gel and Lidocaine ointment Continue Lidocaine patches Continue OTC stool softeners and Colace Continue LB brace Continue care with specialists F/U in 2 months Zoila Valiente APRN.SOPHIA [facility] Instructions* Patient Instructions* Zoila Valiente APRN.CNP - 03/13/2022 2:00 PM EDT Trial of Hysingla- She will contact us via [employer] to let us know how she is doing on the medication Continue [place] Continue Lyrica Patient will call to schedule RFA when she is ready. 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 Post local excision with negative surgical margins. ICD10 Dx: C50.911 - Post mastectomy CW recurrence, Trip Neg ABEBE, Diagnosed 01/17/2022 (Active) Stage X, TX, N0, M0, G3, HER2 Neg, ER Neg, SC Neg History of Present Illness: Patient is a 76-year-old female with multiple medical comorbidities including history of a PE and pulmonary compromise on continuous oxygen. She has a history of undergoing a right simple mastectomy in 2018 for a stage I (T1N0) invasive ductal carcinoma. [place] lymph node biopsy at that time was negative. The tumor was found to be triple negative. Medical oncology evaluation at that time did not recommend chemotherapy due to medical comorbidities. She did well until recently noting a nodule developing on the anterior left lateral right chest wall. Dr. Avina performed a local excision of the chest wall lesion on January 17, 2022. The specimen measured 3.2 x 2 x 1.1 cm. Final pathology confirmed a poorly differentiated adenocarcinoma consistent with breast primary. The tumor was ER/SC and HER2 negative. Closest surgical margin was 0.3 cm from the inked margin. Recent imaging including CT scan of the chest, abdomen, and pelvis as well as bone scan revealed no suspicious findings. Currently, the patient is in her usual state of health. She does use continuous oxygen and has limited mobility due to peripheral neuropathy related to fibromyalgia. She is seen now in radiation therapy for further discussion of options. Past Medical History: - Arthritis, - bleeding disorders (anemia), - depression or mental illness, -eye problems (glaucoma/cataracts), - gastroesophageal reflux, - hypercholesterolemia, - hypertension (high blood pressure), - kidney stones, - lung problems (emphysema, pneumonia, COPD, bronchitis), - neuropathy, - previous cancers (No Chemo or Radiation for Right Breast Cancer (2018)) , - thyroid problems, - urinary problems. Medications: BYSTOLIC, tablet oral, DICLOFENAC SODIUM, gel topical prn, KEFLEX, capsule oral, LEVOTHYROXINE SODIUM, tablet oral, Lidocaine, ointment prn, LYRICA, capsule oral, MECLIZINE HYDROCHLORIDE, tablet oral, NORCO, tablet oral, VITAMIN D2, tablet and XANAX, tablet oral. Allergies: Sulfa, Percocet. Family History: Mother is - Colon Cancer. Social History: Last screened on 03/13/2022 - Yes - but has quit. Last screened on 03/13/2022 - Neverdrank. Patient indicated access to the following support systems: Adequate transportation availablefor expected visits, Lives with spouse, significant other, family, or friends, , and Patientretired. Patient quit smoking in 1982. Procedure/Surgical History: Appendectomy, bladder suspension, cataracts, cholecystectomy, hysterectomy, l1 laminectomy, left elbow repair, rt hand repair and rt knee replacement. Gynecological History: Menopause age of Menses age of Review of Systems: Constitutional Complains of fatigue. Denies lack of appetite, fever, lethargy, malaise, night sweats, rigors / chills and change in weight. Allergic/Immunologic Denies allergies and adverse reactions. Head Denies alopecia. Eyes Complains of visual difficulties. Denies blurred vision, double vision, lacrimation, night blindness and photophobia. ENMT Denies dysphagia, ear pain, epistaxis, esophagitis, problems with hearing, mouth dryness, oral bleeding, otitis, sinusitis, sputum production, stomatitis, altered taste and tinnitus. Neck Denies neck masses, muscle weakness, neck pain, decreased range of motion and swelling of the neck. Integumentary Denies alopecia, blistering, bruising, dry skin, facial burning, nail changes, photosensitivity, pruritus, rash and urticaria. Breasts Denies breast masses, nipple discharge, nipple inversion and pain. Cardiovascular Complains of dyspnea Patient on 2L of oxygen at home and edema. Denies arrhythmias, chest pain, orthopnea and palpitations. Respiratory Denies cough, dyspnea, hemoptysis, hiccoughs, pleuritic chest pain and wheezing. Gastrointestinal Complains of constipation, diarrhea and heartburn / dyspepsia. Denies abdominal pain, change in bowel habits, hematemesis, hematochezia, hemorrhoids, melena / GI bleeding, nausea, pain / cramping, satiety and vomiting. Genitourinary (F) Complains of dysuria and frequency. Denies genital masses, hematuria, incontinence, nocturia, renalstone disease, problems with sexual function, urgency, urine color change, vaginal discharge / bleeding and vaginal spotting. Musculoskeletal Complains of arthritis and muscle weakness. Denies bone pain, joint pain and decreased range of motion. Neurologic Complains of dizziness. Denies disorientation, abnormal gait, headaches, insomnia, memory loss, motor weakness, sensory problems, paralysis, seizure and stroke. Psychiatric Complains of anxiety. Denies delusions, hallucinations, depression and euphoria. Endocrine Denies diabetes, hot flashes, menstrual irregularities and thyroid disease. Hematologic/Lymphatic Denies easy bruising and tender or enlarged lymph nodes. PHYSICAL EXAMINATION ECOG Performance Status: 2 - Ambulatory/capable of all self-care, unable to perform any work activities. Up and about more than 50% of waking hours. (ECOG) Vitals: Performed on 03/13/2022 10:07 AM BMI - 28.531 lbs (high)-, Height - 61 in-, Weight - 151 lbs-, Temperature - 98.1 f-, Pulse - 60 / min-, Respiration - 18 / min- and BP - 121/ 63 mm(hg)(/low) - ;. Physical Exam: Constitutional Normal - No evidence of impaired alertness, inadequate appearance, premature or advanced chronologic age, uncooperativeness, developmental delays, altered mood and affect and disorientation. Head Normal - No evidence of alopecia, abnormal cephalic and scars. ENMT Normal - No evidence of ear abnormalities, oral abnormalities, nasal obstruction, oropharynx obstruction, sinusitis, throat abnormalities and tongue abnormalities. Neck Normal - No evidence of tender or enlarged lymph nodes, neck abnormalities, restricted range of motion and enlarged thyroid gland. Breasts Normal - No evidence of a breast mass(es), nipple discharge, nipple inversion, breast skin changes and asymmetry. 4cm transverse scar just lateral to midline on ant. chest wall. Previous transverse mastectomy scar w/o nodularity Chest Normal - No evidence of chest abnormalities and tender or enlarged lymph nodes. Cardiovascular Normal - No evidence of arterial pulse(s) abnormalities, abnormal heart rate, heart arrhythmia and abnormal heart sounds. Respiratory Normal - No evidence of abnormal breath sounds, chest abnormalities on palpation and chest abnormalities on percussion. 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 Post local excision with negative surgical margins. Recommendation: The role of radiation therapy in this setting was discussed with the patient and her . As she is at risk for recurrent regional and adrianna spread, she would be a candidate for comprehensive radiotherapy to the chest wall and regional lymphatics. This would involve daily radiotherapy treatments for period of approximately 6 weeks. We discussed the typical risk, benefits, and side effects of radiation to the right chest wall and regional lymph node regions. All questions areanswered and she is agreeable to proceed. She will undergo CT-based planning within the next week anticipating treatment to begin soon after. Approved By: Derian Patiño MD 03/13/2022 11:56:57 AM CC: ASPEN RUIZ DO [id number] NoteHNO ID: [id number] Author: Joseph Retana MD Service: ? Author Type: Physician Type: Progress Notes Filed: 01/07/2022 10:44 AM Note Text: ESTABLISHED PATIENT VISIT HPI Carol Ann Orellana is a 76 year old female who presents Follow up Hydronephrosis and review CT Urogram Reviewed her imaging and no hydronephrosis or abnormality. Did prednisone prior to CT. Caused significant swelling. Will follow conservatively. REVIEW OF SYSTEMS GENERAL:No weight loss, malaise or fevers., SEE HPI GENITOURINARY: See HPI CONSTITUTIONALl: No recent fever or weight loss ALLERGIES Allergen Reactions - Oxycodone-Acetamino* Other: See Comments - Cortisone - Iv Dye [Iodinated C* Rash - Sulfa (Sulfonamide * HISTORIES PAST MEDICAL HISTORY Diagnosis Date - Bladder infection - Breast cancer (HCC) - GERD (gastroesophageal reflux disease) - Kidney stones - Leg pain - Migraines - Neurogenic bladder - Osteoarthrosis, unspecified whether generalized or localized, other specified sites - Osteoporosis - Other and unspecified disc disorder of unspecified region Intervertebral disc disorders - DIAMOND (stress urinary incontinence, female) - Thyroid disease - Urethral hypermobility - Urge incontinence - Urgency of urination FAMILY HISTORY Problem Relation Age of Onset - Diabetes Mother - Stroke Mother - Hypertension Mother - Heart Father - Hypertension Father - Heart disease Brother - Diabetes Brother Social History Tobacco Use - Smoking status: Former Smoker Years: 15.00 Types: Cigarettes Quit date: 1982 Years since quittin.3 - Smokeless tobacco: Never Used Substance Use Topics - Alcohol use: No - Drug use: No MEDICATIONS: famotidine (PEPCID) 20 mg tablet Take 20mg tab 1 hour prior to procedure diphenhydrAMINE (BENADRYL) 25 mg capsule Take 50mg PO 1 hour prior to procedure. predniSONE (DELTASONE) 20 mg tablet 40 mg po [id number] x3 doses, start 24 hours prior to test. 40mg po 1 hour prior to test iron/vitamin B complex (GERITOL ORAL) Take by mouth. tolterodine ER (DETROL LA) 4 mg 24 hr capsule Take 1 capsule by mouth once daily. mirabegron (MYRBETRIQ) 25 mg Tb24 Take 1 tablet by mouth once daily. phenazopyridine (PYRIDIUM) 200 mg tablet Take 1 tablet by mouth three times daily as needed. Diclofenac Sodium (SOLARAZE) 3 % gel diclofenac sodium 3 % gel lidocaine-methyl lisa-menthol 5-10-3 % ktop lidocaine 5 % oint fluticasone (FLOVENT HFA) 220 mcg/actuation inhaler flovent hfa 220 mcg/act aero estradiol (ESTRACE) 0.01 % (0.1 mg/gram) vaginal cream use one gram VAGINALLY three times per week HYDROcodone-Acetaminophen (NORCO) 10-325 mg per tablet Take 1 tablet by mouth every 8 hours as needed. methylphenidate (RITALIN) 20 mg tablet Take 20 mg by mouth twice daily. levothyroxine (SYNTHROID) 50 mcg tablet Take 50 mcg by mouth daily before breakfast. nebivolol (BYSTOLIC) 5 mg tablet Take 5 mg by mouth once daily. ergocalciferol, vitamin D2, (VITAMIN D) 50,000 unit capsule Take 50,000 Units by mouth once each week. meclizine (ANTIVERT) 25 mg tab Take 25 mg by mouth as needed. For dizziness diclofenac sodium(VOLTAREN 1 % TOPICAL GEL) apply 4 grams 4 times daily pregabalin(LYRICA 75 MG CAP) alprazolam(XANAX 0.5 MG TAB) Take one(1) tablet three(3) times daily. nitrofurantoin monohydrate and macrocrystal (MACROBID) 100 mg capsule TAKE 1 CAPSULE EVERY 12 HOURS for 7 days. Take with meal/food. amoxicillin (POLYMOX, AMOXIL) 500 mg capsule Take 500 mg by mouth twice daily. iv contrast (will be provided with radiology test) CT Urogram WO/W Inject, intravenously, once for 1 dose.No IV access, insert saline lock prior to the beginning of sedation, infusion, injection of imaging exam. Discontinue saline lock post exam. If Pt. has a central line or IVAD, may access for administration according to line specific nursing protocol. Once exam is complete flush line and de-access according to line specific nursing protocol in the CT contrast administration guidelines link. Physical Exam There were no vitals taken for this visit. ASSESSMENT/PLAN: (N13.30) Hydronephrosis, unspecified hydronephrosis type (primary encounter diagnosis) I reviewed her previous and most recent CT imaging. Follow up as needed.[facility]04-26-2022 History of Present illness Narrative* Joseph Retana MD - 01/07/2022 9:27 AM EDT ESTABLISHED PATIENT VISIT HPI Carol Ann Orellana is a 76 year old female who presents Follow up Hydronephrosis and review CT Urogram Reviewed her imaging and no hydronephrosis or abnormality. Did prednisone prior to CT. Caused significant swelling. Will follow conservatively. REVIEW OF SYSTEMS GENERAL:No weight loss, malaise or fevers., SEE HPI GENITOURINARY: See HPI CONSTITUTIONALl: No recent fever or weight loss ALLERGIES Allergen Reactions Oxycodone-Acetamino* Other: See Comments Cortisone Iv Dye [Iodinated C* Rash Sulfa (Sulfonamide * HISTORIES PAST MEDICAL HISTORY Diagnosis Date Bladder infection Breast cancer (HCC) GERD (gastroesophageal reflux disease) Kidney stones Leg pain Migraines Neurogenic bladder Osteoarthrosis, unspecified whether generalized or localized, other specified sites Osteoporosis Other and unspecified disc disorder of unspecified region Intervertebral disc disorders DIAMOND (stress urinary incontinence, female) Thyroid disease Urethral hypermobility Urge incontinence Urgency of urination FAMILY HISTORY Problem Relation Age of Onset Diabetes Mother Stroke Mother Hypertension Mother Heart Father Hypertension Father Heart disease Brother Diabetes Brother Social History Tobacco Use Smoking status: Former Smoker Years: 15.00 Types: Cigarettes Quit date: 1982 Years since quittin.3 Smokeless tobacco: Never Used Substance Use Topics Alcohol use: No Drug use: No MEDICATIONS: famotidine (PEPCID) 20 mg tablet Take 20mg tab 1 hour prior to procedure diphenhydrAMINE (BENADRYL) 25 mg capsule Take 50mg PO 1 hour prior to procedure. predniSONE (DELTASONE) 20 mg tablet 40 mg po [id number] x3 doses, start 24 hours prior to test. 40mg po 1 hour prior to test iron/vitamin B complex (GERITOL ORAL) Take by mouth. tolterodine ER (DETROL LA) 4 mg 24 hr capsule Take 1 capsule by mouth once daily. mirabegron (MYRBETRIQ) 25 mg Tb24 Take 1 tablet by mouth once daily. phenazopyridine (PYRIDIUM) 200 mg tablet Take 1 tablet by mouth three times daily as needed. Diclofenac Sodium (SOLARAZE) 3 % gel diclofenac sodium 3 % gel lidocaine-methyl lisa-menthol 5-10-3 % ktop lidocaine 5 % oint fluticasone (FLOVENT HFA) 220 mcg/actuation inhaler flovent hfa 220 mcg/act aero estradiol (ESTRACE) 0.01 % (0.1 mg/gram) vaginal cream use one gram VAGINALLY three times per week HYDROcodone-Acetaminophen (NORCO) 10-325 mg per tablet Take 1 tablet by mouth every 8 hours as needed. methylphenidate (RITALIN) 20 mg tablet Take 20 mg by mouth twice daily. levothyroxine (SYNTHROID) 50 mcg tablet Take 50 mcg by mouth daily before breakfast. nebivolol (BYSTOLIC) 5 mg tablet Take 5 mg by mouth once daily. ergocalciferol, vitamin D2, (VITAMIN D) 50,000 unit capsule Take 50,000 Units by mouth once each week. meclizine (ANTIVERT) 25 mg tab Take 25 mg by mouth as needed. For dizziness diclofenac sodium(VOLTAREN 1 % TOPICAL GEL) apply 4 grams 4 times daily pregabalin(LYRICA 75 MG CAP) alprazolam(XANAX 0.5 MG TAB) Take one(1) tablet three(3) times daily. nitrofurantoin monohydrate and macrocrystal (MACROBID) 100 mg capsule TAKE 1 CAPSULE EVERY 12 HOURSfor 7 days. Take with meal/food. amoxicillin (POLYMOX, AMOXIL) 500 mg capsule Take 500 mg by mouth twice daily. iv contrast (will be provided with radiology test) CT Urogram WO/W Inject, intravenously, once for 1 dose.No IV access, insert saline lock prior to the beginning of sedation, infusion, injection of imaging exam. Discontinue saline lock post exam. If Pt. has a central line or IVAD, may access for administration according to line specific nursing protocol. Once exam is complete flush line and de-access according to line specific nursing protocol in the CT contrast administration guidelines link. Physical Exam There were no vitals taken for this visit. ASSESSMENT/PLAN: (N13.30) Hydronephrosis, unspecified hydronephrosis type (primary encounter diagnosis) I reviewed her previous and most recent CT imaging. Follow up as needed. [facility]22 NoteHNO ID: [id number] Author: RT Cristobal(R) Service: Radiology Author Type: Technologist Type: Progress Notes Filed: 12/11/2021 2:08 PM Note Text: Radiology Service Progress Note DATE OF SERVICE: December 11, 2021 TIME: 2:05 PM PATIENT IDENTITY VERIFICATION COMPLETED USING TWO (2) STANDARD IDENTIFIERS: Name and Date of confirmed by patient verbally and Name and Date of confirmed by identification band. FALL SCREENING: Has the patient had 2 falls in the last year or 1 fall with injury or currently using an Ambulatory Assistive Device (Walker, Cane, Wheelchair, Crutches, etc.)? No PATIENT GENDER DATA: Female. status: : No status: NO. PATIENT RELEVANT IMPLANT DATA REVIEWED: Not Applicable ALLERGIES: Reviewed and unchanged CONTRAST ALLERGY: YES visipaque. EXAM: CT -CONTRAST INDUCED NEPHROPATHY RISK FACTORS: Patient age > 60 years CREATININE: Creatinine Date Value Ref Range Status 11/13/2021 0.87 0.58 - 0.96 mg/dL Final 05/06/2019 0.72 0.58 - 0.96 mg/dL Final Estimated Glomerular Filtration Rate Date Value Ref Range Status 11/13/2021 68 >=60 mL/min/1.73m? Final Comment: Estimated Glomerular Filtration Rate (eGFR) is calculated using the 2020 CKD-EPI creatinine equation. This equation utilizes serum creatinine, sex, and age as parameters. The creatinine assay has traceable calibration to isotope dilution-mass spectrometry. Refer to KDIGO guidelines for clinical interpretation. In patients with unstable renal function, e.g. those with acute kidney injury, the eGFR may not accurately reflect actual GFR. eGFR- Date Value Ref Range Status 05/06/2019 >60 Final P.O.C.T. RESULTS: POC done: Yes, See Lab Tab December 11, 2021 TREATMENT: N/A PERIPHERAL IV DATA: Ambulatory: A peripheral IV was started in the Left antecubital site with a Angio cath: 22 gauge. RADIOLOGY DEPARTMENT: CT; Exam(s) Completed: urogram SIGNATURE: RT Cristobal(R) PATIENT NAME: Carol Ann Orellana DATE: December 11, 2021 TIME: 2:05 [facility]03-30-2022 History of Present illness Narrative* Shikha RT Bandar(R) - 12/11/2021 1:30 PM EDT Radiology Service Progress Note DATE OF SERVICE: December 11, 2021 TIME: 2:05 PM PATIENT IDENTITY VERIFICATION COMPLETED USING TWO (2) STANDARD IDENTIFIERS: Name and Date of confirmed by patient verbally and Name and Date of confirmed by identification band. FALL SCREENING: Has the patient had 2 falls in the last year or 1 fall with injury or currently using an Ambulatory Assistive Device (Walker, Cane, Wheelchair, Crutches, etc.)? No PATIENT GENDER DATA: Female. status: : No status: NO. PATIENT RELEVANT IMPLANT DATA REVIEWED: Not Applicable ALLERGIES: Reviewed and unchanged CONTRAST ALLERGY: YES visipaque. EXAM: CT -CONTRAST INDUCED NEPHROPATHY RISK FACTORS: Patient age > 60 years CREATININE: Creatinine Date Value Ref Range Status 11/13/2021 0.87 0.58 - 0.96 mg/dL Final 05/06/2019 0.72 0.58 - 0.96 mg/dL Final Estimated Glomerular Filtration Rate Date Value Ref Range Status 11/13/2021 68 >=60 mL/min/1.73m Final Comment: Estimated Glomerular Filtration Rate (eGFR) is calculated using the 2020 CKD-EPI creatinine equation. This equation utilizes serum creatinine, sex, and age as parameters. The creatinine assay has traceable calibration to isotope dilution- mass spectrometry. Refer to KDIGO guidelines for clinical interpretation. In patients with unstable renal function, e.g. those with acute kidney injury, the eGFRmay not accurately reflect actual GFR. eGFR- Date Value Ref Range Status 05/06/2019 >60 Final P.O.C.T. RESULTS: POC done: Yes, See Lab Tab December 11, 2021 TREATMENT: N/A PERIPHERAL IV DATA: Ambulatory: A peripheral IV was started in the Left antecubital site with a Angio cath: 22 gauge. RADIOLOGY DEPARTMENT: CT; Exam(s) Completed: urogram SIGNATURE: Shikha RT Bandar(R) PATIENT NAME: Carol Ann Orellana DATE: December 11, 2021 TIME: 2:05 PM [facility] Discharge instructions Patient Education 11/25/2021 09:25:28 3- Heart Cath/PCI radial (06/2018) (CUSTOM) HEART CATHETERIZATION/PCI (radial) Discharge Instructions DIET Drink plenty of fluids for the next 48 hours to help your kidneys flush the heart cath dye out of your system ACTIVITY For the next 48 hours: Do not deep bend the wrist Do not lift, push, or pull anything over 5 pounds Do not use the hand/arm to support your weight when rising from a chair or bed Do not drive For the next 7 days: Do not submerse your procedure site in water Do not swim, wash dishes, or take tub baths You may write, eat, type, and shower WOUND CARE Keep a dressing on your procedure site for the next 24 hours and then apply a band-aid for 3-4 days Change the Band-Aid daily or if it gets wet/soiled AFTER YOU GO HOME, CALL YOUR DOCTOR FOR: Any increase in bruising or tenderness from the procedure site Any redness, pus, or other signs of infection at the site A temperature above 100.5 Severe pain at the site DIAL 911 AND RETURN TO THE HOSPITAL FOR: Any bleeding from the procedure site. The site may be bruised or tender, but it should not be bleeding at any time. If your site begins to bleed, hold firm pressure on it and dial 911 to return to the hospital Any increase in swelling at the procedure site. An increase in swelling could mean the area is bleeding under the skin. Hold firm pressure to the site and dial 911 to return to the hospital Document Released: 08/31/2006 Document Revised: 08/17/2013 Document Reviewed: 09/01/2014 [employer] Patient Information 2014 [employer]. This information is not intended to replace advicegiven to you by your health care provider. Make sure you discuss any questions you have with your health care provider. Follow Up Care 11/11/2021 12:23:58 With:MAYRA MOREL MD Address: [address] [place] [address] [address] [place] [address]- [phone] When:01/06/2022 11:00:00 [facility] 02-25-2022 NoteHNO ID: [id number] Author: Joseph Retana MD Service: ? Author Type: Physician Type: Progress Notes Filed: 11/08/2021 8:21 AM Note Text: ESTABLISHED PATIENT VISIT HPI Carol Ann Orellana is a 76 year old female who presents Follow up Hydronephrosis Patient with new right hydronephrosis and right flank pain. New CHF We reviewed her previous CT imaging showing what appears to be an extrarenal pelvis on the right. We discussed various imaging modalities. She is not a good surgical candidate at this time. We will arrange for a CT scan with contrast. 04/2019 URINE POC GLUCOSE UA (POCT) Negative 11/08/2021 BILIRUBIN UA (POCT) Negative 11/08/2021 KETONE UA (POCT) Negative 11/08/2021 SPECIFIC GRAVITY UA (POCT) 1.015 11/08/2021 HEMOGLOBIN/BLOOD UA (POCT) Negative 11/08/2021 PH UA (POCT) 6.5 11/08/2021 PROTEIN UA (POCT) Negative 11/08/2021 UROBILINOGEN UA (POCT) 0.2 11/08/2021 NITRITE UA (POCT) Negative 11/08/2021 LEUKOCYTES UA (POCT) Negative 11/08/2021 COLOR UA (POCT) Yellow 11/08/2021 CLARITY UA (POCT) Clear 11/08/2021 REVIEW OF SYSTEMS GENERAL:No weight loss, malaise or fevers., SEE HPI GENITOURINARY: See HPI CONSTITUTIONALl: No recent fever or weight loss ALLERGIES Allergen Reactions - Oxycodone-Acetamino* Other: See Comments - Cortisone - Iv Dye [Iodinated C* Rash - Sulfa (Sulfonamide * HISTORIES PAST MEDICAL HISTORY Diagnosis Date - Bladder infection - Breast cancer (HCC) - GERD (gastroesophageal reflux disease) - Kidney stones - Leg pain - Migraines - Neurogenic bladder - Osteoarthrosis, unspecified whether generalized or localized, other specified sites - Osteoporosis - Other and unspecified disc disorder of unspecified region Intervertebral disc disorders - DIAMOND (stress urinary incontinence, female) - Thyroid disease - Urethral hypermobility - Urge incontinence - Urgency of urination FAMILY HISTORY Problem Relation Age of Onset - Diabetes Mother - Stroke Mother - Hypertension Mother - Heart Father - Hypertension Father - Heart disease Brother - Diabetes Brother Social History Tobacco Use - Smoking status: Former Smoker Years: 15.00 Types: Cigarettes Quit date: 1982 Years since quittin.1 - Smokeless tobacco: Never Used Substance Use Topics - Alcohol use: No - Drug use: No MEDICATIONS: iron/vitamin B complex (GERITOL ORAL) Take by mouth. tolterodine ER (DETROL LA) 4 mg 24 hr capsule Take 1 capsule by mouth once daily. mirabegron (MYRBETRIQ) 25 mg Tb24 Take 1 tablet by mouth once daily. phenazopyridine (PYRIDIUM) 200 mg tablet Take 1 tablet by mouth three times daily as needed. Diclofenac Sodium (SOLARAZE) 3 % gel diclofenac sodium 3 % gel lidocaine-methyl lisa-menthol 5-10-3 % ktop lidocaine 5 % oint fluticasone (FLOVENT HFA) 220 mcg/actuation inhaler flovent hfa 220 mcg/act aero estradiol (ESTRACE) 0.01 % (0.1 mg/gram) vaginal cream use one gram VAGINALLY three times per week HYDROcodone-Acetaminophen (NORCO) 10-325 mg per tablet Take 1 tablet by mouth every 8 hours as needed. methylphenidate (RITALIN) 20 mg tablet Take 20 mg by mouth twice daily. levothyroxine (SYNTHROID) 50 mcg tablet Take 50 mcg by mouth daily before breakfast. nebivolol (BYSTOLIC) 5 mg tablet Take 5 mg by mouth once daily. ergocalciferol, vitamin D2, (VITAMIN D) 50,000 unit capsule Take 50,000 Units by mouth once each week. meclizine (ANTIVERT) 25 mg tab Take 25 mg by mouth as needed. For dizziness diclofenac sodium(VOLTAREN 1 % TOPICAL GEL) apply 4 grams 4 times daily pregabalin(LYRICA 75 MG CAP) alprazolam(XANAX 0.5 MG TAB) Take one(1) tablet three(3) times daily. nitrofurantoin monohydrate and macrocrystal (MACROBID) 100 mg capsule TAKE 1 CAPSULE EVERY 12 HOURS for 7 days. Take with meal/food. amoxicillin (POLYMOX, AMOXIL) 500 mg capsule Take 500 mg by mouth twice daily. iv contrast (will be provided with radiology test) CT Urogram WO/W Inject, intravenously, once for 1 dose.No IV access, insert saline lock prior to the beginning of sedation, infusion, injection of imaging exam. Discontinue saline lock post exam. If Pt. has a central line or IVAD, may access for administration according to line specific nursing protocol. Once exam is complete flush line and de-access according to line specific nursing protocol in the CT contrast administration guidelines link. Physical Exam Ht 154.9 cm (5' 1") Wt 70.3 kg (155 lb) BMI 29.29 kg/m? ASSESSMENT/PLAN: (N13.30) Hydronephrosis, unspecified hydronephrosis type (primary encounter diagnosis) (N39.0) Recurrent [facility]02-12-2022 Hospital Discharge instructions Patient Education 10/26/2021 12:57:06 Heart Failure, Diagnosis, [id number] Heart Failure, Diagnosis Heart failure means that your heart is not able to pump blood in the right way. This makes it hard for your body to work well. Heart failure is usually a long- term (chronic) condition. You must take good care of yourself and follow your treatment plan from your doctor. What are the causes? This condition may be caused by: High blood pressure. Build up of cholesterol and fat in the arteries. Heart attack. This injures the heart muscle. Heart valves that do not open and close properly. Damage of the heart muscle. This is also called cardiomyopathy. Lung disease. Abnormal heart rhythms. What increases the risk? The risk of heart failure goes up as a person ages. This condition is also more likely to develop in people who: Are overweight. Are male. Smoke or chew tobacco. Abuse alcohol or illegal drugs. Have taken medicines that can damage the heart. Have diabetes. Have abnormal heart rhythms. Have thyroid problems. Have low blood counts (anemia). What are the signs or symptoms? Symptoms of this condition include: Shortness of breath. Coughing. Swelling of the feet, ankles, legs, or belly. Losing weight for no reason. Trouble breathing. Waking from sleep because of the need to sit up and get more air. Rapid heartbeat. Being very tired. Feeling dizzy, or feeling like you may pass out (faint). Having no desire to eat. Feeling like you may vomit (nauseous). Peeing (urinating) more at night. Feeling confused. How is this treated? This condition may be treated with: Medicines. These can be given to treat blood pressure and to make the heart muscles stronger. Changes in your daily life. These may include eating a healthy diet, staying at a healthy body weight, quitting tobacco and illegal drug use, or doing exercises. Surgery. Surgery can be done to open blocked valves, or to put devices in the heart, such as pacemakers. A donor heart (heart transplant). You will receive a healthy heart from a donor. Follow these instructions at home: Treat other conditions as told by your doctor. These may include high blood pressure, diabetes, thyroid disease, or abnormal heart rhythms. Learn as much as you can about heart failure. Get support as you need it. Keep all follow-up visits as told by your doctor. This is important. Summary Heart failure means that your heart is not able to pump blood in the right way. This condition is caused by high blood pressure, heart attack, or damage of the heart muscle. Symptoms of this condition include shortness of breath and swelling of the feet, ankles, legs, or belly. You may also feel very tired or feel like you may vomit. You may be treated with medicines, surgery, or changes in your daily life. Treat other health conditions as told by your doctor. This information is not intended to replace advice given to you by your health care provider. Make sure you discuss any questions you have with your health care provider. Document Released: 06/09/2009 Document Revised: 11/18/2019 Document Reviewed: 11/18/2019 [employer] Patient Education 2020 [employer]. Follow Up Care 10/24/2021 11:56:52 With:MANJINDER HENDRICKSON Address:Unknown When:1-2 days With:RICARDO RUIZ Address:Unknown When:1-2 days [facility] 02-10-2022 HCoV 229E RNA CORDELIA+non-probe Ql (Nph)Not Detected *NA* (10/24/21 3:45 PM) Auto Viro/Sero [id number] Evaluation + Plan noteExtracted from: Title:Clinical Document Author:CEDRIC LIAO MD Date:10/24/21 [facility] Hospitalist History and Physical Date of Admission: 10/24/2021 Chief complaint: Shortness of breath History of present illness: History is taken from talking with emergency room physician as well as talking with the patient. Patient has a past medical history of GERD, anxiety, hypothyroidism, ADHD, fibromyalgia, breast cancer, pulmonary embolism, hypertension, chronic hypoxic respiratory failure on 2 L nasal cannula at night, chronic anemia. Patient was last discharged from here on 03/03/2017 and during that admission the patient was here for acute epoxy respiratory failure secondary to bilateral pulmonary embolism and DVT. There was also concern for pneumonia. The patient reports that she has since been taken off of anticoagulation. Per the patient over the last 2 weeks she has had progressively worsening shortness of breath. She has had severe bilateral lower extremity edema. Reports compliance with her home diuretics. She reports that she gets very hypoxic and short of breath with minimal exertion. She can only take a few steps and she will need to rest. She reports that she did check her pulse ox several times at home and it was down to 70s to 80s. She uses 2 L nasal cannula at night. She denies chest pain. She does report having a nonproductive cough. Denies fevers, chills or night sweats. Since presenting to the emergency room and the patient has been afebrile, hemodynamically stable, 85% 2 L nasal cannula. Labs and imaging of note: WBC 5.9 hemoglobin 10.9 which is around her baseline. Urinalysis not concerning for infection No concerning finding on CMP. proBNP 547 High-sensitivity troponin 9.2 Respiratory virus panel negative Chest x-ray did show diffuse interstitial opacities concerning for pulmonary edema. CT angiography of the chest with contrast is negative for pulmonary embolism. Did show concern for congestion/edema. EKG showed sinus rhythm with no ST elevation or ST depression. In the emergency department the patient was not given any medications. Past medical history: Anxiety Attention deficit hyperactivity disorder, inattentive type Constipation Fibromyalgia GERD (gastroesophageal reflux disease) History of breast cancer History of pulmonary embolism Hypertension Hypothyroid Insomnia Lymphedema of right arm Lymphedema of right lower extremity Migraine without status migrainosus, not intractable Spinal stenosis of lumbar region Swelling of lower extremity Vitamin D deficiency Mastectomy of right breast: 06/25/18 Breast biopsy and related procedures: 05/05/18 Repair of meniscus Esophagogastroduodenoscopy Carpal tunnel release Hysterectomy Total knee replacement Spinal fusion Appendectomy Cataracts Surgery Colonoscopy Tumor of bladder neck Hand reconstruction Suspension of bladder Family history: Mother: Malignant neoplasm Father: Endocarditis; Heart attack Brother: Heart disease Social history: Denies smoking cigarettes or alcohol consumption Medications: Home Medications (17) Active albuterol MDI (90 mcg/inh) CFC free inhalation aerosol 2 puff(s), PRN, Inhalation, q4h amoxicillin 500 mg oral capsule See Instructions aspirin 81 mg oral delayed release tablet 81 mg = 1 tab(s), Oral, qDay Bystolic 5 mg oral tablet 5 mg = 1 tab(s), Oral, qDay Colace 100 mg oral capsule 200 mg = 2 cap(s), PRN, Oral, qHS ergocalciferol 50,000 intl units (1.25 mg) oral capsule 50,000 International_Unit = 1 cap(s), Oral, qWeek furosemide 20 mg oral tablet 20 mg = 1 tab(s), PRN, Oral, qDay Geritol Complete oral tablet 1 tab(s), Oral, qDay lidocaine 5% topical cream 1 cathy, Topical, BID lidocaine 5% topical patch 1 patch(es), Transdermal, q36h methylphenidate 20 mg oral tablet 20 mg = 1 tab(s), Oral, BID [place] 325-10 mg oral tablet 1 tab(s), PRN, Oral, TID omeprazole 20 mg oral delayed release capsule See Instructions pregabalin 150 mg oral capsule 150 mg = 1 cap(s), Oral, TID Synthroid 50 mcg (0.05 mg) oral tablet 50 mcg = 1 tab(s), Oral, qDayAC tolterodine 4 mg oral capsule, extended release 4 mg = 1 cap(s), PRN, Oral, qDay Xanax 1 mg oral tablet 1 mg = 1 tab(s), Oral, TID Allergies: doxycycline (WEAKNESS) Latex (RASH) montelukast (Rash,"thick tongue") Percocet 5/325 (HYPER) sulfamethoxazole (nausea, diaphoresis) Review of systems: See HPI for pertinent positives and negatives. All other review of systems have been reviewed and they are negative. Vitals Signs(Last 24 hrs)__Last Charted Minimum Maximum Temp36.7(B 10 11:57)36.7(B 10 11:57)36.7(B 11:57) Heart Rate70(FEB 10 22:25)66(FEB 10 17:51)80(FEB 10 19:43) Resp Rate16(FEB 10 22:25)L 12(FEB 10 17:51)16(FEB 10 11:57) SBPH 160(B 10 22:25)103(FEB 10 14:45)H 160(FEB 10 22:25) DBP71(B 10 22:25)L 58(FEB 10 19:43)78(B 10 15:23) Physical examination: HEENT: No Pallor, No Icterus Cardiac: RRR, No murmur, elevated JVD Lungs: Diffuse crackles no wheezing Abdomen: Soft Non tender Musculoskeletal: No joint pains or swelling Extremities: 2+ bilateral lower extremity edema, good pulses Neurological: Alert, no deficits Skin: No rash, no nodules Labs: WBC: 5.9 10^3/mcL (10/24/21 15:45:00) RBC: 3.77 10^6/mcL Low (10/24/21 15:45:00) Hgb: 10.9 G/dL Low (10/24/21 15:45:00) Hct: 33.3 % Low (10/24/21 15:45:00) MCV: 88.2 fL (10/24/21 15:45:00) MCH: 29 pg (10/24/21 15:45:00) MCHC: 32.9 G/dL (10/24/21 15:45:00) RDW: 14 % (10/24/21 15:45:00) Platelet: 248 10^3/mcL (10/24/21 15:45:00) MPV: 7.6 fL (10/24/21 15:45:00) Neutrophil %: 55.5 % (10/24/21 15:45:00) Lymphocyte %: 27.4 % (10/24/21 15:45:00) Monocyte %: 6.7 % (10/24/21 15:45:00) Eosinophil %: 9.8 % High (10/24/21 15:45:00) Basophil %: 0.6 % (10/24/21 15:45:00) Neutrophil, Absolute: 3.3 10^3/mcL (10/24/21 15:45:00) Lymphocyte, Absolute: 1.6 10^3/mcL (10/24/21 15:45:00) Monocyte, Absolute: 0.4 10^3/mcL (10/24/21 15:45:00) Eosinophil, Absolute: 0.6 10^3/mcL (10/24/21 15:45:00) Basophil, Absolute: 0 10^3/mcL (10/24/21 15:45:00) UA Specimen Type: Clean Catch (10/24/21:52:00) UA Color: Straw (10/24/21 15:52:00) UA Appear: Clear (10/24/21:52:00) UA Spec Grav: 1.015 (10/24/21:52:00) UA Glucose: Negative. (10/24/21:52:00) UA Bili: Negative. (10/24/21:52:00) UA Ketones: Negative. (10/24/21 15:52:00) UA Blood: Trace4 (10/24/21:52:00) UA pH: 6.0 (10/24/21 15:52:00) UA Protein: Negative.1 (10/24/21:52:00) UA Urobilinogen: 0.2 (10/24/21:52:00) UA Nitrite: Negative. (10/24/21:52:00) UA Leuk Est: Trace (10/24/21:52:00) Glucose Level: 106 mg/dL (10/24/21 15:45:00) Sodium Level: 138 mEq/L (10/24/21 15:45:00) Potassium Level: 4 mEq/L (10/24/21 15:45:00) Chloride: 107 mEq/L (10/24/21:45:00) CO2: 31 mEq/L (10/24/21:45:00) Electrolyte Balance: 0 mEq/L Low (10/24/21:45:00) BUN: 13 mg/dL (10/24/21 15:45:00) Creatinine Lvl (s): 0.73 mg/dL (10/24/21 15:45:00) BUN/Creatinine Ratio: 17.8 ratio (10/24/21 15:45:00) Calcium Lvl: 8.8 mg/dL (10/24/21 15:45:00) Total Protein: 8.4 G/dL (10/24/21 15:45:00) Albumin Level: 2.5 G/dL Low (10/24/21 15:45:00) Globulin: 5.9 G/dL High (10/24/21 15:45:00) A/G Ratio: 0.4 ratio Low (10/24/21 15:45:00) Bili Total: 0.3 mg/dL (10/24/21 15:45:00) Alk Phos: 67 U/L (10/24/21 15:45:00) AST/SGOT: 23 U/L (10/24/21 15:45:00) ALT/SGPT: 23 U/L (10/24/21 15:45:00) GFR Non-: >60 (10/24/21 15:45:00) GFR : >60 (10/24/21:45:00) N-Terminal proBNP: 547 pg/mL (10/24/21 15:45:00) Troponin I High Sensitivity: 9.2 ng/L (10/24/21 15:45:00) First Test: Unknown (10/24/21:45:00) Employed in Healthcare: No (10/24/21:45:00) Symptomatic as Defined by CDC: Yes (10/24/21:45:00) Date of Onset: 10/17/21 (10/24/21 15:45:00) Hospitalized: Unknown (10/24/21:45:00) ICU: No (10/24/21:45:00) Resides in Congregate Care Setting: No (10/24/21 15:45:00) : Not (10/24/21 15:45:00) Adenovirus: Not Detected TORCH (10/24/21 15:45:00) Coronavirus HKU1 (Not COVID-19): Not Detected TORCH (10/24/21 15:45:00) Coronavirus NL63 (Not COVID-19): Not Detected TORCH (10/24/21 15:45:00) Coronavirus 229E (Not COVID-19): Not Detected TORCH (10/24/21 15:45:00) Coronavirus OC43 (Not COVID-19): Not Detected TORCH (10/24/21 15:45:00) SARS-CoV-2: Not Detected TORCH (10/24/21 15:45:00) Human Metapneumovirus: Not Detected TORCH (10/24/21 15:45:00) Influenza A: Not Detected TORCH (10/24/21 15:45:00) Influenza B: Not Detected TORCH (10/24/21 15:45:00) Parainfluenza 1: Not Detected TORCH (10/24/21 15:45:00) Parainfluenza 2: Not Detected TORCH (10/24/21 15:45:00) Parainfluenza 3: Not Detected TORCH (10/24/21 15:45:00) Parainfluenza 4: Not Detected TORCH (10/24/21 15:45:00) Rhinovirus/Enterovirus: Not Detected TORCH (10/24/21 15:45:00) Respiratory Syncytial Virus: Not Detected TORCH (10/24/21 15:45:00) Mycoplasma pneumoniae: Not Detected TORCH (10/24/21 15:45:00) Chlamydophila pneumoniae: Not Detected TORCH (10/24/21 15:45:00) Bordetella Pertussis: Not Detected TORCH (10/24/21 15:45:00) Bordetella Parapertussis: Not Detected TORCH (10/24/21 15:45:00) Urinalysis UA Specimen Type: Clean Catch (10/24/21 15:52:00) UA Color: Straw (10/24/21 15:52:00) UA Appear: Clear (10/24/21 15:52:00) UA Spec Grav: 1.015 (10/24/21 15:52:00) UA Glucose: Negative. (10/24/21 15:52:00) UA Bili: Negative. (10/24/21 15:52:00) UA Ketones: Negative. (10/24/21 15:52:00) UA Blood: Trace4 (10/24/21 15:52:00) UA pH: 6.0 (10/24/21 15:52:00) UA Protein: Negative.1 (10/24/21 15:52:00) UA Urobilinogen: 0.2 (10/24/21 15:52:00) UA Nitrite: Negative. (10/24/21 15:52:00) UA Leuk Est: Trace (10/24/21 15:52:00) Assessment and plan: Patient presents on 10/24/2021 with progressively worsening shortness of breath, hypoxia and lower extremity edema. Acute newly diagnosed diastolic heart failure exacerbation. We will put her on IV Lasix. We will get an echocardiogram. Acute on chronic hypoxic respiratory failure on home 2 L nasal cannula at night secondary to heart failure exacerbation. Respiratory virus panel negative. Imaging more concerning for pulmonary edema than infection. CT angiography of the chest negative for pulmonary embolism. Hypertension. Continue home medications Chronic anemia, stable GERD. Continue home medications Anxiety, ADHD, fibromyalgia, chronic pain syndrome. Continue home medications Hypothyroidism. Continue medications Prophylaxis SCDs CODE STATUS full code Future Appointments Appointment Date:12/04/2021 10:00:00 AM Scheduled Provider:RICARDO RUIZ DO Location:[facility] Appointment Type:PC OV Controlled Medication Appointment Date:01/06/2022 01:30:00 PM Scheduled Provider:ASPEN AVINA MD Location:[facility] Appointment Type:GS OV Future Scheduled Tests Radiology* XR Chest 2 Views (PA & Lateral) 03/27/21 * MA Mammo Screening Left w/ Ab 04/04/21 [facility] 01-13-2022 NoteHNO ID: [id number] Author: Reji Doll MD Service: ? Author Type: Physician Type: Progress Notes Filed: 09/26/2021 10:26 AM Note Text: Carol Ann Orellana is a 76 year old female here for bilateral leg swelling and cramping HPI: This is a patient who when asked today what her primary issues are states that her major issue with both lower extremities is swelling. She states that this is to the point that her legs completely ballooned up if she is not in her compression socks which she says she would normally have on and routinely wears. At this point in time she also does state though that she does get cramping in the legs and this cramping can occur when she is at rest or get worse when she exercises and therefore there may be an element of claudication here. There does not appear to be a specific distance or 6 length of time that the patient has to walk to cause a problem. She has no true rest pain and has no evidence of any history of tissue loss. MEDICATIONS: Current Outpatient Medications Medication Sig Dispense Refill - iron/vitamin B complex (GERITOL ORAL) Take by mouth. - tolterodine ER (DETROL LA) 4 mg 24 hr capsule Take 1 capsule by mouth once daily. 30 capsule 11 - mirabegron (MYRBETRIQ) 25 mg Tb24 Take 1 tablet by mouth once daily. 30 tablet 11 - phenazopyridine (PYRIDIUM) 200 mg tablet Take 1 tablet by mouth three times daily as needed. 60 tablet 1 - Diclofenac Sodium (SOLARAZE) 3 % gel diclofenac sodium 3 % gel - lidocaine-methyl lisa-menthol 5-10-3 % ktop lidocaine 5 % oint - fluticasone (FLOVENT HFA) 220 mcg/actuation inhaler flovent hfa 220 mcg/act aero - HYDROcodone-Acetaminophen (NORCO) 10-325 mg per tablet Take 1 tablet by mouth every 8 hours as needed. - methylphenidate (RITALIN) 20 mg tablet Take 20 mg by mouth twice daily. - levothyroxine (SYNTHROID) 50 mcg tablet Take 50 mcg by mouth daily before breakfast. - nebivolol (BYSTOLIC) 5 mg tablet Take 5 mg by mouth once daily. - ergocalciferol, vitamin D2, (VITAMIN D) 50,000 unit capsule Take 50,000 Units by mouth once each week. - meclizine (ANTIVERT) 25 mg tab Take 25 mg by mouth as needed. For dizziness - diclofenac sodium(VOLTAREN 1 % TOPICAL GEL) apply 4 grams 4 times daily 1 6 - pregabalin(LYRICA 75 MG CAP) 0 - alprazolam(XANAX 0.5 MG TAB) Take one(1) tablet three(3) times daily. 0 - nitrofurantoin monohydrate and macrocrystal (MACROBID) 100 mg capsule TAKE 1 CAPSULE EVERY 12 HOURS for 7 days. Take with meal/food. (Patient not taking: Reported on 09/26/2021) - amoxicillin (POLYMOX, AMOXIL) 500 mg capsule Take 500 mg by mouth twice daily. (Patient not taking: Reported on 08/20/2021 ) - iv contrast (will be provided with radiology test) CT Urogram WO/W Inject, intravenously, once for 1 dose.No IV access, insert saline lock prior to the beginning of sedation, infusion, injection of imaging exam. Discontinue saline lock post exam. If Pt. has a central line or IVAD, may access for administration according to line specific nursing protocol. Once exam is complete flush line and de-access according to line specific nursing protocol in the CT contrast administration guidelines link. (Patient not taking: Reported on 09/26/2021 ) 1 Each 0 - estradiol (ESTRACE) 0.01 % (0.1 mg/gram) vaginal cream use one gram VAGINALLY three times per week (Patient not taking: Reported on 05/21/2021) 3 No current facility-administered medications for this visit. ALLERGIES Allergen Reactions - Oxycodone-Acetamino* Other: See Comments - Cortisone - Iv Dye [Iodinated C* Rash - Sulfa (Sulfonamide * BP 118/64 Pulse 68 Resp 16 Ht 5' 1" (1.55m) Wt 155 lb (70.3kg) BMI 29.30 kg/(m2). PHYSICAL EXAM: Well-developed well-nourished female alert and oriented person place and time in no acute distress at the time of the examination. Bilaterally she has very mild swelling of the feet and ankles. She does not have any specific changes of venous stasis brawny induration or ulceration. She has easily palpable dorsal pedal pulses and less easily detected but definitely present posterior tibial pulses. The pulses may be slightly stronger on the left than on the right but this is subjective only. Capillary refill is normal. ASSESSMENT: Patient symptoms are consistent with claudication and bilateral venous insufficiency. PLAN: With regards to her claudication symptoms I think at like to go ahead and proceed with lower extremity arterial Dopplers with treadmill testing. If the patient cannot tolerate the treadmill then we can do them simply as a resting exam but I would like to be sure that there is no evidence of any type of specific vascular insufficiency that could be causing her claudication. She does have some mild to moderate swelling on exam today and therefore my thoughts are that compression is exactly what she needs. She states that she does wear this up to her thigh high level (more content not included)...[facility]01-04-2022 NoteHNO ID: [id number] Author: Barb Garsia APRN.NUCLEAR FUEL PROCESSING TECHNICIAN Service: ? Author Type: Nurse Practitioner Type: Progress Notes Filed: 09/17/2021 6:12 PM Note Text: ESTABLISHED PATIENT OFFICE VISIT HISTORY OF PRESENT ILLNESS Carol Ann Orellana is a 76 year old female who presents today in f/u. Patient with a history of urgency and urge incontinence. She presents today in follow-up after an ER visit on September 10, 2021. Cystoscopy with Dr. Retana on August 20, 2021, was normal. Patient was seen in the emergency room at [facility] with complaints of abdominal pain and nausea. Positive urine culture at that time, E. coli, patient was started on Macrobid. She is currently taking this antibiotic now. She states that her symptoms are somewhat better. CT abdomen and pelvis without IV contrast done in the ER and showed: right-sided hydronephrosis and hydroureter. The right ureter is dilated to the level of the crossing iliac vessel. No significant perinephric or periureteral inflammatory stranding. The right ureter distal to the crossing iliac vessels not well visualized. No visualized obstructing stone. Patient denies any gross hematuria. No dysuria. No fever or chills. She states that she is very tired. She complains of bilateral lower extremity edema. She is scheduled to see Dr. Doll next week and will start. We will have her discuss the concerning compression of the iliac vessels with him. We will have her continue her antibiotic for now. She would like to follow-up with Dr. Retana to discuss the hydronephrosis. LAB RESULTS Creatinine Date Value Ref Range Status 05/06/2019 0.72 0.58 - 0.96 mg/dL Final No results found for: PSA Color (no units) Date Value 06/08/2019 YELLOW Glucose, Urine (mg/dL) Date Value 06/08/2019 NEGATIVE Bilirubin, Urine (no units) Date Value 06/08/2019 NEGATIVE Ketones, Urine (mg/dL) Date Value 06/08/2019 NEGATIVE Specific [place], Ur (no units) Date Value 06/08/2019 1.015 pH, Urine (no units) Date Value 06/08/2019 5.5 Protein, Urine (mg/dL) Date Value 06/08/2019 NEGATIVE Nitrites Urine (no units) Date Value 06/08/2019 NEGATIVE Leukocytes Esterase (no units) Date Value 06/08/2019 MODERATE MEDICATIONS: nitrofurantoin monohydrate and macrocrystal (MACROBID) 100 mg capsule TAKE 1 CAPSULE EVERY 12 HOURS for 7 days. Take with meal/food. iron/vitamin B complex (GERITOL ORAL) Take by mouth. tolterodine ER (DETROL LA) 4 mg 24 hr capsule Take 1 capsule by mouth once daily. mirabegron (MYRBETRIQ) 25 mg Tb24 Take 1 tablet by mouth once daily. Diclofenac Sodium (SOLARAZE) 3 % gel diclofenac sodium 3 % gel lidocaine-methyl lisa-menthol 5-10-3 % ktop lidocaine 5 % oint HYDROcodone-Acetaminophen (NORCO) 10-325 mg per tablet Take 1 tablet by mouth every 8 hours as needed. methylphenidate (RITALIN) 20 mg tablet Take 20 mg by mouth twice daily. levothyroxine (SYNTHROID) 50 mcg tablet Take 50 mcg by mouth daily before breakfast. nebivolol (BYSTOLIC) 5 mg tablet Take 5 mg by mouth once daily. ergocalciferol, vitamin D2, (VITAMIN D) 50,000 unit capsule Take 50,000 Units by mouth once each week. meclizine (ANTIVERT) 25 mg tab Take 25 mg by mouth as needed. For dizziness pregabalin(LYRICA 75 MG CAP) alprazolam(XANAX 0.5 MG TAB) Take one(1) tablet three(3) times daily. amoxicillin (POLYMOX, AMOXIL) 500 mg capsule Take 500 mg by mouth twice daily. phenazopyridine (PYRIDIUM) 200 mg tablet Take 1 tablet by mouth three times daily as needed. iv contrast (will be provided with radiology test) CT Urogram WO/W Inject, intravenously, once for 1 dose.No IV access, insert saline lock prior to the beginning of sedation, infusion, injection of imaging exam. Discontinue saline lock post exam. If Pt. has a central line or IVAD, may access for administration according to line specific nursing protocol. Once exam is complete flush line and de-access according to line specific nursing protocol in the CT contrast administration guidelines link. fluticasone (FLOVENT HFA) 220 mcg/actuation inhaler flovent hfa 220 mcg/act aero estradiol (ESTRACE) 0.01 % (0.1 mg/gram) vaginal cream use one gram VAGINALLY three times per week diclofenac sodium(VOLTAREN 1 % TOPICAL GEL) apply 4 grams 4 times daily REVIEW OF SYSTEMS CONSTITUTIONAL: Patient reports no recent fever or weight loss CARDIOVASCULAR: No chest pain, palpitations or ankle edema. RESPIRATORY: No wheezing, frequent cough or shortness of breath GENITOURINARY: See HPI HISTORIES PAST MEDICAL HISTORY Diagnosis Date - Bladder infection - Breast cancer (HCC) - GERD (gastroesophageal reflux disease) - Kidney stones - Migraines - Neurogenic bladder - Osteoarthrosis, unspecified whether generalized or localized, other specified sites - Osteoporosis - Other and unspecified disc disorder of unspecified region Intervertebral disc disorders - DIAMOND (stress urinar (more content not included)...[facility] 08-20-2021 NoteHNO ID: [id number] Author: Joseph Retana MD Service: ? Author Type: Physician Type: Procedures Filed: 08/20/2021 2:17 PM Note Text: CYSTOSCOPY PROCEDURE NOTE: Carol Ann Orellana is a 76 year old female who presents with urgencyfor a cystoscopy. Pt ID verified with patient: Yes Procedure verified with patient: Yes Procedure confirmed with physician and learning support services director: Yes Sign In: History and Physical Exam reviewed and is unchanged. Primary Diagnosis: Urge Incontinence Informed Consent Discussed: Yes. Risks, benefits, alternatives and personnel discussed with patient who consents to proceed. Sign in Communication: Completed Time Out: Team Confirms the Correct Patient, Correct Procedure; Cystoscopy and RUG, Correct Site and Site Marking, Correct Position (if applicable). Fire Safety Check List Reviewed: Yes Affirmation of Time Out: Yes Sign Out: Sign Out Discussion: Completed Physician: Joseph Retana MD A urinalysis was performed revealing no evidence of infection. The benefits, risks, alternatives of the cystoscopy procedure and personnel were discussed with the patient. The verbal consent was obtained and the patient agrees to proceed. Procedure: The patient was placed on the procedure table in the supine position and prepped and draped in the usual sterile fashion. 2% Lidocaine Jelly was placed per urethra as an anesthetic in the standard fashion. Once adequate local anesthesia was achieved, the tip of the Rigid cystoscope was carefully placed into the urethra under direct visual guidance. The scope was negotiated per urethra with no evidence of stricture into the bladder. Careful marinelli endoscopy was carried out. The posterior, superior and lateral gracia and dome of the bladder were all well visualized and the scope was retroflexed upon itself. The findings were consistent with no evidence of bladder mucosal pathology. At the conclusion of the procedure, the Rigid cystoscope was removed atraumatically. The patient tolerated the procedure without complications. Patient was given standard post-procedure instructions, and was directed to complete the course of oral antibiotics and increase oral fluid intake as directed. ASSESSMENT/PLAN: (N39.41) Urge incontinence (primary encounter diagnosis) Patient started on [facility]09-07-2021 NoteHNO ID: [id number] Author: Joseph Retana MD Service: ? Author Type: Physician Type: Progress Notes Filed: 05/21/2021 12:17 PM Note Text: ESTABLISHED PATIENT VISIT HPI Carol Ann Orellana is a 75 year old female who presents Urinary urgency. She currently on Amoxil 500 mg qd given by PCP to calm bladder down. Patient was having intermittent difficulty emptying every 2 months and would then develop urge incontinence. Mild urgency - primary care has put her on amoxicillin bid for the past 6 weeks every day. She is going to start Myrbetriq for the OAB symptoms. URINE POC GLUCOSE UA (POCT) Negative 05/21/2021 BILIRUBIN UA (POCT) Negative 05/21/2021 KETONE UA (POCT) Negative 05/21/2021 SPECIFIC GRAVITY UA (POCT) 1.015 05/21/2021 HEMOGLOBIN/BLOOD UA (POCT) Trace-lysed 05/21/2021 PH UA (POCT) 5.0 05/21/2021 PROTEIN UA (POCT) Negative 05/21/2021 UROBILINOGEN UA (POCT) 0.2 05/21/2021 NITRITE UA (POCT) Negative 05/21/2021 LEUKOCYTES UA (POCT) Moderate 05/21/2021 COLOR UA (POCT) Yellow 05/21/2021 CLARITY UA (POCT) Cloudy 05/21/2021 REVIEW OF SYSTEMS GENERAL:No weight loss, malaise or fevers, No weight loss, malaise or fevers., SEE HPI GENITOURINARY: See HPI CONSTITUTIONALl: No recent fever or weight loss Do you leak with cough, sneeze or exercise No Do you leak with urgency such as getting to the restroom on time or with running water once or twice How many times do you urinate during the day sometimes only once and other days 5- 10 How many times do you get up to urinate at night 2 How many pads do you wear during the day No Do you wear pads at night No Do you have fecal urgency No Do you have fecal incontinence No Do you have pain with intercourse N/A Do you have urinary leakage with intercourse No What medications have you tried to help your leakage N/A What surgeries have you had for the above symptoms Bladder sling ALLERGIES Allergen Reactions - Oxycodone-Acetamino* Other: See Comments - Cortisone - Iv Dye [Iodinated C* Rash - Sulfa (Sulfonamide * HISTORIES PAST MEDICAL HISTORY Diagnosis Date - Bladder infection - Breast cancer (HCC) - GERD (gastroesophageal reflux disease) - Kidney stones - Migraines - Neurogenic bladder - Osteoarthrosis, unspecified whether generalized or localized, other specified sites - Osteoporosis - Other and unspecified disc disorder of unspecified region Intervertebral disc disorders - DIAMOND (stress urinary incontinence, female) - Thyroid disease - Urethral hypermobility - Urge incontinence - Urgency of urination FAMILY HISTORY Problem Relation Age of Onset - Diabetes Mother - Stroke Mother - Hypertension Mother - Heart Father - Hypertension Father - Heart disease Brother - Diabetes Brother Social History Tobacco Use - Smoking status: Former Smoker Years: 15.00 Types: Cigarettes - Smokeless tobacco: Never Used Substance Use Topics - Alcohol use: No - Drug use: No MEDICATIONS: iv contrast (will be provided with radiology test) CT Urogram WO/W Inject, intravenously, once for 1 dose.No IV access, insert saline lock prior to the beginning of sedation, infusion, injection of imaging exam. Discontinue saline lock post exam. If Pt. has a central line or IVAD, may access for administration according to line specific nursing protocol. Once exam is complete flush line and de-access according to line specific nursing protocol in the CT contrast administration guidelines link. Diclofenac Sodium (SOLARAZE) 3 % gel diclofenac sodium 3 % gel lidocaine-methyl lisa-menthol 5-10-3 % ktop lidocaine 5 % oint HYDROcodone-Acetaminophen (NORCO) 10-325 mg per tablet Take 1 tablet by mouth every 8 hours as needed. methylphenidate (RITALIN) 20 mg tablet Take 20 mg by mouth twice daily. levothyroxine (SYNTHROID) 50 mcg tablet Take 50 mcg by mouth daily before breakfast. nebivolol (BYSTOLIC) 5 mg tablet Take 5 mg by mouth once daily. ergocalciferol, vitamin D2, (VITAMIN D) 50,000 unit capsule Take 50,000 Units by mouth once each week. meclizine (ANTIVERT) 25 mg tab Take 25 mg by mouth as needed. For dizziness diclofenac sodium(VOLTAREN 1 % TOPICAL GEL) apply 4 grams 4 times daily pregabalin(LYRICA 75 MG CAP) alprazolam(XANAX 0.5 MG TAB) Take one(1) tablet three(3) times daily. phenazopyridine (PYRIDIUM) 200 mg tablet Take 1 tablet by mouth three times daily as needed. fluticasone (FLOVENT HFA) 220 mcg/actuation inhaler flovent hfa 220 mcg/act aero estradiol (ESTRACE) 0.01 % (0.1 mg/gram) vaginal cream use one gram VAGINALLY three times per week Physical Exam There were no vitals taken for this visit. ASSESSMENT/PLAN: (N39.41) Urge incontinence (primary encounter diagnosis) (R35.0) [facility] of [facility] Narrative* Problem Noted Date Resolved Date LYMPHADENOPATHY 08/18/2005 02/11/2017 documented as of this encounter (statuses as of 12/12/2021) [facility]12-05-2005 History of Past illness Narrative* Problem Noted Date Resolved Date LYMPHADENOPATHY 08/18/2005 02/11/2017 documented as of this encounter (statuses as of 01/07/2022) [facility]12-05-2005 History of Past illness Narrative* Problem Noted Date Resolved Date LYMPHADENOPATHY 08/18/2005 02/11/2017 documented as of this encounter (statuses as of 01/10/2022) [facility]12-05-2005 History of Past illness Narrative* Problem Noted Date Resolved Date LYMPHADENOPATHY 08/18/2005 02/11/2017 documented as of this encounter (statuses as of 02/26/2022) [address]05-2005 History of Past illness Narrative* Problem Noted Date Resolved Date LYMPHADENOPATHY 08/18/2005 02/11/2017 documented as of this encounter (statuses as of 03/13/2022) [address]05-2005 History of Past illness Narrative* Problem Noted Date Resolved Date LYMPHADENOPATHY 08/18/2005 02/11/2017 documented as of this encounter (statuses as of 05/08/2022) [address]05-2005 History of Past illness Narrative* Problem Noted Date Resolved Date LYMPHADENOPATHY 08/18/2005 02/11/2017 documented as of this encounter (statuses as of 06/26/2022) [address]05-2005 History of Past illness Narrative* Problem Noted Date Resolved Date LYMPHADENOPATHY 08/18/2005 02/11/2017 documented as of this encounter (statuses as of 2022) [address] History of Past illness Narrative* Problem Noted Date Resolved Date LYMPHADENOPATHY 08/18/2005 02/11/2017 documented as of this encounter (statuses as of 10/03/2022) [address] History of Past illness Narrative* Problem Noted Date Resolved Date LYMPHADENOPATHY 08/18/2005 02/11/2017 documented as of this encounter (statuses as of 11/04/2022) [facility]05-2005 History of Past illness Narrative* Problem Noted Date Resolved Date LYMPHADENOPATHY 08/18/2005 02/11/2017 documented as of this encounter (statuses as of 11/17/2022) [address] History of Past illness Narrative* Problem Noted Date Resolved Date LYMPHADENOPATHY 08/18/2005 02/11/2017 documented as of this encounter (statuses as of 11/27/2022) [address] History of Past illness Narrative* Problem Noted Date Resolved Date LYMPHADENOPATHY 08/18/2005 02/11/2017 documented as of this encounter (statuses as of 12/03/2022) [address]2005 History of Past illness Narrative* Problem Noted Date Resolved Date LYMPHADENOPATHY 08/18/2005 02/11/2017 documented as of this encounter (statuses as of 12/16/2022) [address] History of Past illness Narrative* Problem Noted Date Resolved Date LYMPHADENOPATHY 08/18/2005 02/11/2017 documented as of this encounter (statuses as of 12/19/2022) [address] History of Past illness Narrative* Problem Noted Date Resolved Date LYMPHADENOPATHY 08/18/2005 02/11/2017 documented as of this encounter (statuses as of 12/27/2022) [facility]-05-2005 History of Past illness Narrative* Problem Noted Date Resolved Date LYMPHADENOPATHY 08/18/2005 02/11/2017 documented as of this encounter (statuses as of 02/10/2023) [address] History of Past illness Narrative* Problem Noted Date Resolved Date LYMPHADENOPATHY 08/18/2005 02/11/2017 documented as of this encounter (statuses as of 02/27/2023) [facility]-2005 History of Past illness Narrative* Problem Noted Date Resolved Date LYMPHADENOPATHY 08/18/2005 02/11/2017 documented as of this encounter (statuses as of 03/03/2023) [address] History of Past illness Narrative* Problem Noted Date Diagnosed Date Resolved Date LYMPHADENOPATHY 08/18/2005 02/11/2017 documented as of this encounter (statuses as of 03/26/2023) [facility]12-[facility]-2005 History of Past illness Narrative* Problem Noted Date Diagnosed Date Resolved Date LYMPHADENOPATHY 08/18/2005 02/11/2017 documented as of this encounter (statuses as of 04/15/2023) [facility]-2005 History of Past illness Narrative* Problem Noted Date Diagnosed Date Resolved Date LYMPHADENOPATHY 08/18/2005 02/11/2017 documented as of this encounter (statuses as of 04/21/2023) [address] History of Past illness Narrative* Problem Noted Date Diagnosed Date Resolved Date LYMPHADENOPATHY 08/18/2005 02/11/2017 documented as of this encounter (statuses as of 05/01/2023) [address] History of Past illness Narrative* Problem Noted Date Diagnosed Date Resolved Date LYMPHADENOPATHY 08/18/2005 02/11/2017 documented as of this encounter (statuses as of 06/09/2023) [address] History of Past illness Narrative* Problem Noted Date Diagnosed Date Resolved Date LYMPHADENOPATHY 08/18/2005 02/11/2017 documented as of this encounter (statuses as of 06/24/2023) [address] History of Past illness Narrative* Problem Noted Date Diagnosed Date Resolved Date LYMPHADENOPATHY 08/18/2005 02/11/2017 documented as of this encounter (statuses as of 06/26/2023) [address] History of Past illness Narrative* Problem Noted Date Diagnosed Date Resolved Date LYMPHADENOPATHY 08/18/2005 02/11/2017 documented as of this encounter (statuses as of 06/26/2023) [address] History of Past illness Narrative* Problem Noted Date Diagnosed Date Resolved Date LYMPHADENOPATHY 08/18/2005 02/11/2017 documented as of this encounter (statuses as of 06/26/2023) [facility]2005 History of Past illness Narrative* Problem Noted Date Diagnosed Date Resolved Date LYMPHADENOPATHY 08/18/2005 02/11/2017 documented as of this encounter (statuses as of 07/29/2023) [facility]2005 History of Past illness Narrative* Problem Noted Date Diagnosed Date Resolved Date LYMPHADENOPATHY 08/18/2005 02/11/2017 documented as of this encounter (statuses as of 2023) [facility]2005 History of Past illness Narrative* Problem Noted Date Diagnosed Date Resolved Date LYMPHADENOPATHY 08/18/2005 02/11/2017 documented as of this encounter (statuses as of 2023) [facility]2005 History of Past illness Narrative* Problem Noted Date Diagnosed Date Resolved Date LYMPHADENOPATHY 08/18/2005 02/11/2017 documented as of this encounter (statuses as of 09/03/2023) [address] History of Past illness Narrative* Problem Noted Date Diagnosed Date Resolved Date LYMPHADENOPATHY 08/18/2005 02/11/2017 documented as of this encounter (statuses as of 09/04/2023) [facility]2005 History of Past illness Narrative* Problem Noted Date Diagnosed Date Resolved Date LYMPHADENOPATHY 08/18/2005 02/11/2017 documented as of this encounter (statuses as of 10/21/2023) [facility]2005 History of Past illness Narrative* Problem Noted Date Diagnosed Date Resolved Date LYMPHADENOPATHY 08/18/2005 02/11/2017 documented as of this encounter (statuses as of 10/23/2023) [address] History of Past illness Narrative* Problem Noted Date Diagnosed Date Resolved Date LYMPHADENOPATHY 08/18/2005 02/11/2017 documented as of this encounter (statuses as of 11/03/2023) [address] History of Past illness Narrative* Problem Noted Date Diagnosed Date Resolved Date LYMPHADENOPATHY 08/18/2005 02/11/2017 documented as of this encounter (statuses as of 11/05/2023) [address] History of Past illness Narrative* Problem Noted Date Diagnosed Date Resolved Date LYMPHADENOPATHY 08/18/2005 02/11/2017 documented as of this encounter (statuses as of 11/06/2023) [address]2005 History of Past illness Narrative* Problem Noted Date Diagnosed Date Resolved Date LYMPHADENOPATHY 08/18/2005 02/11/2017 documented as of this encounter (statuses as of 11/06/2023) [address] History of Past illness Narrative* Problem Noted Date Diagnosed Date Resolved Date LYMPHADENOPATHY 08/18/2005 02/11/2017 documented as of this encounter (statuses as of 11/06/2023) [place] [address]05[address]2005 History of Past illness Narrative* Problem Noted Date Diagnosed Date Resolved Date LYMPHADENOPATHY 08/18/2005 02/11/2017 documented as of this encounter (statuses as of 12/30/2023) [place] [address]05[address]2005 History of Past illness Narrative* Problem Noted Date Diagnosed Date Resolved Date LYMPHADENOPATHY 08/18/2005 02/11/2017 documented as of this encounter (statuses as of 12/31/2023) [facility] Appointment Date:07/08/2021 02:15:00 PM Scheduled Provider:ASPEN AVINA MD Location: [place] Appointment Type:GS OV Appointment Date:07/10/2021 01:20:00 PM Scheduled Provider:RICARDO RUIZ DO Location:[facility] Appointment Type:PC OV Controlled Medication Future Scheduled Tests Radiology* XR Chest 2 Views (PA & Lateral) 03/27/21 * MA Mammo Screening Left w/ Ab 04/04/21 [facility] Evaluation + Plan note Future Appointments Appointment Date:12/02/2021 04:30:00 PM Scheduled Provider: Location:[facility] Appointment Type:MRI Cardiac Morphology Func W+W/O Cont Appointment Date:12/04/2021 10:00:00 AM Scheduled Provider:RICARDO RUIZ DO Location:[facility] [place] Appointment Type:PC OV Controlled Medication Appointment Date:01/06/2022 11:00:00 AM Scheduled Provider: Location:[facility] [place] Appointment Type:CV OV Appointment Date:01/06/2022 01:30:00 PM Scheduled Provider:ASPEN AVINA MD Location:[facility] [place] Appointment Type:GS OV Future Scheduled Tests Laboratory* Basic Metabolic Panel 12/02/21 Radiology* XR Chest 2 Views (PA & Lateral) 03/27/21 * MRI Cardiac Morphology & Func W+W/O Cont 12/02/21 * MA Mammo Screening Left w/ Ab 04/04/21 [facility] Evaluation + Plan note Future Appointments Appointment Date:01/06/2022 11:00:00 AM Scheduled Provider: Location:[facility] [place] Appointment Type:CV OV Appointment Date:01/06/2022 01:30:00 PM Scheduled Provider:ASPEN AVINA MD Location:[facility] [place] Appointment Type:GS OV Appointment Date:02/26/2022 11:00:00 AM Scheduled Provider:RICARDO RUIZ DO Location:[facility] [place] Appointment Type:PC OV Controlled Medication Future Scheduled Tests Radiology* XR Chest 2 Views (PA & Lateral) 03/27/21 * MA Mammo Screening Left w/ Ab 04/04/21 [facility] Evaluation + Plan note Future Appointments Appointment Date:01/31/2022 09:30:00 AM Scheduled Provider:ASPEN AVINA MD Location:[facility] [place] Appointment Type:GS OV Follow Up Appointment Date:02/26/2022 11:00:00 AM Scheduled Provider:RICARDO RUIZ DO Location:[facility] [place] Appointment Type:PC OV Controlled Medication Future Scheduled Tests Laboratory* Basic Metabolic Panel 01/13/22 * N-Terminal proBNP 01/13/22 Radiology* MA Mammo Screening Left w/ Ab 04/04/21 * MA Mammo Screening Left w/ Ab 06/11/22 * XR Chest 2 Views (PA & Lateral) 03/27/21 [facility] Evaluation + Plan note Future Appointments Appointment Date:02/26/2022 11:00:00 AM Scheduled Provider:RICARDO RUIZ DO Location:[facility] [place] Appointment Type:PC OV Controlled Medication Appointment Date:05/02/2022 09:00:00 AM Scheduled Provider:ASPEN AVINA MD Location:[facility] [place] Appointment Type:GS OV Follow Up Future Scheduled Tests Radiology* MA Mammo Screening Left w/ Ab 04/04/21 * MA Mammo Screening Left w/ Ab 06/11/22 * XR Chest 2 Views (PA & Lateral) 03/27/21 [facility] Evaluation + Plan note Future Appointments Appointment Date:06/04/2022 11:30:00 AM Scheduled Provider:RICARDO RUIZ DO Location:[facility] [place] Appointment Type:PC OV Controlled Medication Future Scheduled Tests Radiology* MA Mammo Screening Left w/ Ab 06/11/22 [facility] Evaluation + Plan note Future Appointments Appointment Date:09/03/2022 10:30:00 AM Scheduled Provider:RICARDO RUIZ DO Location:[facility] [place] Appointment Type:PC OV Controlled Medication Future Scheduled Tests Radiology* MA Mammo Screening Left w/ Ab 06/11/22 [facility] Evaluation + Plan note Future Appointments Appointment Date:08/29/2022 02:50:00 PM Scheduled Provider:RICARDO RUIZ DO Location:[facility] [place] Appointment Type:PC OV Controlled Medication Appointment Date:01/16/2023 11:30:00 AM Scheduled Provider:NATASHA FREEDMAN Location:[facility] [place] Appointment Type:BS OV Follow Up Future Scheduled Tests Laboratory* Iron Level 07/11/22 * Vitamin B12 Level 07/11/22 * Complete Blood Count 07/11/22 Radiology* MA Mammo Screening Left w/ Ab 06/11/22 [facility] Evaluation + Plan note Future Appointments Appointment Date:08/20/2022 10:00:00 AM Scheduled Provider: Location:[facility] Appointment Type:OT Outpatient Lymph Evaluation Appointment Date:08/29/2022 02:50:00 PM Scheduled Provider:RICARDO RUIZ DO Location:[facility] [place] Appointment Type:PC OV Controlled Medication Appointment Date:01/16/2023 11:30:00 AM Scheduled Provider:NATASHA FREEDMAN Location:[facility] [place] Appointment Type:BS OV Follow Up Future Scheduled Tests Radiology* MA Mammo Screening Left w/ Ab 06/11/22 [facility] Evaluation + Plan note Future Appointments Appointment Date:10/20/2022 10:50:00 AM Scheduled Provider:RICARDO RUIZ DO Location:[facility] Appointment Type:PC OV Appointment Date:11/12/2022 09:00:00 AM Scheduled Provider: Location:[facility] [place] Appointment Type:CV OV Appointment Date:11/24/2022 02:20:00 PM Scheduled Provider:RICARDO RUIZ DO Location:[facility] Appointment Type:PC OV Appointment Date:11/26/2022 11:30:00 AM Scheduled Provider:LAURA CAGE MD Location:[facility] Appointment Type:RO Follow Up 30 Appointment Date:12/26/2022 09:30:00 AM Scheduled Provider:ASPEN AVINA MD Location:[facility] [place] Appointment Type:GS OV Recheck Appointment Date:01/16/2023 11:30:00 AM Scheduled Provider:NATASHA FREEDMAN Location:[facility] [place] Appointment Type:BS OV Follow Up Future Scheduled Tests Laboratory* Basic Metabolic Panel 10/15/22 Radiology* MA Mammo Screening Left w/ Ab 06/11/22 * US Renal 10/15/22 [facility] Evaluation + Plan note Future Appointments Appointment Date:10/24/2022 10:45:00 AM Scheduled Provider: Location:[facility] Appointment Type:CV OV Appointment Date:10/29/2022 09:30:00 AM Scheduled Provider:RICARDO RUIZ DO Location:[facility] [place] Appointment Type:PC OV Appointment Date:11/06/2022 11:00:00 AM Scheduled Provider: Location:[facility] Appointment Type:VL AOH - Renal Artery US/Doppler Complet Appointment Date:11/12/2022 09:00:00 AM Scheduled Provider: Location:[facility] [place] Appointment Type:CV OV Appointment Date:11/12/2022 10:30:00 AM Scheduled Provider: Location:[facility] Appointment Type:US Renal Appointment Date:11/24/2022 02:20:00 PM Scheduled Provider:RICARDO RUIZ DO Location:[facility] Appointment Type:PC OV Appointment Date:11/26/2022 11:30:00 AM Scheduled Provider:LAURA CAGE MD Location:[facility] Appointment Type:RO Follow Up 30 Appointment Date:12/26/2022 09:30:00 AM Scheduled Provider:ASPEN AVINA MD Location:[facility] [place] Appointment Type:GS OV Recheck Appointment Date:01/16/2023 11:30:00 AM Scheduled Provider:NATASHA FREEDMAN Location:[facility] Appointment Type:BS OV Follow Up Future Scheduled Tests Laboratory* Basic Metabolic Panel 10/27/22 Radiology* MA Mammo Screening Left w/ Ab 06/11/22 * US Renal 11/12/22 [facility] Evaluation + Plan note Future Appointments Appointment Date:11/24/2022 02:20:00 PM Scheduled Provider:RICARDO RIUZ DO Location:[facility] Appointment Type:PC OV Appointment Date:11/26/2022 10:00:00 AM Scheduled Provider: Location:[facility] Appointment Type:CV OV 24 Hour BP Monitor Appointment Date:11/26/2022 11:30:00 AM Scheduled Provider:LAURA CAGE MD Location:[facility] Appointment Type:RO Follow Up 30 Appointment Date:12/26/2022 09:30:00 AM Scheduled Provider:ASPEN AVINA MD Location:[facility] [place] Appointment Type:GS OV Recheck Appointment Date:01/16/2023 11:30:00 AM Scheduled Provider:NATASHA FREEDMAN Location:[facility] Appointment Type:BS OV Follow Up Future Scheduled Tests Laboratory* Basic Metabolic Panel 11/19/22 * Basic Metabolic Panel 10/27/22 Radiology* MA Mammo Screening Left w/ Ab 06/11/22 [facility] Evaluation + Plan note Future Appointments Appointment Date:12/02/2022 01:00:00 PM Scheduled Provider: Location:[facility] Appointment Type:US Axilla Right Appointment Date:12/10/2022 08:45:00 AM Scheduled Provider:LAURA CAGE MD Location:[facility] Appointment Type:RO Follow Up 15 Appointment Date:12/25/2022 09:30:00 AM Scheduled Provider:RICARDO RUIZ DO Location:[facility] Appointment Type:PC OV Appointment Date:01/02/2023 09:45:00 AM Scheduled Provider:ASPEN AVINA MD Location:[facility] [place] Appointment Type:GS OV Recheck Appointment Date:01/16/2023 11:30:00 AM Scheduled Provider:NATASHA FREEDMAN Location:[facility] Appointment Type:BS OV Follow Up Appointment Date:02/23/2023 01:35:00 PM Scheduled Provider:RICARDO RUIZ DO Location:[facility] Appointment Type:PC OV Controlled Medication Future Scheduled Tests Laboratory* Basic Metabolic Panel 11/19/22 * Basic Metabolic Panel 10/27/22 Radiology* MA Mammo Screening Left w/ Ab 06/11/22 * US Axilla Right 12/02/22 [facility] Evaluation + Plan note Future Appointments Appointment Date:12/10/2022 08:45:00 AM Scheduled Provider:LAURA CAGE MD Location:[facility] Appointment Type:RO Follow Up 15 Appointment Date:12/25/2022 09:30:00 AM Scheduled Provider:RICARDO RUIZ DO Location:[facility] Appointment Type:PC OV Appointment Date:01/02/2023 09:45:00 AM Scheduled Provider:ASPEN AVINA MD Location:[facility] [place] Appointment Type:GS OV Recheck Appointment Date:01/16/2023 11:30:00 AM Scheduled Provider:NATASHA FREEDMAN Location:[facility] Appointment Type:BS OV Follow Up Appointment Date:02/23/2023 01:35:00 PM Scheduled Provider:RICARDO RUIZ DO Location:[facility] Appointment Type:PC OV Controlled Medication Future Scheduled Tests Laboratory* Basic Metabolic Panel 11/19/22 * Basic Metabolic Panel 10/27/22 Radiology* MA Mammo Screening Left w/ Ab 06/11/22 [facility] Evaluation + Plan note Future Appointments Appointment Date:12/25/2022 09:30:00 AM Scheduled Provider:RICARDO RUIZ DO Location:[facility] Appointment Type:PC OV Appointment Date:01/02/2023 09:45:00 AM Scheduled Provider:ASPEN AVINA MD Location:[facility] [place] Appointment Type:GS OV Recheck Appointment Date:01/16/2023 11:30:00 AM Scheduled Provider:NATASHA FREEDMAN Location:[facility] Appointment Type:BS OV Follow Up Appointment Date:02/23/2023 01:35:00 PM Scheduled Provider:RICARDO RUIZ DO Location:[facility] Appointment Type:PC OV Controlled Medication Appointment Date:06/10/2023 10:00:00 AM Scheduled Provider:LAURA CAGE MD Location:[facility] Appointment Type:RO Follow Up 30 Future Scheduled Tests Laboratory* Basic Metabolic Panel 11/19/22 * Basic Metabolic Panel 10/27/22 Radiology* MA Mammo Screening Left w/ Ab 06/11/22 [facility] Evaluation + Plan note Future Appointments Appointment Date:02/23/2023 01:35:00 PM Scheduled Provider:RICARDO RUIZ DO Location:[facility] Appointment Type:PC OV Controlled Medication Appointment Date:06/10/2023 10:00:00 AM Scheduled Provider:LAURA CAGE MD Location:[facility] Appointment Type:RO Follow Up 30 Future Scheduled Tests Laboratory* Basic Metabolic Panel 11/19/22 * Basic Metabolic Panel 10/27/22 Radiology* MA Mammo Screening Left w/ Ab 07/09/23 * MA Mammo Screening Left w/ Ab 06/11/22 [facility] Evaluation + Plan note Future Appointments Appointment Date:06/16/2023 11:30:00 AM Scheduled Provider: Location:[facility] Appointment Type:US Axilla Breast Right Appointment Date:07/20/2023 11:30:00 AM Scheduled Provider: Location:[facility] Appointment Type:MA Mammogram Screening Left w/ Ab Appointment Date:08/24/2023 10:35:00 AM Scheduled Provider:RICARDO RUIZ DO Location:[facility] Appointment Type:PC OV Controlled Medication Appointment Date:12/09/2023 09:30:00 AM Scheduled Provider:LAURA CAGE MD Location:[facility] Appointment Type:RO Follow Up 30 Future Scheduled Tests Laboratory* Basic Metabolic Panel 11/19/22 * Basic Metabolic Panel 10/27/22 Radiology* MA Mammo Screening Left w/ Ab 08/21/23 * MA Mammo Screening Left w/ Ab 07/20/23 * MA Mammo Screening Left w/ Ab 06/11/22 * US Axilla Breast Right 06/16/23 [facility] Evaluation + Plan note Future Appointments Appointment Date:06/18/2023 09:15:00 AM Scheduled Provider:HANANE RODRIGUEZ MD Location:[facility] Appointment Type:[facility] New Patient Appointment Date:06/18/2023 04:30:00 PM Scheduled Provider:RICARDO RUIZ DO Location[facility] Appointment Type:PC OV Appointment Date:07/20/2023 11:30:00 AM Scheduled Provider: Location:[facility] Appointment Type:MA Mammogram Screening Left w/ Ab Appointment Date:08/24/2023 10:35:00 AM Scheduled Provider:RICARDO RUIZ DO Location:[facility] Appointment Type:PC OV Controlled Medication Appointment Date:12/09/2023 09:30:00 AM Scheduled Provider:LAURA CAGE MD Location:[facility] Appointment Type:RO Follow Up 30 Future Scheduled Tests Laboratory* Basic Metabolic Panel 11/19/22 * Basic Metabolic Panel 10/27/22 Radiology* MA Mammo Screening Left w/ Ab 08/21/23 * MA Mammo Screening Left w/ Ab 07/20/23 * MA Mammo Screening Left w/ Ab 06/11/22 [facility] Evaluation + Plan note Future Appointments Appointment Date:07/09/2023 09:30:00 AM Scheduled Provider:RICARDO RUIZ DO Location:[facility] Appointment Type:PC OV Appointment Date:07/20/2023 10:45:00 AM Scheduled Provider:HANANE RODRIGUEZ MD Location:[facility] Appointment Type:[facility] OV Follow Up Appointment Date:07/20/2023 11:30:00 AM Scheduled Provider: Location:[facility] Appointment Type:MA Mammogram Screening Left w/ Ab Appointment Date:08/24/2023 10:35:00 AM Scheduled Provider:RICARDO RUIZ DO Location:[facility] Appointment Type:PC OV Controlled Medication Appointment Date:12/09/2023 09:30:00 AM Scheduled Provider:LAURA CAGE MD Location:[facility] Appointment Type:RO Follow Up 30 Future Scheduled Tests Laboratory* Basic Metabolic Panel 11/19/22 * Basic Metabolic Panel 10/27/22 Radiology* MA Mammo Screening Left w/ Ab 08/21/23 * MA Mammo Screening Left w/ Ab 07/20/23 [facility] Evaluation + Plan note Future Appointments Appointment Date:07/27/2023 01:15:00 PM Scheduled Provider:HANANE RODRIGUEZ MD Location:[facility] Appointment Type:[facility] OV Follow Up Appointment Date:08/24/2023 10:35:00 AM Scheduled Provider:RICARDO RUIZ DO Location:[facility] Appointment Type:PC OV Controlled Medication Appointment Date:12/09/2023 09:30:00 AM Scheduled Provider:LAURA CAGE MD Location:[facility] Appointment Type:RO Follow Up 30 Future Scheduled Tests Laboratory* Basic Metabolic Panel 11/19/22 * Basic Metabolic Panel 10/27/22 Radiology* MA Mammo Screening Left w/ Ab 08/21/23 [facility] Evaluation + Plan note Future Appointments Appointment Date:08/24/2023 10:35:00 AM Scheduled Provider:RICARDO RUIZ DO Location:[facility] Appointment Type:PC OV Controlled Medication Appointment Date:10/28/2023 11:30:00 AM Scheduled Provider:HANANE RODRIGUEZ MD Location:[facility] Appointment Type:[facility] OV Follow Up Appointment Date:12/09/2023 09:30:00 AM Scheduled Provider:LAURA CAGE MD Location:[facility] Appointment Type:RO Follow Up 30 Future Scheduled Tests Laboratory* Basic Metabolic Panel 11/19/22 * Basic Metabolic Panel 10/27/22 * Lactate Dehydrogenase 10/27/23 * Complete Blood Count 10/27/23 * Complete Metabolic Panel 10/27/23 Radiology* MA Mammo Screening Left w/ Ab 08/21/23 [facility] Evaluation + Plan note Future Appointments Appointment Date:12/03/2023 10:30:00 AM Scheduled Provider:RICARDO RUIZ DO Location:[facility] Appointment Type:PC OV Controlled Medication Appointment Date:12/10/2023 09:30:00 AM Scheduled Provider:LAURA CAGE MD Location:[facility] Appointment Type:RO Follow Up 30 Appointment Date:01/25/2024 11:30:00 AM Scheduled Provider:HANANE RODRIGUEZ MD Location:[facility] Appointment Type:[facility] OV Follow Up Future Scheduled Tests Laboratory* Basic Metabolic Panel 11/19/22 * Lactate Dehydrogenase 01/26/24 * Complete Blood Count 01/26/24 * Complete Metabolic Panel 01/26/24 Radiology* MA Mammo Screening Left w/ Ab 08/21/23 [facility] Evaluation + Plan note Future Appointments Appointment Date:01/25/2024 11:45:00 AM Scheduled Provider:HANANE RODRIGUEZ MD Location:[facility] Appointment Type:[facility] OV Follow Up Appointment Date:03/07/2024 11:05:00 AM Scheduled Provider:RICARDO RUIZ DO Location:[facility] Appointment Type:PC OV Controlled Medication Appointment Date:06/09/2024 09:30:00 AM Scheduled Provider:LAURA CAGE MD Location:[facility] Appointment Type:RO Follow Up 30 Future Scheduled Tests Radiology* MA Mammo Screening Left w/ Ab 08/21/23 [facility] evaluation + Plan note Future Appointments Appointment Date:02/03/2024 04:00:00 PM Scheduled Provider:HANANE RODRIGUEZ MD Location:[facility] Appointment Type:[facility] OV Follow Up Appointment Date:03/03/2024 11:30:00 AM Scheduled Provider:RICARDO RUIZ DO Location:[facility] Appointment Type:PC OV Appointment Date:03/07/2024 11:05:00 AM Scheduled Provider:RICARDO RUIZ DO Location:[facility] Appointment Type:PC OV Controlled Medication Appointment Date:06/09/2024 09:30:00 AM Scheduled Provider:LAURA CAGE MD Location:[facility] Appointment Type:RO Follow Up 30 Future Scheduled Tests Radiology* MA Mammo Screening Left w/ Ab 08/21/23 [facility] + Plan note Future Appointments Appointment Date:03/03/2024 11:30:00 AM Scheduled Provider:RICARDO RUIZ DO Location[facility] Appointment Type:PC OV Appointment Date:03/07/2024 11:05:00 AM Scheduled Provider:RICARDO RUIZ DO Location:[facility] Appointment Type:PC OV Controlled Medication Appointment Date:06/09/2024 09:30:00 AM Scheduled Provider:LAURA CAGE MD Location:[facility] Appointment Type:RO Follow Up 30 Future Scheduled Tests Radiology* MA Mammo Screening Left w/ Ab 08/21/23 [facility] + Plan note Future Appointments Appointment Date:03/07/2024 11:05:00 AM Scheduled Provider:RICARDO RUIZ DO Location:[facility] Appointment Type:PC OV Controlled Medication Appointment Date:06/09/2024 09:30:00 AM Scheduled Provider:LAURA CAGE MD Location:[facility] Appointment Type:RO Follow Up 30 Future Scheduled Tests Radiology* MA Mammo Screening Left w/ Ab 08/21/23 [facility] + Plan note Future Appointments Appointment Date:08/29/2024 11:05:00 AM Scheduled Provider:RICARDO RUIZ DO Location:[facility] Appointment Type:PC OV Controlled Medication Appointment Date:12/15/2024 10:30:00 AM Scheduled Provider:LAURA CAGE MD Location:[facility] Appointment Type:RO Follow Up 30 Future Scheduled Tests Radiology* XR Spine Lumbar AP/LAT 06/06/24 [facility] Evaluation + Plan note Future Appointments Appointment Date:08/29/2024 11:05:00 AM Scheduled Provider:RICARDO RUIZ DO Location:[facility] Appointment Type:PC OV Controlled Medication Appointment Date:12/15/2024 10:30:00 AM Scheduled Provider:LAURA CAGE MD Location:[facility] Appointment Type:RO Follow Up 30 [facility] Evaluation + Plan note Future Appointments Appointment Date:10/04/2024 10:30:00 AM Scheduled Provider:HANANE RODRIGUEZ MD Location:[facility] Appointment Type:HEM ONC OV Follow Up Appointment Date:11/21/2024 10:50:00 AM Scheduled Provider:RICARDO RUIZ DO Location:[facility] Appointment Type:PC OV Controlled Medication Appointment Date:12/15/2024 10:30:00 AM Scheduled Provider:LAURA CAGE MD Location:[facility] Appointment Type:RO Follow Up 30 [facility] Evaluation + Plan note Future Appointments Appointment Date:10/04/2024 10:30:00 AM Scheduled Provider:HANANE RODRIGUEZ MD Location:[facility] Appointment Type:HEM ONC OV Follow Up Appointment Date:11/21/2024 10:50:00 AM Scheduled Provider:RICARDO RUIZ DO Location:[facility] Appointment Type:PC OV Controlled Medication Appointment Date:12/15/2024 10:30:00 AM Scheduled Provider:LAURA CAGE MD Location:[facility] Appointment Type:RO Follow Up 30 Diagnostic Tests Pending * Vitamin D Level 09/20/24 Future Scheduled Tests Laboratory* Lactate Dehydrogenase 09/02/24 * Complete Blood Count 09/02/24 * Complete Metabolic Panel 09/02/24 Radiology* US Abdomen Complete 09/20/24 [facility] Evaluation + Plan note Future Appointments Appointment Date:09/30/2024 01:00:00 PM Scheduled Provider:RICARDO RUIZ DO Location:[facility] Appointment Type:PC OV Appointment Date:10/04/2024 10:30:00 AM Scheduled Provider:HANANE RODRIGUEZ MD Location:[facility] Appointment Type:HEM ONC OV Follow Up Appointment Date:11/21/2024 11:00:00 AM Scheduled Provider:RICARDO RUIZ DO Location:[facility] Appointment Type:PC OV Controlled Medication Appointment Date:12/15/2024 10:30:00 AM Scheduled Provider:LAURA CAGE MD Location:[facility] Appointment Type:RO Follow Up 30 Future Scheduled Tests Laboratory* Amylase Level 09/27/24 * Lactate Dehydrogenase 09/02/24 * Lipase Level 09/27/24 * Complete Blood Count 09/02/24 * Complete Metabolic Panel 09/02/24 [facility] Evaluation + Plan note Future Appointments Appointment Date:10/04/2024 10:30:00 AM Scheduled Provider:HANANE RODRIGUEZ MD Location:[facility] Appointment Type:HEM ONC OV Follow Up Appointment Date:11/21/2024 11:00:00 AM Scheduled Provider:RICARDO RUIZ DO Location:[facility] Appointment Type:PC OV Controlled Medication Appointment Date:12/15/2024 10:30:00 AM Scheduled Provider:LAURA CAGE MD Location:[facility] Appointment Type:RO Follow Up 30 Future Scheduled Tests Laboratory* Amylase Level 09/27/24 * Lipase Level 09/27/24 Radiology* XR Upper GI w/ Air Contrast 09/30/24 [facility] Evaluation + Plan note Future Appointments Appointment Date:10/31/2024 11:30:00 AM Scheduled Provider:HANANE RODRIGUEZ MD Location:[facility] Appointment Type:HEM ONC OV Follow Up Appointment Date:11/21/2024 11:00:00 AM Scheduled Provider:RICARDO RUIZ DO Location:[facility] Appointment Type:PC OV Controlled Medication Appointment Date:12/15/2024 10:30:00 AM Scheduled Provider:LAURA CAGE MD Location:[facility] Appointment Type:RO Follow Up 30 Future Scheduled Tests Laboratory* Amylase Level 09/27/24 * Lipase Level 09/27/24 [facility] Evaluation + Plan note Future Appointments Appointment Date:12/26/2024 11:30:00 AM Scheduled Provider:HANANE RODRIGUEZ MD Location:[facility] Appointment Type:HEM ONC OV Follow Up w/MD Appointment Date:02/13/2025 11:00:00 AM Scheduled Provider:RICARDO RUIZ DO Location:[facility] Appointment Type:PC OV Controlled Medication Appointment Date:06/15/2025 11:30:00 AM Scheduled Provider:LAURA CAGE MD Location:[facility] Appointment Type:RO Follow Up Future Scheduled Tests Laboratory* Amylase Level 09/27/24 * Ferritin 12/15/24 * Iron Level 12/15/24 * Lactate Dehydrogenase 12/21/24 * Lipase Level 09/27/24 * Thyroid Stimulating Hormone 12/15/24 * Free T4 12/15/24 * Complete Blood Count 12/15/24 * Complete Blood Count 12/21/24 * Complete Metabolic Panel 12/21/24 * TIBC 12/15/24 [facility] Evaluation + Plan note Future Appointments Appointment Date:01/02/2025 10:00:00 AM Scheduled Provider: Location:[facility] Appointment Type:CT Chest w/ Contrast Appointment Date:01/05/2025 09:45:00 AM Scheduled Provider: Location:[facility]C Appointment Type:PET/CT Initial Staging Tumor Skull Base Appointment Date:02/13/2025 11:00:00 AM Scheduled Provider:RICARDO RUIZ DO Location:[facility] Appointment Type:PC OV Controlled Medication Appointment Date:03/27/2025 10:45:00 AM Scheduled Provider:HANANE RODRIGUEZ MD Location:[facility] Appointment Type:HEM ONC OV Follow Up w/ Appointment Date:06/15/2025 11:30:00 AM Scheduled Provider:LAURA CAGE MD Location:[facility] Appointment Type:RO Follow Up 30 Future Scheduled Tests Laboratory* Amylase Level 09/27/24 * Ferritin 12/15/24 * Iron Level 12/15/24 * Lactate Dehydrogenase 12/21/24 * Lipase Level 09/27/24 * Thyroid Stimulating Hormone 12/15/24 * Free T4 12/15/24 * Complete Blood Count 12/15/24 * Complete Blood Count 03/27/25 * Complete Blood Count 12/21/24 * Complete Metabolic Panel 03/27/25 * Complete Metabolic Panel 12/21/24 * TIBC 12/15/24 Radiology* PET/CT Initial Staging Tumor Skull Base to Mid-Thigh 01/05/25 * CT Thorax w/ Contrast 01/02/25 * XR Shoulder Minimum 2 Views Right 12/26/24 [facility] Evaluation + Plan note Future Appointments Appointment Date:02/13/2025 11:00:00 AM Scheduled Provider:RICARDO RUIZ DO Location:[facility] Appointment Type:PC OV Controlled Medication Appointment Date:03/27/2025 10:45:00 AM Scheduled Provider:HANANE RODRIGUEZ MD Location:[facility] Appointment Type:[facility]M [facility]C OV Follow Up w/MD Appointment Date:06/15/2025 11:30:00 AM Scheduled Provider:LAURA CAGE MD Location:[facility] Appointment Type:RO Follow Up 30 Future Scheduled Tests Laboratory* Amylase Level 09/27/24 * Ferritin 12/15/24 * Iron Level 12/15/24 * Lactate Dehydrogenase 12/21/24 * Lipase Level 09/27/24 * Thyroid Stimulating Hormone 12/15/24 * Free T4 12/15/24 * Complete Blood Count 12/15/24 * Complete Blood Count 03/27/25 * Complete Blood Count 12/21/24 * Complete Metabolic Panel 03/27/25 * Complete Metabolic Panel 12/21/24 * TIBC 12/15/24 Radiology* XR Shoulder Minimum 2 Views Right 12/26/24 [facility] Evaluation + Plan note Future Appointments Appointment Date:02/13/2025 11:00:00 AM Scheduled Provider:RICARDO RUIZ DO Location:[facility] Appointment Type:PC OV Controlled Medication Appointment Date:03/27/2025 10:45:00 AM Scheduled Provider:HANANE RODRIGUEZ MD Location:[facility] Appointment Type:[facility]M [facility]C OV Follow Up Tuan Appointment Date:06/15/2025 11:30:00 AM Scheduled Provider:LAURA CAGE MD Location:[facility] Appointment Type:RO Follow Up Future Scheduled Tests Laboratory* TgAb+Thyroglobulin,CURRY or LCMS 01/21/25 * Amylase Level 09/27/24 * Ferritin 12/15/24 * Iron Level 12/15/24 * Lactate Dehydrogenase 12/21/24 * Lipase Level 09/27/24 * Thyroid Stimulating Hormone 12/15/24 * Thyroid Stimulating Hormone 01/21/25 * Free T4 12/15/24 * Free T4 01/07/25 * Complete Blood Count 12/15/24 * Complete Blood Count 03/27/25 * Complete Blood Count 12/21/24 * Free T3 01/07/25 * Complete Metabolic Panel 03/27/25 * Complete Metabolic Panel 12/21/24 * TIBC 12/15/24 Radiology* XR Shoulder Minimum 2 Views Right 12/26/24 [facility] Evaluation + Plan note Future Appointments Appointment Date:02/13/2025 11:00:00 AM Scheduled Provider:RICARDO RUIZ DO Location:[facility] Appointment Type:PC OV Controlled Medication Appointment Date:02/24/2025 10:00:00 AM Scheduled Provider: Location:IR Appointment Type:IR Thyroid Biopsy Appointment Date:03/27/2025 10:45:00 AM Scheduled Provider:HANANE RODRIGUEZ MD Location:[facility] Appointment Type:HEM [facility]C OV Follow Up Tuan Appointment Date:06/15/2025 11:30:00 AM Scheduled Provider:LAURA CAGE MD Location:[facility] Appointment Type:RO Follow Up Future Scheduled Tests Laboratory* TgAb+Thyroglobulin,CURRY or LCMS 01/21/25 * Amylase Level 09/27/24 * Lactate Dehydrogenase 12/21/24 * Lipase Level 09/27/24 * Thyroid Stimulating Hormone 01/21/25 * Free T4 01/07/25 * Complete Blood Count 03/27/25 * Complete Blood Count 12/21/24 * Free T3 01/07/25 * Complete Metabolic Panel 03/27/25 * Complete Metabolic Panel 12/21/24 Radiology* XR Shoulder Minimum 2 Views Right 12/26/24 * IR Thyroid Biopsy 02/24/25 [facility] Evaluation + Plan note Future Appointments Appointment Date:03/27/2025 10:45:00 AM Scheduled Provider:HANANE RODRIGUEZ MD Location:[facility] Appointment Type:HEM ONC OV Follow Up Tuan Appointment Date:05/22/2025 10:30:00 AM Scheduled Provider:RICARDO RUIZ DO Location:[facility] Appointment Type:PC OV Controlled Medication Appointment Date:06/15/2025 11:30:00 AM Scheduled Provider:LAURA CAGE MD Location:[facility] Appointment Type:RO Follow Up 30 Future Scheduled Tests Laboratory* TgAb+Thyroglobulin,CURRY or LCMS 01/21/25 * Amylase Level 09/27/24 * Lactate Dehydrogenase 12/21/24 * Lipase Level 09/27/24 * Thyroid Stimulating Hormone 01/21/25 * Free T4 01/07/25 * Complete Blood Count 03/27/25 * Complete Blood Count 12/21/24 * Free T3 01/07/25 * Complete Metabolic Panel 03/27/25 * Complete Metabolic Panel 12/21/24 Radiology* XR Shoulder Minimum 2 Views Right 12/26/24 [facility] Evaluation + Plan note Future Appointments Appointment Date:04/25/2025 11:45:00 AM Scheduled Provider:HANANE RODRIGUEZ MD Location:[facility] Appointment Type:HEM ONC OV Follow Up Tuan Appointment Date:05/01/2025 02:00:00 PM Scheduled Provider:RICARDO RUIZ DO Location:[facility] Appointment Type:PC OV Appointment Date:05/22/2025 10:30:00 AM Scheduled Provider:RICARDO RUIZ DO Location:[facility] Appointment Type:PC OV Controlled Medication Appointment Date:06/15/2025 11:30:00 AM Scheduled Provider:LAURA CAGE MD Location:[facility] Appointment Type:RO Follow Up 30 Future Scheduled Tests Laboratory* TgAb+Thyroglobulin,CURRY or LCMS 01/21/25 * Amylase Level 09/27/24 * Lactate Dehydrogenase 12/21/24 * Lipase Level 09/27/24 * Thyroid Stimulating Hormone 01/21/25 * Free T4 01/07/25 * Complete Blood Count 12/21/24 * Free T3 01/07/25 * Complete Metabolic Panel 12/21/24 Radiology* XR Shoulder Minimum 2 Views Right 12/26/24 [facility] Evaluation + Plan note Future Appointments Appointment Date:05/01/2025 02:00:00 PM Scheduled Provider:RICARDO RUIZ DO Location:[facility] Appointment Type:PC OV Appointment Date:05/22/2025 10:30:00 AM Scheduled Provider:RICARDO RUIZ DO Location:[facility] Appointment Type:PC OV Controlled Medication Appointment Date:06/15/2025 11:30:00 AM Scheduled Provider:LAURA CAGE MD Location:[facility] Appointment Type:RO Follow Up 30 Appointment Date:09/18/2025 09:45:00 AM Scheduled Provider: Location:[facility] Appointment Type:MA Mammogram Screening Left w/ Ab Appointment Date:10/26/2025 10:30:00 AM Scheduled Provider:LAST ORELLANA Location:[facility] Appointment Type:[facility] OV Follow Up w/CATHY Future Scheduled Tests Laboratory* TgAb+Thyroglobulin,CURRY or LCMS 01/21/25 * Amylase Level 09/27/24 * Lactate Dehydrogenase 12/21/24 * Lipase Level 09/27/24 * Thyroid Stimulating Hormone 01/21/25 * Free T4 01/07/25 * Complete Blood Count 10/26/25 * Complete Blood Count 12/21/24 * Free T3 01/07/25 * Complete Metabolic Panel 10/26/25 * Complete Metabolic Panel 12/21/24 Radiology* MA Mammo Screening Left w/ Ab 09/18/25 * XR Shoulder Minimum 2 Views Right 12/26/24 [facility] Evaluation + Plan note Future Appointments Appointment Date:05/22/2025 10:30:00 AM Scheduled Provider:RICARDO RUIZ DO Location:[facility] Appointment Type:PC OV Controlled Medication Appointment Date:06/15/2025 11:30:00 AM Scheduled Provider:LAURA CAGE MD Location:[facility] Appointment Type:RO Follow Up 30 Appointment Date:09/18/2025 09:45:00 AM Scheduled Provider: Location:[facility] Appointment Type:MA Mammogram Screening Left w/ Ab Appointment Date:10/26/2025 10:30:00 AM Scheduled Provider:LAST ORELLANA Location:[facility] Appointment Type:[facility] OV Follow Up w/CATHY Future Scheduled Tests Laboratory* TgAb+Thyroglobulin,CURRY or LCMS 01/21/25 * Amylase Level 09/27/24 * Lactate Dehydrogenase 12/21/24 * Lipase Level 09/27/24 * Thyroid Stimulating Hormone 01/21/25 * Free T4 01/07/25 * Complete Blood Count 10/26/25 * Complete Blood Count 12/21/24 * Free T3 01/07/25 * Complete Metabolic Panel 10/26/25 * Complete Metabolic Panel 12/21/24 Radiology* MA Mammo Screening Left w/ Ab 09/18/25 * XR Shoulder Minimum 2 Views Right 12/26/24 [facility] Evaluation + Plan note Future Appointments Appointment Date:06/15/2025 11:30:00 AM Scheduled Provider:LAURA CAGE MD Location:[facility] Appointment Type:RO Follow Up 30 Appointment Date:06/29/2025 02:30:00 PM Scheduled Provider:TRISTEN AIKEN MD Location:[facility] [place] Appointment Type:[facility] Appointment Date:08/21/2025 11:00:00 AM Scheduled Provider:RICARDO RUIZ DO Location:[facility] Appointment Type:PC OV Controlled Medication Appointment Date:09/04/2025 10:30:00 AM Scheduled Provider: Location:[facility] Appointment Type:MA Mammogram Screening Left w/ Ab Appointment Date:10/26/2025 10:30:00 AM Scheduled Provider:LAST ORELLANA Location:[facility] Appointment Type:[facility] OV Follow Up w/CATHY Future Scheduled Tests Laboratory* TgAb+Thyroglobulin,CURRY or LCMS 01/21/25 * Amylase Level 09/27/24 * Lactate Dehydrogenase 12/21/24 * Lipase Level 09/27/24 * Thyroid Stimulating Hormone 01/21/25 * Free T4 01/07/25 * Complete Blood Count 10/26/25 * Complete Blood Count 12/21/24 * Free T3 01/07/25 * Complete Metabolic Panel 10/26/25 * Complete Metabolic Panel 12/21/24 Radiology* MA Mammo Screening Left w/ Ab 09/04/25 * XR Shoulder Minimum 2 Views Right 12/26/24 [facility] Evaluation + Plan note Future Appointments Appointment Date:06/15/2025 11:30:00 AM Scheduled Provider:LAURA CAGE MD Location:[facility] Appointment Type:RO Follow Up 30 Appointment Date:06/29/2025 02:30:00 PM Scheduled Provider:TRISTEN AIKEN MD Location:[facility] [place] Appointment Type:[employer] [employer] [employer] [facility] Appointment Date:08/21/2025 11:00:00 AM Scheduled Provider:RICARDO RUIZ DO Location:[facility] Appointment Type:PC OV Controlled Medication Appointment Date:09/04/2025 10:30:00 AM Scheduled Provider: Location:[facility] Appointment Type:MA Mammogram Screening Left w/ Ab Appointment Date:10/26/2025 10:30:00 AM Scheduled Provider:LAST ORELLANA Location:[facility] Appointment Type:[facility]M [facility] OV Follow Up w/CATHY Future Scheduled Tests Laboratory* TgAb+Thyroglobulin,CURRY or LCMS 01/21/25 * Basic Metabolic Panel 06/15/25 * Basic Metabolic Panel 07/13/25 * Amylase Level 09/27/24 * Lactate Dehydrogenase 12/21/24 * Lipase Level 09/27/24 * Thyroid Stimulating Hormone 07/13/25 * Thyroid Stimulating Hormone 01/21/25 * Free T4 01/07/25 * Complete Blood Count 10/26/25 * Complete Blood Count 12/21/24 * Free T3 01/07/25 * Complete Metabolic Panel 10/26/25 * Complete Metabolic Panel 12/21/24 Radiology* MA Mammo Screening Left w/ Ab 09/04/25 * XR Shoulder Minimum 2 Views Right 12/26/24 [facility] Evaluation + Plan note Future Appointments Appointment Date:06/29/2025 02:30:00 PM Scheduled Provider:TRISTEN AIKEN MD Location:[facility] [place] Appointment Type:[employer] [employer] [facility] Appointment Date:08/21/2025 11:00:00 AM Scheduled Provider:RICARDO RUIZ DO Location:[facility] Appointment Type:PC OV Controlled Medication Appointment Date:09/04/2025 10:30:00 AM Scheduled Provider: Location:[facility] Appointment Type:MA Mammogram Screening Left w/ Ab Appointment Date:10/26/2025 10:30:00 AM Scheduled Provider:LAST ORELLANA Location:[facility] Appointment Type:[facility]M [facility]C OV Follow Up w/CATHY Future Scheduled Tests Laboratory* TgAb+Thyroglobulin,CURRY or LCMS 01/21/25 * Basic Metabolic Panel 07/13/25 * Amylase Level 09/27/24 * Lactate Dehydrogenase 12/21/24 * Lipase Level 09/27/24 * Thyroid Stimulating Hormone 07/13/25 * Thyroid Stimulating Hormone 01/21/25 * Free T4 01/07/25 * Complete Blood Count 10/26/25 * Complete Blood Count 12/21/24 * Free T3 01/07/25 * Complete Metabolic Panel 10/26/25 * Complete Metabolic Panel 12/21/24 Radiology* MA Mammo Screening Left w/ Ab 09/04/25 * XR Shoulder Minimum 2 Views Right 12/26/24 [facility] Evaluation + Plan note Future Appointments Appointment Date:08/21/2025 11:00:00 AM Scheduled Provider:RICARDO RUIZ DO Location:[facility] Appointment Type:PC OV Controlled Medication Appointment Date:09/04/2025 10:30:00 AM Scheduled Provider: Location:[facility] Appointment Type:MA Mammogram Screening Left w/ Ab Appointment Date:10/26/2025 10:30:00 AM Scheduled Provider:LAST ORELLANA Location:[facility] Appointment Type:[facility] OV Follow Up w/CATHY Future Scheduled Tests Laboratory* TgAb+Thyroglobulin,CURRY or LCMS 01/21/25 * Amylase Level 09/27/24 * Lactate Dehydrogenase 12/21/24 * Lipase Level 09/27/24 * Thyroid Stimulating Hormone 01/21/25 * Free T4 01/07/25 * Complete Blood Count 10/26/25 * Complete Blood Count 12/21/24 * Free T3 01/07/25 * Complete Metabolic Panel 10/26/25 * Complete Metabolic Panel 12/21/24 Radiology* MA Mammo Screening Left w/ Ab 09/04/25 * XR Shoulder Minimum 2 Views Right 12/26/24 [facility] Evaluation noteNo assessment information available [facility] Work Phone: Evaluation note* Diagnosis Hydronephrosis, unspecified hydronephrosis type [facility]* Diagnosis Hydronephrosis, unspecified hydronephrosis type- Primary documented in this encounter [facility] note* Diagnosis Onset Date Resolution Status Recurrent cancer of right breast acute Recurrent cancer of right breast acute [facility] Work Phone: Evaluation note* Diagnosis Chronic pain syndrome- Primary Lumbar radiculopathy Thoracic or lumbosacral neuritis or radiculitis, unspecified Chronic pain disorder Chronic pain syndrome Chronic pain of left ankle Degeneration of intervertebral disc of lumbar region Arthropathy of lumbar facet joint Lumbosacral spondylosis without myelopathy Low back pain with sciatica, sciatica laterality unspecified, unspecified back pain laterality, unspecified chronicity Fibromyositis Mylagia and myositis, unspecified Lumbar post-laminectomy syndrome Postlaminectomy syndrome, lumbar region [facility] Diagnosis Chronic pain syndrome- Primary 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 Lumbar radiculopathy Thoracic or lumbosacral neuritis or radiculitis, unspecified Chronic pain of left ankle Arthropathy of lumbar facet joint Lumbosacral spondylosis without myelopathy [facility]* Diagnosis Onset Date Resolution Status Recurrent cancer of right breast acute Recurrent cancer of right breast acute Acute alteration in mental status acute Acute hypotension acute Opiate overdose acute [facility] Work Phone: Evaluation note* Diagnosis Onset Date Resolution Status Recurrent cancer of right breast acute Recurrent cancer of right breast acute Acute alteration in mental status acute Acute hypotension acute Opiate overdose acute Toxic encephalopathy acute [facility] Work Phone: Evaluation note* Diagnosis Chronic pain syndrome- Primary 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 Lumbar radiculopathy Thoracic or lumbosacral neuritis or radiculitis, unspecified Low back pain with sciatica, sciatica laterality unspecified, unspecified back pain laterality, unspecified chronicity documented in this encounter [facility] note* Diagnosis Chronic pain syndrome- Primary Lumbar radiculopathy Thoracic or lumbosacral neuritis or radiculitis, unspecified Low back pain with sciatica, sciatica laterality unspecified, unspecified back pain laterality, unspecified chronicity Lumbar post-laminectomy syndrome Postlaminectomy syndrome, lumbar region documented in this encounter [facility] note* Diagnosis Onset Date Resolution Status Acute alteration in mental status resolved Acute hypotension resolved Opiate overdose resolved Toxic encephalopathy resolve d [facility] Work Phone: Evaluation note* Diagnosis Other chronic pain- Primary Lumbar radiculopathy Thoracic or lumbosacral neuritis or radiculitis, unspecified care home (current) use of opiate analgesic Chronic pain syndrome documented in this encounter [facility] note* Diagnosis Intractable acute post-traumatic headache- Primary Acute post-traumatic headache Cervicalgia Medication overuse headache Drug induced headache, not elsewhere classified Hypertension, unspecified type [facility]* Diagnosis Chronic pain syndrome documented in this encounter [facility] note* Diagnosis Other chronic pain- Primary Lumbar radiculopathy Thoracic or lumbosacral neuritis or radiculitis, unspecified 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 Fibromyositis Mylagia and myositis, unspecified Neck pain Cervicalgia Chronic pain syndrome documented in this encounter [facility] note* Diagnosis Lacunar stroke (HCC)- Primary Unspecified cerebral artery occlusion with cerebral infarction Cerebral infarction, unspecified mechanism (HCC) [facility]* Diagnosis Intractable acute post-traumatic headache- Primary Acute post-traumatic headache Foraminal stenosis of cervical region Spinal stenosis in cervical region Lacunar infarction (HCC) Unspecified cerebral artery occlusion with cerebral infarction Neck pain Cervicalgia New daily persistent headache Cerebrovascular accident (CVA), unspecified mechanism (HCC) Prediabetes Other abnormal glucose Cervicalgia Medication overuse headache Drug induced headache, not elsewhere classified documented in this encounter [facility] note* Diagnosis Foraminal stenosis of cervical region- Primary Spinal stenosis in cervical region [facility]* Diagnosis Other chronic pain- Primary Lumbar radiculopathy Thoracic or lumbosacral neuritis or radiculitis, unspecified 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 Fibromyositis Mylagia and myositis, unspecified Neck pain Cervicalgia Chronic pain syndrome [facility]* Diagnosis Cervical disc disorder with radiculopathy- Primary Brachial neuritis or radiculitis nos Tension headache documented in this encounter [facility] note* Diagnosis Onset Date Resolution Status Wound of left lower extremity acute Edema of left lower leg acut e Nonhealing nonsurgical wound limited to breakdown of skin acute Wound of right leg acute [facility] Work Phone: Evaluation note* Diagnosis Other chronic pain- Primary Lumbar radiculopathy Thoracic or lumbosacral neuritis or radiculitis, unspecified care home (current) use of opiate analgesic Fibromyositis Mylagia and myositis, unspecified Neck pain Cervicalgia Chronic pain syndrome Cervical disc syndrome Intervertebral cervical disc disorder with myelopathy, cervical region documented in this encounter [facility] note* Diagnosis Other chronic pain- Primary Lumbar radiculopathy Thoracic or lumbosacral neuritis or radiculitis, unspecified 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 Neck pain Cervicalgia Fibromyositis Mylagia and myositis, unspecified Chronic pain syndrome [facility]* Diagnosis Onset Date Resolution Status Wound of left lower extremity acute Edema of left lower leg acut e Nonhealing nonsurgical wound limited to breakdown of skin acute Wound of right leg acute Breast asymmetry in female a cute History of right mastectomy acute Painful skin lesion acute [facility] Work Phone: Evaluation note* Diagnosis Lumbar radiculopathy- Primary Thoracic or lumbosacral neuritis or radiculitis, unspecified Fibromyositis Mylagia and myositis, unspecified Neck pain Cervicalgia documented in this encounter [facility] note* Diagnosis Neck pain- Primary Cervicalgia documented in this encounter [facility] note* Diagnosis Need for follow-up by rn social services- Primary documented in this encounter [facility] note* Diagnosis Other chronic pain- Primary Lumbar radiculopathy Thoracic or lumbosacral neuritis or radiculitis, unspecified 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 Neck pain Cervicalgia Fibromyositis Mylagia and myositis, unspecified Chronic left shoulder pain Pain in joint, shoulder region Chronic pain syndrome documented in this encounter [facility] note* Diagnosis Other chronic pain- Primary Lumbar radiculopathy Thoracic or lumbosacral neuritis or radiculitis, unspecified 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 Neck pain Cervicalgia Fibromyositis Mylagia and myositis, unspecified Chronic pain syndrome documented in this encounter [facility] note* Diagnosis Other chronic pain- Primary care home (current) use of opiate analgesic Lumbar radiculopathy Thoracic or lumbosacral neuritis or radiculitis, unspecified Neck pain Cervicalgia Fibromyositis Mylagia and myositis, unspecified Chronic left shoulder pain Pain in joint, shoulder region Chronic pain syndrome documented in this encounter [facility] note* Diagnosis Other chronic pain- Primary 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 Lumbar radiculopathy Thoracic or lumbosacral neuritis or radiculitis, unspecified Neck pain Cervicalgia Fibromyositis Mylagia and myositis, unspecified Chronic left shoulder pain Pain in joint, shoulder region Chronic pain syndrome documented in this encounter [facility] note* Diagnosis Other chronic pain- Primary care home (current) use of opiate analgesic Lumbar radiculopathy Thoracic or lumbosacral neuritis or radiculitis, unspecified Neck pain Cervicalgia Fibromyositis Mylagia and myositis, unspecified Chronic pain syndrome documented in this encounter [facility] note* Diagnosis Chronic pain syndrome documented in this encounter [facility] note* Diagnosis Other chronic pain- Primary care home (current) use of opiate analgesic Lumbar radiculopathy Thoracic or lumbosacral neuritis or radiculitis, unspecified Neck pain Cervicalgia Fibromyositis Mylagia and myositis, unspecified Postherpetic neuralgia Herpes zoster with other nervous system complications Chronic pain syndrome documented in this encounter [facility] note* Diagnosis Other chronic pain- Primary care home (current) use of opiate analgesic Lumbar radiculopathy Thoracic or lumbosacral neuritis or radiculitis, unspecified Neck pain Cervicalgia Fibromyositis Mylagia and myositis, unspecified Postherpetic neuralgia Herpes zoster with other nervous system complications Chronic pain syndrome [facility] Diagnosis Chronic pain syndrome [facility] Diagnosis Other chronic pain- Primary care home (current) use of opiate analgesic Neck pain Cervicalgia Lumbar radiculopathy Thoracic or lumbosacral neuritis or radiculitis, unspecified Fibromyositis Mylagia and myositis, unspecified Postherpetic neuralgia Herpes zoster with other nervous system complications Chronic pain syndrome [facility] Diagnosis Postherpetic neuralgia Herpes zoster with other nervous system complications [facility] Diagnosis Chronic pain syndrome Other chronic pain- Primary Postherpetic neuralgia Herpes zoster with other nervous system complications 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 Neck pain Cervicalgia Lumbar radiculopathy Thoracic or lumbosacral neuritis or radiculitis, unspecified Chronic left shoulder pain Pain in joint, shoulder region Fibromyositis Mylagia and myositis, unspecified documented [facility]* Diagnosis Other chronic pain- Primary Postherpetic neuralgia Herpes zoster with other nervous system complications 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 Neck pain Cervicalgia Lumbar radiculopathy Thoracic or lumbosacral neuritis or radiculitis, unspecified Chronic left shoulder pain Pain in joint, shoulder region Fibromyositis Mylagia and myositis, unspecified Chronic pain syndrome documented [facility]* Diagnosis Chronic pain syndrome [facility]* Diagnosis Other chronic pain- Primary Postherpetic neuralgia Herpes zoster with other nervous system complications care home (current) use of opiate analgesic Neck pain Cervicalgia Chronic pain syndrome documented [facility]* Diagnosis Other chronic pain- Primary Postherpetic neuralgia Herpes zoster with other nervous system complications 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 Neck pain Cervicalgia Lumbar radiculopathy Thoracic or lumbosacral neuritis or radiculitis, unspecified Chronic left shoulder pain Pain in joint, shoulder region Chronic pain syndrome [facility] Diagnosis Other chronic pain- Primary Postherpetic neuralgia Herpes zoster with other nervous system complications care home (current) use of opiate analgesic Neck pain Cervicalgia Lumbar radiculopathy Thoracic or lumbosacral neuritis or radiculitis, unspecified Chronic left shoulder pain Pain in joint, shoulder region Chronic pain syndrome [facility] Narrative No data available for this section [facility] Hospital Discharge instructions No data available for this section [facility] Additional Instructions [facility] Discharge instructions Additional Instructions Please follow-up with urology secondary to your urinary retention noted on today's exam. Use the Zofran as directed to control any further bouts of nausea or vomiting and return to the ER should you have any further [facility] Work Phone: Hospital Discharge instructions Additional Instructions Until you follow-up, avoid taking furosemide. Follow-up with your pain management doctor soon as possible.[facility] Work Phone: Progress note No data available for this section [facility] Reason for referral (narrative)* Outpatient Procedure (Routine) - Pending Review Specialty Diagnoses / Procedures Referred By Rajni kwok Ref[facility] Diagnoses Lacunar stroke (HCC) Cerebral infarction, unspecified mechanism (HCC) Procedures US CAROTID ARTERIES [facility] DUPLEX SCAN EXTRACRANIAL ART COMPL BI STUDY Erna Núñez PA-C [address] [place] [address] [facility] [address] [address] Referral ID Status Reason Start Date Expiration Date Visits Requested Visits Authorized [id number] Pending Review Auto-Generat ed Referral 12/03/2022 12/03/2023 1 1 * MRI/CT (Routine) - Pending Review Specialty Diagnoses / Procedures Referred By Rajni kwok Referred To Contact [facility] IMAGING Diagnoses Cerebral infarction, unspecified mechanism (HCC) Procedures MRA BRAIN WO IVCON MRA, HEAD W/O CONTRAST Erna Núñez PA-C [address] [address] [facility] Referral ID Status Reason Start Date Expiration Date Visits Requested Visits Authorized [id number] Pending Review Auto-Generat ed Referral 12/03/2022 01/02/2024 1 1 * Consult, Test, Treat (Routine) - Authorized Specialty Diagnoses / Procedures Referred By Rajni kwok Referred To Contact Neurology Diagnoses Lacunar stroke (HCC) Procedures CONSULT TO NEUROLOGY OFFICE/OUTPATIENT [facility] 60-74 MINUTES Erna Núñez PA-C [address] [id number] Referral ID Status Reason Start Date Expiration Date Visits Requested Visits Authorized [id number] Authorized PCP Requested Referral 12/03/2022 12/03/2023 1 1 [facility] for referral (narrative)No reason for referral information availableWVan [facility] Work Phone: Summary Purpose Family History No Family History Records Found Relationship Condition Age at Onset Recorded Date/T sara Not Specified Chronic obstructive pulmonary disease Un known Malignant neoplasm Unknown Relationship Condition Age at Onset Recorded Date/T sara mother Malignant neoplasm Unknown father Pulmonary emphysema Unknown Cardiac disease Unknown brother Cardiac disease Unknown Diabetes mellitus Unknown Advance Directives No Advanced Directives Records FoundDocuments on File Type Date Recorded Patient Drug Safety Data Management Specialist Expl anation Advance Directives and Living Will Advance Directive Response Recorded Date/ Time Advance Directives Yes June 21, 2016 10:09pm Living Will Yes October 08 2:58pm Power of Mold Maker Helper Yes October 08, 2021 2:58pm Advance Directive Response Recorded Date/ Time Advance Directives Yes June 21, 2016 10:09pm Living Will No March 09, 2022 11:21pm Power of Mold Maker Helper No March 09 11:21pm Advance Directive Response Recorded Date/ Time Advance Directives Yes June 21, 2016 10:09pm Living Will No March 23, 2022 6:23pm Power of Mold Maker Helper No March 23 6:23pm Advance Directive Response Recorded Date/ Time Advance Directives Yes June 21, 2016 10:09pm Living Will No May 20 10:12am Power of Mold Maker Helper No May 20, 2022 10:12am Advance Directive Response Recorded Date/ Time Advance Directives Yes June 21, 2016 10:09pm Living Will No May 20 2:02pm Power of Mold Maker Helper No May 20, 2022 2:02pm Advance Directive Response Recorded Date/ Time Name of Medical Power of Mold Maker Helper JONNA ORELLANA June 17, 2022 7:17am Advance Directives Yes June 21, 2016 9:09pm Living Will No August 27, 11:36pm Power of Mold Maker Helper No August 27, 2022 11:36pm Advance Directive Response Recorded Date/ Time Name of Medical Power of Mold Maker Helper JONNA ORELLANA June 17, 2022 7:17am Advance Directives Yes June 21, 2016 9:09pm Living Will No August 29, 11:00pm Power of Mold Maker Helper No August 29, 2022 11:00pm Advance Directive Response Recorded Date/ Time Advance Directives Yes June 21, 2016 9:09pm Living Will No August 29, 11:00pm Power of Mold Maker Helper No August 29, 2022 11:00pm Advance Directive Response Recorded Date/ Time Advance Directives Yes June 21, 2016 9:09pm Living Will No November 17, 2022 9:49pm Power of Mold Maker Helper No November 17 9:49pm Advance Directive Response Recorded Date/ Time Name of Medical Power of Mold Maker Helper Jonna Orellana February 10, 2023 9:40pm Advance Directives Yes June 21, 2016 10:09pm Living Will Yes February 10, 2023 9 :40pm Power of Mold Maker Helper Yes February 10, 2023 9:40pm Advance Directive Response Recorded Date/ Time Name of Medical Power of Mold Maker Helper Jonna Orellana February 10, 2023 9:40pm Name of Medical Power of Mold Maker Helper --jonna March 30, 2023 11:41pm Advance Directives Yes June 21, 2016 10:09pm Living Will Yes March 30, 2023 11:41pm Power of Mold Maker Helper Yes March 30 11:41pm Advance Directive Response Recorded Date/ Time Living Will Yes October 18 11:00pm Do you have a Healthcare Power of Mold Maker Helper? Yes October 18, 2024 11:00pm Name of Medical Power of Mold Maker Helper Jonna Orellana October 18, 2024 11:00pm Advance Directives Yes June 21, 2016 10:09pm Advance Directive Response Recorded Date/ Time Advance Directives Yes June 21, 2016 10:09pm History of Present Illness * America Peck, NUCLEAR FUEL PROCESSING TECHNICIAN - 10/10/2019 3:11 PM EST Carol Ann Orellana 1945 CC: 74 y.o. is a she with right knee pain. Chief Complaint Patient presents with Left Knee - Pain Right Knee - Pain . HPI: Knee Pain: Patient complains of bilateral knee pain, the right being worse than the left. She is here today for the right knee. She states that the right knee was replaced in 2009 and has never felt "right" She states that she has always continued to have pain in the knee but 2 weeks ago she noticed increased pain and swelling in the right knee. She denies any type of injury to the right knee. She is currently taking Tylenol or [place] if the pain gets really bad. She is unable to take NSAIDs due to being on a blood thinner. She states that she has had back issues in the past and doesn't know if that has something to do with the pain in her knee. She states that she has always felt as though the knee replacement was too big and has always caused her problems. PMH: Allergies Allergen Reactions Oxycodone-Acetaminophen Other (See Comments) Iodine Latex Current Outpatient Medications: ALPRAZolam (XANAX) 1 MG tablet, Take 1 mg by mouth 3 (three) times a day ., Disp: , Rfl: Bystolic 5 mg tablet, , Disp: , Rfl: diclofenac sodium 3 % Gel, diclofenac sodium 3 % gel, Disp: , Rfl: HYDROcodone-acetaminophen (NORCO) 10-325 mg per tablet, Take 1 tablet by mouth every 8 (eight) hours as needed ., Disp: , Rfl: levothyroxine (SYNTHROID, LEVOTHROID) 50 MCG tablet, Take 50 mcg by mouth every morning before breakfast ., Disp: , Rfl: meclizine (ANTIVERT) 25 mg tablet, Take 25 mg by mouth ., Disp: , Rfl: methylphenidate HCl (RITALIN) 20 MG tablet, Take 20 mg by mouth 2 (two) times a day ., Disp: , Rfl: pregabalin (Lyrica) 75 MG capsule, Take by mouth ., Disp: , Rfl: Xarelto 10 mg tablet, Take 10 mg by mouth daily ., Disp: , Rfl: The patient's past medical history, surgical history, social history, family history, medications and allergies were reviewed with the patient today and are available in the chart for further review. ROS: Review of Systems Constitutional: Negative for activity change and fatigue. HENT: Negative for congestion, hearing loss and trouble swallowing. Eyes: Negative for visual disturbance. Respiratory: Negative for chest tightness and shortness of breath. Cardiovascular: Negative for chest pain and palpitations. Gastrointestinal: Negative for abdominal pain, diarrhea, nausea and vomiting. Endocrine: Negative for polydipsia, polyphagia and polyuria. Genitourinary: Negative for decreased urine volume, difficulty urinating and hematuria. Musculoskeletal: Positive for arthralgias and joint swelling. Negative for myalgias. Skin: Negative for color change, rash and wound. Allergic/Immunologic: Negative for immunocompromised state. Neurological: Negative for dizziness, weakness, light-headedness and numbness. Hematological: Does not bruise/bleed easily. Psychiatric/Behavioral: Negative for confusion and sleep disturbance. The patient is not nervous/anxious. PE: Physical Exam Constitutional: She is oriented to person, place, and time. She appears well- developed and well-nourished. HENT: Head: Normocephalic. Eyes: Pupils are equal, round, and reactive to light. Neck: Normal range of motion. Neck supple. Cardiovascular: Normal rate and regular rhythm. Pulmonary/Chest: Effort normal and breath sounds normal. Abdominal: Soft. Bowel sounds are normal. Musculoskeletal: General: Tenderness and edema present. Right knee: She exhibits decreased range of motion, swelling and effusion. Tenderness found. Medialjoint line and lateral joint line tenderness noted. Neurological: She is alert and oriented to person, place, and time. Skin: Skin is warm and dry. ORTHO: Right Knee Exam Tenderness The patient is experiencing tenderness in the patella, medial joint line and lateral joint line. Range of Motion Extension: abnormal Flexion: abnormal Tests Varus: negative Valgus: negative Other Erythema: present Scars: present Sensation: normal Pulse: present Swelling: moderate Effusion: effusion present Imaging: B/L Knee Right knee: Postoperative changes of total knee replacement with patellar resurfacing. Hardware is well-seated with appropriate alignment. No periprosthetic fracture. Small joint effusion. Soft tissues are within normal limits. Left knee: No acute fracture. Medial knee compartment joint space narrowing with mild marginal osteophytosis. Small joint effusion. Chondrocalcinosis of the menisci. Assessment/Plan: After examination and reviewing of the patient x-ray images, I am going to order some labwork on the patient for further evaluation of the knee inflammation. I did speak to Dr. Nunez in regards to this patient and he would like her to follow up with him in 2 weeks for further evaluation of the knee. The patient verbalizes understanding and is in agreement with the treatment plan. Diagnosis: Problem List Items Addressed This Visit None Visit Diagnoses Status post total knee replacement, unspecified laterality - Primary Relevant Orders CBC and differential C-reactive protein Sedimentation Rate Miscellaneous Lab Test Pain and swelling of knee, unspecified laterality Relevant Orders CBC and differential C-reactive protein Sedimentation Rate Miscellaneous Lab Test Follow Up: No follow-ups on file. America Peck CNP documented in this encounter* Ani Nunez MD - 10/17/2019 4:48 PM EST Dictation on: 10/17/2019 4:51 PM by: ANI NUNEZ [[id number]] documented in this encounter Assessments Diagnosis Status post total knee replacement, unspecified laterality Pain and swelling of knee, unspecified laterality Diagnosis Status post total knee replacement, unspecified laterality Pain and swelling of knee, unspecified laterality Spondylolisthesis of lumbar region Chief Complaint and Reason for Visit Chief Complaint COMPLAINT weakness Chief Complaint CONSULT Chief Complaint Consult NEW PT - BREAST CONSULT BREAST CA BREAST CA Reason for Visit Recurrent cancer of right breast Recurrent cancer of right breast Chief Complaint Consult NEW PT - BREAST CONSULT BREAST CA BREAST CA Amb Documentation UTI SYMPTOMS Reason for Visit Recurrent cancer of right breast Recurrent cancer of right breast Chief Complaint Consult NEW PT - BREAST CONSULT BREAST CA BREAST CA Amb Documentation UTI SYMPTOMS ABDOMINAL PAIN Reason for Visit Recurrent cancer of right breast Recurrent cancer of right breast Chief Complaint Consult NEW PT - BREAST CONSULT BREAST CA BREAST CA Amb Documentation UTI SYMPTOMS ABDOMINAL PAIN UNINTENTIONAL OVERDOSE Reason for Visit Recurrent cancer of right breast Recurrent cancer of right breast Acute alteration in mental status Acute hypotension Opiate overdose Chief Complaint Consult NEW PT - BREAST CONSULT BREAST CA BREAST CA Amb Documentation UTI SYMPTOMS ABDOMINAL PAIN UNINTENTIONAL OVERDOSE UNINTENTIONAL OVERDOSE UNINTENTIONAL OVERDOSE Reason for Visit Recurrent cancer of right breast Recurrent cancer of right breast Acute alteration in mental status Acute hypotension Opiate overdose Toxic encephalopathy Chief Complaint UNINTENTIONAL OVERDO SE UNINTENTIONAL OVERDOSE UNINTENTIONAL OVERDOSE fall htn Reason for Visit Acute alteration in mental status Acute hypotension Opiate overdose Toxic encephalopathy Chief Complaint UNINTENTIONAL OVERDO SE UNINTENTIONAL OVERDOSE UNINTENTIONAL OVERDOSE fall htn WEAKNESS HTN Reason for Visit Acute alteration in mental status Acute hypotension Opiate overdose Toxic encephalopathy Chief Complaint htn WEAKNESS HTN THRUSH Chief Complaint htn WEAKNESS HTN THRUSH SOB Chief Complaint THRUSH SOB WOUND ON LT LOWER LEG wound wound wound wound N/V Reason for Visit Wound of left lower extremity Edema of left lower leg Nonhealing nonsurgical wound limited to breakdown of skin Wound of right leg Chief Complaint WOUND ON LT LOWER LE G wound wound wound wound N/V CONSULT-CANCER n/v/ Reason for Visit Wound of left lower extremity Edema of left lower leg Nonhealing nonsurgical wound limited to breakdown of skin Wound of right leg Breast asymmetry in female History of right mastectomy Painful skin lesion Chief Complaint Admit Date HYPERTENSION October 18, 2024 9 :44pm Chief Complaint Admit Date DYSPHAGIA March 06, 2025 8:55 am Reason for Referral Specialty Diagnoses / Procedures Referred By Rajni kwok Referred To Contact Zoila Valiente, COLTON.NUCLEAR FUEL PROCESSING TECHNICIAN [address] [place] [address] Referral ID Status Reason Start Date Expiration Date V isits Requested Visits Authorized [id number] Authorized 01/03/2024 02/01/2025 1 1 Specialty Diagnoses / Procedures Referred By Rajni kwok Referred To Contact Physical Therapy Diagnoses Lumbar radiculopathy Fibromyositis Neck pain Procedures CONSULT TO PHYSICAL THERAPY Zoila Valiente, TAPER PRINTED CIRCUIT LAYOUT.NUCLEAR FUEL PROCESSING TECHNICIAN [address] [place] [address] [facility] [address] [place] [address] Referral ID Status Reason Start Date Expiration Date Visits Requested Visits Authorized [id number] Ref Not Required PCP Requested Referral 02/27/2023 02/27/2024 99 99 Specialty Diagnoses / Procedures Referred By Contac t Referred To Contact Diagnoses Cervical disc disorder with radiculopathy Tension headache Procedures CONSULT TO HEADACHE CLINIC OFFICE/OUTPATIENT [facility] 60-74 MINUTES Reji Rodriguez, TAPER PRINTED CIRCUIT LAYOUT.NUCLEAR FUEL PROCESSING TECHNICIAN [address] [place] [address] Referral ID Status Reason Start Date Expiration Date Visits Requested Visits Authorized [id number] Authorized PCP Requested Referral 02/06/2023 02/06/2024 1 1 Specialty Diagnoses / Procedures Referred By Contac t Referred To Contact [facility] Diagnoses Neck pain New daily persistent headache Procedures CONSULT TO PHYSICAL THERAPY PHYSICAL THERAPY EVALUATION HIGH COMPLEX 45 MINS Jena Felix PA-C [address] [place] [address] [facility] [place] [address] [place] [address] Referral ID Status Reason Start Date Expiration Date Visits Requested Visits Authorized [id number] Authorized PCP Requested Referral Auto-Generate d Referral 12/16/2022 12/16/2023 99 99 Specialty Diagnoses / Procedures Referred By Contac t Referred To Contact Neurosurgery Diagnoses Foraminal stenosis of cervical region Procedures CONSULT TO NEUROSURGERY OFFICE/OUTPATIENT [facility] 60-74 MINUTES Jena Felix PA-C [address] [place] [address] Referral ID Status Reason Start Date Expiration Date Visits Requested Visits Authorized [id number] Authorized PCP Requested Referral 12/16/2022 12/16/2023 1 1 Specialty Diagnoses / Procedures Referred By Contac t Referred To Contact MR IMAGING Diagnoses Intractable acute post-traumatic headache Procedures MRI CERVICAL SPINE [facility] MRI SPINAL CANAL CERVICAL W/O CONTRAST MATRL Reza, J Jr., MD [address] [facility] [address] [place] [address] Mr Imaging Referral ID Status Reason Start Date Expiration Date Visits Requested Visits Authorized [id number] Authorized Auto-Generat ed Referral 11/03/2022 12/03/2023 1 1 Specialty Diagnoses / Procedures Referred By Contac t Referred To Contact MR IMAGING Diagnoses Intractable acute post-traumatic headache Procedures MRV BRAIN WO IVCON MRA, HEAD W/O CONTRAST William Reza Jr., MD [address] [place] [address] Mr Imaging Referral ID Status Reason Start Date Expiration Date Visits Requested Visits Authorized [id number] Authorized Auto-Generat ed Referral 11/03/2022 12/03/2023 1 1 Specialty Diagnoses / Procedures Referred By Contac t Referred To Contact MR IMAGING Diagnoses Intractable acute post-traumatic headache Procedures MRI BRAIN WO IVCON MRI BRAIN BRAIN STEM W/O CONTRAST MATERIAL William Reza Jr., MD [address] [facility] [address] [place] [address] Mr Imaging Referral ID Status Reason Start Date Expiration Date Visits Requested Visits Authorized [id number] Authorized Auto-Generat ed Referral 11/03/2022 12/03/2023 1 1 Specialty Diagnoses / Procedures Referred By Contac t Referred To Contact CT IMAGING Diagnoses Hydronephrosis, unspecified hydronephrosis type Procedures CT UROGRAM WO/W IVCON CT ABD & PELVIS W/O CONTRST 1+ BODY Joseph Stewart MD [address] [place] [address] Ct Imaging Referral ID Status Reason Start Date Expiration Date V isits Requested Visits Authorized [id number] Closed Auto-Generate d Referral 11/08/2021 12/08/2022 1 1 Additional Source Comments INFORMATION SOURCE (unrecogn ized section and content) DATE CREATED AUTHOR 03/10/2018 [facility] DATE CREATED AUTHOR AUTHOR'S ORGANIZ ATION 10/21/2019 [facility] DATE CREATED AUTHOR AUTHOR'S ORGANIZ ATION 12/08/2019 [facility] [place] DATE CREATED AUTHOR AUTHOR'S ORGANIZ ATION 02/09/2020 [facility] DATE CREATED AUTHOR AUTHOR'S ORGANIZ ATION 01/09/2022 [facility] DATE CREATED AUTHOR AUTHOR'S ORGANIZ ATION 04/22/2022 [facility] ([place]) DATE CREATED AUTHOR AUTHOR'S ORGANIZ ATION 10/24/2023 [facility] DATE CREATED AUTHOR AUTHOR'S ORGANIZ ATION 03/05/2024 [facility] ([place]) DATE CREATED AUTHOR AUTHOR'S ORGANIZ ATION 03/11/2025 [facility] DATE CREATED AUTHOR AUTHOR'S ORGANIZ ATION 05/10/2025 [facility] DATE CREATED AUTHOR AUTHOR'S ORGANIZ ATION 06/18/2025 [facility] DATE CREATED AUTHOR AUTHOR'S ORGANIZ ATION 07/25/2025 [facility] Reason for Visit (unrecogniz ed section and content) Reason Comments Physical Therapy Specialty Diagnoses / Procedures Referred By Contac t Referred To Contact Physical Therapy / PHYSICAL THERAPY Diagnoses Lumbar radiculopathy [M54.16] 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] Neck pain [M54.2] Procedures NEW RS PT SPINE Zoila Valiente, [employer]NUCLE[employer]UEL PROCESSING TECHNICIAN [address] [place] [address] Laura Bravo, PT Referral ID Status Reason Start Date Expiration Date V isits Requested Visits Authorized [id number] Authorized 09/14/2022 09/13/2023 99 99 Reason Comments Pain Reason Comments Follow-up Specialty Diagnoses / Procedures Referred By Contac t Referred To Contact CT IMAGING Diagnoses Hydronephrosis, unspecified hydronephrosis type Procedures CT UROGRAM WO/W IVCON CT ABD & PELVIS W/O CONTRST 1+ BODY Joseph Stewart MD [address] [place] [address] Ct Imaging Referral ID Status Reason Start Date Expiration Date V isits Requested Visits Authorized [id number] Closed Auto-Generate d Referral 11/08/2021 12/08/2022 1 1 Reason Comments Follow Up Reason Comments Pain Reason Comments New Patient Reason Onset Date Comments Refill Request 11/14/2022 Reason Comments Orders Reason Comments Follow Up Reason Comments New Patient Reason Comments Pain Reason Comments LVM to cancel other injection appt Reason Comments PT Eval Reason Comments Durable Medical Equipment Reason Comments Other Health Maintenance R eview Reason Comments Other Virtual Visit Pre Ch geovany In Reason Comments F/U 1 month Follow up appt Other Reason Comments Other Health Maintenance Reason Comments Other Chart update Reason Comments Other Health maintenance Reason Comments Other Patient questions Reason Comments Other Follow up Reason Comments Other Metaxalone approved thru 02/01/2025 Reason Comments Refill Request Reason Onset Date Comments Refill Request 10/09/2024 Reason Onset Date Comments Refill Request 11/10/2024 Goals (unrecognized section and content) Goals may be documented in a n alternate section Source Comments (unrecognize d section and content) In the event this informatio n is protected by the Federal Confidentiality of Alcohol and Drug Abuse Patient Records regulations: The Federal rules restrict any use of the information to criminally investigate or prosecute any alcohol or drug abuse patient.[facility] HealthIn the event this information is protected by the Federal Confidentiality of Alcohol and Drug Abuse Patient Records regulations: The Federal rules restrict any use of the information to criminally investigate or prosecute any alcohol or drug abuse patient.[facility] HealthIn the event this information is protected by the Federal Confidentiality of Alcohol and Drug Abuse Patient Records regulations: The Federal rules restrict any use of the information to criminally investigate or prosecute any alcohol or drug abuse patient.[facility] HealthIn the event this information is protected by the Federal Confidentiality of Alcohol and Drug Abuse Patient Records regulations: The Federal rules restrict any use of the information to criminally investigate or prosecute any alcohol or drug abuse patient.[facility] HealthIn the event this information is protected by the Federal Confidentiality of Alcohol and Drug Abuse Patient Records regulations: The Federal rules restrict any use of the information to criminally investigate or prosecute any alcohol or drug abuse patient.[facility] HealthIn the event this information is protected by the Federal Confidentiality of Alcohol and Drug Abuse Patient Records regulations: The Federal rules restrict any use of the information to criminally investigate or prosecute any alcohol or drug abuse patient.[facility] HealthIn the event this information is protected by the Federal Confidentiality of Alcohol and Drug Abuse Patient Records regulations: The Federal rules restrict any use of the information to criminally investigate or prosecute any alcohol or drug abuse patient.[facility] HealthIn the event this information is protected by the Federal Confidentiality of Alcohol and Drug Abuse Patient Records regulations: The Federal rules restrict any use of the information to criminally investigate or prosecute any alcohol or drug abuse patient.[facility] HealthIn the event this information is protected by the Federal Confidentiality of Alcohol and Drug Abuse Patient Records regulations: The Federal rules restrict any use of the information to criminally investigate or prosecute any alcohol or drug abuse patient.[facility] HealthIn the event this information is protected by the Federal Confidentiality of Alcohol and Drug Abuse Patient Records regulations: The Federal rules restrict any use of the information to criminally investigate or prosecute any alcohol or drug abuse patient.[facility] HealthIn the event this information is protected by the Federal Confidentiality of Alcohol and Drug Abuse Patient Records regulations: The Federal rules restrict any use of the information to criminally investigate or prosecute any alcohol or drug abuse patient.[facility] HealthIn the event this information is protected by the Federal Confidentiality of Alcohol and Drug Abuse Patient Records regulations: The Federal rules restrict any use of the information to criminally investigate or prosecute any alcohol or drug abuse patient.[facility] HealthIn the event this information is protected by the Federal Confidentiality of Alcohol and Drug Abuse Patient Records regulations: The Federal rules restrict any use of the information to criminally investigate or prosecute any alcohol or drug abuse patient.[facility] HealthIn the event this information is protected by the Federal Confidentiality of Alcohol and Drug Abuse Patient Records regulations: The Federal rules restrict any use of the information to criminally investigate or prosecute any alcohol or drug abuse patient.[facility] HealthIn the event this information is protected by the Federal Confidentiality of Alcohol and Drug Abuse Patient Records regulations: The Federal rules restrict any use of the information to criminally investigate or prosecute any alcohol or drug abuse patient.[facility] HealthIn the event this information is protected by the Federal Confidentiality of Alcohol and Drug Abuse Patient Records regulations: The Federal rules restrict any use of the information to criminally investigate or prosecute any alcohol or drug abuse patient.[facility] HealthIn the event this information is protected by the Federal Confidentiality of Alcohol and Drug Abuse Patient Records regulations: The Federal rules restrict any use of the information to criminally investigate or prosecute any alcohol or drug abuse patient.[facility] HealthIn the event this information is protected by the Federal Confidentiality of Alcohol and Drug Abuse Patient Records regulations: The Federal rules restrict any use of the information to criminally investigate or prosecute any alcohol or drug abuse patient.[facility] HealthIn the event this information is protected by the Federal Confidentiality of Alcohol and Drug Abuse Patient Records regulations: The Federal rules restrict any use of the information to criminally investigate or prosecute any alcohol or drug abuse patient.[facility] HealthIn the event this information is protected by the Federal Confidentiality of Alcohol and Drug Abuse Patient Records regulations: The Federal rules restrict any use of the information to criminally investigate or prosecute any alcohol or drug abuse patient.[facility] HealthIn the event this information is protected by the Federal Confidentiality of Alcohol and Drug Abuse Patient Records regulations: The Federal rules restrict any use of the information to criminally investigate or prosecute any alcohol or drug abuse patient.[facility] HealthIn the event this information is protected by the Federal Confidentiality of Alcohol and Drug Abuse Patient Records regulations: The Federal rules restrict any use of the information to criminally investigate or prosecute any alcohol or drug abuse patient.[facility] HealthIn the event this information is protected by the Federal Confidentiality of Alcohol and Drug Abuse Patient Records regulations: The Federal rules restrict any use of the information to criminally investigate or prosecute any alcohol or drug abuse patient.[facility] HealthIn the event this information is protected by the Federal Confidentiality of Alcohol and Drug Abuse Patient Records regulations: The Federal rules restrict any use of the information to criminally investigate or prosecute any alcohol or drug abuse patient.[facility] HealthIn the event this information is protected by the Federal Confidentiality of Alcohol and Drug Abuse Patient Records regulations: The Federal rules restrict any use of the information to criminally investigate or prosecute any alcohol or drug abuse patient.[facility] HealthIn the event this information is protected by the Federal Confidentiality of Alcohol and Drug Abuse Patient Records regulations: The Federal rules restrict any use of the information to criminally investigate or prosecute any alcohol or drug abuse patient.[facility] HealthIn the event this information is protected by the Federal Confidentiality of Alcohol and Drug Abuse Patient Records regulations: The Federal rules restrict any use of the information to criminally investigate or prosecute any alcohol or drug abuse patient.[facility] HealthIn the event this information is protected by the Federal Confidentiality of Alcohol and Drug Abuse Patient Records regulations: The Federal rules restrict any use of the information to criminally investigate or prosecute any alcohol or drug abuse patient.[facility] HealthIn the event this information is protected by the Federal Confidentiality of Alcohol and Drug Abuse Patient Records regulations: The Federal rules restrict any use of the information to criminally investigate or prosecute any alcohol or drug abuse patient.[facility] HealthIn the event this information is protected by the Federal Confidentiality of Alcohol and Drug Abuse Patient Records regulations: The Federal rules restrict any use of the information to criminally investigate or prosecute any alcohol or drug abuse patient.[facility] HealthIn the event this information is protected by the Federal Confidentiality of Alcohol and Drug Abuse Patient Records regulations: The Federal rules restrict any use of the information to criminally investigate or prosecute any alcohol or drug abuse patient.[facility] HealthIn the event this information is protected by the Federal Confidentiality of Alcohol and Drug Abuse Patient Records regulations: The Federal rules restrict any use of the information to criminally investigate or prosecute any alcohol or drug abuse patient.[facility] HealthIn the event this information is protected by the Federal Confidentiality of Alcohol and Drug Abuse Patient Records regulations: The Federal rules restrict any use of the information to criminally investigate or prosecute any alcohol or drug abuse patient.[facility] HealthIn the event this information is protected by the Federal Confidentiality of Alcohol and Drug Abuse Patient Records regulations: The Federal rules restrict any use of the information to criminally investigate or prosecute any alcohol or drug abuse patient.[facility] HealthIn the event this information is protected by the Federal Confidentiality of Alcohol and Drug Abuse Patient Records regulations: The Federal rules restrict any use of the information to criminally investigate or prosecute any alcohol or drug abuse patient.[facility] HealthIn the event this information is protected by the Federal Confidentiality of Alcohol and Drug Abuse Patient Records regulations: The Federal rules restrict any use of the information to criminally investigate or prosecute any alcohol or drug abuse patient.[facility] HealthIn the event this information is protected by the Federal Confidentiality of Alcohol and Drug Abuse Patient Records regulations: The Federal rules restrict any use of the information to criminally investigate or prosecute any alcohol or drug abuse patient.[facility] HealthIn the event this information is protected by the Federal Confidentiality of Alcohol and Drug Abuse Patient Records regulations: The Federal rules restrict any use of the information to criminally investigate or prosecute any alcohol or drug abuse patient.[facility] HealthIn the event this information is protected by the Federal Confidentiality of Alcohol and Drug Abuse Patient Records regulations: The Federal rules restrict any use of the information to criminally investigate or prosecute any alcohol or drug abuse patient.[facility] HealthIn the event this information is protected by the Federal Confidentiality of Alcohol and Drug Abuse Patient Records regulations: The Federal rules restrict any use of the information to criminally investigate or prosecute any alcohol or drug abuse patient.[facility] HealthIn the event this information is protected by the Federal Confidentiality of Alcohol and Drug Abuse Patient Records regulations: The Federal rules restrict any use of the information to criminally investigate or prosecute any alcohol or drug abuse patient.[facility] HealthIn the event this information is protected by the Federal Confidentiality of Alcohol and Drug Abuse Patient Records regulations: The Federal rules restrict any use of the information to criminally investigate or prosecute any alcohol or drug abuse patient.[facility] HealthIn the event this information is protected by the Federal Confidentiality of Alcohol and Drug Abuse Patient Records regulations: The Federal rules restrict any use of the information to criminally investigate or prosecute any alcohol or drug abuse patient.[facility] HealthIn the event this information is protected by the Federal Confidentiality of Alcohol and Drug Abuse Patient Records regulations: The Federal rules restrict any use of the information to criminally investigate or prosecute any alcohol or drug abuse patient.[facility] HealthIn the event this information is protected by the Federal Confidentiality of Alcohol and Drug Abuse Patient Records regulations: The Federal rules restrict any use of the information to criminally investigate or prosecute any alcohol or drug abuse patient.[facility] HealthIn the event this information is protected by the Federal Confidentiality of Alcohol and Drug Abuse Patient Records regulations: The Federal rules restrict any use of the information to criminally investigate or prosecute any alcohol or drug abuse patient.[facility] HealthIn the event this information is protected by the Federal Confidentiality of Alcohol and Drug Abuse Patient Records regulations: The Federal rules restrict any use of the information to criminally investigate or prosecute any alcohol or drug abuse patient.[facility] HealthIn the event this information is protected by the Federal Confidentiality of Alcohol and Drug Abuse Patient Records regulations: The Federal rules restrict any use of the information to criminally investigate or prosecute any alcohol or drug abuse patient.[facility] HealthIn the event this information is protected by the Federal Confidentiality of Alcohol and Drug Abuse Patient Records regulations: The Federal rules restrict any use of the information to criminally investigate or prosecute any alcohol or drug abuse patient.[facility] HealthIn the event this information is protected by the Federal Confidentiality of Alcohol and Drug Abuse Patient Records regulations: The Federal rules restrict any use of the information to criminally investigate or prosecute any alcohol or drug abuse patient.[facility] HealthIn the event this information is protected by the Federal Confidentiality of Alcohol and Drug Abuse Patient Records regulations: The Federal rules restrict any use of the information to criminally investigate or prosecute any alcohol or drug abuse patient.[facility] HealthIn the event this information is protected by the Federal Confidentiality of Alcohol and Drug Abuse Patient Records regulations: The Federal rules restrict any use of the information to criminally investigate or prosecute any alcohol or drug abuse patient.[facility] HealthIn the event this information is protected by the Federal Confidentiality of Alcohol and Drug Abuse Patient Records regulations: The Federal rules restrict any use of the information to criminally investigate or prosecute any alcohol or drug abuse patient.[facility] HealthIn the event this information is protected by the Federal Confidentiality of Alcohol and Drug Abuse Patient Records regulations: The Federal rules restrict any use of the information to criminally investigate or prosecute any alcohol or drug abuse patient.[facility] HealthIn the event this information is protected by the Federal Confidentiality of Alcohol and Drug Abuse Patient Records regulations: The Federal rules restrict any use of the information to criminally investigate or prosecute any alcohol or drug abuse patient.[facility] HealthIn the event this information is protected by the Federal Confidentiality of Alcohol and Drug Abuse Patient Records regulations: The Federal rules restrict any use of the information to criminally investigate or prosecute any alcohol or drug abuse patient.[facility] HealthIn the event this information is protected by the Federal Confidentiality of Alcohol and Drug Abuse Patient Records regulations: The Federal rules restrict any use of the information to criminally investigate or prosecute any alcohol or drug abuse patient.[facility] HealthIn the event this information is protected by the Federal Confidentiality of Alcohol and Drug Abuse Patient Records regulations: The Federal rules restrict any use of the information to criminally investigate or prosecute any alcohol or drug abuse patient.[facility] HealthIn the event this information is protected by the Federal Confidentiality of Alcohol and Drug Abuse Patient Records regulations: The Federal rules restrict any use of the information to criminally investigate or prosecute any alcohol or drug abuse patient.[facility] HealthIn the event this information is protected by the Federal Confidentiality of Alcohol and Drug Abuse Patient Records regulations: The Federal rules restrict any use of the information to criminally investigate or prosecute any alcohol or drug abuse patient.[facility] HealthIn the event this information is protected by the Federal Confidentiality of Alcohol and Drug Abuse Patient Records regulations: The Federal rules restrict any use of the information to criminally investigate or prosecute any alcohol or drug abuse patient.[facility] HealthIn the event this information is protected by the Federal Confidentiality of Alcohol and Drug Abuse Patient Records regulations: The Federal rules restrict any use of the information to criminally investigate or prosecute any alcohol or drug abuse patient.[facility] HealthIn the event this information is protected by the Federal Confidentiality of Alcohol and Drug Abuse Patient Records regulations: The Federal rules restrict any use of the information to criminally investigate or prosecute any alcohol or drug abuse patient.[facility] HealthIn the event this information is protected by the Federal Confidentiality of Alcohol and Drug Abuse Patient Records regulations: The Federal rules restrict any use of the information to criminally investigate or prosecute any alcohol or drug abuse patient.[facility] HealthIn the event this information is protected by the Federal Confidentiality of Alcohol and Drug Abuse Patient Records regulations: The Federal rules restrict any use of the information to criminally investigate or prosecute any alcohol or drug abuse patient.[facility] Teams (unrecognized sec tion and content) Research Specialist Relationship Specialty Start Date End Date Ricardo Ruiz DO [address] [place] [address] PCP - General Family Practice 01/24/20 Harshad Dawson [address] [address] Anesthesiology 09/26/21 Joseph Retana MD [address] [place] [address] Urology 09/26/21 Research Specialist Relationship Specialty Start Date End Date Ricardo Ruiz DO [address] [place] [address] PCP - General Family Practice 01/24/20 [place] [address] Anesthesiology 09/26/21 Joseph Retana MD [address] [place] [address] Urology 09/26/21 Research Specialist Relationship Specialty Start Date End Date Ricardo Ruiz DO [address] [place] [place] [address] PCP - General Family Practice 01/24/20 Harshad Dawson [address] [place] [address] Anesthesiology 09/26/21 Joseph Retana MD [address] [place] [address] Urology 09/26/21 Research Specialist Relationship Specialty Start Date End Date Ricardo Ruiz DO [address] [place] [address] PCP - General Family Practice 01/24/20 Harshad Dawson, DO [address] [place] [address] Anesthesiology 09/26/21 Joseph Retana MD [address] [place] [address] Urology 09/26/21 Research Specialist Relationship Specialty Start Date End Date Ricardo Ruiz DO [address] [address] [place] [facility] [address] PCP - General Family Practice 01/24/20 Harshad Dawson, DO [address] [place] [address] Anesthesiology 09/26/21 Joseph Retana MD [address] [place] [address] Urology 09/26/21 Research Specialist Relationship Specialty Start Date End Date Ricardo Ruiz, DO [address] [facility] [address] PCP - General Family Practice 01/24/20 Harhsad Dawson, DO [address] [facility] [place] [address] Anesthesiology 09/26/21 Joseph Retana MD [address] [facility] [place] [address] Urology 09/26/21 Research Specialist Relationship Specialty Start Date End Date Ricardo Ruiz, [address] [facility] [address] PCP - General Family Medicine 01/24/20 Harshad Dawson, DO [address] [facility] [place] [address] Anesthesiology 09/26/21 Joseph Retana MD [address] [facility] [place] [address] Urology 09/26/21 Research Specialist Relationship Specialty Start Date End Date Ricardo Ruiz, [address] [facility] [place] [address] PCP - General Family Medicine 01/24/20 Harshad aDwson, DO [address] [place] [address] Anesthesiology 09/26/21 Joseph Retana MD [address] [facility] [place] [address] Urology 09/26/21 Research Specialist Relationship Specialty Start Date End Date Ricardo Ruiz, [address] [place] [address] PCP - General Family Medicine 01/24/20 Harshad Dawson, DO [address] [facility] [place] [address] Anesthesiology 09/26/21 Joseph Retana MD [address] [place] [address] Urology 09/26/21 Research Specialist Relationship Specialty Start Date End Date Ricardo Ruiz DO [address] [place] [address] PCP - General Family Medicine 01/24/20 Harshad Dawson, DO [address] [facility] [place] [address] Anesthesiology 09/26/21 Joseph Retana MD [address] [place] [address] Urology 09/26/21 Team Status: Active Member Role Status Dates Dr. Ricardo Ruiz DO Family Provider Active Dr. Ricardo Ruiz DO Primary Care Provider Active Team Status: Inactive Member Role Status Dates Dr. Ricardo Ruiz DO Primary Care Provider Active Dr. Yoni Oleary MD Attending Provider, Emergency Provi lorenza Active Team Status: Inactive Member Role Status Dates Dr. Ricardo Ruiz DO Primary Care Provider Active Dr. Vini Duarte DO Attending Provider, Emergency Provide r Active Team Status: Inactive Member Role Status Dates Dr. Ricardo Ruiz DO Primary Care Provider Active Dr. Percy Solorzano MD Attending Provider, Emergency Provider Active Team Status: Inactive Member Role Status Dates Dr. Ricardo Ruiz DO Primary Care Provider Active Dr. Bradford Ibrahim MD Attending Provider Activ e Research Specialist Relationship Specialty Start Date End Date Ricardo Ruiz, [address] [facility] [place] [address] PCP - General Family Medicine 01/24/20 Harshad Dawson, DO [address] [facility] [place] [address] Anesthesiology 09/26/21 Joseph Retana MD [address] [place] [address] Urology 09/26/21 Team Status: Inactive Member Role Status Dates Dr. Ricardo Ruiz DO Primary Care Provider Active Dr. Devi Fortune MD Emergency Provider Active Research Specialist Relationship Specialty Start Date End Date Ricardo Ruiz, [address] [place] [address] PCP - General Family Medicine 01/24/20 Harshad Dawson, DO [address] [facility] [place] [address] Anesthesiology 09/26/21 Joseph Retana MD [address] [place] [address] Urology 09/26/21 Research Specialist Relationship Specialty Start Date End Date Ricardo Ruiz, [address] [place] [place] [address] PCP - General Family Medicine 01/24/20 Harshad Dawson, DO [address] [facility] [place] [address] Anesthesiology 09/26/21 Joseph Retana MD [address] [place] [address] Urology 09/26/21 Research Specialist Relationship Specialty Start Date End Date Ricardo Ruiz DO [address] [place] [place] [address] PCP - General Family Medicine 01/24/20 Harshad Dawson, DO [address] [place] [address] Anesthesiology 09/26/21 Joseph Retana MD [address] [place] [address] Urology 09/26/21 Research Specialist Relationship Specialty Start Date End Date Ricardo Ruiz, [address] [place] [address] PCP - General Family Medicine 01/24/20 Harshad Dawson, DO [address] [place] [address] Anesthesiology 09/26/21 Joseph Retana MD [address] [place] [address] Urology 09/26/21 Research Specialist Relationship Specialty Start Date End Date Ricardo Ruiz, [address] [place] [address] PCP - General Family Medicine 01/24/20 Harshad Dawson, DO [address] [place] [address] Anesthesiology 09/26/21 Joseph Retana MD [address] [place] [address] Urology 09/26/21 Research Specialist Relationship Specialty Start Date End Date Ricardo Ruiz, DO [address] [place] [address] PCP - General Family Medicine 01/24/20 Harshad Dawson, DO [address] [facility] [place] [address] Anesthesiology 09/26/21 Joseph Retana MD [address] [place] [address] Urology 09/26/21 Team Status: Inactive Member Role Status Dates Dr. Ricardo Ruiz , DO Primary Care Provider, Referring Provider Active Lenard YOUNG, PA Attending Provider Active Team Status: Active Member Role Status Dates Dr. Ricardo Ruiz , DO Primary Care Provider Active Dinorah Petersen TALENT ACQUISITION PARTNER, TALENT ACQUISITION PARTNER-C Attending Provider, Other Pro vider Active Lenard YOUNG, [place] Referring Provider Active Team Status: Inactive Member Role Status Dates Dr. Ricardo Ruiz , DO Primary Care Provider Active Dr. Devi Fortune MD Attending Provider, Emergency Provider Active Team Status: Inactive Member Role Status Dates Dr. Ricardo Ruiz , DO Primary Care Provider Active Dinorah Petersen TALENT ACQUISITION PARTNER, TALENT ACQUISITION PARTNER-C Attending Provider Active Lenard YOUNG, [place] Referring Provider Active Team Status: Inactive Member Role Status Dates Dr. Ricardo Ruiz , DO Primary Care Provider Active Dr. Jeremiah Mccormack , DO Emergency Provider Active Research Specialist Relationship Specialty Start Date End Date Ricardo Ruiz, [address] [place] [address] PCP - General Family Medicine 01/24/20 Harshad Dawson, DO [address] [place] [address] Anesthesiology 09/26/21 Joseph Retana MD [address] [place] [address] Urology 09/26/21 Research Specialist Relationship Specialty Start Date End Date Ricardo Ruiz DO [address] [place] [address] PCP - General Family Medicine 01/24/20 Harshad Dawson DO [address] [facility] [place] [address] Anesthesiology 09/26/21 [facility] [address] [place] [address] Urology 09/26/21 Research Specialist Relationship Specialty Start Date End Date Ricardo Ruiz DO [address] [place] [address] PCP - [facility] Medicine 01/24/20 Harshad Dawson DO [address] [facility] [place] [address] Anesthesiology 09/26/21 [facility] [place] [address] [place] [address] Urology 09/26/21 Team Status: Inactive Member Role Status Dates Dr. Ricardo Ruiz DO Primary Care Provider, Referring Provider Active Dr. Katheryn Walton MD Attending Provider Active Team Status: Inactive Member Role Status Dates Dr. Ricardo Ruiz DO Primary Care Provider Active Dr. Jeremiah Mccormack DO Attending Provider, Emergency Pr ovider Active Team Status: Inactive Member Role Status Dates Dr. Ricardo Ruiz DO Primary Care Provider Active Dr. Priyank Jaramillo MD Emergency Provider Active Research Specialist Relationship Specialty Start Date End Date Ricardo Ruiz DO [address] [place] [facility] [address] PCP - General Family Medicine 01/24/20 Harshad Dawson DO [address] [place] [address] Anesthesiology 09/26/21 Joseph Retana MD [address] [place] [address] Urology 09/26/21 Research Specialist Relationship Specialty Start Date End Date Ricardo Ruiz DO [address] [place] [place] [facility] [address] PCP - General Family Medicine 01/24/20 Harshad Dawson DO [address] [place] [address] Anesthesiology 09/26/21 Joseph Retana MD [address] [place] [address] Urology 09/26/21 Research Specialist Relationship Specialty Start Date End Date Ricardo Ruiz DO [address] [place] [address] PCP - General Family Medicine 01/24/20 Harshad Dawson DO [address] [place] [address] Anesthesiology 09/26/21 Joseph Retana MD [address] [place] [address] Urology 09/26/21 Research Specialist Relationship Specialty Start Date End Date Ricardo Ruiz DO [address] [place] [place] [facility] [place] [address] PCP - General Family Medicine 01/24/20 Harshad Dawson, [address] [place] [address] Anesthesiology 09/26/21 Joseph Retana MD [address] [place] [address] Urology 09/26/21 Research Specialist Relationship Specialty Start Date End Date Ricardo Ruiz DO [address] [place] [address] PCP - General Family Medicine 01/24/20 Harshad Dawson DO [address] [place] [address] Anesthesiology 09/26/21 Joseph Retana MD [address] [place] [address] Urology 09/26/21 Research Specialist Relationship Specialty Start Date End Date Ricardo Ruiz DO [address] [place] [address] PCP - General Family Medicine 01/24/20 Harshad Dawson, [address] [place] [address] Anesthesiology 09/26/21 Joseph Retana MD [address] [place] [address] Urology 09/26/21 Research Specialist Relationship Specialty Start Date End Date Ricardo Ruiz DO [address] [place] [address] PCP - General Family Medicine 01/24/20 Harshad Dawson DO [address] [place] [address] Anesthesiology 09/26/21 Joseph Retana MD [address] [place] [address] Urology 09/26/21 Research Specialist Relationship Specialty Start Date End Date Ricardo Ruiz DO [address] [place] [address] PCP - General Family Medicine 01/24/20 Harshad Dawson DO [address] [place] [address] Anesthesiology 09/26/21 Joseph Retana MD [address] [place] [address] Urology 09/26/21 Research Specialist Relationship Specialty Start Date End Date Ricardo Ruiz DO [address] [place] [address] PCP - General Family Medicine 01/24/20 Harshad Dawson DO [address] [place] [address] Anesthesiology 09/26/21 Joseph Retana MD [address] [place] [address] Urology 09/26/21 Research Specialist Relationship Specialty Start Date End Date Ricardo Ruiz DO [address] [place] [address] PCP - General Family Medicine 01/24/20 Harshad Dawson DO [address] [place] [address] Anesthesiology 09/26/21 Joseph Retana MD [address] [place] [address] Urology 09/26/21 Research Specialist Relationship Specialty Start Date End Date Ricardo Ruiz DO [address] [place] [address] PCP - General Family Medicine 01/24/20 Harshad Dawson DO [address] [place] [address] Anesthesiology 09/26/21 Joseph Retana MD [address] [place] [address] Urology 09/26/21 Research Specialist Relationship Specialty Start Date End Date Ricardo Ruiz DO [address] [place] [address] PCP - General Family Medicine 01/24/20 Harshad Dawson, [address] [place] [address] Anesthesiology 09/26/21 Joseph Retana MD [address] [place] [address] Urology 09/26/21 Research Specialist Relationship Specialty Start Date End Date Ricardo Ruiz DO [address] [place] [address] PCP - General Family Medicine 01/24/20 Harshad Dawson, [address] [place] [address] Anesthesiology 09/26/21 Joseph Retana MD [address] [place] [address] Urology 09/26/21 Research Specialist Relationship Specialty Start Date End Date Ricardo Ruiz DO [address] [place], [place] [address] PCP - General Family Medicine 01/24/20 Harshad Dawson, [address] [place] [address] Anesthesiology 09/26/21 Joseph Retana MD [address] [place] [address] Urology 09/26/21 Research Specialist Relationship Specialty Start Date End Date Ricardo Ruiz DO [address] [place] [address] PCP - General Family Medicine 01/24/20 Harshad Dawson DO [address] [place] [address] Anesthesiology 09/26/21 Joseph Retana MD [address] [place] [address] Urology 09/26/21 Research Specialist Relationship Specialty Start Date End Date Ricardo Ruiz DO [address] [place] [address] PCP - General Family Medicine 01/24/20 Harshad Dawson DO [address] [place] [address] Anesthesiology 09/26/21 Joseph Retana MD [address] [place] [address] Urology 09/26/21 Research Specialist Relationship Specialty Start Date End Date Ricardo Ruiz DO [address] [place] [address] PCP - General Family Medicine 01/24/20 Harshad Dawson DO [address] [place] [address] Anesthesiology 09/26/21 Joseph Retana MD [address] [place] [address] Urology 09/26/21 Research Specialist Relationship Specialty Start Date End Date Ricardo Ruiz DO [address] [facility], [place] [address] PCP - General Family Medicine 01/24/20 Harshad Dawson DO [address] [place] [address] Anesthesiology 09/26/21 Joseph Retana MD [address] [place] [address] Urology 09/26/21 Research Specialist Relationship Specialty Start Date End Date Ricardo Ruiz DO [address] [place] [place] [facility] [address] PCP - General Family Medicine 01/24/20 Harshad Dawson DO [address] [place] [address] Anesthesiology 09/26/21 Joseph Retana MD [address] [place] [address] Urology 09/26/21 Research Specialist Relationship Specialty Start Date End Date Ricardo Ruiz DO [address] [facility] [place] [place] [address] PCP - General Family Medicine 01/24/20 Harshad Dawson, [address] [place] [address] Anesthesiology 09/26/21 Joseph Retana MD [address] [place] [address] Urology 09/26/21 Research Specialist Relationship Specialty Start Date End Date Ricardo Ruiz DO [address] [place] [place] [facility] [address] PCP - General [facility] Medicine 01/24/20 Harshad Dawson, [address] [place] [address] Anesthesiology 09/26/21 Joseph Retana MD [address] [place] [address] Urology 09/26/21 Research Specialist Relationship Specialty Start Date End Date Ricardo Ruiz DO [address] [place] [place] [facility] [address] PCP - General Family Medicine 01/24/20 Harshad Dawson, [address] [place] [address] Anesthesiology 09/26/21 Joseph Retana MD [address] [place] [address] Urology 09/26/21 Team Status: Active Member Role Status Dates Dr. Ricardo Ruiz DO Primary Care Provider Active Team Status: Inactive Member Role Status Dates Dr. Ricardo Ruiz DO Primary Care Provider Active Start: October 18, 2024 End: October 19, 2024 Dr. Jeremiah Mccormack DO Attending Provider Active Start: October 18, 2024 End: October 19, 2024 Dr. Jeremiah Mccormack DO Emergency Provider Active Start: October 18, 2024 End: October 19, 2024 Team Status: Inactive Member Role Status Dates Dr. Ricardo Ruiz DO Primary Care Provider Active Start: December 13, 2024 End: December 13, 2024 Dr. Vaughn Steele MD Attending Provider Active Start: December 13, 2024 End: December 13, 2024 Dr. Vaughn Steele MD Referring Provider Active Start: December 13, 2024 End: December 13, 2024 Research Specialist Relationship Specialty Start Date End Date Ricardo Ruiz DO [address] [place] [address] PCP - General Family Medicine 01/24/20 Harshad Dawson DO [address] [place], [place] [address] [address] Anesthesiology 09/26/21 Joseph Retana MD [address] [place] [address] Urology 09/26/21 Research Specialist Relationship Specialty Start Date End Date Ricardo Ruiz DO [address] [place] [address] PCP - General Family Medicine 01/24/20 Harshad Dawson DO [address] [place] [address] Anesthesiology 09/26/21 Joseph Retana MD [address] [place] [address] Urology 09/26/21 Team Status: Active Member Role/Relationship Status Dates Dr. Ricardo Ruiz DO Primary Care Provider Active Team Status: Inactive Member Role/Relationship Status Dates Dr. Ricardo Ruiz DO Primary Care Provider Active Start: December 13, 2024 End: December 13, 2024 Dr. Vaughn Steele MD Attending Provider Active Start: December 13, 2024 End: December 13, 2024 Dr. Vaughn Steele MD Referring Provider Active Start: December 13, 2024 End: December 13, 2024 Team Status: Inactive Member Role/Relationship Status Dates Dr. Ricardo Ruiz DO Primary Care Provider Active Start: March 06, 2025 End: March 06, 2025 Dr. Vaughn Steele MD Attending Provider Active Start: March 06, 2025 End: March 06, 2025 Dr. Vaughn Steele MD Referring Provider Active Start: March 06, 2025 End: March 06, 2025 Research Specialist Relationship Specialty Start Date End Date Ricardo Ruiz DO [address] [facility] [place] [address] PCP - General Family Medicine 01/24/20 Harshad Dawson DO [address] [place] [address] Anesthesiology 09/26/21 Joseph Retana MD [address] [place] [address] Urology 09/26/21 Care Team (unrecognized sect ion and content) Care Team Personnel Name: RICARDO RUIZ DO Position: P4 Physician - Primary Care Med Service: Active Provider Member Role: Primary Care Physician Address: Address: [address] Care Team Related Persons Name: JONNA ORELLANA Care Team Personnel Name: Vannesa Buck [employer]ator [facility] [employer] [facility] [place] Position: P3 Scheduling - [employer]ator [employer] Advanced Member Role: Other Name: RICARDO RUIZ DO Position: P4 Physician - Primary Care Med Service: Active Provider Member Role: Primary Care Physician Address: Address: [address] Name: Reji Barahona Position: P3 Scheduling - [employer]ator [employer] Advanced Member Role: Other Care Team Related Persons Name: JONNA ORELLANA Care Team Personnel Name: Vannesa Buck Curator [facility] [employer] [facility] [place] Position: P3 Scheduling - [employer]ator [employer] Advanced Member Role: Other Name: RICARDO RUIZ DO Position: P4 Physician - Primary Care Med Service: Active Provider Member Role: Primary Care Physician Address: Address: [address] Name: Reji Barahona Position: P3 Scheduling - [employer]ator [employer] Advanced Member Role: Other Care Team Related Persons Name: JONNA ORELLANA Care Team Personnel Name: Vannesa Buck Curator [employer] [facility] [place] Position: P3 Scheduling - [employer]ator [employer] Advanced Member Role: Other Name: RICARDO RUIZ DO Position: P4 Physician - Primary Care Med Service: Active Provider Member Role: Primary Care Physician Address: Address: [address] Name: Reji Barahona Position: P3 Scheduling - [employer]ator [employer] Advanced Member Role: Other Care Team Related Persons Name: JONNA ORELLANA Care Team Personnel Name: Vannesa Buckremma [place] Position: P3 Scheduling - [employer]ator [employer] Advanced Member Role: Other Name: RICARDO RUIZ DO Position: P4 Physician - Primary Care Member Role: Primary Care Physician Address: Address: [address] Name: Reji Barahona Position: P3 Scheduling - [employer]ator [employer] Advanced Member Role: Other Care Team Related Persons Name: JONNA ORELLANA Care Team Personnel Name: Vannesa Buck Position: P3 Scheduling - [employer]ator [employer] Advanced Member Role: Other Name: RICARDO RUIZ DO Position: P4 Physician - Primary Care Member Role: Primary Care Physician Address: Address: [address] Name: Reji Barahona Position: P3 Scheduling - [employer]ator [employer] Advanced Member Role: Other Care Team Related Persons Name: JONNA ORELLANA Care Team Personnel Name: RICARDO RUIZ DO Position: P4 Physician - Primary Care Member Role: Primary Care Physician Address: Address: [address] Name: Reji Barahona Position: P3 Scheduling - [employer]ator [employer] Advanced Member Role: Other Care Team Related Persons Name: JONNA ORELLANA Care Team Personnel Name: RICARDO RUIZ DO Position: P4 Physician - Primary Care Member Role: Primary Care Physician Address: Address: [address] Name: Reji Barahona Position: P3 Scheduling - [employer]ator [employer] Advanced Member Role: Other Care Team Related Persons Name: JONNA ORELLANA Care Team Personnel Name: RICARDO RUIZ DO Position: P4 Physician - Primary Care Member Role: Primary Care Physician Address: Address: [address] Name: Reji Barahona Position: P3 Scheduling - Curator [employer] Advanced Member Role: Other Care Team Related Persons Name: JONNA ORELLANA Care Team Personnel Name: RICARDO RUIZ DO Position: P4 Physician - Primary Care Member Role: Primary Care Physician Address: Address: [address] Name: Reji Barahona Position: P3 Scheduling - [employer]ator [employer] Advanced Member Role: Other Care Team Related Persons Name: JONNA ORELLANA FOR RECORDS PERTAINING TO PATIENTS WHO ARE OR HAVE BEEN ENROLLED IN A CHEMICAL DEPENDENCY/SUBSTANCEABUSE PROGRAM, SOME INFORMATION MAY BE OMITTED. This clinical summary was aggregated from multiple sources. Caution should be exercised in using it in the provision of clinical care. This summary normalizes information from multiple sources, and as a consequence, information in this document may materially change the coding, format and clinical context of patient data. In addition, data may be omitted in some cases. CLINICAL DECISIONS SHOULD BE BASED ON THE PRIMARY CLINICAL RECORDS. [facility] [employer] [facility]. provides no warranty or guarantee of the accuracy or completeness of information in this document.
[2025-07-29] MEDS: 0.9% Normal Saline (1000mL) 1,000 ML 999 ML IV (00:23)
[2025-07-29 00:24] LABS: Hematocrit 32.3 % (37-47); Hemoglobin 10.8 g/dL (12.0-15.0); Immature Granulocytes Count 0.010 X10^3/uL (0.0-0.0); Mean Corp Hgb Conc 33.4 g/dL (32-36); Mean Corpuscular Volume 86.4 fL (81-99); Mean Platelet Vol. 10.0 fl (6.2-12.0); NRBC Flagged by Analyzer 0 % (0-5); Platelet Count 198 K/mm3 (150-450); RBC Distribution Width CV 12.3 % (11.6-14.6); RBC Distribution Width SD 38.1 fl (35.1-43.9); Red Blood Count 3.74 M/mm3 (4.2-5.4); White Blood Count 5.4 K/mm3 (4.4-11.0)
--- NOTE | 2025-07-29 00:29 | EDS_ITS ---
HPI History of Present Illness Chief Complaint: Hypertension Narrative Narrative: Patient was seen and examined after presenting to ED for hypertension she feels like a burning sensation in her chest and abdomen she states "I just feel like my chest and my stomach are on fire." Patient is on medications for hypertension she states that she is also anticoagulated on Eliquis because she has had history of PEs and she states that she is on this for life. [facility] Medical History Carpal tunnel syndrome of left wrist IBS (irritable bowel syndrome) High cholesterol Back problem CISCO (obstructive sleep apnea) Bronchiectasis Pulmonary fibrosis Asthma Tumor of bladder neck Infection of kidney Pneumonia Lymphedema Spinal stenosis Vitamin D deficiency Bilateral cataracts Mass of right chest wall Breast cancer Urinary retention Severe sepsis Chronic pain Osteoporosis Kidney stones GERD (gastroesophageal reflux disease) Former smoker Pulmonary embolism COPD (chronic obstructive pulmonary disease) DVT (deep venous thrombosis) Migraines Generalized weakness Limb weakness Thyroid disease Limb weakness Difficulty balancing Knee pain Shoulder pain Shortness of breath Arthritis Hypertension history of blood clot UTI (urinary tract infection) Home Medications Medication Instructions Recorded Last Taken Type levothyroxine 50 mcg tablet 50 mcg PO DAILY 12/19/13 0 06/08/17 History lidocaine 5 % topical ointment 35 g topical TID PRN Pa in 03/11/18 Unknown History methylphenidate HCl 20 mg tablet 20 mg PO BID 02/14/22 Unknown History omeprazole 20 mg capsule,delayed 40 mg PO DAILY Check with primary 02/14/22 Unknown History release doctor albuterol sulfate 90 mcg/actuation 2 inh inhalation MS N PRN Shortness 02/17/22 Unknown History aerosol inhaler Of Breath beclomethasone dipropionate 80 2 inh inhalation BID Ch geov[place] with 02/17/22 Unknown History mcg/actuation HFA breath activated primary doctor aerosol lisinopril 5 mg tablet 5 mg PO DAILY #30 tabs 08/28 Unknown Rx Held on 03/31/23. Instructions: Ordered nebivolol 10 mg tablet 20 mg PO .QAM 03/31/23 Unkno wn History apixaban 5 mg tablet (Eliquis) 5 mg PO BID #74 tabs Unknown Rx ergocalciferol (vitamin D2) 1,250 1,250 mcg PO QWEEK 0 02/21/24 Unknown History mcg (50,000 unit) capsule hydralazine 25 mg tablet 25 mg PO QHS PRN HIGH BP 06/07 Unknown History pregabalin 200 mg capsule 200 mg PO TID 02/21/24 Unkno wn History calcitriol 0.25 mcg capsule 0.5 mcg PO BID 07/29/25 Un known History calcium 500 mg (as 2 tab PO BID 07/29/25 Unknow n History carbonate)-vitamin D3 10 mcg (400 unit) tablet cyclosporine 0.05 % eye drops in a 1 drp ophthalmic (e ye) BID 07/29/25 Unknown History dropperette ferrous sulfate 325 mg (65 mg 325 mg PO QODAY 07/29/25 Unknown History iron) tablet,delayed release hydrocodone 10 mg-acetaminophen 1 tab PO Q6H PRN PRN p ain 07/29/25 Unknown History 325 mg tablet levothyroxine 100 mcg tablet 100 mcg PO DAILY 07/29/25 Unknown History lidocaine 5 % topical patch 1 patch topical DAILY 07/15 02/05 Unknown History liothyronine 25 mcg tablet 25 mcg PO DAILY 07/29/25 Un known History losartan 50 mg tablet 50 mg PO BID 07/29/25 Unknow n History Allergy/AdvReac Type Severity Reaction Status Date / Time latex Allergy Mild Rash Verified 07/29/25 00:01 doxycycline Allergy Unknown weakness Verified 07/29/25 00:01 montelukast Allergy Unknown Rash Verified 07/29/25 00:01 Iodinated Contrast Media Allergy rash, Verified 07/29/25 00:01 (iodine contrast) swelling Sulfa (Sulfonamide Allergy Hives Verified 07/29/25 00:01 Antibiotics) oxycodone (From Percocet) AdvReac Other Verified 07/29/25 00:01 Family History Mother Cancer gastric cancer at 93 Father Emphysema lung Heart disease Brother Heart disease Diabetes Surgical History History of carpal tunnel surgery of left wrist H/O lateral meniscus repair of right knee History of cataract removal with insertion of prosthetic lens History of lumpectomy of right breast History of blepharoplasty History of hand surgery History of bladder suspension procedure History of spinal fusion History of cardiac catheterization History of excision of mass History of cholecystectomy H/O elbow surgery H/O knee surgery History of hysterectomy with bilateral oophorectomy History of appendectomy H/O right mastectomy Social History household members: spouse and other details: raising her great grandson current occupational status: retired Smoking Status: Never smoker Tobacco: How many years used: 15 how long ago did patient quit smoking: smoked less than a pack per week for 15 years alcohol intake: never substance use type: does not use additional social history: Does Take Aspirin Does Take Ibuprofen ROS ROS ED ROS Narrative Pertinent Positives: History of PEs fiery sensation involving her chest and abdomen and then hypertension not improving despite hydralazine use at home Pertinent Negatives: Fevers chills vomiting diarrhea black or bloody stools urinary symptoms The remainder of review of systems negative unless otherwise stated in the HPI above. Systems reviewed including constitutional, psychiatric, cardiovascular, respiratory, integument, HENT, gastrointestinal. EXAM Physical Exam Narrative Exam Narrative: Patient is afebrile she does not appear toxic or in distress she is hypertensive however systolic in the 190s oxygenating well on room air she has normal heart and lung sounds she has intact and equal MSPs in all of her extremities. No low er extremity edema or calf tenderness. Abdomen is soft nontender nondistended no palpable pulsatile mass Const Vital Signs: 07/28/25 23:58 07/29/25 00:01 07/29/25 00:11 Temperature 98.1 F Temperature Source Oral Pulse Rate 74 Respiratory Rate 14 Respiratory Pattern Normal Blood Pressure 194/80 H Blood Pressure Mean 118 Pulse Ox 99 97 Oxygen Delivery Method Room Air Room Air 07/29/25 00:24 07/29/25 01:00 07/29/25 01:52 Temperature Temperature Source Pulse Rate 76 84 81 Respiratory Rate 28 H 18 20 H Respiratory Pattern Blood Pressure 154/90 H 132/64 H 134/74 H Blood Pressure Mean 111 86 94 Pulse Ox 98 94 97 Oxygen Delivery Method Room Air Room Air Room Air 07/29/25 03:35 07/29/25 04:00 Temperature Temperature Source Pulse Rate 83 84 Respiratory Rate 18 16 Respiratory Pattern Blood Pressure 131/64 H 133/66 H Blood Pressure Mean 86 88 Pulse Ox 98 95 Oxygen Delivery Method MDM MDM MDM Narrative Medical decision making narrative: Nursing notes, triage notes, available previous documentation, and vital signs were reviewed. Any discrepancies noted were addressed. Differential Diagnoses: Evaluate for signs of endorgan damage from hypertensive emergency will check for signs of ACS low suspicion for PE given that she is anticoagulated no suspicion for aortic etiology Interventions: Labetalol Zofran morphine methylprednisolone Benadryl Fluids Given: 1 L normal saline Labs Reviewed: No leukocytosis or leukopenia hemoglobin is stable at 10.8. No electrolyte abnormality renal insufficiency transaminitis initial troponin was 14 delta troponin slightly elevated at 17 likely secondary to her hypertension that she had proBNP was 1852 Imaging Reviewed: Personally reviewed and interpreted by me: Chest x-ray to me it appeared like she has some cephalization with like central vascular congestion and widened mediastinum however I could not see this on the CT angio of the chest abdomen and pelvis which the official read for the CT angio of the chest abdomen and pelvis did not show any acute pathology such as dissection or aneurysm EKG: Normal sinus rhythm rate of 73. I do not see evidence of ACS. No evidence of prolonged QT syndrome. No evidence of AV Block. No short MS intervals, wide QRS, or Delta waves indicative of WPW. No evidence of dagger-like q waves or LVH indicative of Hypertrophic Cardiomyopathy. No evidence of Brugada Syndrome. EKG interpretation is noted and agreed to in the EMR. The interpretation of this patient's EKG contributed directly to the care and management of this patient. Previous Documentation Reviewed: None available or applicable at this time. ED Course: Patient presenting with the symptoms as described above she was given medications for that her hypertension especially given that she is somewhat symptomatic but she is not having any headache or vision changes but she will undergo evaluation for signs of endorgan damage. On reevaluation patient's blood pressure has improved. Her CTs are otherwise unremarkable her delta troponin just slightly elevated likely secondary to her elevated blood pressures that she was having earlier when I went in and offered the patient admission she actually declined and stated that she would like to go home again her blood pressure has significantly improved I advised her to monitor her blood pressure at home after she takes her medications and to keep a blood pressure log and follow-up with her medical care team to find out if she needs to make any sort of adjustments otherwise return precautions follow-up recommendations provided she stable for discharge home This note was made utilizing voice recognition software. All attempts were made to correct spelling or other errors prior to note completion. However, due to the fast-paced nature of emergency medicine, some errors may still be present. Lab Data Labs: Laboratory Results - last 24 hr 07/29/25 07/29/25 00:03 02:05 WBC 5.4 RBC 3.74 L Hgb 10.8 L Hct 32.3 L MCV 86.4 MCH 28.9 MCHC 33.4 RDW Std Deviation 38.1 RDW Coeff of Mahi 12.3 Plt Count 198 MPV 10.0 Immature Gran % (Auto) 0.200 Neut % (Auto) 60.1 Lymph % (Auto) 27.0 Nobles % (Auto) 8.7 Eos % (Auto) 3.1 Baso % (Auto) 0.9 Absolute Neuts (auto) 3.2 Absolute Lymphs (auto) 1.46 Nucleated RBC % 0 PT 17.2 H INR 1.4 APTT 33.9 Sodium 136 Potassium 4.0 Chloride 103 Carbon Dioxide 22.7 Anion Gap 10 BUN 9 Creatinine 0.65 L Estim Creat Clear Calc 48.74 L Est GFR (MDRD) Non-Af 88 BUN/Creatinine Ratio 13.6 Glucose 110 H Calcium 8.8 Total Bilirubin 0.33 AST 30 ALT 17 Alkaline Phosphatase 63 Troponin T High Sens 14 Troponin T Hi Sens 2 Hr 17 H NT pro BNP II 1852 H Total Protein 6.3 Albumin 3.7 Globulin 2.5 Albumin/Globulin Ratio 1.5 Radiography Diagnostic Testing: Clinical Impression(s) from Imaging Studies Chest X-Ray 07/29/25 00:40 IMPRESSION: No Acute Findings. Reading [facility] Chest/Abdomen/Pelvis CTA 07/29/25 00:40 IMPRESSION: Right mastectomy. Right axillary lymph node dissection, unchanged. Bilateral basilar atelectatic pulmonary changes. Prior cholecystectomy. Unremarkable low lumbar fusion metallic hardware. Prior decompression and fusion at L5-S1. Grade 1 anterolisthesis of L4 on L5. Bilateral fat containing inguinal hernias without incarceration. Fat containing umbilical hernia without incarceration. No CT evidence of pulmonary embolus or aortic dissection. Reading Location: [facility] Discharge Plan Triage Chief Complaint: Hypertension ED Provider: Choujaa,Nidal Dx/Rx/DC Orders Clinical Impression: Hypertensive urgency, Elevated troponin, Discomfort in chest Instructions: ED High Blood Pressure Hypertension Prescriptions: No Action methylphenidate HCl 20 mg tablet 20 mg PO BID omeprazole 20 mg capsule,delayed release(DR/EC) 40 mg PO DAILY albuterol sulfate 90 mcg/actuation HFA aerosol inhaler 2 inh inhalation PRN PRN (Reason: Shortness Of Breath) Patient Comments: INHALE 2 PUFFS BY MOUTH and into the lungs FOUR TIMES DAILY NEEDED beclomethasone dipropionate 80 mcg/actuation HFA aerosol breath activated 2 inh inhalation BID Patient Comments: INHALE 2 PUFFS BY MOUTH and into the lungs TWICE DAILY levothyroxine 50 MCG tablet 50 mcg PO DAILY Patient Comments: Thyroid lidocaine 35 GM ointment 35 g topical TID PRN (Reason: Pain) Patient Comments: 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 lisinopril 5 mg tablet 5 mg PO DAILY Qty: 30 0RF nebivolol 10 mg tablet 20 mg PO .QAM Patient Comments: TAKE 2 TABLETS BY MOUTH IN THE MORNING AND TAKE 1 TABLET IN THE EVENING Eliquis 5 mg tablet 5 mg PO BID Qty: 74 0RF Rx Instructions: 10 mg twice a day for the first week. Then 5 mg twice a day. hydralazine 25 mg tablet 25 mg PO QHS PRN (Reason: HIGH BP) ergocalciferol (vitamin D2) 1,250 mcg (50,000 unit) capsule 1,250 mcg PO QWEEK pregabalin 200 mg capsule 200 mg PO TID losartan 50 mg tablet 50 mg PO BID calcitriol 0.25 mcg capsule 0.5 mcg PO BID hydrocodone-acetaminophen 10-325 mg tablet 1 tab PO Q6H PRN PRN (Reason: pain) levothyroxine 100 mcg tablet 100 mcg PO DAILY ferrous sulfate 325 mg (65 mg iron) tablet,delayed release (DR/EC) 325 mg PO QODAY cyclosporine 0.05 % dropperette 1 drp ophthalmic (eye) BID calcium carbonate-vitamin D3 500 mg-10 mcg (400 unit) tablet 2 tab PO BID liothyronine 25 mcg tablet 25 mcg PO DAILY lidocaine 5 % adhesive patch,medicated 1 patch topical DAILY Primary Care Provider: Ronaldo Ruiz Referrals: Ronaldo Ruiz DO [Primary Care Provider, Family Practice] Activity Restrictions/Additional Instructions: Be sure to follow-up with your medical care team especially whoever manages your blood pressure I would keep a blood pressure log about an hour or so after you take your blood pressure medicine to see where you are sitting that to see if any adjustments need to be made obviously please return if you are having any new or worsening symptoms Print Language: Yi Disposition Disposition: Home, Self Care
--- NOTE | 2025-07-29 00:40 | CT_ITS ---
PROCEDURE: CTA CHST, ABD, PEL W AND/OR WO 07/29/2025 REASON FOR EXAM: CHEST AND ABDOMINAL PAIN TECHNIQUE: Procedure Code: CTCTA.CHAP.2 Modality: CT Procedure: CTA CHST, ABD, PEL W AND/OR WO Coronal and Sagittal reconstruction series were provided. One or more dose reduction techniques were used (e.g., Automated exposure control, adjustment of the mA and/or kV according to patient size, use of iterative reconstruction technique. CONTRAST: Isovue 370 VOLUME: 100 mL RADIATION DOSE SUMMARY: CTDlvol: 17.12 mGy DLP: 1035 mGycm COMPARISON: CT scan on 02/02/2024. FINDINGS: Right mastectomy. Right axillary lymph node dissection, unchanged. Bilateral basilar atelectatic pulmonary changes. Prior cholecystectomy. Unremarkable low lumbar fusion metallic hardware. Prior decompression and fusion at L5-S1. Grade 1 anterolisthesis of L4 on L5. Bilateral fat containing inguinal hernias without incarceration. Fat containing umbilical hernia without incarceration. Normal enhancement of the main pulmonary artery and right and left pulmonary arteries. Normal enhancement of the bilateral peripheral pulmonary arteries. There is no demonstrated pulmonary embolism. Mild calcified atheromatous plaques of the thoracic aorta and visualized great vessels. There is no demonstrated aortic dissection. Normal heart and pericardium. Normal mediastinum. Normal hilar regions. Normal visualized trachea and bronchi. The remaining lungs are well expanded. Normal remaining pulmonary parenchyma. Normal pleura. Normal liver. Normal extrahepatic biliary system. Normal spleen. Normal pancreas. Normal bilateral adrenal glands. Normal size of the right kidney. There is no right renal mass. There are no right renal calculi. There is no right hydronephrosis. Normal visualized right ureter. Normal size of the left kidney. There is no left renal mass. There are no left renal calculi. There is no left hydronephrosis. Normal visualized left ureter. Normal visualized stomach. Normal small intestine. Normal colon. The appendix is visualized and appears normal. There is no demonstrated peritoneal fluid. Mild calcified atheromatous plaques of the abdominal aorta. Normal inferior vena cava. Normal retroperitoneum. Normal urinary bladder. There is no pelvic mass lesion or lymphadenopathy. There is no pelvic fluid. CT/CTA Chst, Abd, Pel W and/or WO IMPRESSION: Right mastectomy. Right axillary lymph node dissection, unchanged. Bilateral basilar atelectatic pulmonary changes. Prior cholecystectomy. Unremarkable low lumbar fusion metallic hardware. Prior decompression and fusion at L5-S1. Grade 1 anterolisthesis of L4 on L5. Bilateral fat containing inguinal hernias without incarceration. Fat containing umbilical hernia without incarceration. No CT evidence of pulmonary embolus or aortic dissection. Reading Location: [place] [id number]
--- NOTE | 2025-07-29 00:40 | RAD_ITS ---
PROCEDURE: CHEST 1 VIEW (PORTABLE) 07/28/2025 REASON FOR EXAM: CHEST PAIN TECHNIQUE: Frontal view of the chest. COMPARISON: Chest x-ray 02/03/2024 FINDINGS: Hardware: None. Heart: The heart size is normal. Lungs: The lungs are clear. No pneumothorax or pleural effusion. Bones: The bones are unremarkable. Other: Surgical clips project over the right axilla. RAD/Chest 1 View (Portable) IMPRESSION: No Acute Findings. Reading [facility]
[2025-07-29 00:47] LABS: Pro- Brain NATRIURETIC PEPTIDE 1852 pg/mL (<=1800); Troponin T High Sensitivity 14 ng/L (<=14)
[2025-07-29] MEDS: 0.9% Normal Saline (1000mL) 1,000 ML 1000 ML IV (00:48)
[2025-07-29] MEDS: DiphenhydrAMINE 50 MG/ML Syringe IV (01:20)
[2025-07-29 01:29] LABS: Prothrombin Time (Protime)PT. 17.2 SECONDS (11.7-14.9)
[2025-07-29 01:30] LABS: Partial Thromboplast Time 33.9 Seconds (24.1-36.2)
[2025-07-29 02:26] LABS: Troponin T High Sens 2 HR 17 ng/L (<=14)
[2025-07-29 03:38] LABS: AST(SGOT) 30 U/L (<=31); Alanine Aminotransfer ALT/SGPT 17 U/L (<=34); Albumin, Serum 3.7 g/dL (3.4-4.8); Alkaline Phosphatase 63 U/L (35-104); Anion Gap 10 (5-15); BUN 9 mg/dL (4-19); BUN/Creat Ratio 13.6 RATIO (10-20); Calcium,Total 8.8 mg/dL (7.6-11.0); Carbon Dioxide 22.7 mmol/L (21.0-32.0); Chloride 103 mmol/L (98-108); Estimated Creatinine Clearance 48.74 ml/min (50-250); Glucose 110 mg/dL (70-99); Potassium 4.0 mmol/L (3.3-5.1)
[2025-07-29 03:40] LABS: Globulin 2.5 g/dL (2.2-4.2)
== END 2025-07-29 05:51 | disposition home or self-care (01) ==
PROVIDERS: Emergency Provider Specialist/Technologist Athletic Trainer; PCP Family Medicine; Visit Provider Specialist/Technologist Athletic Trainer
DX: I10 Essential (primary) hypertension (principal); J44.9 Chronic obstructive pulmonary disease, unspecified; R07.89 Other chest pain; I16.0 Hypertensive urgency; Z86.718 Personal history of other venous thrombosis and embolism; E78.00 Pure hypercholesterolemia, unspecified; Z87.891 Personal history of nicotine dependence; R79.89 Other specified abnormal findings of blood chemistry; Z86.711 Personal history of pulmonary embolism; Z79.01 Long term (current) use of anticoagulants; Z85.3 Personal history of malignant neoplasm of breast; Z79.899 Other long term (current) drug therapy; Z90.49 Acquired absence of other specified parts of digestive tract; Z90.710 Acquired absence of both cervix and uterus; Z90.11 Acquired absence of right breast and nipple
CPT/HCPCS: 71045; 71275; 74174; 80053; 83880; 84484; 85025; 85610; 85730; 93005; 96361; 96374; 96375; 99285; Q9967; A4216; J2405